=== PATIENT | female | born 1950 | race Hispanic/Latino ===

== ENCOUNTER 2018-09-24 13:06 | Observation (INO) | payer OTHER ==
--- NOTE | 2018-09-24 14:11 | RAD REPORT ---
EXAM DESCRIPTION: Dolly Single View09/24/2018 2:00 pm CLINICAL HISTORY: Chest pain COMPARISON: 2016 FINDINGS: The lungs appear clear of acute infiltrate. The heart is mildly enlarged. Postsurgical changes involve the chest. IMPRESSION: No acute abnormalities displayed
[2018-09-24 14:12] LABS: Protime INR 0.97
[2018-09-24 14:25] LABS: Albumin 3.1 g/dL (3.4-5.0); Bilirubin Direct 0.1 mg/dL (0-0.2); Bilirubin Total 0.3 mg/dL (0.2-1.0); Magnesium 2.1 mg/dL (1.8-2.4); Potassium 4.4 mmol/L (3.5-5.1); Protein, Total 6.6 g/dL (6.4-8.2); Troponin (Emerg Dept Use Only) 0.38 ng/mL (0.0-0.045)
[2018-09-24 14:40] LABS: Absolute Lymphocytes (CBC) 1.1 K/uL (0.7-4.9); Absolute Monocytes 0.6 K/uL (0.1-1.3); Absolute Neutrophil 3.3 K/uL (1.8-8.0); Basophils % 0.4 % (0-1.3); Eosinophils % 1.6 % (0-4.4); Hematocrit 28.2 % (36.0-45.0); Lymphocytes % 20.9 % (15.3-44.8); MCH 30.8 pg (27.0-35.0); MCV 89.6 fL (80-100); MPV 9.5 fL (7.6-11.3); Monocytes % 12.2 % (3.3-12.3); RBC Red Blood Cell Count 3.15 M/uL (3.86-4.86)
[2018-09-24] MEDS ORDERED: ONDANSETRON 4 MG/2 ML VIAL ONE (14:51)
[2018-09-24] MEDS ORDERED: FENTANYL CITR 100 MCG/2 ML ONE (14:51)
--- NOTE | 2018-09-24 15:24 | RAD REPORT ---
EXAM DESCRIPTION: CT - Chest Abd Pelvis Wo Con - 09/24/2018 3:07 pm CLINICAL HISTORY: Chest and abdominal pain. Cough COMPARISON: none TECHNIQUE: Computed axial tomography of the chest, abdomen and pelvis was obtained. Oral contrast wa s given. IV contrast was not requested. All CT scans are performed using dose optimization technique as appropriate and may include automated exposure control or mA/KV adjustment according to patient size. FINDINGS: The evaluation of mediastinum, lawrence, vessels and solid organs is limited secondary to the lack of IV contrast administration 17 millimeter nodules present within the right lobe of thyroid gland. No mediastinal or hilar lymphadenopathy is seen. A pleural effusion is not present. A pericardial effusion is not seen. Mild patchy opacities are present within right upper, right middle, right lower, left lower lobe and lingula Coronary arterial calcifications. The liver, spleen, pancreas, and adrenal appear grossly normal. A couple of tiny nonobstructing ivana l calculi. 2 centimeter calcified uterine fibroid Diverticula stem from the colon without evidence of diverticulitis. Appendix is normal IMPRESSION: Mild bilateral patchy lung opacities probably represent infection 17 millimeter nodule within the right lobe of thyroid gland. Nonemergent thyroid ultrasound recommend ed No acute abnormality involving the abdomen/pelvis
--- NOTE | 2018-09-24 16:46 | ER ---
Nurse's Notes [facility] Name: Cheyanne Haywood Age: 67 yrs Sex: Female : 1950 Arrival Date: 09/24/2018 Time: 13:07 Bed 16 Private MD: Nghia Jones E Diagnosis: Unstable angina Presentation: 09/24 13:18 Presenting complaint: Patient states: left-sided chest pain radiating to left arm that aa5 began today. Pt also reports non-productive cough, SOB, and nausea. Denies vomiting. 13:18 Method Of Arrival: Wheelchair aa5 13:18 Transition of care: patient was not received from another setting of care. Onset of aa5 symptoms was September 24, 2018. Risk Assessment: Do you want to hurt yourself or someone else? Patient reports no desire to harm self or others. Care prior to arrival: None. 13:18 Acuity: NORMA 2 aa5 17:32 Initial Sepsis Screen: Does the patient meet any 2 criteria? No. Patient's initial aj sepsis screen is negative. Does the patient have a suspected source of infection? No. Patient's initial sepsis screen is negative. Historical: - Allergies: 13:19 No Known Allergies; aa5 - PMHx: 13:22 Depression; Hypertension; Lupus; kidney problems; aa5 - PSHx: 13:22 D \T\ C; Breast biopsy; CABG; heart valve replacement; aa5 - Immunization history:: Flu vaccine is up to date. - Social history:: Smoking status: Patient/guardian denies using tobacco. - Ebola Screening: : No symptoms or risks identified at this time. Screenin:39 Abuse screen: Denies threats or abuse. Denies injuries from another. Nutritional aj screening: No deficits noted. Tuberculosis screening: No symptoms or risk factors identified. Fall Risk None identified. Assessment: 13:39 General: Appears in no apparent distress. comfortable, Behavior is calm, cooperative, aj appropriate for age. Pain: Complains of pain in anterior aspect of left upper chest and left arm Pain radiates to left arm Pain began 1 day ago. Also complains of nausea. Neuro: Level of Consciousness is awake, alert, obeys commands, Oriented to person, place, time, situation, Appropriate for age. Cardiovascular: Capillary refill < 3 seconds in bilateral fingers Patient's skin is warm and dry. Respiratory: Airway is patent Respiratory effort is even, unlabored, Respiratory pattern is regular, symmetrical. GI: Reports nausea. Derm: Skin is intact, is healthy with good turgor, Skin is pink, warm \T\ dry. normal. 14:40 Reassessment: called to pt room by daughter, pt c/o increasing pressure to left side of iw chest and left shoulder, also c/o nausea, ERP notified, new orders given, repeat EKG ordered. 15:32 Reassessment: Patient appears in no apparent distress at this time. No changes from aj previously documented assessment. Patient and/or family updated on plan of care and expected duration. Pain level reassessed. Patient is alert, oriented x 3, equal unlabored respirations, skin warm/dry/pink. Patient provided water with Dr Plunkett's approval. Reports pain has improved since medication administration Patient states feeling better. Patient states symptoms have improved. 17:30 Reassessment: Patient appears in no apparent distress at this time. No changes from aj previously documented assessment. Patient and/or family updated on plan of care and expected duration. Pain level reassessed. Patient is alert, oriented x 3, equal unlabored respirations, skin warm/dry/pink. Patient states feeling better. Patient states symptoms have improved. Vital Signs: 13:20 BP 154 / 93; Pulse 59; Resp 18 S; Temp 97.0(TE); Pulse Ox 100% on R/A; Weight 79.38 kg aa5 (R); Height 5 ft. 6 in. (167.64 cm) (R); Pain 6/10; 14:32 BP 178 / 85; Pulse 53; Resp 20; Pulse Ox 99% on R/A; aj 15:34 BP 184 / 83; Pulse 57; Resp 13; Pulse Ox 100% on R/A; aj 16:38 BP 180 / 81; Pulse 54; Resp 18; Pulse Ox 100% on R/A; aj 17:30 BP 180 / 82; Pulse 61; Resp 19; Pulse Ox 99% on R/A; aj 13:20 Body Mass Index 28.25 (79.38 kg, 167.64 cm) aa5 ED Course: 13:07 Patient arrived in ED. mr 13:08 Nghia Jones MD is Private Physician. mr 13:20 Arm band placed on. aa5 13:24 Ezekiel Plunkett MD is Attending Physician. gs 13:25 Triage completed. aa5 13:39 Flaquita Holland, RN is Primary Nurse. aj 13:39 Patient has correct armband on for positive identification. Placed in gown. Bed in low aj position. Call light in reach. Side rails up X 1. Pulse ox on. NIBP on. 13:43 Inserted saline lock: 20 gauge in right antecubital area, using aseptic technique. aj Blood collected. 13:57 X-ray completed. Portable x-ray completed in exam room. Patient tolerated procedure ka well. 13:58 X-ray completed. Portable x-ray completed in exam room. Patient tolerated procedure ka well. 13:58 EKG done, by ED staff, reviewed by Ezekiel Plunkett MD. jb1 14:07 Chest Single View In Process Unspecified. EDMS 14:31 Notified ED physician of other Labs. aj 15:02 EKG done, by ED staff, reviewed by Ezekiel Plunkett MD. cb2 15:07 CT completed. Patient tolerated procedure well. Patient moved back from CT. cw1 15:08 Chest Abd Pelvis Wo Con In Process Unspecified. EDMS 16:45 Whit Ding MD is Hospitalizing Provider. gs 16:45 Hospitalizing Provider role handed off by Whit Ding MD gs 16:45 Greg Cramer MD is Hospitalizing Provider. gs 17:30 No provider procedures requiring assistance completed. Patient admitted, IV remains in aj place. intact. 17:32 Patient maintains SpO2 saturation greater than 95% on room air. aj Administered Medications: 14:58 Drug: fentaNYL (PF) 25 mcg Route: IVP; Site: right antecubital; iw 15:33 Follow up: Response: Pain is decreased aj 14:58 Drug: Zofran 4 mg Route: IVP; Site: right antecubital; iw 15:34 Follow up: Response: Pain is decreased aj 17:20 Drug: Metoprolol 50 mg Route: PO; aj 17:32 Follow up: Response: Medication administered at discharge. aj Outcome: 16:46 Decision to Hospitalize by Provider. gs 17:30 Admitted to Med/surg accompanied by tech, family with patient, via wheelchair, room aj 405, with chart, Report called to Issac 17:30 Condition: stable 17:30 Instructed on the need for admit. 17:43 Patient left the ED. iw Signatures: Dispatcher [employer] EDNiko Collier jb1 Flaquita Holland RN RN aj Rivera, Poonam mr Joelle Harvey RN RN iw Calderon, Audri, RN RN aa5 Woodley, Ann cw1 Meera Gallardo Christian cb2 Starr, Gregory, MD MD
--- NOTE | 2018-09-24 16:46 | EDPHYS ---
Physician Documentation [facility] Name: Cheyanne Haywood Age: 67 yrs Sex: Female : 1950 Arrival Date: 09/24/2018 Time: 13:07 Bed 16 Private MD: Nghia Jones E ED Physician Ezekiel Plunkett HPI: 09/24 16:36 This 67 yrs old Female presents to ER via Wheelchair with complaints of Chest gs Pain, Abdominal Pain, Nausea. 16:36 The patient or guardian reports chest pain that is located primarily in the anterior gs chest wall, left. Onset: this morning. The pain does not radiate. Associated signs and symptoms: Pertinent positives: abdominal pain, shortness of breath. The chest pain is described as a heaviness. Duration: The patient or guardian reports multiple episodes, that wax and wane, with no pattern, the episodes last approximately 3 minute(s). Modifying factors: The symptoms are alleviated by nothing. the symptoms are aggravated by nothing. 16:41 Severity of pain: At its worst the pain was moderate in the emergency department the gs pain has resolved. The patient has experienced similar episodes in the past, a few times. Historical: - Allergies: 13:19 No Known Allergies; aa5 - PMHx: 13:22 Depression; Hypertension; Lupus; kidney problems; aa5 - PSHx: 13:22 D \T\ C; Breast biopsy; CABG; heart valve replacement; aa5 - Immunization history:: Flu vaccine is up to date. - Social history:: Smoking status: Patient/guardian denies using tobacco. - Ebola Screening: : No symptoms or risks identified at this time. ROS: 16:41 Abdomen/GI: Positive for ab pain and nausea for a few days. gs 16:41 All other systems are negative. Exam: 16:41 Head/Face: Normocephalic, atraumatic. Eyes: Pupils equal round and reactive to light, gs extra-ocular motions intact. Lids and lashes normal. Conjunctiva and sclera are non-icteric and not injected. Cornea within normal limits. Periorbital areas with no swelling, redness, or edema. ENT: Nares patent. No nasal discharge, no septal abnormalities noted. Tympanic membranes are normal and external auditory canals are clear. Oropharynx with no redness, swelling, or masses, exudates, or evidence of obstruction, uvula midline. Mucous membranes moist. Neck: Trachea midline, no thyromegaly or masses palpated, and no cervical lymphadenopathy. Supple, full range of motion without nuchal rigidity, or vertebral point tenderness. No Meningismus. Chest/axilla: Normal chest wall appearance and motion. Nontender with no deformity. No lesions are appreciated. Cardiovascular: Regular rate and rhythm with a normal S1 and S2. No gallops, murmurs, or rubs. Normal PMI, no JVD. No pulse deficits. Respiratory: Lungs have equal breath sounds bilaterally, clear to auscultation and percussion. No rales, rhonchi or wheezes noted. No increased work of breathing, no retractions or nasal flaring. Abdomen/GI: Soft, non-tender, with normal bowel sounds. No distension or tympany. No guarding or rebound. No evidence of tenderness throughout. Back: No spinal tenderness. No costovertebral tenderness. Full range of motion. Skin: Warm, dry with normal turgor. Normal color with no rashes, no lesions, and no evidence of cellulitis. MS/ Extremity: Pulses equal, no cyanosis. Neurovascular intact. Full, normal range of motion. Neuro: Awake and alert, GCS 15, oriented to person, place, time, and situation. Cranial nerves II-XII grossly intact. Motor strength 5/5 in all extremities. Sensory grossly intact. Cerebellar exam normal. Normal gait. 16:41 Constitutional: The patient appears alert, awake. 16:41 ECG was reviewed by the Attending Physician. Vital Signs: 13:20 BP 154 / 93; Pulse 59; Resp 18 S; Temp 97.0(TE); Pulse Ox 100% on R/A; Weight 79.38 kg aa5 (R); Height 5 ft. 6 in. (167.64 cm) (R); Pain 6/10; 14:32 BP 178 / 85; Pulse 53; Resp 20; Pulse Ox 99% on R/A; aj 15:34 BP 184 / 83; Pulse 57; Resp 13; Pulse Ox 100% on R/A; aj 16:38 BP 180 / 81; Pulse 54; Resp 18; Pulse Ox 100% on R/A; aj 17:30 BP 180 / 82; Pulse 61; Resp 19; Pulse Ox 99% on R/A; aj 13:20 Body Mass Index 28.25 (79.38 kg, 167.64 cm) aa5 MDM: 13:47 Patient medically screened. 16:41 Differential diagnosis: acute myocardial infarction, coronary artery disease pneumonia, gs thoracic aortic disection. Data reviewed: vital signs, nurses notes. Response to treatment: the patient is now symptom free. Physician consultation: Matthew Braden MD and will see patient in inpatient room. 09/24 13:36 Order name: Basic Metabolic Panel; Complete Time: 15:50 09/24 13:36 Order name: CBC with Diff; Complete Time: 15:50 09/24 13:36 Order name: LFT's; Complete Time: 15:50 09/24 13:36 Order name: Magnesium; Complete Time: 15:50 09/24 13:36 Order name: NT PRO-BNP; Complete Time: 15:50 09/24 13:36 Order name: PT-INR; Complete Time: 15:50 09/24 13:36 Order name: Troponin (emerg Dept Use Only); Complete Time: 15:50 09/24 13:36 Order name: XRAY Chest (1 view) 09/24 13:37 Order name: Chest Single View; Complete Time: 15:50 EDNV 09/24 14:05 Order name: Lipase; Complete Time: 15:50 09/24 15:05 Order name: Chest Abd Pelvis Wo Con; Complete Time: 15:50 EDMS 09/24 17:14 Order name: Troponin I 09/24 13:36 Order name: EKG; Complete Time: 13:37 09/24 13:36 Order name: Cardiac monitoring; Complete Time: 13:43 09/24 13:36 Order name: EKG - Nurse/Tech; Complete Time: 13:44 09/24 13:36 Order name: IV Saline Lock; Complete Time: 13:44 09/24 13:36 Order name: Labs collected and sent; Complete Time: 13:43 09/24 13:36 Order name: O2 Per Protocol; Complete Time: 13:43 09/24 13:36 Order name: O2 Sat Monitoring; Complete Time: 13:43 09/24 13:37 Order name: EKG Electrocardiogram [facility] 09/24 14:42 Order name: EKG; Complete Time: 14:42 09/24 14:42 Order name: EKG - Nurse/Tech; Complete Time: 15:02 EC:41 Rate is 53 beats/min. Rhythm is regular, Normal Sinus Rhythm. Clinical impression: Abnormal EKG without significant change. Administered Medications: 14:58 Drug: fentaNYL (PF) 25 mcg Route: IVP; Site: right antecubital; iw 15:33 Follow up: Response: Pain is decreased aj 14:58 Drug: Zofran 4 mg Route: IVP; Site: right antecubital; iw 15:34 Follow up: Response: Pain is decreased aj 17:20 Drug: Metoprolol 50 mg Route: PO; aj 17:32 Follow up: Response: Medication administered at discharge. Disposition: 16:41 Critical Care:. Disposition: 09/24/18 16:46 Hospitalization ordered by Greg Cramer for Observation. Preliminary diagnosis is Unstable angina. - Bed requested for Telemetry/MedSurg (observation). - Status is Observation. iw - Condition is Stable. - Problem is new. - Symptoms have improved. UTI on Admission? No Critical care time excluding procedures: 16:41 Critical care time: Bedside Care: 10 minutes, Consultation: 10 minutes, Family gs Intervention: 10 minutes. Total time: 30 minutes Signatures: Dispatcher [employer] EDHattie Howell RN RN dw Myers, Amanda, RN RN aj Williams, Irene RN Ayanna Khanna, RN RN aa5 Ezekiel Plunkett MD MD Corrections: (The following items were deleted from the chart) 15:05 14:33 Stone Protocol+CT.RAD.BRZ ordered. EDNV EDMS 15:05 14:41 Thorax Wo Con+CT.RAD.BRZ ordered. EDNV EDMS 17:13 16:46 Hospitalization Ordered by Greg Cramer MD for Observation. Preliminary diagnosis dw is Unstable angina. Bed requested for Telemetry/MedSurg (observation). Status is Observation. Condition is Stable. Problem is new. Symptoms have improved. UTI on Admission? No. gs 17:43 17:13 09/24/2018 16:46 Hospitalization Ordered by Greg Cramer MD for Observation. iw Preliminary diagnosis is Unstable angina. Bed requested for Telemetry/MedSurg (observation). Status is Observation. Condition is Stable. Problem is new. Symptoms have improved. UTI on Admission? No. dw
[2018-09-24] MEDS ORDERED: METOPROLOL TAR 50 MG TAB ONE (17:26)
[2018-09-24] MEDS ORDERED: ALBUTEROL 2.5 MG/3 ML NEB SOL NEB PRN (17:49)
[2018-09-24] MEDS ORDERED: ACETAMINOPHEN 500 MG TAB PO PRN (17:49)
[2018-09-24] MEDS ORDERED: ONDANSETRON 4 MG/2 ML VIAL IV PRN (17:49)
[2018-09-24] MEDS ORDERED: MORPHINE 2 MG/ML SYR IV PRN (17:52)
--- NOTE | 2018-09-24 17:56 | P.HP ---
Certification for Inpatient Patient admitted to: Observation Practitioner: I am a practitioner with admitting privileges, knowledge of patient current condition, hospital course, and medical plan of care. Services: Services provided to patient in accordance with Admission requirements found in Title 42 Section 412.3 of the Code of Federal Regulations Patient History Date of Service: 09/24/18 Reason for admission: Chest pain History of Present Illness: This is a 67 yr old female with hx of aortic valve replacement, CABG (2016), lupus, HTN and CKD stage 5 admitted for chest pain. Patient reports sharp, pressure like chest pain that started the morning of admission while patient was at rest. SHe describes it as left sided, radiating to left arm without any alleviating or exacerbating factors. States that it is intermittent and lasts for 203 minutes before resolving spontaneously. THis pain was associated with nausea and vomiting. She also describes abdominal pain that was diffuse associated with nausea. Denies any dizziness, GOLDBERG, presyncopal/syncopal episode , diarrhea or constipation. At the time of my exam, she states that her nausea and abdominal pain had resolved, though chest pain was still there. SHe was alert and oriented x 3 and was in no acute distress Allergies No Known Drug Allergies Allergy (Verified 11/01/16 17:19) Unknown Home Medications: Atorvastatin Calcium [Lipitor] 20 mg PO DAILY 11/01/16 Cholecalciferol (Vitamin D3) [Vitamin D3] 2,000 unit PO DAILY 11/01/16 Hydroxychloroquine Sulfate 200 mg PO BID 11/01/16 Metoprolol Tartrate [Lopressor*] 50 mg PO BID 11/01/16 Sertraline HCl 75 mg PO DAILY 11/01/16 Calcitrol [Rocaltrol*] 0.25 mcg PO DAILY 09/24/18 Diltiazem HCl [Cartia Xt] 180 mg PO DAILY 09/24/18 Doxazosin Mesylate [Cardura] 2 mg PO BID 09/24/18 - Past Medical/Surgical History Has patient received pneumonia vaccine in the past: Yes Diabetic: No -: Hypertension -: Aortic valve replacement -: Coronary artery disease, CABG x1 vessel -: Lupus -: Chronic renal disease -: Anemia of chronic disease -: Depression -: Aortic valve replacement -: CABG x1 vessel -: Breast biopsies -: D/C Psychosocial/ Personal History: The patient is . She has children. She does not work. - Family History Mother -: Other (see notes) (Dayami Gehrig's disease) Father -: Heart disease, Diabetes - Social History Alcohol use: Yes CD- Drugs: No Caffeine use: Yes Review of Systems General: Unremarkable Eyes: Unremarkable ENT: Unremarkable Respiratory: Shortness of Breath, As per HPI Cardiovascular: Chest Pain, As per HPI Gastrointestinal: Nausea, Abdominal Pain, As per HPI Genitourinary: Unremarkable Musculoskeletal: Unremarkable Integumentary: Unremarkable Neurological: Unremarkable Lymphatics: Unremarkable Physical Examination - Vital Signs Temperature: 97.0 F Blood Pressure: 180/82 Pulse: 61 Respirations: 19 - Physical Exam General: Alert, In no apparent distress, Oriented x3, Obese HEENT: Atraumatic, PERRLA, Mucous membr. moist/pink, EOMI, Sclerae nonicteric Neck: Supple, 2+ carotid pulse no bruit, No LAD, Without JVD or thyroid abnormality Respiratory: Clear to auscultation bilaterally, Normal air movement Cardiovascular: Regular rate/rhythm, Normal S1 S2 Gastrointestinal: Normal bowel sounds, No tenderness Musculoskeletal: No tenderness Integumentary: No rashes Neurological: Normal gait, Normal speech, Normal strength at 5/5 x4 extr, Normal tone, Normal affect - Studies Laboratory Data (last 24 hrs) 09/24/18 13:45: Lipase 238 09/24/18 13:45: PT 11.5, INR 0.97 09/24/18 13:45: WBC 5.1, Hgb 9.7 L, Hct 28.2 L, Plt Count 103 L 09/24/18 13:45: Sodium 145, Potassium 4.4, BUN 56 H, Creatinine 3.80 H, Glucose 113 H, Magnesium 2.1, Total Bilirubin 0.3, AST 26, ALT 18, Alkaline Phosphatase 123 H Assessment and Plan - Plan This is a 67yr old female with: Chest pain, R/O ACS Trend troponins, initial troponin slightly elevated though this could be secondary to CKD O2 prn, IV morphine for pain control Nitro prn Cardiology consulted States she had a recent ECHO but has not had a stress test recently. Aortic valve replacement Does not seem to be on anticoagulation at home Continue BB otherwise stable at this time HTN Will go ahead and restart home medications once reconciled Hydralazine prn CABG Hx Continue home medications CKD, stage 5 Still making urine, Cr seems to be at baseline Will continue to monitor DVT prophylaxis: Lovenox GI prophylasis: Not needed Diet: Heart healthy Dispo: Admit to floor with tele, pending symptomatic improvement and cardiology recommendations. - Advance Directives Does patient have a Living Will: No Does patient have a Durable POA for Healthcare: No
[2018-09-24 17:58] VITALS: BMI 28.2
[2018-09-24] MEDS: ENOXAPARIN 30 MG/0.3 ML SQ SCH (19:12)
[2018-09-25 07:00] LABS: Absolute Lymphocytes (CBC) 1.5 K/uL (0.7-4.9); Absolute Monocytes 0.7 K/uL (0.1-1.3); Absolute Neutrophil 2.8 K/uL (1.8-8.0); Basophils % 0.3 % (0-1.3); Eosinophils % 2.4 % (0-4.4); Hematocrit 28.9 % (36.0-45.0); Lymphocytes % 29.6 % (15.3-44.8); MCH 30.4 pg (27.0-35.0); MCV 89.9 fL (80-100); MPV 9.1 fL (7.6-11.3); Monocytes % 12.9 % (3.3-12.3); RBC Red Blood Cell Count 3.21 M/uL (3.86-4.86)
[2018-09-25 07:23] LABS: Albumin 3.1 g/dL (3.4-5.0); Bilirubin Total 0.3 mg/dL (0.2-1.0); Potassium 4.8 mmol/L (3.5-5.1); Protein, Total 6.5 g/dL (6.4-8.2)
[2018-09-25] MEDS ORDERED: ATORVASTATIN 40 MG TAB PO SCH ×2 (09:00→21:00)
[2018-09-25] MEDS ORDERED: ENOXAPARIN 40 MG/0.4 ML SQ SCH (09:00)
[2018-09-25] MEDS: SERTRALINE HCL 50 MG TAB PO SCH (10:15)
[2018-09-25] MEDS: DOXAZOSIN 2 MG TAB PO SCH ×2 (10:16→20:32)
[2018-09-25] MEDS: DILTIAZEM HCL 180 MG SR CAP PO SCH (10:20)
[2018-09-25] MEDS: METOPROLOL TAR 50 MG TAB PO SCH ×2 (10:21→20:30)
[2018-09-25] MEDS: HYDROXYCHLOROQUINE 200MG TAB PO SCH ×2 (10:22→20:29)
[2018-09-25] MEDS: PANTOPRAZOLE 40MG TABLET PO SCH (17:15)
[2018-09-25] MEDS: ENOXAPARIN 30 MG/0.3 ML SQ SCH (17:16)
--- NOTE | 2018-09-25 17:39 | CON ---
Date of Consultation: 09/24/[address] Cramer's service on 09/24/2018. Reason For Admission: Chest pain. History Of Present Illness: Ms. Haywood is 67. She is a patient of Dr. Cooper, has a history of CABG , porcine aortic valve, hypertension, lupus, renal insufficiency stage 5. Was recently seen by Dr. Salazar swan and had an echocardiogram in the office. Came in with chest pain; abdominal pain; nausea; hype rtension, 180/82. Was found to have a creatinine of 3.80. Chest x-ray and CT scan showed a possible pulmonary infection and a thyroid nodule that needs to be investigated. Her hemoglobin was 9.7. Tr oponin was 0.38. Her BNP was 14,422. She is asymptomatic today. Allergies: NONE. Review of Systems: Negative. Social History: Negative. Family History: Unremarkable. Medications: At home include Lipitor, Cartia, Cardura, Plaquenil, Lopressor, sertraline. Physical Examination: Vital Signs: Stable. She was afebrile. HEENT: Negative. Neck: Supple without any bruit, lymphadenopathy, JVD, or thyromegaly. Chest: Clear to auscultation and percussion. Cardiac: Revealed a regular rhythm and rate with an S4 gallop. No murmurs or rubs. Abdomen: Obese, but benign. Extremities: Revealed 1+ edema. Diagnostic Data: As stated earlier. Impression And Plan: 1.Coronary artery disease, status post coronary artery bypass graft. Recent echocardiogram in the o [facility] was negative. The patient's chest pain is atypical. She has abdominal pain. She has nausea. Some of this may be gastroesophageal reflux disease. Nevertheless, the patient cannot have another catheterization. Her creatinine is 3.80. If she goes on dialysis, which apparently is being planned , we will reconsider that. I think she is going to go on peritoneal dialysis soon. 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 It may be worth getting a Lexiscan to see where we stand, but again it may be better to wait till after her kidney issue gets settled. I recommend that we add aspirin to her regimen, which she has not taken. I think we need to increase her beta blockers and give her nitroglycerin to take on an as-needed basis. 2.Status post aortic valve replacement with normal echo recently. This was done in August of 2016. 3.Hypertension, poorly controlled. Hopefully, increasing the beta max would help. 4.Lupus. 5.Stage 5 renal insufficiency. 6.Anemia, probably secondary to renal disease. 7.Elevated troponin and BNP, secondary to chronic coronary artery disease and renal failure. There was a note of a thyroid nodule that hopefully her primary care physician will follow up on that for [facility]. From my standpoint, Ms. Haywood can go home whenever it is okay with Dr. Cramer, and we will see her in the office in the near future. MAMTA/HECTOR Voice ID: [id number] Report ID: [id number]
[2018-09-25] MEDS ORDERED: ENOXAPARIN 30 MG/0.3 ML SQ SCH (18:00)
[2018-09-25 21:14] VITALS: O2SAT 97
--- NOTE | 2018-09-25 23:07 | P.PN ---
Subjective Date of Service: 09/25/18 Chief Complaint: Chest pain Patient seen and examined at bedside. Daughter at bedside. Case discussed with nursing staff. Patient reports improved chest pain though states abdominal pain still present. Nausea has resolved. Otherwise denies any complaints. Review of Systems As noted Physical Examination - Vital Signs Temperature: 97.5 F Blood Pressure: 149/88 Pulse: 59 Respirations: 18 Pulse Ox (%): 97 - Physical Exam General: Alert, In no apparent distress, Oriented x3 HEENT: Atraumatic, PERRLA, EOMI Neck: Supple, JVD not distended Respiratory: Clear to auscultation bilaterally, Normal air movement Cardiovascular: Regular rate/rhythm, Normal S1 S2 Gastrointestinal: Normal bowel sounds, Tenderness (Mild tenderness) Musculoskeletal: No tenderness Integumentary: No rashes Neurological: Normal speech, Normal tone, Normal affect Lymphatics: No axilla or inguinal lymphadenopathy Assessment And Plan - Plan This is a 67yr old female with: Chest pain, R/O ACS initial troponin slightly elevated, though stable x 2. This could be secondary to CKD O2 prn, IV morphine for pain control Nitro prn Cardiology consulted. Recommendations appreciated. States she had a recent ECHO but has not had a stress test recently. PO protonix for possible GI coverage ASA 81 mg added Aortic valve replacement Does not seem to be on anticoagulation at home Continue BB otherwise stable at this time HTN Will go ahead and restart home medications once reconciled Hydralazine prn CABG Hx Continue home medications CKD, stage 5 Still making urine, Cr seems to be at baseline Will continue to monitor Waiting for possibly starting dialysis. Outpatient dr setting up for this. She will continue to follow up outpatient. DVT prophylaxis: Lovenox GI prophylasis: Added PO protonix Diet: Heart healthy Dispo: pending symptomatic improvement. Likely discharge tomorrow with outpatient follow up
[2018-09-26] MEDS ORDERED: FLUTICASONE 50MCG NASAL SPRAY NAS PRN (06:49)
--- NOTE | 2018-09-26 07:06 | EKG ---
Test Date: 2018-09-24 Test Time: 14:57:28 Data Warehousing Architect: LUIS MEASUREMENT RESULTS: Intervals: Rate: 53 MS: 176 QRSD: 110 QT: 512 QTc: 480 Walker: P: 53 MS: 176 QRS: -24 T: 18 INTERPRETIVE STATEMENTS: Sinus bradycardia Voltage criteria for left ventricular hypertrophy Abnormal ECG Compared to ECG 09/24/2018 13:27:57 No significant changes Electronically Signed On 09-26-18 07:03:46 SOCIAL SERVICES SPECIALIST by Matthew Braden
--- NOTE | 2018-09-26 07:07 | EKG ---
Test Date: 2018-09-24 Test Time: 13:27:57 Welt Treater: MAXIMUS MEASUREMENT RESULTS: Intervals: Rate: 56 IL: 182 QRSD: 114 QT: 506 QTc: 488 [place]: P: 32 IL: 182 QRS: -28 T: 32 INTERPRETIVE STATEMENTS: Sinus bradycardia Voltage criteria for left ventricular hypertrophy Abnormal ECG Compared to ECG 11/01/2016 11:43:04 Prolonged QT interval no longer present Electronically Signed On 09-26-18 07:03:58 ASSISTANT BOILER OPERATOR by Matthew Braden
[2018-09-26 07:30] LABS: Albumin 2.7 g/dL (3.4-5.0); Bilirubin Total 0.2 mg/dL (0.2-1.0); Potassium 4.5 mmol/L (3.5-5.1)
[2018-09-26 08:14] LABS: Absolute Lymphocytes (CBC) 1.3 K/uL (0.7-4.9); Absolute Monocytes 0.6 K/uL (0.1-1.3); Absolute Neutrophil 2.2 K/uL (1.8-8.0); Basophils % 0.4 % (0-1.3); Eosinophils % 2.4 % (0-4.4); Hematocrit 26.8 % (36.0-45.0); Lymphocytes % 30.1 % (15.3-44.8); MCH 31.1 pg (27.0-35.0); MCV 89.9 fL (80-100); MPV 9.3 fL (7.6-11.3); Monocytes % 14.2 % (3.3-12.3); RBC Red Blood Cell Count 2.99 M/uL (3.86-4.86)
[2018-09-26] MEDS: DOXAZOSIN 2 MG TAB PO SCH (08:35)
[2018-09-26] MEDS: METOPROLOL TAR 50 MG TAB PO SCH (08:36)
[2018-09-26] MEDS: DILTIAZEM HCL 180 MG SR CAP PO SCH (08:36)
[2018-09-26] MEDS: SERTRALINE HCL 50 MG TAB PO SCH (08:36)
[2018-09-26] MEDS: HYDROXYCHLOROQUINE 200MG TAB PO SCH (08:37)
[2018-09-26] MEDS: PANTOPRAZOLE 40MG TABLET PO SCH (08:40)
[2018-09-26] MEDS ORDERED: ASPIRIN EC 81 MG TAB PO SCH (09:00)
[2018-09-26 12:01] VITALS: BP 143/86; TEMP 97.3
--- NOTE | 2018-09-26 16:42 | P.DS ---
Admission Date: 09/24/18 Discharge Date: 09/26/18 Disposition: ROUTINE DISCHARGE Discharge Condition: GOOD Reason for Admission: Chest pain Consultations: Cardiology Brief History of Present Illness: This is a 67 yr old female with hx of aortic valve replacement, CABG (2015), lupus, HTN and CKD stage 5 admitted for chest pain. Patient reports sharp, pressure like chest pain that started the morning of admission while patient was at rest. SHe describes it as left sided, radiating to left arm without any alleviating or exacerbating factors. States that it is intermittent and lasts for 203 minutes before resolving spontaneously. THis pain was associated with nausea and vomiting. She also describes abdominal pain that was diffuse associated with nausea. Denies any dizziness, G[place]ERG, presyncopal/syncopal episode , diarrhea or constipation. At the time of my exam, she states that her nausea and abdominal pain had resolved, though chest pain was still there. SHe was alert and oriented x 3 and was in no acute distress Hospital Course: Patient was admitted for chest pain. Her troponins were in the slightly elevated ranged x2 likely secondary to CKD. She was given oxygen as needed and IV morphine and nitro p.r.n. for pain control. Cardiology was consulted. Per cardiology, no stent placement could be done at this time due to her CKD. Family wanted patient to follow up outpatient for a stress test at that time. Oral Protonix was added for reflux coverage, this helped patient's symptoms improved quite a lot. Aspirin 81 mg was also added. At the time of discharge, patient's symptoms of chest pain and abdominal pain had resolved. She was tolerating a regular diet, and she remained hemodynamically stable throughout the stay. Aortic valve replacement Remained stable throughout the stay common on which medication changes made at discharge HTN Blood pressure remained stable throughout the stay. No medication changes made at discharge. CABG Hx CKD, stage 5 Creatinine remained at baseline throughout stay. Waiting for possibly starting dialysis. Outpatient dr setting up for this. 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 Encouraged to keep that appointment to push for for dialysis. Vital Signs/Physical Exam: Temp Pulse Resp BP Pulse Ox 97.3 F 51 18 143/86 H 97 09/26/18 12:00 09/26/18 12:00 09/26/18 12:00 09/26/18 12:00 09/26/18 12:00 General: Alert, In no apparent distress HEENT: Atraumatic, PERRLA, EOMI Neck: Supple, JVD not distended Respiratory: Clear to auscultation bilaterally, Normal air movement Cardiovascular: Regular rate/rhythm, Normal S1 S2 Gastrointestinal: Normal bowel sounds, No tenderness Musculoskeletal: No tenderness Integumentary: No rashes Neurological: Normal speech, Normal tone, Normal affect Lymphatics: No axilla or inguinal lymphadenopathy Laboratory Data at Discharge: WBC 4.2 K/uL (4.3-10.9) L D 09/26/18 07:28 Hgb 9.3 g/dL (12.0-15.0) L 09/26/18 07:28 Hct 26.8 % (36.0-45.0) L 09/26/18 07:28 Plt Count 107 K/uL (152-406) L 09/26/18 07:28 PT 11.5 SECONDS (9.5-12.5) 09/24/18 13:45 INR 0.97 09/24/18 13:45 Sodium 143 mmol/L (136-145) 09/26/18 06:42 Potassium 4.5 mmol/L (3.5-5.1) 09/26/18 06:42 BUN 57 mg/dL (7-18) H 09/26/18 06:42 Creatinine 3.90 mg/dL (0.55-1.3) H 09/26/18 06:42 Glucose 82 mg/dL (74-106) 09/26/18 06:42 Phosphorus 6.1 mg/dL (2.5-4.9) H 09/25/18 16:05 Magnesium 2.1 mg/dL (1.8-2.4) 09/24/18 13:45 Total Bilirubin 0.2 mg/dL (0.2-1.0) 09/26/18 06:42 AST 19 U/L (15-37) 09/26/18 06:42 ALT 15 U/L (12-78) 09/26/18 06:42 Alkaline Phosphatase 102 U/L (45-117) 09/26/18 06:42 Troponin I 0.41 ng/mL (0.0-0.045) H 09/25/18 01:10 Triglycerides 142 mg/dL (<150) 09/25/18 06:33 Cholesterol 142 mg/dL (<200) 09/25/18 06:33 HDL Cholesterol 57 mg/dL (40-60) 09/25/18 06:33 Cholesterol/HDL Ratio 2.49 09/25/18 06:33 Lipase 238 U/L (73-393) 09/24/18 13:45 Home Medications: Atorvastatin Calcium [Lipitor] 20 mg PO DAILY 11/01/16 Cholecalciferol (Vitamin D3) [Vitamin D3] 2,000 unit PO DAILY 11/01/16 Hydroxychloroquine Sulfate 200 mg PO DAILY 11/01/16 Metoprolol Tartrate [Lopressor*] 50 mg PO BID 11/01/16 Sertraline HCl 75 mg PO DAILY 11/01/16 Calcitrol [Rocaltrol*] 0.25 mcg PO DAILY 09/24/18 Diltiazem HCl [Cartia Xt] 180 mg PO DAILY 09/24/18 Doxazosin Mesylate [Cardura] 2 mg PO BID 09/24/18 Nitroglycerin 0.4 mg SL SEECOM #20 tab.subl 09/26/18 Pantoprazole [Protonix Tab*] 40 mg PO BIDAC #20 tab 09/26/18 New Medications: Nitroglycerin 0.4 mg SL SEECOM #20 tab.subl Pantoprazole [Protonix Tab*] 40 mg PO BIDAC #20 tab Patient Discharge Instructions: Please follow up with the primary care physician in 1 week. Please also follow up with a customer response representative in the next 2-3 weeks. Please keep your appointment in early October to see a superintendent ammunition storage. New medications: Protonix, nitro sublingual tablets as needed Diet: Renal Activity: Ad richie Followup: Matthew Braden MD [ACTIVE - CAN ADMIT] - Nghia Jones MD [Primary Care Provider] - Jong Cooper MD [ACTIVE - CAN ADMIT] - Physician Review: Patient Assessed, Agree with Above Assessment and Plan Time spent managing pt's care (in minutes): 55
== END 2018-09-26 15:46 | disposition home or self-care (01) ==
LOC: ER 13:06 → ERHOLD 16:51 → 4TH 17:25
PROVIDERS: ADMIT Family Medicine; ATTEND Family Medicine
DX: R07.9 Chest pain, unspecified (principal); R11.2 Nausea with vomiting, unspecified; I12.0 Hypertensive chronic kidney disease with stage 5 chronic kidney disease or end stage renal disease; N18.5 Chronic kidney disease, stage 5; I25.10 Atherosclerotic heart disease of native coronary artery without angina pectoris; Z95.2 Presence of prosthetic heart valve; Z95.1 Presence of aortocoronary bypass graft
CPT/HCPCS: 36415 ×2; 71045; 71250; 74176; 80048; 80053 ×2; 80061; 80076; 83690; 83735; 83880; 84100; 84484 ×3; 85025 ×3; 85610; 93005 ×2; 94760 ×3; 96374; 96375; 99285; G0378 ×2; J1650 ×2; J2405; J3010

== ENCOUNTER 2018-09-29 23:33 | Observation (INO) | payer OTHER ==
[2018-09-30 00:20] LABS: Protime INR 0.96
[2018-09-30 00:22] LABS: Absolute Lymphocytes (CBC) 0.7 K/uL (0.7-4.9); Absolute Monocytes 0.5 K/uL (0.1-1.3); Absolute Neutrophil 3.7 K/uL (1.8-8.0); Basophils % 0.4 % (0-1.3); Eosinophils % 1.4 % (0-4.4); Hematocrit 25.6 % (36.0-45.0); Lymphocytes % 14.3 % (15.3-44.8); MCH 30.6 pg (27.0-35.0); MCV 90.6 fL (80-100); MPV 8.9 fL (7.6-11.3); Monocytes % 10.5 % (3.3-12.3); RBC Red Blood Cell Count 2.82 M/uL (3.86-4.86)
--- NOTE | 2018-09-30 00:39 | ER ---
Nurse's Notes [facility] Name: Cheyanne Haywood Age: 67 yrs Sex: Female : 1950 Arrival Date: 09/29/2018 Time: 23:39 Bed 15 Private MD: Diagnosis: Chest pain, unspecified;Essential (primary) hypertension;Anemia, unspecified;Unspecified kidney failure;Cardiomegaly Presentation: 09/29 23:40 Presenting complaint: EMS states: sudden chest pain started 1830H radiating to left rr5 arm. pain score of 8/10 patient took nitro tablet around 2000H. 2 nitro spray and aspirin 243mgtablet given by EMS. Transition of care: patient was not received from another setting of care. Onset of symptoms was September 29, 2018 at 18:30. Risk Assessment: Do you want to hurt yourself or someone else? Patient reports no desire to harm self or others. Initial Sepsis Screen: Does the patient meet any 2 criteria? No. Patient's initial sepsis screen is negative. Does the patient have a suspected source of infection? No. Patient's initial sepsis screen is negative. Note in via EMS GCS 15/15 not indistress,had IV cannula G20 intact at left forearm, hematoma around left forearm noted. Care prior to arrival: Medication(s) given: ASA, x 3, 243mg given by the EMS, patient took her aspirin 1 tablet. 23:40 Method Of Arrival: EMS: [facility] rr5 23:40 Acuity: NORMA 3 rr5 Triage Assessment: 09/30 00:08 General: Appears in no apparent distress. comfortable, Behavior is calm, cooperative, rr5 appropriate for age. Pain: Complains of pain in chest Pain radiates to left arm Pain currently is 1 out of 10 on a pain scale. Quality of pain is described as aching, Pain began gradually, Is intermittent. EENT: No signs and/or symptoms were reported regarding the EENT system. Neuro: Level of Consciousness is awake, alert, obeys commands, Oriented to person, place, time, situation. Cardiovascular: Capillary refill < 3 seconds Patient's skin is warm and dry. Respiratory: Airway is patent Respiratory effort is even, unlabored, Respiratory pattern is regular, symmetrical. GI: Abdomen is round. :. : No signs and/or symptoms were reported regarding the genitourinary system. Derm: No signs and/or symptoms reported regarding the dermatologic system. Musculoskeletal: No signs and/or symptoms reported regarding the musculoskeletal system. Historical: - Allergies: 00:08 No Known Allergies; rr5 - Home Meds: 00:08 aspirin 325 mg Oral tab 1 tab once daily [Active]; metoprolol tartrate 50 mg Oral tab 2 rr5 times per day [Active]; carpia xp 180mg OD [Active]; doxocin 2 mg tablet BID [Active]; atorvastatin Oral [Active]; Plaquenil 200 mg Oral tab 2 tabs 2 times per day [Active]; Zoloft 20 mg/mL Oral conc 7.5 mL once daily [Active]; Plavix 75 mg Oral tab [Active]; - PMHx: 00:08 Depression; Hypertension; kidney problems; Lupus; rr5 - PSHx: 00:08 CABG; aortic valve replacement; rr5 - Immunization history:: Adult Immunizations Adult Immunizations not up to date. - Social history:: Smoking status: Patient/guardian denies using tobacco, Patient/guardian denies using alcohol, street drugs, tobacco products. - Ebola Screening: : Patient negative for fever greater than or equal to 101.5 degrees Fahrenheit, and additional compatible Ebola Virus Disease symptoms Patient denies exposure to infectious person Patient denies travel to an Ebola-affected area in the 21 days before illness onset. - Family history:: not pertinent. Screenin:15 Abuse screen: Denies threats or abuse. Denies injuries from another. Nutritional rr5 screening: No deficits noted. Tuberculosis screening: No symptoms or risk factors identified. Fall Risk None identified. Assessment: 00:13 General: Appears in no apparent distress. comfortable, Behavior is calm, cooperative. rr5 Pain: Complains of pain in chest Pain radiates to left arm Pain currently is 1 out of 10 on a pain scale. Quality of pain is described as aching, Pain began gradually, Is intermittent. Neuro: Level of Consciousness is awake, alert, obeys commands, Oriented to person, place, time. Cardiovascular: Capillary refill < 3 seconds Patient's skin is warm and dry. Respiratory: Airway is patent Respiratory effort is even, unlabored, Respiratory pattern is regular, symmetrical. GI: Abdomen is round. : No signs and/or symptoms were reported regarding the genitourinary system. EENT: No signs and/or symptoms were reported regarding the EENT system. Derm: No signs and/or symptoms reported regarding the dermatologic system. Musculoskeletal: No signs and/or symptoms reported regarding the musculoskeletal system. Capillary refill < 3 seconds, Range of motion: intact in all extremities. 02:00 General: Appears in no apparent distress. Neuro: Level of Consciousness is awake, lp1 alert, obeys commands. Respiratory: Respiratory effort is even, unlabored. Derm: Skin is pink, warm \T\ dry. 03:00 Reassessment: Patient appears in no apparent distress at this time. Patient and/or lp1 family updated on plan of care and expected duration. Pain level reassessed. Patient and family aware of pending admission Patient states symptoms have improved. Vital Signs: 00:00 BP 131 / 79; Pulse 56; Resp 17; Temp 98.5(O); Pulse Ox 99% on R/A; Weight 79.38 kg; rr5 Height 5 ft. 6 in. (167.64 cm); Pain 11/24; 00:30 BP 156 / 93; Pulse 56; Resp 15; Pulse Ox 98% on R/A; lp1 01:00 BP 166 / 77; Pulse 58; Resp 17; Pulse Ox 98% on R/A; lp1 02:00 BP 164 / 69; Pulse 57; Resp 16; Pulse Ox 98% on R/A; lp1 03:00 BP 159 / 84; Pulse 60; Resp 16; Pulse Ox 97% on R/A; lp1 00:00 Body Mass Index 28.25 (79.38 kg, 167.64 cm) rr5 ED Course: 09/29 23:39 Patient arrived in ED. am2 23:40 Kadeem Jarvis, RN is Primary Nurse. rr5 23:50 Triage completed. rr5 09/30 00:00 Arm band placed on. EKG completed in triage. Results shown to . rr5 00:00 Inserted saline lock: 20 gauge in left forearm, using aseptic technique. ,using aseptic rr5 technique. by EMS Blood collected. 00:11 Jaime Carrizales MD is Attending Physician. mike 00:14 XRAY Chest (1 view) In Process Unspecified. EDMS 00:15 Patient has correct armband on for positive identification. front end technician on. Pulse rr5 ox on. NIBP on. 00:15 Patient maintains SpO2 saturation greater than 95% on room air. rr5 00:37 Brandee Leo MD is Hospitalizing Provider. [facility] 03:05 No provider procedures requiring assistance completed. Patient admitted, IV remains in lp1 place. Administered Medications: Discontinued: NS 0.9% 1000 ml IV at 125 ml/hr continuous 00:55 Drug: Pepcid 20 mg Route: IVP; Site: left forearm; rr5 03:45 Follow up: Response: No adverse reaction lp1 00:57 Drug: Lovenox 80 mg Route: Sub-Q; Site: right lower abdomen; rr5 03:44 Follow up: Response: No adverse reaction lp1 01:00 Drug: NS 0.9% 1000 ml Route: IV; Rate: 125 ml/hr; Site: left forearm; rr5 03:48 Follow up: Response: Other; discontinue per dr order. lp1 02:12 Not Given (Patient Refused; denies pain): morphine 2 mg IVP once rr5 02:30 Drug: Zofran 4 mg Route: IVP; Site: left forearm; lp1 03:43 Follow up: Response: No adverse reaction lp1 02:32 Drug: morphine 2 mg Route: IVP; Site: left forearm; lp1 03:44 Follow up: Response: No adverse reaction lp1 02:50 Drug: Lasix 40 mg {Note: bp 164/69.} Route: IVP; Site: left forearm; lp1 03:42 Follow up: Response: No adverse reaction lp1 Intake: Outcome: 00:38 Decision to Hospitalize by Provider. [facility] 03:05 Condition: stable lp1 03:05 Instructed on the need for admit. 03:12 Admitted to Med/surg accompanied by tech, via wheelchair, room 209, with chart, Report lp1 called to Christine Pearce RN 03:49 Patient left the ED. lp1 Signatures: Dispatcher [employer] EDJaime Cai MD MD cha Pena, Laura, RN RN lp1 Flaquita Mcgarry am2 Kadeem Jarvis, RN RN rr5
--- NOTE | 2018-09-30 00:39 | EDPHYS ---
Physician Documentation [facility] Name: Cheyanne Haywood Age: 67 yrs Sex: Female : 1950 Arrival Date: 09/29/2018 Time: 23:39 Bed 15 Private MD: ED Physician Jaime Carrizales HPI: 09/30 00:31 This 67 yrs old Female presents to ER via EMS with complaints of Chest Pain. [facility] 00:31 The patient or guardian reports chest pain that is located primarily in the substernal mike area. Onset: 2 day(s) ago. The pain does not radiate. Associated signs and symptoms: The patient has no apparent associated signs or symptoms. The chest pain is described as a pressure. Modifying factors: The symptoms are alleviated by nothing. the symptoms are aggravated by nothing. Severity of pain: At its worst the pain was mild moderate in the emergency department the pain is unchanged. The patient has experienced similar episodes in the past, several times. Historical: - Allergies: 00:08 No Known Allergies; rr5 - Home Meds: 00:08 aspirin 325 mg Oral tab 1 tab once daily [Active]; metoprolol tartrate 50 mg Oral tab 2 rr5 times per day [Active]; carpia xp 180mg OD [Active]; doxocin 2 mg tablet BID [Active]; atorvastatin Oral [Active]; Plaquenil 200 mg Oral tab 2 tabs 2 times per day [Active]; Zoloft 20 mg/mL Oral conc 7.5 mL once daily [Active]; Plavix 75 mg Oral tab [Active]; - PMHx: 00:08 Depression; Hypertension; kidney problems; Lupus; rr5 - PSHx: 00:08 CABG; aortic valve replacement; rr5 - Immunization history:: Adult Immunizations Adult Immunizations not up to date. - Social history:: Smoking status: Patient/guardian denies using tobacco, Patient/guardian denies using alcohol, street drugs, tobacco products. - Ebola Screening: : Patient negative for fever greater than or equal to 101.5 degrees Fahrenheit, and additional compatible Ebola Virus Disease symptoms Patient denies exposure to infectious person Patient denies travel to an Ebola-affected area in the 21 days before illness onset. - Family history:: not pertinent. ROS: 00:31 Constitutional: Negative for fever, chills, and weight loss, Eyes: Negative for injury, mike pain, redness, and discharge, ENT: Negative for injury, pain, and discharge, Neck: Negative for injury, pain, and swelling, Respiratory: Negative for shortness of breath, cough, wheezing, and pleuritic chest pain, Abdomen/GI: Negative for abdominal pain, nausea, vomiting, diarrhea, and constipation, Back: Negative for injury and pain, : Negative for injury, bleeding, discharge, and swelling, MS/Extremity: Negative for injury and deformity, Skin: Negative for injury, rash, and discoloration, Neuro: Negative for headache, weakness, numbness, tingling, and seizure, Psych: Negative for depression, anxiety, suicide ideation, homicidal ideation, and hallucinations, Allergy/Immunology: Negative for hives, rash, and allergies, Endocrine: Negative for neck swelling, polydipsia, polyuria, polyphagia, and marked weight changes, Hematologic/Lymphatic: Negative for swollen nodes, abnormal bleeding, and unusual bruising. 00:31 Cardiovascular: Positive for chest pain, of the chest. Exam: 00:31 Constitutional: This is a well developed, well nourished patient who is awake, alert, mike and in no acute distress. Head/Face: Normocephalic, atraumatic. Eyes: Pupils equal round and reactive to light, extra-ocular motions intact. Lids and lashes normal. Conjunctiva and sclera are non-icteric and not injected. Cornea within normal limits. Periorbital areas with no swelling, redness, or edema. ENT: Nares patent. No nasal discharge, no septal abnormalities noted. Tympanic membranes are normal and external auditory canals are clear. Oropharynx with no redness, swelling, or masses, exudates, or evidence of obstruction, uvula midline. Mucous membranes moist. Neck: Trachea midline, no thyromegaly or masses palpated, and no cervical lymphadenopathy. Supple, full range of motion without nuchal rigidity, or vertebral point tenderness. No Meningismus. Cardiovascular: Regular rate and rhythm with a normal S1 and S2. No gallops, murmurs, or rubs. Normal PMI, no JVD. No pulse deficits. Respiratory: Lungs have equal breath sounds bilaterally, clear to auscultation and percussion. No rales, rhonchi or wheezes noted. No increased work of breathing, no retractions or nasal flaring. Abdomen/GI: Soft, non-tender, with normal bowel sounds. No distension or tympany. No guarding or rebound. No evidence of tenderness throughout. Back: No spinal tenderness. No costovertebral tenderness. Full range of motion. Female : Normal external genitalia. Skin: Warm, dry with normal turgor. Normal color with no rashes, no lesions, and no evidence of cellulitis. MS/ Extremity: Pulses equal, no cyanosis. Neurovascular intact. Full, normal range of motion. Neuro: Awake and alert, GCS 15, oriented to person, place, time, and situation. Cranial nerves II-XII grossly intact. Motor strength 5/5 in all extremities. Sensory grossly intact. Cerebellar exam normal. Normal gait. Psych: Awake, alert, with orientation to person, place and time. Behavior, mood, and affect are within normal limits. 00:31 Chest/axilla: Inspection: normal, Palpation: is normal, Axilla: are normal, no acute changes, abscess, is not appreciated, cellulitis, is not appreciated, lymphadenopathy, is not appreciated. Vital Signs: 00:00 BP 131 / 79; Pulse 56; Resp 17; Temp 98.5(O); Pulse Ox 99% on R/A; Weight 79.38 kg; rr5 Height 5 ft. 6 in. (167.64 cm); Pain 10; 00:30 BP 156 / 93; Pulse 56; Resp 15; Pulse Ox 98% on R/A; lp1 01:00 BP 166 / 77; Pulse 58; Resp 17; Pulse Ox 98% on R/A; lp1 02:00 BP 164 / 69; Pulse 57; Resp 16; Pulse Ox 98% on R/A; lp1 03:00 BP 159 / 84; Pulse 60; Resp 16; Pulse Ox 97% on R/A; lp1 00:00 Body Mass Index 28.25 (79.38 kg, 167.64 cm) rr5 MDM: 00:11 Patient medically screened. [facility] 00:35 Data reviewed: vital signs, nurses notes, lab test result(s), EKG, radiologic studies, mike plain films. 09/29 23:50 Order name: Basic Metabolic Panel; Complete Time: 02:05 1 09/29 23:50 Order name: CBC with Diff; Complete Time: 02:05 [facility] 09/29 23:50 Order name: LFT's; Complete Time: 02:05 [facility] 09/29 23:50 Order name: Magnesium; Complete Time: 02:05 [facility] 09/29 23:50 Order name: NT PRO-BNP; Complete Time: 02:05 [facility] 09/29 23:50 Order name: PT-INR; Complete Time: 02:05 [facility] 09/29 23:50 Order name: Troponin (emerg Dept Use Only); Complete Time: 02:05 [facility] 09/30 00:25 Order name: CBC Smear Scan; Complete Time: 02:05 [facility] 09/30 00:31 Order name: Lipase [facility] 09/30 00:31 Order name: Urine Culture [facility] 09/30 00:32 Order name: Urine Culture [facility] 09/30 00:40 Order name: Lipase; Complete Time: 02:05 [facility] 09/30 01:38 Order name: Urine Dipstick--Ancillary (enter results) 4 09/29 23:50 Order name: XRAY Chest (1 view) [facility] 09/29 23:50 Order name: EKG; Complete Time: 23:51 [facility] 09/29 23:50 Order name: Cardiac monitoring; Complete Time: 23:51 [facility] 09/29 23:50 Order name: EKG - Nurse/Tech; Complete Time: 23:51 [facility] 09/30 00:49 Order name: CONS Physician Consult [facility] 09/30 01:58 Order name: Urine Dipstick-Ancillary; Complete Time: 02:05 [facility] 09/30 02:08 Order name: Type And Screen [facility] 09/30 03:28 Order name: Type and Screen [facility] 09/30 03:33 Order name: ABO/RH no charge [facility] 09/29 23:50 Order name: IV Saline Lock; Complete Time: 23:51 [facility] 09/29 23:50 Order name: Labs collected and sent; Complete Time: 00:07 [facility] 09/29 23:50 Order name: O2 Per Protocol; Complete Time: 23:52 [facility] 09/29 23:50 Order name: O2 Sat Monitoring; Complete Time: 23:52 [facility] 09/30 00:31 Order name: Urine Dipstick-Ancillary (obtain specimen); Complete Time: 01:36 mike Administered Medications: Discontinued: NS 0.9% 1000 ml IV at 125 ml/hr continuous 00:55 Drug: Pepcid 20 mg Route: IVP; Site: left forearm; rr5 03:45 Follow up: Response: No adverse reaction lp1 00:57 Drug: Lovenox 80 mg Route: Sub-Q; Site: right lower abdomen; rr5 03:44 Follow up: Response: No adverse reaction lp1 01:00 Drug: NS 0.9% 1000 ml Route: IV; Rate: 125 ml/hr; Site: left forearm; rr5 03:48 Follow up: Response: Other; discontinue per dr order. lp1 02:12 Not Given (Patient Refused; denies pain): morphine 2 mg IVP once rr5 02:30 Drug: Zofran 4 mg Route: IVP; Site: left forearm; lp1 03:43 Follow up: Response: No adverse reaction lp1 02:32 Drug: morphine 2 mg Route: IVP; Site: left forearm; lp1 03:44 Follow up: Response: No adverse reaction lp1 02:50 Drug: Lasix 40 mg {Note: bp 164/69.} Route: IVP; Site: left forearm; lp1 03:42 Follow up: Response: No adverse reaction lp1 Disposition: 09/30/18 00:38 Hospitalization ordered by Brandee Leo for Observation. Preliminary diagnosis are Chest pain, unspecified, Essential (primary) hypertension, Anemia, unspecified, Unspecified kidney failure, Cardiomegaly. - Bed requested for Telemetry/MedSurg (observation). - Status is Observation. lp1 - Condition is Fair. - Problem is new. - Symptoms have improved. UTI on Admission? No Signatures: Dispatcher [employer] [facility] Chioma Adams RN RN kl Anderson, Corey, MD MD cha Pena, Laura, RN RN lp1 Kadeem Jarvis RN RN rr5 Corrections: (The following items were deleted from the chart) 00:40 00:32 Lipase ordered. [facility] 02:10 00:38 Hospitalization Ordered by Brandee Leo MD for Observation. Preliminary mike diagnosis is Chest pain, unspecified; Essential (primary) hypertension. Bed requested for Telemetry/MedSurg (observation). Status is Observation. Condition is Fair. Problem is new. Symptoms have improved. UTI on Admission? No. mike 02:37 02:10 09/30/2018 00:38 Hospitalization Ordered by Brandee Leo MD for Observation. kl Preliminary diagnosis is Chest pain, unspecified; Essential (primary) hypertension; Anemia, unspecified; Unspecified kidney failure; Cardiomegaly. Bed requested for Telemetry/MedSurg (observation). Status is Observation. Condition is Fair. Problem is new. Symptoms have improved. UTI on Admission? No. mike 03:49 02:37 09/30/2018 00:38 Hospitalization Ordered by Brandee Leo MD for Observation. lp1 Preliminary diagnosis is Chest pain, unspecified; Essential (primary) hypertension; Anemia, unspecified; Unspecified kidney failure; Cardiomegaly. Bed requested for Telemetry/MedSurg (observation). Status is Observation. Condition is Fair. Problem is new. Symptoms have improved. UTI on Admission? No. kl
[2018-09-30 00:48] LABS: ALT/SGPT 17 U/L (12-78); AST/SGOT 21 U/L (15-37); Alkaline Phosphatase 136 U/L (45-117); BUN Blood Urea Nitrogen 59 mg/dL (7-18); Bicarbonate 22 mmol/L (21-32); Bilirubin Direct < 0.1 mg/dL (0-0.2); Bilirubin Total 0.2 mg/dL (0.2-1.0); Glucose Level 116 mg/dL (74-106); Lipase 230 U/L (73-393); NT PRO-BNP 11872 pg/mL (<125); Protein, Total 6.1 g/dL (6.4-8.2); Sodium Level 145 mmol/L (136-145)
[2018-09-30] MEDS ORDERED: FAMOTIDINE 20 MG/2 ML VIAL IV ONE (00:51)
[2018-09-30] MEDS ORDERED: ENOXAPARIN 80 MG/0.8 ML SQ ONE (00:51)
[2018-09-30] MEDS ORDERED: NA CHLORIDE 0.9% 1,000 ML ONE (00:52)
[2018-09-30 00:53] LABS: Troponin (Emerg Dept Use Only) 0.55 ng/mL (0.0-0.045)
[2018-09-30 01:20] LABS: Blood Morphology Comment NOT SEEN (NOT SEEN); Platelet Estimate DECR; Urine White Blood Cell Casts OK
[2018-09-30 01:57] LABS: Urine Blood 1+ (NEG); Urine Glucose TRACE (NEG); Urine Protein 3+ (NEG); Urine Specific Gravity >1.030 (1.005-1.030)
[2018-09-30] MEDS ORDERED: ONDANSETRON 4 MG/2 ML VIAL ONE (02:27)
[2018-09-30] MEDS ORDERED: MORPHINE 4 MG/ML SYR ONE (02:27)
--- NOTE | 2018-09-30 02:31 | P.HP ---
Certification for Inpatient Patient admitted to: Observation With expected LOS: <2 Midnights Practitioner: I am a practitioner with admitting privileges, knowledge of patient current condition, hospital course, and medical plan of care. Services: Services provided to patient in accordance with Admission requirements found in Title 42 Section 412.3 of the Code of Federal Regulations Patient History Date of Service: 09/30/18 Reason for admission: Chest pain History of Present Illness: Ms Haywood is a 67-year-old woman with history of Coronary artery Disease status post CABG, porcine aortic valve replacement, chronic kidney disease process to start dialysis, who was admitted 5 days ago to this hospital due to chest pain. She was evaluated by Cardiology team who did not recommend to do a cath due to increasing risk to compromise more her kidney function. She supposed to follow up next week for outpatient stress test. However today she had several episode of chest pain, described as pressure-like, located on the side of chest pain radiated to left arm and neck. Intensity 7/10 associated with nausea and shortness of breath. She took nitro which made it pain better. Troponin I elevated 0.55, EKG shows narrow right bundle branch block compared with the last one. Allergies No Known Drug Allergies Allergy (Verified 11/01/16 17:19) Unknown Home medications list reviewed: Yes Home Medications: Atorvastatin Calcium [Lipitor] 20 mg PO DAILY 11/01/16 Cholecalciferol (Vitamin D3) [Vitamin D3] 2,000 unit PO DAILY 11/01/16 Hydroxychloroquine Sulfate 200 mg PO DAILY 11/01/16 Metoprolol Tartrate [Lopressor*] 50 mg PO BID 11/01/16 Sertraline HCl 75 mg PO DAILY 11/01/16 Calcitrol [Rocaltrol*] 0.25 mcg PO DAILY 09/24/18 Diltiazem HCl [Cartia Xt] 180 mg PO DAILY 09/24/18 Doxazosin Mesylate [Cardura] 2 mg PO BID 09/24/18 Nitroglycerin 0.4 mg SL SEECOM #20 tab.subl 09/26/18 Pantoprazole [Protonix Tab*] 40 mg PO BIDAC #20 tab 09/26/18 - Past Medical/Surgical History Diabetic: No -: Hypertension -: Aortic valve replacement -: Coronary artery disease, CABG x1 vessel -: Lupus -: Chronic renal disease -: Anemia of chronic disease -: Depression -: Aortic valve replacement -: CABG x1 vessel -: Breast biopsies -: D/C Psychosocial/ Personal History: The patient is . She has children. She does not work. - Family History Mother -: Other (see notes) (Dayami Gehrig's disease) Father -: Heart disease, Diabetes - Social History Smoking Status: Never smoker Alcohol use: Yes CD- Drugs: No Caffeine use: Yes Place of Residence: Home Review of Systems 10-point ROS is otherwise unremarkable Physical Examination - Physical Exam General: Alert, In no apparent distress HEENT: Atraumatic, PERRLA, Mucous membr. moist/pink, EOMI, Sclerae nonicteric Neck: Supple, 2+ carotid pulse no bruit, No LAD, Without JVD or thyroid abnormality Respiratory: Clear to auscultation bilaterally, Normal air movement Cardiovascular: Regular rate/rhythm, Normal S1 S2 Gastrointestinal: Normal bowel sounds, No tenderness Musculoskeletal: No tenderness Integumentary: No rashes Neurological: Normal speech, Normal strength at 5/5 x4 extr, Normal tone, Normal affect Lymphatics: No axilla or inguinal lymphadenopathy - Studies Laboratory Data (last 24 hrs) 09/30/18 00:31: Lipase Cancelled 09/29/18 23:59: PT 11.3, INR 0.96 09/29/18 23:59: WBC 5.1 D, Hgb 8.6 L, Hct 25.6 L, Plt Count 96 L 09/29/18 23:59: Sodium 145, Potassium 5.0, BUN 59 H, Creatinine 4.80 H, Glucose 116 H, Magnesium 2.0, Total Bilirubin 0.2, AST 21, ALT 17, Alkaline Phosphatase 136 H, Lipase 230 Assessment and Plan - Problems (Diagnosis) (1) CKD (chronic kidney disease), stage V Onset Date: 09/26/18 Current Visit: No Status: Acute (2) Chest pain Onset Date: 09/26/18 Current Visit: No Status: Acute Qualifiers: Chest pain type: precordial pain Qualified Code(s): R07.2 - Precordial pain (3) Coronary artery disease Onset Date: 11/02/16 Current Visit: No Status: Chronic Qualifiers: Coronary Disease-Associated Artery/Lesion type: bypass graft [place] vs. transplanted heart: unspecified whether [place] or transplanted heart Associated angina: with unstable angina Qualified Code(s): I25.700 - Atherosclerosis of coronary artery bypass graft(s), unspecified, with unstable angina pectoris (4) H/O aortic valve replacement Current Visit: No Status: Chronic (5) Hypertension Onset Date: 11/02/16 Current Visit: No Status: Chronic Qualifiers: Hypertension type: essential hypertension Qualified Code(s): I10 - Essential (primary) hypertension (6) Lupus Onset Date: 11/02/16 Current Visit: No Status: Chronic Qualifiers: Systemic lupus erythematosus type: unspecified Systemic lupus erythematosus organ involvement: unspecified Qualified Code(s): M32.9 - Systemic lupus erythematosus, unspecified - Plan The patient will be admitted to the hospital due to chest pain with elevated troponin I and EKG changes. Despite she has stage 5 chronic kidney disease, I believe the troponin I represent cardiac ischemia for her clinical presentation. Will order aspirin, Lovenox, statins, beta-blockers and cardiology consult. - Advance Directives Does patient have a Living Will: No Does patient have a Durable POA for Healthcare: No - Code Status/Comfort Care Code Status Assessed: Yes Code Status: Full Code
[2018-09-30] MEDS ORDERED: FUROSEMIDE 40 MG/4 ML VIAL ONE (02:50)
[2018-09-30] MEDS ORDERED: ACETAMINOPHEN 500 MG TAB PO PRN (04:01)
[2018-09-30] MEDS ORDERED: ONDANSETRON 4 MG/2 ML VIAL IV PRN (04:01)
[2018-09-30 04:18] VITALS: BMI 28.3
--- NOTE | 2018-09-30 07:05 | EKG ---
Test Date: 2018-09-29 Test Time: 23:44:24 Technician Automatic: CHANDAN MEASUREMENT RESULTS: Intervals: Rate: 59 AL: 194 QRSD: 168 QT: 504 QTc: 498 Grover: P: 57 AL: 194 QRS: -50 T: 72 INTERPRETIVE STATEMENTS: Sinus bradycardia Right bundle branch block Left axis Abnormal ECG Compared to ECG 09/24/2018 14:57:28 Right bundle-branch block now present Electronically Signed On 09-30-18 07:04:55 [employer]COMM[employer]ICATION[employer] LINESWORK[employer] by Jong Cooper
--- NOTE | 2018-09-30 08:19 | RAD REPORT ---
EXAM DESCRIPTION: RAD - Chest Single View - 09/30/2018 12:07 am CLINICAL HISTORY: CHEST PAIN Chest pain. COMPARISON: Chest Single View dated 09/24/2018; Chest Single View dated 11/01/2016; CHEST SINGLE VIE W dated 01/14/2015; CHEST PA AND LAT 2 VIEW dated 02/24/2013; Chest Abd Pelvis Wo Con dated 09/24/2018 FINDINGS: Portable technique limits examination quality. The lungs are grossly clear. The heart is mildly enlarged in size with sternotomy wires present. No d isplaced fractures. IMPRESSION: No acute intrathoracic process suspected.
[2018-09-30] MEDS ORDERED: ATORVASTATIN 40 MG TAB PO SCH (09:00)
[2018-09-30] MEDS ORDERED: PNEUMOCOCCAL VACCINE 0.5 ML IMVAC ONE (09:00)
[2018-09-30] MEDS ORDERED: COLCHICINE 0.6 MG TAB PO PRN (09:47)
[2018-09-30] MEDS: METOPROLOL TAR 50 MG TAB PO SCH ×2 (09:53→22:39)
[2018-09-30] MEDS ORDERED: NITROGLYCERIN 0.4 MG/TAB SL PRN (12:00)
--- NOTE | 2018-09-30 13:31 | CON ---
Chief Complaint: Chest pain. History Of Present Illness: Mrs. Haywood has pain that feels like needles sticking in the left upper part of her chest. It comes and goes. She took a nitroglycerin. It did not help. It resolved on i ts own. Since being in the hospital, her troponins are noted to be abnormal. Her troponins have all been in the same range. They are 0.55 and 0.82. If we look her troponins over the last several wed ths, they have all been very similar to this. In 2016, they were 0.04. She has renal insufficiency, and we attribute the troponin elevation to that, not to an acute coronary syndrome. She has a biopr osthetic aortic valve. She had a 1-vessel bypass. It was for a 50% lesion. She is not having any c hest pain that sounds remotely like angina. She is under a lot of emotional distress at home with il lness of her and worsening health problems, especially her worsening renal function. We have done stress tests and ultrasounds recently. They have all indicated myocardial perfusion is normal, so at this point, I would recommend we try colchicine to see if that relieves the pain. If it does not, we can keep her over the weekend, do a heart catheterization to see exactly what we are dealing with. Although doing a heart catheterization would, no doubt, put her in situation where she would h ave to start dialysis sooner rather than later, so we would like to avoid it. Before we do a heart c atheterization, we are going to try colchicine. JIN/HECTOR Voice ID: [id number] Report ID: [id number]
--- NOTE | 2018-09-30 17:08 | PN ---
Date of Progress Note: 09/30/2018 Subjective: The patient is seen and examined. Chart reviewed, and case discussed with RN and Dr. Atul rao. The patient states that her chest pain is better. Review of Systems: Negative except as above. Medications: List reviewed. Code Status: Full. Physical Examination: Vital Signs: Temperature 97, heart rate 63, blood pressure 127/67, respirations 18, O2 of 97% on paulina m air. General: Awake, alert, oriented x3. An elderly female, ill-appearing. CV: S1, S2. Peripheral pulses present. Regular rate and rhythm. Respiratory: Clear to auscultation bilaterally. No wheezing or stridor. No use of accessory muscle s. Gastrointestinal: Abdomen is soft, nontender, nondistended. Positive bowel sounds. Extremities: No clubbing, cyanosis, or edema. Neuro: Nonfocal. Laboratory Data: Troponin 0.55, 0.82. Triglycerides 115, cholesterol 139, LDL 71, HDL 45. Assessment: 1.Unstable angina. The patient has history of coronary artery bypass graft, having recurrent episod es of chest pain, was here recently. The patient is on chest pain guidelines with aspirin, statin, b eta max, full-dose Lovenox renally dosed. Appreciate Dr. Cooper' input. Likely represents non-S T-elevation myocardial infarction. 2.Chronic kidney disease stage 5. The patient is in the process of being initiated with peritoneal dialysis. Sees [place] support worker at [facility]. 3.Coronary artery disease, picayune artery and picayune heart, status post bypass graft, with angina pec toris. 4.History of aortic valve replacement, porcine valve. 5.Essential hypertension. Resume home medications. Stable. 6.Systemic lupus erythematosus, stable. 7.Normocytic normochromic anemia, likely anemia of chronic disease. 8.Major depressive disorder, on SSRI, in remission. Plan: Continue treatment for chest pain. Follow up with Cardiology recommendation. Likely discharg e in the next 24 to 48 hours. We will consult Nephrology on-call. /HECTOR Voice ID: [id number] Report ID: [id number]
[2018-09-30] MEDS: PANTOPRAZOLE 40MG TABLET PO SCH (17:42)
[2018-09-30] MEDS ORDERED: ATORVASTATIN 20 MG TAB PO SCH (21:00)
[2018-09-30] MEDS ORDERED: ENOXAPARIN 80 MG/0.8 ML SQ SCH (21:00)
--- NOTE | 2018-09-30 21:20 | P.CNS ---
Date of Consult: 09/30/18 Reason for Consult: CKD V Requesting Physician: Marcelo Simms Chief Complaint: Chest pain History of Present Illness: Ms Haywood is a 67-year-old woman with history of Coronary artery Disease status post CABG, porcine aortic valve replacement, chronic kidney disease process to start dialysis, who was admitted 5 days ago to this hospital due to chest pain. She was evaluated by Cardiology team who did not recommend to do a cath due to increasing risk to compromise more her kidney function. She supposed to follow up next week for outpatient stress test. However today she had several episode of chest pain, described as pressure-like, located on the side of chest pain radiated to left arm and neck. Intensity 7/10 associated with nausea and shortness of breath. She took nitro which made it pain better. Troponin I elevated 0.55, EKG shows narrow right bundle branch block compared with the last one. 00:31 This 67 yrs old Female presents to ER via EMS with complaints of Chest Pain. mike 00:31 The patient or guardian reports chest pain that is located primarily in the substernal mike area. Onset: 2 day(s) ago. The pain does not radiate. Associated signs and symptoms: The patient has no apparent associated signs or symptoms. The chest pain is described as a pressure. Modifying factors: The symptoms are alleviated by nothing. the symptoms are aggravated by nothing. Severity of pain: At its worst the pain was mild moderate in the emergency department the pain is unchanged. The patient has experienced similar episodes in the past, several times. Allergies No Known Drug Allergies Allergy (Verified 11/01/16 17:19) Unknown Home medications list reviewed: Yes Home Medications: Cholecalciferol (Vitamin D3) [Vitamin D3] 2,000 unit PO DAILY 11/01/16 Hydroxychloroquine Sulfate 200 mg PO DAILY 11/01/16 Metoprolol Tartrate [Lopressor*] 50 mg PO BID 11/01/16 Sertraline HCl 75 mg PO DAILY 11/01/16 Calcitrol [Rocaltrol*] 0.25 mcg PO DAILY 09/24/18 Diltiazem HCl [Cartia Xt] 180 mg PO DAILY 09/24/18 Doxazosin Mesylate [Cardura] 2 mg PO BID 09/24/18 Nitroglycerin 0.4 mg SL SEECOM #20 tab.subl 09/26/18 Pantoprazole [Protonix Tab*] 40 mg PO BIDAC #20 tab 09/26/18 Aspirin [Adult Aspirin] 81 mg PO DAILY 09/30/18 Atorvastatin Calcium [Lipitor*] 20 mg PO DAILY 09/30/18 - Past Medical/Surgical History Diabetic: No -: Hypertension -: Aortic valve replacement -: Coronary artery disease, CABG x1 vessel -: Lupus -: Chronic renal disease -: Anemia of chronic disease -: Depression -: Aortic valve replacement -: CABG x1 vessel -: Breast biopsies -: D/C Psychosocial/ Personal History: The patient is . She has children. She does not work. - Family History Mother Medical History: Other (see notes) Father Medical History: Heart disease, Diabetes - Social History Smoking Status: Never smoker Alcohol use: No CD- Drugs: No Caffeine use: Yes Place of Residence: Home Review of Systems 10-point ROS is otherwise unremarkable General: Weakness, Malaise Respiratory: SOB with Excertion Cardiovascular: Chest Pain, Edema Physical Examination Temp Pulse Resp BP Pulse Ox 97.9 F 64 18 183/78 H 99 09/30/18 16:00 09/30/18 16:00 09/30/18 16:00 09/30/18 16:00 09/30/18 16:00 General: Oriented x3, Cooperative HEENT: Atraumatic, Mucous membr. moist/pink Neck: Supple Respiratory: Clear to auscultation bilaterally Cardiovascular: Regular rate/rhythm, Edema Gastrointestinal: Soft and benign, Non-distended Musculoskeletal: No clubbing, No contractures Integumentary: No rashes, No cyanosis Neurological: Normal speech Laboratory Data (last 24 hrs) 09/30/18 00:31: Lipase Cancelled 09/29/18 23:59: PT 11.3, INR 0.96 09/29/18 23:59: WBC 5.1 D, Hgb 8.6 L, Hct 25.6 L, Plt Count 96 L 09/29/18 23:59: Sodium 145, Potassium 5.0, BUN 59 H, Creatinine 4.80 H, Glucose 116 H, Magnesium 2.0, Total Bilirubin 0.2, AST 21, ALT 17, Alkaline Phosphatase 136 H, Lipase 230 Imagings Data: EXAM DESCRIPTION: RAD - Chest Single View - 09/30/2018 12:07 am CLINICAL HISTORY: CHEST PAIN Chest pain. COMPARISON: Chest Single View dated 09/24/2018; Chest Single View dated 2015; CHEST SINGLE VIEW dated 01/14/2015; CHEST PA AND LAT 2 VIEW dated 02/24/2013 ; Chest Abd Pelvis Wo Con dated 09/24/2018 FINDINGS: Portable technique limits examination quality. The lungs are grossly clear. The heart is mildly enlarged in size with sternotomy wires present. No displaced fractures. IMPRESSION: No acute intrathoracic process suspected. HEIGHT: 5 ft 6 in WEIGHT: 167 lb 0 oz DATE OF STUDY: 11/02/[address]: Lali Whitman FRUIT DUMPER-BC 2-DIMENSIONAL: YES M.MODE: YES DOPPLER: YES COLOR FLOW: YES TDS: PORTABLE: DEFINITY: BUBBLE STUDY: DIAGNOSIS: CONGESTIVE HEART FAILURE/ RECENT VALVE REPLACEMENT CARDIAC HISTORY: CATHERIZATION: SURGERY: YES PROSTHETIC VALVE: AVR PACEMAKER: MEASUREMENTS (cm) DIASTOLIC (NORMALS) SYSTOLIC (NORMALS) IVSd 1.2 (0.6-1.2) LA Diam (1.9-4.0) LVEF 55% LVIDd 4.3 (3.5-5.7) LVIDs 3.1 (2.0-3.5) %FS 28% LVPWd 1.3 (0.6-1.2) Ao Diam 2.7 (2.0-3.7) 2 DIMENSIONAL ASSESSMENT: RIGHT ATRIUM: NORMAL LEFT ATRIUM: NORMAL RIGHT VENTRICLE: NORMAL LEFT VENTRICLE: NORMAL TRICUSPID VALVE: NORMAL MITRAL VALVE: NORMAL PULMONIC VALVE: NORMAL AORTIC VALVE: BIO-PROSTHETIC PERICARDIAL EFFUSION: NONE AORTIC ROOT: NORMAL LEFT VENTRICULAR WALL MOTION: PARADOXICAL SEPTAL MOTION DOPPLER/COLOR FLOW: NORMAL PROSTHETIC VALVE FINDING COMMENTS: NORMAL LEFT VENTRICULAR EJECTION FRACTION. PARADOXICAL SEPTAL MOTION. BIO-PROSTHETIC AORTIC VALVE WITH NORMAL APPERANCE AND NORMAL DOPPLER. Conclusions/Impression: A/ CKD V with proteinuria. Follows with Dr. Marya Hwang at [facility]. Hyperkalemia, controlled. HTN with CKD. Edema. Anemia in chronic illness. SLE. CAD with rising troponin concerning for NSTEMI. P/ Continue current POC and Medications. Start Vitamin D and Binder. Give Epo. Will reevaluate for diuresis in the am. Mucomyst as needed prior to any dye exposure. Renal diet. No NSAIDs. AM labs. Daily weight. Recommend proceeding with a cardiac cath if necessary despite CKD; will initiate dialysis as needed if the renal function worsens. Thank you kindly for the consultation.
[2018-09-30] MEDS ORDERED: EPOETIN ALFA 10,000 UNIT/ML SQ ONE (21:21)
[2018-09-30] MEDS: DOXAZOSIN 2 MG TAB PO SCH (22:38)
[2018-09-30] MEDS ORDERED: EPOETIN ALFA 10,000 UNIT/ML VIAL ONE (22:42)
[2018-09-30] MEDS: guaiFENesin 100 MG/5 ML UCUP PO PRN (23:39)
[2018-10-01] MEDS: PANTOPRAZOLE 40MG TABLET PO SCH (05:46)
[2018-10-01] MEDS: guaiFENesin 100 MG/5 ML UCUP PO PRN (05:46)
[2018-10-01 06:14] LABS: Absolute Lymphocytes (CBC) 0.9 K/uL (0.7-4.9); Absolute Monocytes 0.6 K/uL (0.1-1.3); Absolute Neutrophil 2.2 K/uL (1.8-8.0); Basophils % 0.4 % (0-1.3); Hematocrit 25.5 % (36.0-45.0); Lymphocytes % 23.5 % (15.3-44.8); MCH 30.9 pg (27.0-35.0); MCV 89.9 fL (80-100); MPV 9.4 fL (7.6-11.3); RBC Red Blood Cell Count 2.84 M/uL (3.86-4.86)
[2018-10-01 06:23] LABS: Monocytes % 16.2 % (3.3-12.3)
[2018-10-01 06:29] LABS: Albumin 2.9 g/dL (3.4-5.0); Bilirubin Total 0.3 mg/dL (0.2-1.0); CKMB Creatine Kinase MB 2.4 ng/mL (0.3-3.6); Phosphorus 4.3 mg/dL (2.5-4.9); Protein, Total 6.1 g/dL (6.4-8.2)
[2018-10-01 06:34] LABS: Urine Appearance CLEAR; Urine Bilirubin NEGATIVE (NEG); Urine Blood 1+ (NEG); Urine Color YELLOW; Urine Glucose NEGATIVE (NEG); Urine Protein 2+ (NEG); Urine Urobilinogen 0.2 mg/dL (0.2-1.0)
[2018-10-01 06:50] LABS: Urine Bacteria <20 /HPF (<20); Urine Culture Reflex Order NOT NEEDED; Urine RBC <5 /HPF (NONE SEEN)
[2018-10-01] MEDS ORDERED: SERTRALINE HCL 50 MG TAB PO SCH (09:00)
[2018-10-01] MEDS ORDERED: DILTIAZEM HCL 180 MG SR CAP PO SCH (09:00)
[2018-10-01] MEDS ORDERED: CALCITROL 0.25 MCG CAP PO SCH (09:00)
[2018-10-01] MEDS ORDERED: VITAMIN D 5,000 UNIT CAP PO SCH (09:00)
[2018-10-01] MEDS ORDERED: ASPIRIN EC 81 MG TAB PO SCH (09:00)
[2018-10-01] MEDS: DOXAZOSIN 2 MG TAB PO SCH (10:10)
[2018-10-01] MEDS: SEVELAMER CARBONATE 800 MG TABLET PO SCH ×2 (10:10→13:47)
[2018-10-01] MEDS: METOPROLOL TAR 50 MG TAB PO SCH (10:11)
[2018-10-01 12:56] VITALS: BP 173/79; TEMP 97.8
--- NOTE | 2018-10-01 13:47 | PN ---
Ms. Haywood is not having chest pain. The colchicine seems to have been a factor that made the differ ence. Her chest pain never sound at all like angina to me. It was sharp, stinging chest pain, well within the left of the sternal border. I think she may have some mild pericardial disease that does not show up on an echo. I will ask her to continue taking the colchicine for several days, then she can stop it. Resume it if the chest pain comes back. On October 18, she is supposed to see the re nal service at [facility]. She will visit with me after that. We will decide whether we think a cardiac c ath is necessary. I really do not think she has unstable angina. JIN/HECTOR Voice ID: [id number] Report ID: [id number]
[2018-10-01 14:37] VITALS: O2SAT 97
--- NOTE | 2018-10-01 16:03 | PN ---
Date of Progress Note: 10/01/2018 NEPHROLOGY PROGRESS NOTE Subjective: The patient is seen at the bedside. No overnight events reported. The patient feels we ll. Denies any fevers, chills, chest pain, shortness of breath, nausea, vomiting, or diarrhea. The patient has been cleared for discharge today. We were able to get some additional history regarding her renal disease progression. The patient has had chronic kidney disease for the past 20 years. She did have a biopsy sometime in the late s. She was under treatment for suspected lupus nephritis, but because of insurance reasons and needing t o shuffle doctors many times over the subsequent years, that she has never completed her lupus nephri tis treatment. She had progressive CKD. When she went to get second opinion at [facility], she was told t hat she had advanced chronic kidney disease with decreased kidney size and was thus told that she is at end-stage renal disease and will need peritoneal dialysis soon in the future. Biopsy was not unde rtaken given the diminished kidney size and lack of benefit of a biopsy at this point. The patient d oes follow at [facility] and is planning on peritoneal dialysis within the next month. At this point, she has no other acute complaints. Objective: Vital signs: Blood pressure is 165/80, pulse 63, temperature 98.4. Blood pressure since yesterday afternoon has been in the 180s to 170s. General: No acute distress. Heart: Regular rate, rhythm. No murmurs, rubs, gallops. Lungs: Clear to auscultation bilaterally. Abdomen: Soft, nontender, nondistended. Positive bowel sounds x4. Extremities: No significant edema. Laboratory Data: BUN/creatinine are 58/4.4, which is relatively stable compared to admission. Album in is 2.9. Current Medications: Reviewed. Impression: 1.Chronic kidney disease stage 4, progressing to end-stage renal disease. 2.Hypertension. 3.Anemia of chronic kidney disease. 4.Renal mineral bone disorder. Plan: Renal function although compromised is stable. The patient if to be discharged today is to av oid all NSAIDs, avoid contrast, and to follow a renal diet. The patient's hypertension is uncontroll ed at this time. The patient's doxazosin will be increased to 4 mg p.o. b.i.d. Anemia will require BERNARD management and that will be managed in the outpatient setting as the patient is asymptomatic. Th e patient has been started on phosphorus binder by Dr. Underwood. We will continue to follow as needed . FELY Voice ID: [id number] Report ID: [id number]
--- NOTE | 2018-10-02 06:25 | DS ---
Date of Discharge: 10/01/2018 Consultants: Dr. Cooper with Cardiology, Dr. Underwood with Nephrology. Admitting Diagnoses: 1. Chest pain. 2. Chronic kidney disease, stage 4. 3. Coronary artery disease, [place] artery and [place] heart, status post bypass graft. 4. History of aortic valve replacement, porcine. 5. Essential hypertension. 6. Systemic lupus erythematosus. Discharge Diagnoses: 1. Chest pain. No non-ST segment elevation myocardial infarction. 2. Chronic kidney disease, stage 5. 3. Coronary artery disease, [place] artery and [place] heart, status post bypass graft without angina. 4. History of aortic valve replacement, porcine valve. 5. Essential hypertension. 6. Normocytic, normochromic anemia, anemia of chronic disease. 7. Major depressive disorder, on SSRI. Hospital Course: The patient is a 67-year-old female, who was recently discharged from the hospital for chest pain. She comes back again with pleuritic-type chest pain. The patient did not have any relief with nitroglycerin. Her workup showed elevated troponin levels. Cardiology was consulted. She was started on chest pain guidelines. This was not felt to be due to NSTEMI, as the patient has had recent workup including stress test, ultrasound, and does have history of 50% blockage that was bypassed with 1 vessel. She also has a bioprosthetic aortic valve. Troponin elevation was felt to be due to her renal insufficiency. No plans for catheterization at this time, especially in light of her kidney problems. The patient was then given trial of colchicine. The patient was seen by Dr. Underwood, Nephrology on- call. The patient usually sees orthopaedic surgeon at [facility] and is in the process of being worked up for peritoneal dialysis. The patient otherwise did well. She did have some relief with the colchicine medication. Her troponin levels came up to 1.1 and then trended down to 0.65. She has been asymptomatic. Not having any further chest pain. The patient was then cleared for discharge from organizational research consultant's standpoint. She was sent home in a stable condition. Activity: As tolerated. Medications: As per medication reconciliation list. Followup: Follow up with primary care physician in 2 to 3 days. Follow up with visual communications instructor, Dr. Cooper, in 1 to 2 weeks. Follow up with orthopaedic surgeon, Dr. Hwang, at [facility] in 2 weeks. Return to ER for worsening condition. Diet: Renal. Physical Examination: General: Awake, alert, oriented x3, not in any acute distress. Elderly female. CV: S1, S2. Distal pulses present. Respiratory: Moving air well bilaterally. Abdomen: Soft, nontender, nondistended. Positive bowel sounds. Extremities: No clubbing, cyanosis, or edema. Neurologic: Nonfocal. SA/MODL Voice ID: [id number] Report ID: [id number] [facility]
[2018-10-05 20:08] LABS: HBsAG Nonreactive (Nonreactive)
== END 2018-10-01 14:09 | disposition home or self-care (01) ==
LOC: ER 23:33 → ERHOLD 09-30 00:45 → 2ND 09-30 03:42
PROVIDERS: ADMIT Internal Medicine; ATTEND Internal Medicine
DX: R07.89 Other chest pain (principal); I12.0 Hypertensive chronic kidney disease with stage 5 chronic kidney disease or end stage renal disease; N18.5 Chronic kidney disease, stage 5; D63.1 Anemia in chronic kidney disease; M32.9 Systemic lupus erythematosus, unspecified; I25.10 Atherosclerotic heart disease of native coronary artery without angina pectoris; F32.9 Major depressive disorder, single episode, unspecified; Z23 Encounter for immunization; Z95.2 Presence of prosthetic heart valve; Z95.1 Presence of aortocoronary bypass graft
CPT/HCPCS: 36415 ×2; 71045; 80048; 80053; 80061; 80076; 81001; 81003; 82553; 83690; 83735; 83880; 84100; 84484 ×4; 84550; 85025 ×2; 85610; 86704; 86706; 86803; 86850; 86900; 86901; 87086; 87088; 87340; 90670; 93005; 96372; 96374; 96375; 99285; G0009; G0378 ×2; J1650 ×2; J1940; J2405; J7030; Q4081; J0885

== ENCOUNTER 2018-11-05 12:12 | Inpatient (IN) | payer OTHER ==
--- OUTSIDE RECORDS SUMMARY | 2018-11-05 12:15 | XMS REPORT | Clinical Summary ---
:[address] [facility] Address [address] [place] [address] Care Team Providers Name Role Phone Unavailable Primary Care Provider Unavailable Allergies Not on File Medications Not on file Active Problems Not on file Encounters Date Type Specialty Care Team Description 10/25/2018 Abstract Transplant Calire Dwyer 10/20/2018 Abstract Transplant Claire Dwyer after 11/04/2017 Social History Tobacco Use Types Packs/Day Years Used Date Never Assessed Sex Assigned at Date Recorded Not on file Job Start Date Occupation Industry Not on file Not on file Not on file Travel History Travel Start Travel End No recent travel history available. Last Filed Vital Signs Vital Sign Reading Time Taken Blood Pressure - - Pulse - - Temperature - - Respiratory Rate - - Oxygen Saturation - - Inhaled Oxygen Concentration - - Weight 77.1 kg (170 lb) 10/20/2018 12:56 PM [employer]IOR [employer] Height 167.6 cm (5' 6") 10/20/2018 12:56 PM [employer]IOR [employer]EL[employer] Body Mass Index 27.44 10/20/2018 12:56 PM [employer]IOR [employer] DEVELOPER Plan of Treatment Date Type Specialty Care Team Description 11/30/2018 Office Visit Transplant 11/30/2018 Orders Only Transplant Hepatology 11/30/2018 Evaluation Transplant Camden Fonseca MD [address] [facility] [address] [place] [address] Results Not on fileafter 11/04/2017 Insurance Payer Benefit Plan / Group Subscriber ID Type Phone Address MEDICARE MEDICARE A B xxxxxxxxxx Medicare (Home) [place] [address]
--- OUTSIDE RECORDS SUMMARY | 2018-11-05 12:15 | XMS REPORT | Clinical Summary ---
:1950 Author Organization [facility] Address [address] [place] [address] Care Team Providers Name Role Phone Nghia Jones MD Primary Care Provider Allergies No Known Allergies Medications Medication Sig Dispensed Refills Start Date End Date Status metoprolol tartrate Take 50 mg by 0 Active (LOPRESSOR) 50 mg tablet mouth 2 (two) times a day. doxazosin (CARDURA) 2 MG Take 2 mg by 0 Active tablet mouth 2 (two) times a day. diltiazem CD (CARTIA XT) Take 180 mg by 0 Active 180 MG 24 hr capsule mouth daily. hydroxychloroquine Take 200 mg by 0 Active (PLAQUENIL) 200 mg tablet mouth daily. sertraline (ZOLOFT) 50 MG Take 50 mg by 0 Active tablet mouth daily. 1 1/2 tab daily atorvastatin (LIPITOR) 40 Take 40 mg by 0 Active MG tablet mouth daily. 1/2 tab calcitriol (ROCALTROL) Take 0.25 mcg 0 Active 0.25 MCG capsule by mouth daily. fluticasone (FLONASE) 50 1 spray by Each 0 Active mcg/actuation nasal spray Nare route as needed for rhinitis. cycloSPORINE 0.05 % drops Apply 1 drop to 0 Active eye as needed. Both eyes ue-4-cqt-epa-fish oil-vit Take 2 capsules 0 Active D3 (FISH OIL-VIT D3) by mouth daily. 300-1,000-1,000 mg-mg-unit capsule Active Problems Problem Noted Date Lupus 09/23/2018 Encounters Date Type Specialty Care Team Description 10/31/2018 Documentation Transplant Rocio Liriano Consent Forms ( Scanned Consent For Kidney Transplant Evaluation, Pre Txp Education & IWONA forms in Media. 10-27-2018) 10/31/2018 Telephone Transplant Eleni Hartley Appointment 10/27/2018 Hospital Encounter Transplant Melchor Ornelas MD ESRD (end stage renal disease) (HCC) 10/27/2018 Hospital Encounter Transplant Lexis Fernandes MD ESRD (end stage renal disease) ([facility]) (Primary Dx) 10/27/2018 Hospital Encounter Transplant Lexis Fernandes MD 10/27/2018 Hospital Encounter Transplant Lexis Fernandes MD 10/27/2018 Orders Only Transplant Nghia Cordova RN ESRD (end stage renal disease) ([facility]) (Primary Dx) 10/12/2018 Documentation Transplant Ciera Espinal 09/21/2018 Telephone Transplant Naima Kim MA Pre-emptive Kidney Patient after 11/04/2017 Social History Tobacco Use Types Packs/Day Years Used Date Never Smoker Smokeless Tobacco: Never Used Sex Assigned at Date Recorded Not on file Job Start Date Occupation Industry Not on file Not on file Not on file Travel History Travel Start Travel End No recent travel history available. Last Filed Vital Signs Vital Sign Reading Time Taken Blood Pressure 136/65 10/27/2018 7:33 AM [employer] Pulse 64 10/27/2018 7:33 AM [employer] Temperature 35.8 C (96.4 F) 10/27/2018 7:31 AM [employer] Respiratory Rate 16 10/27/2018 7:33 AM [employer] Oxygen Saturation 94% 10/27/2018 7:33 AM [employer] Inhaled Oxygen Concentration - - Weight 79.9 kg (176 lb 1.6 oz) 10/27/2018 7:31 AM [employer] Height 167.6 cm (5' 6") 10/27/2018 7:31 AM [employer] Body Mass Index 28.42 10/27/2018 7:31 AM [employer] Plan of Treatment Date Type Specialty Care Team Description 11/09/2018 Appointment Procedural Cardiology Lexis Fernandes MD [address] [facility] [address] [place] [address] 11/09/2018 Appointment Transplant Min Richardson MD [address] [facility] [address] [place] [address] Ruel Bhat 11/09/2018 Appointment Transplant Min Richardson MD [address] [facility] [address] [place] [address] [phone] 11/09/2018 Appointment Transplant Min Richardson MD [address] [facility] [address] [place] [address] [phone] 11/09/2018 Appointment Radiology Lexis Fernandes MD [address] [facility] [address] [place] [address] [phone] 11/09/2018 Appointment Radiology Lexis Fernandes MD [address] [facility] [address] [place] [address] [phone] 11/09/2018 Appointment Transplant Lexis Fernandes MD [address] [place] [address] [place] [address] [phone] 11/10/2018 Appointment Transplant Melchor Ornelas MD [address] [facility] [address] [place] [address] [phone] Health Maintenance Due Date Last Done Comments BREAST CANCER SCREENING 2001 COLON CANCER SCREENING 2001 SHINGLES VACCINES (1 of 2) 2001 PNEUMOCOCCAL POLYSACCHARIDE VACCINE AGE 65 AND OVER 2016 PNEUMOCOCCAL-13 2016 INFLUENZA VACCINE 06/15/2018 Procedures Procedure Name Priority Date/Time Associated Comments Diagnosis ESTIMATED GFR Routine 10/27/2018 11:15 Results for this AM [employer] procedure are in the results section. SERUM ELECTROPHORESIS Routine 10/27/2018 11:15 ESRD (end stage Results for this AM [employer] renal disease) procedure are in ([facility]) the results section. C-PEPTIDE Routine 10/27/2018 11:15 ESRD (end stage Results for this AM [employer] renal disease) procedure are in ([facility]) the results section. TB T-SPOT Routine 10/27/2018 11:15 ESRD (end stage Results for this AM [employer] renal disease) procedure are in ([facility]) the results section. NICOTINE AND Routine 10/27/2018 11:15 ESRD (end stage Results for this METABOLITES, SERUM AM [employer] renal disease) procedure are in ([facility]) the results section. URINE DRUGS OF ABUSE Routine 10/27/2018 11:15 ESRD (end stage Results for this SCREEN AM [employer] renal disease) procedure are in (HCC) the results section. ABORH - TRANSPLANT Routine 10/27/2018 11:15 ESRD (end stage Results for this AM [employer] renal disease) procedure are in ([facility]) the results section. PARTIAL THROMBOPLASTIN Routine 10/27/2018 11:15 ESRD (end stage Results for this TIME (PTT) AM [employer] renal disease) procedure are in ([facility]) the results section. PROTHROMBIN TIME WITH Routine 10/27/2018 11:15 ESRD (end stage Results for this INR AM [employer] renal disease) procedure are in (HCC) the results section. HC COMPLETE BLD COUNT Routine 10/27/2018 11:15 ESRD (end stage Results for this W/AUTO DIFF AM [employer] renal disease) procedure are in (HCC) the results section. SYPHILIS TREPONEMAL IGG Routine 10/27/2018 11:15 ESRD (end stage Results for this AM [employer] renal disease) procedure are in ([facility]) the results section. HEPATITIS C ANTIBODY Routine 10/27/2018 11:15 ESRD (end stage Results for this AM [employer] renal disease) procedure are in ([facility]) the results section. HEPATITIS B SURFACE AB, Routine 10/27/2018 11:15 ESRD (end stage Results for this QUANTITATIVE AM [employer] renal disease) procedure are in ([facility]) the results section. HEPATITIS B SURFACE Routine 10/27/2018 11:15 ESRD (end stage Results for this ANTIGEN AM [employer] renal disease) procedure are in ([facility]) the results section. HEPATITIS B SURFACE Routine 10/27/2018 11:15 ESRD (end stage Results for this ANTIBODY AM [employer] renal disease) procedure are in ([facility]) the results section. HEPATITIS B CORE Routine 10/27/2018 11:15 ESRD (end stage Results for this ANTIBODY TOTAL AM [employer] renal disease) procedure are in ([facility]) the results section. HEPATITIS A ANTIBODY Routine 10/27/2018 11:15 ESRD (end stage Results for this TOTAL AM [employer] renal disease) procedure are in ([facility]) the results section. HIV AG/AB COMBINATION Routine 10/27/2018 11:15 ESRD (end stage Results for this AM [employer] renal disease) procedure are in ([facility]) the results section. URINALYSIS SCREEN AND Routine 10/27/2018 11:15 ESRD (end stage Results for this MICROSCOPY, WITH REFLEX AM [employer] renal disease) procedure are in TO CULTURE ([facility]) the results section. COMPREHENSIVE METABOLIC Routine 10/27/2018 11:15 ESRD (end stage Results for this PANEL AM [employer] renal disease) procedure are in ([facility]) the results section. URINE CULTURE Routine 10/27/2018 11:15 Results for this AM [employer] procedure are in the results section. after 11/04/2017 Results Syphilis treponemal IgG (10/27/2018 11:15 AM [employer]) Syphilis treponemal IgG Non-reactiveComment: Non-reactive [facility] Non-reactive: No HOSPITAL serological evidence of Syphilis infection Specimen Serum Performing Organization Address City/[facility] Phone Number [facility] DEPARTMENT OF PATHOLOGY AND [address] [place] [phone] [place] [phone] Urinalysis screen and microscopy, with reflex to culture (10/27/2018 11:15 AM [employer]) Specimen site Clean catch [facility] Color, UA Straw [facility] Appearance, UA Clear [facility] Specific gravity, UA 1.011 1.001 - 1.035 [facility] pH, UA 7.0 5.0 - 8.5 [facility] Protein, UA 3+ (A) Negative [facility] Glucose, UA 1+ (A) Negative [facility] Ketones, UA Negative Negative [facility] Bilirubin, UA Negative Negative [facility] Blood, UA Negative Negative [facility] Nitrite, UA Negative Negative [facility] Urobilinogen, UA <2.0 <2.0 [facility] Leukocyte esterase, UA Negative Negative [facility] Epithelial cells, UA <1 /HPF [facility] WBC, UA None seen 0 - 4 /HPF [facility] RBC, UA <1 0 - 5 /HPF [facility] Bacteria, UA Few None seen [facility] Yeast, UA None seen [facility] Yeast with pseudohyphae, UA None seen [facility] Specimen Urine Performing Organization Address City/[facility]/Zipcode Phone Number [facility] DEPARTMENT OF PATHOLOGY AND [address] [place] [address] [facility] MEDICINE [address] [address] Estimated GFR (10/27/2018 11:15 AM [employer]) Estimated GFR 12 (A) mL/min/1.73 m2 [facility] Comment: HOSPITAL CatergoryUnitsInterpretation G1 >=90 Normal or high G2 60-89Mildly decreased [id number] to moderately decreased S5r96-76Tyqearxhms to severely decreased G4 15-29Severely decreased G5 <15Kidney failure The eGFR was calculated using the Chronic Kidney Disease Epidemiology Collaboration (CKD-EPI) equation. Interpretation is based on recommendations of the National Kidney Foundation-Kidney Disease Outcomes Quality Initiative (NKF-KDOQI) published in 2014. Specimen Plasma specimen Performing Organization Address City/State/Zipcode Phone Number [facility] DEPARTMENT OF PATHOLOGY AND [address] [place] [address] HIV Ag/Ab combination (10/27/2018 11:15 AM [employer]) HIV Ag/Ab combination Non-reactive Non-reactive [facility] Specimen Blood Performing Organization Address City/[facility] Phone Number [facility] DEPARTMENT OF PATHOLOGY AND [address] [place] [address] TB T-SPOT (10/27/2018 11:15 AM [employer]) TB T-SPOT SEE NOTE [facility] Comment: T-SPOT TUBERCULOSIS Nil Control: 0 Panel A: 0 Panel B: 0 Positive Control: SAT Result:NEGATIVE NOTE: TMTC INDICATES TOO MANY SPOTS TO COUNT SAT INDICATES THE WELL WAS SATURATED RESULTS INTERPRETATION: RESULTS ARE NEGATIVE WHEN (PANEL A-NIL) OR (PANEL B-NIL) <=4 SPOTS, INCLUDING VALUES LESS THAN ZERO. RESULTS ARE POSITIVE WHEN (PANEL A-NIL) OR (PANEL B-NIL) >=8 SPOTS RESULTS ARE BORDERELINE WHEN EITHER (PANEL A-NIL) OR (PANEL B-NIL)=5,6,0R 7. THE TEST IS INVALID WHEN EITHER OF THE FOLLOWING CONDITIONS IS MET: 1.) THE NIL CONTROL HAS >10 SPOTS 2.) THE MITOGEN (POSITIVE CONTROL) HAS <20 SPOTS AND BOTH (PANEL A-NIL) AND (PANEL B-NIL) <=4 SPOTS. M. TUBERCULOSIS INFECTION UNLIKELY, BUT CANNOT BE EXCLUDED ESPECIALLY WHEN: 1. ANY ILLNESS IS CONSISTENT WITH TB DISEASE. 2. LIKELIHOOD OF PROGRESSION TO DISEASE (e.g. DUE TO IMMUNOSUPPRESSION) IS INCREASED. LIMITATIONS: DIAGNOSING OR EXCLUDING TUBERCULOSIS DISEASE, AND ASSESSING THE PROBABILITY OF LTBI, REQUIRES A COMBINATION OF EPIDEMIOLOGICAL, HISTORICAL, MEDICAL, AND DIAGNOSTIC FINDINGS THAT SHOULD BE TAKEN INTO ACCOUNT WHEN INTERPRETING T-SPOT.TB REFER TO THE MOST RECENT CDC GUIDANCE (HTTP: //WWW.CDC.GOV/NCHSTP/TB) FOR DETAILED RECOMMENDATIONS ABOUT DIAGNOSING TB INFECTION (INCLUDING DISEASE) AND SELECTING PERSONS FOR TESTING. 1.) A FALSE NEGATIVE RESULT CAN BE CAUSED BY INCORRECT BLOOD SAMPLE COLLECTION OR IMPROPER HANDLING OF THE SPECIMEN, AFFECTING LYMPHOCYTE FUNCTION 2.) THE PERFORMANCE OF T-SPOT.TB HAS NOT BEEN ADEQUATELY EVALUATED WITH SPECIMENS FROM INDIVIDUALS YOUNGER THANAGE 17 YEARS, IN WOMEN, AND IN PATIENTS WITH HEMOPHILIA. 3-) A FALSE POSITIVE RESULT WAS OBTAINED FOR T-SPOT.TB WHEN TESTED IN SUBJECTS WITH M. XENOPI, M. KANSASII, AND M. GORDONAE.WHILE ESAT-6 AND CFP-10 ANTIGENS ARE ABSENT FROM BCG STRAINS OF M. BOVIS AND FROM MOST ENVIRONMENTAL MYCOBACTERIA, IT IS POSSIBLE THAT A POSITIVE T-SPOT.TB RESULT MAY BE DUE TO INFECTION WITH M. KANSASII, M. SZULGAI, M. GORDONAE, OR M. MARINUM. ALTERNATIVE TESTS WOULD BE REQUIRED IF THESE INFECTIONS ARE SUSPECTED. 4.) A NEGATIVE TEST RESULT DOES NOT EXCLUDE THE POSSIBILITY OF EXPOSURE TO, OR INFECTION WITH, M. TUBERCULOSIS. PATIENTS WITH RECENT EXPOSURE TO TB INFECTED INDIVIDUALS EXHIBITING A NEGATIVE T-SPOT.TB RESULT SHOULD BE CONSIDERED FOR RETESTING WITHIN 6 WEEKS OR IF OTHER RELEVANT CLINICAL SYMPTOMS INDICATE POSSIBLE INFECTION. 5.) A POSITIVE TEST RESULT DOES NOT RULE IN ACTIVE TB DISEASE; OTHER TESTS SHOULD BE PERFORMED TO CONFIRM THE DIAGNOSIS OF ACTIVE TB DISEASE SUCH SPUTUM SMEAR AND CULTURE, PCR AND CHEST RADIOGRAPHY. 6.) T-SPOT.TB TEST HAS NOT BEEN EVALUATED IN SUBJECTS WHO HAVE RECEIVED >1 MONTH OF ANTI-TB THERAPY. 7. ) REFRIGERATED AND FROZEN SAMPLES ARE NOT RECOMMENDED FOR USE WITH T=SPOT.TB TEST. Performed by: [facility] Molecular Tuberculosis Laboratory [facility] ([id number]) [place], [place] [address] Specimen Blood Performing Organization Address City/State/Zipcode Phone Number [facility] DEPARTMENT OF PATHOLOGY AND [address] [place] [address] [facility] Nicotine and metabolites, serum (10/27/2018 11:15 AM [employer]) Nicotine <2.0 0.0 - 2.0 ng/mL [facility] Cotinine <2.0 0.0 - 2.0 ng/mL [facility] 0-KU-gdfewmro <5.0 0.0 - 5.0 ng/mL [facility] Comment: HOSPITAL This test was developed and its performance characteristics determined by the Department of Pathology and Genomic Medicine, [facility]. Serum nicotine and its metabolites cotinine and 9-CB-ghbmvyxm are tested by HPLC tandem mass spectrometry. It has not been cleared or approved by FDA. The laboratory is regulated under CLIA as qualified to perform high-complexity testing. This test is used for clinical purposes. It should not be regarded as investigational or for research. Specimen Blood Performing Organization Address City/State/Zipcode Phone Number [facility] DEPARTMENT OF PATHOLOGY AND [address] [place] [phone] GENOMIC MEDICINE [address] [address] Hepatitis B surface Ab, quantitative (10/27/2018 11:15 AM [employer]) Hepatitis B surface Ab <3.10 IU/L [facility] Comment: The anti-HBs is less than 10 IU/L and is therefore negative. There is no evidence of recovery from hepatitis B infection or evidence of antibody response to HBV vaccination. An anti-HBs result greater than or equal to 10 IU/L implies immunity. For post-vaccination antibody testing guidelines for the general public refer to MMWR November 06, 2005/Vol. 54(No. 16);1-23, and for healthcare workers refer to MMWR November 03, 2013/Vol. 62(No. 10);1-19. Reference Interval: anti-HBs 9.99 IU/L or less ....... Negative 10.00 IU/L or greater .... Positive Results greater than 1,000.00 IU/L are reported as greater than 1,000.00 IU/L. This assay should not be used for blood donor screening, associated re-entry protocols, or for screening Human Cell, Tissues and Cellular and Tissue-Based Products (HCT/P). Performed by [facility], [address] [place] [address], [facility] [place] [address] [email or web address], Camilo Braun MD - Lab. Director Specimen Serum Performing Organization Address City/[facility] Phone Number [facility] [address] [place] [address] [facility] [address] [place] [address] Hepatitis C antibody (10/27/2018 11:15 AM [employer]) Hepatitis C Ab Non-reactive Non-reactive [facility] Specimen Blood Performing Organization Address City/[facility] Phone Number [facility] DEPARTMENT OF PATHOLOGY AND [address] [place] [phone] Hepatitis A antibody total (10/27/2018 11:15 AM [employer]) Hepatitis A total Ab Non-reactive Non-reactive [facility] Specimen Blood Performing Organization Address City/[facility] Phone Number [facility] DEPARTMENT OF PATHOLOGY AND [address] [place] [phone] ABORh - transplant (10/27/2018 11:15 AM [employer]ER) ABO grouping O [facility] Rh type POS [facility] Specimen Blood Performing Organization Address City/[facility] Phone Number [facility] DEPARTMENT OF PATHOLOGY AND [address] [place] [phone] Hepatitis B core antibody total (10/27/2018 11:15 AM [employer]ER) Hepatitis B core total Ab Non-reactive Non-reactive [facility] Specimen Blood Performing Organization Address City/[facility] Phone Number [facility] DEPARTMENT OF PATHOLOGY AND [address] [place] [phone] C-peptide (10/27/2018 11:15 AM [employer]ER) C-peptide 8.5 (H) 1.1 - 4.4 ng/mL [facility] Specimen Plasma specimen Performing Organization Address City/[facility] Phone Number [facility] DEPARTMENT OF PATHOLOGY AND [address] [place] [phone] Urine drugs of abuse screen (10/27/2018 11:15 AM [employer]ER) Amphetamine screen, urine Negative [facility] Barbiturate screen, urine Negative [facility] Benzodiazepine screen, Negative [facility] urine [facility] Cannabinoid screen, urine Negative [facility] Cocaine screen, urine Negative [facility] Methadone metabolite Negative [facility] (EDDP), urine HOSPITAL Opiates screen, urine Negative [facility] Oxycodone screen, urine Negative [facility] Phencyclidine screen, urine Negative [facility] Tricyclic screen, urine Negative [facility] Comment: HOSPITAL Drug screen minimum concentration of detectability Obbmwmjzifcs9560 ng/mL Barbiturates 200 ng/mL Hdoplwmoakbviju721 ng/mL Fgngncn955 ng/mL Vpmohwizl387 ng/mL Rglkhyn963 ng/mL Bqnlhbksz750 ng/mL Phencyclidine 25 ng/mL Endydnkqsjnw55 ng/mL Yrlhxxuaep8054 ng/mL Negative test results indicates presumptive evidence of lack of clinically significant drug concentration in this urine specimen. Positive test results are presumptive evidence of clinically significant drug concentration in this urine specimen. Testing performed for medical purposes only. Specimen Urine Performing Organization Address City/[facility]c Phone Number [facility] DEPARTMENT OF PATHOLOGY AND [address] [place] [phone] Hepatitis B surface antibody (10/27/2018 11:15 AM [employer]ER) Hepatitis B surface Ab Non-reactive Non-reactive [facility] Specimen Blood Performing Organization Address City[facility] Phone Number [facility] DEPARTMENT OF PATHOLOGY AND [address] [place] [phone] Hepatitis B surface antigen (10/27/2018 11:15 AM [employer] COMM[employer]ER) Hepatitis B surface Ag Non-reactive Non-reactive [facility] Specimen Blood Performing Organization Address City[facility] Phone Number [facility] DEPARTMENT OF PATHOLOGY AND [address] [place] [phone] Partial thromboplastin time, activated (10/27/2018 11:15 AM [employer]ER) PTT 30.7 23.0 - 36.0 sec [facility] Comment: PTT therapeutic range for unfractionated heparin is 61.0-112.0 seconds which corresponds to Anti-Xa 0.3-0.7 U/ml. Specimen Blood Performing Organization Address City/[facility]/Zipcode Phone Number [facility] DEPARTMENT OF PATHOLOGY AND [address] [place], [place] [phone] [place] [phone] Prothrombin time with INR (10/27/2018 11:15 AM [employer]ER) Prothrombin time 14.1 11.5 - 14.5 sec [facility] INR 1.1 [facility] Comment: HOSPITAL The International Normalized Ratio (INR) is a therapeutic monitoring tool for patients who are stable on oral anticoagulant therapy. An INR of 2.0-3.0 is suggested for deep vein thrombosis/pulmonary embolism. Specimen Blood Performing Organization Address City/[facility]ode Phone Number [facility] DEPARTMENT OF PATHOLOGY AND [address] [place] [phone] [address] CBC with platelet and differential (10/27/2018 11:15 AM [employer]ER) WBC 5.04 4.50 - 11.00 k/uL [facility] RBC 3.02 (L) 4.20 - 5.50 m/uL [facility] HGB 9.0 (L) 12.0 - 16.0 g/dL [facility] HCT 28.1 (L) 37.0 - 47.0 % [facility] MCV 93.0 82.0 - 100.0 fL [facility] MCH 29.8 27.0 - 34.0 pg [facility] MCHC 32.0 31.0 - 37.0 g/dL [facility] RDW - SD 45.1 37.0 - 55.0 fL [facility] MPV 10.8 8.8 - 13.2 fL [facility] Platelet count 110 (L) 150 - 400 k/uL [facility] Nucleated RBC 0.00 /100 WBC [facility] Neutrophils 61.5 39.0 - 69.0 % [facility] Lymphocytes 23.6 (L) 25.0 - 45.0 % [facility] Monocytes 12.1 (H) 0.0 - 10.0 % [facility] Eosinophils 2.2 0.0 - 5.0 % [facility] Basophils 0.2 0.0 - 1.0 % [facility] Immature granulocytes 0.4Comment: "Immature 0.0 - 1.0 % [facility] granulocytes" [facility] (promyelocytes, myelocytes, metamyelocytes) Specimen Blood Performing Organization Address City/[facility] Phone Number [facility] DEPARTMENT OF PATHOLOGY AND [address] [place] [id number] [place] [phone] Urine culture (10/27/2018 11:15 AM PUBLIC WORKS COMMISSIONER) Urine culture SEE COMMENTComment: Bacteriuria [facility] screen negative. Performing Organization Address City/[facility]c Phone Number [facility] DEPARTMENT OF PATHOLOGY AND [address] [place] [phone] Serum electrophoresis (10/27/2018 11:15 AM PUBLIC WORKS COMMISSIONER) Protein 6.4 6.3 - 8.3 g/dL [facility] Comment: [facility] [place] 4.6-7.0 g/dL 1 week 4.4-7.6 g/dL 7 months-1year5.1-7.3 g/dL 1-2 years5.6-7.5 g/dL >3 years6.0-8.0 g/dL 18-150 6.3-8.3 g/dL SPE albumin 3.99 (L) 4.00 - 5.30 g/dL [facility] SPE alpha 1 0.18 0.10 - 0.25 g/dL [facility] SPE alpha 2 0.81 0.58 - 0.84 g/dL [facility] SPE beta 0.62 0.50 - 1.10 g/dL [facility] SPE gamma 0.80 0.60 - 1.30 g/dL [facility] SPE extended See CommentComment: An [facility] interpretation essentially normal [facility] serum protein study. SPE interpretation See CommentComment: [facility] Melchor Cotton MD; [facility] Sami Barrow, PhD; Bret Gutiérrez MD, PhD Specimen Serum Performing Organization Address City/[facility] Phone Number [facility] DEPARTMENT OF PATHOLOGY AND [address] [place] [address] [place] [address] Comprehensive metabolic panel (10/27/2018 11:15 AM PUBLIC WOR[employer] COMMISSIONER) Sodium 145 135 - 148 mEq/L [facility] Potassium 3.7 3.5 - 5.0 mEq/L [facility] Chloride 105 98 - 112 mEq/L [facility] CO2 25 24 - 31 mEq/L [facility] Anion gap 15@ANIO 7 - 15 mEq/L [facility] BUN 54 (H) 8 - 23 mg/dL [facility] Creatinine 3.73 (H) 0.50 - 0.90 mg/dL [facility] Glucose 106 (H) 65 - 99 mg/dL [facility] Calcium 9.2 8.8 - 10.2 mg/dL [facility] Protein 6.6 6.3 - 8.3 g/dL [facility] Comment: HOSPITAL 4.6-7.0 g/dL 1 week 4.4-7.6 g/dL 7 months-1year5.1-7.3 g/dL 1-2 years5.6-7.5 g/dL >3 years6.0-8.0 g/dL 18-150 6.3-8.3 g/dL Albumin 3.2 (L) 3.5 - 5.0 g/dL [facility] A/G ratio 0.9 0.7 - 3.8 [facility] Alkaline phosphatase 94 35 - 104 U/L [facility] AST 25 10 - 35 U/L [facility] ALT 11 5 - 50 U/L [facility] Total bilirubin <0.2 0.0 - 1.2 mg/dL [facility] Specimen Plasma specimen Performing Organization Address City/State/Zipcode Phone Number [facility] DEPARTMENT OF PATHOLOGY AND [address] [place] [address] GENOMIC MEDICINE [address] [address] after 11/04/2017 Insurance Payer Benefit Plan / Group Subscriber ID Type Phone Address MEDICARE MEDICARE PART A AND B xxxxxxxxxxx Medicare [place], [place] Advance Directives Patient has advance care planning documents on file. For more information, please contact:Javed Mcintosh[address] [place] [address]
--- OUTSIDE RECORDS SUMMARY | 2018-11-05 12:15 | XMS REPORT ---
:1950 [facility] Address [address] [place] [address] Dr. Fitch [address] [place] [id number] Care Team Providers Name Role Phone Unavailable Unavailable Unavailable Problems This patient has no known problems. Allergies, Adverse Reactions, Alerts This patient has no known allergies or adverse reactions. Medications This patient has no known medications.
[2018-11-05 13:15] LABS: Absolute Lymphocytes (CBC) 0.7 K/uL (0.7-4.9); Absolute Monocytes 0.5 K/uL (0.1-1.3); Absolute Neutrophil 3.5 K/uL (1.8-8.0); Basophils % 0.3 % (0-1.3); Eosinophils % 2.8 % (0-4.4); Hematocrit 24.4 % (36.0-45.0); Lymphocytes % 13.7 % (15.3-44.8); MPV 9.7 fL (7.6-11.3); Monocytes % 11.2 % (3.3-12.3); RBC Red Blood Cell Count 2.69 M/uL (3.86-4.86)
[2018-11-05 13:18] LABS: Protime INR 1.04
[2018-11-05] MEDS ORDERED: NA CHLORIDE 0.9% 1,000 ML ONE (13:21)
[2018-11-05] MEDS ORDERED: METHYLPREDNISOLONE 125 MG INJ ONE (13:21)
[2018-11-05 13:54] LABS: Albumin 2.8 g/dL (3.4-5.0); Bilirubin Total 0.3 mg/dL (0.2-1.0); Magnesium 2.3 mg/dL (1.8-2.4); Potassium 4.1 mmol/L (3.5-5.1); Protein, Total 6.1 g/dL (6.4-8.2); Troponin (Emerg Dept Use Only) 0.18 ng/mL (0.0-0.045)
[2018-11-05] MEDS ORDERED: CEFTRIAXONE/SWI 1gm 1 GM/10 ML SYR ONE (14:17)
[2018-11-05] MEDS ORDERED: AZITHROMYCIN 500 MG/250 ML BAG ONE (14:17)
--- NOTE | 2018-11-05 15:35 | RAD REPORT ---
EXAM DESCRIPTION: CT - Chest For Pe Angio - 11/05/2018 3:21 pm CLINICAL HISTORY: sob TECHNIQUE: Dynamically enhanced axial 3 mm thick images of the chest were obtained during administra tion of <100> mL Isovue 370 IV contrast. Coronal and oblique reconstruction images were generated and reviewed. Exam utilizes a protocol for optimal evaluation of pulmonary arterial tree. The patient has an elevated creatinine. Dr. Gruber felt that the benefits of detecting a life-threate chavez pulmonary embolus outweigh the risks of contrast induced kidney damage. Dr. Gruber explained the risks and benefits to the patient. The medical office technologist also did this. The pa shabana is aware and understands the risks and benefits and has agreed to proceed with the examination. The patient signed a consent form. A nuclear medicine V/Q scan could not be performed today at our [facility] Maximum intensity projections 3D imaging was utilized All CT scans are performed using dose optimization technique as appropriate and may include automated exposure control or mA/KV adjustment according to patient size. FINDINGS: A pulmonary embolus is not seen. A thoracic aortic aneurysm is not noted. Small bilateral pleural effusions are present. . A pericardial effusion is not seen. Mild to moderate bilateral pulmonary lung opacities. IMPRESSION: Negative for a pulmonary embolism. CHF
--- NOTE | 2018-11-05 15:36 | RAD REPORT ---
EXAM DESCRIPTION: Dolly Single View11/05/2018 12:57 pm CLINICAL HISTORY: Shortness of breath COMPARISON: September 2018 FINDINGS: Mild to moderate bilateral pulmonary opacities. Small bilateral pleural effusions. Heart is moderately enlarged. Postsurgical changes involve the chest IMPRESSION: CHF
[2018-11-05] MEDS ORDERED: NITROGLYCERIN 0.4 MG/TAB SL ONE (16:23)
--- NOTE | 2018-11-05 16:41 | ER ---
Nurse's Notes [facility] Name: Cheyanne Haywood Age: 68 yrs Sex: Female : 1950 Arrival Date: 11/05/2018 Time: 12:14 Bed 14 Private MD: Nhgia Jones E Diagnosis: Pneumonia;Acute CHF exacerbation;CKD;Dyspnea;Hypoxia Presentation: 11/05 12:26 Presenting complaint: SOB, chest congestion, and productive cough x 3 days. Denies hb fever. Transition of care: patient was not received from another setting of care. Onset of symptoms was November 03, 2018. Risk Assessment: Do you want to hurt yourself or someone else? Patient reports no desire to harm self or others. Care prior to arrival: None. 12:26 Method Of Arrival: Ambulatory hb 12:26 Acuity: NORMA 3 hb 17:47 Initial Sepsis Screen: Does the patient meet any 2 criteria? No. Patient's initial bp sepsis screen is negative. Does the patient have a suspected source of infection? No. Patient's initial sepsis screen is negative. Triage Assessment: 12:36 General: Appears in no apparent distress. comfortable, Behavior is calm, cooperative, bp appropriate for age. Pain: Complains of pain in THROAT. Respiratory: Reports cough that is Onset: The symptoms/episode began/occurred 3 DAYS, the patient has moderate shortness of breath. Historical: - Allergies: 12:30 No Known Allergies; hb - Home Meds: 12:30 aspirin 81 mg oral chew once daily [Active]; atorvastatin Oral [Active]; carpia xp hb 180mg OD [Active]; metoprolol tartrate 50 mg Oral tab 2 times per day [Active]; doxocin 2 mg tablet BID [Active]; Plaquenil 200 mg Oral tab 2 tabs 2 times per day [Active]; Plavix 75 mg Oral tab [Active]; Zoloft 20 mg/mL Oral conc 7.5 mL once daily [Active]; - PMHx: 12:30 Depression; kidney problems; Hypertension; Lupus; hb - PSHx: 12:30 CABG; aortic valve replacement; hb - Immunization history:: Adult Immunizations up to date. - Social history:: Smoking status: Patient/guardian denies using tobacco. - Ebola Screening: : No symptoms or risks identified at this time. Screenin:30 Abuse screen: Denies threats or abuse. Denies injuries from another. Nutritional hb screening: No deficits noted. Tuberculosis screening: No symptoms or risk factors identified. Fall Risk None identified. Assessment: 12:37 General: Appears in no apparent distress. comfortable, Behavior is calm, cooperative, bp appropriate for age, SEE TRIAGE NOTE. Cardiovascular: Rhythm is sinus rhythm. Respiratory: Reports cough that is Airway is patent Respiratory effort is even, unlabored, Respiratory pattern is regular, symmetrical, Breath sounds are clear bilaterally. 14:30 Reassessment: IV ABX INFUSING, CT RESULTS PENDING. bp 16:35 Reassessment: PT PLACED ON BIPAP. bp Vital Signs: 12:28 BP 126 / 66; Pulse 72; Resp 20; Temp 97.4; Pulse Ox 95% on R/A; Pain 3/10; hb 14:18 BP 167 / 85; Pulse 80; Resp 20; Pulse Ox 96% on R/A; mh5 15:38 BP 182 / 94; Pulse 69; Resp 20; Pulse Ox 96% on 2 lpm NC; bp 16:35 BP 179 / 100; Pulse 69; Resp 18; Pulse Ox 99% on BiPAP; bp 16:51 BP 180 / 98; Pulse 64; Resp 19; Pulse Ox 100% on BiPAP; mh5 17:50 BP 190 / 94; Pulse 65; Resp 21; Pulse Ox 100% ; bp ED Course: 12:14 Patient arrived in ED. rg4 12:14 Nghia Jones MD is Private Physician. rg4 12:28 Triage completed. hb 12:30 Arm band placed on. hb 12:32 Jeromy Gruber MD is Attending Physician. ps1 12:35 Rolando Landis, DEBORAH is Primary Nurse. bp 12:37 Patient has correct armband on for positive identification. Placed in gown. Bed in low bp position. Call light in reach. Side rails up X2. 12:53 EKG done, by ED staff, reviewed by Jeromy Gruber MD. mh5 12:54 Warm blanket given. residential monitor on. Pulse ox on. NIBP on. mh5 12:58 CXR XRAY In Process Unspecified. EDMS 13:08 Flu Sent. mh5 13:08 Lipase Sent. mh5 13:08 Magnesium Sent. mh5 13:08 D-Dimer Sent. 5 13:08 CMP Sent. mh5 13:08 CBC with Automated Diff Sent. 5 13:08 CBC with Diff Sent. [facility] 13:08 D-Dimer Sent. [facility] 13:08 Lipase Sent. [facility] 13:08 Magnesium Sent. [facility] 13:08 NT PRO-BNP Sent. [facility] 13:09 PT-INR Sent. [facility] 13:09 Ptt, Activated Sent. [facility] 13:09 Troponin (emerg Dept Use Only) Sent. [facility] 13:09 Initial lab(s) drawn, by md, sent to lab. Flu and/or RSV swab sent to lab. Inserted [facility] saline lock: 20 gauge in right antecubital area, using aseptic technique. Blood collected. 15:14 CT completed. Patient moved to CT via wheelchair. Patient moved back from CT. bq 15:21 CT Chest For PE Angio In Process Unspecified. EDMS 16:40 Greg Cramer MD is Hospitalizing Provider. ps1 17:47 No provider procedures requiring assistance completed. Patient admitted, IV remains in bp place. Administered Medications: 13:00 Drug: SOLU-Medrol 125 mg Route: IVP; Site: right antecubital; bp 13:30 Follow up: Response: No adverse reaction bp 13:00 Drug: NS 0.9% 1000 ml Route: IV; Rate: 1 bolus; Site: right antecubital; bp 16:15 Follow up: IV Status: Order to discontinue infusion; IV Intake: 200ml bp 14:18 Drug: Rocephin - (cefTRIAXone) 1 grams Route: IVPB; Infused Over: 30 mins; Site: right bp antecubital; 14:40 Follow up: IV Status: Completed infusion; IV Intake: 50ml bp 15:15 Drug: AZITHromycin 500 mg Route: IVPB; Infused Over: 1 hrs; Site: right antecubital; bp 16:15 Follow up: IV Status: Completed infusion; IV Intake: 250ml bp Intake: 14:40 IV: 50ml; Total: 50ml. bp 16:15 IV: 250ml; Total: 300ml. bp 16:15 IV: 200ml; Total: 500ml. bp Outcome: 16:41 Decision to Hospitalize by Provider. ps1 17:48 Condition: stable bp 17:48 Instructed on the need for admit. 18:10 Admitted to Tele accompanied by tech, family with patient, via stretcher, room 205, bp with chart, Report called to LEIDY CABRERA 18:21 Patient left the ED. bp Signatures: Dispatcher [employer] EDDanielle Cortes Heather, RN RN Kaela Hong 4 Scarlett Samuels Rolando Moseley RN RN bp Jeromy Gruber MD MD ps1
--- NOTE | 2018-11-05 16:41 | EDPHYS ---
Physician Documentation [facility] Name: Cheyanne Haywood Age: 68 yrs Sex: Female : 1950 Arrival Date: 11/05/2018 Time: 12:14 Bed 14 Private MD: Nghia Jones E ED Physician Jeromy Gruber HPI: 11/05 12:38 This 68 yrs old Female presents to ER via Ambulatory with complaints of ps1 Shortness Of Breath, Congestion. 12:38 hx of lupus and kidney disease. Has had URI symptoms for last week. Cough, voice ps1 changes, congestion. Productive cough described as dark. Shortness of breath. . Historical: - Allergies: 12:30 No Known Allergies; hb - Home Meds: 12:30 aspirin 81 mg oral chew once daily [Active]; atorvastatin Oral [Active]; carpia xp hb 180mg OD [Active]; metoprolol tartrate 50 mg Oral tab 2 times per day [Active]; doxocin 2 mg tablet BID [Active]; Plaquenil 200 mg Oral tab 2 tabs 2 times per day [Active]; Plavix 75 mg Oral tab [Active]; Zoloft 20 mg/mL Oral conc 7.5 mL once daily [Active]; - PMHx: 12:30 Depression; kidney problems; Hypertension; Lupus; hb - PSHx: 12:30 CABG; aortic valve replacement; hb - Immunization history:: Adult Immunizations up to date. - Social history:: Smoking status: Patient/guardian denies using tobacco. - Ebola Screening: : No symptoms or risks identified at this time. ROS: 12:38 Eyes: Negative for injury, pain, redness, and discharge, Neck: Negative for injury, ps1 pain, and swelling, Cardiovascular: Negative for chest pain, palpitations, and edema, Abdomen/GI: Negative for abdominal pain, nausea, vomiting, diarrhea, and constipation, Back: Negative for injury and pain, MS/Extremity: Negative for injury and deformity, Skin: Negative for injury, rash, and discoloration, Neuro: Negative for headache, weakness, numbness, tingling, and seizure. 12:38 Constitutional: Positive for body aches, chills, fatigue. 12:38 Respiratory: Positive for cough, "sounds productive", shortness of breath. Exam: 12:38 Constitutional: This is a well developed, well nourished patient who is awake, alert, ps1 and in no acute distress. Head/Face: Normocephalic, atraumatic. Eyes: Pupils equal round and reactive to light, extra-ocular motions intact. Lids and lashes normal. Conjunctiva and sclera are non-icteric and not injected. Chest/axilla: Normal chest wall appearance and motion. Nontender with no deformity. No lesions are appreciated. Cardiovascular: Regular rate and rhythm. No gallops, murmurs, or rubs. Normal PMI, no JVD. No pulse deficits. Abdomen/GI: Soft, non-tender, with normal bowel sounds. No distension or tympany. No guarding or rebound. No evidence of tenderness throughout. Back: No spinal tenderness. No costovertebral tenderness. Full range of motion. Skin: Warm, dry with normal turgor. Normal color with no rashes, no lesions, and no evidence of cellulitis. 12:38 Respiratory: the patient does not display signs of respiratory distress, Respirations: normal, Breath sounds: rhonchi. Vital Signs: 12:28 BP 126 / 66; Pulse 72; Resp 20; Temp 97.4; Pulse Ox 95% on R/A; Pain 3/10; hb 14:18 BP 167 / 85; Pulse 80; Resp 20; Pulse Ox 96% on R/A; mh5 15:38 BP 182 / 94; Pulse 69; Resp 20; Pulse Ox 96% on 2 lpm NC; bp 16:35 BP 179 / 100; Pulse 69; Resp 18; Pulse Ox 99% on BiPAP; bp 16:51 BP 180 / 98; Pulse 64; Resp 19; Pulse Ox 100% on BiPAP; mh5 17:50 BP 190 / 94; Pulse 65; Resp 21; Pulse Ox 100% ; bp MDM: 12:43 Patient medically screened. ps1 14:32 Data reviewed: vital signs, nurses notes, lab test result(s). ED course: discussed with ps1 patient need for CT angiogram despite CKD. She has high probability for PE given her examination, history, risk factors. We use iso-osmolar and non-ionic contrast agents that have been found to be less nephrotoxic than antiquated agents used in the past. Patients severity of disease has been more closely associated with reduction of kidney function more than the contrast agents used to diagnose. Not performing the CTA would be a delay of care, diagnosis, and the alternative VQ scan is considerably less effective in making a diagnosis and logistically detrimental to the patient in terms of transfer. . 11/05 12:41 Order name: CBC with Diff ps1 11/05 12:41 Order name: D-Dimer ps1 11/05 12:41 Order name: Lipase ps1 11/05 12:41 Order name: Magnesium ps1 11/05 12:41 Order name: NT PRO-BNP; Complete Time: 13:56 ps1 11/05 12:41 Order name: PT-INR; Complete Time: 13:45 ps1 11/05 12:41 Order name: Ptt, Activated; Complete Time: 13:45 ps1 11/05 12:41 Order name: Troponin (emerg Dept Use Only); Complete Time: 13:56 ps1 11/05 12:41 Order name: CMP; Complete Time: 13:56 ps1 11/05 12:42 Order name: CBC with Automated Diff; Complete Time: 13:45 EDMS 11/05 12:42 Order name: D-Dimer; Complete Time: 13:45 EDMS 11/05 12:42 Order name: Lipase; Complete Time: 13:56 EDMS 11/05 12:42 Order name: Magnesium; Complete Time: 13:56 EDMS 11/05 12:42 Order name: Flu; Complete Time: 13:45 ps1 11/05 12:41 Order name: EKG; Complete Time: 12:43 ps1 11/05 12:41 Order name: Cardiac monitoring; Complete Time: 12:50 ps1 11/05 12:41 Order name: EKG - Nurse/Tech; Complete Time: 12:50 ps1 11/05 12:41 Order name: IV Saline Lock; Complete Time: 13:15 ps1 11/05 12:41 Order name: Labs collected and sent; Complete Time: 13:15 ps1 11/05 12:41 Order name: O2 Per Protocol; Complete Time: 12:50 ps1 11/05 12:41 Order name: O2 Sat Monitoring; Complete Time: 12:50 [facility] 11/05 12:42 Order name: CXR XRAY; Complete Time: 15:54 ps1 11/05 13:25 Order name: CT Chest For PE Angio; Complete Time: 15:54 pm1 11/05 17:18 Order name: BIPAP eb Administered Medications: 13:00 Drug: SOLU-Medrol 125 mg Route: IVP; Site: right antecubital; bp 13:30 Follow up: Response: No adverse reaction bp 13:00 Drug: NS 0.9% 1000 ml Route: IV; Rate: 1 bolus; Site: right antecubital; bp 16:15 Follow up: IV Status: Order to discontinue infusion; IV Intake: 200ml bp 14:18 Drug: Rocephin - (cefTRIAXone) 1 grams Route: IVPB; Infused Over: 30 mins; Site: right bp antecubital; 14:40 Follow up: IV Status: Completed infusion; IV Intake: 50ml bp 15:15 Drug: AZITHromycin 500 mg Route: IVPB; Infused Over: 1 hrs; Site: right antecubital; bp 16:15 Follow up: IV Status: Completed infusion; IV Intake: 250ml bp Disposition: 11/05/18 16:41 Hospitalization ordered by Greg Cramer for Inpatient Admission. Preliminary diagnosis are Pneumonia, Acute CHF exacerbation, CKD, Dyspnea, Hypoxia. - Bed requested for Telemetry/MedSurg (Inpatient). - Status is Inpatient Admission. bp - Condition is Fair. - Problem is new. - Symptoms have improved. UTI on Admission? No Signatures: Dispatcher [employer] EDAL Hattie Mckenzie RN RN dw Baxter, Heather, RN RN Rolando Landis RN RN bp Jeromy Gruber MD MD ps1 Corrections: (The following items were deleted from the chart) 17:22 16:41 Hospitalization Ordered by Greg Cramer MD for Inpatient Admission. Preliminary dw diagnosis is Pneumonia; Acute CHF exacerbation; CKD; Dyspnea; Hypoxia. Bed requested for Telemetry/MedSurg (Inpatient). Status is Inpatient Admission. Condition is Fair. Problem is new. Symptoms have improved. UTI on Admission? No. ps1 18:21 17:22 11/05/2018 16:41 Hospitalization Ordered by Greg Cramer MD for Inpatient bp Admission. Preliminary diagnosis is Pneumonia; Acute CHF exacerbation; CKD; Dyspnea; Hypoxia. Bed requested for Telemetry/MedSurg (Inpatient). Status is Inpatient Admission. Condition is Fair. Problem is new. Symptoms have improved. UTI on Admission? No. dw
[2018-11-05] MEDS ORDERED: ONDANSETRON 4 MG/2 ML VIAL IV PRN (18:46)
[2018-11-05] MEDS ORDERED: ACETAMINOPHEN 500 MG TAB PO PRN (18:46)
--- NOTE | 2018-11-05 19:09 | P.HP ---
Certification for Inpatient Patient admitted to: Inpatient With expected LOS: >2 Midnights Practitioner: I am a practitioner with admitting privileges, knowledge of patient current condition, hospital course, and medical plan of care. Services: Services provided to patient in accordance with Admission requirements found in Title 42 Section 412.3 of the Code of Federal Regulations Patient History Date of Service: 11/06/18 History of Present Illness: This is a 68-year-old female with history of CKD stage 4, CAD status post CABG, hypertension, history of aortic valve replacement, lupus admitted for shortness of breath and flu-like symptoms. Per patient, she has been having these symptoms for the past couple of days, has not gotten any better. She denies any fevers, chills, chest pain, dizziness, headache, vision changes, or speech changes. In the ER, risks versus benefits for keeping her contrast to evaluate for pulmonary embolism with discussed, it was decided that benefits were greater and a CT PE was done, which was negative for a pulmonary embolism. She was given IV Rocephin and Zithromax in for pneumonia coverage. She was then placed on BiPAP as she was satting in the 70s when she walked to the bathroom and back. At the time of my exam, patient was on BiPAP, was alert oriented x3, in mild respiratory distress and her vital signs were stable. Allergies No Known Drug Allergies Allergy (Verified 11/06/18 01:42) Unknown Home Medications: Aspirin 1 tab PO DAILY 11/05/18 Atorvastatin Calcium [Lipitor] 20 mg PO BEDTIME 11/05/18 Calcitriol [Rocaltrol] 1 tab PO DAILY 11/05/18 Cyclosporine/Chondroit Sulf A [Cyclosporine 0.1% in [place]] 1 drop BID Diltiazem HCl [Cartia Xt] 180 mg PO DAILY 11/05/18 Doxazosin [Cardura*] 1 tab PO BID 11/05/18 Fluticasone [Flovent Hfa 110*] 1 spray IH BID 11/05/18 Hydroxychloroquine Sulfate 1 tab PO DAILY 11/05/18 Metoprolol Tartrate [Lopressor*] 1 tab PO BID 11/05/18 Sertraline [Zoloft] 75 mg PO DAILY 11/05/18 Vit D3/Folic Acid/B2/B6/B12 [Folgard Tablet] 1,000 mg PO BID 11/05/18 - Past Medical/Surgical History Diabetic: No -: Hypertension -: Aortic valve replacement -: Coronary artery disease, CABG x1 vessel -: Lupus -: Chronic renal disease -: Anemia of chronic disease -: Depression -: Aortic valve replacement -: CABG x1 vessel -: Breast biopsies -: D/C Psychosocial/ Personal History: The patient is . She has children. She does not work. - Family History Mother -: Other (see notes) Father -: Heart disease, Diabetes - Social History Alcohol use: No CD- Drugs: No Caffeine use: Yes Review of Systems 10-point ROS is otherwise unremarkable Physical Examination - Vital Signs Temperature: 97.4 F Blood Pressure: 190/91 Pulse: 69 Respirations: 21 - Physical Exam General: Alert, Oriented x3, Mild distress HEENT: Atraumatic, PERRLA, Mucous membr. moist/pink, EOMI, Sclerae nonicteric Neck: Supple, 2+ carotid pulse no bruit, No LAD, Without JVD or thyroid abnormality Respiratory: Crackles/rales, Expiratory wheezes, Other (On BiPAP) Cardiovascular: Regular rate/rhythm, Normal S1 S2 Gastrointestinal: Normal bowel sounds, No tenderness Musculoskeletal: No tenderness Integumentary: No rashes Neurological: Normal gait, Normal speech, Normal strength at 5/5 x4 extr, Normal tone, Normal affect Lymphatics: No axilla or inguinal lymphadenopathy - Studies Laboratory Data (last 24 hrs) 11/05/18 13:00: Sodium 144, Potassium 4.1, BUN 44 H, Creatinine 4.15 H, Glucose 105, Magnesium 2.3, Total Bilirubin 0.3, AST 22, ALT 15, Alkaline Phosphatase 99 , Lipase 170 11/05/18 13:00: PT 12.3, INR 1.04, APTT 28.0 11/05/18 13:00: WBC 4.9, Hgb 8.3 L, Hct 24.4 L, Plt Count 115 L Microbiology Data (last 24 hrs): 11/05/18 13:00 Nasopharnyx Influenza Type A Antigen Screen - Final 11/05/18 13:00 Nasopharnyx Influenza Type B Antigen Screen - Final Assessment and Plan - Plan This is a 68-year-old female with: Dyspnea Pneumonia versus volume overload. 1 time IV Lasix 40 given Patient was on BiPAP in the ER, no ABG's were done. On the floor, patient is satting 98% on 2 L of oxygen. BiPAP ordered if needed overnight Repeat chest x-ray tomorrow. 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 Hwang Nephrology consulted here. Creatinine stable from prior admission. Coronary artery disease requiring CABG Stable, denies any chest pain at this time. Will continue to monitor. Essential hypertension Uncontrolled, likely because patient is not taking her blood pressure medication this evening. Will go ahead and restart home medications and monitor blood pressure. Will make adjustments as needed History of aortic valve replacement Stable. Start home medications. Systemic lupus erythematous. Stable Depression Stable. Start home medications Anemia of chronic disease Hemoglobin stable, no evidence of bleeding. Will continue to monitor H&H. DVT prophylaxis: GI prophylaxis: Not needed Diet: Renal, fluid restriction of 1.5 L Disposition: Admit to floor with tele. Monitor, pending symptomatic improvement. - Advance Directives Does patient have a Living Will: No Does patient have a Durable POA for Healthcare: No
[2018-11-05] MEDS ORDERED: FUROSEMIDE 40 MG/4 ML VIAL IV ONE (20:00)
[2018-11-05 20:55] LABS: Urine Appearance CLEAR; Urine Bilirubin NEGATIVE (NEG); Urine Blood 1+ (NEG); Urine Color YELLOW; Urine Glucose TRACE (NEG); Urine Protein 2+ (NEG); Urine Specific Gravity 1.015 (1.005-1.030); Urine Urobilinogen 0.2 mg/dL (0.2-1.0); Urine pH 7.5 (5.0-7.0)
[2018-11-05 21:12] LABS: Urine Microscopic Reflex ORDER UMIC
[2018-11-05 21:37] VITALS: BMI 29.2
[2018-11-05] MEDS: METOPROLOL TAR 50 MG TAB PO SCH (21:46)
[2018-11-05] MEDS: DOXAZOSIN 2 MG TAB PO SCH (21:46)
[2018-11-05] MEDS: ENOXAPARIN 40 MG/0.4 ML SQ SCH (21:47)
[2018-11-05 22:10] LABS: Urine Bacteria <20 /HPF (<20); Urine RBC <5 /HPF (NONE SEEN)
[2018-11-05 22:11] LABS: Urine Culture Reflex Order NOT NEEDED
[2018-11-06] MEDS ORDERED: HYDRALAZINE HCL 20 MG/ML VIAL IV PRN (00:10)
[2018-11-06 05:15] LABS: Absolute Lymphocytes (CBC) 0.6 K/uL (0.7-4.9); Absolute Monocytes 0.4 K/uL (0.1-1.3); Absolute Neutrophil 3.8 K/uL (1.8-8.0); Basophils % 0.1 % (0-1.3); Hematocrit 24.1 % (36.0-45.0); Lymphocytes % 12.9 % (15.3-44.8); MPV 9.6 fL (7.6-11.3); Monocytes % 7.9 % (3.3-12.3); RBC Red Blood Cell Count 2.66 M/uL (3.86-4.86)
[2018-11-06 05:34] LABS: Albumin 2.7 g/dL (3.4-5.0); Bilirubin Total 0.2 mg/dL (0.2-1.0); Phosphorus 4.5 mg/dL (2.5-4.9); Potassium 4.2 mmol/L (3.5-5.1); Protein, Total 6.1 g/dL (6.4-8.2)
[2018-11-06] MEDS ORDERED: FLUTICASONE IH SCH (09:00)
[2018-11-06] MEDS ORDERED: B12 PO SCH (09:00)
[2018-11-06] MEDS ORDERED: [UNRECOGNIZED DRUG - OTHER] OPTH SCH (09:00)
[2018-11-06] MEDS ORDERED: FOLIC ACID PO SCH (09:00)
[2018-11-06] MEDS ORDERED: B2 PO SCH (09:00)
[2018-11-06] MEDS ORDERED: CHONDROIT SULF A OPTH SCH (09:00)
[2018-11-06] MEDS ORDERED: B6 PO SCH (09:00)
[2018-11-06] MEDS ORDERED: VIT D3 PO SCH (09:00)
[2018-11-06] MEDS ORDERED: CYCLOSPORINE OPTH SCH (09:00)
[2018-11-06] MEDS: SERTRALINE HCL 50 MG TAB PO SCH (09:20)
[2018-11-06] MEDS: HYDROXYCHLOROQUINE 200MG TAB PO SCH (09:20)
[2018-11-06] MEDS: CALCITROL 0.25 MCG CAP PO SCH (09:20)
[2018-11-06] MEDS: ASPIRIN 81 MG CHEWABLE TABLET PO SCH (09:21)
[2018-11-06] MEDS: DILTIAZEM HCL 180 MG SR CAP PO SCH (09:21)
[2018-11-06] MEDS: DOXAZOSIN 2 MG TAB PO SCH ×2 (09:22→21:31)
[2018-11-06] MEDS: METOPROLOL TAR 50 MG TAB PO SCH ×2 (09:22→21:31)
[2018-11-06] MEDS: ENOXAPARIN 40 MG/0.4 ML SQ SCH (09:23)
--- NOTE | 2018-11-06 10:51 | P.PN ---
Subjective Date of Service: 11/06/18 Chief Complaint: Shortness of breath Subjective: No new changes, No C/O voiced, Improving Patient seen and examined at bedside. No family at bedside. Chart reviewed and case discussed with nursing staff. Reports improved breathing, though did have rough night. Continues to saturate well on 2 L nasal cannula. Review of Systems 10-point ROS is otherwise unremarkable Physical Examination - Vital Signs Temperature: 97.4 F Blood Pressure: 190/91 Pulse: 69 Respirations: 21 Pulse Ox (%): 98 - Physical Exam General: Alert, In no apparent distress HEENT: Atraumatic, PERRLA, EOMI Neck: Supple, JVD not distended Respiratory: Dull, Crackles/rales, Expiratory wheezes, Inspiratory wheezes Cardiovascular: Regular rate/rhythm, Normal S1 S2 Gastrointestinal: Normal bowel sounds, No tenderness Musculoskeletal: No tenderness Integumentary: No rashes Neurological: Normal speech, Normal tone, Normal affect Lymphatics: No axilla or inguinal lymphadenopathy - Studies Laboratory Data (last 24 hrs) 11/05/18 13:00: Sodium 144, Potassium 4.1, BUN 44 H, Creatinine 4.15 H, Glucose 105, Magnesium 2.3, Total Bilirubin 0.3, AST 22, ALT 15, Alkaline Phosphatase 99 , Lipase 170 11/05/18 13:00: PT 12.3, INR 1.04, APTT 28.0 11/05/18 13:00: WBC 4.9, Hgb 8.3 L, Hct 24.4 L, Plt Count 115 L Microbiology Data (last 24 hrs): 11/05/18 13:00 Nasopharnyx Influenza Type A Antigen Screen - Final 11/05/18 13:00 Nasopharnyx Influenza Type B Antigen Screen - Final Assessment And Plan - Plan This is a 68-year-old female with: Dyspnea Pneumonia versus volume overload. 1 time IV Lasix 40 given, symptoms did improve. May consider IV dose Patient was on BiPAP in the ER, no ABG's were done. On the floor, patient is satting 98% on 2 L of oxygen. BiPAP ordered if needed overnight. Patient continues to do well on 2 L oxygen via nasal cannula. Repeat chest x-ray ordered yesterday, still pending. Pending echo Pneumonia Repeat chest x-ray pending. Initial chest x-ray reviewed, unsure of any infiltrates. Shortness of breath Likely secondary to 0 overload. 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 Hwang Nephrology consulted here. Creatinine continues to remain stable. Coronary artery disease requiring CABG Stable, denies any chest pain at this time. Will continue to monitor. Essential hypertension Uncontrolled, likely because patient is not taking her blood pressure medication this evening. Hydralazine discontinued Continue home blood pressure medications, will adjust as needed. History of aortic valve replacement Stable. Start home medications. Systemic lupus erythematous. Stable. Start home medications Depression Stable. Start home medications Anemia of chronic disease Hemoglobin stable, no evidence of bleeding. Will continue to monitor H&H. DVT prophylaxis: Lovenox GI prophylaxis: Not needed Diet: Renal, fluid restriction of 1.5 L Disposition: Monitor, pending symptomatic improvement. Physician Review: Patient Assessed, Agree with Above Assessment and Plan Time Spent Managing PTS Care (In Minutes): 35
--- NOTE | 2018-11-06 12:17 | RAD REPORT ---
EXAM DESCRIPTION: RAD - Chest Pa And Lat (2 Views) - 11/06/2018 6:26 am CLINICAL HISTORY: Interval management Chest pain. COMPARISON: Chest Single View dated 11/05/2018; Chest Single View dated 09/30/2018; Chest Single Vie w dated 09/24/2018; Chest Single View dated 11/01/2016 FINDINGS: Mild pulmonary edema is seen with bilateral pleural effusions, stable. Heart is mildly to moderately enlarged in size. No displaced fractures. Sternotomy wires present. IMPRESSION: Stable findings of mild CHF versus volume overload pattern.
[2018-11-06] MEDS ORDERED: FUROSEMIDE 40 MG/4 ML VIAL IV SCH ×2 (14:00→19:00)
--- NOTE | 2018-11-06 17:28 | EKG ---
Test Date: 2018-11-05 Test Time: 12:47:27 Deputy Chief Counsel: AARON MEASUREMENT RESULTS: Intervals: Rate: 63 NV: 178 QRSD: 106 QT: 454 QTc: 464 [place]: P: 65 NV: 178 QRS: 2 T: 113 INTERPRETIVE STATEMENTS: Normal sinus rhythm Minimal voltage criteria for LVH, may be normal variant ST & T wave abnormality, consider lateral ischemia Abnormal ECG Compared to ECG 09/29/2018 23:44:24 Left ventricular hypertrophy now present ST (T wave) deviation now present Possible ischemia now present Sinus bradycardia no longer present Right bundle-branch block no longer present Electronically Signed On 11-06-18 17:18:19 MICROGRINDER OPERATOR by Matthew Braden
[2018-11-06] MEDS: ATORVASTATIN 40 MG TAB PO SCH (21:31)
[2018-11-07 05:54] LABS: Absolute Lymphocytes (CBC) 1.1 K/uL (0.7-4.9); Absolute Monocytes 0.6 K/uL (0.1-1.3); Absolute Neutrophil 4.4 K/uL (1.8-8.0); Basophils % 0.3 % (0-1.3); Eosinophils % 2.5 % (0-4.4); Hematocrit 22.5 % (36.0-45.0); MPV 9.1 fL (7.6-11.3); Monocytes % 10.3 % (3.3-12.3)
[2018-11-07 06:22] LABS: Albumin 2.7 g/dL (3.4-5.0); Bilirubin Total 0.2 mg/dL (0.2-1.0); Potassium 4.3 mmol/L (3.5-5.1); Protein, Total 5.6 g/dL (6.4-8.2)
[2018-11-07] MEDS: CALCITROL 0.25 MCG CAP PO SCH (09:21)
[2018-11-07] MEDS: SERTRALINE HCL 50 MG TAB PO SCH (09:21)
[2018-11-07] MEDS: ASPIRIN 81 MG CHEWABLE TABLET PO SCH (09:21)
[2018-11-07] MEDS: DOXAZOSIN 2 MG TAB PO SCH ×2 (09:21→20:41)
[2018-11-07] MEDS: HYDROXYCHLOROQUINE 200MG TAB PO SCH (09:22)
[2018-11-07] MEDS: FUROSEMIDE 40 MG/4 ML VIAL IV SCH ×2 (09:22→20:42)
[2018-11-07] MEDS: ENOXAPARIN 30 MG/0.3 ML SQ SCH (09:22)
[2018-11-07] MEDS: METOPROLOL TAR 50 MG TAB PO SCH ×2 (09:22→20:42)
[2018-11-07] MEDS: DILTIAZEM HCL 180 MG SR CAP PO SCH (09:26)
[2018-11-07 11:47] LABS: Hematocrit 25.2 % (36.0-45.0)
[2018-11-07] MEDS ORDERED: EPOETIN ALFA 10,000 UNIT/ML VIAL SQ SCH (15:00)
--- NOTE | 2018-11-07 17:31 | P.PN ---
Subjective Date of Service: 11/07/18 Chief Complaint: Shortness of breath Subjective: No new changes, No C/O voiced, Improving Patient seen and examined at bedside. No family at bedside. Chart reviewed and case discussed with nursing staff. Reports improved breathing, saturating 90% on room air at rest. Desaturates to 84% while walking. Endorses cough. Denies any chest pain, headache, dizziness, vision changes, GI complaints or complaints. Review of Systems 10-point ROS is otherwise unremarkable Physical Examination - Vital Signs Temperature: 97.7 F Blood Pressure: 146/79 Pulse: 59 Respirations: 18 Pulse Ox (%): 95 - Physical Exam General: Alert, In no apparent distress, Oriented x3 HEENT: Atraumatic, PERRLA, EOMI Neck: Supple, JVD not distended Respiratory: Diminished, Crackles/rales Cardiovascular: Regular rate/rhythm, Normal S1 S2 Gastrointestinal: Normal bowel sounds, No tenderness Musculoskeletal: No tenderness Integumentary: No rashes Neurological: Normal speech, Normal tone, Normal affect Lymphatics: No axilla or inguinal lymphadenopathy Assessment And Plan - Plan This is a 68-year-old female with: Dyspnea Pneumonia versus volume overload. 1 time IV Lasix 40 given, symptoms did improve. Currently on 60 mg IV Lasix b.i.d.. Patient was on BiPAP in the ER, no ABG's were done. On the floor, patient is satting 98% on 2 L of oxygen. BiPAP ordered if needed overnight. Patient continues to do well on 2 L oxygen via nasal cannula. Repeat chest x-ray ordered yesterday, stable Pending echo Pneumonia Repeat chest x-ray stable from volume overload point of view Initial chest x-ray reviewed, unsure of any infiltrates. Shortness of breath Likely secondary to volume overload. CKD stage 4 Patient does have an medical billing representative at [facility], Dr. Hwang Nephrology consulted here. Recommendations appreciated Creatinine continues to remain stable. Coronary artery disease requiring CABG Stable, denies any chest pain at this time. Will continue to monitor. Essential hypertension Uncontrolled, likely because patient is not taking her blood pressure medication this evening. Hydralazine discontinued Better control with home medications. History of aortic valve replacement Stable. Start home medications. Systemic lupus erythematous. Stable. Start home medications Depression Stable. Start home medications Anemia of chronic disease Hemoglobin stable, no evidence of bleeding. Will continue to monitor H&H. DVT prophylaxis: Lovenox GI prophylaxis: Not needed Diet: Renal, fluid restriction of 1.5 L Disposition: Monitor, pending symptomatic improvement. Physician Review: Patient Assessed, Agree with Above Assessment and Plan
[2018-11-07] MEDS: BENZONATATE 100 MG CAP PO PRN (18:28)
--- NOTE | 2018-11-07 18:31 | CON ---
Date of Consultation: 11/07/2018 NEPHROLOGY CONSULT Reason For Consultation: Chronic renal insufficiency. History Of Present Illness: Ms. Haywood is a 68-year-old female with past medical history significant for stage 4 CKD, hypertension, hyperlipidemia, presented to [facility] with complaints of s hortness of breath and flu-like symptoms. She denied any fevers, chills, chest pain, dizziness, head ache, or changes in her vision. She had a CT scan of her chest done at the time of admission to rule out a PE with IV contrast. She has been treated for pneumonia as well as for the CHF with Lasix. S he states that she is doing better at this time, but still has shortness of breath upon exertion, but denies any orthopnea or paroxysmal nocturnal dyspnea. Past Medical History: Significant for history of coronary artery disease status post CABG, hypertens ion, aortic valve replacement, history of lupus, stage 4 CKD, being followed by Dr. Underwood. Past Surgical History: Significant for history of CABG, aortic valve replacement, breast biopsies, a nd D and C. Social History: and lives with her family. No history of smoking or alcohol use reported. Family History: Noncontributory at this time. Review of Systems: Positive for some shortness of breath associated with some weakness and lethargy along with some musc le aches. Denies any orthopnea, but does have some dyspnea on exertion. Denies any chest pain. All other review of systems are negative. Physical Examination: Vital Signs: Showing temperature of 97.7, pulse rate of 59, respiratory rate of 18, and blood pressu re 146/79. General: She appears in no acute distress. Lungs: Clear to auscultation with diminished breath sounds at bases. Heart: Auscultation of the heart revealed regular rate and rhythm. Abdomen: Soft. Extremities: Without any evidence of edema. Laboratory Data: Showing creatinine of 4.1, BUN of 49, and other electrolytes are stable. CBC showi ng hemoglobin of 8.5 and hematocrit of 25.2. Urinalysis done at the time of admission showed no evid ence of any infection. Current Medications: Include Lasix 60 mg IV b.i.d., diltiazem 180 mg a day, calcitriol 0.25 mcg once a day, atorvastatin, aspirin, Lovenox for DVT prophylaxis, hydroxychloroquine 200 mg a day, metoprol ol 50 mg b.i.d., and sertraline. Impression: 1.Chronic renal insufficiency stage 4, with mild acute component, currently with overall stable ivana l function at this time despite getting IV contrast. 2.Possible congestive heart failure exacerbation. The patient has had a CT scan of her chest done a t the time of admission results of which were consistent with bilateral pulmonary lung opacities conc erning for pulmonary edema. The patient's symptom seems to be improving with IV Lasix. We will hold off on any antibiotics and monitor her closely. 3.Chronic anemia, currently with overall stable hemoglobin and hematocrit. We will give her a dose of Epogen to maintain her anemia levels while she remains hospitalized. 4.History of coronary artery disease, currently stable at this time, no acute issues. 5.History of systemic lupus erythematosus, remains on Plaquenil. Plan: The patient is overall doing okay at this time. She is being treated for volume overload with Lasix 60 mg IV b.i.d. Agree with Lasix and monitoring renal function closely. The patient may need to be discharged on p.o. Lasix and followed up as outpatient to monitor her volume status. We will give her a dose of Epogen to maintain her anemia while she remains hospitalized to avoid further bloo d transfusions and follow up closely. Plan was discussed with Dr. Cramer and also discussed with the jarett donald and all questions were answered. ALBA/HECTOR Voice ID: [id number] Report ID: [id number]
[2018-11-07] MEDS: ATORVASTATIN 40 MG TAB PO SCH (20:42)
[2018-11-08] MEDS: BENZONATATE 100 MG CAP PO PRN (04:48)
[2018-11-08 05:20] LABS: Absolute Lymphocytes (CBC) 0.8 K/uL (0.7-4.9); Absolute Monocytes 0.6 K/uL (0.1-1.3); Absolute Neutrophil 2.6 K/uL (1.8-8.0); Basophils % 0.5 % (0-1.3); Eosinophils % 4.5 % (0-4.4); Hematocrit 23.8 % (36.0-45.0); Lymphocytes % 19.7 % (15.3-44.8); MPV 9.2 fL (7.6-11.3); RBC Red Blood Cell Count 2.63 M/uL (3.86-4.86)
[2018-11-08 05:24] LABS: Albumin 2.7 g/dL (3.4-5.0); Bilirubin Total 0.3 mg/dL (0.2-1.0); Potassium 4.3 mmol/L (3.5-5.1); Protein, Total 5.9 g/dL (6.4-8.2)
[2018-11-08 08:08] VITALS: O2SAT 98
[2018-11-08] MEDS: DOXAZOSIN 2 MG TAB PO SCH (08:23)
[2018-11-08] MEDS: CALCITROL 0.25 MCG CAP PO SCH (08:23)
[2018-11-08] MEDS: ASPIRIN 81 MG CHEWABLE TABLET PO SCH (08:23)
[2018-11-08] MEDS: METOPROLOL TAR 50 MG TAB PO SCH (08:23)
[2018-11-08] MEDS: HYDROXYCHLOROQUINE 200MG TAB PO SCH (08:24)
[2018-11-08] MEDS: SERTRALINE HCL 50 MG TAB PO SCH (08:24)
[2018-11-08] MEDS: DILTIAZEM HCL 180 MG SR CAP PO SCH (08:25)
[2018-11-08] MEDS: FUROSEMIDE 40 MG/4 ML VIAL IV SCH (08:25)
[2018-11-08] MEDS: ENOXAPARIN 30 MG/0.3 ML SQ SCH (08:30)
[2018-11-08 12:48] VITALS: BP 142/64; TEMP 97.1
--- NOTE | 2018-11-08 15:06 | DS ---
Date of Discharge: 11/08/2018 Discharge Diagnoses: 1. Chronic renal insufficiency, stage 4. 2. Pneumonia versus volume overload. 3. Dyspnea secondary to volume overload, improved. 4. Coronary artery disease, status post coronary artery bypass grafting. 5. Hypertension. 6. History of aortic valve replacement. 7. Systemic lupus erythematosus. 8. Depression. 9. Anemia of chronic disease. Discharge Condition: Stable. Consult: Nephrology. Procedure: CT angio was negative for PE. History Of Present Illness: Please refer to our H and P. Hospital Course: Initially, the patient presented with progressive shortness of breath and flu-like symptoms. CT angio was negative for PE. The patient was started empirically on IV antibiotic with Rocephin and Zithromax for presumed pneumonia. She was placed on BiPAP and overnight she improved, repeated x-ray on the showed stable finding of mild CHF with volume overload signs. Nephrology consult requested and they advised the patient needs to be discharged home on Lasix and follow up with track announcer for work up for kidney transplant. The patient did well and initially she needed O2 saturation until today where she was able to ambulate without oxygen O2 saturation around 90%. The patient will have a meeting tomorrow with kidney transplant physician for her workup. She was advised to have her O2 saturation checked again and see if she will need home oxygen. She will be discharged on 40 of Lasix twice a day. The patient continued to have anemia and thought to be anemia of chronic disease. Secondary to her renal insufficiency, she received Aranesp injection by Nephrology while she is inpatient. Her antibiotic will discontinue later on as we did not think the patient has pneumonia. Discharge Condition: Stable. Discharged Diet: Renal. Discharge Followup: Primary care physician in 1 week. Follow up with track announcer tomorrow. Nephrology to recheck oxygen and decide if the patient needs home O2. Discharge Activity: As tolerated. Discharge Medications: Lasix 40 mg twice a day, aspirin 81 mg once a day, calcitriol 0.25 mcg capsule orally once a day, cyclosporine eye drops twice a day, diltiazem 180 ER once a day, Cardura 2 mg 1 tablet twice a day, Flovent 110 mcg inhaler twice a day, hydroxychloroquine 200 mg daily, metoprolol 50 mg twice a day, sertraline 50 mg daily twice a day. Physical exam VS reviewed O2 sta 90% on RA with exertion General: She is alert and oriented x3. Does not look in any distress. HEENT: Atraumatic and normocephalic. PERRLA. Oral mucosa is moist. Neck: Supple. He does have a dressing on the right side. Chest: Clear to auscultation with good air entry. Heart: Regular rate and rhythm. S1 and S2 normal. No gallop or murmur. Abdomen: Soft, nontender. No masses. No hepatosplenomegaly. Positive bowel sounds. Extremities: No clubbing, cyanosis, or edema. No calf tenderness. Neurologic: Grossly intact. ALANIS/HECTOR Voice ID: [id number] Report ID: [id number] MTDD
== END 2018-11-08 12:41 | disposition home or self-care (01) | DRG 641 ==
LOC: ER 12:12 → ERHOLD 16:49 → 2ND 18:10 → 4TH 11-07 16:47
PROVIDERS: ADMIT Family Medicine; ATTEND Internal Medicine
PROC: 5A09357 Assistance with Respiratory Ventilation, Less than 24 Consecutive Hours, Continuous Positive Airway Pressure (ICD-10-PCS; principal; 2018-11-05)
DX: E87.70 Fluid overload, unspecified (principal); N18.4 Chronic kidney disease, stage 4 (severe); I25.10 Atherosclerotic heart disease of native coronary artery without angina pectoris; Z95.1 Presence of aortocoronary bypass graft; M32.9 Systemic lupus erythematosus, unspecified; Z95.2 Presence of prosthetic heart valve; F32.9 Major depressive disorder, single episode, unspecified; D63.1 Anemia in chronic kidney disease; I12.9 Hypertensive chronic kidney disease with stage 1 through stage 4 chronic kidney disease, or unspecified chronic kidney disease; R06.00 Dyspnea, unspecified
CPT/HCPCS: 36415; 71045; 71046; 71275; 80053; 81003; 81015; 83690; 83735; 83880; 84100; 84484; 85014; 85018; 85025; 85379; 85610; 85730; 87070; 87205; 87804; 93005; 94660; 94760; 96361; 96365; 96367; 96375; 99285; J0360; J0456; J0696; J1650; J1940; J2930; J7030; Q4081; Q9967

== ENCOUNTER 2019-02-20 20:11 | Observation (INO) | payer OTHER ==
--- OUTSIDE RECORDS SUMMARY | 2019-02-20 20:15 | XMS REPORT | Clinical Summary ---
:1950 Author Organization [facility] Address [address] [place] [address] Care Team Providers Name Role Phone Nghia [...] 0 Active eye as needed. Both eyes ib-2-dim-epa-fish oil-vit Take 2 capsules 0 Active D3 (FISH OIL-VIT D3) by mouth daily. 300-1,000-1,000 mg-mg-unit capsule Active Problems Problem Noted Date Lupus 09/23/2018 Encounters Date Type Specialty Care Team Description 02/03/2019 Documentation Transplant Heri, Emilia Chan (Scheduled urology consult visit with Dr. Faria on February 14, 2019. @ 1:45 pm. (Post MRB Request). Itinerary mailed and scanned in Media.) 12/26/2018 Documentation Transplant Nghia Cordova, ROSENDA outcome RN 12/21/2018 Documentation Transplant Pito Guillen Renal Txp Financial A Appvl 12/19/2018 Documentation Transplant Nghia Cordova MRB Presentation RN 12/11/2018 Lab Lab Melchor Ornelas Canceled MD Srinath (Scheduling Error) 11/25/2018 Orders Only Transplant Chiquita Telles, ESRD (end stage candy cutter machine disease) ([facility]) (Primary Dx) 11/23/2018 Telephone Transplant Eleni Hartley Appointment 11/23/2018 Telephone Transplant Eleni Hartley Appointment 11/18/2018 Documentation Transplant Zaid FransiscaJAY trejo 11/16/2018 Hospital Encounter Transplant Melchor Ornelas ESRD (end stage Osama, MD renal disease) Min Richardson ([facility]) MD Javier 11/13/2018 Lab Lab Melchor Ornelas ESRD (end stage Osama, MD renal disease) ([facility]) (Primary Dx) 11/12/2018 Lab Lab Melchor Ornelas ESRD (end stage Osama, MD renal disease) ([facility]) 11/10/2018 Lab Lab Melchor Ornelas ESRD (end stage Osama, MD renal disease) ([facility]) 11/10/2018 Hospital Encounter Transplant Melchor Ornelas ESRD (end stage Osama, MD renal disease) Min Richardson ([facility]) MD Javier 11/10/2018 Documentation Transplant Echo Powers Occult (09:20am Sp w/pt dtr Bertha & she will bring stool cards on Wednesday11/16/18. ) 11/09/2018 Hospital Encounter Radiology Podder, Hemangshu, ESRD (end stage MD renal disease) ([facility]) 11/09/2018 Hospital Encounter Radiology Podder, Hemangshu, ESRD (end stage MD renal disease) ([facility]) 11/09/2018 Hospital Encounter Transplant Podder, Hemangshu, ESRD (end stage MD renal disease) ([facility]) 11/09/2018 Hospital Encounter Transplant Min Richardson MD 11/09/2018 Hospital Encounter Transplant Min Richardson MD 11/09/2018 Hospital Encounter Transplant Min Richardson MD Guerrero, Alex 11/09/2018 Hospital Encounter Procedural Podder, Hemangshu, ESRD (end stage Cardiology MD renal disease) ([facility]) 10/31/2018 Documentation Transplant Heri, Consent Forms Rocio (Scanned Consent For Kidney Transplant Evaluation, Pre Txp Education & IWONA forms in Media. 10-27-2018) 10/31/2018 Telephone Transplant Eleni Hartley Appointment 10/27/2018 Hospital Encounter Transplant Melchor Ornelas ESRD (end stage MD Srinath renal disease) ([facility]) 10/27/2018 Hospital Encounter Transplant Lilly Pro, ESRD (end stage MD renal disease) ([facility]) (Primary Dx) 10/27/2018 Hospital Encounter Transplant Lilly Pro MD 10/27/2018 Hospital Encounter Transplant Lilly Pro MD 10/27/2018 Orders Only Transplant Nghia Cordova, ESRD (end stage candy cutter machine disease) ([facility]) (Primary Dx) 10/12/2018 Documentation Transplant Ciera Espinal 09/21/2018 Telephone Transplant Naima Kim Pre-emptive Kidney M, KALA Patient after 02/19/2018 Social History Tobacco Use Types Packs/Day Years Used Date Never Smoker Smokeless Tobacco: Never Used Sex Assigned at Date Recorded Not on file Job Start Date Occupation Industry Not on file Not on file Not on file Travel History Travel Start Travel End No recent travel history available. Last Filed Vital Signs Vital Sign Reading Time Taken Blood Pressure 136/65 10/27/2018 7:33 AM [employer]AL [employer] Pulse 64 10/27/2018 7:33 AM GENERAL MATCHER Temperature 35.8 C (96.4 F) 10/27/2018 7:31 AM GENERAL MATCHER Respiratory Rate 16 10/27/2018 7:33 AM GENERAL MATCHER Oxygen Saturation 94% 10/27/2018 7:33 AM GENERAL MATCHER Inhaled Oxygen Concentration - - Weight 79.8 kg (176 lb) 11/10/2018 3:15 PM GENERAL MATCHER Height 167.6 cm (5' 6") 11/10/2018 3:15 PM GENERAL MATCHER Body Mass Index 28.41 11/10/2018 3:15 PM GENERAL MATCHER Plan of Treatment Health Maintenance Due Date Last Done Comments BREAST CANCER SCREENING 2001 SHINGLES VACCINES (#1) 2001 65+ PNEUMOCOCCAL VACCINE (1 of 2 - 2016 PCV13) PNEUMOCOCCAL POLYSACCHARIDE VACCINE 2016 AGE 65 AND OVER INFLUENZA VACCINE 06/15/2019 COLON CANCER SCREENING 11/13/2028 11/13/2018, 11/12/2018, 11/10/2018 Procedures Procedure Name Priority Date/Time Associated Comments Diagnosis OCCULT BLOOD, STOOL Routine 11/13/2018 11:05 ESRD (end stage Results for this AM GENERAL MATCHER renal disease) procedure are in ([facility]) the results section. OCCULT BLOOD, STOOL Routine 11/12/2018 10:00 ESRD (end stage Results for this AM GENERAL MATCHER renal disease) procedure are in ([facility]) the results section. OCCULT BLOOD, STOOL Routine 11/10/2018 10:00 ESRD (end stage Results for this AM GENERAL MATCHER renal disease) procedure are in ([facility]) the results section. RADHA TITER Routine 11/10/2018 8:12 Results for this AM GENERAL MATCHER procedure are in the results section. C1Q CLASS 1 & 2 ANTIBODY Routine 11/10/2018 8:12 Results for this AM GENERAL MATCHER procedure are in the results section. HLA AUTOLOGOUS Routine 11/10/2018 8:12 Results for this CROSSMATCH AM GENERAL MATCHER procedure are in the results section. SINGLE ANTIGEN BEADS Routine 11/10/2018 8:12 Results for this AM GENERAL MATCHER procedure are in the results section. LOW RESOLUTION FULL Routine 11/10/2018 8:12 Results for this TYPING BY SSO AM GENERAL MATCHER procedure are in the results section. ESTIMATED GFR Routine 11/10/2018 8:12 Results for this AM GENERAL MATCHER procedure are in the results section. DNA AB SCREEN Routine 11/10/2018 8:12 ESRD (end stage Results for this AM GENERAL MATCHER renal disease) procedure are in ([facility]) the results section. CARDIOLIPIN ANTIBODIES Routine 11/10/2018 8:12 ESRD (end stage Results for this AM GENERAL MATCHER renal disease) procedure are in ([facility]) the results section. C4 COMPLEMENT COMPONENT Routine 11/10/2018 8:12 ESRD (end stage Results for this AM GENERAL MATCHER renal disease) procedure are in ([facility]) the results section. C3 COMPLEMENT COMPONENT Routine 11/10/2018 8:12 ESRD (end stage Results for this AM GENERAL MATCHER renal disease) procedure are in ([facility]) the results section. C1Q COMPLEMENT COMPONENT Routine 11/10/2018 8:12 ESRD (end stage Results for this AM GENERAL MATCHER renal disease) procedure are in ([facility]) the results section. HARTLEY ANTIBODY Routine 11/10/2018 8:12 ESRD (end stage Results for this AM GENERAL MATCHER renal disease) procedure are in ([facility]) the results section. GLOMERULAR BASEMENT Routine 11/10/2018 8:12 ESRD (end stage Results for this MEMBRANE AB IGG (IFA) AM GENERAL MATCHER renal disease) procedure are in ([facility]) the results section. RADHA Routine 11/10/2018 8:12 ESRD (end stage Results for this AM GENERAL MATCHER renal disease) procedure are in ([facility]) the results section. ABORH - TRANSPLANT Routine 11/10/2018 8:12 ESRD (end stage Results for this AM GENERAL MATCHER renal disease) procedure are in ([facility]) the results section. PARATHYROID HORMONE Routine 11/10/2018 8:12 ESRD (end stage Results for this AM GENERAL MATCHER renal disease) procedure are in ([facility]) the results section. HSV TYPE 1/2 COMBINED Routine 11/10/2018 8:12 ESRD (end stage Results for this AB, IGM AM GENERAL MATCHER renal disease) procedure are in ([facility]) the results section. HSV 1 & 2 GLYCOPROTEIN G Routine 11/10/2018 8:12 ESRD (end stage Results for this AB, IGG AM GENERAL MATCHER renal disease) procedure are in ([facility]) the results section. HERPES SIMPLEX VIRUS BY Routine 11/10/2018 8:12 ESRD (end stage Results for this PCR AM GENERAL MATCHER renal disease) procedure are in ([facility]) the results section. LAUREEN-WEBSTER VIRUS Routine 11/10/2018 8:12 ESRD (end stage Results for this ANTIBODY TEST AM GENERAL MATCHER renal disease) procedure are in ([facility]) the results section. CYTOMEGALOVIRUS AB, IGM Routine 11/10/2018 8:12 ESRD (end stage Results for this AM GENERAL MATCHER renal disease) procedure are in ([facility]) the results section. CYTOMEGALOVIRUS AB, IGG Routine 11/10/2018 8:12 ESRD (end stage Results for this AM GENERAL MATCHER renal disease) procedure are in ([facility]) the results section. HEMOGLOBIN A1C Routine 11/10/2018 8:12 ESRD (end stage Results for this AM GENERAL MATCHER renal disease) procedure are in ([facility]) the results section. LDH Routine 11/10/2018 8:12 ESRD (end stage Results for this AM GENERAL MATCHER renal disease) procedure are in ([facility]) the results section. PHOSPHORUS LEVEL Routine 11/10/2018 8:12 ESRD (end stage Results for this AM GENERAL MATCHER renal disease) procedure are in ([facility]) the results section. CREATININE LEVEL Routine 11/10/2018 8:12 ESRD (end stage Results for this AM GENERAL MATCHER renal disease) procedure are in ([facility]) the results section. FASTING GLUCOSE LEVEL Routine 11/10/2018 8:12 ESRD (end stage Results for this AM GENERAL MATCHER renal disease) procedure are in ([facility]) the results section. TRIGLYCERIDES Routine 11/10/2018 8:12 ESRD (end stage Results for this AM GENERAL MATCHER renal disease) procedure are in ([facility]) the results section. CHOLESTEROL Routine 11/10/2018 8:12 ESRD (end stage Results for this AM GENERAL MATCHER renal disease) procedure are in ([facility]) the results section. US RENAL Routine 11/09/2018 12:57 ESRD (end stage Results for this PM GENERAL MATCHER renal disease) procedure are in ([facility]) the results section. XR CHEST 2 VW Routine 11/09/2018 12:28 ESRD (end stage Results for this PM GENERAL MATCHER renal disease) procedure are in ([facility]) the results section. ECHOCARDIOGRAM 2D Routine 11/09/2018 9:00 ESRD (end stage Results for this COMPLETE W MMODE AM GENERAL MATCHER renal disease) procedure are in SPECTRAL COLOR DOPPLER ([facility]) the results ([id number]) section. ECG 12-LEAD Routine 11/09/2018 7:42 ESRD (end stage Results for this AM GENERAL MATCHER renal disease) procedure are in ([facility]) the results section. ESTIMATED GFR Routine 10/27/2018 11:15 Results for this AM GENERAL MATCHER procedure are in the results section. SERUM ELECTROPHORESIS Routine 10/27/2018 11:15 ESRD (end stage Results for this AM GENERAL MATCHER renal disease) procedure are in ([facility]) the results section. C-PEPTIDE Routine 10/27/2018 11:15 ESRD (end stage Results for this AM GENERAL MATCHER renal disease) procedure are in ([facility]) the results section. TB T-SPOT Routine 10/27/2018 11:15 ESRD (end stage Results for this AM GENERAL MATCHER renal disease) procedure are in ([facility]) the results section. NICOTINE AND Routine 10/27/2018 11:15 ESRD (end stage Results for this METABOLITES, SERUM AM GENERAL MATCHER renal disease) procedure are in ([facility]) the results section. URINE DRUGS OF ABUSE Routine 10/27/2018 11:15 ESRD (end stage Results for this SCREEN AM GENERAL MATCHER renal disease) procedure are in ([facility]) the results section. ABORH - TRANSPLANT Routine 10/27/2018 11:15 ESRD (end stage Results for this AM GENERAL MATCHER renal disease) procedure are in ([facility]) the results section. PARTIAL THROMBOPLASTIN Routine 10/27/2018 11:15 ESRD (end stage Results for this TIME (PTT) AM GENERAL MATCHER renal disease) procedure are in ([facility]) the results section. PROTHROMBIN TIME WITH Routine 10/27/2018 11:15 ESRD (end stage Results for this INR AM GENERAL MATCHER renal disease) procedure are in (HCC) the results section. HC COMPLETE BLD COUNT Routine 10/27/2018 11:15 ESRD (end stage Results for this W/AUTO DIFF AM GENERAL MATCHER renal disease) procedure are in (HCC) the results section. SYPHILIS TREPONEMAL IGG Routine 10/27/2018 11:15 ESRD (end stage Results for this AM GENERAL MATCHER renal disease) procedure are in (HCC) the results section. HEPATITIS C ANTIBODY Routine 10/27/2018 11:15 ESRD (end stage Results for this AM GENERAL MATCHER renal disease) procedure are in (HCC) the results section. HEPATITIS B SURFACE AB, Routine 10/27/2018 11:15 ESRD (end stage Results for this QUANTITATIVE AM GENERAL MATCHER renal disease) procedure are in ([facility]) the results section. HEPATITIS B SURFACE Routine 10/27/2018 11:15 ESRD (end stage Results for this ANTIGEN AM GENERAL MATCHER renal disease) procedure are in ([facility]) the results section. HEPATITIS B SURFACE Routine 10/27/2018 11:15 ESRD (end stage Results for this ANTIBODY AM GENERAL MATCHER renal disease) procedure are in ([facility]) the results section. HEPATITIS B CORE Routine 10/27/2018 11:15 ESRD (end stage Results for this ANTIBODY TOTAL AM GENERAL MATCHER renal disease) procedure are in ([facility]) the results section. HEPATITIS A ANTIBODY Routine 10/27/2018 11:15 ESRD (end stage Results for this TOTAL AM GENERAL MATCHER renal disease) procedure are in ([facility]) the results section. HIV AG/AB COMBINATION Routine 10/27/2018 11:15 ESRD (end stage Results for this AM GENERAL MATCHER renal disease) procedure are in ([facility]) the results section. URINALYSIS SCREEN AND Routine 10/27/2018 11:15 ESRD (end stage Results for this MICROSCOPY, WITH REFLEX AM GENERAL MATCHER renal disease) procedure are in TO CULTURE ([facility]) the results section. COMPREHENSIVE METABOLIC Routine 10/27/2018 11:15 ESRD (end stage Results for this PANEL AM GENERAL MATCHER renal disease) procedure are in ([facility]) the results section. URINE CULTURE Routine 10/27/2018 11:15 Results for this AM GENERAL MATCHER procedure are in the results section. after 02/19/2018 Results Occult blood, stool (11/13/2018 11:05 AM GENERAL MATCHER)Only the most recent of3 resultswithin the time period is included. Occult blood, stool Negative for occult blood. [facility] Comment: Specimen Information Specimen Source: Stool Specimen Site: Nonpreserved Specimen Stool - Nonpreserved Performing Organization Address City/[facility]/Zipcode Phone Number [facility] DEPARTMENT OF PATHOLOGY AND [address] [place] [phone] Hartley antibody (11/10/2018 8:12 AM GENERAL MATCHER) Hartley antibody <0.2 0.0 - 0.9 [facility] Hartley antibody interp Negative [facility] Comment: HOSPITAL Anti-Hartley antibodies occurs in 30-35% of systemic lupus erythematosus (SLE) cases, but is very specific for SLE. It may also present in mixed connective-tissue disease (MCTD). Specimen Serum Performing Organization Address City/[facility] Phone Number [facility] DEPARTMENT OF PATHOLOGY AND [address] [place] [phone] Low resolution full typing by SSO (11/10/2018 8:12 AM GENERAL MATCHER) [facility] DEPARTMENT OF PATHOLOGY AND GENOMIC MEDICINE Low resolution full typing See link below for PDF [facility] DEPARTMENT OF by SSO Lab Report PATHOLOGY AND GENOMIC MEDICINE Performing Organization Address [facility] Cent[facility]ode Phone Number [facility] DEPARTMENT OF PATHOLOGY AND [address] [place] [address] C1Q class 1 & 2 antibody (11/10/2018 8:12 AM GENERAL MATCHER) [facility] DEPARTMENT OF PATHOLOGY AND GENOMIC MEDICINE C1Q class 1 & 2 antibody See link below for PDF [facility] DEPARTMENT OF PATHOLOGY Lab Report AND GENOMIC MEDICINE Performing Organization Address City/[facility] Cent[facility]ode Phone Number [facility] DEPARTMENT OF PATHOLOGY AND [address] [place] [address] Estimated GFR (11/10/2018 8:12 AM GENERAL MATCHER)Only the most recent of2 resultswithin the time period is included. Estimated GFR 9 (A) mL/min/1.73 m2 [facility] Comment: HOSPITAL CatergoryUnitsInterpretation G1 >=90 Normal or high G2 60-89Mildly decreased [id number] to moderately decreased [id number] to severely decreased G4 15-29Severely decreased G5 <15Kidney failure The eGFR was calculated using the Chronic Kidney Disease Epidemiology Collaboration (CKD-EPI) equation. Interpretation is based on recommendations of the National Kidney Foundation-Kidney Disease Outcomes Quality Initiative (NKF-KDOQI) published in 2014. Specimen Plasma specimen Performing Organization Address City/State/[facility] Centercode Phone Number [facility] DEPARTMENT OF PATHOLOGY AND [address] [place] [address] HSV 1 & 2 glycoprotein G Ab, IgG (11/10/2018 8:12 AM GENERAL MATCHER) HSV 1 glycoprotein G Ab, Positive (A) Negative [facility] IgG Comment: HOSPITAL Positive results may indicate current or past HSV infection. For acute illness, viral PCR and IgM testing are recommended. Individuals infected with HSV may not exhibit detectable antibodies in cases of early infection. HSV 2 glycoprotein G Ab, NegativeComment: Negative [facility] IgG Negative: No IgG HOSPITAL antibodies to HSV2 detected. Specimen Serum Performing Organization Address [facility] [place] Phone Number [facility] DEPARTMENT OF PATHOLOGY AND [address] [place] [phone] Laureen-Webster virus antibody test (11/10/2018 8:12 AM GENERAL MATCHER) EBV Ab to viral capsid Ag, Positive (A) Negative [facility] IgG [facility] EBV Ab to viral capsid Ag, Negative Negative [facility] IgM [facility] EBV Ab to nuclear Ag, IgG Positive (A) Negative [facility] EBV Ab to early (D) Ag, IgG Positive (A) Negative [facility] Laureen-Webster virus antibody SEE COMMENT [facility] interpretation Comment: HOSPITAL Infection Status: Results may suggest EBV reactivation, although a recent primary EBV infection is not excluded. Specimen Serum Performing Organization Address City/[facility] Cent[facility]ode Phone Number [facility] DEPARTMENT OF PATHOLOGY AND [address] [place] [address] Single antigen beads (11/10/2018 8:12 AM GENERAL MATCHER) [facility] DEPARTMENT OF PATHOLOGY AND [facility] MEDICINE Single antigen beads See link below for PDF [facility] DEPARTMENT OF PATHOLOGY Lab Report AND GENOMIC MEDICINE Performing Organization Address City/[facility]/Zipcode Phone Number [facility] DEPARTMENT OF PATHOLOGY AND [address] [place] [address] HSV type 1/2 combined Ab, IgM (11/10/2018 8:12 AM GENERAL MATCHER) HSV 1/2 combined Ab, IgM 0.60 <=0.89 IV [facility] Comment: INTERPRETIVE INFORMATION: Herpes Simplex Virus Type 1 and/or 2 Antibodies, IgM by ANITA 0.89 IV or Less .......... Not Detected 0.90 - 1.09 IV ........... Indeterminate- Repeat testing in 10-14 days may be helpful. 1.10 IV or Greater ....... Detected-IgM antibody to HSV detected, which may indicate a current or recent infection. However, low levels of IgM antibodies may occasionally persist for more than 12 months post- infection. Performed by [email or web address], [address] [place] [phone] [email or web address], Camilo Braun MD - Lab. Director Specimen Serum Performing Organization Address [facility] Centercode Phone Number [facility] [address] [place] [address] [facility] [address] [place] [address] HLA autologous crossmatch, AHG (11/10/2018 8:12 AM GENERAL MATCHER) [facility] DEPARTMENT OF PATHOLOGY AND GENOMIC MEDICINE HLA autologous crossmatch See link below for PDF [facility] DEPARTMENT OF Lab Report PATHOLOGY AND GENOMIC MEDICINE Performing Organization Address City/[facility]/Zipcode Phone Number [facility] DEPARTMENT OF PATHOLOGY AND [address] [place] [address] Herpes simplex virus by PCR (11/10/2018 8:12 AM GENERAL MATCHER) Herpes virus, PCR Not-Detected Not-Detected [facility] Herpes virus, PCR See link below for PDF Lab [facility] ReportComment: Performing Organization Address City/State/Zipcode Phone Number [facility] DEPARTMENT OF PATHOLOGY AND [address] [place] [address] Glomerular basement membrane Ab IgG (IFA) (11/10/2018 8:12 AM GENERAL MATCHER) Glomerular basement Negative Negative [facility] membrane Ab Comment: INTERPRETIVE INFORMATION:GBM Ab, IgG (IFA) When present, IgG antibody to glomerular basement membrane (GBM) antigen detected by either indirect fluorescent antibody (IFA) or multiplex bead assay helps support a diagnosis of Goodpasture syndrome.However, the combined result of both assays performed during initial evaluation improves the diagnostic sensitivity for disease. A positive result in one or both assays should be confirmed by renal biopsy. Test developed and characteristics determined by [email or web address]. See Compliance Statement D: [employer]/ Performed by [email or web address], [address] [place] [phone] [email or web address], Camilo Braun MD - Lab. Director Specimen Serum Performing Organization Address City/[facility] Centercode Phone Number [facility] [address] [place] [address] [facility] [address] [place] [address] DNA Ab screen (11/10/2018 8:12 AM GENERAL MATCHER) DNA Ab screen Not Detected Not-Detected [facility] [place] Specimen Blood Performing Organization Address City/[facility] Cent[facility]ode Phone Number [facility] DEPARTMENT OF PATHOLOGY AND [address] [place] [phone] C1q complement component (11/10/2018 8:12 AM GENERAL MATCHER) C1q complement 215 109 - 242 ug/mL [facility] Comment: Performed by [email or web address], [address] [place] [phone] [email or web address], Camilo Braun MD - Lab. Director Specimen Blood Performing Organization Address City/[facility] Centercode Phone Number [facility] [address] [place] [address] [facility] [address] [place] [address] Cytomegalovirus Ab, IgM (11/10/2018 8:12 AM GENERAL MATCHER) Cytomegalovirus Ab, IgM Negative Negative [facility] Specimen Serum Performing Organization Address City/[facility] Centercode Phone Number [facility] DEPARTMENT OF PATHOLOGY AND [address] [place] [phone] RADHA titer (11/10/2018 8:12 AM GENERAL MATCHER) RADHA titer 1:320 (A) Not-Detected [facility] RADHA pattern Atypical speckled (A) Not-Detected [facility] Specimen Blood Performing Organization Address City/[facility]ode Phone Number [facility] DEPARTMENT OF PATHOLOGY AND [address] [place] [phone] [address] ABORh - transplant (11/10/2018 8:12 AM GENERAL MATCHER)Only the most recent of2 resultswithin the time period is included. ABO grouping O [facility] Rh type POS [facility] Specimen Blood Performing Organization Address City/[facility] Centercode Phone Number [facility] DEPARTMENT OF PATHOLOGY AND [address] [place] [phone] [address] Cytomegalovirus Ab, IgG (11/10/2018 8:12 AM GENERAL MATCHER) Cytomegalovirus Ab, IgG Positive (A) Negative [facility] Comment: Positive; IgG antibody to CMV detected which may indicate exposure to CMV infection. Specimen Serum Performing Organization Address [facility] Centercode Phone Number [facility] DEPARTMENT OF PATHOLOGY AND [address] [place] [phone] [address] Cardiolipin antibodies (11/10/2018 8:12 AM GENERAL MATCHER) Cardiolipin IgG 1 0 - 14 GPL [facility] Comment: Negative=<15 GPL Indeterminate=15-20 GPL Positive=>20 GPL Cardiolipin IgM 4 0 - 12 MPL [facility] Comment: Negative=<13 MPL Indeterminate=13-20 MPL Positive=>20 MPL Specimen Blood Performing Organization Address City/[facility]/Zipcode Phone Number [facility] DEPARTMENT OF PATHOLOGY AND [address] [place] [phone] [address] C3 complement component (11/10/2018 8:12 AM GENERAL MATCHER) C3 complement 92 90 - 180 mg/dL [facility] Specimen Plasma specimen Performing Organization Address City/[facility]ercode Phone Number [facility] DEPARTMENT OF PATHOLOGY AND [address] [place] [phone] [address] C4 complement component (11/10/2018 8:12 AM GENERAL MATCHER) C4 complement 40 10 - 40 mg/dL [facility] Specimen Plasma specimen Performing Organization Address City/[facility] Centercode Phone Number [facility] DEPARTMENT OF PATHOLOGY AND [address] [place] [phone] [address] RADHA (11/10/2018 8:12 AM GENERAL MATCHER) RADHA screen Positive (A) Negative [facility] Comment: Cytoplasmic staining was observed. Fluorescence in the cytoplasm may be seen in patients with polymyositis and dermatomyositis, primary biliary cirrhosis , scleroderma and systemic sclerosis, systemic lupus erythematosus, and autoimmune hepatitis. Clinical correlation is recommended Specimen Blood Performing Organization Address [facility] Centercode Phone Number [facility] DEPARTMENT OF PATHOLOGY AND [address] [place] [phone] [place] [phone] Triglycerides (11/10/2018 8:12 AM GENERAL MATCHER) Triglycerides 119 <150 mg/dL [facility] Specimen Plasma specimen Performing Organization Address City/[facility]ercode Phone Number [facility] DEPARTMENT OF PATHOLOGY AND [address] [place] [phone] [place] [phone] Phosphorus level (11/10/2018 8:12 AM GENERAL MATCHER) Phosphorus 4.6 (H) 2.4 - 4.5 mg/dL [facility] Specimen Plasma specimen Performing Organization Address City/[facility] Centercode Phone Number [facility] DEPARTMENT OF PATHOLOGY AND [address] [place] [phone] [address] Parathyroid hormone (11/10/2018 8:12 AM GENERAL MATCHER) PTH 339 (H) 15 - 65 pg/mL [facility] Specimen Blood Performing Organization Address [facility] Centercode Phone Number [facility] DEPARTMENT OF PATHOLOGY AND [address] [place] [phone] [address] LDH (11/10/2018 8:12 AM GENERAL MATCHER) LDH 334 (H) 87 - 225 U/L [facility] Specimen Plasma specimen Performing Organization Address City/[facility]ercode Phone Number [facility] DEPARTMENT OF PATHOLOGY AND [address] [place] [phone] Hemoglobin A1c (11/10/2018 8:12 AM GENERAL MATCHER) Hemoglobin A1C 5.5 4.0 - 5.6 % [facility] Comment: HbA1c cutoffs for diagnosing diabetes: 4.0% - 5.6%=normal 5.7% - 6.4%=increased risk for diabetes (prediabetes) >=6.5%=diabetes Goals for glycemic control (ADA 2016) < 7.0%Target for non adults with diabetes. More or less stringent targets may be appropriate for individual patients. <7.5% Target for Children and adolescents with type 1 diabetes. Specimen Blood Performing Organization Address [facility] Centercode Phone Number [facility] DEPARTMENT OF PATHOLOGY AND [address] [place] [phone] Fasting glucose level (11/10/2018 8:12 AM GENERAL MATCHER) Glucose, fasting 101 (H) 65 - 99 mg/dL [facility] Specimen Blood Performing Organization Address [facility] Phone Number [facility] DEPARTMENT OF PATHOLOGY AND [address] [place] [phone] Creatinine level (11/10/2018 8:12 AM GENERAL MATCHER) Creatinine 4.75 (H) 0.50 - 0.90 mg/dL [facility] Specimen Plasma specimen Performing Organization Address City/[facility]ercode Phone Number [facility] DEPARTMENT OF PATHOLOGY AND [address] [place] [phone] Cholesterol (11/10/2018 8:12 AM GENERAL MATCHER) Cholesterol 142 <200 mg/dL [facility] Specimen Plasma specimen Performing Organization Address City/[facility] Centercode Phone Number [facility] DEPARTMENT OF PATHOLOGY AND [address] [place], [place] [address] [address] US Renal (11/09/2018 12:57 PM GENERAL MATCHER) Narrative Performed At EXAMINATION:US RENAL RADIANT CLINICAL HISTORY:N18.6 End stage renal disease, Renal Transplant Evaluation COMPARISON:None. TECHNIQUE: Renal ultrasound performed utilizing grayscale/B mode, and color Doppler technique. FINDINGS: Right kidney: Measures 10.9 cm in length and 1.1 cm in cortical thickness. Increased echogenicity compatible with medical renal disease. 1.6 cm renal sinus cyst. No solid renal mass, calculus or hydronephrosis is identified. Left kidney: Measures 9.8 cm in length and 0.7 cm in cortical thickness. Increased echogenicity compatible with medical renal disease. 2 cm inferior pole complex cyst. Adjacent is an echogenic focus with shadowing, consistent with a renal stone. No solid renal mass or hydronephrosis is identified. Bladder: Unremarkable IMPRESSION: Medical renal disease. In the left kidney is a 2 cm inferior pole septated cyst versus 2 adjacent cysts. Nonobstructive left renal stone. Recommend CT renal mass protocol for further evaluation of the complex cyst. I personally reviewed the images and the resident's findings and agree with the final report. [id number] Procedure Note Hm Interface, Radiology Results Incoming - 11/09/2018 4:53 PM GENERAL MATCHER EXAMINATION: US RENAL CLINICAL HISTORY: N18.6 End stage renal disease, Renal Transplant Evaluation COMPARISON: None. TECHNIQUE: Renal ultrasound performed utilizing grayscale/B mode, and color Doppler technique. FINDINGS: Right kidney: Measures 10.9 cm in length and 1.1 cm in cortical thickness. Increased echogenicity compatible with medical renal disease. 1.6 cm renal sinus cyst. No solid renal mass, calculus or hydronephrosis is identified. Left kidney: Measures 9.8 cm in length and 0.7 cm in cortical thickness. Increased echogenicity compatible with medical renal disease. 2 cm inferior pole complex cyst. Adjacent is an echogenic focus with shadowing, consistent with a renal stone. No solid renal mass or hydronephrosis is identified. Bladder: Unremarkable IMPRESSION: Medical renal disease. In the left kidney is a 2 cm inferior pole septated cyst versus 2 adjacent cysts. Nonobstructive left renal stone. Recommend CT renal mass protocol for further evaluation of the complex cyst. I personally reviewed the images and the resident's findings and agree with the final report. [id number] Performing Organization Address [facility]/[employer] Phone Number [facility] [address] [place] [address] XR Chest 2 Vw (11/09/2018 12:28 PM GENERAL MATCHER) Narrative Performed At EXAMINATION:[facility] 2 [facility]: N18.6 End stage renal disease, Renal Transplant Evaluation COMPARISON:None IMPRESSION: Status post median sternotomy and CABG. Status post valvular surgery. Heart is borderline enlarged. Pulmonary vasculature is normal. There is mild right basilar atelectasis or scarring with mild blunting of right costophrenic angle which may be related to trace fluid or pleural thickening. Lungs are otherwise clear. No pneumothorax noted. Visualized osseous structures are intact. [id number] Procedure Note Interface, Radiology Results Incoming - 11/09/2018 12:50 PM GENERAL MATCHER EXAMINATION: XR CHEST 2 VW CLINICAL HISTORY: N18.6 End stage renal disease, Renal Transplant Evaluation COMPARISON: None IMPRESSION: Status post median sternotomy and CABG. Status post valvular surgery. Heart is borderline enlarged. Pulmonary vasculature is normal. There is mild right basilar atelectasis or scarring with mild blunting of right costophrenic angle which may be related to trace fluid or pleural thickening. Lungs are otherwise clear. No pneumothorax noted. Visualized osseous structures are intact. [facility]-[id number] Performing Organization Address [facility] Phone Number [facility] [address] [place] [address] Echocardiogram complete w contrast and 3D if needed (11/09/2018 9:00 AM GENERAL MATCHER) Narrative Performed At [facility] Echocardiography Report [address] [place] [address] Pat.Name:DMITRIY SIEGEL [facility].ID:[id number] .Date: 11/09/2018Refer.MD:LILLY PRO MD Exam Time: 7:57:00 AMStudy Type:Routine Echo Height:66inWeight: 176lb BSA: 1.9 v9OCWOvw:1950,68Y Sex: FEMALEBP:117/83 HR:66 bpm Sonogrphr: Clarisse Costa RDCS, RVLivan Pat. Stat.:OutpatientRoom:[facility] Study Status:Final Echo Event ID:[id number] Order ID:[id number] Reason for Study:Renal Transplant Evaluation History / Clinical:Coronary Artery Disease, Hyperlipidemia, Hypertension, CKD Procedures:2D Echo, Colorflow Doppler, Strain SUMMARY: LV size is normal. Estimated EF is 60-64%. Normal functioning surgical Prosthetic AV FINDINGS: LV: LV size is normal. There is mild concentric LV hypertrophy. LVEF is normal. Overall wall motion is normal (GLS -14.5%).Estimated EF is 60-64%. RV: RV size is normal. RV systolic function is normal. LA: LA volume is mildly enlarged. RA: RA size is normal. AO: Aortic root diameter is normal. ANTHONY: No pericardial effusion. AV: Bioprosthetic aortic valve. Estimated mean aortic valve mmHg. Normal prosthetic valve velocity and gradient.Surgical Prosthetic AV Doppler velocity index is 0.34(normal>0.25). MV: Thickened and/or calcified chordae. Mild mitral regurgitation. PV: No structural PV abnormalities noted. A trace of pulmonic regurgitation. TV: No structural TV abnormalities noted. Mild tricuspid regurgitation [place]: Hepatic vein pressure is normal, RA pressure < 5mmHg. Diastolicdysfunction Grade II (Moderate): Impaired relaxationwith elevated LV filling pressures. Other:Insufficient TR jet to estimate PA systolic pressure. MEASUREMENTS: 2D Parasternal Long Freer LVOT 2 cmLA Ds4.6 cm LVIDd4.9 cmIndex2.6 cm/m Ao An1.9 cm LVIDs3.4 cmAo Rtd 2.8 cm Index1.5 cm/m LV%fs 30.6 % LV Zfkx558.4 g(87-129) IVSd 1.2 cmLVM Yrbvv181.2 g/m2 LVPWd1 cmRWT0.6 LA Sng Plane LA Area 24 cm2(8.8-23.4) LA Vol73.2 ml Index38.5 ml/m LA LngAx 6.5 cm DOPPLER AV For Flow/SILVER AV pkVel 278.8 cm/s (100-170) AV AC/ET 0.3 AV mnVel 196.1 cm/[place] TVI61.1 cm AV pkPG 31.1 mmHgAVpkAcRt 8739.5 cm/s2 AV Mean G 18.7 mmHgAV TiSj152.3 cm/s2 AV AC104 msec (83-118) AV Area1.1 cm2(3-5) AV ET311 msec LVOT For Flow LVOT Area3.1 cm2 LVOT SV 65.6 ml LVOTpkVel 94.4 cm/sHR59.3 bpm LVOTpkPG 3.6 mmHgLVOT CO3.9 l/min LVOTmnPG 1.9 mmHgLVOT CI2 l/m/m2 LVOT TVI20.9 cm Signed 11/09/2018 09:34 AM Ash Jeong MD Procedure Note Interface, Radiology Results In - 11/09/2018 9:34 AM [facility] Echocardiography Report [address] [place] [address] Pat.Name: DMITRIY SIEGEL Pat.ID: [id number] .Date: 11/09/2018 Refer.MD: LILLY PRO MD Exam Time: 7:57:00 AM Study Type:Routine Echo Height: 66in Weight: 176lb BSA: 1.9 m2 Age: 13 1950,68Y Sex: FEMALE BP: 117/83 HR: 66 bpm Sonogrphr: Clarisse Costa RDCS, RVT Pat. Stat.:Outpatient Room: [facility] Study Status:Final Echo Event ID:[id number] Order ID: [id number] Reason for Study:Renal Transplant Evaluation History / Clinical:Coronary Artery Disease, Hyperlipidemia, Hypertension, CKD Procedures:2D Echo, Colorflow Doppler, Strain SUMMARY: LV size is normal. Estimated EF is 60-64%. Normal functioning surgical Prosthetic AV FINDINGS: LV: LV size is normal. There is mild concentric LV hypertrophy. LV EF is normal. Overall wall motion is normal (GLS -14.5%). Estimated EF is 60-64%. RV: RV size is normal. RV systolic function is normal. LA: LA volume is mildly enlarged. RA: RA size is normal. AO: Aortic root diameter is normal. ANTHONY: No pericardial effusion. AV: Bioprosthetic aortic valve. Estimated mean aortic valve gradient 18 mmHg. Normal prosthetic valve velocity and gradient. Surgical Prosthetic AV Doppler velocity index is 0.34 (normal>0.25). MV: Thickened and/or calcified chordae. Mild mitral regurgitation. PV: No structural PV abnormalities noted. A trace of pulmonic regurgitation. TV: No structural TV abnormalities noted. Mild tricuspid regurgitation [place]: Hepatic vein pressure is normal, RA pressure < 5mmHg. Diastolic dysfunction Grade II (Moderate): Impaired relaxation with elevated LV filling pressures. Other: Insufficient TR jet to estimate PA systolic pressure. MEASUREMENTS: 2D Parasternal Long Freer LVOT 2 cm LA Ds 4.6 cm LVIDd 4.9 cm Index 2.6 cm/m Ao An 1.9 cm LVIDs 3.4 cm Ao Rtd 2.8 cm Index 1.5 cm/m LV%fs 30.6 % LV Mass 226.4 g (87-129) IVSd 1.2 cm LVM Index 119.2 g/m2 LVPWd 1 cm RWT 0.6 LA Sng Plane LA Area 24 cm2 (8.8-23.4) LA Vol 73.2 ml Index 38.5 ml/m LA LngAx 6.5 cm DOPPLER AV For Flow/SILVER AV pkVel 278.8 cm/s (100-170) AV AC/ET 0.3 AV mnVel 196.1 cm/s AV TVI 61.1 cm AV pkPG 31.1 mmHg AVpkAcRt 8739.5 cm/s2 AV Mean G 18.7 mmHg AV DeRt 895.3 cm/s2 AV AC 104 msec (83-118) AV Area 1.1 cm2 (3-5) AV ET 311 msec LVOT For Flow LVOT Area 3.1 cm2 LVOT SV 65.6 ml LVOTpkVel 94.4 cm/s HR 59.3 bpm LVOTpkPG 3.6 mmHg LVOT CO 3.9 l/min LVOTmnPG 1.9 mmHg LVOT CI 2 l/m/m2 LVOT TVI 20.9 cm Signed 11/09/2018 09:34 AM Ash Jeong MD Performing Organization Address City/[facility] Phone Number [facility] [address] [place] [address] ECG 12 lead (11/09/2018 7:42 AM GENERAL MATCHER) Ventricular rate 59 [facility]USE Atrial rate 59 [facility] NV interval 188 [facility] QRSD interval 120 [facility] QT interval 512 [facility] M[facility] QTC interval 506 [facility] MUSE P axis 1 65 [facility] MUSE QRS axis 1 -26 [facility] MUSE T wave axis 100 [facility] EKG impression Sinus bradycardia-Left ventricular [facility] MUSE hypertrophy with QRS widening and repolarization abnormality-Abnormal ECG-No previous ECGs available- Narrative Performed At Performing Organization Address [facility] Phone Number [facility] MUSE [address] [place] [address] Syphilis treponemal IgG (10/27/2018 11:15 AM GENERAL MATCHER) Syphilis treponemal IgG Non-reactiveComment: Non-reactive [facility] Non-reactive: No HOSPITAL serological evidence of Syphilis infection Specimen Serum Performing Organization Address City/[facility]/Zipcode Phone Number [facility] DEPARTMENT OF PATHOLOGY AND [address] [place] [phone] [address] Urinalysis screen and microscopy, with reflex to culture (10/27/2018 11:15 AM GENERAL MATCHER) Specimen site Clean catch [facility] Color, UA Straw [facility] Appearance, UA Clear [facility] Specific gravity, UA 1.011 1.001 - 1.035 [facility] pH, UA 7.0 5.0 - 8.5 [facility] Protein, UA 3+ (A) Negative [facility] Glucose, UA 1+ (A) Negative [facility] Ketones, UA Negative Negative [facility] Bilirubin, UA Negative Negative [facility] Blood, UA Negative Negative [facility] Nitrite, UA Negative Negative [facility] Urobilinogen, UA <2.0 <2.0 [facility] Leukocyte esterase, UA Negative Negative [facility] Epithelial cells, UA <1 /HPF [facility] WBC, UA None seen 0 - 4 /HPF [facility] RBC, UA <1 0 - 5 /HPF [facility] Bacteria, UA Few None seen [facility] Yeast, UA None seen [facility] Yeast with pseudohyphae, UA None seen [facility] Specimen Urine Performing Organization Address City/[facility]/Zipcode Phone Number [facility] DEPARTMENT OF PATHOLOGY AND [address] [place] [phone] [address] HIV Ag/Ab combination (10/27/2018 11:15 AM GENERAL MATCHER) HIV Ag/Ab combination Non-reactive Non-reactive [facility] Specimen Blood Performing Organization Address City/[facility]/Zipcode Phone Number [facility] DEPARTMENT OF PATHOLOGY AND [address] [place] [phone] [address] TB T-SPOT (10/27/2018 11:15 AM GENERAL MATCHER) TB T-SPOT SEE NOTE TMHRI - GRAVISS [...] FOR USE WITH T=SPOT.TB TEST. Performed by: [facility] Molecular Tuberculosis Laboratory [facility] ([id number]) [place] [address] Specimen Blood Performing Organization Address City/[facility] Phone Number [facility] DEPARTMENT OF PATHOLOGY AND [address] [place] [address] REF LAB Nicotine and metabolites, serum (10/27/2018 11:15 AM GENERAL MATCHER) Nicotine <2.0 0.0 - 2.0 ng/mL [facility] Cotinine <2.0 0.0 - 2.0 ng/mL [facility] 1-WF-gwlfqtoq <5.0 0.0 - 5.0 ng/mL [facility] Comment: HOSPITAL This test was developed and its performance characteristics determined by the Department of Pathology and Genomic Medicine, [facility]. Serum nicotine and its metabolites cotinine and 4-QR-azrhypqj are tested by HPLC tandem mass spectrometry. It has not been cleared or approved by FDA. The laboratory is regulated under CLIA as qualified to perform high-complexity testing. This test is used for clinical purposes. It should not be regarded as investigational or for research. Specimen Blood Performing Organization Address City/[facility]/Zipcode Phone Number [facility] DEPARTMENT OF PATHOLOGY AND [address] [place] [phone] Hepatitis B surface Ab, quantitative (10/27/2018 11:15 AM GENERAL MATCHER) Hepatitis B surface Ab <3.10 IU/L [facility] REF [facility] Comment: The anti-HBs is less than 10 IU/L and is therefore negative. There is no evidence of recovery from hepatitis B infection or evidence of antibody response to HBV vaccination. An anti-HBs result greater than or equal to 10 IU/L implies immunity. For post-vaccination antibody testing guidelines for the general public refer to MMWR November 06, 2005/Vol. 54(No. 16);12-07, and for healthcare workers refer to MMWR November 03, 2013/Vol. 62(No. 10);12-03. Reference Interval: anti-HBs 9.99 IU/L or less ....... Negative 10.00 IU/L or greater .... Positive Results greater than 1,000.00 IU/L are reported as greater than 1,000.00 IU/L. This assay should not be used for blood donor screening, associated re-entry protocols, or for screening Human Cell, Tissues and Cellular and Tissue-Based Products (HCT/P). Performed by [email or web address], [address] [place] [phone] [email or web address], Camilo Braun MD - Lab. Director Specimen Serum Performing Organization Address [facility] Centercode Phone Number [facility] [address] [place] [address] [facility] REF LAB [address] [place] [phone] Hepatitis C antibody (10/27/2018 11:15 AM GENERAL MATCHER) Hepatitis C Ab Non-reactive Non-reactive [facility] [facility] Specimen Blood Performing Organization Address [facility] Centercode Phone Number [facility] DEPARTMENT OF PATHOLOGY AND [address] [place] [phone] Hepatitis A antibody total (10/27/2018 11:15 AM GENERAL MATCHER) Hepatitis A total Ab Non-reactive Non-reactive [facility] Specimen Blood Performing Organization Address [facility] Centercode Phone Number [facility] DEPARTMENT OF PATHOLOGY AND [address] [place] [phone] Hepatitis B core antibody total (10/27/2018 11:15 AM GENERAL MATCHER) Hepatitis B core total Ab Non-reactive Non-reactive [facility] Specimen Blood Performing Organization Address City/[facility] Centercode Phone Number [facility] DEPARTMENT OF PATHOLOGY AND [address] [place] [phone] [place] [phone] C-peptide (10/27/2018 11:15 AM GENERAL MATCHER) C-peptide 8.5 (H) 1.1 - 4.4 ng/mL [facility] Specimen Plasma specimen Performing Organization Address [facility] Centercode Phone Number [facility] DEPARTMENT OF PATHOLOGY AND [address] [place] [phone] [address] Urine drugs of abuse screen (10/27/2018 11:15 AM GENERAL MATCHER) Amphetamine screen, urine Negative [facility] Barbiturate screen, urine Negative [facility] Benzodiazepine screen, Negative [facility] Cannabinoid screen, urine Negative [facility] Cocaine screen, urine Negative [facility] Methadone metabolite Negative [facility] ([facility]), urine [facility] Opiates screen, urine Negative [facility] Oxycodone screen, urine Negative [facility] Phencyclidine screen, urine Negative [facility] Tricyclic screen, urine Negative [facility] Comment: HOSPITAL Drug screen minimum concentration of detectability Eagxdyvaimph3687 ng/mL Barbiturates 200 ng/mL Yyhpavkgmrngbai454 ng/mL Qzlkilo638 ng/mL Nokxvpeaf182 ng/mL Fvvstna530 ng/mL Hzatcskiy536 ng/mL Phencyclidine 25 ng/mL Bydxmmiewzhc69 ng/mL Wyetebyqam8885 ng/mL Negative test results indicates presumptive evidence of lack of clinically significant drug concentration in this urine specimen. Positive test results are presumptive evidence of clinically significant drug concentration in this urine specimen. Testing performed for medical purposes only. Specimen Urine Performing Organization Address City/[facility] Centercode Phone Number [facility] DEPARTMENT OF PATHOLOGY AND [address] [place] [phone] [address] Hepatitis B surface antibody (10/27/2018 11:15 AM GENERAL MATCHER) Hepatitis B surface Ab Non-reactive Non-reactive [facility] Specimen Blood Performing Organization Address City/[facility]/Zipcode Phone Number [facility] DEPARTMENT OF PATHOLOGY AND [address] [place] [phone] [place] [address] [place] [address] Hepatitis B surface antigen (10/27/2018 11:15 AM GENERAL MATCHER) Hepatitis B surface Ag Non-reactive Non-reactive [facility] Specimen Blood Performing Organization Address City/State/Zipcode Phone Number [facility] DEPARTMENT OF PATHOLOGY AND [address] [place] [phone] [address] Partial thromboplastin time, activated (10/27/2018 11:15 AM GENERAL MATCHER) PTT 30.7 23.0 - 36.0 sec [facility] Comment: PTT therapeutic range for unfractionated heparin is 61.0-112.0 seconds which corresponds to Anti-Xa 0.3-0.7 U/ml. Specimen Blood Performing Organization Address City/[facility] Centercode Phone Number [facility] DEPARTMENT OF PATHOLOGY AND [address] [place] [phone] [place] [phone] Prothrombin time with INR (10/27/2018 11:15 AM GENERAL MATCHER) Prothrombin time 14.1 11.5 - 14.5 sec [facility] INR 1.1 [facility] Comment: HOSPITAL The International Normalized Ratio (INR) is a therapeutic monitoring tool for patients who are stable on oral anticoagulant therapy. An INR of 2.0-3.0 is suggested for deep vein thrombosis/pulmonary embolism. Specimen Blood Performing Organization Address City/[facility] Phone Number [facility] DEPARTMENT OF PATHOLOGY AND [address] [place] [phone] [place] [phone] CBC with platelet and differential (10/27/2018 11:15 AM GENERAL MATCHER) WBC 5.04 4.50 - 11.00 k/uL [facility] RBC 3.02 (L) 4.20 - 5.50 m/uL [facility] HGB 9.0 (L) 12.0 - 16.0 g/dL [facility] HCT 28.1 (L) 37.0 - 47.0 % [facility] MCV 93.0 82.0 - 100.0 fL [facility] MCH 29.8 27.0 - 34.0 pg [facility] MCHC 32.0 31.0 - 37.0 g/dL [facility] RDW - SD 45.1 37.0 - 55.0 fL [facility] MPV 10.8 8.8 - 13.2 fL [facility] Platelet count 110 (L) 150 - 400 k/uL [facility] Nucleated RBC 0.00 /100 WBC [facility] Neutrophils 61.5 39.0 - 69.0 % [facility] Lymphocytes 23.6 (L) 25.0 - 45.0 % [facility] Monocytes 12.1 (H) 0.0 - 10.0 % [facility] Eosinophils 2.2 0.0 - 5.0 % [facility] Basophils 0.2 0.0 - 1.0 % [facility] Immature granulocytes 0.4Comment: "Immature 0.0 - 1.0 % [facility] (promyelocytes, myelocytes, metamyelocytes) Specimen Blood Performing Organization Address City/[facility] Centercomo Phone Number [facility] DEPARTMENT OF PATHOLOGY AND [address] [place] [address] Urine culture (10/27/2018 11:15 AM GENERAL MATCHER) Urine culture SEE COMMENTComment: Bacteriuria [facility] screen negative. Performing Organization Address City/[facility] Centercomo Phone Number [facility] DEPARTMENT OF PATHOLOGY AND [address] [place] [phone] Serum electrophoresis (10/27/2018 11:15 AM GENERAL MATCHER) Protein 6.4 6.3 - 8.3 g/dL [facility] Comment: HOSPITAL Tovey 4.6-7.0 g/dL 1 week 4.4-7.6 g/dL 7 months-1year5.1-7.3 g/dL 1-2 years5.6-7.5 g/dL >3 years6.0-8.0 g/dL 18-150 6.3-8.3 g/dL SPE albumin 3.99 (L) 4.00 - 5.30 g/dL [facility] SPE alpha 1 0.18 0.10 - 0.25 g/dL [facility] SPE alpha 2 0.81 0.58 - 0.84 g/dL [facility] SPE beta 0.62 0.50 - 1.10 g/dL [facility] SPE gamma 0.80 0.60 - 1.30 g/dL [facility] SPE extended See CommentComment: An [facility] interpretation essentially normal [facility] serum protein study. SPE interpretation See CommentComment: [facility] Melchor Cotton MD; [facility] Sami Barrow, PhD; Bret Gutiérrez MD, PhD Specimen Serum Performing Organization Address City/State/Zipcode Phone Number [facility] DEPARTMENT OF PATHOLOGY AND [address] [place] [phone] GENOMIC MEDICINE [facility] [address] [place] [phone] Comprehensive metabolic panel (10/27/2018 11:15 AM GENERAL MATCHER) Sodium 145 135 - 148 mEq/L [facility] Potassium 3.7 3.5 - 5.0 mEq/L [facility] Chloride 105 98 - 112 mEq/L [facility] CO2 25 24 - 31 mEq/L [facility] Anion gap 15@ANIO 7 - 15 mEq/L [facility] BUN 54 (H) 8 - 23 mg/dL [facility] Creatinine 3.73 (H) 0.50 - 0.90 mg/dL [facility] Glucose 106 (H) 65 - 99 mg/dL [facility] Calcium 9.2 8.8 - 10.2 mg/dL [facility] Protein 6.6 6.3 - 8.3 g/dL [facility] Comment: HOSPITAL Tovey 4.6-7.0 g/dL 1 week 4.4-7.6 g/dL 7 months-1year5.1-7.3 g/dL 1-2 years5.6-7.5 g/dL >3 years6.0-8.0 g/dL 18-150 6.3-8.3 g/dL Albumin 3.2 (L) 3.5 - 5.0 g/dL [facility] A/G ratio 0.9 0.7 - 3.8 [facility] Alkaline phosphatase 94 35 - 104 U/L [facility] AST 25 10 - 35 U/L [facility] ALT 11 5 - 50 U/L [facility] Total bilirubin <0.2 0.0 - 1.2 mg/dL [facility] Specimen Plasma specimen Performing Organization Address City/State/Zipcode Phone Number [facility] DEPARTMENT OF PATHOLOGY AND [address] [place] [address] GENOMIC MEDICINE [facility] [address] [place] [address] after 02/19/2018 Insurance Payer Benefit Plan / Group Subscriber ID Type Phone Address MEDICARE MEDICARE PART A AND B xxxxxxxxxxx Medicare [place], [place] [address] [place] [id number] [facility] [employer] [employer] Self 1950 [address] [place] [phone] Advance Directives Patient has advance care planning documents on file. For more information, please contact:[facility] [place] [address]
--- OUTSIDE RECORDS SUMMARY | 2019-02-20 20:16 | XMS REPORT | Clinical Summary ---
:1950 Author Organization [facility] Address [address] [place] [address] Care Team Providers Name Role Phone Pcp, No Primary Care Provider Unavailable Allergies No Known Allergies Medications Medication Sig Dispensed Refills Start End Status Date Date metoprolol (TOPROL-XL) Take 50 mg by 0 Active 50 MG 24 hr tablet mouth 2 (two) times daily. atorvastatin (LIPITOR) Take 20 mg by 0 Active 40 MG tablet mouth daily . cholecalciferol, Take 1,000 Units 0 Active vitamin D3, 1,000 unit by mouth daily. capsule doxazosin (CARDURA) 2 Take 2 mg by 0 Active MG tablet mouth 2 (two) times daily. sertraline HCl Take 25 mg by 0 Active (SERTRALINE ORAL) mouth daily . hydroxychloroquine Take by mouth 0 Active (PLAQUENIL) 200 mg daily. tablet cycloSPORINE Place 1 drop into 0 Active (RESTASIS) 0.05 % both eyes 2 (two) ophthalmic emulsion times daily. dilTIAZem (CARDIZEM Take 180 mg by 0 Active CD) 180 MG 24 hr mouth daily. capsule calcitriol (ROCALTROL) Take 0.25 mcg by 0 Active 0.25 MCG capsule mouth daily. aspirin 81 MG EC Take 81 mg by 0 Active tablet mouth daily. fluticasone (FLOVENT Inhale 1 puff by 0 Active HFA) 110 mcg/actuation mouth via inhaler inhaler 2 (two) times daily. sodium bicarbonate, 1 teaspoonful by 0 Active bulk, Powd Miscellaneous route daily. sodium bicarbonate 650 Take 1 tablet by 0 11/30/ Discontinued MG tablet mouth 2 (two) 019 times daily . Active Problems Patient Care Coordination Note [employer]- Jong Cooper [phone] Audit Associate- Miguel Guillen- [phone] [facility] [phone] Problem Noted Date Stage 4 chronic kidney disease 11/30/2018 Pre-transplant evaluation for chronic kidney disease 11/30/2018 Encounters Date Type Specialty Care Team Description 12/01/2018 Documentation Transplant Stacia Taylor 11/30/2018 Office Visit Transplant Camden Fonseca Stage 4 chronic kidney disease (HCC); MD Masood Pre-transplant evaluation for chronic kidney disease Cassie Lake RN 11/30/2018 Evaluation Transplant Camden Fonseca Left without seen MD Masood 11/30/2018 Evaluation Transplant Hayes Fonsecati Left without seen MD Masood 11/30/2018 Orders Only Transplant Camden Fonseca Pre-transplant evaluation for chronic kidney disease; Hepatology MD Masood Secondary hypertension; Systemic lupus erythematosus, unspecified SLE type, unspecified organ involvement status (HCC); Anemia of renal disease 11/30/2018 Orders Only Transplant Renzo Soto MD 11/21/2018 Abstract Transplant Cassie Lake RN 11/21/2018 Orders Only Transplant Cassie Lake RN Pre-transplant evaluation for chronic kidney disease (Primary Dx); Secondary hypertension; Systemic lupus erythematosus, unspecified SLE type, unspecified organ involvement status (HCC); Anemia of renal disease 11/21/2018 Telephone Transplant Cassie Lake RN Appointment 10/25/2018 Abstract Claire Laird 10/20/2018 Abstract Transplant Claire Dwyer after 02/19/2018 Family History Medical History Relation Name Comments Arthritis Father Heart disease Father Neuromuscular disorder Mother Nahomy Gehrig disease Relation Name Status Comments Father Mother Social History Tobacco Use Types Packs/Day Years Used Date Never Smoker Alcohol Use Drinks/Week oz/Week Comments Yes rarely used Sex Assigned at Date Recorded Not on file Job Start Date Occupation Industry Not on file Not on file Not on file Travel History Travel Start Travel End No recent travel history available. Last Filed Vital Signs Vital Sign Reading Time Taken Blood Pressure 147/77 11/30/2018 11:02 AM [employer] Pulse 54 11/30/2018 11:02 AM [employer] Temperature 36.3 C (97.4 F) 11/30/2018 11:02 AM [employer] Respiratory Rate 18 11/30/2018 11:02 AM [employer] Oxygen Saturation 96% 11/30/2018 11:02 AM [employer] Inhaled Oxygen Concentration - - Weight 76.4 kg (168 lb 6.4 oz) 11/30/2018 11:02 AM [employer] Height 167.6 cm (5' 6") 11/30/2018 11:02 AM [employer] Body Mass Index 27.18 11/30/2018 11:02 AM [employer] Plan of Treatment Not on file Procedures Procedure Name Priority Date/Time Associated Comments Diagnosis TRANSFUSION SERVICE 12/01/2018 6:04 REPORT - SCAN PM [employer] CBC W/PLT COUNT & AUTO Routine 11/30/2018 8:10 Pre-transplant Results for this DIFFERENTIAL AM [employer] evaluation for procedure are in chronic kidney the results disease section. Secondary hypertension Systemic lupus erythematosus, unspecified SLE type, unspecified organ involvement status (HCC) Anemia of renal disease DIRECT AHG (CANELO)/DIRECT Routine 11/30/2018 8:10 Pre-transplant Results for this NICHOLE AM [employer] evaluation for procedure are in chronic kidney the results disease section. Secondary hypertension Systemic lupus erythematosus, unspecified SLE type, unspecified organ involvement status (HCC) Anemia of renal disease AB SPECIFICITY CLASS II Routine 11/30/2018 8:10 Pre-transplant Results for this AM [employer] evaluation for procedure are in chronic kidney the results disease section. Secondary hypertension Systemic lupus erythematosus, unspecified SLE type, unspecified organ involvement status (HCC) Anemia of renal disease EQUAL MIX, NORMAL Routine 11/30/2018 8:10 Pre-transplant Results for this PLASMA AM [employer] evaluation for procedure are in chronic kidney the results disease section. Secondary hypertension Systemic lupus erythematosus, unspecified SLE type, unspecified organ involvement status (HCC) Anemia of renal disease DOUBLE-STRANDED DNA Routine 11/30/2018 8:10 Pre-transplant Results for this (DSDNA) ANTIBODY AM [employer] evaluation for procedure are in chronic kidney the results disease section. Secondary hypertension Systemic lupus erythematosus, unspecified SLE type, unspecified organ involvement status (HCC) Anemia of renal disease COMPLEMENT COMPONENT C4 Routine 11/30/2018 8:10 Pre-transplant Results for this AM [employer] evaluation for procedure are in chronic kidney the results disease section. Secondary hypertension Systemic lupus erythematosus, unspecified SLE type, unspecified organ involvement status (HCC) Anemia of renal disease COMPLEMENT COMPONENT C3 Routine 11/30/2018 8:10 Pre-transplant Results for this AM [employer] evaluation for procedure are in chronic kidney the results disease section. Secondary hypertension Systemic lupus erythematosus, unspecified SLE type, unspecified organ involvement status (HCC) Anemia of renal disease CARDIOLIPIN ANTIBODIES, Routine 11/30/2018 8:10 Pre-transplant Results for this IGG AND IGM AM [employer] evaluation for procedure are in chronic kidney the results disease section. Secondary hypertension Systemic lupus erythematosus, unspecified SLE type, unspecified organ involvement status (HCC) Anemia of renal disease FLOW PRA CLASS II WITH Routine 11/30/2018 8:10 Pre-transplant Results for this REFLEX TO ANTIBODY AM [employer] evaluation for procedure are in SPECIFICITY chronic kidney the results disease section. Secondary hypertension Systemic lupus erythematosus, unspecified SLE type, unspecified organ involvement status (HCC) Anemia of renal disease FLOW PRA CLASS I WITH Routine 11/30/2018 8:10 Pre-transplant Results for this REFLEX TO ANTIBODY AM [employer] evaluation for procedure are in SPECIFICITY chronic kidney the results disease section. Secondary hypertension Systemic lupus erythematosus, unspecified SLE type, unspecified organ involvement status (HCC) Anemia of renal disease HLA TYPING CII Routine 11/30/2018 8:10 Pre-transplant Results for this AM [employer] evaluation for procedure are in chronic kidney the results disease section. Secondary hypertension Systemic lupus erythematosus, unspecified SLE type, unspecified organ involvement status (HCC) Anemia of renal disease HLA TYPING CI Routine 11/30/2018 8:10 Pre-transplant Results for this AM [employer] evaluation for procedure are in chronic kidney the results disease section. Secondary hypertension Systemic lupus erythematosus, unspecified SLE type, unspecified organ involvement status (HCC) Anemia of renal disease HEMOGLOBIN A1C Routine 11/30/2018 8:10 Pre-transplant Results for this AM [employer] evaluation for procedure are in chronic kidney the results disease section. Secondary hypertension Systemic lupus erythematosus, unspecified SLE type, unspecified organ involvement status (HCC) Anemia of renal disease VARICELLA ZOSTER Routine 11/30/2018 8:10 Pre-transplant Results for this ANTIBODY, IGG AM [employer] evaluation for procedure are in chronic kidney the results disease section. Secondary hypertension Systemic lupus erythematosus, unspecified SLE type, unspecified organ involvement status (HCC) Anemia of renal disease URINALYSIS W/ Routine 11/30/2018 8:10 Pre-transplant Results for this MICROSCOPIC AM [employer] evaluation for procedure are in chronic kidney the results disease section. Secondary hypertension Systemic lupus erythematosus, unspecified SLE type, unspecified organ involvement status (HCC) Anemia of renal disease URIC ACID Routine 11/30/2018 8:10 Pre-transplant Results for this AM [employer] evaluation for procedure are in chronic kidney the results disease section. Secondary hypertension Systemic lupus erythematosus, unspecified SLE type, unspecified organ involvement status (HCC) Anemia of renal disease T SPOT TB Routine 11/30/2018 8:10 Pre-transplant Results for this AM [employer] evaluation for procedure are in chronic kidney the results disease section. Secondary hypertension Systemic lupus erythematosus, unspecified SLE type, unspecified organ involvement status (HCC) Anemia of renal disease RPR Routine 11/30/2018 8:10 Pre-transplant Results for this AM [employer] evaluation for procedure are in chronic kidney the results disease section. Secondary hypertension Systemic lupus erythematosus, unspecified SLE type, unspecified organ involvement status (HCC) Anemia of renal disease PT/APTT Routine 11/30/2018 8:10 Pre-transplant Results for this AM [employer] evaluation for procedure are in chronic kidney the results disease section. Secondary hypertension Systemic lupus erythematosus, unspecified SLE type, unspecified organ involvement status (HCC) Anemia of renal disease PTH, INTACT Routine 11/30/2018 8:10 Pre-transplant Results for this AM [employer] evaluation for procedure are in chronic kidney the results disease section. Secondary hypertension Systemic lupus erythematosus, unspecified SLE type, unspecified organ involvement status (HCC) Anemia of renal disease PHOSPHORUS Routine 11/30/2018 8:10 Pre-transplant Results for this AM [employer] evaluation for procedure are in chronic kidney the results disease section. Secondary hypertension Systemic lupus erythematosus, unspecified SLE type, unspecified organ involvement status (HCC) Anemia of renal disease LACTATE DEHYDROGENASE Routine 11/30/2018 8:10 Pre-transplant Results for this (LDH) AM [employer] evaluation for procedure are in chronic kidney the results disease section. Secondary hypertension Systemic lupus erythematosus, unspecified SLE type, unspecified organ involvement status (HCC) Anemia of renal disease HIV-1 ANTIGEN WITH Routine 11/30/2018 8:10 Pre-transplant Results for this HIV-1/2 ANTIBODY AM [employer] evaluation for procedure are in chronic kidney the results disease section. Secondary hypertension Systemic lupus erythematosus, unspecified SLE type, unspecified organ involvement status (HCC) Anemia of renal disease HEPATITIS C ANTIBODY Routine 11/30/2018 8:10 Pre-transplant Results for this AM [employer] evaluation for procedure are in chronic kidney the results disease section. Secondary hypertension Systemic lupus erythematosus, unspecified SLE type, unspecified organ involvement status (HCC) Anemia of renal disease HEPATITIS B CORE Routine 11/30/2018 8:10 Pre-transplant Results for this ANTIBODY, IGM AM [employer] evaluation for procedure are in chronic kidney the results disease section. Secondary hypertension Systemic lupus erythematosus, unspecified SLE type, unspecified organ involvement status (HCC) Anemia of renal disease HEPATITIS B SURFACE Routine 11/30/2018 8:10 Pre-transplant Results for this ANTIGEN AM [employer] evaluation for procedure are in chronic kidney the results disease section. Secondary hypertension Systemic lupus erythematosus, unspecified SLE type, unspecified organ involvement status (HCC) Anemia of renal disease HEPATITIS B SURFACE Routine 11/30/2018 8:10 Pre-transplant Results for this ANTIBODY AM [employer] evaluation for procedure are in chronic kidney the results disease section. Secondary hypertension Systemic lupus erythematosus, unspecified SLE type, unspecified organ involvement status (HCC) Anemia of renal disease GAMMA GLUTAMYL Routine 11/30/2018 8:10 Pre-transplant Results for this TRANSFERASE (GGT) AM [employer] evaluation for procedure are in chronic kidney the results disease section. Secondary hypertension Systemic lupus erythematosus, unspecified SLE type, unspecified organ involvement status (HCC) Anemia of renal disease EBV ANTIBODY, IGM Routine 11/30/2018 8:10 Pre-transplant Results for this AM [employer] evaluation for procedure are in chronic kidney the results disease section. Secondary hypertension Systemic lupus erythematosus, unspecified SLE type, unspecified organ involvement status (HCC) Anemia of renal disease EBV ANTIBODY, IGG Routine 11/30/2018 8:10 Pre-transplant Results for this AM [employer] evaluation for procedure are in chronic kidney the results disease section. Secondary hypertension Systemic lupus erythematosus, unspecified SLE type, unspecified organ involvement status (HCC) Anemia of renal disease COMPREHENSIVE METABOLIC Routine 11/30/2018 8:10 Pre-transplant Results for this PANEL AM [employer] evaluation for procedure are in chronic kidney the results disease section. Secondary hypertension Systemic lupus erythematosus, unspecified SLE type, unspecified organ involvement status (HCC) Anemia of renal disease CYTOMEGALOVIRUS Routine 11/30/2018 8:10 Pre-transplant Results for this ANTIBODY, IGM AM [employer] evaluation for procedure are in chronic kidney the results disease section. Secondary hypertension Systemic lupus erythematosus, unspecified SLE type, unspecified organ involvement status (HCC) Anemia of renal disease CYTOMEGALOVIRUS Routine 11/30/2018 8:10 Pre-transplant Results for this ANTIBODY, IGG AM [employer] evaluation for procedure are in chronic kidney the results disease section. Secondary hypertension Systemic lupus erythematosus, unspecified SLE type, unspecified organ involvement status (HCC) Anemia of renal disease CBC W/PLT COUNT & AUTO Routine 11/30/2018 8:10 Pre-transplant Results for this DIFFERENTIAL AM [employer] evaluation for procedure are in chronic kidney the results disease section. Secondary hypertension Systemic lupus erythematosus, unspecified SLE type, unspecified organ involvement status (HCC) Anemia of renal disease URINE CULTURE Routine 11/30/2018 8:10 Pre-transplant Results for this AM [employer] evaluation for procedure are in chronic kidney the results disease section. Secondary hypertension Systemic lupus erythematosus, unspecified SLE type, unspecified organ involvement status (HCC) Anemia of renal disease BLOOD TYPING, AUTOMATED Routine 11/30/2018 8:02 Pre-transplant Results for this AM [employer] evaluation for procedure are in chronic kidney the results disease section. Secondary hypertension Systemic lupus erythematosus, unspecified SLE type, unspecified organ involvement status (HCC) Anemia of renal disease 2D ECHO W/ DOPPLER Routine 11/09/2018 (CW/PW/COLOR) ECG 12-LEAD Routine 11/09/2018 MAMMO SCREENING Routine 09/22/2018 BILATERAL US RETROPERITONEAL Routine 08/16/2018 LIMITED after 02/19/2018 Results TRANSFUSION SERVICE REPORT - SCAN (12/01/2018 6:04 PM [employer]) Narrative Performed At HLA TYPING CII (11/30/2018 8:10 AM [employer]) HLA-DR AG1 9 [facility] HLA-DR AG2 13 [facility] HLA-DR AG3-1 [facility] HLA-DR AG3-2 52 [facility] HLA-DR AG4-1 53 [facility] HLA-DR AG4-2 [facility] HLA-DR AG5-1 [facility] HLA-DR AG5-2 [facility] HLA-DQA1 AG 1-1 03 [facility] HLA-DQA1 AG 1-2 01 [facility] HLA-DQB1 AG 1-1 2 [facility] HLA-DQB1 AG 1-2 6 [facility] HLA-DPA1 AG 1-1 02 [facility] HLA-DPA1 AG 1-2 01 [facility] HLA-DPB1 AG 1-1 13:01 [facility] HLA-DPB1 AG 1-2 04:01 [facility] HLA-AG Notes [facility] HLA-AG Report Comments [facility] Specimen Blood Narrative Performed At Disclaimer: [facility] This test was developed and its performance characteristics determined by the [facility]. It has not been cleared or approved by the U.S. Food and Drug Administration. The FDA has determined that such clearance or approval is not necessary. This test is used for clinical purposes. It should not be regarded as investigational or for research. This laboratory is certified under the Clinical Laboratory Improvement Amendments of 1988 (CLIA-88) as qualified to perform high complexity clinical laboratory testing. Performing Organization Address City/[facility] Phone Number [facility] ONE Fabrice Gutiérrez, MS: [place] [address] [id number], CLIA#[id number] CAP#[id number] UNOS#[id number] HLA TYPING CI (11/30/2018 8:10 AM [employer]) HLA-A AG1 23 [facility] HLA-A AG2 68 [facility] HLA-B AG1 63 [facility] HLA-B AG2 53 [facility] HLA-C AG1 7 [facility] HLA-C AG2 6 [facility] HLA-B BW1 4 [facility] HLA-B BW2 4 [facility] HLA-AG Notes [facility] HLA-AG Report Comments [facility] Specimen Blood Narrative Performed At Disclaimer: [facility] This test was developed and its performance characteristics determined by the [facility]. It has not been cleared or approved by the U.S. Food and Drug Administration. The FDA has determined that such clearance or approval is not necessary. This test is used for clinical purposes. It should not be regarded as investigational or for research. This laboratory is certified under the Clinical Laboratory Improvement Amendments of 1988 (CLIA-88) as qualified to perform high complexity clinical laboratory testing. Performing Organization Address City/[facility] Phone Number [facility] ONE Fabrice Gutiérrez, MS: [place] [address] [id number], CLIA#[id number] CAP#[id number] UNOS#[id number] FLOW PRA CLASS II WITH REFLEX TO ANTIBODY SPECIFICITY (11/30/2018 8:10 AM [employer]) Flow Class II Percent Positive 85 [facility] Flow Class Report Comments [facility] Specimen Blood Narrative Performed At Disclaimer: [facility] This test was developed and its performance characteristics determined by the [facility]. It has not been cleared or approved by the U.S. Food and Drug Administration. The FDA has determined that such clearance or approval is not necessary. This test is used for clinical purposes. It should not be regarded as investigational or for research. This laboratory is certified under the Clinical Laboratory Improvement Amendments of 1988 (CLIA-88) as qualified to perform high complexity clinical laboratory testing. Performing Organization Address [facility] Phone Number [facility] Fabrice Gutiérrez, MS: [place] [address] [id number], CLIA#[id number] CAP#[id number] UNOS#[id number] FLOW PRA CLASS I WITH REFLEX TO ANTIBODY SPECIFICITY (11/30/2018 8:10 AM [employer]) Flow Class I Percent Positive 0 [facility] Flow Class Report Comments [facility] Specimen Blood Narrative Performed At Disclaimer: [facility] This test was developed and its performance characteristics determined by the [facility]. It has not been cleared or approved by the U.S. Food and Drug Administration. The FDA has determined that such clearance or approval is not necessary. This test is used for clinical purposes. It should not be regarded as investigational or for research. This laboratory is certified under the Clinical Laboratory Improvement Amendments of 1988 (CLIA-88) as qualified to perform high complexity clinical laboratory testing. Performing Organization Address City/[facility] Phone Number [facility] Fabrice Gutiérrez, MS: [place] [address] [id number], CLIA#[id number] CAP#[id number] UNOS#[id number] AB SPECIFICITY CLASS II (11/30/2018 8:10 AM [employer]) AB Specificity Class II DP:19 [facility] AB Specificity Titr Class Report MFIs > 4000 [facility] Specimen Blood Narrative Performed At Disclaimer: [facility] This test was developed and its performance characteristics determined by the [facility]. It has not been cleared or approved by the U.S. Food and Drug Administration. The FDA has determined that such clearance or approval is not necessary. This test is used for clinical purposes. It should not be regarded as investigational or for research. This laboratory is certified under the Clinical Laboratory Improvement Amendments of 1988 (CLIA-88) as qualified to perform high complexity clinical laboratory testing. Performing Organization Address [facility] Phone Number [facility] ONE Fabrice Gutiérrez, MS: [place] [address] [id number], CLIA#[id number] CAP#[id number] UNOS#[id number] T Spot TB (11/30/2018 8:10 AM [employer]) T-Spot TB Negative [facility] Neg Ctrl Spot Count 0 [facility] Panel A Spot 0 [facility] Panel B Spot 0 [facility] Pos Ctrl Spot Ct 0 [facility] Scan Result [facility] Specimen Blood Narrative Performed At Performing Organization Address City/State/Zipcode Phone Number [facility] [address] [place] [address] [facility] PT/aPTT (11/30/2018 8:10 AM SECONDARY [employer] UP MAN) Protime 13.9 11.7 - 14.[address] [facility] INR 1.1 <=5.9 [facility] PTT 30.4 22.5 - 36.[address] [facility] Specimen Blood Narrative Performed At RECOMMENDED COUMADIN/WARFARIN INR THERAPY [facility] RANGES STANDARD DOSE: 2.0 - 3.0 Includes: PROPHYLAXIS for venous thrombosis, systemic embolization; TREATMENT for venous thrombosis and/or pulmonary embolus. HIGH RISK: Target INR is 2.5-3.5 for patients with mechanical heart valves. Performing Organization Address City/[facility] Phone Number [address] [address] CENTER HIV-1 Antigen with HIV-1/2 Antibody (11/30/2018 8:10 AM SECONDARY SET UP MAN) HIV-1 Antigen with HIV 1&2 NON-REACTIVE Nonreactive [facility] Specimen Blood Performing Organization Address City/[facility]/Zipcode Phone Number [address] [address] [phone] CENTER 1:1 MIXING STUDY, NON-INCUBATED (11/30/2018 8:10 AM SECONDARY SET UP MAN) Protime 13.8 11.7 - 14.[address] [facility] PTT 31.6 22.5 - 36.[address] [facility] PT 1/1 Mix 13.5 11.7 - 14.[address] [facility] PTT 11/15 Mix 31.9 22.5 - 36.[address] [facility] Specimen Blood Performing Organization Address City/State/Zipcode Phone Number [facility] [address] [place] [address] CENTER CBC with platelet count + automated diff (11/30/2018 8:10 AM SECONDARY SET UP MAN) WBC 6.3 3.5 - 10.5 K/L [facility] RBC 3.17 (L) 3.93 - 5.22 M/L [facility] Hemoglobin 9.6 (L) 11.2 - 15.7 GM/DL [facility] Hematocrit 29.9 (L) 34.1 - 44.9 % [facility] MCV 94.3 79.4 - 94.[address] [facility] MCH 30.3 25.6 - 32.[address] [facility] MCHC 32.1 (L) 32.2 - 35.5 GM/DL [facility] RDW 12.6 11.7 - 14.4 % [facility] Platelets 128 (L) 150 - 450 K/CU MM [facility] MPV 11.1 9.4 - 12.[address] [facility] nRBC 0 0 - 0 /[address] [facility] % Neutros 71 % [facility] % Lymphs 19 % [facility] % Monos 8 % [facility] % Eos 2 % [facility] % Baso 0 % [facility] # Neutros 4.50 1.56 - 6.13 K/L [facility] # Lymphs 1.20 1.18 - 3.74 K/L [facility] # Monos 0.51 (H) 0.24 - 0.36 K/L [facility] # Eos 0.10 0.04 - 0.36 K/L [facility] # Baso 0.01 0.01 - 0.08 K/L [facility] Immature Granulocytes-Relative 0 0 - 1 % [facility] Specimen Blood Performing Organization Address City/State/[facility] Phone Number [address] [address] [place] Hepatitis C Antibody (11/30/2018 8:10 AM SECONDARY SET UP MAN) Hepatitis C Ab NON-REACTIVE Nonreactive [facility] Specimen Blood Performing Organization Address [facility] Phone Number [address] [address] [phone] [place] Cytomegalovirus antibody, IgM (11/30/2018 8:10 AM SECONDARY SET UP MAN) CMV IGM Negative Negative, Equivocal [facility] Specimen Blood Narrative Performed At CMV IgM Result Interpretation: [facility] </=0.8 Al Negative 0.9-1.0 Al Equivocal >/=1.1 Al Positive Performing Organization Address [facility] Phone Number [address] [address] [phone] [place] Double-Stranded DNA (dsDNA) Antibody (11/30/2018 8:10 AM SECONDARY SET UP MAN) ds DNA Ab Negative [facility] Specimen Blood Performing Organization Address City/[facility] Phone Number [address] [address] [phone] [place] Hepatitis B core antibody, IgM (11/30/2018 8:10 AM SECONDARY SET UP MAN) Hep B C IgM NON-REACTIVE Nonreactive [facility] Specimen Blood Performing Organization Address City/State/Zipcode Phone Number [address] [address] [place] EBV-VCA antibody, IgM (11/30/2018 8:10 AM SECONDARY SET UP MAN) LAUREEN WEBSTER VIRAL CAPSID Negative Negative, Equivocal [facility] Specimen Blood Narrative Performed At Laureen Webster Viral Capsid Antigen IgM Result [facility] Interpretation: </=0.8 Al Negative 0.9-1.0 Al Equivocal >/=1.1 Al Positive Performing Organization Address City/[facility] Phone Number [address] [address] [place] EBV-VCA antibody, IgG (11/30/2018 8:10 AM SECONDARY SET UP MAN) LAUREEN WEBSTER VIRAL CAPSID Positive (A) Negative, Equivocal [facility] Specimen Blood Narrative Performed At Laureen [place] Viral Capsid Antigen IgG Result [facility] Interpretation: </=0.8 Al Negative 0.9-1.0 Al Equivocal >/=1.1 Al Positive Performing Organization Address [facility] Phone Number [address] [address] [place] RPR (11/30/2018 8:10 AM SECONDARY SET UP MAN) RPR Nonreactive Nonreactive [facility] Specimen Blood Performing Organization Address City/[facility] Phone Number [address] [address] [phone] [place] Hepatitis B surface antibody (11/30/2018 8:10 AM SECONDARY SET UP MAN) Hep B S Ab <8.0 <8.0 mIU/mL [facility] Specimen Blood Performing Organization Address City/[facility]/Zipcode Phone Number [address] [address] [place] Hepatitis B surface antigen (11/30/2018 8:10 AM SECONDARY SET UP MAN) hepatitis B Surface Ag NON-REACTIVE Nonreactive [facility] Specimen Blood Performing Organization Address [facility] Phone Number [address] [address] [place] Cytomegalovirus antibody, IgG (11/30/2018 8:10 AM SECONDARY SET UP MAN) CYTOMEGALOVIRUS, IGG Positive (A) Negative, Equivocal [facility] Specimen Blood Narrative Performed At CMV IgG Result Interpretation: [facility] </=0.8 Al Negative 0.9-1.0 Al Equivocal >/=1.1 AlPositive Performing Organization Address [facility] Phone Number [address] [address] [phone] [place] Cardiolipin Antibodies, IgG and IgM (11/30/2018 8:10 AM SECONDARY SET UP MAN) Anticardiolipin IgG <1.[address] [facility] Anticardiolipin IgM <0.[address] [facility] Specimen Blood Narrative Performed At Anticardiolipin IgG Result Interpretation: [facility] <20.0 GPL Normal >/=20.0 GPL Positive Anticardiolipin IgM Result Interpretation: <20.0 MPL Normal >/=20.0 MPL Positive Performing Organization Address [facility] Phone Number [address] [address] [place] Urinalysis, Routine (11/30/2018 8:10 AM SECONDARY SET UP MAN) Color, UA Yellow [facility] Clarity, UA Clear [facility] Specific [place], UA 1.011 1.001 - 1.035 [facility] pH, UA 5.5 5.0 - 8.0 [facility] Protein, UA 200 mg/dL (A) Negative [facility] Glucose, UA Negative Negative [facility] Ketones, UA Negative Negative [facility] Bilirubin, UA Negative Negative [facility] Blood, UA Trace (A) Negative [facility] Nitrite, UA Negative Negative [facility] Leukocytes, UA Negative Negative [facility] Urobilinogen, UA 0.2 0.2 - 1.0 mg/dL [facility] RBC, UA <1 /HPF [facility] WBC, UA 7 /HPF [facility] Bacteria, UA Occasional [facility] Squam Epithel, UA 1 /HPF [facility] Specimen Source [facility] Specimen Urine Performing Organization Address [facility] Phone Number [address] [address] [phone] [place] Direct AHG (CANELO)/Direct Nichole (11/30/2018 8:10 AM SECONDARY SET UP MAN) Direct AHG-IGG NEGATIVE [facility] Direct AHG-C3B, C3D NEGATVIE [facility] Specimen Blood Performing Organization Address [facility] Phone Number [address] [address] Urine Culture (11/30/2018 8:10 AM SECONDARY SET UP MAN) Result >100,000 col/mL skin stanley [facility] Specimen Urine Performing Organization Address [facility] Phone Number [address] [address] [place] Varicella Zoster Antibody, IgG (11/30/2018 8:10 AM SECONDARY SET UP MAN) Varicella IgG 7.3 [facility] Specimen Blood Narrative Performed At VARICELLA ZOSTER RESULT INTERPRETATIONS: [facility] <=0.8 AlNonreactive:Presumed non-immune to VZV 0.9-1.0 AlEquivocal >=1.1 AlReactive:Presumed immune to VZV Performing Organization Address [facility] Phone Number [address] [address] CENTER Complement Component C3 (11/30/2018 8:10 AM SECONDARY SET UP MAN) C3 Complement 82 82 - 193 mg/dL [facility] Specimen Blood Performing Organization Address [facility] Phone Number [address] [address] [place] Complement Component C4 (11/30/2018 8:10 AM SECONDARY SET UP MAN) C4 Complement 39 15 - 57 mg/dL [facility] Specimen Blood Performing Organization Address [facility] Phone Number [address] [address] CENTER Uric Acid (11/30/2018 8:10 AM SECONDARY SET UP MAN) Uric Acid 10.3 (H) 2.6 - 7.2 mg/dL [facility] Specimen Blood Performing Organization Address [facility] Phone Number [address] [address] [phone] CENTER Phosphorus (11/30/2018 8:10 AM SECONDARY SET UP MAN) Phosphorus 6.7 (H) 2.3 - 4.7 mg/dL [facility] Specimen Blood Performing Organization Address [facility] Phone Number [address] [address] [phone] CENTER PTH, Intact (11/30/2018 8:10 AM SECONDARY SET UP MAN) PTH 315.4 (H) 8.5 - 72.5 pg/mL [facility] Specimen Blood Performing Organization Address [facility] Phone Number [address] [address] [phone] CENTER Lactate Dehydrogenase (LDH) (11/30/2018 8:10 AM SECONDARY SET UP MAN) LDH 285 (H) 125 - 220 U/L [facility] Specimen Blood Performing Organization Address City/[facility] Phone Number [address] [address] [place] Hemoglobin A1c (11/30/2018 8:10 AM SECONDARY SET UP MAN) Hemoglobin A1C 5.2 4.3 - 6.1 % [facility] Specimen Blood Performing Organization Address City/[facility] Phone Number [address] [address] [phone] [place] Gamma Glutamyl Transferase (GGT) (11/30/2018 8:10 AM SECONDARY SET UP MAN) GGT 36 9 - 64 U/L [facility] Specimen Blood Performing Organization Address City/[facility] Phone Number [address] [address] [place] Comprehensive metabolic panel (11/30/2018 8:10 AM SECONDARY SET UP MAN) Protein, Total 6.9 6.0 - 8.3 gm/dL [facility] Albumin 3.9 3.5 - 5.0 g/dL [facility] Alkaline Phosphatase 92 40 - 150 U/L [facility] Total Bilirubin 0.3 0.2 - 1.2 mg/dL [facility] Sodium 140 136 - 145 meq/L [facility] Potassium 4.1 3.5 - 5.1 meq/L [facility] Chloride 106 98 - 107 meq/L [facility] CO2 20 (L) 22 - 29 meq/L [facility] BUN 70 (H) 7 - 21 mg/dL [facility] Creatinine 5.40 (H) 0.57 - 1.25 mg/dL [facility] Glucose 117 (H) 70 - 105 mg/dL [facility] Calcium 9.6 8.4 - 10.2 mg/dL [facility] AST 19 5 - 34 U/L [facility] ALT 11 6 - 55 U/L [facility] EGFR 8Comment: ESTIMATED GFR mL/min/1.73 sq m [facility] IS NOT ACCURATE [facility] CREATININE CLEARANCE IN PREDICTING GLOMERULAR FILTRATION RATE. ESTIMATED GFR IS NOT APPLICABLE FOR DIALYSIS PATIENTS. Specimen Blood Performing Organization Address City/[facility]/Zipcode Phone Number [address] [address] CENTER Blood typing, automated (11/30/2018 8:02 AM SECONDARY SET UP MAN) ABO/RH AUTOMATED (BEAKER) O POSITIVE [facility] Specimen Blood Performing Organization Address City/[facility] Phone Number [address] [address] 2D Echo W/Doppler(CW/PW/Color) (11/09/2018) Narrative Performed At ECG 12 lead (11/09/2018) Narrative Performed At Mammography screening bilateral (09/22/2018) Narrative Performed At Ultrasound retroperitoneal limited (08/16/2018) Narrative Performed At after 02/19/2018 Insurance Payer Benefit Plan / Group Subscriber ID Type Phone Address MEDICARE MEDICARE A B xxxxxxxxxxx Medicare xxxxxxxxx Other Govt ([facility], [facility], etc.) (Home) [place] [address]
--- OUTSIDE RECORDS SUMMARY | 2019-02-20 20:17 | XMS REPORT ---
:1950 [facility] Address [address] [place] [address] Dr. Fitch [address] [place] [address] Care Team Providers Name Role Phone MARIO ANDERSEN Unavailable Unavailable Problems This patient has no known problems. Allergies, Adverse Reactions, Alerts This patient has no known allergies or adverse reactions. Medications This patient has no known medications. Results Test Description Test Time Test Comments Text Results Atomic Results Result Comments URINE CULTURE 2018-12-02 16:29:00 Test Item Value Reference Range Comments CULTURE (BEAKER) (test xpqi=7516) >100,000 col/mL skin stanley CYTOMEGALOVIRUS ANTIBODY, [id number] 12:23:00 Test Item Value Reference Range Comments CYTOMEGALOVIRUS IGM ANTIBODY (BEAKER) (test Negative Negative, Equivocal kjrm=7211) CMV IgM Result Interpretation: </=0.8 Al Negative 0.9-1.0 Al Equivocal >/=1.1 Al PositiveCYTOMEGALOVIRUS ANTIBODY, [id number] 12:18:00 Test Item Value Reference Range Comments CYTOMEGALOVIRUS, IGG (BEAKER) (test lriu=2001) Positive Negative, Equivocal CMV IgG Result Interpretation: </=0.8 Al Negative 0.9-1.0 Al Equivocal &gt ;/=1.1 Al PositiveEBV ANTIBODY, [id number] 12:18:00 Test Item Value Reference Range Comments SHAKIR ESTRADA VIRAL CAPSID ANTIGEN IGG (BEAKER) Positive Negative, Equivocal (test dvke=7331) Shakir Estrada Viral Capsid Antigen IgG Result Interpretation: </=0.8 Al Negative 0.9-1.0 Al Equivocal >/=1.1 Al PositiveCARDIOLIPIN ANTIBODIES, IGG AND [id number] 12:18:00 Test Item Value Reference Range Comments ANTICARDIOLIPIN IGG ANTIBODY (BEAKER) (test yikd=276) < GPL <20.0 ANTICARDIOLIPIN IGM ANTIBODY (BEAKER) (test fpnz=142) < MPL <20.0 Anticardiolipin IgG Result Interpretation: <20.0 GPL Normal>/=20.0 GPL PositiveAnticardiolipin IgM Result Interpretation: <20.0 MPL Normal>/= 20.0 MPL PositiveDOUBLE-STRANDED DNA (DSDNA) [id number] 11:08:00 Test Item Value Reference Range Comments ANTI-DNA DS (BEAKER) (test immv=4688) Negative EBV ANTIBODY, [id number] 10:52:00 Test Item Value Reference Range Comments SHAKIR ESTRADA VIRAL CAPSID ANTIGEN IGM (BEAKER) Negative Negative, Equivocal (test rgep=8582) Shakir Estrada Viral Capsid Antigen IgM Result Interpretation: </=0.8 Al Negative 0.9-1.0 Al Equivocal >/=1.1 Al PositiveVARICELLA ZOSTER ANTIBODY , [id number] 10:52:00 Test Item Value Reference Range Comments VARICELLA ZOSTER IGG (AL) (BEAKER) (test cgfr=5626) 7.3 VARICELLA ZOSTER RESULT INTERPRETATIONS: <=0.8 Al Nonreactive: Presumed non-immune to VZV 0.9-1.0 Al Equivocal >=1.1 Al Reactive: Presumed immune to [id number] 13:57:00 Test Item Value Reference Range Comments RPR SCREEN (BEAKER) (test mcss=296) Nonreactive Nonreactive 1:1 MIXING STUDY, [id number] 11:12:00 Test Item Value Reference Range Comments PROTIME (BEAKER) (test wlvy=388) 13.8 seconds 11.7-14.7 PARTIAL THROMBOPLASTIN TIME (BEAKER) (test 31.6 seconds 22.5-36.0 ikae=502) PT 1/1 MIX (BEAKER) (test vzqx=6268) 13.5 SECS 11.7-14.7 PTT 1/1 MIX (BEAKER) (test noln=2681) 31.9 SECS 22.5-36.0 HEPATITIS B SURFACE [id number] 10:16:00 Test Item Value Reference Range Comments HEPATITIS B SURFACE ANTIBODY (BEAKER) (test < mIU/mL <8.0 fvef=692) HEPATITIS B SURFACE [id number] 09:48:00 Test Item Value Reference Range Comments HEPATITIS B SURFACE ANTIGEN (2) (BEAKER) (test Nonreactive Nonreactive letc=9996) HEPATITIS B CORE ANTIBODY, [id number] 09:48:00 Test Item Value Reference Range Comments HEPATITIS B CORE IGM ANTIBODY (BEAKER) (test Nonreactive Nonreactive zsvt=038) HEPATITIS C [id number] 09:42:00 Test Item Value Reference Range Comments HEPATITIS C ANTIBODY (BEAKER) (test qzwb=992) Nonreactive Nonreactive HIV-1 ANTIGEN WITH HIV-1/2 [id number] 09:42:00 Test Item Value Reference Range Comments HIV-1 ANTIGEN WITH HIV 1\T\2 ANTIBODY (2) Nonreactive Nonreactive (BEAKER) (test rhxj=2001) HEMOGLOBIN [id number] 09:33:00 Test Item Value Reference Range Comments HEMOGLOBIN A1C (BEAKER) (test ewvq=348) 5.2 % 4.3-6.1 COMPLEMENT COMPONENT [id number] 09:29:00 Test Item Value Reference Range Comments C4 COMPLEMENT (BEAKER) (test tkzw=744) 39 mg/dL 15-57 COMPLEMENT COMPONENT [id number] 09:29:00 Test Item Value Reference Range Comments C3 COMPLEMENT (BEAKER) (test xauq=292) 82 mg/dL 82-193 COMPREHENSIVE METABOLIC [id number] 09:29:00 Test Item Value Reference Range Comments TOTAL PROTEIN (BEAKER) 6.9 gm/dL 6.0-8.3 (test agtt=060) ALBUMIN (BEAKER) (test 3.9 g/dL 3.5-5.0 bbvz=2113) ALKALINE PHOSPHATASE 92 U/L 40-150 (BEAKER) (test drdw=223) BILIRUBIN TOTAL (BEAKER) 0.3 mg/dL 0.2-1.2 (test yeib=545) SODIUM (BEAKER) (test 140 meq/L 136-145 lyrx=779) POTASSIUM (BEAKER) (test 4.1 meq/L 3.5-5.1 wyip=089) CHLORIDE (BEAKER) (test 106 meq/L 98-107 ixae=910) CO2 (BEAKER) (test 20 meq/L 22-29 lvqt=634) BLOOD UREA NITROGEN 70 mg/dL 7-21 (BEAKER) (test nxyo=644) CREATININE (BEAKER) (test 5.40 mg/dL 0.57-1.25 pkkw=715) GLUCOSE RANDOM (BEAKER) 117 mg/dL 70-105 (test dmnq=816) CALCIUM (BEAKER) (test 9.6 mg/dL 8.4-10.2 fnki=857) AST (SGOT) (BEAKER) (test 19 U/L 5-34 ysfn=437) ALT (SGPT) (BEAKER) (test 11 U/L 6-55 jezl=617) EGFR (BEAKER) (test 8 mL/min/1.73 sq m ESTIMATED GFR IS NOT jzai=7039) ACCURATE CREATININE CLEARANCE IN PREDICTING GLOMERULAR FILTRATION RATE. ESTIMATED GFR IS NOT APPLICABLE FOR DIALYSIS PATIENTS. URIC [id number] 09:25:00 Test Item Value Reference Range Comments URIC ACID (BEAKER) (test utpw=571) 10.3 mg/dL 2.6-7.2 [id number] 09:25:00 Test Item Value Reference Range Comments PHOSPHORUS (BEAKER) (test ozwd=549) 6.7 mg/dL 2.3-4.7 GAMMA GLUTAMYL TRANSFERASE (GGT)2018-11-30 09:25:00 Test Item Value Reference Range Comments GAMMA GLUTAMYL TRANSFERASE (BEAKER) (test rmto=639) 36 U/L 9-64 LACTATE DEHYDROGENASE (LDH)2018-11-30 09:25:00 Test Item Value Reference Range Comments LACTATE DEHYDROGENASE (BEAKER) (test krgg=902) 285 U/L 125-220 PTH, [id number] 09:19:00 Test Item Value Reference Range Comments PARATHYROID HORMONE INTACT (BEAKER) (test 315.4 pg/mL 8.5-72.5 donj=431) URINALYSIS W/ [id number] 09:08:00 Test Item Value Reference Range Comments COLOR (BEAKER) (test wlki=752) Yellow CLARITY (BEAKER) (test uqag=900) Clear SPECIFIC GRAVITY UA (BEAKER) (test ruwr=612) 1.011 1.001-1.035 PH UA (BEAKER) (test iqnd=047) 5.5 5.0-8.0 PROTEIN UA (BEAKER) (test vfwu=633) 200 mg/dL Negative GLUCOSE UA (BEAKER) (test ksfz=986) Negative Negative KETONES UA (BEAKER) (test wmxb=326) Negative Negative BILIRUBIN UA (BEAKER) (test ckip=193) Negative Negative BLOOD UA (BEAKER) (test oqbh=516) Trace Negative NITRITE UA (BEAKER) (test euhg=596) Negative Negative LEUKOCYTE ESTERASE UA (BEAKER) (test sqjz=562) Negative Negative UROBILINOGEN UA (BEAKER) (test zqjq=875) 0.2 mg/dL 0.2-1.0 RBC UA (BEAKER) (test lviz=973) < /HPF WBC UA (BEAKER) (test spkq=590) 7 /HPF BACTERIA (BEAKER) (test wynz=568) Occasional SQUAMOUS EPITHELIAL (BEAKER) (test ylbo=057) 1 /HPF SOURCE(BEAKER) (test mqli=9618) [id number] 08:58:00 Test Item Value Reference Range Comments PROTIME (BEAKER) (test khoz=934) 13.9 seconds 11.7-14.7 INR (BEAKER) (test nayf=080) 1.1 <=5.9 PARTIAL THROMBOPLASTIN TIME (BEAKER) (test 30.4 seconds 22.5-36.0 vttb=556) RECOMMENDED COUMADIN/WARFARIN INR THERAPY RANGESSTANDARD DOSE: 2.0 - 3.0 Includes: PROPHYLAXIS forvenous thrombosis, systemic embolization; TREATMENT for venous thrombosis and/or pulmonary embolus.HIGH RISK: Target INR is 2.5-3.5 for patients with mechanical heart valves.CBC W/PLT COUNT & AUTO [id number] 08:47:00 Test Item Value Reference Range Comments WHITE BLOOD CELL COUNT (BEAKER) (test wpdb=703) 6.3 K/ L 3.5-10.5 RED BLOOD CELL COUNT (BEAKER) (test cbnk=560) 3.17 M/ L 3.93-5.22 HEMOGLOBIN (BEAKER) (test sidk=287) 9.6 GM/DL 11.2-15.7 HEMATOCRIT (BEAKER) (test ofep=639) 29.9 % 34.1-44.9 MEAN CORPUSCULAR VOLUME (BEAKER) (test rfld=990) 94.3 fL 79.4-94.8 MEAN CORPUSCULAR HEMOGLOBIN (BEAKER) (test 30.3 pg 25.6-32.2 bqki=352) MEAN CORPUSCULAR HEMOGLOBIN CONC (BEAKER) (test 32.1 GM/DL 32.2-35.5 hsvc=147) RED CELL DISTRIBUTION WIDTH (BEAKER) (test 12.6 % 11.7-14.4 bhha=436) PLATELET COUNT (BEAKER) (test hurw=448) 128 K/CU MM 150-450 MEAN PLATELET VOLUME (BEAKER) (test jpci=525) 11.1 fL 9.4-12.3 NUCLEATED RED BLOOD CELLS (BEAKER) (test 0 /100 WBC 0-0 zoqz=786) NEUTROPHILS RELATIVE PERCENT (BEAKER) (test 71 % wsev=040) LYMPHOCYTES RELATIVE PERCENT (BEAKER) (test 19 % xrsc=681) MONOCYTES RELATIVE PERCENT (BEAKER) (test 8 % wlaf=589) EOSINOPHILS RELATIVE PERCENT (BEAKER) (test 2 % hpxf=843) BASOPHILS RELATIVE PERCENT (BEAKER) (test 0 % cgya=906) NEUTROPHILS ABSOLUTE COUNT (BEAKER) (test 4.50 K/ L 1.56-6.13 bcug=459) LYMPHOCYTES ABSOLUTE COUNT (BEAKER) (test 1.20 K/ L 1.18-3.74 zrdz=039) MONOCYTES ABSOLUTE COUNT (BEAKER) (test 0.51 K/ L 0.24-0.36 scci=578) EOSINOPHILS ABSOLUTE COUNT (BEAKER) (test 0.10 K/ L 0.04-0.36 fxux=985) BASOPHILS ABSOLUTE COUNT (BEAKER) (test 0.01 K/ L 0.01-0.08 zwzk=621) IMMATURE GRANULOCYTES-RELATIVE PERCENT (BEAKER) 0 % 0-1 (test tfoe=2947)
[2019-02-20 21:05] LABS: Absolute Lymphocytes (CBC) 1.6 K/uL (0.7-4.9); Absolute Monocytes 0.5 K/uL (0.1-1.3); Absolute Neutrophil 2.4 K/uL (1.8-8.0); Basophils % 0.5 % (0-1.3); Eosinophils % 0.9 % (0-4.4); Hematocrit 28.9 % (36.0-45.0); Lymphocytes % 34.7 % (15.3-44.8); MPV 9.6 fL (7.6-11.3); Monocytes % 10.8 % (3.3-12.3); RBC Red Blood Cell Count 3.23 M/uL (3.86-4.86)
[2019-02-20 21:06] LABS: Protime INR 0.93
[2019-02-20 21:52] LABS: Albumin 3.6 g/dL (3.4-5.0); Bilirubin Direct 0.1 mg/dL (0-0.2); Bilirubin Total 0.3 mg/dL (0.2-1.0); Magnesium 2.6 mg/dL (1.8-2.4); Potassium 3.6 mmol/L (3.5-5.1); Protein, Total 7.3 g/dL (6.4-8.2); Troponin (Emerg Dept Use Only) 0.07 ng/mL (0.0-0.045)
--- NOTE | 2019-02-20 22:34 | EDPHYS ---
Physician Documentation [facility] Name: Cheyanne Haywood Age: 68 yrs Sex: Female : 1950 Arrival Date: 02/20/2019 Time: 20:12 Bed 24 Private MD: Nghia Jones E ED Physician Ezekiel Plunkett HPI: 02/20 22:28 This 68 yrs old Female presents to ER via Wheelchair with complaints of Chest gs Pain, Arm Pain. 22:28 The patient or guardian reports chest pain that is located primarily in the anterior gs chest wall. Onset: today, at 18:00. The pain radiates to the left arm. Associated signs and symptoms: Pertinent positives: nausea, shortness of breath. The chest pain is described as a heaviness. Duration: The patient or guardian reports multiple episodes, that are intermittent, that wax and wane. Modifying factors: The symptoms are alleviated by nothing. the symptoms are aggravated by nothing. Severity of pain: At its worst the pain was severe in the emergency department the pain has improved markedly. The patient has experienced similar episodes in the past, several times. Historical: - Allergies: 20:35 No Known Allergies; ak1 - Home Meds: 20:35 aspirin 81 mg Oral chew once daily [Active]; atorvastatin 40 mg oral tab .5 tab once ak1 daily [Active]; metoprolol tartrate 50 mg Oral tab 1 tab 2 times per day [Active]; sertraline 25 mg oral tab 1 tab once daily [Active]; fluticasone inhalation inhalation [Active]; calcitriol 0.25 mcg oral cap [Active]; cyclosporine opth [Active]; hydroychloroquine sulfate 200mg [Active]; Lasix 40 mg Oral tab 1 tab 2 times per day [Active]; Cartia XT 240 mg Oral cp24 1 cap once daily for Hypertension [Active]; sodium bacarbonate [Active]; - PMHx: 20:35 Depression; Hypertension; kidney problems; Lupus; ak1 - PSHx: 20:35 CABG; aortic valve replacement; ak1 - Immunization history:: Adult Immunizations unknown. - Social history:: Smoking status: Patient/guardian denies using tobacco. - Ebola Screening: : No symptoms or risks identified at this time. ROS: 22:28 All other systems are negative. gs Exam: 21:44 ECG was reviewed by the Attending Physician. gs 22:28 Head/Face: Normocephalic, atraumatic. Eyes: Pupils equal round and reactive to light, gs extra-ocular motions intact. Lids and lashes normal. Conjunctiva and sclera are non-icteric and not injected. Cornea within normal limits. Periorbital areas with no swelling, redness, or edema. ENT: Nares patent. No nasal discharge, no septal abnormalities noted. Tympanic membranes are normal and external auditory canals are clear. Oropharynx with no redness, swelling, or masses, exudates, or evidence of obstruction, uvula midline. Mucous membranes moist. Neck: Trachea midline, no thyromegaly or masses palpated, and no cervical lymphadenopathy. Supple, full range of motion without nuchal rigidity, or vertebral point tenderness. No Meningismus. Chest/axilla: Normal chest wall appearance and motion. Nontender with no deformity. No lesions are appreciated. Respiratory: Lungs have equal breath sounds bilaterally, clear to auscultation and percussion. No rales, rhonchi or wheezes noted. No increased work of breathing, no retractions or nasal flaring. Abdomen/GI: Soft, non-tender, with normal bowel sounds. No distension or tympany. No guarding or rebound. No evidence of tenderness throughout. Back: No spinal tenderness. No costovertebral tenderness. Full range of motion. Skin: Warm, dry with normal turgor. Normal color with no rashes, no lesions, and no evidence of cellulitis. MS/ Extremity: Pulses equal, no cyanosis. Neurovascular intact. Full, normal range of motion. Neuro: Awake and alert, GCS 15, oriented to person, place, time, and situation. Cranial nerves II-XII grossly intact. Motor strength 5/5 in all extremities. Sensory grossly intact. Cerebellar exam normal. Normal gait. 22:28 Constitutional: The patient appears in no acute distress, alert, awake. 22:28 Cardiovascular: Rate: normal, Rhythm: regular, Pulses: no pulse deficits are appreciated, Heart sounds: murmur, systolic. Vital Signs: 20:28 BP 181 / 90; Pulse 69; Resp 16; Temp 98.6; Pulse Ox 96% on R/A; Weight 73.48 kg (R); ak1 Height 5 ft. 6 in. (167.64 cm) (R); Pain 5/10; 21:58 BP 161 / 82; Pulse 68; Resp 16 S; Pulse Ox 97% on R/A; jd3 22:59 BP 169 / 73; Pulse 63; Resp 18; Pulse Ox 97% ; ea 02/21 00:00 BP 166 / 89; Pulse 65; Resp 18; Pulse Ox 99% on R/A; ea 01:00 BP 125 / 70; Pulse 64; Resp 18; Pulse Ox 97% on R/A; ea 02/20 20:28 Body Mass Index 26.15 (73.48 kg, 167.64 cm) ak1 MDM: 02/20 20:56 Patient medically screened. gs 21:44 Data reviewed: vital signs, nurses notes. gs 22:28 Differential diagnosis: acute myocardial infarction, chest wall pain, pneumonia, gs unstable angina. Data reviewed: lab test result(s), EKG, radiologic studies. Counseling: I had a detailed discussion with the patient and/or guardian regarding: the historical points, exam findings, and any diagnostic results supporting the discharge/admit diagnosis, the need for further work-up and treatment in the hospital. 02/20 20:35 Order name: Basic Metabolic Panel; Complete Time: 21:57 02/20 20:35 Order name: CBC with Diff; Complete Time: 21:57 02/20 20:35 Order name: LFT's; Complete Time: 21:57 02/20 20:35 Order name: Magnesium; Complete Time: 21:57 02/20 20:35 Order name: NT PRO-BNP; Complete Time: 21:57 02/20 20:35 Order name: PT-INR; Complete Time: 21:57 02/20 20:35 Order name: Troponin (emerg Dept Use Only); Complete Time: 21:57 02/20 22:55 Order name: Basic Metabolic Panel EDME 02/20 22:55 Order name: Basic Metabolic Panel EDME 02/20 22:55 Order name: CBC with Automated Diff EDMS 02/20 22:55 Order name: CBC with Automated Diff EDMS 02/20 22:55 Order name: Lipid Profile EDME 02/20 22:55 Order name: Lipid Profile EDME 02/20 22:55 Order name: Troponin I EDME 02/20 20:35 Order name: XRAY Chest (1 view) 02/20 20:35 Order name: EKG; Complete Time: 20:35 02/20 20:35 Order name: Cardiac monitoring; Complete Time: 20:51 02/20 20:35 Order name: EKG - Nurse/Tech; Complete Time: 20:51 02/20 20:35 Order name: IV Saline Lock; Complete Time: 20:51 02/20 20:35 Order name: Labs collected and sent; Complete Time: 20:56 02/20 20:35 Order name: O2 Per Protocol; Complete Time: 20:57 02/20 20:35 Order name: O2 Sat Monitoring; Complete Time: 21:30 02/20 22:55 Order name: Heart Healthy [facility] 02/20 22:55 Order name: Echo with Doppler [facility] 02/20 22:55 Order name: EKG Electrocardiogram [facility] 02/20 22:55 Order name: EKG Electrocardiogram [facility] 02/20 22:55 Order name: Troponin I [facility] 02/20 22:55 Order name: Troponin I [facility] EC:44 Rate is 69 beats/min. Rhythm is regular. IN interval is normal. QRS interval is gs prolonged. T waves are Normal. No ST changes noted. Clinical impression: Abnormal EKG without significant change. Interpreted by me. Administered Medications: No medications were administered Disposition: 02/20/19 22:33 Hospitalization ordered by Connie Cervantes for Observation. Preliminary diagnosis is Chest pain, unspecified. - Bed requested for Telemetry/MedSurg (observation). - Status is Observation. iw - Condition is Stable. - Problem is new. - Symptoms have improved. UTI on Admission? No Signatures: Dispatcher [employer] EDME Amanda Fountain Brenda, RN RN bb Joelle Harvey RN RN iw Kaylyn Vázquez RN RN ak1 Ezekiel Plunkett MD MD Corrections: (The following items were deleted from the chart) 23:56 22:33 Hospitalization Ordered by Connie Cervantes MD for Observation. Preliminary bb diagnosis is Chest pain, unspecified. Bed requested for Telemetry/MedSurg (observation). Status is Observation. Condition is Stable. Problem is new. Symptoms have improved. UTI on Admission? No. gs 23:57 23:56 02/20/2019 22:33 Hospitalization Ordered by Connie Cervantes MD for Observation. bb Preliminary diagnosis is Chest pain, unspecified. Bed requested for [facility] ER HOLD. Status is Observation. Condition is Stable. Problem is new. Symptoms have improved. UTI on Admission? No. bb 02/21 12:36 02/20 23:57 02/20/2019 22:33 Hospitalization Ordered by Connie Cervantes MD for bd Observation. Preliminary diagnosis is Chest pain, unspecified. Bed requested for [facility] ER HOLD. Status is Observation. Condition is Stable. Problem is new. Symptoms have improved. UTI on Admission? No. bb 02/21 13:48 12:36 02/20/2019 22:33 Hospitalization Ordered by Connie Cervantes MD for Observation. iw Preliminary diagnosis is Chest pain, unspecified. Bed requested for Telemetry/MedSurg (observation). Status is Observation. Condition is Stable. Problem is new. Symptoms have improved. UTI on Admission? No. bd
--- NOTE | 2019-02-20 22:34 | ER ---
Nurse's Notes [facility] Name: Cheyanne Haywood Age: 68 yrs Sex: Female : 1950 Arrival Date: 02/20/2019 Time: 20:12 Bed 24 Private MD: Nghia Jones E Diagnosis: Chest pain, unspecified Presentation: 02/20 20:28 Presenting complaint: Patient states: chest pain that radiates down left arm started at ak1 1800. pt c/o nausea started at 2000. pt pale at triage. pt sees Dr. Jones and Dr. Cooper. Transition of care: patient was not received from another setting of care. Onset of symptoms was February 20, 2019. Risk Assessment: Do you want to hurt yourself or someone else? Patient reports no desire to harm self or others. Initial Sepsis Screen: Does the patient meet any 2 criteria? No. Patient's initial sepsis screen is negative. Does the patient have a suspected source of infection? No. Patient's initial sepsis screen is negative. Care prior to arrival: None. 20:28 Method Of Arrival: Wheelchair ak1 20:28 Acuity: NORMA 3 ak1 Triage Assessment: 20:28 General: Appears uncomfortable, ill, Behavior is calm. Pain: Complains of pain in chest ak1 and left arm Pain radiates to left arm Pain began 2 hours ago. EENT: No signs and/or symptoms were reported regarding the EENT system. Neuro: No deficits noted. Cardiovascular: Reports chest pain, nausea, vomiting. Historical: - Allergies: 20:35 No Known Allergies; ak1 - Home Meds: 20:35 aspirin 81 mg Oral chew once daily [Active]; atorvastatin 40 mg oral tab .5 tab once ak1 daily [Active]; metoprolol tartrate 50 mg Oral tab 1 tab 2 times per day [Active]; sertraline 25 mg oral tab 1 tab once daily [Active]; fluticasone inhalation inhalation [Active]; calcitriol 0.25 mcg oral cap [Active]; cyclosporine opth [Active]; hydroychloroquine sulfate 200mg [Active]; Lasix 40 mg Oral tab 1 tab 2 times per day [Active]; Cartia XT 240 mg Oral cp24 1 cap once daily for Hypertension [Active]; sodium bacarbonate [Active]; - PMHx: 20:35 Depression; Hypertension; kidney problems; Lupus; ak1 - PSHx: 20:35 CABG; aortic valve replacement; ak1 - Immunization history:: Adult Immunizations unknown. - Social history:: Smoking status: Patient/guardian denies using tobacco. - Ebola Screening: : No symptoms or risks identified at this time. Screenin:35 Abuse screen: Denies threats or abuse. Nutritional screening: No deficits noted. ea Tuberculosis screening: No symptoms or risk factors identified. Fall Risk None identified. Assessment: 20:30 General: Appears uncomfortable, Behavior is calm, cooperative, appropriate for age. ea Pain: Complains of pain in left arm and chest. Pain: Pain radiates to left arm Quality of pain is described as pressure, Is continuous. Neuro: Level of Consciousness is awake, alert, obeys commands, Oriented to person, place, time, situation. Cardiovascular: Patient's skin is warm and dry. Respiratory: Airway is patent Respiratory effort is even, unlabored, Respiratory pattern is regular, symmetrical. GI: Abdomen is non-distended. Derm: Skin is pink, warm \T\ dry. 21:30 Reassessment: Patient and/or family updated on plan of care and expected duration. Pain ea level reassessed. Patient is alert, oriented x 3, equal unlabored respirations, skin warm/dry/pink. 22:38 Reassessment: Patient and/or family updated on plan of care and expected duration. Pain ea level reassessed. Patient is alert, oriented x 3, equal unlabored respirations, skin warm/dry/pink. 22:47 Reassessment: Dr. Plunkett in room updating pt on plan of care. ea 23:07 Reassessment: Patient and/or family updated on plan of care and expected duration. Pain ea level reassessed. Patient is alert, oriented x 3, equal unlabored respirations, skin warm/dry/pink. Patient states symptoms have improved. 02/21 00:00 Reassessment: Patient and/or family updated on plan of care and expected duration. Pain ea level reassessed. Patient is alert, oriented x 3, equal unlabored respirations, skin warm/dry/pink. 01:00 Reassessment: Patient and/or family updated on plan of care and expected duration. Pain ea level reassessed. Pt resting with eyes closed, respirations even and unlabored. Chest expansions even and symmetrical. Vital Signs: 02/20 20:28 BP 181 / 90; Pulse 69; Resp 16; Temp 98.6; Pulse Ox 96% on R/A; Weight 73.48 kg (R); ak1 Height 5 ft. 6 in. (167.64 cm) (R); Pain 5/10; 21:58 BP 161 / 82; Pulse 68; Resp 16 S; Pulse Ox 97% on R/A; jd3 22:59 BP 169 / 73; Pulse 63; Resp 18; Pulse Ox 97% ; ea 02/21 00:00 BP 166 / 89; Pulse 65; Resp 18; Pulse Ox 99% on R/A; ea 01:00 BP 125 / 70; Pulse 64; Resp 18; Pulse Ox 97% on R/A; ea 02/20 20:28 Body Mass Index 26.15 (73.48 kg, 167.64 cm) ak1 ED Course: 02/20 20:12 Patient arrived in ED. am2 20:12 Nghia Jones MD is Private Physician. am2 20:28 Arm band placed on Patient placed in an exam room, on a stretcher, on barrel reamer, ak1 on pulse oximetry, Patient notified of wait time. 20:29 Ezekiel Plunkett MD is Attending Physician. gs 20:29 Triage completed. ak1 20:30 Patient maintains SpO2 saturation greater than 95% on room air. ea 20:35 finished metal repairer on. Pulse ox on. NIBP on. ea 20:45 Inserted saline lock: 20 gauge in right antecubital area, using aseptic technique. ea Blood collected. 20:50 EKG done, by ED staff, reviewed by Ezekiel Plunkett MD. ag4 21:15 Deann Mackey, DEBORAH is Primary Nurse. ea 21:30 XRAY Chest (1 view) In Process Unspecified. EDMS 21:34 Patient has correct armband on for positive identification. ea 22:33 Connie Cervantes MD is Hospitalizing Provider. gs 22:58 No provider procedures requiring assistance completed. Patient admitted, IV remains in ea place. 02/21 08:49 EKG done, by electronic equipment maint tech. reviewed by Jorge Suh MD. at1 09:10 Diet: Patient given a heart healthy meal tray. mh5 Administered Medications: No medications were administered Outcome: 02/20 22:33 Decision to Hospitalize by Provider. 02/21 00:00 Instructed on the need for admit. ea 01:00 Admitted to ER Hold. Please see [facility] for further documentation. ea 01:00 Condition: stable 13:48 Patient left the ED. Signatures: Dispatcher [employer] Joelle Acosta, DEBORAH RN Flaquita Briscoe, core cutter and reamer EKG Tat1 Kaylyn Vázquez RN RN eligio1 Scarlett Samuels [facility] Flaquita Mcgarry am2 Deann Mackey RN RN ea Starr, Gregory, MD MD gs Davies, Jonathon, RN RN Karan Carr ag4
[2019-02-20] MEDS ORDERED: MORPHINE 4 MG/ML SYR IV PRN (22:52)
[2019-02-20] MEDS ORDERED: ACETAMINOPHEN 500 MG TAB PO PRN (22:52)
[2019-02-20] MEDS ORDERED: ALPRAZOLAM 0.25 MG TABLET PO PRN (22:52)
[2019-02-21 05:33] LABS: Absolute Lymphocytes (CBC) 1.8 K/uL (0.7-4.9); Absolute Monocytes 0.7 K/uL (0.1-1.3); Absolute Neutrophil 2.2 K/uL (1.8-8.0); Basophils % 0.6 % (0-1.3); Eosinophils % 1.4 % (0-4.4); Hematocrit 26.5 % (36.0-45.0); Lymphocytes % 37.3 % (15.3-44.8); MPV 9.5 fL (7.6-11.3); Monocytes % 14.5 % (3.3-12.3); RBC Red Blood Cell Count 3.01 M/uL (3.86-4.86)
[2019-02-21 05:47] LABS: Potassium 3.6 mmol/L (3.5-5.1)
--- NOTE | 2019-02-21 06:11 | P.HP ---
Certification for Inpatient Patient admitted to: Observation With expected LOS: <2 Midnights Patient will require the following post-hospital care: None Practitioner: I am a practitioner with admitting privileges, knowledge of patient current condition, hospital course, and medical plan of care. Services: Services provided to patient in accordance with Admission requirements found in Title 42 Section 412.3 of the Code of Federal Regulations Patient History Date of Service: 02/21/19 Reason for admission: Chest pain rule out acute coronary syndrome History of Present Illness: Patient is a 68-year-old female who started having pain in the anterior sternal region. The pain radiated down her left arm. She had some shortness of breath along with nausea. She described it as a heaviness that made her short of breath. She had prior CABG before. Initial workup in the ER, revealed some elevated troponin with acute on chronic renal insufficiency. Will follow her troponin serially. She will be admitted to the hospital for further workup. Allergies No Known Drug Allergies Allergy (Verified 11/06/18 01:42) Unknown Home Medications: Aspirin 1 tab PO DAILY 11/05/18 Atorvastatin Calcium [Lipitor] 20 mg PO BEDTIME 11/05/18 Calcitriol [Rocaltrol] 1 tab PO DAILY 11/05/18 Cyclosporine/Chondroit Sulf A [Cyclosporine 0.1% in [place]] 1 drop BID Diltiazem HCl [Cartia Xt] 180 mg PO DAILY 11/05/18 Doxazosin [Cardura*] 1 tab PO BID 11/05/18 Fluticasone [Flovent Hfa 110*] 1 spray IH BID 11/05/18 Hydroxychloroquine Sulfate 1 tab PO DAILY 11/05/18 Metoprolol Tartrate [Lopressor*] 1 tab PO BID 11/05/18 Sertraline [Zoloft*] 75 mg PO DAILY 11/05/18 Vit D3/Folic Acid/B2/B6/B12 [Folgard Tablet] 1,000 mg PO BID 11/05/18 Furosemide [Lasix] 40 mg PO BID #30 tab 11/08/18 - Past Medical/Surgical History Has patient received pneumonia vaccine in the past: Yes Diabetic: No -: Hypertension -: Aortic valve replacement -: Coronary artery disease, CABG x1 vessel -: Lupus -: Chronic renal disease -: Anemia of chronic disease -: Depression -: Aortic valve replacement -: CABG x1 vessel -: Breast biopsies -: D/C Psychosocial/ Personal History: The patient is . She has children. She does not work. - Family History Mother Medical History: Other (see notes) Father Medical History: Heart disease, Diabetes - Social History Smoking Status: Never smoker Alcohol use: No CD- Drugs: No Caffeine use: Yes Place of Residence: Home Review of Systems 10-point ROS is otherwise unremarkable Physical Examination - Vital Signs Temperature: 98.6 F Blood Pressure: 132/74 Pulse: 60 Respirations: 18 Pulse Ox (%): 99 - Physical Exam General: Alert, In no apparent distress, Oriented x3 HEENT: Atraumatic, PERRLA, Mucous membr. moist/pink, EOMI, Sclerae nonicteric Neck: Supple, 2+ carotid pulse no bruit, No LAD, Without JVD or thyroid abnormality Respiratory: Clear to auscultation bilaterally, Normal air movement Cardiovascular: Regular rate/rhythm, Normal S1 S2, No murmurs Gastrointestinal: Normal bowel sounds, Soft and benign, Non-distended, No tenderness Musculoskeletal: No clubbing, No swelling, No tenderness Integumentary: No rashes Neurological: Normal gait, Normal speech, Normal strength at 5/5 x4 extr, Normal tone, Sensation intact, Cranial nerves 3-12 intact, Normal affect Lymphatics: No axilla or inguinal lymphadenopathy - Studies Laboratory Data (last 24 hrs) 02/20/19 20:30: PT 11.0, INR 0.93 02/20/19 20:30: WBC 4.5, Hgb 9.7 L, Hct 28.9 L, Plt Count 117 L 02/20/19 20:30: Sodium 142, Potassium 3.6, BUN 80 H, Creatinine 5.74 H*, Glucose 221 H, Magnesium 2.6 H, Total Bilirubin 0.3, AST 28, ALT 18, Alkaline Phosphatase 122 H Assessment & Plan - Problems (Diagnosis) (1) Chest pain, rule out acute myocardial infarction Current Visit: Yes Status: Acute (2) CKD (chronic kidney disease), stage V Onset Date: 09/26/18 Current Visit: No Status: Acute (3) Coronary artery disease Onset Date: 11/02/16 Current Visit: No Status: Chronic Qualifiers: (4) H/O aortic valve replacement Current Visit: No Status: Chronic (5) Hypertension Onset Date: 11/02/16 Current Visit: No Status: Chronic Qualifiers: (6) Lupus Onset Date: 11/02/16 Current Visit: No Status: Chronic Qualifiers: - Plan 1. Serial troponins and EKG 2. Cardiology consultation 3. Echocardiogram and possible further intervention pending Cardiology recommendations 4. Anti-platelet therapy, anti coagulation, beta-max, statin, and O2 as needed 5. IV morphine for pain 6. Nitro p.r.n. 7. Strict blood pressure and blood sugar control 8. Lipid profile 9. GI and DVT prophylaxis - Advance Directives Does patient have a Living Will: No Does patient have a Durable POA for Healthcare: No - Code Status/Comfort Care Code Status Assessed: Yes Code Status: Full Code Critical Care: No Time Spent Managing PTS Care (In Minutes): 45
[2019-02-21 07:17] VITALS: BMI 28.7
--- NOTE | 2019-02-21 08:01 | RAD REPORT ---
EXAM DESCRIPTION: RAD - Chest Single View - 02/20/2019 9:38 pm CLINICAL HISTORY: CHEST PAIN Chest pain. COMPARISON: Chest Pa And Lat (2 Views) dated 11/06/2018; Chest Single View dated 11/05/2018; Chest S terrence View dated 09/30/2018; Chest Single View dated 09/24/2018 FINDINGS: Portable technique limits examination quality. The lungs are grossly clear. The heart is moderately enlarged in size. No displaced fractures.Sternot dahiana wires present. IMPRESSION: No acute intrathoracic process suspected.
[2019-02-21] MEDS ORDERED: ASPIRIN EC 81 MG TAB PO SCH (09:00)
[2019-02-21] MEDS ORDERED: METOPROLOL TAR 50 MG TAB PO SCH (09:00)
[2019-02-21] MEDS: ENOXAPARIN 30 MG/0.3 ML SQ SCH (09:00)
[2019-02-21] MEDS ORDERED: METOPROLOL TAR 25 MG TAB ONE (10:12)
[2019-02-21] MEDS ORDERED: ASPIRIN EC 81 MG TAB PO ONE (10:12)
[2019-02-21] MEDS ORDERED: ENOXAPARIN 30 MG/0.3 ML SQ ONE (10:13)
--- NOTE | 2019-02-21 11:43 | EKG ---
Test Date: 2019-02-21 Test Time: 08:42:10 Splitting Machine Operator: JAMARI MEASUREMENT RESULTS: Intervals: Rate: 63 RI: 206 QRSD: 180 QT: 538 QTc: 550 [place]: P: 63 RI: 206 QRS: -44 T: 62 INTERPRETIVE STATEMENTS: Normal sinus rhythm Left axis deviation Right bundle branch block Abnormal ECG Compared to ECG 02/20/2019 22:11:53 no significant change from previous ECG Electronically Signed On 02-21-19 09:58:15 CDT by Jong Cooper
--- NOTE | 2019-02-21 11:44 | EKG ---
Test Date: 2019-02-20 Test Time: 22:11:53 Log Manager: [id number] MEASUREMENT RESULTS: Intervals: Rate: 64 NM: 204 QRSD: 192 QT: 536 QTc: 552 [place]: P: 53 NM: 204 QRS: -50 T: 68 INTERPRETIVE STATEMENTS: Normal sinus rhythm Right bundle branch block Left axis Nonspecific ST andTabnormality Abnormal ECG Compared to ECG 11/05/2018 12:47:27 Right bundle-branch block now present Left axis Electronically Signed On 02-21-19 10:02:47 CDT by Jong Cooper
--- NOTE | 2019-02-21 11:53 | ECHO ---
HEIGHT: 5 ft 3 in WEIGHT: 161 lb 15.931 oz DATE OF STUDY: 02/21/[address]: Connie Cervantes MD 2-DIMENSIONAL: YES M.MODE: YES DOPPLER: YES COLOR FLOW: YES TDS: NO PORTABLE: YES DEFINITY: NO BUBBLE STUDY: NO DIAGNOSIS: CHEST PAIN/ RULE OUT ACUTE CORONARY SYNDROME CARDIAC HISTORY: CATHERIZATION: YES SURGERY: YES PROSTHETIC VALVE: YES PACEMAKER: NO MEASUREMENTS (cm) DIASTOLIC (NORMALS) SYSTOLIC (NORMALS) IVSd 1.1 (0.6-1.2) LA Diam 3.9 (1.9-4.0) LVEF 55% LVIDd 5.0 (3.5-5.7) LVIDs 3.6 (2.0-3.5) %FS 29% LVPWd 1.2 (0.6-1.2) Ao Diam 2.7 (2.0-3.7) 2 DIMENSIONAL ASSESSMENT: RIGHT ATRIUM: NORMAL LEFT ATRIUM: NORMAL RIGHT VENTRICLE: NORMAL LEFT VENTRICLE: NORMAL TRICUSPID VALVE: NORMAL MITRAL VALVE: NORMAL PULMONIC VALVE: NORMAL AORTIC VALVE: BIOPROSTHETIC, STENOSIS PERICARDIAL EFFUSION: NONE AORTIC ROOT: NORMAL LEFT VENTRICULAR WALL MOTION: NORMAL. DOPPLER/COLOR FLOW: MODERATE AORTIC STENOSIS PEAK/MEAN GRADIENT 54/29mmHg. ESTIMATED AORTIC VALVE AREA 1.3 CENTIMETERS SQUARED. MILD AORTIC AND MITRAL REGURGITATION. COMMENTS: NORMAL LEFT VENTRICULAR EJECTION FRACTION. BIOPROSTHETIC AORTIC VALVE WITH MODERATE AORTIC STENOSIS. MILD AORTIC AND MITRAL REGURGITATION. TECHNOLOGIST: LEA DAWN
[2019-02-21] MEDS: FUROSEMIDE 40 MG TABLET PO SCH ×2 (14:41→20:52)
[2019-02-21] MEDS: DILTIAZEM HCL 120 MG SR CAP PO SCH (14:42)
[2019-02-21] MEDS: METOPROLOL TAR 50 MG TAB PO SCH ×2 (14:42→20:51)
--- NOTE | 2019-02-21 16:40 | CON ---
History Of Present Illness: Ms. Haywood has a history of aortic valve surgery, a bioprosthetic valve, history of a 1-vessel bypass done at the same surgery, and now numerous admissions for chest pain. She had admission in our hospital in September and October. She was admitted at [facility], I think s ome other times, fairly recently as well. She comes in with pain that is up in the left pectoral reg ion, radiates to the left arm, makes her concerned that she may be having heart trouble. None of tho se have proved to be true. Her last stress test was in October 2018 and it was normal. Her coronar y arteries were actually minimally diseased at the time of the bypass. She had a bypass of a 50% tyrell nosis in a vessel and since then has not required any other interventions. She has underlying renal failure, lupus, hypertension, dyslipidemia, coronary heart disease, and valvular heart disease. She uses no tobacco, no alcohol, no illegal drugs. Outpatient Medications: Cyclosporine-chondroitin drops, Flovent, calcitriol, atorvastatin, aspirin, sertraline, hydroxychloroquine, diltiazem, metoprolol 50 b.i.d., and Lasix. Physical Examination: General: She appears to be older than her stated age. Alert, oriented, pleasant, not in distress. No longer having the pain. Lungs: Clear. Heart: Does not reveal any significant murmur. Abdomen: Soft. Extremities: Trace edema. No cyanosis, clubbing. Distal pulses diminished. Laboratory Data: Her creatinine is 5.3. Troponins 0.2 and several hours later 0.21. An echocardiog tristan shows moderate stenosis of the bioprosthetic valve, trace aortic regurgitation. Overall ejection fraction is normal. No segmental wall motion abnormality. Impression: This is probably again noncardiac chest pain. We will order a pharmacologic nuclear str ess test for tomorrow and will see if we need to take a measure of advancing to a cardiac cath. Vin wise, I think this is musculoskeletal pain and not due to coronary heart disease. JIN/HECTOR Voice ID: [id number] Report ID: [id number]
[2019-02-21] MEDS ORDERED: ATORVASTATIN 40 MG TAB PO SCH (21:00)
[2019-02-21] MEDS ORDERED: ATORVASTATIN 20 MG TAB PO SCH (21:00)
[2019-02-21 22:32] LABS: Urine Appearance CLEAR; Urine Bilirubin NEGATIVE (NEG); Urine Blood 1+ (NEG); Urine Color YELLOW; Urine Glucose 1+ (NEG); Urine Protein 2+ (NEG); Urine Urobilinogen 0.2 mg/dL (0.2-1.0)
[2019-02-21 22:49] LABS: Urine Microscopic Reflex ORDER UMIC
[2019-02-22 00:15] LABS: Urine Bacteria <20 /HPF (<20); Urine Culture Reflex Order NOT NEEDED; Urine RBC <5 /HPF (NONE SEEN)
[2019-02-22] MEDS: METOPROLOL TAR 50 MG TAB PO SCH (08:45)
[2019-02-22] MEDS: ENOXAPARIN 30 MG/0.3 ML SQ SCH (08:46)
[2019-02-22] MEDS: FUROSEMIDE 40 MG TABLET PO SCH (08:47)
[2019-02-22] MEDS: DILTIAZEM HCL 120 MG SR CAP PO SCH (08:50)
[2019-02-22] MEDS ORDERED: HYDROXYCHLOROQUINE 200MG TAB PO SCH (09:00)
[2019-02-22] MEDS ORDERED: SERTRALINE HCL 50 MG TAB PO SCH (09:00)
[2019-02-22] MEDS ORDERED: CALCITROL 0.25 MCG CAP PO SCH (09:00)
[2019-02-22] MEDS ORDERED: REGADENOSON 0.4 MG/5 ML SYR IV ONE (11:14)
[2019-02-22 12:23] VITALS: BP 146/70; TEMP 96.5
[2019-02-22 12:37] VITALS: O2SAT 96
--- NOTE | 2019-02-22 13:56 | RAD REPORT ---
EXAM DESCRIPTION: NM - Rest Stress Cardiac Imaging - 02/22/2019 1:44 pm CLINICAL HISTORY: Chest pain. COMPARISON: None. TECHNIQUE: The patient was administered approximately 10mCi of Tc 99m Sestamibi prior to resting SPE CT imaging of the heart. The patient was then administered approximately 30 mCi of Tc 99m Sestamibi f ollowing exercise or pharmacologic stress. Multiplanar SPECT images were reviewed. FINDINGS: Stress images demonstrate a small to moderate area of diminished radiotracer uptake involv es anterior apical left ventricular myocardium. Rest images demonstrate normal radiotracer uptake Small area of diminished radiotracer uptake involving the inferior left rib myocardium is present on rest and stress images The left ventricular ejection fraction equals 43% IMPRESSION: Small to moderate reversible perfusion defect involving the anterior apical left ventric ular myocardium may indicate stress-induced ischemia Small area of diminished radiotracer uptake involving the inferior left ventricular myocardium on res t and stress images may indicate an infarct
--- NOTE | 2019-02-22 16:55 | P.SSS ---
Patient History Date of Service: 02/22/19 Reason for admission: Chest pain rule out acute coronary syndrome History of Present Illness: Patient is a 68-year-old female who started having pain in the anterior sternal region. The pain radiated down her left arm. She had some shortness of breath along with nausea. She described it as a heaviness that made her short of breath. She had prior CABG before. Initial workup in the ER, revealed some elevated troponin with acute on chronic renal insufficiency. Will follow her troponin serially. She will be admitted to the hospital for further workup. Allergies No Known Drug Allergies Allergy (Verified 11/06/18 01:42) Unknown Home Medications: RX: Aspirin 1 tab PO DAILY 11/05/18 RX: Atorvastatin Calcium [Lipitor] 20 mg PO BEDTIME 11/05/18 RX: Calcitriol [Rocaltrol] 1 tab PO DAILY 11/05/18 RX: Cyclosporine/Chondroit Sulf A [Cyclosporine 0.1% in [place]] 1 drop BID PRN 11/05/18 RX: Diltiazem HCl [Cartia Xt] 240 mg PO DAILY 11/05/18 RX: Fluticasone [Flovent Hfa 110*] 1 spray IH BID PRN 11/05/18 RX: Hydroxychloroquine Sulfate 1 tab PO DAILY 11/05/18 RX: Metoprolol Tartrate [Lopressor*] 1 tab PO BID 11/05/18 RX: Sertraline [Zoloft*] 1.5 tab PO DAILY 11/05/18 RX: Furosemide [Lasix*] 40 mg PO BID #30 tab 11/08/18 - Past Medical/Surgical History Has patient received pneumonia vaccine in the past: Yes Diabetic: No -: Hypertension -: Aortic valve replacement -: Coronary artery disease, CABG x1 vessel -: Lupus -: Chronic renal disease -: Anemia of chronic disease -: Depression -: Aortic valve replacement -: CABG x1 vessel -: Breast biopsies -: D/C Psychosocial/ Personal History: The patient is . She has children. She does not work. - Family History Mother -: Other (see notes) Father -: Heart disease, Diabetes - Social History Smoking Status: Never smoker Alcohol use: No CD- Drugs: No Caffeine use: Yes Place of Residence: Home Review of Systems 10-point ROS is otherwise unremarkable Physical Examination - Vital Signs Temperature: 96.5 F Blood Pressure: 146/70 Pulse: 56 Respirations: 16 Pulse Ox (%): 96 - Physical Exam General: Alert, In no apparent distress HEENT: Atraumatic, PERRLA, Mucous membr. moist/pink, EOMI, Sclerae nonicteric Neck: Supple, 2+ carotid pulse no bruit, No LAD, Without JVD or thyroid abnormality Respiratory: Clear to auscultation bilaterally, Normal air movement Cardiovascular: Regular rate/rhythm, Normal S1 S2 Gastrointestinal: Normal bowel sounds, No tenderness Musculoskeletal: No tenderness Integumentary: No rashes Neurological: Normal gait, Normal speech, Normal strength at 5/5 x4 extr, Normal tone, Normal affect Lymphatics: No axilla or inguinal lymphadenopathy - Diagnosis (Problem(s)) (1) Chest pain, rule out acute myocardial infarction Current Visit: Yes Status: Resolved (2) Chronic renal disease Onset Date: 11/02/16 Current Visit: No Status: Chronic Qualifiers: Chronic kidney disease stage: on chronic dialysis Qualified Code(s): N18.6 - End stage renal disease; Z99.2 - Dependence on renal dialysis (3) Coronary artery disease Onset Date: 11/02/16 Current Visit: No Status: Chronic Qualifiers: Coronary Disease-Associated Artery/Lesion type: [place] artery [place] vs. transplanted heart: [place] heart Associated angina: without angina Qualified Code(s): I25.10 - Atherosclerotic heart disease of [place] coronary artery without angina pectoris (4) Depression Onset Date: 11/02/16 Current Visit: No Status: Chronic Qualifiers: Depression Type: unspecified Qualified Code(s): F32.9 - Major depressive disorder, single episode, unspecified (5) H/O aortic valve replacement Current Visit: No Status: Chronic (6) Hypertension Onset Date: 11/02/16 Current Visit: No Status: Chronic Qualifiers: Hypertension type: essential hypertension Treatment Summary: Overall during the hospital stay patient remained stable Patient was initially admitted to the hospital for chest pain ACS rule out. Patient had troponin x2 done here in the hospital which were initially and elevated. Patient however also has end-stage renal disease and thus her BNP is chronically elevated along with creatinine. Troponin this were most likely falsely negative. Patient however had cardiology consulted here who recommended the patient get an echocardiogram and stress test done. Patient had echocardiogram and stress test done here in the hospital. Echocardiogram was with no new changes. Stress test was done with nuclear imaging portion consistent with small to moderate ischemic area however this appeared to be chronic and no acute ischemia was noted. Patient also had was chest pain free while here in the hospital. At that time patient was discharged home under stable condition was asked to follow up with primary care provider and Cardiology in about 1-2 days post discharge. Patient and her standing and thus was discharged home under stable condition. - Disposition Disposition: ROUTINE DISCHARGE Condition: GOOD Patient Discharge Instructions: Please f.u with PCP and Dr Cooper in 1 to 2 week post discharge. No new medication Diet: Regular Activity: Ad richie
--- NOTE | 2019-02-23 08:48 | TREADPHA ---
DX: CHEST PAIN, ABNORMAL TROPONIN I, RENAL FAILURE Date of Study: 02/22/2019 Ht: 5 3 Wt: 161 lb 15.931 oz Consulting Physician: AMANDA MEDICATIONS: TYLENOL, XANAX, LIPITOR, ROCALTROL, CARDIZEM, LOVENOX, LASIX, LOPRESSOR, PLAQUENIL, ZOLOFT HISTORY: 68 YEAR OLD FEMALE HERE FOR CHEST PAIN. HISTORY OF DEPRESSION, HYPERTENSION, STAGE IV RENAL INSUFFICENTCY AND LUPUS. PHYSICIAL EXAMINATION: RESTING B.P.: 141/71 RESTING H.R.: 55 RESTING EKG: SINUS, LEFT VENTRICULAR HYPERTROPHY, RIGHT BUNDLE BRANCH BLOCK. PROTOCOL: LEXISCAN EXERCISE TIME: 3:30 B.P. AT [place]AK STRESS: 141/73 IMPRESSION: LEXISCAN STRESS TEST PREFORMED. CARDIOLITE INJECTED PER PROTOCOL. NO PREMATURE COMPLEXES OR PREMATURE ATRIAL COMPLEXES NOTED THROUGHOUT TEST. DENIES ANY CHEST PAIN. SEE NUCLEAR MEDICINE REPORT. NON DIAGNOSTIC EKG WITH LEXISCAN STRESS.
== END 2019-02-22 17:22 | disposition home or self-care (01) ==
LOC: ER 20:11 → ERHOLD 23:20 → 2ND 02-21 13:40
PROVIDERS: ADMIT Hospitalist; ATTEND Hospitalist
DX: R07.9 Chest pain, unspecified (principal); I12.0 Hypertensive chronic kidney disease with stage 5 chronic kidney disease or end stage renal disease; N18.6 End stage renal disease; M32.9 Systemic lupus erythematosus, unspecified; I25.10 Atherosclerotic heart disease of native coronary artery without angina pectoris; F32.9 Major depressive disorder, single episode, unspecified; Z95.1 Presence of aortocoronary bypass graft; Z79.82 Long term (current) use of aspirin; Z99.2 Dependence on renal dialysis; Z95.2 Presence of prosthetic heart valve
CPT/HCPCS: 93005 ×2; 93017; 93306; 85025 ×2; 80048 ×2; 36415; 83735; 85610; 80061; 80076; 84484 ×3; 83880; 71045; 78452; 99285; J1650 ×2; J2785; A9500; G0378 ×2; 81003; 81015

== ENCOUNTER 2019-03-16 17:04 | Inpatient (IN) | payer OTHER ==
--- OUTSIDE RECORDS SUMMARY | 2019-03-16 17:08 | XMS REPORT | Clinical Summary ---
:1950 Author Organization [facility] Address [address] [place] [address] Care Team Providers Name Role Phone Nghia [...] 0 Active eye as needed. 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 disease) ([facility]) (Primary Dx) 11/23/2018 Telephone Transplant Eleni Hartley Appointment 11/23/2018 Telephone Transplant Eleni Hartley Appointment 11/18/2018 Documentation Transplant Zaid FransiscaJAY trejo 11/16/2018 Hospital Encounter Transplant Melchor Ornelas ESRD (end stage Osama, MD renal disease) Min Richardson ([facility]) MD Javier 11/13/2018 Lab Lab Melchor Ornelas ESRD (end stage Osama, MD renal disease) ([facility]) (Primary Dx) 11/12/2018 Lab Lab Melchor Ornelas ESRD (end stage Osama, MD renal disease) ([facility]) 11/10/2018 Lab Lab Melchor Ornelas ESRD (end stage Osama, MD renal disease) ([facility]) 11/10/2018 Hospital Encounter Transplant Melchor Ornelas ESRD (end stage Osama, MD renal disease) Min Richardson ([facility]) MD Javier 11/10/2018 Documentation Transplant Echo Powers Occult (09:20am Sp w/pt dtr Bertha & she will bring stool cards on Wednesday11/16/18. ) 11/09/2018 Hospital Encounter Radiology Podder, Hemangshu, ESRD (end stage MD renal disease) ([facility]) 11/09/2018 Hospital Encounter Radiology Podder, Hemangshu, ESRD (end stage MD renal disease) ([facility]) 11/09/2018 Hospital Encounter Transplant Podder, Hemangshu, ESRD (end stage MD renal disease) ([facility]) 11/09/2018 Hospital Encounter Transplant Min Richardson MD 11/09/2018 Hospital Encounter Transplant Min Richardson MD 11/09/2018 Hospital Encounter Transplant Min Richardson MD Guerrero, Alex 11/09/2018 Hospital Encounter Procedural Podder, Hemangshu, ESRD (end stage Cardiology MD renal disease) ([facility]) 10/31/2018 Documentation Transplant Heri, Consent Forms Rocio (Scanned Consent For Kidney Transplant Evaluation, Pre Txp Education & IWONA forms in Media. 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 Last Filed Vital Signs Vital Sign Reading Time Taken Blood Pressure 136/65 10/27/2018 7:33 AM [facility] Pulse 64 10/27/2018 7:33 AM [facility] Temperature 35.8 C (96.4 F) 10/27/2018 7:31 AM [facility] Respiratory Rate 16 10/27/2018 7:33 AM [facility] Oxygen Saturation 94% 10/27/2018 7:33 AM [facility] Inhaled Oxygen Concentration - - Weight 79.8 kg (176 lb) 11/10/2018 3:15 PM [facility] Height 167.6 cm (5' 6") 11/10/2018 3:15 PM [facility] Body Mass Index 28.41 11/10/2018 3:15 PM [facility] Plan of Treatment Health Maintenance Due Date [...] ESRD (end stage Results for this AM [facility] renal disease) procedure are in ([facility]) the results section. OCCULT BLOOD, STOOL Routine 11/12/2018 10:00 ESRD (end stage Results for this AM [facility] renal disease) procedure are in ([facility]) the results section. OCCULT BLOOD, STOOL Routine 11/10/2018 10:00 ESRD (end stage Results for this AM [facility] renal disease) procedure are in ([facility]) the results section. RADHA TITER Routine 11/10/2018 8:12 Results for this AM [facility] procedure are in the results section. C1Q CLASS 1 & 2 ANTIBODY Routine 11/10/2018 8:12 Results for this AM [facility] procedure are in the results section. HLA AUTOLOGOUS Routine 11/10/2018 8:12 Results for this CROSSMATCH AM [facility] procedure are in the results section. SINGLE ANTIGEN BEADS Routine 11/10/2018 8:12 Results for this AM [facility] procedure are in the results section. LOW RESOLUTION FULL Routine 11/10/2018 8:12 Results for this TYPING BY SSO AM [facility] procedure are in the results section. ESTIMATED GFR Routine 11/10/2018 8:12 Results for this AM [facility] procedure are in the results section. DNA AB SCREEN Routine 11/10/2018 8:12 ESRD (end stage Results for this AM [facility] renal disease) procedure are in ([facility]) the results section. CARDIOLIPIN ANTIBODIES Routine 11/10/2018 8:12 ESRD (end stage Results for this AM [facility] renal disease) procedure are in ([facility]) the results section. C4 COMPLEMENT COMPONENT Routine 11/10/2018 8:12 ESRD (end stage Results for this AM [facility] renal disease) procedure are in ([facility]) the results section. C3 COMPLEMENT COMPONENT Routine 11/10/2018 8:12 ESRD (end stage Results for this AM [facility] renal disease) procedure are in ([facility]) the results section. C1Q COMPLEMENT COMPONENT Routine 11/10/2018 8:12 ESRD (end stage Results for this AM [facility] renal disease) procedure are in ([facility]) the results section. HARTLEY ANTIBODY Routine 11/10/2018 8:12 ESRD (end stage Results for this AM [facility] renal disease) procedure are in ([facility]) the results section. GLOMERULAR BASEMENT Routine 11/10/2018 8:12 ESRD (end stage Results for this MEMBRANE AB IGG (IFA) AM [facility] renal disease) procedure are in ([facility]) the results section. RADHA Routine 11/10/2018 8:12 ESRD (end stage Results for this AM [facility] renal disease) procedure are in ([facility]) the results section. ABORH - TRANSPLANT Routine 11/10/2018 8:12 ESRD (end stage Results for this AM [facility] renal disease) procedure are in ([facility]) the results section. PARATHYROID HORMONE Routine 11/10/2018 8:12 ESRD (end stage Results for this AM [facility] renal disease) procedure are in ([facility]) the results section. HSV TYPE 1/2 COMBINED Routine 11/10/2018 8:12 ESRD (end stage Results for this AB, IGM AM [facility] renal disease) procedure are in ([facility]) the results section. HSV 1 & 2 GLYCOPROTEIN G Routine 11/10/2018 8:12 ESRD (end stage Results for this AB, IGG AM [facility] renal disease) procedure are in ([facility]) the results section. HERPES SIMPLEX VIRUS BY Routine 11/10/2018 8:12 ESRD (end stage Results for this PCR AM [facility] renal disease) procedure are in ([facility]) the results section. LAUREEN-WEBSTER VIRUS Routine 11/10/2018 8:12 ESRD (end stage Results for this ANTIBODY TEST AM [facility] renal disease) procedure are in ([facility]) the results section. CYTOMEGALOVIRUS AB, IGM Routine 11/10/2018 8:12 ESRD (end stage Results for this AM [facility] renal disease) procedure are in ([facility]) the results section. CYTOMEGALOVIRUS AB, IGG Routine 11/10/2018 8:12 ESRD (end stage Results for this AM [facility] renal disease) procedure are in ([facility]) the results section. HEMOGLOBIN A1C Routine 11/10/2018 8:12 ESRD (end stage Results for this AM [facility] renal disease) procedure are in ([facility]) the results section. LDH Routine 11/10/2018 8:12 ESRD (end stage Results for this AM [facility] renal disease) procedure are in ([facility]) the results section. PHOSPHORUS LEVEL Routine 11/10/2018 8:12 ESRD (end stage Results for this AM [facility] renal disease) procedure are in ([facility]) the results section. CREATININE LEVEL Routine 11/10/2018 8:12 ESRD (end stage Results for this AM [facility] renal disease) procedure are in ([facility]) the results section. FASTING GLUCOSE LEVEL Routine 11/10/2018 8:12 ESRD (end stage Results for this AM [facility] renal disease) procedure are in ([facility]) the results section. TRIGLYCERIDES Routine 11/10/2018 8:12 ESRD (end stage Results for this AM [facility] renal disease) procedure are in ([facility]) the results section. CHOLESTEROL Routine 11/10/2018 8:12 ESRD (end stage Results for this AM [facility] renal disease) procedure are in ([facility]) the results section. US RENAL Routine 11/09/2018 12:57 ESRD (end stage Results for this PM [facility] renal disease) procedure are in ([facility]) the results section. XR CHEST 2 VW Routine 11/09/2018 12:28 ESRD (end stage Results for this PM [facility] renal disease) procedure are in ([facility]) the results section. ECHOCARDIOGRAM 2D Routine 11/09/2018 9:00 ESRD (end stage Results for this COMPLETE W MMODE AM [facility] renal disease) procedure are in SPECTRAL COLOR DOPPLER ([facility]) the results (30969) section. ECG 12-LEAD Routine 11/09/2018 7:42 ESRD (end stage Results for this AM [facility] renal disease) procedure are in ([facility]) the results section. ESTIMATED GFR Routine 10/27/2018 11:15 Results for this AM [facility] procedure are in the results section. SERUM ELECTROPHORESIS Routine 10/27/2018 11:15 ESRD (end stage Results for this AM [facility] renal disease) procedure are in ([facility]) the results section. C-PEPTIDE Routine 10/27/2018 11:15 ESRD (end stage Results for this AM [facility] renal disease) procedure are in ([facility]) the results section. TB T-SPOT Routine 10/27/2018 11:15 ESRD (end stage Results for this AM [facility] renal disease) procedure are in ([facility]) the results section. NICOTINE AND Routine 10/27/2018 11:15 ESRD (end stage Results for this METABOLITES, SERUM AM [facility] renal disease) procedure are in ([facility]) the results section. URINE DRUGS OF ABUSE Routine 10/27/2018 11:15 ESRD (end stage Results for this SCREEN AM [facility] renal disease) procedure are in ([facility]) the results section. ABORH - TRANSPLANT Routine 10/27/2018 11:15 ESRD (end stage Results for this AM [facility] renal disease) procedure are in ([facility]) the results section. PARTIAL THROMBOPLASTIN Routine 10/27/2018 11:15 ESRD (end stage Results for this TIME (PTT) AM [facility] renal disease) procedure are in ([facility]) the results section. PROTHROMBIN TIME WITH Routine 10/27/2018 11:15 ESRD (end stage Results for this INR AM [facility] renal disease) procedure are in ([facility]) the results section. HC COMPLETE BLD COUNT Routine 10/27/2018 11:15 ESRD (end stage Results for this W/AUTO DIFF AM [facility] renal disease) procedure are in ([facility]) the results section. SYPHILIS TREPONEMAL IGG Routine 10/27/2018 11:15 ESRD (end stage Results for this AM [facility] renal disease) procedure are in ([facility]) the results section. HEPATITIS C ANTIBODY Routine 10/27/2018 11:15 ESRD (end stage Results for this AM [facility] renal disease) procedure are in (HCC) the results section. HEPATITIS B SURFACE AB, Routine 10/27/2018 11:15 ESRD (end stage Results for this QUANTITATIVE AM [facility] renal disease) procedure are in ([facility]) the results section. HEPATITIS B SURFACE Routine 10/27/2018 11:15 ESRD (end stage Results for this ANTIGEN AM [facility] renal disease) procedure are in ([facility]) the results section. HEPATITIS B SURFACE Routine 10/27/2018 11:15 ESRD (end stage Results for this ANTIBODY AM [facility] renal disease) procedure are in ([facility]) the results section. HEPATITIS B CORE Routine 10/27/2018 11:15 ESRD (end stage Results for this ANTIBODY TOTAL AM [facility] renal disease) procedure are in ([facility]) the results section. HEPATITIS A ANTIBODY Routine 10/27/2018 11:15 ESRD (end stage Results for this TOTAL AM [facility] renal disease) procedure are in ([facility]) the results section. HIV AG/AB COMBINATION Routine 10/27/2018 11:15 ESRD (end stage Results for this AM [facility] renal disease) procedure are in ([facility]) the results section. URINALYSIS SCREEN AND Routine 10/27/2018 11:15 ESRD (end stage Results for this MICROSCOPY, WITH REFLEX AM [facility] renal disease) procedure are in TO CULTURE ([facility]) the results section. COMPREHENSIVE METABOLIC Routine 10/27/2018 11:15 ESRD (end stage Results for this PANEL AM [facility] renal disease) procedure are in ([facility]) the results section. URINE CULTURE Routine 10/27/2018 11:15 Results for this AM [facility] procedure are in the results section. after 03/15/2018 Results Occult blood, stool (11/13/2018 11:05 AM [facility]HER)Only the most recent of3 resultswithin the time period is included. Occult blood, stool Negative for occult blood. [facility] Comment: Specimen Information Specimen Source: Stool Specimen Site: Nonpreserved Specimen Stool - Nonpreserved Performing Organization Address City/[facility]/Zipcode Phone Number [facility] DEPARTMENT OF PATHOLOGY AND [address] [place] [phone] Hartley antibody (11/10/2018 8:12 AM [facility]) Hartley antibody <0.2 0.0 - 0.9 [facility] Hartley antibody interp Negative [facility] Comment: HOSPITAL Anti-Hartley antibodies occurs in 30-35% of systemic lupus erythematosus (SLE) cases, but is very specific for SLE. It may also present in mixed connective-tissue disease (MCTD). Specimen Serum Performing Organization Address City/[facility] Phone Number [facility] DEPARTMENT OF PATHOLOGY AND [address] [place] [phone] Low resolution full typing by SSO (11/10/2018 8:12 AM [facility]) [facility] DEPARTMENT OF PATHOLOGY AND GENOMIC MEDICINE Low resolution full typing See link below for PDF [facility] DEPARTMENT OF by SSO Lab Report PATHOLOGY AND GENOMIC MEDICINE Performing Organization Address [facility] Cent[facility] Phone Number [facility] DEPARTMENT OF PATHOLOGY AND [address] [place] [address] C1Q class 1 & 2 antibody (11/10/2018 8:12 AM BOTTOM BRUSHER) [facility] DEPARTMENT OF PATHOLOGY AND GENOMIC MEDICINE C1Q class 1 & 2 antibody See link below for PDF [facility] DEPARTMENT OF PATHOLOGY Lab Report AND GENOMIC MEDICINE Performing Organization Address City/[facility] Phone Number [facility] DEPARTMENT OF PATHOLOGY AND [address] [place] [address] Estimated GFR (11/10/2018 8:12 AM [facility])Only the most recent of2 resultswithin the time period is included. Estimated GFR 9 (A) mL/min/1.73 m2 [facility] Comment: HOSPITAL CatergoryUnitsInterpretation G1 >=90 Normal or high G2 60-89Mildly decreased A3x84-88Kusfgv to moderately decreased A6j93-28Sfcknekpst to severely decreased G4 15-29Severely decreased G5 <15Kidney failure The eGFR was calculated using the Chronic Kidney Disease Epidemiology Collaboration (CKD-EPI) equation. Interpretation is based on recommendations of the National Kidney Foundation-Kidney Disease Outcomes Quality Initiative (NKF-KDOQI) published in 2014. Specimen Plasma specimen Performing Organization Address City/State/[facility] Cent[facility]ode Phone Number [facility] DEPARTMENT OF PATHOLOGY AND [address] [place] [address] HSV 1 & 2 glycoprotein G Ab, IgG (11/10/2018 8:12 AM [facility]HER) HSV 1 glycoprotein G Ab, Positive (A) Negative [facility] IgG Comment: HOSPITAL Positive results may indicate current or past HSV infection. For acute illness, viral PCR and IgM testing are recommended. Individuals infected with HSV may not exhibit detectable antibodies in cases of early infection. HSV 2 glycoprotein G Ab, NegativeComment: Negative [facility] IgG Negative: No IgG HOSPITAL antibodies to HSV2 detected. Specimen Serum Performing Organization Address [facility] Phone Number [facility] DEPARTMENT OF PATHOLOGY AND [address] [place] [phone] Laureen-Webster virus antibody test (11/10/2018 8:12 AM B[facility]USHER) EBV Ab to viral capsid Ag, Positive (A) Negative [facility] IgG [facility] EBV Ab to viral capsid Ag, Negative Negative [facility] IgM [facility] EBV Ab to nuclear Ag, IgG Positive (A) Negative [facility] EBV Ab to early (D) Ag, IgG Positive (A) Negative [facility] Laureen-Webster virus antibody SEE COMMENT [facility] interpretation Comment: HOSPITAL Infection Status: Results may suggest EBV reactivation, although a recent primary EBV infection is not excluded. Specimen Serum Performing Organization Address City/[facility] Cent[facility] Phone Number [facility] DEPARTMENT OF PATHOLOGY AND [address] [place] [address] Single antigen beads (11/10/2018 8:12 AM BOTTOM BRUSHER) [facility] DEPARTMENT OF PATHOLOGY AND [facility] MEDICINE Single antigen beads See link below for PDF [facility] DEPARTMENT OF PATHOLOGY Lab Report AND GENOMIC MEDICINE Performing Organization Address City/[facility]/Zipcode Phone Number [facility] DEPARTMENT OF PATHOLOGY AND [address] [place] [address] HSV type 1/2 combined Ab, IgM (11/10/2018 8:12 AM BOTTOM BRUSHER) HSV 1/2 combined Ab, IgM 0.60 <=0.89 IV [facility] Comment: INTERPRETIVE INFORMATION: Herpes [...] than 12 months post- infection. Performed by [employer], [address] [place] [phone] www.[employer], Camilo Braun MD - Lab. Director Specimen Serum Performing Organization Address [facility] Centercode Phone Number [facility] [address] [place] [address] [facility] [address] [place] [address] HLA autologous crossmatch, AHG (11/10/2018 8:12 AM BOTTOM BRUSHER) [facility] DEPARTMENT OF PATHOLOGY AND GENOMIC MEDICINE HLA autologous crossmatch See link below for PDF [facility] DEPARTMENT OF Lab Report PATHOLOGY AND GENOMIC MEDICINE Performing Organization Address City/[facility]/Zipcode Phone Number [facility] DEPARTMENT OF PATHOLOGY AND [address] [place] [address] Herpes simplex virus by PCR (11/10/2018 8:12 AM BOTTOM BRUSHER) Herpes virus, PCR Not-Detected Not-Detected [facility] Herpes virus, PCR See link below for PDF Lab [facility] ReportComment: Performing Organization Address City/State/Zipcode Phone Number [facility] DEPARTMENT OF PATHOLOGY AND [address] [place] [address] Glomerular basement membrane Ab IgG (IFA) (11/10/2018 8:12 AM BOTTOM BRUSHER) Glomerular basement Negative Negative [facility] [...] biopsy. Test developed and characteristics determined by [employer]. See Compliance Statement D: [employer]/ Performed by [employer], [address] [place] [phone] www[email or web address], Camilo Braun MD - Lab. Director Specimen Serum Performing Organization Address City/[facility] Cent[facility]ode Phone Number [facility] [address] [place] [address] [facility] [address] [place] [address] DNA Ab screen (11/10/2018 8:12 AM BOTTOM BRUSHER) DNA Ab screen Not Detected Not-Detected [facility] Specimen Blood Performing Organization Address City/[facility] Phone Number [facility] DEPARTMENT OF PATHOLOGY AND [address] [place] [phone] C1q complement component (11/10/2018 8:12 AM BOTTOM BRUSHER) C1q complement 215 109 - 242 ug/mL [facility] Comment: Performed by [employer], [address] [place] [phone] www[email or web address], Camilo Braun MD - Lab. Director Specimen Blood Performing Organization Address City/[facility] Cent[facility]ode Phone Number [facility] [address] [place] [address] [facility] [address] [place] [address] Cytomegalovirus Ab, IgM (11/10/2018 8:12 AM BOTTOM BRUSHER) Cytomegalovirus Ab, IgM Negative Negative [facility] Specimen Serum Performing Organization Address City/[facility] Phone Number [facility] DEPARTMENT OF PATHOLOGY AND [address] [place] [phone] RADHA titer (11/10/2018 8:12 AM BOTTOM BRUSHER) RADHA titer 1:320 (A) Not-Detected [facility] RADHA pattern Atypical speckled (A) Not-Detected [facility] Specimen Blood Performing Organization Address City/[facility] Phone Number [facility] DEPARTMENT OF PATHOLOGY AND [address] [place] [phone] [address] ABORh - transplant (11/10/2018 8:12 AM BOTTOM BRUSHER)Only the most recent of2 resultswithin the time period is included. ABO grouping O [facility] Rh type POS [facility] Specimen Blood Performing Organization Address City/[facility] Phone Number [facility] DEPARTMENT OF PATHOLOGY AND [address] [place] [phone] [address] Cytomegalovirus Ab, IgG (11/10/2018 8:12 AM BOTTOM BRUSHER) Cytomegalovirus Ab, IgG Positive (A) Negative [facility] Comment: Positive; IgG antibody to CMV detected which may indicate exposure to CMV infection. Specimen Serum Performing Organization Address [facility] Centercode Phone Number [facility] DEPARTMENT OF PATHOLOGY AND [address] [place] [phone] [address] Cardiolipin antibodies (11/10/2018 8:12 AM BOTTOM BRUSHER) Cardiolipin IgG 1 0 - [address] [facility] Comment: Negative=<15 GPL Indeterminate=15-20 GPL Positive=>20 GPL Cardiolipin IgM 4 0 - [address] [facility] Comment: Negative=<13 MPL Indeterminate=13-20 MPL Positive=>20 MPL Specimen Blood Performing Organization Address City/[facility]/Zipcode Phone Number [facility] DEPARTMENT OF PATHOLOGY AND [address] [place] [phone] [address] C3 complement component (11/10/2018 8:12 AM BOTTOM BRUSHER) C3 complement 92 90 - 180 mg/dL [facility] Specimen Plasma specimen Performing Organization Address City/[facility] Phone Number [facility] DEPARTMENT OF PATHOLOGY AND [address] [place] [phone] [address] C4 complement component (11/10/2018 8:12 AM BOTTOM BRUSHER) C4 complement 40 10 - 40 mg/dL [facility] Specimen Plasma specimen Performing Organization Address City/[facility] Phone Number [facility] DEPARTMENT OF PATHOLOGY AND [address] [place] [phone] [address] RADHA (11/10/2018 8:12 AM BOTTOM BRUSHER) RADHA screen Positive (A) Negative [facility] Comment: Cytoplasmic staining was observed. Fluorescence in the cytoplasm may be seen in patients with polymyositis and dermatomyositis, primary biliary cirrhosis , scleroderma and systemic sclerosis, systemic lupus erythematosus, and autoimmune hepatitis. Clinical correlation is recommended Specimen Blood Performing Organization Address [facility] Cent[facility]ode Phone Number [facility] DEPARTMENT OF PATHOLOGY AND [address] [place] [phone] [place] [address] Triglycerides (11/10/2018 8:12 AM BOTTOM BRUSHER) Triglycerides 119 <150 mg/dL [facility] Specimen Plasma specimen Performing Organization Address City/[facility] Centercode Phone Number [facility] DEPARTMENT OF PATHOLOGY AND [address] [place] [phone] [place] [phone] Phosphorus level (11/10/2018 8:12 AM BOTTOM BRUSHER) Phosphorus 4.6 (H) 2.4 - 4.5 mg/dL [facility] Specimen Plasma specimen Performing Organization Address City/[facility] Centercode Phone Number [facility] DEPARTMENT OF PATHOLOGY AND [address] [place] [phone] [address] Parathyroid hormone (11/10/2018 8:12 AM BOTTOM BRUSHER) PTH 339 (H) 15 - 65 pg/mL [facility] Specimen Blood Performing Organization Address [facility] Centercode Phone Number [facility] DEPARTMENT OF PATHOLOGY AND [address] [place] [phone] [address] LDH (11/10/2018 8:12 AM BOTTOM BRUSHER) LDH 334 (H) 87 - 225 U/L [facility] Specimen Plasma specimen Performing Organization Address City/[facility] Cent[facility]ode Phone Number [facility] DEPARTMENT OF PATHOLOGY AND [address] [place] [address] Hemoglobin A1c (11/10/2018 8:12 AM BOTTOM BRUSHER) Hemoglobin A1C 5.5 4.0 - 5.6 % [facility] Comment: HbA1c cutoffs for diagnosing diabetes: 4.0% - 5.6%=normal 5.7% - 6.4%=increased risk for diabetes (prediabetes) >=6.5%=diabetes Goals for glycemic control (ADA 2016) < 7.0%Target for non adults with diabetes. More or less stringent targets may be appropriate for individual patients. <7.5% Target for Children and adolescents with type 1 diabetes. Specimen Blood Performing Organization Address [facility] Centercode Phone Number [facility] DEPARTMENT OF PATHOLOGY AND [address] [place] [address] Fasting glucose level (11/10/2018 8:12 AM BOTTOM BRUSHER) Glucose, fasting 101 (H) 65 - 99 mg/dL [facility] Specimen Blood Performing Organization Address [facility] Phone Number [facility] DEPARTMENT OF PATHOLOGY AND [address] [place] [phone] Creatinine level (11/10/2018 8:12 AM BOTTOM BRUSHER) Creatinine 4.75 (H) 0.50 - 0.90 mg/dL [facility] Specimen Plasma specimen Performing Organization Address City/[facility] Centercode Phone Number [facility] DEPARTMENT OF PATHOLOGY AND [address] [place] [address] Cholesterol (11/10/2018 8:12 AM BOTTOM BRUSHER) Cholesterol 142 <200 mg/dL [facility] Specimen Plasma specimen Performing Organization Address City/[facility] Centercode Phone Number [facility] DEPARTMENT OF PATHOLOGY AND [address] [place], [place] [address] [place] [address] US Renal (11/09/2018 12:57 PM BOTTOM BRUSHER) Narrative Performed At EXAMINATION:US RENAL RADIANT CLINICAL [...] findings and agree with the final report. [id number] Procedure Note Hm Interface, Radiology Results Incoming - 11/09/2018 4:53 PM BOTTOM BRUSHER EXAMINATION: US RENAL CLINICAL HISTORY: N18.6 End [...] findings and agree with the final report. [id number]-[id number] Performing Organization Address [facility]/[employer] Phone Number [facility] [address] [place] [address] XR Chest 2 Vw (11/09/2018 12:28 PM BOTTOM BRUSHER) Narrative Performed At EXAMINATION:XR CHEST 2 [facility] CLINICAL H[facility]: N18.6 End stage renal [...] pneumothorax noted. Visualized osseous structures are intact. [id number] Procedure Note Interface, Radiology Results Incoming - 11/09/2018 12:50 PM BOTTOM BRUSHER EXAMINATION: XR CHEST 2 VW CLINICAL HISTORY: [...] pneumothorax noted. Visualized osseous structures are intact. [facility]-[id number] Performing Organization Address [facility] Phone Number [facility] [address] [place] [address] Echocardiogram complete w contrast and 3D if needed (11/09/2018 9:00 AM BOTTOM BRUSHER) Narrative Performed At [facility] Echocardiography Report [address] [place] [address] Pat.Name:DMITRIY SIEGEL [facility].ID:[id number] .Date: 11/09/2018Refer.MD:LILLY PRO MD Exam Time: 7:57:00 AMStudy Type:Routine Echo Height:66inWeight: 176lb BSA: 1.9 o6GFRLnk:1950,68Y Sex: FEMALEBP:117/83 HR:66 bpm Sonogrphr: Clarisse Costa RDCS, RVLivan Pat. Stat.:OutpatientRoom:[facility] 26 Study Status:Final Echo Event ID:[id number] Order ID:[id number] Reason for Study:Renal Transplant Evaluation History / [...] PA systolic pressure. MEASUREMENTS: 2D Parasternal Long [place] LVOT 2 cmLA Ds4.6 cm LVIDd4.9 cmIndex2.6 cm/m Ao An1.9 cm LVIDs3.4 cmAo Rtd 2.8 cm Index1.5 cm/m LV%fs 30.6 % LV Yxei197.4 g(87-129) IVSd 1.2 cmLVM Ledyy998.2 g/m2 LVPWd1 cmRWT0.6 LA Sng Plane LA Area 24 cm2(8.8-23.4) LA Vol73.2 ml Index38.5 ml/m LA LngAx 6.5 cm DOPPLER AV For Flow/SILVER AV pkVel 278.8 cm/s (100-170) AV AC/ET 0.3 AV mnVel 196.1 cm/Hayden TVI61.1 cm AV pkPG 31.1 mmHgAVpkAcRt 8739.5 cm/s2 AV Mean G 18.7 mmHgAV IvNm171.3 cm/s2 AV AC104 msec (83-118) AV Area1.1 cm2(3-5) AV ET311 msec LVOT For Flow LVOT Area3.1 cm2 LVOT SV 65.6 ml LVOTpkVel 94.4 cm/sHR59.3 bpm LVOTpkPG 3.6 mmHgLVOT CO3.9 l/min LVOTmnPG 1.9 mmHgLVOT CI2 l/m/m2 LVOT TVI20.9 cm Signed 11/09/2018 09:34 AM Ash Jeong MD Procedure Note Interface, Radiology Results In - 11/09/2018 9:34 AM [facility] Echocardiography Report [address] [place] [address] Pat.Name: DMITRIY SIEGEL Pat.ID: [id number] .Date: 11/09/2018 Refer.MD: LILLY PRO MD Exam Time: 7:57:00 AM Study Type:Routine Echo Height: 66in Weight: 176lb BSA: 1.9 m2 Age: 13 1950,68Y Sex: FEMALE BP: 117/83 HR: 66 bpm Sonogrphr: Clarisse Csota RDCS, RVT Pat. Stat.:Outpatient Room: [facility] Study Status:Final Echo Event ID:[id number] Order ID: [id number] Reason for Study:Renal Transplant Evaluation History / [...] PA systolic pressure. MEASUREMENTS: 2D Parasternal Long [place] LVOT 2 cm LA Ds 4.6 cm [...] AM Ash Jeong MD Performing Organization Address City/[facility] Phone Number [facility] [address] [place] [address] ECG 12 lead (11/09/2018 7:42 AM BOTTOM BRUSHER) Ventricular rate 59 [facility] MUSE Atrial rate 59 [facility] MT interval 188 [facility] QRSD interval 120 [facility] QT interval 512 [facility] M[facility] QTC interval 506 [facility] MUSE P axis 1 65 [facility] MUSE QRS axis 1 -26 [facility] MUSE T wave axis 100 [facility] EKG impression Sinus bradycardia-Left ventricular [facility] MUSE hypertrophy with QRS widening and repolarization abnormality-Abnormal ECG-No previous ECGs available- Narrative Performed At Performing Organization Address [facility] Phone Number [facility] MUSE [address] [place] [address] Syphilis treponemal IgG (10/27/2018 11:15 AM BOTTOM BRUSHER) Syphilis treponemal IgG Non-reactiveComment: Non-reactive [facility] Non-reactive: No HOSPITAL serological evidence of Syphilis infection Specimen Serum Performing Organization Address City/[facility]/Zipcode Phone Number [facility] DEPARTMENT OF PATHOLOGY AND [address] [place] [phone] [address] Urinalysis screen and microscopy, with reflex to culture (10/27/2018 11:15 AM BOTTOM BRUSHER) Specimen site Clean catch [facility] Color, UA Straw [facility] Appearance, UA Clear [facility] Specific gravity, UA 1.011 1.001 - 1.[address] [facility] pH, UA 7.0 5.0 - 8.[address] [facility] Protein, UA 3+ (A) Negative [facility] Glucose, UA 1+ (A) Negative [facility] Ketones, UA Negative Negative [facility] Bilirubin, UA Negative Negative [facility] Blood, UA Negative Negative [facility] Nitrite, UA Negative Negative [facility] Urobilinogen, UA <2.0 <2.[address] [facility] Leukocyte esterase, UA Negative Negative [facility] Epithelial cells, UA <1 /HPF [facility] WBC, UA None seen 0 - 4 /HPF [facility] RBC, UA <1 0 - 5 /HPF [facility] Bacteria, UA Few None seen [facility] Yeast, UA None seen [facility] Yeast with pseudohyphae, UA None seen [facility] Specimen Urine Performing Organization Address City/[facility]/Zipcode Phone Number [facility] DEPARTMENT OF PATHOLOGY AND [address] [place] [phone] [address] HIV Ag/Ab combination (10/27/2018 11:15 AM BOTTOM BRUSHER) HIV Ag/Ab combination Non-reactive Non-reactive [facility] Specimen Blood Performing Organization Address City/[facility]/Zipcode Phone Number [facility] DEPARTMENT OF PATHOLOGY AND [address] [place] [phone] [address] TB T-SPOT (10/27/2018 11:15 AM BOTTOM BRUSHER) TB T-SPOT SEE NOTE TMHRI - GRAVISS [...] FOR USE WITH T=SPOT.TB TEST. Performed by: [facility] Molecular Tuberculosis Laboratory [facility] ([id number]) [place] [address] Specimen Blood Performing Organization Address City/[facility] Centercode Phone Number [facility] DEPARTMENT OF PATHOLOGY AND [address] [place] [address] REF LAB Nicotine and metabolites, serum (10/27/2018 11:15 AM BOTTOM BRUSHER) Nicotine <2.0 0.0 - 2.0 ng/mL [facility] Cotinine <2.0 0.0 - 2.0 ng/mL [facility] 0-RK-osqtsfqg <5.0 0.0 - 5.0 ng/mL [facility] Comment: HOSPITAL This test was developed and its performance characteristics determined by the Department of Pathology and Genomic Medicine, [facility]. Serum nicotine and its metabolites cotinine and 3-QO-utimwtxy are tested by HPLC tandem mass spectrometry. It has not been cleared or approved by FDA. The laboratory is regulated under CLIA as qualified to perform high-complexity testing. This test is used for clinical purposes. It should not be regarded as investigational or for research. Specimen Blood Performing Organization Address City/[facility]/Zipcode Phone Number [facility] DEPARTMENT OF PATHOLOGY AND [address] [place] [address] Hepatitis B surface Ab, quantitative (10/27/2018 11:15 AM BOTTOM BRUSHER) Hepatitis B surface Ab <3.10 IU/L [facility] REF LAB Comment: The anti-HBs is [...] Cellular and Tissue-Based Products (HCT/P). Performed by [employer], [address] [place] [phone] [email or web address], Camilo Braun MD - Lab. Director Specimen Serum Performing Organization Address [facility] Centercode Phone Number [facility] [address] [place] [address] [facility] REF LAB [address] [place] [address] Hepatitis C antibody (10/27/2018 11:15 AM BOTTOM BRUSHER) Hepatitis C Ab Non-reactive Non-reactive [facility] Specimen Blood Performing Organization Address [facility] Centercode Phone Number [facility] DEPARTMENT OF PATHOLOGY AND [address] [place] [address] Hepatitis A antibody total (10/27/2018 11:15 AM BOTTOM BRUSHER) Hepatitis A total Ab Non-reactive Non-reactive [facility] Specimen Blood Performing Organization Address [facility] Centercode Phone Number [facility] DEPARTMENT OF PATHOLOGY AND [address] [place] [address] Hepatitis B core antibody total (10/27/2018 11:15 AM BOTTOM BRUSHER) Hepatitis B core total Ab Non-reactive Non-reactive [facility] Specimen Blood Performing Organization Address City/[facility]ode Phone Number [facility] DEPARTMENT OF PATHOLOGY AND [address] [place] [phone] [place] [phone] C-peptide (10/27/2018 11:15 AM BOTTOM BRUSHER) C-peptide 8.5 (H) 1.1 - 4.4 ng/mL [facility] Specimen Plasma specimen Performing Organization Address [facility] Centercode Phone Number [facility] DEPARTMENT OF PATHOLOGY AND [address] [place] [phone] [address] Urine drugs of abuse screen (10/27/2018 11:15 AM BOTTOM BRUSHER) Amphetamine screen, urine Negative [facility] Barbiturate screen, urine Negative [facility] Benzodiazepine screen, Negative [facility] Cannabinoid screen, urine Negative [facility] Cocaine screen, urine Negative [facility] Methadone metabolite Negative [facility] (EDDP), urine [facility] Opiates screen, urine Negative [facility] Oxycodone screen, urine Negative [facility] Phencyclidine screen, urine Negative [facility] Tricyclic screen, urine Negative [facility] Comment: HOSPITAL Drug screen minimum concentration of detectability Etkmjabnqzfg7780 ng/mL Barbiturates 200 ng/mL Hieiojvxlnlvavu846 ng/mL Gkxfltv062 ng/mL Pgzvihlbq786 ng/mL Cndczws840 ng/mL Wjzunvgvm082 ng/mL Phencyclidine 25 ng/mL Gggzqwkpzzpr73 ng/mL Oaohlikrth0440 ng/mL Negative test results indicates presumptive evidence of lack of clinically significant drug concentration in this urine specimen. Positive test results are presumptive evidence of clinically significant drug concentration in this urine specimen. Testing performed for medical purposes only. Specimen Urine Performing Organization Address City/[facility] Centercode Phone Number [facility] DEPARTMENT OF PATHOLOGY AND [address] [place] [phone] [address] Hepatitis B surface antibody (10/27/2018 11:15 AM BOTTOM BRUSHER) Hepatitis B surface Ab Non-reactive Non-reactive [facility] Specimen Blood Performing Organization Address City/[facility]/Zipcode Phone Number [facility] DEPARTMENT OF PATHOLOGY AND [address] [place] [address] [place] [address] [place] [address] Hepatitis B surface antigen (10/27/2018 11:15 AM BOTTOM BRUSHER) Hepatitis B surface Ag Non-reactive Non-reactive [facility] Specimen Blood Performing Organization Address City/State/Zipcode Phone Number [facility] DEPARTMENT OF PATHOLOGY AND [address] [place] [phone] [address] Partial thromboplastin time, activated (10/27/2018 11:15 AM BOTTOM BRUSHER) PTT 30.7 23.0 - 36.[address] [facility] Comment: PTT therapeutic range for unfractionated heparin is 61.0-112.0 seconds which corresponds to Anti-Xa 0.3-0.7 U/ml. Specimen Blood Performing Organization Address City/[facility]ode Phone Number [facility] DEPARTMENT OF PATHOLOGY AND [address] [place] [phone] [place] [address] Prothrombin time with INR (10/27/2018 11:15 AM BOTTOM BRUSHER) Prothrombin time 14.1 11.5 - 14.[address] [facility] INR 1.1 [facility] Comment: HOSPITAL The International Normalized Ratio (INR) is a therapeutic monitoring tool for patients who are stable on oral anticoagulant therapy. An INR of 2.0-3.0 is suggested for deep vein thrombosis/pulmonary embolism. Specimen Blood Performing Organization Address City/[facility] Phone Number [facility] DEPARTMENT OF PATHOLOGY AND [address] [place] [phone] [place] [address] CBC with platelet and differential (10/27/2018 11:15 AM BOTTOM BRUSHER) WBC 5.04 4.50 - 11.00 k/uL [facility] RBC 3.02 (L) 4.20 - 5.50 m/uL [facility] HGB 9.0 (L) 12.0 - 16.0 g/dL [facility] HCT 28.1 (L) 37.0 - 47.0 % [facility] MCV 93.0 82.0 - 100.[address] [facility] MCH 29.8 27.0 - 34.[address] [facility] MCHC 32.0 31.0 - 37.0 g/dL [facility] RDW - SD 45.1 37.0 - 55.[address] [facility] MPV 10.8 8.8 - 13.[address] [facility] Platelet count 110 (L) 150 - 400 k/uL [facility] Nucleated RBC 0.00 /[address] [facility] Neutrophils 61.5 39.0 - 69.0 % [facility] Lymphocytes 23.6 (L) 25.0 - 45.0 % [facility] Monocytes 12.1 (H) 0.0 - 10.0 % [facility] Eosinophils 2.2 0.0 - 5.0 % [facility] Basophils 0.2 0.0 - 1.0 % [facility] Immature granulocytes 0.4Comment: "Immature 0.0 - 1.0 % [facility]" [facility] (promyelocytes, myelocytes, metamyelocytes) Specimen Blood Performing Organization Address City/[facility] Centercout Phone Number [facility] DEPARTMENT OF PATHOLOGY AND [address] [place] [address] Urine culture (10/27/2018 11:15 AM BOTTOM BRUSHER) Urine culture SEE COMMENTComment: Bacteriuria [facility] screen negative. Performing Organization Address City/[facility]out Phone Number [facility] DEPARTMENT OF PATHOLOGY AND [address] [place] [phone] Serum electrophoresis (10/27/2018 11:15 AM BOTTOM BRUSHER) Protein 6.4 6.3 - 8.3 g/dL [facility] Comment: HOSPITAL [place] 4.6-7.0 g/dL 1 week 4.4-7.6 g/dL 7 months-1year5.1-7.3 g/dL 1-2 years5.6-7.5 g/dL >3 years6.0-8.0 g/dL 18-150 6.3-8.3 g/dL SPE albumin 3.99 (L) 4.00 - 5.30 g/dL [facility] SPE alpha 1 0.18 0.10 - 0.25 g/dL [facility] SPE alpha 2 0.81 0.58 - 0.84 g/dL [facility] SPE beta 0.62 0.50 - 1.10 g/dL [facility] SPE gamma 0.80 0.60 - 1.30 g/dL [facility] SPE extended See CommentComment: An [facility] interpretation essentially normal [facility] serum protein study. SPE interpretation See CommentComment: [facility] Melchor Cotton MD; [facility] Sami Barrow, PhD; Bret Gutiérrez MD, PhD Specimen Serum Performing Organization Address City/State/Zipcode Phone Number [facility] DEPARTMENT OF PATHOLOGY AND [address] [place] [phone] GENOMIC MEDICINE [facility] [address] [place] [address] Comprehensive metabolic panel (10/27/2018 11:15 AM BOTTOM BRUSHER) Sodium 145 135 - 148 mEq/L [facility] Potassium 3.7 3.5 - 5.0 mEq/L [facility] Chloride 105 98 - 112 mEq/L [facility] CO2 25 24 - 31 mEq/L [facility] Anion gap 15@ANIO 7 - 15 mEq/L [facility] BUN 54 (H) 8 - 23 mg/dL [facility] Creatinine 3.73 (H) 0.50 - 0.90 mg/dL [facility] Glucose 106 (H) 65 - 99 mg/dL [facility] Calcium 9.2 8.8 - 10.2 mg/dL [facility] Protein 6.6 6.3 - 8.3 g/dL [facility] Comment: HOSPITAL [place] 4.6-7.0 g/dL 1 week 4.4-7.6 g/dL 7 months-1year5.1-7.3 g/dL 1-2 years5.6-7.5 g/dL >3 years6.0-8.0 g/dL 18-150 6.3-8.3 g/dL Albumin 3.2 (L) 3.5 - 5.0 g/dL [facility] A/G ratio 0.9 0.7 - 3.[address] [facility] Alkaline phosphatase 94 35 - 104 U/L [facility] AST 25 10 - 35 U/L [facility] ALT 11 5 - 50 U/L [facility] Total bilirubin <0.2 0.0 - 1.2 mg/dL [facility] Specimen Plasma specimen Performing Organization Address City/State/Zipcode Phone Number [facility] DEPARTMENT OF PATHOLOGY AND [address] [place] [address] [facility] [address] [place] [address] after 03/15/2018 Insurance Payer Benefit Plan / Group Subscriber ID Type Phone Address MEDICARE MEDICARE PART A AND B xxxxxxxxxxx Medicare [place], [place] [address] [place] [id number] Dmitriy Siegel Transplant Self 1950 [address] [place] [id number] Advance Directives Patient has advance care planning documents on file. For more information, please contact:[facility] [place] [address]
--- OUTSIDE RECORDS SUMMARY | 2019-03-16 17:09 | XMS REPORT | Clinical Summary ---
:1950 Author Organization [facility] Address [address] [place] [address] Care Team Providers Name Role Phone Pcp, [...] . Active Problems Patient Care Coordination Note Call Box Wirer- Jong Cooper [phone] Water Resources Program Director- Miguel Guillen- [phone] [phone] Problem Noted Date Stage 4 chronic kidney [...] Laird 10/20/2018 Abstract Transplant Claire Dwyer after 03/15/2018 Family History Medical History Relation Name Comments [...] Taken Blood Pressure 147/77 11/30/2018 11:02 AM ASSET MANAGER Pulse 54 11/30/2018 11:02 AM ASSET MANAGER Temperature 36.3 C (97.4 F) 11/30/2018 11:02 AM ASSET MANAGER Respiratory Rate 18 11/30/2018 11:02 AM ASSET MANAGER Oxygen Saturation 96% 11/30/2018 11:02 AM ASSET MANAGER Inhaled Oxygen Concentration - - Weight 76.4 kg (168 lb 6.4 oz) 11/30/2018 11:02 AM ASSET MANAGER Height 167.6 cm (5' 6") 11/30/2018 11:02 AM ASSET MANAGER Body Mass Index 27.18 11/30/2018 11:02 AM ASSET MANAGER Plan of Treatment Not on file Procedures Procedure Name Priority Date/Time Associated Comments Diagnosis TRANSFUSION SERVICE 12/01/2018 6:04 REPORT - SCAN PM ASSET MANAGER CBC W/PLT COUNT & AUTO Routine 11/30/2018 8:10 Pre-transplant Results for this DIFFERENTIAL AM ASSET MANAGER evaluation for procedure are in chronic kidney the results disease section. Secondary hypertension Systemic lupus erythematosus, unspecified SLE type, unspecified organ involvement status (HCC) Anemia of renal disease DIRECT AHG (CANELO)/DIRECT Routine 11/30/2018 8:10 Pre-transplant Results for this NICHOLE AM ASSET MANAGER evaluation for procedure are in chronic kidney the results disease section. Secondary hypertension Systemic lupus erythematosus, unspecified SLE type, unspecified organ involvement status (HCC) Anemia of renal disease AB SPECIFICITY CLASS II Routine 11/30/2018 8:10 Pre-transplant Results for this AM ASSET MANAGER evaluation for procedure are in chronic kidney the results disease section. Secondary hypertension Systemic lupus erythematosus, unspecified SLE type, unspecified organ involvement status (HCC) Anemia of renal disease EQUAL MIX, NORMAL Routine 11/30/2018 8:10 Pre-transplant Results for this PLASMA AM ASSET MANAGER evaluation for procedure are in chronic kidney the results disease section. Secondary hypertension Systemic lupus erythematosus, unspecified SLE type, unspecified organ involvement status (HCC) Anemia of renal disease DOUBLE-STRANDED DNA Routine 11/30/2018 8:10 Pre-transplant Results for this (DSDNA) ANTIBODY AM ASSET MANAGER evaluation for procedure are in chronic kidney the results disease section. Secondary hypertension Systemic lupus erythematosus, unspecified SLE type, unspecified organ involvement status (HCC) Anemia of renal disease COMPLEMENT COMPONENT C4 Routine 11/30/2018 8:10 Pre-transplant Results for this AM ASSET MANAGER evaluation for procedure are in chronic kidney the results disease section. Secondary hypertension Systemic lupus erythematosus, unspecified SLE type, unspecified organ involvement status (HCC) Anemia of renal disease COMPLEMENT COMPONENT C3 Routine 11/30/2018 8:10 Pre-transplant Results for this AM ASSET MANAGER evaluation for procedure are in chronic kidney the results disease section. Secondary hypertension Systemic lupus erythematosus, unspecified SLE type, unspecified organ involvement status (HCC) Anemia of renal disease CARDIOLIPIN ANTIBODIES, Routine 11/30/2018 8:10 Pre-transplant Results for this IGG AND IGM AM ASSET MANAGER evaluation for procedure are in chronic kidney the results disease section. Secondary hypertension Systemic lupus erythematosus, unspecified SLE type, unspecified organ involvement status (HCC) Anemia of renal disease FLOW PRA CLASS II WITH Routine 11/30/2018 8:10 Pre-transplant Results for this REFLEX TO ANTIBODY AM ASSET MANAGER evaluation for procedure are in SPECIFICITY chronic kidney the results disease section. Secondary hypertension Systemic lupus erythematosus, unspecified SLE type, unspecified organ involvement status (HCC) Anemia of renal disease FLOW PRA CLASS I WITH Routine 11/30/2018 8:10 Pre-transplant Results for this REFLEX TO ANTIBODY AM ASSET MANAGER evaluation for procedure are in SPECIFICITY chronic kidney the results disease section. Secondary hypertension Systemic lupus erythematosus, unspecified SLE type, unspecified organ involvement status (HCC) Anemia of renal disease HLA TYPING CII Routine 11/30/2018 8:10 Pre-transplant Results for this AM ASSET MANAGER evaluation for procedure are in chronic kidney the results disease section. Secondary hypertension Systemic lupus erythematosus, unspecified SLE type, unspecified organ involvement status (HCC) Anemia of renal disease HLA TYPING CI Routine 11/30/2018 8:10 Pre-transplant Results for this AM ASSET MANAGER evaluation for procedure are in chronic kidney the results disease section. Secondary hypertension Systemic lupus erythematosus, unspecified SLE type, unspecified organ involvement status (HCC) Anemia of renal disease HEMOGLOBIN A1C Routine 11/30/2018 8:10 Pre-transplant Results for this AM ASSET MANAGER evaluation for procedure are in chronic kidney the results disease section. Secondary hypertension Systemic lupus erythematosus, unspecified SLE type, unspecified organ involvement status (HCC) Anemia of renal disease VARICELLA ZOSTER Routine 11/30/2018 8:10 Pre-transplant Results for this ANTIBODY, IGG AM ASSET MANAGER evaluation for procedure are in chronic kidney the results disease section. Secondary hypertension Systemic lupus erythematosus, unspecified SLE type, unspecified organ involvement status (HCC) Anemia of renal disease URINALYSIS W/ Routine 11/30/2018 8:10 Pre-transplant Results for this MICROSCOPIC AM ASSET MANAGER evaluation for procedure are in chronic kidney the results disease section. Secondary hypertension Systemic lupus erythematosus, unspecified SLE type, unspecified organ involvement status (HCC) Anemia of renal disease URIC ACID Routine 11/30/2018 8:10 Pre-transplant Results for this AM ASSET MANAGER evaluation for procedure are in chronic kidney the results disease section. Secondary hypertension Systemic lupus erythematosus, unspecified SLE type, unspecified organ involvement status (HCC) Anemia of renal disease T SPOT TB Routine 11/30/2018 8:10 Pre-transplant Results for this AM ASSET MANAGER evaluation for procedure are in chronic kidney the results disease section. Secondary hypertension Systemic lupus erythematosus, unspecified SLE type, unspecified organ involvement status (HCC) Anemia of renal disease RPR Routine 11/30/2018 8:10 Pre-transplant Results for this AM ASSET MANAGER evaluation for procedure are in chronic kidney the results disease section. Secondary hypertension Systemic lupus erythematosus, unspecified SLE type, unspecified organ involvement status (HCC) Anemia of renal disease PT/APTT Routine 11/30/2018 8:10 Pre-transplant Results for this AM ASSET MANAGER evaluation for procedure are in chronic kidney the results disease section. Secondary hypertension Systemic lupus erythematosus, unspecified SLE type, unspecified organ involvement status (HCC) Anemia of renal disease PTH, INTACT Routine 11/30/2018 8:10 Pre-transplant Results for this AM ASSET MANAGER evaluation for procedure are in chronic kidney the results disease section. Secondary hypertension Systemic lupus erythematosus, unspecified SLE type, unspecified organ involvement status (HCC) Anemia of renal disease PHOSPHORUS Routine 11/30/2018 8:10 Pre-transplant Results for this AM ASSET MANAGER evaluation for procedure are in chronic kidney the results disease section. Secondary hypertension Systemic lupus erythematosus, unspecified SLE type, unspecified organ involvement status (HCC) Anemia of renal disease LACTATE DEHYDROGENASE Routine 11/30/2018 8:10 Pre-transplant Results for this (LDH) AM ASSET MANAGER evaluation for procedure are in chronic kidney the results disease section. Secondary hypertension Systemic lupus erythematosus, unspecified SLE type, unspecified organ involvement status (HCC) Anemia of renal disease HIV-1 ANTIGEN WITH Routine 11/30/2018 8:10 Pre-transplant Results for this HIV-1/2 ANTIBODY AM ASSET MANAGER evaluation for procedure are in chronic kidney the results disease section. Secondary hypertension Systemic lupus erythematosus, unspecified SLE type, unspecified organ involvement status (HCC) Anemia of renal disease HEPATITIS C ANTIBODY Routine 11/30/2018 8:10 Pre-transplant Results for this AM ASSET MANAGER evaluation for procedure are in chronic kidney the results disease section. Secondary hypertension Systemic lupus erythematosus, unspecified SLE type, unspecified organ involvement status (HCC) Anemia of renal disease HEPATITIS B CORE Routine 11/30/2018 8:10 Pre-transplant Results for this ANTIBODY, IGM AM ASSET MANAGER evaluation for procedure are in chronic kidney the results disease section. Secondary hypertension Systemic lupus erythematosus, unspecified SLE type, unspecified organ involvement status (HCC) Anemia of renal disease HEPATITIS B SURFACE Routine 11/30/2018 8:10 Pre-transplant Results for this ANTIGEN AM ASSET MANAGER evaluation for procedure are in chronic kidney the results disease section. Secondary hypertension Systemic lupus erythematosus, unspecified SLE type, unspecified organ involvement status (HCC) Anemia of renal disease HEPATITIS B SURFACE Routine 11/30/2018 8:10 Pre-transplant Results for this ANTIBODY AM ASSET MANAGER evaluation for procedure are in chronic kidney the results disease section. Secondary hypertension Systemic lupus erythematosus, unspecified SLE type, unspecified organ involvement status (HCC) Anemia of renal disease GAMMA GLUTAMYL Routine 11/30/2018 8:10 Pre-transplant Results for this TRANSFERASE (GGT) AM ASSET MANAGER evaluation for procedure are in chronic kidney the results disease section. Secondary hypertension Systemic lupus erythematosus, unspecified SLE type, unspecified organ involvement status (HCC) Anemia of renal disease EBV ANTIBODY, IGM Routine 11/30/2018 8:10 Pre-transplant Results for this AM ASSET MANAGER evaluation for procedure are in chronic kidney the results disease section. Secondary hypertension Systemic lupus erythematosus, unspecified SLE type, unspecified organ involvement status (HCC) Anemia of renal disease EBV ANTIBODY, IGG Routine 11/30/2018 8:10 Pre-transplant Results for this AM ASSET MANAGER evaluation for procedure are in chronic kidney the results disease section. Secondary hypertension Systemic lupus erythematosus, unspecified SLE type, unspecified organ involvement status (HCC) Anemia of renal disease COMPREHENSIVE METABOLIC Routine 11/30/2018 8:10 Pre-transplant Results for this PANEL AM ASSET MANAGER evaluation for procedure are in chronic kidney the results disease section. Secondary hypertension Systemic lupus erythematosus, unspecified SLE type, unspecified organ involvement status (HCC) Anemia of renal disease CYTOMEGALOVIRUS Routine 11/30/2018 8:10 Pre-transplant Results for this ANTIBODY, IGM AM ASSET MANAGER evaluation for procedure are in chronic kidney the results disease section. Secondary hypertension Systemic lupus erythematosus, unspecified SLE type, unspecified organ involvement status (HCC) Anemia of renal disease CYTOMEGALOVIRUS Routine 11/30/2018 8:10 Pre-transplant Results for this ANTIBODY, IGG AM ASSET MANAGER evaluation for procedure are in chronic kidney the results disease section. Secondary hypertension Systemic lupus erythematosus, unspecified SLE type, unspecified organ involvement status (HCC) Anemia of renal disease CBC W/PLT COUNT & AUTO Routine 11/30/2018 8:10 Pre-transplant Results for this DIFFERENTIAL AM ASSET MANAGER evaluation for procedure are in chronic kidney the results disease section. Secondary hypertension Systemic lupus erythematosus, unspecified SLE type, unspecified organ involvement status (HCC) Anemia of renal disease URINE CULTURE Routine 11/30/2018 8:10 Pre-transplant Results for this AM ASSET MANAGER evaluation for procedure are in chronic kidney the results disease section. Secondary hypertension Systemic lupus erythematosus, unspecified SLE type, unspecified organ involvement status (HCC) Anemia of renal disease BLOOD TYPING, AUTOMATED Routine 11/30/2018 8:02 Pre-transplant Results for this AM ASSET MANAGER evaluation for procedure are in chronic kidney the results disease section. Secondary hypertension Systemic lupus erythematosus, unspecified SLE type, unspecified organ involvement status (HCC) Anemia of renal disease 2D ECHO W/ DOPPLER Routine 11/09/2018 (CW/PW/COLOR) ECG 12-LEAD Routine 11/09/2018 MAMMO SCREENING Routine 09/22/2018 BILATERAL US RETROPERITONEAL Routine 08/16/2018 LIMITED after 03/15/2018 Results TRANSFUSION SERVICE REPORT - SCAN (12/01/2018 6:04 PM ASSET MANAGER) Narrative Performed At HLA TYPING CII (11/30/2018 8:10 AM ASSET MANAGER) HLA-DR AG1 9 [facility] HLA-DR AG2 13 [facility] HLA-DR AG3-1 [facility] HLA-DR AG3-2 52 [facility] HLA-DR AG4-1 53 [facility] HLA-DR AG4-2 [facility] HLA-DR AG5-1 [facility] HLA-DR AG5-2 [facility] HLA-DQA1 AG 1-1 03 [facility] HLA-DQA1 AG 1-2 01 [facility] HLA-DQB1 AG 1-1 2 [facility] HLA-DQB1 AG 1-2 6 [facility] HLA-DPA1 AG 1-1 02 [facility] HLA-DPA1 AG 1-2 01 [facility] HLA-DPB1 AG 1-1 13:01 [facility] HLA-DPB1 AG 1-2 04:01 [facility] HLA-AG Notes [facility] HLA-AG Report Comments [facility] Specimen Blood Narrative Performed At Disclaimer: [facility] This test was developed and its performance characteristics determined by the [facility] Laboratory. It has not been cleared or [...] complexity clinical laboratory testing. Performing Organization Address City/[facility] Phone Number [facility] ONE Fabrice Gutiérrez, MS: [place] [address] [id number], CLIA#[id number] CAP#[id number] UNOS#[id number] HLA TYPING CI (11/30/2018 8:10 AM ASSET MANAGER) HLA-A AG1 23 [facility] HLA-A AG2 68 [facility] HLA-B AG1 63 [facility] HLA-B AG2 53 [facility] HLA-C AG1 7 [facility] HLA-C AG2 6 [facility] HLA-B BW1 4 [facility] HLA-B BW2 4 [facility] HLA-AG Notes [facility] HLA-AG Report Comments [facility] Specimen Blood Narrative Performed At Disclaimer: [facility] This test was developed and its performance characteristics determined by the [facility] Laboratory. It has not been cleared or [...] complexity clinical laboratory testing. Performing Organization Address City/[facility] Phone Number [facility] ONE Fabrice Gutiérrez, MS: [place] [address] [id number], CLIA#[id number] CAP#[id number] UNOS#[id number] FLOW PRA CLASS II WITH REFLEX TO ANTIBODY SPECIFICITY (11/30/2018 8:10 AM ASSET MANAGER) Flow Class II Percent Positive 85 [facility] Flow Class Report Comments [facility] Specimen Blood Narrative Performed At Disclaimer: [facility] This test was developed and its performance characteristics determined by the [facility] Laboratory. It has not been cleared or [...] complexity clinical laboratory testing. Performing Organization Address City/State[facility] Phone Number [facility] Fabrice Gutiérrez, MS: [place] [address] [id number], CLIA#[id number] CAP#[id number] UNOS#[id number] FLOW PRA CLASS I WITH REFLEX TO ANTIBODY SPECIFICITY (11/30/2018 8:10 AM ASSET MANAGER) Flow Class I Percent Positive 0 [facility] Flow Class Report Comments [facility] Specimen Blood Narrative Performed At Disclaimer: [facility] This test was developed and its performance characteristics determined by the [facility] Laboratory. It has not been cleared or [...] complexity clinical laboratory testing. Performing Organization Address City/[facility] Phone Number [facility] Fabrice Gutiérrez, MS: [place] [address] [id number], CLIA#[id number] CAP#[id number] UNOS#[id number] AB SPECIFICITY CLASS II (11/30/2018 8:10 AM ASSET MANAGER) AB Specificity Class II DP:19 [facility] AB Specificity Titr Class Report MFIs > 4000 [facility] Specimen Blood Narrative Performed At Disclaimer: [facility] This test was developed and its performance characteristics determined by the [facility] Laboratory. It has not been cleared or [...] complexity clinical laboratory testing. Performing Organization Address City/[facility] Phone Number [facility] Fabrice Gutiérrez, MS: [place] [address] [id number], CLIA#[id number] CAP#[id number] UNOS#[id number] T Spot TB (11/30/2018 8:10 AM ASSET MANAGER) T-Spot TB Negative [facility] Neg Ctrl Spot Count 0 [facility] Panel A Spot 0 [facility] Panel B Spot 0 [facility] Pos Ctrl Spot Ct 0 [facility] Scan Result [facility] Specimen Blood Narrative Performed At Performing Organization Address City/State/Zipcode Phone Number [facility] [address] [place] [address] LAB[address]ATOR[facility] [address] PT/aPTT (11/30/2018 8:10 AM ASSET MANAGER) Protime 13.9 11.7 - 14.7 seconds [facility] INR 1.1 <=5.9 [facility] PTT 30.4 22.5 - 36.0 seconds [facility] Specimen Blood Narrative Performed At RECOMMENDED COUMADIN/WARFARIN INR THERAPY [facility] RANGES STANDARD DOSE: 2.0 - 3.0 Includes: PROPHYLAXIS for venous thrombosis, systemic embolization; TREATMENT for venous thrombosis and/or pulmonary embolus. HIGH RISK: Target INR is 2.5-3.5 for patients with mechanical heart valves. Performing Organization Address City/[facility] Phone Number [address] [address] [phone] CENTER HIV-1 Antigen with HIV-1/2 Antibody (11/30/2018 8:10 AM ASSET MANAGER) HIV-1 Antigen with HIV 1&2 NON-REACTIVE Nonreactive [facility] Specimen Blood Performing Organization Address City/[facility]/Zipcode Phone Number [address] [address] [phone] CENTER 1:1 MIXING STUDY, NON-INCUBATED (11/30/2018 8:10 AM ASSET MANAGER) Protime 13.8 11.7 - 14.7 seconds [facility] PTT 31.6 22.5 - 36.0 seconds [facility] PT 1/1 Mix 13.5 11.7 - 14.7 SECS [facility] PTT 11/15 Mix 31.9 22.5 - 36.0 SECS [facility] Specimen Blood Performing Organization Address City/State/Zipcode Phone Number [facility] [address] [place] [address] CENTER CBC with platelet count + automated diff (11/30/2018 8:10 AM ASSET MANAGER) WBC 6.3 3.5 - 10.5 K/L [facility] RBC 3.17 (L) 3.93 - 5.22 M/L [facility] Hemoglobin 9.6 (L) 11.2 - 15.7 GM/DL [facility] Hematocrit 29.9 (L) 34.1 - 44.9 % [facility] MCV 94.3 79.4 - 94.8 fL [facility] MCH 30.3 25.6 - 32.2 pg [facility] MCHC 32.1 (L) 32.2 - 35.5 GM/DL [facility] RDW 12.6 11.7 - 14.4 % [facility] Platelets 128 (L) 150 - 450 K/CU MM [facility] MPV 11.1 9.4 - 12.3 fL [facility] nRBC 0 0 - 0 /100 WBC [facility] % Neutros 71 % [facility] % Lymphs 19 % [facility] % Monos 8 % [facility] % Eos 2 % [facility] % Baso 0 % [facility] # Neutros 4.50 1.56 - 6.13 K/L [facility] # Lymphs 1.20 1.18 - 3.74 K/L [facility] # Monos 0.51 (H) 0.24 - 0.36 K/L [facility] # Eos 0.10 0.04 - 0.36 K/L [facility] # Baso 0.01 0.01 - 0.08 K/L [facility] Immature Granulocytes-Relative 0 0 - 1 % [facility] Specimen Blood Performing Organization Address City/State/[facility] Phone Number [address] [address] [place] Hepatitis C Antibody (11/30/2018 8:10 AM ASSET MANAGER) Hepatitis C Ab NON-REACTIVE Nonreactive [facility] Specimen Blood Performing Organization Address [facility] Phone Number [address] [address] [place] Cytomegalovirus antibody, IgM (11/30/2018 8:10 AM ASSET MANAGER) CMV IGM Negative Negative, Equivocal [facility] Specimen Blood Narrative Performed At CMV IgM Result Interpretation: [facility] </=0.8 Al Negative 0.9-1.0 Al Equivocal >/=1.1 Al Positive Performing Organization Address [facility] Phone Number [address] [address] [phone] [place] Double-Stranded DNA (dsDNA) Antibody (11/30/2018 8:10 AM ASSET MANAGER) ds DNA Ab Negative [facility] Specimen Blood Performing Organization Address City/[facility] Phone Number [address] [address] [place] Hepatitis B core antibody, IgM (11/30/2018 8:10 AM ASSET MANAGER) Hep B C IgM NON-REACTIVE Nonreactive [facility] Specimen Blood Performing Organization Address City/State/Zipcode Phone Number [address] [address] [phone] [place] EBV-VCA antibody, IgM (11/30/2018 8:10 AM ASSET MANAGER) LAUREEN WEBSTER VIRAL CAPSID Negative Negative, Equivocal [facility]TIGEN [facility] Specimen Blood Narrative Performed At Laureen Webster Viral Capsid Antigen IgM Result [facility] Interpretation: </=0.8 Al Negative 0.9-1.0 Al Equivocal >/=1.1 Al Positive Performing Organization Address City/[facility] Phone Number [address] [address] [place] EBV-VCA antibody, IgG (11/30/2018 8:10 AM ASSET MANAGER) LAUREEN WEBSTER VIRAL CAPSID Positive (A) Negative, Equivocal [facility]TIGEN [facility] Specimen Blood Narrative Performed At Laureen Webster Viral Capsid Antigen IgG Result [facility] Interpretation: </=0.8 Al Negative 0.9-1.0 Al Equivocal >/=1.1 Al Positive Performing Organization Address [facility] Phone Number [address] [address] [place] RPR (11/30/2018 8:10 AM ASSET MANAGER) RPR Nonreactive Nonreactive [facility] Specimen Blood Performing Organization Address City/[facility] Phone Number [address] [address] [place] Hepatitis B surface antibody (11/30/2018 8:10 AM ASSET MANAGER) Hep B S Ab <8.0 <8.0 mIU/mL [facility] Specimen Blood Performing Organization Address City/[facility]/Zipcode Phone Number [address] [address] [place] Hepatitis B surface antigen (11/30/2018 8:10 AM ASSET MANAGER) hepatitis B Surface Ag NON-REACTIVE Nonreactive [facility] Specimen Blood Performing Organization Address [facility] Phone Number [address] [address] [place] Cytomegalovirus antibody, IgG (11/30/2018 8:10 AM ASSET MANAGER) CYTOMEGALOVIRUS, IGG Positive (A) Negative, Equivocal [facility] Specimen Blood Narrative Performed At CMV IgG Result Interpretation: [facility] </=0.8 Al Negative 0.9-1.0 Al Equivocal >/=1.1 AlPositive Performing Organization Address [facility] Phone Number [address] [address] [place] Cardiolipin Antibodies, IgG and IgM (11/30/2018 8:10 AM ASSET MANAGER) Anticardiolipin IgG <1.6 <20.0 GPL [facility] Anticardiolipin IgM <0.2 <20.0 MPL [facility] Specimen Blood Narrative Performed At Anticardiolipin IgG Result Interpretation: [facility] <20.0 GPL Normal >/=20.0 GPL Positive Anticardiolipin IgM Result Interpretation: <20.0 MPL Normal >/=20.0 MPL Positive Performing Organization Address [facility] Phone Number [address] [address] [phone] [place] Urinalysis, Routine (11/30/2018 8:10 AM ASSET MANAGER) Color, UA Yellow [facility] Clarity, UA Clear [facility] Specific [place], UA 1.011 1.001 - 1.035 [facility] pH, UA 5.5 5.0 - 8.0 [facility] Protein, UA 200 mg/dL (A) Negative [facility] Glucose, UA Negative Negative [facility] Ketones, UA Negative Negative [facility] Bilirubin, UA Negative Negative [facility] Blood, UA Trace (A) Negative [facility] Nitrite, UA Negative Negative [facility] Leukocytes, UA Negative Negative [facility] Urobilinogen, UA 0.2 0.2 - 1.0 mg/dL [facility] RBC, UA <1 /HPF [facility] WBC, UA 7 /HPF [facility] Bacteria, UA Occasional [facility] Squam Epithel, UA 1 /HPF [facility] Specimen Source [facility] Specimen Urine Performing Organization Address [facility] Phone Number [address] [address] [phone] [place] Direct [facility] (CANELO)/Direct Nichole (11/30/2018 8:10 AM ASSET MANAGER) Direct [facility]-IGG NEGATIVE [facility] Direct [facility]-C3B, C3D NEGATVIE [facility] Specimen Blood Performing Organization Address [facility] Phone Number [address] [address] Urine Culture (11/30/2018 8:10 AM ASSET MANAGER) Result >100,000 col/mL skin stanley [facility] Specimen Urine Performing Organization Address [facility] Phone Number [address] [address] [place] Varicella Zoster Antibody, IgG (11/30/2018 8:10 AM ASSET MANAGER) Varicella IgG 7.3 [facility] Specimen Blood Narrative Performed At VARICELLA ZOSTER RESULT INTERPRETATIONS: [facility] <=0.8 AlNonreactive:Presumed non-immune to VZV 0.9-1.0 AlEquivocal >=1.1 AlReactive:Presumed immune to VZV Performing Organization Address [facility] Phone Number [address] [address] CENTER Complement Component C3 (11/30/2018 8:10 AM ASSET MANAGER) C3 Complement 82 82 - 193 mg/dL [facility] Specimen Blood Performing Organization Address [facility] Phone Number [address] [address] [place] Complement Component C4 (11/30/2018 8:10 AM ASSET MANAGER) C4 Complement 39 15 - 57 mg/dL [facility] Specimen Blood Performing Organization Address [facility] Phone Number [address] [address] [phone] CENTER Uric Acid (11/30/2018 8:10 AM ASSET MANAGER) Uric Acid 10.3 (H) 2.6 - 7.2 mg/dL [facility] Specimen Blood Performing Organization Address [facility] Phone Number [address] [address] C[place] Phosphorus (11/30/2018 8:10 AM ASSET MANAGER) Phosphorus 6.7 (H) 2.3 - 4.7 mg/dL [facility] Specimen Blood Performing Organization Address [facility] Phone Number [address] [address] [phone] CENTER PTH, Intact (11/30/2018 8:10 AM ASSET MANAGER) PTH 315.4 (H) 8.5 - 72.5 pg/mL [facility] Specimen Blood Performing Organization Address [facility] Phone Number [address] [address] [phone] CENTER Lactate Dehydrogenase (LDH) (11/30/2018 8:10 AM ASSET MANAGER) LDH 285 (H) 125 - 220 U/L [facility] Specimen Blood Performing Organization Address City/[facility] Phone Number [address] [address] [phone] [place] Hemoglobin A1c (11/30/2018 8:10 AM ASSET MANAGER) Hemoglobin A1C 5.2 4.3 - 6.1 % [facility] Specimen Blood Performing Organization Address City/[facility] Phone Number [address] [address] [place] Gamma Glutamyl Transferase (GGT) (11/30/2018 8:10 AM ASSET MANAGER) GGT 36 9 - 64 U/L [facility] Specimen Blood Performing Organization Address City/[facility] Phone Number [address] [address] [place] Comprehensive metabolic panel (11/30/2018 8:10 AM ASSET MANAGER) Protein, Total 6.9 6.0 - 8.3 gm/dL [facility] Albumin 3.9 3.5 - 5.0 g/dL [facility] Alkaline Phosphatase 92 40 - 150 U/L [facility] Total Bilirubin 0.3 0.2 - 1.2 mg/dL [facility] Sodium 140 136 - 145 meq/L [facility] Potassium 4.1 3.5 - 5.1 meq/L [facility] Chloride 106 98 - 107 meq/L [facility] CO2 20 (L) 22 - 29 meq/L [facility] BUN 70 (H) 7 - 21 mg/dL [facility] Creatinine 5.40 (H) 0.57 - 1.25 mg/dL [facility] Glucose 117 (H) 70 - 105 mg/dL [facility] Calcium 9.6 8.4 - 10.2 mg/dL [facility] AST 19 5 - 34 U/L [facility] ALT 11 6 - 55 U/L [facility] EGFR 8Comment: ESTIMATED GFR mL/min/1.73 sq m [facility] IS NOT ACCURATE [facility] CREATININE CLEARANCE IN PREDICTING GLOMERULAR FILTRATION RATE. ESTIMATED GFR IS NOT APPLICABLE FOR DIALYSIS PATIENTS. Specimen Blood Performing Organization Address City/[facility]/Zipcode Phone Number [address] [address] [phone] CENTER Blood typing, automated (11/30/2018 8:02 AM ASSET MANAGER) ABO/RH AUTOMATED (BEAKER) O POSITIVE [facility] Specimen Blood Performing Organization Address City/[facility] Phone Number [address] [address] [phone] 2D Echo W/Doppler(CW/PW/Color) (11/09/2018) Narrative Performed At ECG 12 lead (11/09/2018) Narrative Performed At Mammography screening bilateral (09/22/2018) Narrative Performed At Ultrasound retroperitoneal limited (08/16/2018) Narrative Performed At after 03/15/2018 Insurance Payer Benefit Plan / Group Subscriber ID Type Phone Address MEDICARE MEDICARE A B xxxxxxxxxxx Medicare xxxxxxxxx Other Govt ([facility] [place], [facility], etc.) (Home) [place] [address]
--- OUTSIDE RECORDS SUMMARY | 2019-03-16 17:09 | XMS REPORT ---
:1950 [facility] [address] Fitch [address] [place] [address] Care Team Providers Name Role Phone MARIO ANDERSEN Unavailable Unavailable Problems This patient has no known problems. Allergies, Adverse Reactions, Alerts This patient has no known allergies or adverse reactions. Medications This patient has no known medications. Results Test Description Test Time Test Comments Text Results Atomic Results Result Comments URINE CULTURE 2018-12-02 16:29:00 Test Item Value Reference Range Comments CULTURE (BEAKER) (test kqku=4142) >100,000 col/mL skin stanley CYTOMEGALOVIRUS ANTIBODY, [id number] 12:23:00 Test Item Value Reference Range Comments CYTOMEGALOVIRUS IGM ANTIBODY (BEAKER) (test Negative Negative, Equivocal honx=5899) CMV IgM Result Interpretation: </=0.8 Al Negative 0.9-1.0 Al Equivocal >/=1.1 Al PositiveCYTOMEGALOVIRUS ANTIBODY, [id number] 12:18:00 Test Item Value Reference Range Comments CYTOMEGALOVIRUS, IGG (BEAKER) (test ynrt=8561) Positive Negative, Equivocal CMV IgG Result Interpretation: </=0.8 Al Negative 0.9-1.0 Al Equivocal &gt ;/=1.1 Al PositiveEBV ANTIBODY, [id number] 12:18:00 Test Item Value Reference Range Comments SHAKIR ESTRADA VIRAL CAPSID ANTIGEN IGG (BEAKER) Positive Negative, Equivocal (test fitc=7813) Shakir Estrada Viral Capsid Antigen IgG Result Interpretation: </=0.8 Al Negative 0.9-1.0 Al Equivocal >/=1.1 Al PositiveCARDIOLIPIN ANTIBODIES, IGG AND [id number] 12:18:00 Test Item Value Reference Range Comments ANTICARDIOLIPIN IGG ANTIBODY (BEAKER) (test ndsp=468) < GPL <20.0 ANTICARDIOLIPIN IGM ANTIBODY (BEAKER) (test gsop=263) < MPL <20.0 Anticardiolipin IgG Result Interpretation: <20.0 GPL Normal>/=20.0 GPL PositiveAnticardiolipin IgM Result Interpretation: <20.0 MPL Normal>/= 20.0 MPL PositiveDOUBLE-STRANDED DNA (DSDNA) [id number] 11:08:00 Test Item Value Reference Range Comments ANTI-DNA DS (BEAKER) (test jybr=3209) Negative EBV ANTIBODY, [id number] 10:52:00 Test Item Value Reference Range Comments SHAKIR ESTRADA VIRAL CAPSID ANTIGEN IGM (BEAKER) Negative Negative, Equivocal (test hsaw=7545) Shakir Estrada Viral Capsid Antigen IgM Result Interpretation: </=0.8 Al Negative 0.9-1.0 Al Equivocal >/=1.1 Al PositiveVARICELLA ZOSTER ANTIBODY , [id number] 10:52:00 Test Item Value Reference Range Comments VARICELLA ZOSTER IGG (AL) (BEAKER) (test vqlc=0058) 7.3 VARICELLA ZOSTER RESULT INTERPRETATIONS: <=0.8 Al Nonreactive: Presumed non-immune to VZV 0.9-1.0 Al Equivocal >=1.1 Al Reactive: Presumed immune to [id number] 13:57:00 Test Item Value Reference Range Comments RPR SCREEN (BEAKER) (test qbpo=970) Nonreactive Nonreactive 1:1 MIXING STUDY, [id number] 11:12:00 Test Item Value Reference Range Comments PROTIME (BEAKER) (test hknh=119) 13.8 seconds 11.7-14.7 PARTIAL THROMBOPLASTIN TIME (BEAKER) (test 31.6 seconds 22.5-36.0 irob=295) PT 1/1 MIX (BEAKER) (test ktzd=3612) 13.5 SECS 11.7-14.7 PTT 1/1 MIX (BEAKER) (test eywo=4225) 31.9 SECS 22.5-36.0 HEPATITIS B SURFACE [id number] 10:16:00 Test Item Value Reference Range Comments HEPATITIS B SURFACE ANTIBODY (BEAKER) (test < mIU/mL <8.0 lgwg=492) HEPATITIS B SURFACE [id number] 09:48:00 Test Item Value Reference Range Comments HEPATITIS B SURFACE ANTIGEN (2) (BEAKER) (test Nonreactive Nonreactive frvx=5234) HEPATITIS B CORE ANTIBODY, [id number] 09:48:00 Test Item Value Reference Range Comments HEPATITIS B CORE IGM ANTIBODY (BEAKER) (test Nonreactive Nonreactive jdid=510) HEPATITIS C [id number] 09:42:00 Test Item Value Reference Range Comments HEPATITIS C ANTIBODY (BEAKER) (test gzaq=918) Nonreactive Nonreactive HIV-1 ANTIGEN WITH HIV-1/2 [id number] 09:42:00 Test Item Value Reference Range Comments HIV-1 ANTIGEN WITH HIV 1\T\2 ANTIBODY (2) Nonreactive Nonreactive (BEAKER) (test zvyo=5667) HEMOGLOBIN [id number] 09:33:00 Test Item Value Reference Range Comments HEMOGLOBIN A1C (BEAKER) (test fdwn=339) 5.2 % 4.3-6.1 COMPLEMENT COMPONENT [id number] 09:29:00 Test Item Value Reference Range Comments C4 COMPLEMENT (BEAKER) (test qjeb=819) 39 mg/dL 15-57 COMPLEMENT COMPONENT [id number] 09:29:00 Test Item Value Reference Range Comments C3 COMPLEMENT (BEAKER) (test ukpx=670) 82 mg/dL 82-193 COMPREHENSIVE METABOLIC [id number] 09:29:00 Test Item Value Reference Range Comments TOTAL PROTEIN (BEAKER) 6.9 gm/dL 6.0-8.3 (test hufh=658) ALBUMIN (BEAKER) (test 3.9 g/dL 3.5-5.0 peax=3925) ALKALINE PHOSPHATASE 92 U/L 40-150 (BEAKER) (test dcic=409) BILIRUBIN TOTAL (BEAKER) 0.3 mg/dL 0.2-1.2 (test mytu=084) SODIUM (BEAKER) (test 140 meq/L 136-145 plhs=481) POTASSIUM (BEAKER) (test 4.1 meq/L 3.5-5.1 pnmp=312) CHLORIDE (BEAKER) (test 106 meq/L 98-107 ljsb=238) CO2 (BEAKER) (test 20 meq/L 22-29 lvxk=333) BLOOD UREA NITROGEN 70 mg/dL 7-21 (BEAKER) (test wxgl=363) CREATININE (BEAKER) (test 5.40 mg/dL 0.57-1.25 alzr=095) GLUCOSE RANDOM (BEAKER) 117 mg/dL 70-105 (test fvmt=135) CALCIUM (BEAKER) (test 9.6 mg/dL 8.4-10.2 wfwg=032) AST (SGOT) (BEAKER) (test 19 U/L 5-34 nhur=600) ALT (SGPT) (BEAKER) (test 11 U/L 6-55 kbrr=182) EGFR (BEAKER) (test 8 mL/min/1.73 sq m ESTIMATED GFR IS NOT jtco=2309) ACCURATE CREATININE CLEARANCE IN PREDICTING GLOMERULAR FILTRATION RATE. ESTIMATED GFR IS NOT APPLICABLE FOR DIALYSIS PATIENTS. URIC [id number] 09:25:00 Test Item Value Reference Range Comments URIC ACID (BEAKER) (test xsgz=871) 10.3 mg/dL 2.6-7.2 [id number] 09:25:00 Test Item Value Reference Range Comments PHOSPHORUS (BEAKER) (test jcnt=122) 6.7 mg/dL 2.3-4.7 GAMMA GLUTAMYL TRANSFERASE (GGT)2018-11-30 09:25:00 Test Item Value Reference Range Comments GAMMA GLUTAMYL TRANSFERASE (BEAKER) (test ghif=432) 36 U/L 9-64 LACTATE DEHYDROGENASE (LDH)2018-11-30 09:25:00 Test Item Value Reference Range Comments LACTATE DEHYDROGENASE (BEAKER) (test muvs=968) 285 U/L 125-220 PTH, [id number] 09:19:00 Test Item Value Reference Range Comments PARATHYROID HORMONE INTACT (BEAKER) (test 315.4 pg/mL 8.5-72.5 qnct=554) URINALYSIS W/ [id number] 09:08:00 Test Item Value Reference Range Comments COLOR (BEAKER) (test yrla=309) Yellow CLARITY (BEAKER) (test ckig=248) Clear SPECIFIC GRAVITY UA (BEAKER) (test raeo=589) 1.011 1.001-1.035 PH UA (BEAKER) (test gmfd=228) 5.5 5.0-8.0 PROTEIN UA (BEAKER) (test fkui=541) 200 mg/dL Negative GLUCOSE UA (BEAKER) (test qdqz=245) Negative Negative KETONES UA (BEAKER) (test eeln=981) Negative Negative BILIRUBIN UA (BEAKER) (test bgfs=084) Negative Negative BLOOD UA (BEAKER) (test ioge=645) Trace Negative NITRITE UA (BEAKER) (test blxm=326) Negative Negative LEUKOCYTE ESTERASE UA (BEAKER) (test nylg=073) Negative Negative UROBILINOGEN UA (BEAKER) (test mnxx=580) 0.2 mg/dL 0.2-1.0 RBC UA (BEAKER) (test gahz=361) < /HPF WBC UA (BEAKER) (test xjxc=965) 7 /HPF BACTERIA (BEAKER) (test jxiy=801) Occasional SQUAMOUS EPITHELIAL (BEAKER) (test gfsd=221) 1 /HPF SOURCE(BEAKER) (test ysgh=7574) [id number] 08:58:00 Test Item Value Reference Range Comments PROTIME (BEAKER) (test hwjs=522) 13.9 seconds 11.7-14.7 INR (BEAKER) (test vstc=871) 1.1 <=5.9 PARTIAL THROMBOPLASTIN TIME (BEAKER) (test 30.4 seconds 22.5-36.0 xstu=412) RECOMMENDED COUMADIN/WARFARIN INR THERAPY RANGESSTANDARD DOSE: 2.0 - 3.0 Includes: PROPHYLAXIS forvenous thrombosis, systemic embolization; TREATMENT for venous thrombosis and/or pulmonary embolus.HIGH RISK: Target INR is 2.5-3.5 for patients with mechanical heart valves.CBC W/PLT COUNT & AUTO [id number] 08:47:00 Test Item Value Reference Range Comments WHITE BLOOD CELL COUNT (BEAKER) (test injl=192) 6.3 K/ L 3.5-10.5 RED BLOOD CELL COUNT (BEAKER) (test gzlz=345) 3.17 M/ L 3.93-5.22 HEMOGLOBIN (BEAKER) (test eaoe=793) 9.6 GM/DL 11.2-15.7 HEMATOCRIT (BEAKER) (test vsjd=313) 29.9 % 34.1-44.9 MEAN CORPUSCULAR VOLUME (BEAKER) (test ngaj=475) 94.3 fL 79.4-94.8 MEAN CORPUSCULAR HEMOGLOBIN (BEAKER) (test 30.3 pg 25.6-32.2 ktdx=758) MEAN CORPUSCULAR HEMOGLOBIN CONC (BEAKER) (test 32.1 GM/DL 32.2-35.5 bokb=359) RED CELL DISTRIBUTION WIDTH (BEAKER) (test 12.6 % 11.7-14.4 fygl=351) PLATELET COUNT (BEAKER) (test lmae=290) 128 K/CU MM 150-450 MEAN PLATELET VOLUME (BEAKER) (test dhli=539) 11.1 fL 9.4-12.3 NUCLEATED RED BLOOD CELLS (BEAKER) (test 0 /100 WBC 0-0 frfd=470) NEUTROPHILS RELATIVE PERCENT (BEAKER) (test 71 % uath=658) LYMPHOCYTES RELATIVE PERCENT (BEAKER) (test 19 % gcxb=105) MONOCYTES RELATIVE PERCENT (BEAKER) (test 8 % qgqu=664) EOSINOPHILS RELATIVE PERCENT (BEAKER) (test 2 % bdwh=504) BASOPHILS RELATIVE PERCENT (BEAKER) (test 0 % lnyk=004) NEUTROPHILS ABSOLUTE COUNT (BEAKER) (test 4.50 K/ L 1.56-6.13 rgcs=344) LYMPHOCYTES ABSOLUTE COUNT (BEAKER) (test 1.20 K/ L 1.18-3.74 ybme=631) MONOCYTES ABSOLUTE COUNT (BEAKER) (test 0.51 K/ L 0.24-0.36 urms=429) EOSINOPHILS ABSOLUTE COUNT (BEAKER) (test 0.10 K/ L 0.04-0.36 ppti=606) BASOPHILS ABSOLUTE COUNT (BEAKER) (test 0.01 K/ L 0.01-0.08 gpmo=288) IMMATURE GRANULOCYTES-RELATIVE PERCENT (BEAKER) 0 % 0-1 (test wlqt=3573)
[2019-03-16 17:48] LABS: Absolute Lymphocytes (CBC) 1.2 K/uL (0.7-4.9); Absolute Monocytes 0.9 K/uL (0.1-1.3); Absolute Neutrophil 5.7 K/uL (1.8-8.0); Eosinophils % 0.2 % (0-4.4); Hematocrit 27.4 % (36.0-45.0); Lymphocytes % 14.9 % (15.3-44.8); MPV 10.3 fL (7.6-11.3); Monocytes % 11.5 % (3.3-12.3); RBC Red Blood Cell Count 3.05 M/uL (3.86-4.86)
[2019-03-16] MEDS ORDERED: ONDANSETRON 4 MG/2 ML VIAL ONE (17:57)
[2019-03-16] MEDS ORDERED: FAMOTIDINE 20 MG/2 ML VIAL IV ONE (17:58)
--- NOTE | 2019-03-16 18:00 | RAD REPORT ---
EXAM DESCRIPTION: US - Abdomen Exam Limited - 03/16/2019 5:50 pm CLINICAL HISTORY: Abdominal pain COMPARISON: None. FINDINGS: Gallbladder size is normal. No gallstones or sludge within the lumen. Gallbladder wall thi ckening is present. No mass or polyp although wall seen. Common bile duct is normal with no common du ct stone identified. IMPRESSION: Diffuse gallbladder wall thickening without focal mass or polyp. No gallstones, sludge or intraluminal abnormality. No biliary tree abnormality.
[2019-03-16 18:21] LABS: ALT/SGPT 19 U/L (12-78); AST/SGOT 24 U/L (15-37); Albumin 3.5 g/dL (3.4-5.0); Alkaline Phosphatase 74 U/L (45-117); BUN Blood Urea Nitrogen 76 mg/dL (7-18); Bicarbonate 28 mmol/L (21-32); Bilirubin Direct 0.1 mg/dL (0-0.2); Bilirubin Total 0.5 mg/dL (0.2-1.0); Glucose Level 111 mg/dL (74-106); Lipase 115 U/L (73-393); Magnesium 2.9 mg/dL (1.8-2.4); Protein, Total 6.8 g/dL (6.4-8.2); Sodium Level 140 mmol/L (136-145); Troponin I 0.23 ng/mL (0.0-0.045)
[2019-03-16 18:24] LABS: NT PRO-BNP > 175000 pg/mL (<125)
[2019-03-16] MEDS ORDERED: ASPIRIN 81 MG CHEWABLE TABLET ONE (18:53)
[2019-03-16] MEDS ORDERED: FUROSEMIDE 40 MG/4 ML VIAL ONE (19:07)
--- NOTE | 2019-03-16 19:55 | EDPHYS ---
Physician Documentation [facility] Name: Cheyanne Haywood Age: 68 yrs Sex: Female : 1950 Arrival Date: 03/16/2019 Time: 17:09 Bed 13 Private MD: ED Physician Jorge Suh HPI: 03/16 17:20 This 68 yrs old Female presents to ER via EMS with complaints of Abdominal cp Pain. 17:20 The patient presents with abdominal pain in the right upper quadrant. Onset: The cp symptoms/episode began/occurred today. The symptoms do not radiate. Associated signs and symptoms: Pertinent negatives: nausea and vomiting, anorexia, blood in stools, constipation, diarrhea, dysuria, fever, vomiting. The symptoms are described as waxing/waning. Modifying factors: the symptoms are aggravated by pressure. 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 - Social history:: Smoking status: Patient/guardian denies using tobacco. - Ebola Screening: : No symptoms or risks identified at this time. ROS: 17:25 Constitutional: Negative for body aches, chills, fever, poor PO intake. cp 17:25 Eyes: Negative for injury, pain, redness, and discharge. cp 17:25 ENT: Negative for drainage from ear(s), ear pain, sore throat, difficulty swallowing, difficulty handling secretions. 17:25 Cardiovascular: Positive for intermittent chest pain, Negative for palpitations. 17:25 Respiratory: Positive for orthopnea, shortness of breath, Negative for cough, hemoptysis, wheezing. 17:25 Abdomen/GI: Positive for abdominal pain, of the right upper quadrant, Negative for nausea, vomiting, and diarrhea, constipation, black/tarry stool, rectal bleeding. 17:25 Back: Negative for pain at rest, pain with movement, radiated pain. 17:25 : Negative for urinary symptoms. 17:25 Skin: Negative for cellulitis, rash. 17:25 Neuro: Negative for altered mental status, dizziness, headache, weakness. 17:25 All other systems are negative. Exam: 17:30 Constitutional: The patient appears in no acute distress, alert, awake, cp non-diaphoretic, non-toxic, well developed, well nourished. 17:30 Head/Face: Normocephalic, atraumatic. Eyes: Pupils equal round and reactive to light, cp extra-ocular motions intact. Lids and lashes normal. Conjunctiva and sclera are non-icteric and not injected. Cornea within normal limits. Periorbital areas with no swelling, redness, or edema. ENT: Nares patent. No nasal discharge, no septal abnormalities noted. Tympanic membranes are normal and external auditory canals are clear. Oropharynx with no redness, swelling, or masses, exudates, or evidence of obstruction, uvula midline. Mucous membranes moist. Chest/axilla: Normal chest wall appearance and motion. Nontender with no deformity. No lesions are appreciated. 17:30 Cardiovascular: Rate: normal, Rhythm: regular, Edema: is not appreciated, JVD: is not appreciated. 17:30 Respiratory: the patient does not display signs of respiratory distress, Respirations: labored breathing, that is mild, accessory muscle usage, is absent, intercostal retractions, are absent, shallow respirations, that is mild, Breath sounds: rales, that are moderate, are heard diffusely, decreased breath sounds, that are mild, throughout. 17:30 Abdomen/GI: Inspection: abdomen appears normal, Bowel sounds: active, all quadrants, Palpation: soft, in all quadrants, moderate abdominal tenderness, in the right upper quadrant, rebound tenderness, is not appreciated, voluntary guarding, is elicited in the right upper quadrant. 17:30 Back: pain, is absent, ROM is normal. 17:30 Skin: cellulitis, is not appreciated, no rash present. 17:30 Neuro: Orientation: to person, place \T\ time. Mentation: is normal, Cerebellar function: is grossly normal, Motor: moves all fours, strength is normal, Sensation: is normal. 17:35 ECG was reviewed by the Attending Physician. Vital Signs: 17:23 BP 126 / 71; Pulse 62; Resp 18; Temp 99; Pulse Ox 97% ; Weight 73.48 kg; Height 5 ft. 6 bp in. (167.64 cm); 18:27 BP 132 / 72; Pulse 62; Resp 14; Temp 99; Pulse Ox 97% ; bp 19:19 BP 133 / 75; Pulse 64; Resp 17 S; Pulse Ox 95% on 2 lpm NC; jd3 20:31 BP 129 / 63; Pulse 61; Resp 17 S; Pulse Ox 95% on 2 lpm NC; jd3 17:23 Body Mass Index 26.15 (73.48 kg, 167.64 cm) bp MDM: 17:10 Patient medically screened. 17:30 Differential diagnosis: cholecystitis, Cholelithiasis, pancreatitis, Pyelonephritis, cp Ureterolithiasis, urinary tract infection, acute MD. 19:00 Data reviewed: vital signs, nurses notes, lab test result(s), EKG, radiologic studies, cp plain films, and as a result, I will admit patient. 19:00 Test interpretation: by ED physician or midlevel provider: ECG, plain radiologic cp studies. Counseling: I had a detailed discussion with the patient and/or guardian regarding: the historical points, exam findings, and any diagnostic results supporting the discharge/admit diagnosis, lab results, radiology results, the need for further work-up and treatment in the hospital. Response to treatment: the patient's symptoms have mildly improved after treatment. 19:25 Physician consultation: Brandee Leo MD was called at 19:10, was contacted at 19:10, regarding admission, to the telemetry unit. 03/16 17:16 Order name: Basic Metabolic Panel; Complete Time: 18:28 03/16 18:28 Interpretation: Normal except: GLUC 111; BUN 76; CRE 6.22; GFR 7. cp 03/16 17:16 Order name: CBC with Diff; Complete Time: 18:14 03/16 18:24 Interpretation: Normal except: RBC 3.05; HGB 9.1; HCT 27.4; PLT 96; LYM% 14.9. cp 05/ 17:16 Order name: Creatinine for Radiology; Complete Time: 18:28 cp / 17:16 Order name: Hepatic Function; Complete Time: 18:28 cp / 17:16 Order name: Lipase; Complete Time: 18:28 cp / 17:16 Order name: Urine Microscopic Only cp / 17:16 Order name: Magnesium; Complete Time: 18:28 cp / 17:16 Order name: BNP; Complete Time: 18:28 cp 03/16 18:28 Interpretation: Abnormal: NT PRO-BNP > 398774. cp / 17:16 Order name: Troponin I; Complete Time: 18:28 cp / 18:28 Interpretation: Abnormal: TROP 0.23. cp / 17:16 Order name: US Abdomen Limited; Complete Time: 18:14 cp 03/16 18:25 Interpretation: Report reviewed. cp 03/16 18:31 Order name: XRAY Chest (1 view); Complete Time: 20:30 cp 03/16 20:30 Interpretation: Report review. cp 03/16 17:16 Order name: IV Saline Lock; Complete Time: 17:31 cp 03/16 17:16 Order name: Labs collected and sent; Complete Time: 17:38 cp 03/16 17:16 Order name: EKG; Complete Time: 17:16 cp 03/16 17:16 Order name: EKG - Nurse/Tech; Complete Time: 17:30 cp EC:35 Rate is 62 beats/min. Rhythm is regular. IL interval is normal. QRS interval is cp prolonged at 184 msec. QT interval is prolonged. T waves are Inverted in leads aVL, V1, V2. Interpreted by me. Reviewed by me. Administered Medications: 17:00 Drug: Pepcid 20 mg Route: IVP; Site: left antecubital; bp 18:29 Follow up: Response: No adverse reaction bp 17:30 Drug: Zofran 4 mg Route: IVP; Site: left antecubital; bp 18:29 Follow up: Response: No adverse reaction bp 18:41 Drug: Aspirin Chewable Tablet 324 mg Route: PO; bp 18:50 Follow up: Response: No adverse reaction bp 18:56 Drug: LaSIX 40 mg Route: PO; bp 19:55 Follow up: Response: No adverse reaction jd3 Disposition: 03/17 07:01 Co-signature as Attending Physician, Jorge Suh MD. rn Disposition: 03/16/19 19:55 Hospitalization ordered by Brandee Leo for Inpatient Admission. Preliminary diagnosis are Orthopnea, Chronic kidney disease (CKD), Pulmonary edema. - Bed requested for Telemetry/MedSurg (observation). - Status is Inpatient Admission. jd3 - Condition is Stable. - Problem is an ongoing problem. - Symptoms have improved. UTI on Admission? No Signatures: Dispatcher [employer] EDMS Jorge Suh MD MD rn Jaime Goodman PA PA cp Arabella Roy, RN RN Car Dial RN RN jRolando Camilo RN RN bp Corrections: (The following items were deleted from the chart) 03/16 20:26 19:55 Hospitalization Ordered by Brandee Leo MD for Inpatient Admission. Preliminary cg diagnosis is Orthopnea; Chronic kidney disease (CKD); Pulmonary edema. Bed requested for Telemetry/MedSurg (observation). Status is Inpatient Admission. Condition is Stable. Problem is an ongoing problem. Symptoms have improved. UTI on Admission? No. cp 21:16 20:26 03/16/2019 19:55 Hospitalization Ordered by Brandee Leo MD for Inpatient jd3 Admission. Preliminary diagnosis is Orthopnea; Chronic kidney disease (CKD); Pulmonary edema. Bed requested for Telemetry/MedSurg (observation). Status is Inpatient Admission. Condition is Stable. Problem is an ongoing problem. Symptoms have improved. UTI on Admission? No. cg
--- NOTE | 2019-03-16 19:55 | ER ---
Nurse's Notes [facility] Name: Cheyanne Haywood Age: 68 yrs Sex: Female : 1950 Arrival Date: 03/16/2019 Time: 17:09 Bed 13 Private MD: Diagnosis: Orthopnea;Chronic kidney disease (CKD);Pulmonary edema Presentation: 03/16 17:16 Presenting complaint: EMS states: ABDOMINAL PAIN AND SHORTNESS OF BREATH. Transition of bp care: patient was not received from another setting of care. Onset of symptoms is unknown. Risk Assessment: Do you want to hurt yourself or someone else? Patient reports no desire to harm self or others. Initial Sepsis Screen: Does the patient meet any 2 criteria? No. Patient's initial sepsis screen is negative. Does the patient have a suspected source of infection? No. Patient's initial sepsis screen is negative. Care prior to arrival: Oxygen administered. via nasal cannula. 17:16 Method Of Arrival: EMS: [facility] bp 17:16 Acuity: NORMA 2 bp Triage Assessment: 17:23 General: Appears in no apparent distress. uncomfortable, Behavior is cooperative, bp appropriate for age, anxious. Pain: Complains of pain in abdomen. EENT: No deficits noted. Neuro: Level of Consciousness is awake, alert, obeys commands, Oriented to person, place, time, situation, Appropriate for age. Cardiovascular: No deficits noted. Respiratory: Airway is patent Respiratory effort is even, unlabored, Respiratory pattern is regular, symmetrical. GI: Abdomen is non-distended, Abd is soft X 4 quads. : No signs and/or symptoms were reported regarding the genitourinary system. Derm: No deficits noted. Musculoskeletal: No deficits noted. 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 - Social history:: Smoking status: Patient/guardian denies using tobacco. - Ebola Screening: : No symptoms or risks identified at this time. Screenin:28 Abuse screen: Denies threats or abuse. Denies injuries from another. Nutritional bp screening: No deficits noted. Tuberculosis screening: No symptoms or risk factors identified. Fall Risk None identified. Assessment: 17:28 General: SEE TRIAGE NOTE. GI: Bowel sounds present X 4 quads. bp 17:51 Reassessment: U/S COMPLETED, FURTHER RESULTS PENDING, VS STABLE ON MONITOR. bp 18:28 Reassessment: VS STABLE ON MONITOR, NO ACUTE S/S AT THIS TIME. bp 19:17 Reassessment: Patient appears in no apparent distress at this time. Patient and/or jd3 family updated on plan of care and expected duration. Pain level reassessed. Patient is alert, oriented x 3, equal unlabored respirations, skin warm/dry/pink. awaiting provider's disposition. General: Appears in no apparent distress. comfortable, Behavior is calm, cooperative, appropriate for age. Pain: Denies pain. Neuro: Level of Consciousness is awake, alert, obeys commands, Oriented to person, place, time, situation, Appropriate for age. Cardiovascular: Capillary refill < 3 seconds Patient's skin is warm and dry. Respiratory: Airway is patent Respiratory effort is even, unlabored, Respiratory pattern is regular, symmetrical. 20:31 Reassessment: Patient appears in no apparent distress at this time. Patient and/or jd3 family updated on plan of care and expected duration. Pain level reassessed. Patient is alert, oriented x 3, equal unlabored respirations, skin warm/dry/pink. 21:14 Reassessment: Patient appears in no apparent distress at this time. Patient and/or jd3 family updated on plan of care and expected duration. Pain level reassessed. Patient is alert, oriented x 3, equal unlabored respirations, skin warm/dry/pink. Vital Signs: 17:23 BP 126 / 71; Pulse 62; Resp 18; Temp 99; Pulse Ox 97% ; Weight 73.48 kg; Height 5 ft. 6 bp in. (167.64 cm); 18:27 BP 132 / 72; Pulse 62; Resp 14; Temp 99; Pulse Ox 97% ; bp 19:19 BP 133 / 75; Pulse 64; Resp 17 S; Pulse Ox 95% on 2 lpm NC; jd3 20:31 BP 129 / 63; Pulse 61; Resp 17 S; Pulse Ox 95% on 2 lpm NC; jd3 17:23 Body Mass Index 26.15 (73.48 kg, 167.64 cm) bp ED Course: 17:09 Patient arrived in ED. bp 17:10 Jaime Goodman PA is PHCP. cp 17:10 Jorge Suh MD is Attending Physician. cp 17:16 Rolando Landis, RN is Primary Nurse. bp 17:17 Triage completed. bp 17:23 Arm band placed on. bp 17:27 Maintain EMS IV. Dressing intact. Good blood return noted. Site clean \T\ dry. Gauge \T\ bp site: 20 GAUGE L AC. 17:28 Patient has correct armband on for positive identification. Bed in low position. Call bp light in reach. Side rails up X2. Adult w/ patient. 17:46 EKG done, by diagnostic tech. reviewed by Jaime CANCHOLA. sm3 17:49 US Abdomen Limited In Process Unspecified. EDMS 19:04 XRAY Chest (1 view) In Process Unspecified. EDMS 19:46 Primary Nurse role handed off by Rolando Landis, RN ed1 19:52 Brandee Leo MD is Hospitalizing Provider. cp 20:02 Car Dial, DEBORAH is Primary Nurse. jd3 21:12 No provider procedures requiring assistance completed. Patient admitted, IV remains in jd3 place. Administered Medications: 17:00 Drug: Pepcid 20 mg Route: IVP; Site: left antecubital; bp 18:29 Follow up: Response: No adverse reaction bp 17:30 Drug: Zofran 4 mg Route: IVP; Site: left antecubital; bp 18:29 Follow up: Response: No adverse reaction bp 18:41 Drug: Aspirin Chewable Tablet 324 mg Route: PO; bp 18:50 Follow up: Response: No adverse reaction bp 18:56 Drug: LaSIX 40 mg Route: PO; bp 19:55 Follow up: Response: No adverse reaction jd3 Outcome: 19:55 Decision to Hospitalize by Provider. cp 21:12 Admitted to Med/surg accompanied by tech, via wheelchair, room 205, with chart, Report jd3 called to Edil CABRERA 21:12 Condition: stable 21:12 Instructed on the need for admit, Demonstrated understanding of instructions. 21:16 Patient left the ED. jd3 Signatures: Dispatcher [employer] EDKierra Galindo RN RN ed1 Jaime Goodman PA PA cp Davies, Jonathon, RN RN jd3 Rolando Landis RN RN bp Janie Rod sm3 Corrections: (The following items were deleted from the chart) 20:36 20:31 Pulse 61bpm; Resp 17bpm; Spontaneous; Pulse Ox 95% 2 lpm Nasal Cannula; jd3 jd3 20:48 20:31 Pulse 61bpm; Resp 17bpm; Spontaneous; Pulse Ox 95% 2 lpm Nasal Cannula; jd3 jd3
--- NOTE | 2019-03-16 20:11 | RAD REPORT ---
EXAM DESCRIPTION: RAD - Chest Single View - 03/16/2019 7:05 pm CLINICAL HISTORY: Abdominal pain, shortness of breath COMPARISON: February 20 TECHNIQUE: AP portable chest image was obtained 1904 hours . FINDINGS: No peripheral consolidation or mass. Cardiomegaly is present with vascular engorgement and interstitial thickening. Sternotomy wires are in place. Heart, vascular and lung findings are all a change from the comparison study. Trachea is midline. No measurable pleural effusion and no pneumotho rax. No acute bony abnormality seen. No acute aortic findings suspected. IMPRESSION: Mild to moderate CHF/ volume overload pattern.
--- NOTE | 2019-03-16 20:43 | P.HP ---
Certification for Inpatient Patient admitted to: Inpatient With expected LOS: >2 Midnights Practitioner: I am a practitioner with admitting privileges, knowledge of patient current condition, hospital course, and medical plan of care. Services: Services provided to patient in accordance with Admission requirements found in Title 42 Section 412.3 of the Code of Federal Regulations Patient History Date of Service: 03/16/19 Reason for admission: acute on CKD, pulmonary edema History of Present Illness: Ms Haywood is a 68 years old woman with history of Lupus, CKD, HTN, AVR, CAD s/p CABG, who came to ED complaining of SOB. The patient states that she was doing well until this morning, when she start with her symptoms. She was also complaining of abdominal pain, mostly localized on her RUQ. She denied chest pain, nausea, vomiting, fever or chills. The patient has been followed up in [facility] for her CKD, lab work today shows increasing creatinine level 6.3 compared with 1 month ago 5.2. Her current EGFR is 7. She is still making urine. Abd US shows thickened gallbladder wall but not stone or sludge. CXR consistent with moderate CHF. Rest of her lab work remarkable for pro-BNP 175K, elevated trop I , likely due to worsening renal failure. Allergies No Known Drug Allergies Allergy (Verified 11/06/18 01:42) Unknown Home medications list reviewed: Yes Home Medications: Aspirin 1 tab PO DAILY 11/05/18 Atorvastatin Calcium [Lipitor] 20 mg PO BEDTIME 11/05/18 Calcitriol [Rocaltrol] 1 tab PO DAILY 11/05/18 Cyclosporine/Chondroit Sulf A [Cyclosporine 0.1% in [place]] 1 drop BID PRN Diltiazem HCl [Cartia Xt] 240 mg PO DAILY 11/05/18 Fluticasone [Flovent Hfa 110*] 1 spray IH BID PRN 11/05/18 Hydroxychloroquine Sulfate 1 tab PO DAILY 11/05/18 Metoprolol Tartrate [Lopressor*] 1 tab PO BID 11/05/18 Sertraline [Zoloft*] 1.5 tab PO DAILY 11/05/18 Furosemide [Lasix*] 40 mg PO BID #30 tab 11/08/18 - Past Medical/Surgical History Diabetic: No -: Hypertension -: Aortic valve replacement -: Coronary artery disease, CABG x1 vessel -: Lupus -: Chronic renal disease -: Anemia of chronic disease -: Depression -: Aortic valve replacement -: CABG x1 vessel -: Breast biopsies -: D/C Psychosocial/ Personal History: The patient is . She has children. She does not work. - Family History Mother -: Other (see notes) Father -: Heart disease, Diabetes - Social History Smoking Status: Never smoker Alcohol use: No CD- Drugs: No Caffeine use: Yes Place of Residence: Home Review of Systems 10-point ROS is otherwise unremarkable Physical Examination - Physical Exam General: Alert, In no apparent distress HEENT: Atraumatic, PERRLA, Mucous membr. moist/pink, EOMI, Sclerae nonicteric Neck: Supple, 2+ carotid pulse no bruit, No LAD, JVD distended Respiratory: Diminished, Crackles/rales (bilateral rales) Cardiovascular: Regular rate/rhythm, Normal S1 S2, Systolic murmur Gastrointestinal: Normal bowel sounds, Hepatomegaly, Tenderness (RUQ) Musculoskeletal: No tenderness Integumentary: No rashes Neurological: Normal speech, Normal strength at 5/5 x4 extr, Normal tone, Normal affect Lymphatics: No axilla or inguinal lymphadenopathy - Studies Laboratory Data (last 24 hrs) 03/16/19 17:35: Creatinine 6.39 H* 03/16/19 17:35: WBC 7.9, Hgb 9.1 L, Hct 27.4 L, Plt Count 96 L 03/16/19 17:35: Sodium 140, Potassium 4.0, BUN 76 H, Creatinine 6.22 H*, Glucose 111 H, Magnesium 2.9 H, Total Bilirubin 0.5, AST 24, ALT 19, Alkaline Phosphatase 74, Troponin I 0.23 H, Lipase 115 Assessment and Plan - Problems (Diagnosis) (1) Acute kidney injury superimposed on CKD Current Visit: Yes Status: Acute (2) Pulmonary edema Current Visit: Yes Status: Acute (3) Coronary artery disease Onset Date: 11/02/16 Current Visit: No Status: Chronic Qualifiers: Coronary Disease-Associated Artery/Lesion type: [place] artery [place] vs. transplanted heart: [place] heart Associated angina: without angina Qualified Code(s): I25.10 - Atherosclerotic heart disease of [place] coronary artery without angina pectoris (4) H/O aortic valve replacement Current Visit: No Status: Chronic (5) Lupus Onset Date: 11/02/16 Current Visit: No Status: Chronic Qualifiers: Systemic lupus erythematosus type: unspecified Systemic lupus erythematosus organ involvement: unspecified Qualified Code(s): M32.9 - Systemic lupus erythematosus, unspecified - Plan Will order IV lasix, continue O2 support, consult aeronautical products sales engineer, eventually will need to start HD. Abdominal pain is localized on RUQ, she has palpable liver, likely due to congestion. - Advance Directives Does patient have a Living Will: No Does patient have a Durable POA for Healthcare: No - Code Status/Comfort Care Code Status Assessed: Yes Code Status: Full Code
[2019-03-16] MEDS ORDERED: ONDANSETRON 4 MG/2 ML VIAL IV PRN (21:23)
[2019-03-16] MEDS ORDERED: FUROSEMIDE 40 MG/4 ML VIAL IV ONE (22:30)
[2019-03-17 02:12] LABS: Urine Appearance CLEAR; Urine Bilirubin NEGATIVE (NEG); Urine Blood 1+ (NEG); Urine Color YELLOW; Urine Glucose NEGATIVE (NEG); Urine Protein 2+ (NEG); Urine Urobilinogen 0.2 mg/dL (0.2-1.0)
[2019-03-17 02:13] LABS: Urine Microscopic Reflex ORDER UMIC
[2019-03-17 03:19] LABS: Urine Bacteria <20 /HPF (<20); Urine Culture Reflex Order NOT NEEDED; Urine RBC NONE SEEN /HPF (NONE SEEN)
--- NOTE | 2019-03-17 05:56 | EKG ---
Test Date: 2019-03-16 Test Time: 17:29:54 Housemaid: SHEILA MEASUREMENT RESULTS: Intervals: Rate: 62 [place]: 186 QRSD: 184 QT: 550 QTc: 558 [place]: P: 32 [place]: 186 QRS: -55 T: 97 INTERPRETIVE STATEMENTS: Normal sinus rhythm Right bundle branch block Left axis Abnormal ECG Compared to ECG 02/21/2019 08:42:10 no significant change from previous ECG Electronically Signed On 03-17-19 05:55:38 CDT by Jong Cooper
[2019-03-17 06:41] LABS: Potassium 4.1 mmol/L (3.5-5.1)
[2019-03-17] MEDS: FUROSEMIDE 40 MG/4 ML VIAL IV SCH ×2 (08:15→17:20)
[2019-03-17] MEDS ORDERED: CHONDROIT SULF A EACH EYE PRN (11:20)
[2019-03-17] MEDS ORDERED: [UNRECOGNIZED DRUG - OTHER] EACH EYE PRN (11:20)
[2019-03-17] MEDS ORDERED: CYCLOSPORINE EACH EYE PRN (11:20)
[2019-03-17] MEDS ORDERED: FLUTICASONE 110 MCG/PUFF 12 GM INH IH PRN (11:20)
--- NOTE | 2019-03-17 17:29 | PN ---
Date of Progress Note: 03/17/2019 Subjective: The patient is seen and examined, chart reviewed, and case discussed with RN and Dr. Lamont madera. The patient states that she is still having some shortness of breath, especially when she wa lks around going to the bathroom. Physical Examination: Vital Signs: Temperature 99.4, heart rate 68, blood pressure 129/63, respirations 18, O2 of 93% on 2 L via nasal cannula. General: Awake, alert, oriented x3, in some mild acute distress, appears in respiratory distress, el slava female. CV: S1, S2. Regular rate and rhythm. Peripheral pulses present. Respiratory: Diminished breath sounds. No wheezing, crackles heard. Gastrointestinal: Abdomen is soft, nontender, nondistended. Positive bowel sounds. Extremities: No clubbing, cyanosis. The patient has peripheral edema. Neuro: Nonfocal. Code Status: Full. Laboratory Data: Sodium 139, potassium 4.1, chloride 102, CO2 of 27, BUN 75, creatinine 6.47, glucos e 112, calcium 8.9, phosphorus 6. Assessment And Plan: A 68-year-old female with: 1.[id number] kidney injury stage 5, spoke with Dr. Post. The patient will be getting set up for dialysis. Dr. Samuels is to place catheter today. 2.Acute respiratory distress with hypoxia. The patient is requiring supplemental oxygen via nasal c annula secondary to pulmonary edema from [id number] kidney disease. 3.Pulmonary edema. We will continue diuretics. The patient will likely need dialysis for further i mprovement. 4.Hyperphosphatemia. We will monitor. 5.Coronary artery disease, [place] artery and [place] heart without angina, stable. We will resume ho mi medications. 6.History of aortic valve replacement. 7.Systemic lupus erythematosus. 8.Anemia of chronic disease. We will monitor H and H, likely due to chronic kidney disease. Plan: Anticipate dialysis catheter placement and initiation of dialysis. Follow up on hepatitis mignon stiles. /MODL Voice ID: [id number] Report ID: [id number]
--- NOTE | 2019-03-17 21:11 | CON ---
Date of Consultation: 03/17/2019 Diagnosis: Renal failure. History Of Present Illness: This is a case of a 68-year-old patient with multiple medical problems. On renal failure and need for hemodialysis catheter, surgical consult was obtained. The patient ca me to the hospital initially complaining of shortness of breath. Medical doctors were working on nellie t, found to have creatinine of 6.3. Review of Systems: Ten-points otherwise unremarkable. Medications: Include aspirin, Lipitor, lopressor, Zoloft, Lasix. Medical Problems: Hypertension, heart disease, breast biopsies. Surgeries: Include aortic valve replacement and CABG. Family History: Heart disease, diabetes. Physical Examination: GENERAL: The patient is awake and alert. HEENT: Pupils are equal and reactive, anicteric. NECK: Supple. CHEST: Clear. ABDOMEN: Soft and depressible. EXTREMITIES: Good capillary refill. Laboratory Data: On blood work, WBC count 7.9 with hemoglobin of 9.1, platelets of 96. Creatinine i s 6.47 with potassium 4.1. Chest x-ray consistent with congestive heart failure. Assessment: A 68-year-old patient, in need for hemodialysis. Hemodialysis catheter were requested. The benefits, alternatives, and risks of hemodialysis catheter placement fully explained which inclu de but are not limited to infection, bleeding, damage to adjacent structures, anesthesia complication , hemothorax, pneumothorax, DVTs, pulmonary emboli, pericarditis, endocarditis, pericardiac tamponade , MA, even . She also understands this may not relieve the symptoms. She might need more than one surgical intervention. REY/HECTOR Voice ID: [id number] Report ID: [id number]
--- NOTE | 2019-03-17 21:19 | P.CNS ---
Date of Consult: 03/17/19 Reason for Consult: CKD and fluid overload Chief Complaint: acute on CKD, pulmonary edema History of Present Illness: A 68 Y/o woman with PMhx of CKD 5, SLE , CAD S/P CABG , HTN and aortic valve replacement presented with SOB and chest tightness pt with CKD 5, f/u with commercial credit officer at [facility], GFR noticed to be 10, 1 month ago, as per pt results faxed to her commercial credit officer but didnt f/u pt found to have pulmonary edema, improved on lasix now symptoms improved , no chest pain, headache or palpitation Allergies No Known Drug Allergies Allergy (Verified 03/16/19 21:40) Unknown Home Medications: Cyclosporine/Chondroit Sulf A [Cyclosporine 0.1% in Klarity] 1 drop EACH EYE BID PRN 11/05/18 Fluticasone [Flovent Hfa 110*] 1 spray IH BID PRN 11/05/18 Aspirin [Low Dose Aspirin EC] 1 tab PO DAILY 03/16/19 Atorvastatin Calcium [Lipitor] 0.5 tab PO DAILY 03/16/19 Calcitriol [Rocaltrol] 1 cap PO DAILY 03/16/19 Diltiazem HCl [Cartia Xt] 1 cap PO DAILY 03/16/19 Febuxostat [Uloric] 1 tab PO DAILY 03/16/19 Furosemide [Lasix] 1 tab PO BID 03/16/19 Hydroxychloroquine Sulfate 1 tab PO DAILY 03/16/19 Metoprolol Tartrate 1 tab PO BID 03/16/19 Sertraline [Zoloft*] 1.5 tab PO DAILY 03/16/19 Sodium Bicarbonate 1,500 mg PO SEECOM 03/16/19 - Past Medical/Surgical History Diabetic: No -: Hypertension -: Aortic valve replacement -: Coronary artery disease, CABG x1 vessel -: Lupus -: Chronic renal disease -: Anemia of chronic disease -: Depression -: Aortic valve replacement -: CABG x1 vessel -: Breast biopsies -: DandC Psychosocial/ Personal History: The patient is . She has children. She does not work. - Family History Mother Medical History: Other (see notes) Notes: ALS Father Medical History: Heart disease, Diabetes - Social History Smoking Status: Never smoker Alcohol use: Yes CD- Drugs: No Caffeine use: Yes Place of Residence: Home Physical Examination Temp Pulse Resp BP Pulse Ox 98.9 F 71 18 132/63 96 03/17/19 16:00 03/17/19 17:20 03/17/19 16:00 03/17/19 17:20 03/17/19 16:00 General: In no apparent distress, Oriented x3 HEENT: Atraumatic Neck: Supple, Without JVD or thyroid abnormality Respiratory: Clear to auscultation bilaterally, Normal air movement Cardiovascular: No edema, Normal pulses, Regular rate/rhythm, Normal S1 S2, No gallops, No rubs, No murmurs Gastrointestinal: Normal bowel sounds, Soft and benign Integumentary: No rashes - Problems (1) CKD (chronic kidney disease), stage V Onset Date: 09/26/18 Current Visit: No Status: Acute (2) Dyspnea Onset Date: 11/06/18 Current Visit: No Status: Acute (3) Anemia Onset Date: 11/02/16 Current Visit: No Status: Chronic Qualifiers: Anemia type: other cause Other causes of anemia: chronic disease, kidney Qualified Code(s): N18.9 - Chronic kidney disease, unspecified Conclusions/Impression: ESRD Pt agreed t start HD HD tomorrow after tunnled catheter placement renal dose meds metabolic bone disease will start renvela Anemia will start BERNARD anemia W/U Pulm edema cont lasix for now will dc lasix when start HD SLE resume home meds
[2019-03-17] MEDS: ATORVASTATIN 20 MG TAB PO SCH (21:57)
[2019-03-17] MEDS: METOPROLOL TAR 50 MG TAB PO SCH (21:57)
[2019-03-18] MEDS ORDERED: LORAZEPAM 0.5 MG TABLET PO ONE (00:50)
[2019-03-18 07:09] LABS: Protime INR 1.05
[2019-03-18 07:15] LABS: Ferritin 221.7 ng/mL (8-388); Folic Acid, (Folate) 18.6 ng/mL (3.1-17.5)
[2019-03-18] MEDS: SEVELAMER CARBONATE 800 MG TABLET PO SCH ×3 (08:00→17:49)
[2019-03-18] MEDS ORDERED: NA CHLORIDE 0.9% 500 ML ONE (08:48)
[2019-03-18] MEDS ORDERED: NS 0.9% VIAL 10 ML ONE (08:58)
[2019-03-18] MEDS ORDERED: HEPARIN 5000 UNIT/ML 1 ML VIAL ONE (08:59)
[2019-03-18] MEDS: METOPROLOL TAR 50 MG TAB PO SCH ×2 (09:00→20:38)
[2019-03-18] MEDS: FUROSEMIDE 40 MG/4 ML VIAL IV SCH ×2 (09:00→17:49)
[2019-03-18] MEDS ORDERED: NA CHLORIDE 0.9% 100 ML IV ONE (09:00)
[2019-03-18] MEDS: DILTIAZEM HCL 120 MG SR CAP PO SCH (09:00)
[2019-03-18] MEDS: CALCITROL 0.25 MCG CAP PO SCH (09:00)
[2019-03-18] MEDS: FEBUXOSTAT PO SCH (09:00)
[2019-03-18] MEDS ORDERED: LIDOCAINE 1% 20 ML MDV ONE (09:00)
[2019-03-18] MEDS: SERTRALINE HCL 50 MG TAB PO SCH (09:00)
[2019-03-18] MEDS ORDERED: MIDAZOLAM HCL 2 MG/2 ML INJ ONE (09:01)
[2019-03-18] MEDS ORDERED: PROPOFOL 200 MG/20 ML VIAL IV ONE (09:01)
[2019-03-18] MEDS ORDERED: LIDOCAINE 2% MPF 5 ML VIAL ONE (09:01)
[2019-03-18] MEDS ORDERED: CEFAZOLIN/SWI 1gm 1 GM/10 ML SYR ONE (09:45)
[2019-03-18] MEDS ORDERED: FENTANYL CITR 100 MCG/2 ML ONE (09:58)
--- NOTE | 2019-03-18 10:37 | RAD REPORT ---
EXAM DESCRIPTION: RAD - Fluoroscopy <1 Hour - 03/18/2019 10:30 am CLINICAL HISTORY: Device placement central venous catheter placement FINDINGS: A central venous catheter was placed into the superior vena cava. 6 fluoroscopic spot imag es are submitted. The examination was performed by Dr. Samuels Fluoroscopy time 0.6 minutes
--- NOTE | 2019-03-18 10:47 | P.BOP ---
Preoperative diagnosis: ESRD Postoperative diagnosis: same Primary procedure: 1. Placement of Hemosplit Hemodialysis catheter Secondary procedure: 2. interpretation of fluoroscopy Other procedure(s): 3. ultrasound of right neck Estimated blood loss: <10cc Specimen: none Findings: as above Anesthesia: General Complications: None Transferred to: Recovery Room Condition: Good
--- NOTE | 2019-03-18 11:07 | RAD REPORT ---
EXAM DESCRIPTION: Dolly Single View03/18/2019 10:59 am CLINICAL HISTORY: Device placement/central venous catheter placement COMPARISON: March 16, 2019 FINDINGS: Tips of a central venous catheter lie within the superior vena cava. A pneumothorax is not present. Mild pulmonary edema The heart is mildly to moderately enlarged. Postsurgical changes involve the chest. IMPRESSION: Central venous catheter with its tips in the superior vena cava
[2019-03-18] MEDS ORDERED: NA CHLORIDE 0.9% 1,000 ML IV PRN (15:27)
[2019-03-18] MEDS: EPOETIN ALFA 4,000 UNIT/ML VIAL SQ SCH (15:55)
--- NOTE | 2019-03-18 15:57 | PN ---
Date of Progress Note: 03/18/2019 Chief Complaint: Chronic kidney disease, fluid overload, pulmonary edema, respiratory failure. Subjective: The patient has history of chronic kidney disease stage 5, who was followed by right of way appraiser at [facility]. On admission, the patient was found to have severe fluid overload as well as respiratory failure with pulmonary edema. The patient has history of hypertension, coronary artery disease, SLE, status post CABG, previously she had aortic valve replacement done. The patient was complaining of shortness of breath and chest tightness. She is undergoing catheter placement to start dialysis today. Review of Systems: Unobtainable. The patient is somewhat lethargic. She denies new complaints. Physical Examination: Lungs: Crackles bilaterally present. Heart: S1 and S2. No pericardial friction rub. Abdomen: Soft and benign. Extremities: Edema present. Laboratory Data: Hemoglobin 9.1, WBC 7.9, platelet count 96,000. Chemistries showed BUN 75, creatinine 6.47, phosphorus 6.0, calcium 8.9, sodium 139, potassium 4.1, chloride 102, CO2 is 27. Impression And Plan: 1. Dxzmq-ax-apgdpjd kidney injury with advanced chronic kidney disease. The patient will need to start dialysis today to control fluid overload. The patient has fluid overload, pulmonary edema, presented with hypoxemic respiratory failure. Chest x-ray showed bilateral infiltrates. Heart is mildly enlarged and mild pulmonary edema was present. The patient will continue diuretics, low-sodium diet, and p.o. fluid restriction. The patient needs to be rule out for acute coronary syndrome. 2. Anemia. Monitor hemoglobin level. Adjust treatment with NORMA. Check iron studies. 3. Renal osteodystrophy. Continue renal diet as tolerated and monitor phosphorus level. Adjust binders. I spent 36 min including 25 min to coordinate care plan. FLOWER/HECTOR Voice ID: [id number] Report ID: [id number] MIGUEL
--- NOTE | 2019-03-18 16:03 | PN ---
Date of Progress Note: 03/18/2019 Subjective: Patient is seen and examined, chart reviewed and case discussed with RN. The patient is doing well. Still having some shortness of breath. The patient went for dialysis catheter placemen t today. Tolerated procedure well. Medications: List reviewed. Physical Examination: Vital Signs: Temperature 97.7, heart rate 64, blood pressure 123/61, respirations 20, O2 is 97% on 3 liters via nasal cannula. General: Awake, alert, and oriented x3. Elderly female, ill-appearing. CV: S1, S2. Regular rate and rhythm. Peripheral pulses present. Respiratory: Diminished breath sounds. No wheezing or stridor. Gastrointestinal: Abdomen is soft, nontender, nondistended. Positive bowel sounds. No guarding or rigidity. Extremities: No clubbing, cyanosis. Trace pedal edema. Neurologic: Nonfocal. Laboratory Data: Iron 27, TIBC 304, transferrin 217, ferritin 221, vitamin B12 1399, serum folate 18 .6. Chest x-ray, personally reviewed, shows central venous catheter with tip in the superior vena ca va, mild pulmonary edema, personally reviewed. Assessment And Plan: A 68-year-old female with; 1.Acute on chronic kidney injury stage 5. The patient now with dialysis catheter, going for dialysi s today. Appreciate Dr. Samuels' input and Dr. Fuentes's input. 2.Acute respiratory distress with hypoxia. The patient currently on 3 liters via nasal cannula, lik martin anticipate improvement with dialysis. 3.Pulmonary edema. Continue diuretics. We will repeat chest x-ray once the patient has been dialyz ed. 4.Hyperphosphatemia. We will continue to monitor. The patient is scheduled for dialysis. 5.Coronary artery disease, [place] artery and [place] heart without angina, stable. Continue home med ications. 6.History of aortic valve replacement. 7.Systemic lupus erythematosus. 8.Anemia of chronic disease. H and H are stable. We will continue to monitor. Likely due to anemi a of chronic kidney disease. 9.Deep vein thrombosis prophylaxis, addressed. Plan: Initiate dialysis. SA/MODL Voice ID: [id number] Report ID: [id number]
--- NOTE | 2019-03-18 17:53 | OP ---
Date of Procedure: 03/18/2019 Surgeon: Nabor Samuels MD Preoperative Diagnosis: End-stage renal disease. Postoperative Diagnosis: End-stage renal disease. Procedures: 1.Placement of a HemoSplit hemodialysis catheter. 2.Interpretation of fluoroscopy. 3.Ultrasound of the right neck. Specimen: None. Anesthesia: MAC plus local. Indications: This is the case of a female who comes to us in need of hemodialysis. So catheter plac ement in the form of HemoSplit was requested. With benefits, alternatives, and risks explained to he r, and the family which include, but not limited to infection, bleeding, damage to adjacent structure s, anesthesia complication, hemothorax, pneumothorax, pericardiac tamponade, cardiac arrhythmias, end ocarditis, DVTs, PE, PR, even . She also understands this may not relieve any symptoms. She mi ght need more than one surgical intervention. She understands this is a temporary catheter. She sig rambo a consent. She was also explained the risks of pneumothorax. Procedure In Detail: The patient was brought to the operating room, placed in supine position. A ti me-out was called. Right neck and chest were prepped and draped in a sterile fashion. The patient p laced in Trendelenburg position. Local anesthetic was applied. Ultrasound of the neck was done. Th e pain was localized. An 18-gauge needle was placed in the right internal jugular vein at the first attempt. A guidewire was passed through. The needle was removed. A small incision was made in the right upper chest after putting local anesthetic. A catheter was tunneled through that area to that incision in the right neck. That dilators were used under fluoroscopy guidance through the guidewire until we had an introducer sheath. The guidewire was removed. The catheter was placed through the introducer sheath, and then introducer sheath was removed. Excellent backflow and inflow. The vangie ter looked nice and aligned. The catheter was secured in place with 3-0 nylon. Subcuticular closure was done with 3-0 chromic. Heparinized solution was placed over the area. The patient tolerated th e procedure well. The patient was brought back from Trendelenburg position to normal position and th en sent to Recovery in stable condition, when the chest x-ray was stat ordered. REY/HECTOR Voice ID: [id number] Report ID: [id number]
[2019-03-18] MEDS: ATORVASTATIN 20 MG TAB PO SCH (20:38)
[2019-03-19 05:45] LABS: Absolute Lymphocytes (CBC) 0.8 K/uL (0.7-4.9); Absolute Monocytes 0.8 K/uL (0.1-1.3); Basophils % 0.4 % (0-1.3); Eosinophils % 1.1 % (0-4.4); Hematocrit 27.2 % (36.0-45.0); Lymphocytes % 12.5 % (15.3-44.8); MPV 10.4 fL (7.6-11.3); Monocytes % 11.2 % (3.3-12.3); RBC Red Blood Cell Count 3.05 M/uL (3.86-4.86)
[2019-03-19 06:04] LABS: Magnesium 2.7 mg/dL (1.8-2.4); Phosphorus 4.5 mg/dL (2.5-4.9); Potassium 3.5 mmol/L (3.5-5.1)
[2019-03-19] MEDS: FEBUXOSTAT PO SCH (09:00)
[2019-03-19] MEDS: SERTRALINE HCL 50 MG TAB PO SCH (09:03)
[2019-03-19] MEDS: SEVELAMER CARBONATE 800 MG TABLET PO SCH ×3 (09:04→16:28)
[2019-03-19] MEDS: DILTIAZEM HCL 120 MG SR CAP PO SCH (09:05)
[2019-03-19] MEDS: METOPROLOL TAR 50 MG TAB PO SCH ×2 (09:05→21:34)
[2019-03-19] MEDS: CALCITROL 0.25 MCG CAP PO SCH (09:05)
[2019-03-19] MEDS: FUROSEMIDE 40 MG/4 ML VIAL IV SCH ×2 (09:06→17:02)
--- NOTE | 2019-03-19 15:55 | PN ---
Date of Progress Note: 03/19/2019 Subjective: The patient is seen and examined, chart reviewed, and case discussed with RN. The patie nt is tolerating dialysis well. States her breathing has improved. No acute events overnight. Medications: List reviewed. Physical Examination: Vital Signs: Temperature 97.6, heart rate 61, blood pressure 104/62, respirations 18, O2 98% on 3 L via nasal cannula. General: Awake, alert, oriented x3, elderly female, in no respiratory distress. CV: S1, S2. Regular rate and rhythm. Peripheral pulses present. Respiratory: Diminished breath sounds. Some crackles heard, significantly improved from previous. Gastrointestinal: Abdomen is soft, nontender, nondistended. Positive bowel sounds. Extremities: No clubbing or cyanosis. Trace pedal edema. Neurologic: Nonfocal. Laboratory Data: Sodium 141, potassium 3.5, chloride 104, CO2 of 28, BUN 50, creatinine 4.94, glucos e 123, calcium 8.9, phosphorus 4.5, magnesium 2.7. WBC 6.7, H and H 9.5/27.2, platelets 97. Assessment: A 68-year-old female with: 1.Cobap-dy-jjtuakp kidney injury stage 5, now started on dialysis. 2.Acute respiratory distress with hypoxia. The patient is still on 3 L. We will likely wean as fatou erated. The patient's lung sounds significantly better secondary to above. 3.Pulmonary edema. Continue diuretics. 4.Hyperphosphatemia. Continue dialysis and monitor. 5.Coronary artery disease, [place] artery of [place] heart without angina, stable on medications. 6.History of aortic valve replacement. 7.Systemic lupus erythematosus, stable. 8.Anemia of chronic disease. Hemoglobin and hematocrit stable secondary to anemia of chronic kidney disease. Iron panel reviewed. 9.Deep vein thrombosis prophylaxis addressed. 10.Thrombocytopenia. No indication for transfusion at this time. We will continue to monitor. No active bleeding at this time. Plan: Freight Car Loader consult to set up hemodialysis as outpatient. SA/MODL Voice ID: [id number] Report ID: [id number]
[2019-03-19] MEDS: ATORVASTATIN 20 MG TAB PO SCH (21:34)
--- NOTE | 2019-03-20 01:26 | PN ---
Date of Progress Note: 03/19/2019 Chief Complaint: Chronic kidney disease, fluid overload, pulmonary edema, respiratory failure. History Of Present Illness: The patient has history of chronic kidney disease stage 5. She was foll owed by stop attacher in [place]. On this admission the patient was found to have severe fluid over load, pulmonary edema, respiratory failure with hypoxemia. The patient underwent tunneled dialysis c atheter placement. Dialysis was initiated yesterday. The patient is feeling better. Review of Systems: Denies fever, chills. Physical Examination: Lungs: Few wheezes. Heart: S1, S2. Abdomen: Soft, benign. Extremities: Slight edema present. Impression And Plan: 1.Acute on chronic kidney injury with advanced chronic kidney disease. The patient likely has end-s tage renal disease and at this point the patient needs to continue dialysis 3 times per week. 2.Chest x-ray showed bilateral infiltrates. Heart is mildly enlarged and there is mild pulmonary ed troy present. The patient will continue loop diuretics and dialysis with ultrafiltration. 3.Dialysis will be done tomorrow. 4.The patient needs to be ruled out for acute coronary syndrome. 5.Anemia. Hemoglobin level is stable. Continue BERNARD. Monitor iron test. 6.Renal osteodystrophy. Continue renal diet and binders. EB/MODL Voice ID: [id number] Report ID: [id number]
[2019-03-20 03:38] LABS: HBsAG Nonreactive (Nonreactive)
[2019-03-20 06:02] LABS: Absolute Lymphocytes (CBC) 1.3 K/uL (0.7-4.9); Absolute Monocytes 0.8 K/uL (0.1-1.3); Absolute Neutrophil 4.5 K/uL (1.8-8.0); Basophils % 0.6 % (0-1.3); Eosinophils % 3.3 % (0-4.4); Hematocrit 28.6 % (36.0-45.0); MPV 10.1 fL (7.6-11.3); RBC Red Blood Cell Count 3.19 M/uL (3.86-4.86)
[2019-03-20 06:04] LABS: Potassium 3.6 mmol/L (3.5-5.1)
[2019-03-20] MEDS: DILTIAZEM HCL 120 MG SR CAP PO SCH (08:56)
[2019-03-20] MEDS: METOPROLOL TAR 50 MG TAB PO SCH ×2 (08:56→21:00)
[2019-03-20] MEDS: SEVELAMER CARBONATE 800 MG TABLET PO SCH ×3 (08:56→16:48)
[2019-03-20] MEDS: CALCITROL 0.25 MCG CAP PO SCH (08:57)
[2019-03-20] MEDS: SERTRALINE HCL 50 MG TAB PO SCH (08:57)
[2019-03-20] MEDS: FUROSEMIDE 40 MG/4 ML VIAL IV SCH ×2 (08:58→17:00)
[2019-03-20] MEDS: FEBUXOSTAT PO SCH (08:58)
[2019-03-20] MEDS: EPOETIN ALFA 4,000 UNIT/ML VIAL SQ SCH (12:59)
--- NOTE | 2019-03-20 18:08 | PN ---
Date of Progress Note: 03/20/2019 Subjective: The patient seen and examined. Chart reviewed and case discussed with RN and nephrologroney traore. The patient is doing well. Tolerated dialysis well, scheduled today. Medications: List reviewed. Physical Examination: Vital Signs: Temperature 97, heart rate 62, blood pressure 119/57, respirations 18, O2 100% on 2 L v ia nasal cannula. General: Awake, alert, oriented x3. Elderly female, not in any acute distress. CV: S1, S2. Regular rate and rhythm. Peripheral pulses present. Respiratory: Moving air well bilaterally. No wheezing or stridor. No use of accessory muscles. Gastrointestinal: Abdomen is soft, nontender, nondistended. Positive bowel sounds. Extremities: No clubbing, cyanosis. Trace pedal edema. Neurologic: Nonfocal. Laboratory Data: Sodium 141, potassium 3.6, chloride 105, CO2 27, BUN 69, creatinine 5.57, glucose 1 13, calcium 9.1. WBC 6.9, H and H 9.9, 28.6, platelets 127, neutrophils 65%. Assessment And Plan: A 68-year-old female with: 1.Iwkxr-df-baprrzo kidney injury stage 5. Initiated on dialysis. The patient is tolerating dialysi s well. Currently undergoing set up with [employer] as an outpatient. 2.Acute respiratory distress with hypoxia. The patient now on 2 L via nasal cannula. We will carina nue to wean off as tolerated. Distress is secondary to above. 3.Pulmonary edema, improved with dialysis. We will back off on diuretics. 4.Hyperphosphatemia, improved with dialysis. Continue to monitor. 5.Coronary artery disease. [place] artery and [place] heart without angina, stable. We will continue medications. 6.History of aortic valve replacement. 7.Systemic lupus erythematosus, stable. 8.Anemia of chronic disease secondary to chronic kidney disease. H and H are stable. 9.Thrombocytopenia, improving. No active bleeding. We will monitor at this time, unclear etiology. We will need further workup as outpatient. 10.Deep venous thrombosis prophylaxis addressed. Plan: Discharge once hemodialysis has been set up as outpatient. SA/MODL Voice ID: [id number] Report ID: [id number]
[2019-03-20] MEDS: ATORVASTATIN 20 MG TAB PO SCH (21:18)
--- NOTE | 2019-03-21 02:24 | PN ---
Date of Progress Note: 03/20/2019 Chief Complaint: End-stage renal disease, new onset. The patient had tunnelled dialysis catheter placed for dialysis access. The patient has fluid overload. Ultrafiltration was obtained and the leg edema has improved. Review of Systems: Denies fever, chills. Physical Examination: Lungs: Few crackles at base. Heart: S1, S2. Abdomen: Soft, benign. Extremities: Slight edema present. Assessment And Plan: 1. Acute on chronic kidney injury with advanced chronic kidney disease. The patient likely has end-stage renal disease. Continue dialysis 3 times per week. 2. Chest x-ray showed bilateral infiltrate. Heart is mildly enlarged and there is mild pulmonary edema present. The patient will continue diuretics along with dialysis and ultrafiltration. 3. Anemia. Hemoglobin level stable. Continue BERNARD. 4. Renal osteodystrophy. Continue renal diet and binders. EB/MODL Voice ID: [id number] Report ID: [id number] MTDD
[2019-03-21 06:55] LABS: Potassium 3.7 mmol/L (3.5-5.1)
[2019-03-21 06:58] LABS: Absolute Lymphocytes (CBC) 1.4 K/uL (0.7-4.9); Absolute Neutrophil 3.9 K/uL (1.8-8.0); Basophils % 0.5 % (0-1.3); Eosinophils % 2.5 % (0-4.4); Hematocrit 32.3 % (36.0-45.0); Lymphocytes % 21.5 % (15.3-44.8); MPV 9.5 fL (7.6-11.3); Monocytes % 15.3 % (3.3-12.3); RBC Red Blood Cell Count 3.58 M/uL (3.86-4.86)
[2019-03-21] MEDS ORDERED: POTASSIUM CL SA 10 MEQ TAB PO ONE (09:00)
[2019-03-21] MEDS: METOPROLOL TAR 50 MG TAB PO SCH (09:00)
[2019-03-21] MEDS: FEBUXOSTAT PO SCH (09:00)
[2019-03-21] MEDS: DILTIAZEM HCL 120 MG SR CAP PO SCH (09:51)
[2019-03-21] MEDS: SEVELAMER CARBONATE 800 MG TABLET PO SCH ×3 (09:51→16:26)
[2019-03-21] MEDS: FUROSEMIDE 40 MG/4 ML VIAL IV SCH ×2 (09:52→16:26)
[2019-03-21] MEDS: SERTRALINE HCL 50 MG TAB PO SCH (09:53)
[2019-03-21] MEDS: CALCITROL 0.25 MCG CAP PO SCH (09:53)
--- NOTE | 2019-03-21 16:45 | P.PN ---
Subjective Date of Service: 03/21/19 Chief Complaint: acute on CKD, pulmonary edema Subjective: Improving Patient seen and examined at bedside. No family at bedside. Chart reviewed and case discussed with nursing staff. Reports no distress in breathing. Denies any complaints this morning. No acute events noted overnight Review of Systems 10-point ROS is otherwise unremarkable Physical Examination - Vital Signs Temperature: 97.7 F Blood Pressure: 90/60 Pulse: 73 Respirations: 18 Pulse Ox (%): 96 - Physical Exam General: Alert, In no apparent distress, Oriented x3 HEENT: Atraumatic, PERRLA, EOMI Neck: Supple, JVD not distended Respiratory: Clear to auscultation bilaterally, Normal air movement Cardiovascular: Regular rate/rhythm, Normal S1 S2 Gastrointestinal: Normal bowel sounds, No tenderness Musculoskeletal: No tenderness Integumentary: No rashes Neurological: Normal speech, Normal tone, Normal affect Lymphatics: No axilla or inguinal lymphadenopathy Assessment And Plan - Plan A 68-year-old female with: Apcit-jm-hxzjrzg kidney injury stage 5. Initiated on dialysis. The patient is tolerating dialysis well. Currently undergoing set up with [employer] as an outpatient. Acute respiratory distress with hypoxia. The patient now on 2 L via nasal cannula. We will continue to wean off as tolerated. Distress is secondary to above. Pulmonary edema, improved with dialysis. We will back off on diuretics. Hyperphosphatemia, improved with dialysis. Continue to monitor. Coronary artery disease. [place] artery and [place] heart without angina, stable. We will continue medications. History of aortic valve replacement. Systemic lupus erythematosus, stable. Anemia of chronic disease secondary to chronic kidney disease. H and H are stable. Thrombocytopenia, improving. No active bleeding. We will monitor at this time , unclear etiology. We will need further workup as outpatient. Deep venous thrombosis prophylaxis addressed. Plan: Discharge once hemodialysis has been set up as outpatient. Discharge Plan: Home
--- NOTE | 2019-03-21 16:59 | PN ---
Date of Progress Note: 03/21/2019 Subjective: The patient had chronic kidney disease, was admitted with the worsening kidney function and hyperkalemia, initiated on dialysis. Physical Examination: Vital Signs: When I saw the patient, blood pressure 91/53, pulse of 71. Chest: Clear to auscultation. Heart: S1, S2. Regular. Abdomen: Soft, nontender. Extremities: No edema. Laboratory Data: WBC 6.4, H and H 10.9/32.3, platelet 125. Sodium of 137, potassium 3.7, bicarb 26, BUN 43, creatinine 4.5, calcium 9.3, T-sat 8.9, ferritin 221, B12 1399, folate 18. Current Medications: The patient on it includes: 1.Epogen. 2.Heparin. 3.Diltiazem 240 daily. 4.Metoprolol 50 b.i.d. 5.Zoloft. 6.Renvela. 7.Lasix 40 b.i.d. 8.Calcitriol. Assessment And Plan: 1.Chronic kidney disease, end-stage renal disease, was initiated on dialysis. We will continue dial ysis Wednesday, Wednesday, Wednesday, and we will monitor the patient. 2.Anemia of chronic kidney disease, iron-deficiency anemia. Continue Epogen. We will start the pat ient on iron. 3.Secondary hyperparathyroid. Continue calcitriol. Continue binder with the Renvela. 4.Systemic lupus erythematosus, stable. The patient waiting for placement as outpatient dialysis. ZULAY Voice ID: [id number] Report ID: [id number]
[2019-03-21] MEDS: ATORVASTATIN 20 MG TAB PO SCH (20:17)
[2019-03-21] MEDS: METOPROLOL TAR 25 MG TAB PO SCH (20:17)
[2019-03-22 06:21] LABS: Potassium 4.7 mmol/L (3.5-5.1)
[2019-03-22] MEDS: SEVELAMER CARBONATE 800 MG TABLET PO SCH ×3 (08:18→17:00)
[2019-03-22] MEDS: SERTRALINE HCL 50 MG TAB PO SCH (08:18)
[2019-03-22] MEDS: CALCITROL 0.25 MCG CAP PO SCH (08:18)
[2019-03-22] MEDS: FEBUXOSTAT PO SCH (09:00)
[2019-03-22] MEDS: METOPROLOL TAR 25 MG TAB PO SCH ×2 (09:00→21:00)
[2019-03-22] MEDS: FUROSEMIDE 40 MG/4 ML VIAL IV SCH ×2 (09:37→17:00)
[2019-03-22] MEDS: DILTIAZEM HCL 120 MG SR CAP PO SCH (09:38)
--- NOTE | 2019-03-22 11:40 | P.DS ---
Admission Date: 03/16/19 Discharge Date: 03/22/19 Disposition: ROUTINE DISCHARGE Discharge Condition: GOOD Reason for Admission: acute on CKD, pulmonary edema Consultations: Nephrology General surgery Procedures: 03/18/2019: Hemosplit catheter placement with Dr. Samuels Brief History of Present Illness: Ms Haywood is a 68 years old woman with history of Lupus, CKD, HTN, AVR, CAD s/p CABG, who came to ED complaining of SOB. The patient states that she was doing well until this morning, when she start with her symptoms. She was also complaining of abdominal pain, mostly localized on her RUQ. She denied chest pain, nausea, vomiting, fever or chills. The patient has been followed up in [facility] for her CKD, lab work today shows increasing creatinine level 6.3 compared with 1 month ago 5.2. Her current EGFR is 7. She is still making urine. Abd US shows thickened gallbladder wall but not stone or sludge. CXR consistent with moderate CHF. Rest of her lab work remarkable for pro-BNP 175K, elevated trop I , likely due to worsening renal failure. Hospital Course: Patient was admitted for acute on chronic kidney injury, stage 5. Nephrology was consulted. Patient was initiated on hemodialysis during this hospitalization. Dr. Samuels, general surgery was consulted for a temporary catheter placement. Patient tolerated this well. She was started on hemodialysis during this hospitalization, which she tolerated well. Social work was consulted to set up outpatient dialysis chair time. Her discharge was prolonged for chair time as an outpatient. Patient also had acute respiratory distress with hypoxia, she was provided with supplemental oxygen via nasal cannula. This was likely secondary to her acute on chronic kidney disease. Her symptoms of respiratory distress improved and resolved prior to discharge. She was off of oxygen prior to discharge as well. She was satting well on room air remained hemodynamically stable. Prior to discharge, patient was alert oriented x3, in no acute distress and hemodynamically stable. She was on room air, satting well. She was ambulating and tolerating oral diet. For treatment plan/diagnoses were explained to her. All questions were answered and patient verbalized understanding. She was then discharged home in a safe and stable manner. She will be discharged once her dialysis session is completed today as well as her outpatient shared time has been set up and approved Vital Signs/Physical Exam: Temp Pulse Resp BP Pulse Ox 97.2 F 78 18 133/68 99 05/08/19 08:00 03/22/19 09:38 03/22/19 08:00 03/22/19 09:38 03/22/19 08:00 General: Alert, In no apparent distress, Oriented x3 HEENT: Atraumatic, PERRLA, EOMI Neck: Supple, JVD not distended Respiratory: Clear to auscultation bilaterally, Normal air movement Cardiovascular: Regular rate/rhythm, Normal S1 S2 Gastrointestinal: Normal bowel sounds, No tenderness Musculoskeletal: No tenderness Integumentary: No rashes Neurological: Normal speech, Normal tone, Normal affect Lymphatics: No axilla or inguinal lymphadenopathy Laboratory Data at Discharge: WBC 6.4 K/uL (4.3-10.9) 03/21/19 06:03 Hgb 10.9 g/dL (12.0-15.0) L 03/21/19 06:03 Hct 32.3 % (36.0-45.0) L 03/21/19 06:03 Plt Count 125 K/uL (152-406) L 03/21/19 06:03 PT 12.4 SECONDS (9.5-12.5) 03/18/19 06:18 INR 1.05 03/18/19 06:18 APTT 27.2 SECONDS (24.3-36.9) 03/18/19 06:18 Sodium 139 mmol/L (136-145) 03/22/19 05:23 Potassium 4.7 mmol/L (3.5-5.1) 03/22/19 05:23 BUN 65 mg/dL (7-18) H D 03/22/19 05:23 Creatinine 6.46 mg/dL (0.55-1.3) H* D 03/22/19 05:23 Glucose 103 mg/dL (74-106) 03/22/19 05:23 Phosphorus 4.5 mg/dL (2.5-4.9) 03/19/19 05:20 Magnesium 2.7 mg/dL (1.8-2.4) H 03/19/19 05:20 Total Bilirubin 0.5 mg/dL (0.2-1.0) 03/16/19 17:35 AST 24 U/L (15-37) 03/16/19 17:35 ALT 19 U/L (12-78) 03/16/19 17:35 Alkaline Phosphatase 74 U/L (45-117) 03/16/19 17:35 Troponin I 0.23 ng/mL (0.0-0.045) H 03/16/19 17:35 Lipase 115 U/L (73-393) 03/16/19 17:35 Home Medications: Cyclosporine/Chondroit Sulf A [Cyclosporine 0.1% in Klarity] 1 drop EACH EYE BID PRN 11/05/18 Fluticasone [Flovent Hfa 110*] 1 spray IH BID PRN 11/05/18 Aspirin [Low Dose Aspirin EC] 1 tab PO DAILY 03/16/19 Atorvastatin Calcium [Lipitor] 0.5 tab PO DAILY 03/16/19 Calcitriol [Rocaltrol] 1 cap PO DAILY 03/16/19 Diltiazem HCl [Cartia Xt] 1 cap PO DAILY 03/16/19 Febuxostat [Uloric] 1 tab PO DAILY 03/16/19 Furosemide [Lasix] 1 tab PO BID 03/16/19 Hydroxychloroquine Sulfate 1 tab PO DAILY 03/16/19 Metoprolol Tartrate 1 tab PO BID 03/16/19 Sertraline [Zoloft*] 1.5 tab PO DAILY 03/16/19 Sodium Bicarbonate 1,500 mg PO SEECOM 03/16/19 Patient Discharge Instructions: Please follow up with the primary care physician in 2-3 days. Please follow up with our urologist in 2 weeks. Please make sure you go to your scheduled dialysis sessions. Please return to the emergency room for worsening symptoms Diet: Renal Activity: Ad richie Followup: Charlotte Frank MD [COURTESY - CAN ADMIT] - 1-2 Weeks Time spent managing pt's care (in minutes): 55
[2019-03-22] MEDS: SOD FERRIC GLUC COMPLX/SUCROSE 125 MG in NA CHLORIDE 0.9% 100 ML IV SCH (13:13)
[2019-03-22] MEDS: EPOETIN ALFA 4,000 UNIT/ML VIAL SQ SCH (13:14)
--- NOTE | 2019-03-22 20:40 | PN ---
Date of Progress Note: 03/22/2019 Subjective: The patient has dialysis today. We have difficulty on the catheter as it is positional. Physical Examination: Vital Signs: Blood pressure 133/68, pulse of 78. Chest: Clear to auscultation. Heart: S1, S2. Regular. Abdomen: Soft, nontender. Extremities: Trace edema. Laboratory Data: WBC 6.4, H and H 10.9/32.3, platelets 125. Sodium 139, potassium 4.7, bicarb 26, B UN 65, creatinine 6.4, calcium of 10. Current Medications: The patient on includes: 1.Calcitriol. 2.Atorvastatin. 3.Diltiazem. 4.Epogen. 5.IV iron. 6.Zofran. 7.Renvela. Assessment And Plan: 1.End-stage renal disease. We will continue the patient on dialysis Wednesday, Wednesday, and Wednesday. 2.Secondary hyperparathyroidism, stable. Continue Renvela and calcitriol. 3.Hypertension, controlled. Optimal continue current medication. 4.Anemia of chronic kidney disease. Continue Epogen. 5.Systemic lupus erythematosus, stable. ZULAY Voice ID: [id number] Report ID: [id number]
[2019-03-22] MEDS: ATORVASTATIN 20 MG TAB PO SCH (21:20)
[2019-03-23 06:48] VITALS: BMI 25.0
[2019-03-23] MEDS: FEBUXOSTAT PO SCH (09:00)
[2019-03-23] MEDS: METOPROLOL TAR 25 MG TAB PO SCH ×2 (09:34→20:05)
[2019-03-23] MEDS: SEVELAMER CARBONATE 800 MG TABLET PO SCH ×3 (09:34→16:49)
[2019-03-23] MEDS: FUROSEMIDE 40 MG/4 ML VIAL IV SCH ×2 (09:34→16:49)
[2019-03-23] MEDS: DILTIAZEM HCL 120 MG SR CAP PO SCH (09:35)
[2019-03-23] MEDS: SERTRALINE HCL 50 MG TAB PO SCH (09:35)
[2019-03-23] MEDS: CALCITROL 0.25 MCG CAP PO SCH (09:36)
--- NOTE | 2019-03-23 11:14 | P.PN ---
Subjective Date of Service: 03/23/19 Chief Complaint: acute on CKD, pulmonary edema Subjective: No C/O voiced Patient seen and examined at bedside. No family at bedside. Chart reviewed and case discussed with nursing staff. Reports no distress in breathing. Denies any complaints this morning. No acute events noted overnight Discharge was held yesterday due to catheter needing replacement as it was positional. Review of Systems 10-point ROS is otherwise unremarkable Physical Examination - Vital Signs Temperature: 97.5 F Blood Pressure: 103/61 Pulse: 80 Respirations: 16 Pulse Ox (%): 99 - Physical Exam General: Alert, In no apparent distress, Oriented x3 HEENT: Atraumatic, PERRLA, EOMI Neck: Supple, JVD not distended Respiratory: Clear to auscultation bilaterally, Normal air movement Cardiovascular: Regular rate/rhythm, Normal S1 S2 Gastrointestinal: Normal bowel sounds, No tenderness Musculoskeletal: No tenderness Integumentary: No rashes Neurological: Normal speech, Normal tone, Normal affect Lymphatics: No axilla or inguinal lymphadenopathy Assessment And Plan - Plan A 68-year-old female with: Zieqe-eg-owxzxvi kidney injury stage 5. Initiated on dialysis. The patient is tolerating dialysis well. Outpatient chair times setup with [facility] dialysis. Dialysis catheter malfunction. Catheter needs replacement. Doctor Jose is already on board. Patient is going to OR tomorrow for replacement of the catheter. Acute respiratory distress with hypoxia. The patient now on 2 L via nasal cannula. We will continue to wean off as tolerated. Distress is secondary to above. Pulmonary edema, improved with dialysis. We will back off on diuretics. Hyperphosphatemia, improved with dialysis. Continue to monitor. Coronary artery disease. [place] artery and [place] heart without angina, stable. We will continue medications. History of aortic valve replacement. Systemic lupus erythematosus, stable. Anemia of chronic disease secondary to chronic kidney disease. H and H are stable. Thrombocytopenia, improving. No active bleeding. We will monitor at this time , unclear etiology. We will need further workup as outpatient. Deep venous thrombosis prophylaxis addressed. Plan: Pending catheter replacement tomorrow. She will have her dialysis session here in the hospital. Likely discharge after dialysis and catheter replacement tomorrow. Discharge Plan: Home Plan to discharge in: 24 Hours
[2019-03-23] MEDS ORDERED: CALCITROL 0.25 MCG CAP PO SCH (13:00)
--- NOTE | 2019-03-23 16:56 | PN ---
Date of Progress Note: 03/23/2019 Subjective: The patient doing well, tolerating dialysis, still appositional catheter. Physical Examination: Vital Signs: Blood pressure 103/61, pulse of 80. Chest: Clear to auscultation. Heart: S1, S2. Regular. Abdomen: Soft, nontender. Extremities: No edema. Laboratory Data: H and H 10.9/32.3. Sodium 139, potassium 4.7, bicarb 26, BUN 65, creatinine 6.4, c alcium of 10. Current Medications: Current medications the patient on includes heparin, Epogen, IV iron, diltiazem 120, atorvastatin, metoprolol 12.5, Zoloft, Renvela 2 tablets with each meal, calcitriol. Assessment And Plan: 1.End-stage renal disease. We will continue the patient on dialysis Wednesday, Wednesday, Wednesday. The patient is going to be scheduled for dialysis tomorrow. 2.Hypertension, controlled, currently on the lower side. I am going to go ahead and discontinue dil tiazem. Continue current dose of beta max. 3.Secondary hyperparathyroidism. I do not see the need for calcitriol as a daily basis. I am going to change it to every other day. 4.Anemia of chronic kidney disease, iron deficiency anemia. Continue current treatment. 5.Malfunction PermCath, going to be exchanged by Surgery tomorrow. ZULAY Voice ID: [id number] Report ID: [id number]
[2019-03-23] MEDS: ATORVASTATIN 20 MG TAB PO SCH (20:03)
[2019-03-24] MEDS: SEVELAMER CARBONATE 800 MG TABLET PO SCH ×3 (08:00→17:00)
[2019-03-24] MEDS: METOPROLOL TAR 25 MG TAB PO SCH ×2 (09:00→21:00)
[2019-03-24] MEDS: FEBUXOSTAT PO SCH (09:00)
[2019-03-24] MEDS: FUROSEMIDE 40 MG/4 ML VIAL IV SCH (09:00)
[2019-03-24] MEDS: SERTRALINE HCL 50 MG TAB PO SCH (09:00)
[2019-03-24] MEDS ORDERED: PROPOFOL 200 MG/20 ML VIAL IV ONE (11:21)
[2019-03-24] MEDS ORDERED: MIDAZOLAM HCL 2 MG/2 ML INJ ONE (11:21)
[2019-03-24] MEDS ORDERED: FENTANYL CITR 100 MCG/2 ML ONE (11:21)
[2019-03-24] MEDS ORDERED: LIDOCAINE 2% MPF 5 ML VIAL ONE (11:21)
[2019-03-24] MEDS ORDERED: NA CHLORIDE 0.9% 500 ML ONE (11:32)
[2019-03-24] MEDS ORDERED: NS 0.9% VIAL 10 ML ONE (11:38)
[2019-03-24] MEDS ORDERED: NA CHLORIDE 0.9% 100 ML IV ONE (11:39)
[2019-03-24] MEDS: LIDOCAINE 1% MPF 30 ML VIAL ONE ×3 (11:39→13:00)
--- NOTE | 2019-03-24 11:43 | P.PN ---
Subjective Date of Service: 03/24/19 Chief Complaint: acute on CKD, pulmonary edema Subjective: Improving BP improving will dc lasix tunneled cath placement today HD after cath placement cleared for discharge after HD Physical Examination - Vital Signs Temperature: 97.0 F Blood Pressure: 113/57 Pulse: 85 Respirations: 17 Pulse Ox (%): 97 - Physical Exam General: In no apparent distress, Oriented x3 HEENT: Atraumatic Neck: Supple, Without JVD or thyroid abnormality Respiratory: Clear to auscultation bilaterally, Normal air movement Cardiovascular: No edema, Regular rate/rhythm Gastrointestinal: Normal bowel sounds Integumentary: No rashes Assessment And Plan - Current Problems (Diagnosis) (1) CKD (chronic kidney disease), stage V Onset Date: 09/26/18 Current Visit: No Status: Acute (2) Dyspnea Onset Date: 11/06/18 Current Visit: No Status: Acute (3) Anemia Onset Date: 11/02/16 Current Visit: No Status: Chronic Qualifiers: Anemia type: other cause Other causes of anemia: chronic disease, kidney Qualified Code(s): N18.9 - Chronic kidney disease, unspecified - Plan ESRD HD today after tunnled catheter placement renal dose meds metabolic bone disease cont binders Anemia on BERNARD SLE resume home meds HTN will dc lasix as Bp is borderline
[2019-03-24] MEDS ORDERED: CEFAZOLIN/SWI 1gm 1 GM/10 ML SYR ONE (12:42)
[2019-03-24] MEDS: HEPARIN 5000 UNIT/ML 1 ML VIAL ONE ×5 (12:53→13:25)
[2019-03-24] MEDS ORDERED: Phenylephrine HCl 10 MG/ML 1 ML VIAL ONE (13:04)
--- NOTE | 2019-03-24 13:37 | P.BOP ---
Preoperative diagnosis: ESRD Postoperative diagnosis: same Primary procedure: 1. Placement of new Hemosplit Hemodialysis catheter Secondary procedure: 2. Removal of previous HD catheter Other procedure(s): 3. Interpretation of fluoroscopy Estimated blood loss: <10cc Specimen: none Findings: as above Anesthesia: General Complications: None Transferred to: Recovery Room Condition: Good
--- NOTE | 2019-03-24 14:11 | RAD REPORT ---
EXAM DESCRIPTION: RAD - Chest Single View - 03/24/2019 2:05 pm CLINICAL HISTORY: Right-sided hemodialysis catheter placement COMPARISON: March 18 TECHNIQUE: AP portable chest image was obtained 1355 hours . FINDINGS: Upright portable exam was obtained following replacement or repositioning of a hemodialysi s catheter. The double-lumen catheter is in place. Short arm of the catheter is in the mid SVC. Long arm of the catheter is near the SVC atrial junction. No pneumothorax. No acute pleural or parenchymal process identified. Heart size is upper normal and s table. No vascular engorgement, failure or volume overload. Sternotomy wires in place. IMPRESSION: Right-sided hemodialysis catheter placement in good position. No pneumothorax.
--- NOTE | 2019-03-24 14:20 | RAD REPORT ---
EXAM DESCRIPTION: RAD - Fluoroscopy <1 Hour - 03/24/2019 2:13 pm FINDINGS: There were 3 portable C-arm views obtained during a fluoroscopic assisted placement of a r ight-sided hemodialysis catheter. No suspicious or unexpected finding. Fluoro time was 45 seconds.
--- NOTE | 2019-03-24 14:30 | P.DS ---
Admission Date: 03/16/19 Discharge Date: 03/24/19 Disposition: ROUTINE DISCHARGE Discharge Condition: GOOD Reason for Admission: acute on CKD, pulmonary edema Consultations: Nephrology General surgery Procedures: 03/18/2019: Hemosplit catheter placement with Dr. Samuels 03/24/2019: 1. Placement of new Hemosplit Hemodialysis catheter Secondary procedure: 2. Removal of previous HD catheter Brief History of Present Illness: Ms Haywood is a 68 years old woman with history of Lupus, CKD, HTN, AVR, CAD s/p CABG, who came to ED complaining of SOB. The patient states that she was doing well until this morning, when she start with her symptoms. She was also complaining of abdominal pain, mostly localized on her RUQ. She denied chest pain, nausea, vomiting, fever or chills. The patient has been followed up in [facility] for her CKD, lab work today shows increasing creatinine level 6.3 compared with 1 month ago 5.2. Her current EGFR is 7. She is still making urine. Abd US shows thickened gallbladder wall but not stone or sludge. CXR consistent with moderate CHF. Rest of her lab work remarkable for pro-BNP 175K, elevated trop I , likely due to worsening renal failure. Hospital Course: Patient was admitted for acute on chronic kidney injury, stage 5. Nephrology was consulted. Patient was initiated on hemodialysis during this hospitalization. Dr. Samuels, general surgery was consulted for a temporary catheter placement. Patient tolerated this well. She was started on hemodialysis during this hospitalization, which she tolerated well. Social work was consulted to set up outpatient dialysis chair time. Her discharge was prolonged for chair time as an outpatient. Patient also had acute respiratory distress with hypoxia, she was provided with supplemental oxygen via nasal cannula. This was likely secondary to her acute on chronic kidney disease. Her symptoms of respiratory distress improved and resolved prior to discharge. She was off of oxygen prior to discharge as well. She was satting well on room air remained hemodynamically stable. Prior to discharge, patient was alert oriented x3, in no acute distress and hemodynamically stable. She was on room air, satting well. She was ambulating and tolerating oral diet. For treatment plan/diagnoses were explained to her. All questions were answered and patient verbalized understanding. She was then discharged home in a safe and stable manner. She will be discharged once her dialysis session is completed today as well as her outpatient shared time has been set up and approved Her discharge was held due to malfunctioning of her dialysis catheter. She was taken back to the OR on 03/24/2019 for removal of old Hemosplit and placement of a new one. She underwent dialysis on 03/24/2019 and was discharged home in a safe and stable manner after her dialysis session. Vital Signs/Physical Exam: Temp Pulse Resp BP Pulse Ox 97.4 F 83 12 104/62 97 03/24/19 14:08 03/24/19 14:08 03/24/19 14:08 03/24/19 14:08 03/24/19 11:43 General: Alert, In no apparent distress, Oriented x3 HEENT: Atraumatic, PERRLA, EOMI Neck: Supple, JVD not distended Respiratory: Clear to auscultation bilaterally, Normal air movement Cardiovascular: Regular rate/rhythm, Normal S1 S2 Gastrointestinal: Normal bowel sounds, No tenderness Musculoskeletal: No tenderness Integumentary: No rashes Neurological: Normal speech, Normal tone, Normal affect Lymphatics: No axilla or inguinal lymphadenopathy Laboratory Data at Discharge: WBC 6.4 K/uL (4.3-10.9) 03/21/19 06:03 Hgb 10.9 g/dL (12.0-15.0) L 03/21/19 06:03 Hct 32.3 % (36.0-45.0) L 03/21/19 06:03 Plt Count 125 K/uL (152-406) L 03/21/19 06:03 PT 12.4 SECONDS (9.5-12.5) 03/18/19 06:18 INR 1.05 03/18/19 06:18 APTT 27.2 SECONDS (24.3-36.9) 03/18/19 06:18 Sodium 139 mmol/L (136-145) 03/22/19 05:23 Potassium 4.7 mmol/L (3.5-5.1) 03/22/19 05:23 BUN 65 mg/dL (7-18) H D 03/22/19 05:23 Creatinine 6.46 mg/dL (0.55-1.3) H* D 03/22/19 05:23 Glucose 103 mg/dL (74-106) 03/22/19 05:23 Phosphorus 4.5 mg/dL (2.5-4.9) 03/19/19 05:20 Magnesium 2.7 mg/dL (1.8-2.4) H 03/19/19 05:20 Total Bilirubin 0.5 mg/dL (0.2-1.0) 03/16/19 17:35 AST 24 U/L (15-37) 03/16/19 17:35 ALT 19 U/L (12-78) 03/16/19 17:35 Alkaline Phosphatase 74 U/L (45-117) 03/16/19 17:35 Troponin I 0.23 ng/mL (0.0-0.045) H 03/16/19 17:35 Lipase 115 U/L (73-393) 03/16/19 17:35 Home Medications: Cyclosporine/Chondroit Sulf A [Cyclosporine 0.1% in Klarity] 1 drop EACH EYE BID PRN 11/05/18 Fluticasone [Flovent Hfa 110*] 1 spray IH BID PRN 11/05/18 Aspirin [Low Dose Aspirin EC] 1 tab PO DAILY 03/16/19 Atorvastatin Calcium [Lipitor] 0.5 tab PO DAILY 03/16/19 Calcitriol [Rocaltrol] 1 cap PO DAILY 03/16/19 Diltiazem HCl [Cartia Xt] 1 cap PO DAILY 03/16/19 Febuxostat [Uloric] 1 tab PO DAILY 03/16/19 Hydroxychloroquine Sulfate 1 tab PO DAILY 03/16/19 Metoprolol Tartrate 1 tab PO BID 03/16/19 Sertraline [Zoloft*] 1.5 tab PO DAILY 03/16/19 Sodium Bicarbonate 1,500 mg PO SEECOM 03/16/19 Patient Discharge Instructions: Please follow up with the primary care physician in 2-3 days. Please follow up with our urologist in 2 weeks. Please make sure you go to your scheduled dialysis sessions. Please return to the emergency room for worsening symptoms Diet: Renal Activity: Ad richie Followup: Charlotte Frank MD [COURTESY - CAN ADMIT] - 1-2 Weeks Time spent managing pt's care (in minutes): 55
[2019-03-24 15:35] VITALS: O2SAT 94
[2019-03-24] MEDS: SOD FERRIC GLUC COMPLX/SUCROSE 125 MG in NA CHLORIDE 0.9% 100 ML IV SCH (17:56)
[2019-03-24 17:59] VITALS: TEMP 97.7
[2019-03-24] MEDS: EPOETIN ALFA 4,000 UNIT/ML VIAL SQ SCH (18:15)
[2019-03-24 21:16] VITALS: BP 108/69
[2019-03-24] MEDS: ATORVASTATIN 20 MG TAB PO SCH (21:17)
--- NOTE | 2019-03-25 01:06 | PN ---
Date of Progress Note: 03/24/2019 This is a followup on this patient. Mrs. Haywood is a female, who comes to us with renal failure, had an emergency placement of a hemodialysis catheter. She is better right now, but the renal service a sked me to see we can replace that hemodialysis catheter. So, at sometimes, it is functioning during dialysis, delaying treatment on her case. So, we explained to her to the position of a hemodialysis catheter and new dialysis catheter for malfunctioning. She is comfortable with the right side. We are going to try to see we can still put it on the right side, change location a little bit. The ris k still the same, with benefits, alternatives, and risks fully explained include not limited to infec tion, bleeding, damage to adjacent structures, anesthesia complication, pulmonary emboli, pneumothor ax, hemothorax, mi, even . She also understands this may not relieve the symptoms, she might ne ed more than one surgical intervention. She has cardiac surgery. Anatomy changed on her midline inc ision there. So, we are going to try to stay on the right side, remove the hemodialysis, put a new o ne in. If we see that does not work in the future or which she has problems in the future, then we w ill encourage her to check with the Radiology Department, interventional radiologist as we do not hav e this institution to do a formal study of her veins. REY/HECTOR Voice ID: [id number] Report ID: [id number]
--- NOTE | 2019-03-27 22:51 | OP ---
Date of Procedure: 03/27/2019 Surgeon: Nabor Samuels MD Preoperative Diagnosis: End-stage renal disease. Postoperative Diagnosis: End-stage renal disease. Procedures: 1.Placement of a new hemodialysis HemoSplit cuff catheter. 2.Removal of an old previous hemodialysis catheter. 3.Interpretation of fluoroscopy. Anesthesia: General plus local. Indications: This is the case of a patient, Cheyanne Haywood, recently diagnosed with end-stage renal dis ease. The patient had an emergent placement of hemodialysis catheter about a little more than a week ago. The patient has been doing well recently. They are having some difficult time with the cathet er and that its position, and they asked for removal and placement of a new one since they cannot giv e dialysis properly. The patient is also saying a discomfort in that area and she wants to change. She has history of cardiac disease and has a midline incision with anatomy changes. She understands the risk the benefit of changing the catheter, placement of new hemodialysis catheter, removing the p revious one, which include, but not limited to infection, bleeding, damage to adjacent structures, an esthesia complication, NC, even . She also understands the risks of pneumothorax, hemothorax, P Es, breaking of the catheter, pericardiac tamponade, pericarditis. She understands still this is a t emporary catheter, needs to be placed or changed to a more permanent catheter if dialysis will contin ue. She signed a consent. Description Of Procedure: The patient was brought to the operating room, placed in supine position. Anesthesia was done without complication. The right chest and neck and left chest and neck were pre pped and draped in sterile fashion. The patient was placed in Trendelenburg position. A small incis ion was made in the right neck region. Previous catheter was found. Cuff was released. The cathete r was then split, hold in distal part. Guidewire was threaded through the distal part. The catheter was removed and a previous catheter was completely removed. Pressure was applied over the area. At that moment, we proceeded to tunnel a new catheter coming from the right chest to the right neck reg ion to meet new incision in the right upper neck. The catheter was threaded through a different tunn el. Introducer was placed through the guidewire under fluoroscopy guidance. The introducer sheath w as placed to that area. The guidewire was removed. The new catheter was placed through the introduc er sheath. Introducer sheath was peeled off. Then, this was done under fluoroscopy. The catheter l ooked nice and smooth. Excellent backflow and inflow. The catheter was secured in place with 2-3 ch romic and 3-0 nylon. The patient tolerated the procedure well. Previous tract was left to close by secondary intention. The patient tolerated the procedure well. The patient was sent to recovery in stable condition. Chest x-ray was ordered stat. REY/HECTOR Voice ID: [id number] Report ID: [id number]
== END 2019-03-24 21:39 | disposition home or self-care (01) | DRG 981 ==
LOC: ER 17:04 → ERHOLD 20:39 → 2ND 20:56
PROVIDERS: ADMIT Internal Medicine; ATTEND Family Medicine
PROC: B5181ZA Fluoroscopy of Superior Vena Cava using Low Osmolar Contrast, Guidance (ICD-10-PCS; 2019-03-18)
PROC: 5A1D70Z Performance of Urinary Filtration, Intermittent, Less than 6 Hours Per Day (ICD-10-PCS; 2019-03-18)
PROC: 02HV33Z Insertion of Infusion Device into Superior Vena Cava, Percutaneous Approach (ICD-10-PCS; principal; 2019-03-18 11:00)
PROC: 02PY03Z Removal of Infusion Device from Great Vessel, Open Approach (ICD-10-PCS; 2019-03-24)
PROC: 02HV33Z Insertion of Infusion Device into Superior Vena Cava, Percutaneous Approach (ICD-10-PCS; 2019-03-24)
PROC: B5181ZA Fluoroscopy of Superior Vena Cava using Low Osmolar Contrast, Guidance (ICD-10-PCS; 2019-03-24)
DX: N17.9 Acute kidney failure, unspecified (principal); J81.0 Acute pulmonary edema; I12.0 Hypertensive chronic kidney disease with stage 5 chronic kidney disease or end stage renal disease; T82.41XA Breakdown (mechanical) of vascular dialysis catheter, initial encounter; N18.6 End stage renal disease; E87.70 Fluid overload, unspecified; R06.03 Acute respiratory distress; R09.02 Hypoxemia; I25.10 Atherosclerotic heart disease of native coronary artery without angina pectoris; M32.9 Systemic lupus erythematosus, unspecified; D63.1 Anemia in chronic kidney disease; D69.6 Thrombocytopenia, unspecified; D50.9 Iron deficiency anemia, unspecified; E83.39 Other disorders of phosphorus metabolism; F32.9 Major depressive disorder, single episode, unspecified; E88.89 Other specified metabolic disorders; Z79.82 Long term (current) use of aspirin; Z95.2 Presence of prosthetic heart valve; Z95.1 Presence of aortocoronary bypass graft; Y83.8 Other surgical procedures as the cause of abnormal reaction of the patient, or of later complication, without mention of misadventure at the time of the procedure
CPT/HCPCS: 36415; 71045; 76000; 76705; 80048; 80076; 81003; 81015; 82607; 82728; 82746; 83540; 83690; 83735; 83880; 84100; 84466; 84484; 85025; 85610; 85730; 86317; 86704; 86705; 86706; 86803; 87340; 88300; 90935; 93005; 94760; 96365; 96367; 96374; 96375; 97116; 97162; 99285; C1752; J0690; J0885; J1644; J1940; J2250; J2370; J2405; J2704; J2916; J3010

== ENCOUNTER 2019-03-25 02:30 | Inpatient (IN) | payer OTHER ==
--- OUTSIDE RECORDS SUMMARY | 2019-03-25 02:34 | XMS REPORT | Clinical Summary ---
:1950 Author Organization [facility] Address [address] [place] [phone] Care Team Providers Name Role Phone Nghia [...] 0 Active eye as needed. Both eyes [id number] oil-vit Take 2 capsules 0 Active D3 [...] Only Transplant Chiquita Telles, ESRD (end stage independent living instructor disease) ([facility]) (Primary Dx) 11/23/2018 Telephone Transplant Eleni Hartley Appointment 11/23/2018 Telephone Transplant Eleni Hartley Appointment 11/18/2018 Documentation Transplant Zaid FransiscaJAY trejo 11/16/2018 Hospital Encounter Transplant Melchor Ornelas ESRD (end stage Osama, MD renal disease) Min Richardosn ([facility]) MD Javier 11/13/2018 Lab Lab Melchor Ornelas ESRD (end stage Osama, MD renal disease) ([facility]) (Primary Dx) 11/12/2018 Lab Lab Melchor Ornelas ESRD (end stage Osama, MD renal disease) ([facility]) 11/10/2018 Lab Lab Melchor Ornelas ESRD (end stage Osama, MD renal disease) ([facility]) 11/10/2018 Hospital Encounter Transplant Melchor Ornelas ESRD (end stage Osama, MD renal disease) Min iRchardson ([facility]) MD Javier 11/10/2018 Documentation Transplant Echo Powers Occult (09:20am Sp w/pt dtr Bertha & she will bring stool cards on Wednesday11/16/18. ) 11/09/2018 Hospital Encounter Radiology Podder, Hemangshu, ESRD (end stage MD renal disease) ([facility]) 11/09/2018 Hospital Encounter Radiology Podder, Hemangshu, ESRD (end stage MD renal disease) ([facility]) 11/09/2018 Hospital Encounter Transplant Podder, Hemangshu, ESRD (end stage MD renal disease) ([facility]) 11/09/2018 Hospital Encounter Transplant Min Richardson MD 11/09/2018 Hospital Encounter Transplant Min Richardson MD 11/09/2018 Hospital Encounter Transplant Min Richardson MD Guerrero, Alex 11/09/2018 Hospital Encounter Procedural Podder, Hemangshu, ESRD (end stage Cardiology MD renal disease) ([facility]) 10/31/2018 Documentation Transplant Heri, Consent Forms Rocio (Scanned Consent For Kidney Transplant Evaluation, Pre Txp Education & IWONA forms in Media. 10-27-2018) 10/31/2018 Telephone Transplant Eleni Hartley Appointment 10/27/2018 Hospital Encounter Transplant Melchor Ornelas ESRD (end stage MD Srinath renal disease) ([facility]) 10/27/2018 Hospital Encounter Transplant Lilly Pro, ESRD (end stage MD renal disease) ([facility]) (Primary Dx) 10/27/2018 Hospital Encounter Transplant Lilly Pro MD 10/27/2018 Hospital Encounter Transplant Lilly Pro MD 10/27/2018 Orders Only Transplant Nghia Cordova, ESRD (end stage independent living instructor disease) ([facility]) (Primary Dx) 10/12/2018 Documentation Transplant Ciera Espinal 09/21/2018 Telephone Transplant Naima Kim Pre-emptive Kidney M, KALA Patient after 03/24/2018 Social History Tobacco Use Types Packs/Day Years Used Date Never Smoker Smokeless Tobacco: Never Used Sex Assigned at Date Recorded Not on file Job Start Date Occupation Industry Not on file Not on file Not on file Travel History Travel Start Travel End No recent travel history available. Last Filed Vital Signs Vital Sign Reading Time Taken Blood Pressure 136/65 10/27/2018 7:33 AM ELECTRONICS TECHNICIAN APPRENTICE Pulse 64 10/27/2018 7:33 AM ELECTRONICS TECHNICIAN APPRENTICE Temperature 35.8 C (96.4 F) 10/27/2018 7:31 AM ELECTRONICS TECHNICIAN APPRENTICE Respiratory Rate 16 10/27/2018 7:33 AM ELECTRONICS TECHNICIAN APPRENTICE Oxygen Saturation 94% 10/27/2018 7:33 AM ELECTRONICS TECHNICIAN APPRENTICE Inhaled Oxygen Concentration - - Weight 79.8 kg (176 lb) 11/10/2018 3:15 PM ELECTRONICS TECHNICIAN APPRENTICE Height 167.6 cm (5' 6") 11/10/2018 3:15 PM ELECTRONICS TECHNICIAN APPRENTICE Body Mass Index 28.41 11/10/2018 3:15 PM ELECTRONICS TECHNICIAN APPRENTICE Plan of Treatment Health Maintenance Due Date [...] ESRD (end stage Results for this AM ELECTRONICS TECHNICIAN APPRENTICE renal disease) procedure are in ([facility]) the results section. OCCULT BLOOD, STOOL Routine 11/12/2018 10:00 ESRD (end stage Results for this AM ELECTRONICS TECHNICIAN APPRENTICE renal disease) procedure are in ([facility]) the results section. OCCULT BLOOD, STOOL Routine 11/10/2018 10:00 ESRD (end stage Results for this AM ELECTRONICS TECHNICIAN APPRENTICE renal disease) procedure are in ([facility]) the results section. RADHA TITER Routine 11/10/2018 8:12 Results for this AM ELECTRONICS TECHNICIAN APPRENTICE procedure are in the results section. C1Q CLASS 1 & 2 ANTIBODY Routine 11/10/2018 8:12 Results for this AM ELECTRONICS TECHNICIAN APPRENTICE procedure are in the results section. HLA AUTOLOGOUS Routine 11/10/2018 8:12 Results for this CROSSMATCH AM ELECTRONICS TECHNICIAN APPRENTICE procedure are in the results section. SINGLE ANTIGEN BEADS Routine 11/10/2018 8:12 Results for this AM ELECTRONICS TECHNICIAN APPRENTICE procedure are in the results section. LOW RESOLUTION FULL Routine 11/10/2018 8:12 Results for this TYPING BY SSO AM ELECTRONICS TECHNICIAN APPRENTICE procedure are in the results section. ESTIMATED GFR Routine 11/10/2018 8:12 Results for this AM ELECTRONICS TECHNICIAN APPRENTICE procedure are in the results section. DNA AB SCREEN Routine 11/10/2018 8:12 ESRD (end stage Results for this AM ELECTRONICS TECHNICIAN APPRENTICE renal disease) procedure are in ([facility]) the results section. CARDIOLIPIN ANTIBODIES Routine 11/10/2018 8:12 ESRD (end stage Results for this AM ELECTRONICS TECHNICIAN APPRENTICE renal disease) procedure are in ([facility]) the results section. C4 COMPLEMENT COMPONENT Routine 11/10/2018 8:12 ESRD (end stage Results for this AM ELECTRONICS TECHNICIAN APPRENTICE renal disease) procedure are in ([facility]) the results section. C3 COMPLEMENT COMPONENT Routine 11/10/2018 8:12 ESRD (end stage Results for this AM ELECTRONICS TECHNICIAN APPRENTICE renal disease) procedure are in ([facility]) the results section. C1Q COMPLEMENT COMPONENT Routine 11/10/2018 8:12 ESRD (end stage Results for this AM ELECTRONICS TECHNICIAN APPRENTICE renal disease) procedure are in ([facility]) the results section. HARTLEY ANTIBODY Routine 11/10/2018 8:12 ESRD (end stage Results for this AM ELECTRONICS TECHNICIAN APPRENTICE renal disease) procedure are in ([facility]) the results section. GLOMERULAR BASEMENT Routine 11/10/2018 8:12 ESRD (end stage Results for this MEMBRANE AB IGG (IFA) AM ELECTRONICS TECHNICIAN APPRENTICE renal disease) procedure are in ([facility]) the results section. RADHA Routine 11/10/2018 8:12 ESRD (end stage Results for this AM ELECTRONICS TECHNICIAN APPRENTICE renal disease) procedure are in ([facility]) the results section. ABORH - TRANSPLANT Routine 11/10/2018 8:12 ESRD (end stage Results for this AM ELECTRONICS TECHNICIAN APPRENTICE renal disease) procedure are in ([facility]) the results section. PARATHYROID HORMONE Routine 11/10/2018 8:12 ESRD (end stage Results for this AM ELECTRONICS TECHNICIAN APPRENTICE renal disease) procedure are in ([facility]) the results section. HSV TYPE 1/2 COMBINED Routine 11/10/2018 8:12 ESRD (end stage Results for this AB, IGM AM ELECTRONICS TECHNICIAN APPRENTICE renal disease) procedure are in ([facility]) the results section. HSV 1 & 2 GLYCOPROTEIN G Routine 11/10/2018 8:12 ESRD (end stage Results for this AB, IGG AM ELECTRONICS TECHNICIAN APPRENTICE renal disease) procedure are in ([facility]) the results section. HERPES SIMPLEX VIRUS BY Routine 11/10/2018 8:12 ESRD (end stage Results for this PCR AM ELECTRONICS TECHNICIAN APPRENTICE renal disease) procedure are in ([facility]) the results section. LARUEEN-WEBSTER VIRUS Routine 11/10/2018 8:12 ESRD (end stage Results for this ANTIBODY TEST AM ELECTRONICS TECHNICIAN APPRENTICE renal disease) procedure are in ([facility]) the results section. CYTOMEGALOVIRUS AB, IGM Routine 11/10/2018 8:12 ESRD (end stage Results for this AM ELECTRONICS TECHNICIAN APPRENTICE renal disease) procedure are in ([facility]) the results section. CYTOMEGALOVIRUS AB, IGG Routine 11/10/2018 8:12 ESRD (end stage Results for this AM ELECTRONICS TECHNICIAN APPRENTICE renal disease) procedure are in ([facility]) the results section. HEMOGLOBIN A1C Routine 11/10/2018 8:12 ESRD (end stage Results for this AM ELECTRONICS TECHNICIAN APPRENTICE renal disease) procedure are in ([facility]) the results section. LDH Routine 11/10/2018 8:12 ESRD (end stage Results for this AM ELECTRONICS TECHNICIAN APPRENTICE renal disease) procedure are in ([facility]) the results section. PHOSPHORUS LEVEL Routine 11/10/2018 8:12 ESRD (end stage Results for this AM ELECTRONICS TECHNICIAN APPRENTICE renal disease) procedure are in ([facility]) the results section. CREATININE LEVEL Routine 11/10/2018 8:12 ESRD (end stage Results for this AM ELECTRONICS TECHNICIAN APPRENTICE renal disease) procedure are in ([facility]) the results section. FASTING GLUCOSE LEVEL Routine 11/10/2018 8:12 ESRD (end stage Results for this AM ELECTRONICS TECHNICIAN APPRENTICE renal disease) procedure are in ([facility]) the results section. TRIGLYCERIDES Routine 11/10/2018 8:12 ESRD (end stage Results for this AM ELECTRONICS TECHNICIAN APPRENTICE renal disease) procedure are in ([facility]) the results section. CHOLESTEROL Routine 11/10/2018 8:12 ESRD (end stage Results for this AM ELECTRONICS TECHNICIAN APPRENTICE renal disease) procedure are in ([facility]) the results section. US RENAL Routine 11/09/2018 12:57 ESRD (end stage Results for this PM ELECTRONICS TECHNICIAN APPRENTICE renal disease) procedure are in ([facility]) the results section. XR CHEST 2 VW Routine 11/09/2018 12:28 ESRD (end stage Results for this PM ELECTRONICS TECHNICIAN APPRENTICE renal disease) procedure are in ([facility]) the results section. ECHOCARDIOGRAM 2D Routine 11/09/2018 9:00 ESRD (end stage Results for this COMPLETE W MMODE AM ELECTRONICS TECHNICIAN APPRENTICE renal disease) procedure are in SPECTRAL COLOR DOPPLER ([facility]) the results (81156) section. ECG 12-LEAD Routine 11/09/2018 7:42 ESRD (end stage Results for this AM ELECTRONICS TECHNICIAN APPRENTICE renal disease) procedure are in ([facility]) the results section. ESTIMATED GFR Routine 10/27/2018 11:15 Results for this AM ELECTRONICS TECHNICIAN APPRENTICE procedure are in the results section. SERUM ELECTROPHORESIS Routine 10/27/2018 11:15 ESRD (end stage Results for this AM ELECTRONICS TECHNICIAN APPRENTICE renal disease) procedure are in ([facility]) the results section. C-PEPTIDE Routine 10/27/2018 11:15 ESRD (end stage Results for this AM ELECTRONICS TECHNICIAN APPRENTICE renal disease) procedure are in ([facility]) the results section. TB T-SPOT Routine 10/27/2018 11:15 ESRD (end stage Results for this AM ELECTRONICS TECHNICIAN APPRENTICE renal disease) procedure are in ([facility]) the results section. NICOTINE AND Routine 10/27/2018 11:15 ESRD (end stage Results for this METABOLITES, SERUM AM ELECTRONICS TECHNICIAN APPRENTICE renal disease) procedure are in ([facility]) the results section. URINE DRUGS OF ABUSE Routine 10/27/2018 11:15 ESRD (end stage Results for this SCREEN AM ELECTRONICS TECHNICIAN APPRENTICE renal disease) procedure are in ([facility]) the results section. ABORH - TRANSPLANT Routine 10/27/2018 11:15 ESRD (end stage Results for this AM ELECTRONICS TECHNICIAN APPRENTICE renal disease) procedure are in ([facility]) the results section. PARTIAL THROMBOPLASTIN Routine 10/27/2018 11:15 ESRD (end stage Results for this TIME (PTT) AM ELECTRONICS TECHNICIAN APPRENTICE renal disease) procedure are in ([facility]) the results section. PROTHROMBIN TIME WITH Routine 10/27/2018 11:15 ESRD (end stage Results for this INR AM ELECTRONICS TECHNICIAN APPRENTICE renal disease) procedure are in (HCC) the results section. HC COMPLETE BLD COUNT Routine 10/27/2018 11:15 ESRD (end stage Results for this W/AUTO DIFF AM ELECTRONICS TECHNICIAN APPRENTICE renal disease) procedure are in (HCC) the results section. SYPHILIS TREPONEMAL IGG Routine 10/27/2018 11:15 ESRD (end stage Results for this AM ELECTRONICS TECHNICIAN APPRENTICE renal disease) procedure are in (HCC) the results section. HEPATITIS C ANTIBODY Routine 10/27/2018 11:15 ESRD (end stage Results for this AM ELECTRONICS TECHNICIAN APPRENTICE renal disease) procedure are in (HCC) the results section. HEPATITIS B SURFACE AB, Routine 10/27/2018 11:15 ESRD (end stage Results for this QUANTITATIVE AM ELECTRONICS TECHNICIAN APPRENTICE renal disease) procedure are in ([facility]) the results section. HEPATITIS B SURFACE Routine 10/27/2018 11:15 ESRD (end stage Results for this ANTIGEN AM ELECTRONICS TECHNICIAN APPRENTICE renal disease) procedure are in ([facility]) the results section. HEPATITIS B SURFACE Routine 10/27/2018 11:15 ESRD (end stage Results for this ANTIBODY AM ELECTRONICS TECHNICIAN APPRENTICE renal disease) procedure are in ([facility]) the results section. HEPATITIS B CORE Routine 10/27/2018 11:15 ESRD (end stage Results for this ANTIBODY TOTAL AM ELECTRONICS TECHNICIAN APPRENTICE renal disease) procedure are in ([facility]) the results section. HEPATITIS A ANTIBODY Routine 10/27/2018 11:15 ESRD (end stage Results for this TOTAL AM ELECTRONICS TECHNICIAN APPRENTICE renal disease) procedure are in ([facility]) the results section. HIV AG/AB COMBINATION Routine 10/27/2018 11:15 ESRD (end stage Results for this AM ELECTRONICS TECHNICIAN APPRENTICE renal disease) procedure are in ([facility]) the results section. URINALYSIS SCREEN AND Routine 10/27/2018 11:15 ESRD (end stage Results for this MICROSCOPY, WITH REFLEX AM ELECTRONICS TECHNICIAN APPRENTICE renal disease) procedure are in TO CULTURE ([facility]) the results section. COMPREHENSIVE METABOLIC Routine 10/27/2018 11:15 ESRD (end stage Results for this PANEL AM ELECTRONICS TECHNICIAN APPRENTICE renal disease) procedure are in ([facility]) the results section. URINE CULTURE Routine 10/27/2018 11:15 Results for this AM ELECTRONICS TECHNICIAN APPRENTICE procedure are in the results section. after 03/24/2018 Results Occult blood, stool (11/13/2018 11:05 AM ELECTRONICS TECHNICIAN APPRENTICE)Only the most recent of3 resultswithin the time period is included. Occult blood, stool Negative for occult blood. [facility] Comment: Specimen Information Specimen Source: Stool Specimen Site: Nonpreserved Specimen Stool - Nonpreserved Performing Organization Address City/[facility]/Zipcode Phone Number [facility] DEPARTMENT OF PATHOLOGY AND [address] [place] [phone] Hartley antibody (11/10/2018 8:12 AM ELECTRONICS TECHNICIAN APPRENTICE) Hartley antibody <0.2 0.0 - 0.9 [facility] Hartley antibody interp Negative [facility] Comment: HOSPITAL Anti-Hartley antibodies occurs in 30-35% of systemic lupus erythematosus (SLE) cases, but is very specific for SLE. It may also present in mixed connective-tissue disease (MCTD). Specimen Serum Performing Organization Address City/[facility] Phone Number [facility] DEPARTMENT OF PATHOLOGY AND [address] [place] [phone] Low resolution full typing by SSO (11/10/2018 8:12 AM ELECTRONICS TECHNICIAN APPRENTICE) [facility] DEPARTMENT OF PATHOLOGY AND GENOMIC MEDICINE Low resolution full typing See link below for PDF [facility] DEPARTMENT OF by SSO Lab Report PATHOLOGY AND GENOMIC MEDICINE Performing Organization Address [facility] Phone Number [facility] DEPARTMENT OF PATHOLOGY AND [address] [place] [address] C1Q class 1 & 2 antibody (11/10/2018 8:12 AM ELECTRONICS TECHNICIAN APPRENTICE) [facility] DEPARTMENT OF PATHOLOGY AND GENOMIC MEDICINE C1Q class 1 & 2 antibody See link below for PDF [facility] DEPARTMENT OF PATHOLOGY Lab Report AND GENOMIC MEDICINE Performing Organization Address City/[facility] Phone Number [facility] DEPARTMENT OF PATHOLOGY AND [address] [place] [address] Estimated GFR (11/10/2018 8:12 AM ELECTRONICS TECHNICIAN APPRENTICE)Only the most recent of2 resultswithin the time period is included. Estimated GFR 9 (A) mL/min/1.73 m2 [facility] Comment: HOSPITAL CatergoryUnitsInterpretation G1 >=90 Normal or high G2 60-89Mildly decreased [id number] to moderately decreased X2g44-49Hnkuyetatd to severely decreased G4 15-29Severely decreased G5 <15Kidney failure The eGFR was calculated using the Chronic Kidney Disease Epidemiology Collaboration (CKD-EPI) equation. Interpretation is based on recommendations of the National Kidney Foundation-Kidney Disease Outcomes Quality Initiative (NKF-KDOQI) published in 2014. Specimen Plasma specimen Performing Organization Address City/State/[facility] Phone Number [facility] DEPARTMENT OF PATHOLOGY AND [address] [place] [address] HSV 1 & 2 glycoprotein G Ab, IgG (11/10/2018 8:12 AM ELECTRONICS TECHNICIAN APPRENTICE) HSV 1 glycoprotein G Ab, Positive (A) Negative [facility] IgG Comment: HOSPITAL Positive results may indicate current or past HSV infection. For acute illness, viral PCR and IgM testing are recommended. Individuals infected with HSV may not exhibit detectable antibodies in cases of early infection. HSV 2 glycoprotein G Ab, NegativeComment: Negative [facility] IgG Negative: No IgG HOSPITAL antibodies to HSV2 detected. Specimen Serum Performing Organization Address [facility] [place] Phone Number [facility] DEPARTMENT OF PATHOLOGY AND [address] [place] [phone] Laureen-Webster virus antibody test (11/10/2018 8:12 AM ELECTRONICS TECHNICIAN APPRENTICE) EBV Ab to viral capsid Ag, Positive (A) Negative [facility] IgG [facility] EBV Ab to viral capsid Ag, Negative Negative [facility] IgM [facility] EBV Ab to nuclear Ag, IgG Positive (A) Negative [facility] EBV Ab to early (D) Ag, IgG Positive (A) Negative [facility] Laureen-Webster virus antibody SEE COMMENT [facility] interpretation Comment: HOSPITAL Infection Status: Results may suggest EBV reactivation, although a recent primary EBV infection is not excluded. Specimen Serum Performing Organization Address City/[facility] Phone Number [facility] DEPARTMENT OF PATHOLOGY AND [address] [place] [address] Single antigen beads (11/10/2018 8:12 AM ELECTRONICS TECHNICIAN APPRENTICE) [facility] DEPARTMENT OF PATHOLOGY AND [facility] MEDICINE Single antigen beads See link below for PDF [facility] DEPARTMENT OF PATHOLOGY Lab Report AND GENOMIC MEDICINE Performing Organization Address City/[facility]/Zipcode Phone Number [facility] DEPARTMENT OF PATHOLOGY AND [address] [place] [address] HSV type 1/2 combined Ab, IgM (11/10/2018 8:12 AM ELECTRONICS TECHNICIAN APPRENTICE) HSV 1/2 combined Ab, IgM 0.60 <=0.89 IV [facility] Comment: INTERPRETIVE INFORMATION: Herpes Simplex [...] than 12 months post- infection. Performed by [employer], [address] [place] [phone] www.[employer], Camilo Braun MD - Lab. Director Specimen Serum Performing Organization Address [facility] Cent[facility]ode Phone Number [facility] [address] [place] [address] [facility] [address] [place] [address] HLA autologous crossmatch, AHG (11/10/2018 8:12 AM ELECTRONICS TECHNICIAN APPRENTICE) [facility] DEPARTMENT OF PATHOLOGY AND GENOMIC MEDICINE HLA autologous crossmatch See link below for PDF [facility] DEPARTMENT OF Lab Report PATHOLOGY AND GENOMIC MEDICINE Performing Organization Address City/[facility]/Zipcode Phone Number [facility] DEPARTMENT OF PATHOLOGY AND [address] [place] [address] Herpes simplex virus by PCR (11/10/2018 8:12 AM ELECTRONICS TECHNICIAN APPRENTICE) Herpes virus, PCR Not-Detected Not-Detected [facility] Herpes virus, PCR See link below for PDF Lab [facility] ReportComment: Performing Organization Address City/State/Zipcode Phone Number [facility] DEPARTMENT OF PATHOLOGY AND [address] [place] [address] Glomerular basement membrane Ab IgG (IFA) (11/10/2018 8:12 AM ELECTRONICS TECHNICIAN APPRENTICE) Glomerular basement Negative Negative [facility] [...] biopsy. Test developed and characteristics determined by [facility]. See Compliance Statement D: [employer]/ Performed by [employer], [address] [place] [phone] www.[employer], Camilo Braun MD - Lab. Director Specimen Serum Performing Organization Address City/[facility] Phone Number [facility] [address] [place] [address] [facility] [address] [place] [address] DNA Ab screen (11/10/2018 8:12 AM ELECTRONICS TECHNICIAN APPRENTICE) DNA Ab screen Not Detected Not-Detected [facility] Specimen Blood Performing Organization Address City/[facility] Phone Number [facility] DEPARTMENT OF PATHOLOGY AND [address] [place] [phone] C1q complement component (11/10/2018 8:12 AM ELECTRONICS TECHNICIAN APPRENTICE) C1q complement 215 109 - 242 ug/mL [facility] Comment: Performed by [facility], [address] [place] [phone] www.[employer], Camilo Braun MD - Lab. Director Specimen Blood Performing Organization Address City/[facility] Phone Number [facility] [address] [place] [address] [facility] [address] [place] [address] Cytomegalovirus Ab, IgM (11/10/2018 8:12 AM ELECTRONICS TECHNICIAN APPRENTICE) Cytomegalovirus Ab, IgM Negative Negative [facility] Specimen Serum Performing Organization Address City/[facility] Phone Number [facility] DEPARTMENT OF PATHOLOGY AND [address] [place] [phone] RADHA titer (11/10/2018 8:12 AM ELECTRONICS TECHNICIAN APPRENTICE) RADHA titer 1:320 (A) Not-Detected [facility] RADHA pattern Atypical speckled (A) Not-Detected [facility] Specimen Blood Performing Organization Address City/[facility] Phone Number [facility] DEPARTMENT OF PATHOLOGY AND [address] [place] [phone] [address] ABORh - transplant (11/10/2018 8:12 AM ELECTRONICS TECHNICIAN APPRENTICE)Only the most recent of2 resultswithin the time period is included. ABO grouping O [facility] Rh type POS [facility] Specimen Blood Performing Organization Address City/[facility] Phone Number [facility] DEPARTMENT OF PATHOLOGY AND [address] [place] [phone] [address] Cytomegalovirus Ab, IgG (11/10/2018 8:12 AM ELECTRONICS TECHNICIAN APPRENTICE) Cytomegalovirus Ab, IgG Positive (A) Negative [facility] Comment: Positive; IgG antibody to CMV detected which may indicate exposure to CMV infection. Specimen Serum Performing Organization Address [facility] Phone Number [facility] DEPARTMENT OF PATHOLOGY AND [address] [place] [phone] [address] Cardiolipin antibodies (11/10/2018 8:12 AM ELECTRONICS TECHNICIAN APPRENTICE) Cardiolipin IgG 1 0 - 14 GPL [facility] Comment: Negative=<15 GPL Indeterminate=15-20 GPL Positive=>20 GPL Cardiolipin IgM 4 0 - 12 MPL [facility] Comment: Negative=<13 MPL Indeterminate=13-20 MPL Positive=>20 MPL Specimen Blood Performing Organization Address City/[facility]/Zipcode Phone Number [facility] DEPARTMENT OF PATHOLOGY AND [address] [place] [phone] [address] C3 complement component (11/10/2018 8:12 AM ELECTRONICS TECHNICIAN APPRENTICE) C3 complement 92 90 - 180 mg/dL [facility] Specimen Plasma specimen Performing Organization Address City/[facility] Phone Number [facility] DEPARTMENT OF PATHOLOGY AND [address] [place] [phone] [address] C4 complement component (11/10/2018 8:12 AM ELECTRONICS TECHNICIAN APPRENTICE) C4 complement 40 10 - 40 mg/dL [facility] Specimen Plasma specimen Performing Organization Address City/[facility] Phone Number [facility] DEPARTMENT OF PATHOLOGY AND [address] [place] [phone] [address] RADHA (11/10/2018 8:12 AM ELECTRONICS TECHNICIAN APPRENTICE) RADHA screen Positive (A) Negative [facility] Comment: Cytoplasmic staining was observed. Fluorescence in the cytoplasm may be seen in patients with polymyositis and dermatomyositis, primary biliary cirrhosis , scleroderma and systemic sclerosis, systemic lupus erythematosus, and autoimmune hepatitis. Clinical correlation is recommended Specimen Blood Performing Organization Address [facility] Phone Number [facility] DEPARTMENT OF PATHOLOGY AND [address] [place] [phone] [place] [address] Triglycerides (11/10/2018 8:12 AM ELECTRONICS TECHNICIAN APPRENTICE) Triglycerides 119 <150 mg/dL [facility] Specimen Plasma specimen Performing Organization Address City/[facility] Phone Number [facility] DEPARTMENT OF PATHOLOGY AND [address] [place] [phone] [place] [address] Phosphorus level (11/10/2018 8:12 AM ELECTRONICS TECHNICIAN APPRENTICE) Phosphorus 4.6 (H) 2.4 - 4.5 mg/dL [facility] Specimen Plasma specimen Performing Organization Address City/[facility] Phone Number [facility] DEPARTMENT OF PATHOLOGY AND [address] [place] [phone] [address] Parathyroid hormone (11/10/2018 8:12 AM ELECTRONICS TECHNICIAN APPRENTICE) PTH 339 (H) 15 - 65 pg/mL [facility] Specimen Blood Performing Organization Address [facility] Phone Number [facility] DEPARTMENT OF PATHOLOGY AND [address] [place] [phone] [address] LDH (11/10/2018 8:12 AM ELECTRONICS TECHNICIAN APPRENTICE) LDH 334 (H) 87 - 225 U/L [facility] Specimen Plasma specimen Performing Organization Address City/[facility] Phone Number [facility] DEPARTMENT OF PATHOLOGY AND [address] [place] [address] Hemoglobin A1c (11/10/2018 8:12 AM ELECTRONICS TECHNICIAN APPRENTICE) Hemoglobin A1C 5.5 4.0 - 5.6 % [facility] Comment: HbA1c cutoffs for diagnosing diabetes: 4.0% - 5.6%=normal 5.7% - 6.4%=increased risk for diabetes (prediabetes) >=6.5%=diabetes Goals for glycemic control (ADA 2016) < 7.0%Target for non adults with diabetes. More or less stringent targets may be appropriate for individual patients. <7.5% Target for Children and adolescents with type 1 diabetes. Specimen Blood Performing Organization Address [facility] Phone Number [facility] DEPARTMENT OF PATHOLOGY AND [address] [place] [address] Fasting glucose level (11/10/2018 8:12 AM ELECTRONICS TECHNICIAN APPRENTICE) Glucose, fasting 101 (H) 65 - 99 mg/dL [facility] Specimen Blood Performing Organization Address [facility] [place] Phone Number [facility] DEPARTMENT OF PATHOLOGY AND [address] [place] [address] Creatinine level (11/10/2018 8:12 AM ELECTRONICS TECHNICIAN APPRENTICE) Creatinine 4.75 (H) 0.50 - 0.90 mg/dL [facility] Specimen Plasma specimen Performing Organization Address City/[facility] Phone Number [facility] DEPARTMENT OF PATHOLOGY AND [address] [place] [address] Cholesterol (11/10/2018 8:12 AM ELECTRONICS TECHNICIAN APPRENTICE) Cholesterol 142 <200 mg/dL [facility] Specimen Plasma specimen Performing Organization Address City/[facility] Phone Number [facility] DEPARTMENT OF PATHOLOGY AND [address] [place], [place] [address] [place] [address] US Renal (11/09/2018 12:57 PM ELECTRONICS TECHNICIAN APPRENTICE) Narrative Performed At EXAMINATION:US RENAL RADIANT CLINICAL [...] findings and agree with the final report. [id number] Procedure Note Hm Interface, Radiology Results Incoming - 11/09/2018 4:53 PM ELECTRONICS TECHNICIAN APPRENTICE EXAMINATION: US RENAL CLINICAL HISTORY: N18.6 End [...] findings and agree with the final report. [id number] Performing Organization Address [facility]/[employer] Phone Number [facility] [address] [place] [address] XR Chest 2 Vw (11/09/2018 12:28 PM ELECTRONICS TECHNICIAN APPRENTICE) Narrative Performed At EXAMINATION:XR CHEST [address] [facility]ICAL [facility]: N18.6 End stage renal [...] pneumothorax noted. Visualized osseous structures are intact. [id number] Procedure Note Interface, Radiology Results Incoming - 11/09/2018 12:50 PM ELECTRONICS TECHNICIAN APPRENTICE EXAMINATION: XR CHEST 2 VW CLINICAL HISTORY: [...] pneumothorax noted. Visualized osseous structures are intact. [facility]-[id number] Performing Organization Address [facility] [place] Phone Number [facility] [address] [place] [address] Echocardiogram complete w contrast and 3D if needed (11/09/2018 9:00 AM ELECTRONICS TECHNICIAN APPRENTICE) Narrative Performed At [facility] Echocardiography Report [address] [place] [address] Pat.Name:DMITRIY SIEGEL [facility].ID:[id number] .Date: 11/09/2018Refer.MD:LILLY PRO MD Exam Time: 7:57:00 AMStudy Type:Routine Echo Height:66inWeight: 176lb BSA: 1.9 z6KHQBnq:1950,68Y Sex: FEMALEBP:117/83 HR:66 bpm Sonogrphr: Clarisse Costa RDCS, RVLivan Pat. Stat.:OutpatientRoom:[facility] 26 Study Status:Final Echo Event ID:[id number] Order ID:[id number] Reason for Study:Renal Transplant Evaluation History / [...] Bioprosthetic aortic valve. Estimated mean aortic valve uobouyjh11 mmHg. Normal prosthetic valve velocity and gradient.Surgical [...] PA systolic pressure. MEASUREMENTS: 2D Parasternal [place] LVOT 2 cmLA Ds4.6 cm LVIDd4.9 cmIndex2.6 cm/m Ao An1.9 cm LVIDs3.4 cmAo Rtd 2.8 cm Index1.5 cm/m LV%fs 30.6 % LV Envy924.4 g(87-129) IVSd 1.2 cmLVM Wmtja482.2 g/m2 LVPWd1 cmRWT0.6 LA Sng Plane LA Area 24 cm2(8.8-23.4) LA Vol73.2 ml Index38.5 ml/m LA LngAx 6.5 cm DOPPLER AV For Flow/SILVER AV pkVel 278.8 cm/s (100-170) AV AC/ET 0.3 AV mnVel 196.1 cm/Hayden TVI61.1 cm AV pkPG 31.1 mmHgAVpkAcRt 8739.5 cm/s2 AV Mean G 18.7 mmHgAV FfXb379.3 cm/s2 AV AC104 msec (83-118) AV Area1.1 cm2(3-5) AV ET311 msec LVOT For Flow LVOT Area3.1 cm2 LVOT SV 65.6 ml LVOTpkVel 94.4 cm/sHR59.3 bpm LVOTpkPG 3.6 mmHgLVOT CO3.9 l/min LVOTmnPG 1.9 mmHgLVOT CI2 l/m/m2 LVOT TVI20.9 cm Signed 11/09/2018 09:34 AM Ash Jeong MD Procedure Note Interface, Radiology Results In - 11/09/2018 9:34 AM [facility] Echocardiography Report [address] [place] [address] Pat.Name: DMITRIY SIEGEL Pat.ID: [id number] .Date: 11/09/2018 Refer.MD: LILLY PRO MD Exam Time: 7:57:00 AM Study Type:Routine Echo Height: 66in Weight: 176lb BSA: 1.9 m2 Age: 13 1950,68Y Sex: FEMALE BP: 117/83 HR: 66 bpm Sonogrphr: Clarisse Costa RDCS, RVT Pat. Stat.:Outpatient Room: [facility] Study Status:Final Echo Event ID:[id number] Order ID: [id number] Reason for Study:Renal Transplant Evaluation History / [...] PA systolic pressure. MEASUREMENTS: 2D Parasternal [place] LVOT 2 cm LA Ds 4.6 cm [...] AM Ash Jeong MD Performing Organization Address City/[facility] [place] Phone Number [facility] [address] [place] [address] ECG 12 lead (11/09/2018 7:42 AM ELECTRONICS TECHNICIAN APPRENTICE) Ventricular rate 59 [facility]USE Atrial rate 59 [facility] LA interval 188 [facility] QRSD interval 120 [facility] QT interval 512 [facility] M[facility] QTC interval 506 [facility]USE P axis 1 65 [facility] MUSE QRS axis 1 -26 [facility] MUSE T wave axis 100 [facility] EKG impression Sinus bradycardia-Left ventricular [facility] MUSE hypertrophy with QRS widening and repolarization abnormality-Abnormal ECG-No previous ECGs available- Narrative Performed At Performing Organization Address [facility] [place] Phone Number [facility] MUSE [address] [place] [address] Syphilis treponemal IgG (10/27/2018 11:15 AM ELECTRONICS TECHNICIAN APPRENTICE) Syphilis treponemal IgG Non-reactiveComment: Non-reactive [facility] Non-reactive: No HOSPITAL serological evidence of Syphilis infection Specimen Serum Performing Organization Address City/[facility]/Zipcode Phone Number [facility] DEPARTMENT OF PATHOLOGY AND [address] [place] [phone] [address] Urinalysis screen and microscopy, with reflex to culture (10/27/2018 11:15 AM ELECTRONICS TECHNICIAN APPRENTICE) Specimen site Clean catch [facility] Color, UA Straw [facility] Appearance, UA Clear [facility] Specific gravity, UA 1.011 1.001 - 1.035 [facility] pH, UA 7.0 5.0 - 8.5 [facility] Protein, UA 3+ (A) Negative [facility] Glucose, UA 1+ (A) Negative [facility] Ketones, UA Negative Negative [facility] Bilirubin, UA Negative Negative [facility] Blood, UA Negative Negative [facility] Nitrite, UA Negative Negative [facility] Urobilinogen, UA <2.0 <2.0 [facility] Leukocyte esterase, UA Negative Negative [facility] Epithelial cells, UA <1 /HPF [facility] WBC, UA None seen 0 - 4 /HPF [facility] RBC, UA <1 0 - 5 /HPF [facility] Bacteria, UA Few None seen [facility] Yeast, UA None seen [facility] Yeast with pseudohyphae, UA None seen [facility] Specimen Urine Performing Organization Address City/[facility]/Zipcode Phone Number [facility] DEPARTMENT OF PATHOLOGY AND [address] [place] [phone] [address] HIV Ag/Ab combination (10/27/2018 11:15 AM ELECTRONICS TECHNICIAN APPRENTICE) HIV Ag/Ab combination Non-reactive Non-reactive [facility] Specimen Blood Performing Organization Address City/[facility]/Zipcode Phone Number [facility] DEPARTMENT OF PATHOLOGY AND [address] [place] [phone] [address] TB T-SPOT (10/27/2018 11:15 AM ELECTRONICS TECHNICIAN APPRENTICE) TB T-SPOT SEE NOTE TMHRI - GRAVISS [...] FOR USE WITH T=SPOT.TB TEST. Performed by: [facility] Molecular Tuberculosis Laboratory [facility] ([id number]) [place] [address] Specimen Blood Performing Organization Address City/[facility] Phone Number [facility] DEPARTMENT OF PATHOLOGY AND [address] [place] [address] REF LAB Nicotine and metabolites, serum (10/27/2018 11:15 AM ELECTRONICS TECHNICIAN APPRENTICE) Nicotine <2.0 0.0 - 2.0 ng/mL [facility] Cotinine <2.0 0.0 - 2.0 ng/mL [facility] 7-IR-txieuzmu <5.0 0.0 - 5.0 ng/mL [facility] Comment: HOSPITAL This test was developed and its performance characteristics determined by the Department of Pathology and Genomic Medicine, [facility]. Serum nicotine and its metabolites cotinine and 5-JS-khlvmnsl are tested by HPLC tandem mass spectrometry. It has not been cleared or approved by FDA. The laboratory is regulated under CLIA as qualified to perform high-complexity testing. This test is used for clinical purposes. It should not be regarded as investigational or for research. Specimen Blood Performing Organization Address City/[facility]/Zipcode Phone Number [facility] DEPARTMENT OF PATHOLOGY AND [address] [place] [address] Hepatitis B surface Ab, quantitative (10/27/2018 11:15 AM ELECTRONICS TECHNICIAN APPRENTICE) Hepatitis B surface Ab <3.10 IU/L [facility] Comment: The anti-HBs is less [...] Cellular and Tissue-Based Products (HCT/P). Performed by [facility], [address] [place] [phone] [email or web address], Camilo Braun MD - Lab. Director Specimen Serum Performing Organization Address [facility] Phone Number [facility] [address] [place] [address] [facility] [address] [place] [address] Hepatitis C antibody (10/27/2018 11:15 AM ELECTRONICS TECHNICIAN APPRENTICE) Hepatitis C Ab Non-reactive Non-reactive [facility] Specimen Blood Performing Organization Address [facility] Phone Number [facility] DEPARTMENT OF PATHOLOGY AND [address] [place] [address] Hepatitis A antibody total (10/27/2018 11:15 AM ELECTRONICS TECHNICIAN APPRENTICE) Hepatitis A total Ab Non-reactive Non-reactive [facility] Specimen Blood Performing Organization Address [facility] Phone Number [facility] DEPARTMENT OF PATHOLOGY AND [address] [place] [address] Hepatitis B core antibody total (10/27/2018 11:15 AM ELECTRONICS TECHNICIAN APPRENTICE) Hepatitis B core total Ab Non-reactive Non-reactive [facility] Specimen Blood Performing Organization Address City/[facility] Phone Number [facility] DEPARTMENT OF PATHOLOGY AND [address] [place] [phone] [place] [address] C-peptide (10/27/2018 11:15 AM ELECTRONICS TECHNICIAN APPRENTICE) C-peptide 8.5 (H) 1.1 - 4.4 ng/mL [facility] Specimen Plasma specimen Performing Organization Address [facility] Phone Number [facility] DEPARTMENT OF PATHOLOGY AND [address] [place] [phone] [address] Urine drugs of abuse screen (10/27/2018 11:15 AM ELECTRONICS TECHNICIAN APPRENTICE) Amphetamine screen, urine Negative [facility] Barbiturate screen, urine Negative [facility] Benzodiazepine screen, Negative [facility] Cannabinoid screen, urine Negative [facility] Cocaine screen, urine Negative [facility] Methadone metabolite Negative [facility] (EDDP), urine [facility] Opiates screen, urine Negative [facility] Oxycodone screen, urine Negative [facility] Phencyclidine screen, urine Negative [facility] Tricyclic screen, urine Negative [facility] Comment: HOSPITAL Drug screen minimum concentration of detectability Hsflmrvhfqxv6739 ng/mL Barbiturates 200 ng/mL Sqtnpayvxvykpbe323 ng/mL Dwjcimc572 ng/mL Memsyyfwp135 ng/mL Lpnvbfx328 ng/mL Ffvirdksd128 ng/mL Phencyclidine 25 ng/mL Grnqggxcbyde71 ng/mL Tzznqwpyvd3299 ng/mL Negative test results indicates presumptive evidence of lack of clinically significant drug concentration in this urine specimen. Positive test results are presumptive evidence of clinically significant drug concentration in this urine specimen. Testing performed for medical purposes only. Specimen Urine Performing Organization Address City/[facility] Phone Number [facility] DEPARTMENT OF PATHOLOGY AND [address] [place] [phone] [address] Hepatitis B surface antibody (10/27/2018 11:15 AM ELECTRONICS TECHNICIAN APPRENTICE) Hepatitis B surface Ab Non-reactive Non-reactive [facility] Specimen Blood Performing Organization Address City/[facility]/Zipcode Phone Number [facility] DEPARTMENT OF PATHOLOGY AND [address] [place] [address] [place] [address] [place] [address] Hepatitis B surface antigen (10/27/2018 11:15 AM ELECTRONICS TECHNICIAN APPRENTICE) Hepatitis B surface Ag Non-reactive Non-reactive [facility] Specimen Blood Performing Organization Address City/State/Zipcode Phone Number [facility] DEPARTMENT OF PATHOLOGY AND [address] [place] [address] [address] Partial thromboplastin time, activated (10/27/2018 11:15 AM ELECTRONICS TECHNICIAN APPRENTICE) PTT 30.7 23.0 - 36.0 sec [facility] Comment: PTT therapeutic range for unfractionated heparin is 61.0-112.0 seconds which corresponds to Anti-Xa 0.3-0.7 U/ml. Specimen Blood Performing Organization Address City/[facility] Phone Number [facility] DEPARTMENT OF PATHOLOGY AND [address] [place] [phone] [place] [phone] Prothrombin time with INR (10/27/2018 11:15 AM ELECTRONICS TECHNICIAN APPRENTICE) Prothrombin time 14.1 11.5 - 14.5 sec [facility] INR 1.1 [facility] Comment: HOSPITAL The International Normalized Ratio (INR) is a therapeutic monitoring tool for patients who are stable on oral anticoagulant therapy. An INR of 2.0-3.0 is suggested for deep vein thrombosis/pulmonary embolism. Specimen Blood Performing Organization Address City/[facility] Phone Number [facility] DEPARTMENT OF PATHOLOGY AND [address] [place] [phone] [place] [phone] CBC with platelet and differential (10/27/2018 11:15 AM ELECTRONICS TECHNICIAN APPRENTICE) WBC 5.04 4.50 - 11.00 k/uL [facility] RBC 3.02 (L) 4.20 - 5.50 m/uL [facility] HGB 9.0 (L) 12.0 - 16.0 g/dL [facility] HCT 28.1 (L) 37.0 - 47.0 % [facility] MCV 93.0 82.0 - 100.0 fL [facility] MCH 29.8 27.0 - 34.0 pg [facility] MCHC 32.0 31.0 - 37.0 g/dL [facility] RDW - SD 45.1 37.0 - 55.0 fL [facility] MPV 10.8 8.8 - 13.2 fL [facility] Platelet count 110 (L) 150 - 400 k/uL [facility] Nucleated RBC 0.00 /100 WBC [facility] Neutrophils 61.5 39.0 - 69.0 % [facility] Lymphocytes 23.6 (L) 25.0 - 45.0 % [facility] Monocytes 12.1 (H) 0.0 - 10.0 % [facility] Eosinophils 2.2 0.0 - 5.0 % [facility] Basophils 0.2 0.0 - 1.0 % [facility] Immature granulocytes 0.4Comment: "Immature 0.0 - 1.0 % [facility]" [facility] (promyelocytes, myelocytes, metamyelocytes) Specimen Blood Performing Organization Address City/[facility] Phone Number [facility] DEPARTMENT OF PATHOLOGY AND [address] [place] [address] Urine culture (10/27/2018 11:15 AM ELECTRONICS TECHNICIAN APPRENTICE) Urine culture SEE COMMENTComment: Bacteriuria [facility] screen negative. Performing Organization Address City/[facility] Phone Number [facility] DEPARTMENT OF PATHOLOGY AND [address] [place] [phone] Serum electrophoresis (10/27/2018 11:15 AM ELECTRONICS TECHNICIAN APPRENTICE) Protein 6.4 6.3 - 8.3 g/dL [facility] Comment: HOSPITAL [place] 4.6-7.0 g/dL 1 week 4.4-7.6 g/dL 7 months-1year5.1-7.3 g/dL 1-2 years5.6-7.5 g/dL >3 years6.0-8.0 g/dL 18-150 6.3-8.3 g/dL SPE albumin 3.99 (L) 4.00 - 5.30 g/dL [facility] SPE alpha 1 0.18 0.10 - 0.25 g/dL [facility] SPE alpha 2 0.81 0.58 - 0.84 g/dL [facility] SPE beta 0.62 0.50 - 1.10 g/dL [facility] SPE gamma 0.80 0.60 - 1.30 g/dL [facility] SPE extended See CommentComment: An [facility] interpretation essentially normal [facility] serum protein study. SPE interpretation See CommentComment: [facility] Melchor Cotton MD; [facility] Sami Barrow, PhD; Bret Gutiérrez MD, PhD Specimen Serum Performing Organization Address City/State/Zipcode Phone Number [facility] DEPARTMENT OF PATHOLOGY AND [address] [place] [phone] GENOMIC MEDICINE [facility] [address] [place] [id number] Comprehensive metabolic panel (10/27/2018 11:15 AM ELECTRONICS TECHNICIAN APPRENTICE) Sodium 145 135 - 148 mEq/L [facility] Potassium 3.7 3.5 - 5.0 mEq/L [facility] Chloride 105 98 - 112 mEq/L [facility] CO2 25 24 - 31 mEq/L [facility] Anion gap 15@ANIO 7 - 15 mEq/L [facility] BUN 54 (H) 8 - 23 mg/dL [facility] Creatinine 3.73 (H) 0.50 - 0.90 mg/dL [facility] Glucose 106 (H) 65 - 99 mg/dL [facility] Calcium 9.2 8.8 - 10.2 mg/dL [facility] Protein 6.6 6.3 - 8.3 g/dL [facility] Comment: [facility] [place] 4.6-7.0 g/dL 1 week 4.4-7.6 g/dL 7 months-1year5.1-7.3 g/dL 1-2 years5.6-7.5 g/dL >3 years6.0-8.0 g/dL 18-150 6.3-8.3 g/dL Albumin 3.2 (L) 3.5 - 5.0 g/dL [facility] A/G ratio 0.9 0.7 - 3.8 [facility] Alkaline phosphatase 94 35 - 104 U/L [facility] AST 25 10 - 35 U/L [facility] ALT 11 5 - 50 U/L [facility] Total bilirubin <0.2 0.0 - 1.2 mg/dL [facility] Specimen Plasma specimen Performing Organization Address City/State/Zipcode Phone Number [facility] DEPARTMENT OF PATHOLOGY AND [address] [place] [address] GENOMIC MEDICINE [facility] [address] [place] [address] after 03/24/2018 Insurance Payer Benefit Plan / Group Subscriber ID Type Phone Address MEDICARE MEDICARE PART A AND B xxxxxxxxxxx Medicare [place], [place] [address] [place] [id number] [facility] [employer] Self 1950 [address] [place] [id number] Advance Directives Patient has advance care planning documents on file. For more information, please contact:[facility] [place] [address]
--- OUTSIDE RECORDS SUMMARY | 2019-03-25 02:35 | XMS REPORT | Clinical Summary ---
:1950 Author Organization [facility] Address [address] [place] [address] Care Team Providers Name Role Phone Pcp, [...] . Active Problems Patient Care Coordination Note Podiatric Assistant- Jong Cooper [phone] Genomics Scientist- Miguel Guillen- [phone] [facility] [phone] Problem Noted Date Stage 4 chronic kidney [...] Laird 10/20/2018 Abstract Transplant Claire Dwyer after 03/24/2018 Family History Medical History Relation Name Comments [...] Taken Blood Pressure 147/77 11/30/2018 11:02 AM ROOM INSPECTOR Pulse 54 11/30/2018 11:02 AM ROOM INSPECTOR Temperature 36.3 C (97.4 F) 11/30/2018 11:02 AM ROOM INSPECTOR Respiratory Rate 18 11/30/2018 11:02 AM ROOM INSPECTOR Oxygen Saturation 96% 11/30/2018 11:02 AM ROOM INSPECTOR Inhaled Oxygen Concentration - - Weight 76.4 kg (168 lb 6.4 oz) 11/30/2018 11:02 AM ROOM INSPECTOR Height 167.6 cm (5' 6") 11/30/2018 11:02 AM ROOM INSPECTOR Body Mass Index 27.18 11/30/2018 11:02 AM ROOM INSPECTOR Plan of Treatment Not on file Procedures Procedure Name Priority Date/Time Associated Comments Diagnosis TRANSFUSION SERVICE 12/01/2018 6:04 REPORT - SCAN PM ROOM INSPECTOR CBC W/PLT COUNT & AUTO Routine 11/30/2018 8:10 Pre-transplant Results for this DIFFERENTIAL AM ROOM INSPECTOR evaluation for procedure are in chronic kidney the results disease section. Secondary hypertension Systemic lupus erythematosus, unspecified SLE type, unspecified organ involvement status (HCC) Anemia of renal disease DIRECT AHG (CANELO)/DIRECT Routine 11/30/2018 8:10 Pre-transplant Results for this NICHOLE AM ROOM INSPECTOR evaluation for procedure are in chronic kidney the results disease section. Secondary hypertension Systemic lupus erythematosus, unspecified SLE type, unspecified organ involvement status (HCC) Anemia of renal disease AB SPECIFICITY CLASS II Routine 11/30/2018 8:10 Pre-transplant Results for this AM ROOM INSPECTOR evaluation for procedure are in chronic kidney the results disease section. Secondary hypertension Systemic lupus erythematosus, unspecified SLE type, unspecified organ involvement status (HCC) Anemia of renal disease EQUAL MIX, NORMAL Routine 11/30/2018 8:10 Pre-transplant Results for this PLASMA AM ROOM INSPECTOR evaluation for procedure are in chronic kidney the results disease section. Secondary hypertension Systemic lupus erythematosus, unspecified SLE type, unspecified organ involvement status (HCC) Anemia of renal disease DOUBLE-STRANDED DNA Routine 11/30/2018 8:10 Pre-transplant Results for this (DSDNA) ANTIBODY AM ROOM INSPECTOR evaluation for procedure are in chronic kidney the results disease section. Secondary hypertension Systemic lupus erythematosus, unspecified SLE type, unspecified organ involvement status (HCC) Anemia of renal disease COMPLEMENT COMPONENT C4 Routine 11/30/2018 8:10 Pre-transplant Results for this AM ROOM INSPECTOR evaluation for procedure are in chronic kidney the results disease section. Secondary hypertension Systemic lupus erythematosus, unspecified SLE type, unspecified organ involvement status (HCC) Anemia of renal disease COMPLEMENT COMPONENT C3 Routine 11/30/2018 8:10 Pre-transplant Results for this AM ROOM INSPECTOR evaluation for procedure are in chronic kidney the results disease section. Secondary hypertension Systemic lupus erythematosus, unspecified SLE type, unspecified organ involvement status (HCC) Anemia of renal disease CARDIOLIPIN ANTIBODIES, Routine 11/30/2018 8:10 Pre-transplant Results for this IGG AND IGM AM ROOM INSPECTOR evaluation for procedure are in chronic kidney the results disease section. Secondary hypertension Systemic lupus erythematosus, unspecified SLE type, unspecified organ involvement status (HCC) Anemia of renal disease FLOW PRA CLASS II WITH Routine 11/30/2018 8:10 Pre-transplant Results for this REFLEX TO ANTIBODY AM ROOM INSPECTOR evaluation for procedure are in SPECIFICITY chronic kidney the results disease section. Secondary hypertension Systemic lupus erythematosus, unspecified SLE type, unspecified organ involvement status (HCC) Anemia of renal disease FLOW PRA CLASS I WITH Routine 11/30/2018 8:10 Pre-transplant Results for this REFLEX TO ANTIBODY AM ROOM INSPECTOR evaluation for procedure are in SPECIFICITY chronic kidney the results disease section. Secondary hypertension Systemic lupus erythematosus, unspecified SLE type, unspecified organ involvement status (HCC) Anemia of renal disease HLA TYPING CII Routine 11/30/2018 8:10 Pre-transplant Results for this AM ROOM INSPECTOR evaluation for procedure are in chronic kidney the results disease section. Secondary hypertension Systemic lupus erythematosus, unspecified SLE type, unspecified organ involvement status (HCC) Anemia of renal disease HLA TYPING CI Routine 11/30/2018 8:10 Pre-transplant Results for this AM ROOM INSPECTOR evaluation for procedure are in chronic kidney the results disease section. Secondary hypertension Systemic lupus erythematosus, unspecified SLE type, unspecified organ involvement status (HCC) Anemia of renal disease HEMOGLOBIN A1C Routine 11/30/2018 8:10 Pre-transplant Results for this AM ROOM INSPECTOR evaluation for procedure are in chronic kidney the results disease section. Secondary hypertension Systemic lupus erythematosus, unspecified SLE type, unspecified organ involvement status (HCC) Anemia of renal disease VARICELLA ZOSTER Routine 11/30/2018 8:10 Pre-transplant Results for this ANTIBODY, IGG AM ROOM INSPECTOR evaluation for procedure are in chronic kidney the results disease section. Secondary hypertension Systemic lupus erythematosus, unspecified SLE type, unspecified organ involvement status (HCC) Anemia of renal disease URINALYSIS W/ Routine 11/30/2018 8:10 Pre-transplant Results for this MICROSCOPIC AM ROOM INSPECTOR evaluation for procedure are in chronic kidney the results disease section. Secondary hypertension Systemic lupus erythematosus, unspecified SLE type, unspecified organ involvement status (HCC) Anemia of renal disease URIC ACID Routine 11/30/2018 8:10 Pre-transplant Results for this AM ROOM INSPECTOR evaluation for procedure are in chronic kidney the results disease section. Secondary hypertension Systemic lupus erythematosus, unspecified SLE type, unspecified organ involvement status (HCC) Anemia of renal disease T SPOT TB Routine 11/30/2018 8:10 Pre-transplant Results for this AM ROOM INSPECTOR evaluation for procedure are in chronic kidney the results disease section. Secondary hypertension Systemic lupus erythematosus, unspecified SLE type, unspecified organ involvement status (HCC) Anemia of renal disease RPR Routine 11/30/2018 8:10 Pre-transplant Results for this AM ROOM INSPECTOR evaluation for procedure are in chronic kidney the results disease section. Secondary hypertension Systemic lupus erythematosus, unspecified SLE type, unspecified organ involvement status (HCC) Anemia of renal disease PT/APTT Routine 11/30/2018 8:10 Pre-transplant Results for this AM ROOM INSPECTOR evaluation for procedure are in chronic kidney the results disease section. Secondary hypertension Systemic lupus erythematosus, unspecified SLE type, unspecified organ involvement status (HCC) Anemia of renal disease PTH, INTACT Routine 11/30/2018 8:10 Pre-transplant Results for this AM ROOM INSPECTOR evaluation for procedure are in chronic kidney the results disease section. Secondary hypertension Systemic lupus erythematosus, unspecified SLE type, unspecified organ involvement status (HCC) Anemia of renal disease PHOSPHORUS Routine 11/30/2018 8:10 Pre-transplant Results for this AM ROOM INSPECTOR evaluation for procedure are in chronic kidney the results disease section. Secondary hypertension Systemic lupus erythematosus, unspecified SLE type, unspecified organ involvement status (HCC) Anemia of renal disease LACTATE DEHYDROGENASE Routine 11/30/2018 8:10 Pre-transplant Results for this (LDH) AM ROOM INSPECTOR evaluation for procedure are in chronic kidney the results disease section. Secondary hypertension Systemic lupus erythematosus, unspecified SLE type, unspecified organ involvement status (HCC) Anemia of renal disease HIV-1 ANTIGEN WITH Routine 11/30/2018 8:10 Pre-transplant Results for this HIV-1/2 ANTIBODY AM ROOM INSPECTOR evaluation for procedure are in chronic kidney the results disease section. Secondary hypertension Systemic lupus erythematosus, unspecified SLE type, unspecified organ involvement status (HCC) Anemia of renal disease HEPATITIS C ANTIBODY Routine 11/30/2018 8:10 Pre-transplant Results for this AM ROOM INSPECTOR evaluation for procedure are in chronic kidney the results disease section. Secondary hypertension Systemic lupus erythematosus, unspecified SLE type, unspecified organ involvement status (HCC) Anemia of renal disease HEPATITIS B CORE Routine 11/30/2018 8:10 Pre-transplant Results for this ANTIBODY, IGM AM ROOM INSPECTOR evaluation for procedure are in chronic kidney the results disease section. Secondary hypertension Systemic lupus erythematosus, unspecified SLE type, unspecified organ involvement status (HCC) Anemia of renal disease HEPATITIS B SURFACE Routine 11/30/2018 8:10 Pre-transplant Results for this ANTIGEN AM ROOM INSPECTOR evaluation for procedure are in chronic kidney the results disease section. Secondary hypertension Systemic lupus erythematosus, unspecified SLE type, unspecified organ involvement status (HCC) Anemia of renal disease HEPATITIS B SURFACE Routine 11/30/2018 8:10 Pre-transplant Results for this ANTIBODY AM ROOM INSPECTOR evaluation for procedure are in chronic kidney the results disease section. Secondary hypertension Systemic lupus erythematosus, unspecified SLE type, unspecified organ involvement status (HCC) Anemia of renal disease GAMMA GLUTAMYL Routine 11/30/2018 8:10 Pre-transplant Results for this TRANSFERASE (GGT) AM ROOM INSPECTOR evaluation for procedure are in chronic kidney the results disease section. Secondary hypertension Systemic lupus erythematosus, unspecified SLE type, unspecified organ involvement status (HCC) Anemia of renal disease EBV ANTIBODY, IGM Routine 11/30/2018 8:10 Pre-transplant Results for this AM ROOM INSPECTOR evaluation for procedure are in chronic kidney the results disease section. Secondary hypertension Systemic lupus erythematosus, unspecified SLE type, unspecified organ involvement status (HCC) Anemia of renal disease EBV ANTIBODY, IGG Routine 11/30/2018 8:10 Pre-transplant Results for this AM ROOM INSPECTOR evaluation for procedure are in chronic kidney the results disease section. Secondary hypertension Systemic lupus erythematosus, unspecified SLE type, unspecified organ involvement status (HCC) Anemia of renal disease COMPREHENSIVE METABOLIC Routine 11/30/2018 8:10 Pre-transplant Results for this PANEL AM ROOM INSPECTOR evaluation for procedure are in chronic kidney the results disease section. Secondary hypertension Systemic lupus erythematosus, unspecified SLE type, unspecified organ involvement status (HCC) Anemia of renal disease CYTOMEGALOVIRUS Routine 11/30/2018 8:10 Pre-transplant Results for this ANTIBODY, IGM AM ROOM INSPECTOR evaluation for procedure are in chronic kidney the results disease section. Secondary hypertension Systemic lupus erythematosus, unspecified SLE type, unspecified organ involvement status (HCC) Anemia of renal disease CYTOMEGALOVIRUS Routine 11/30/2018 8:10 Pre-transplant Results for this ANTIBODY, IGG AM ROOM INSPECTOR evaluation for procedure are in chronic kidney the results disease section. Secondary hypertension Systemic lupus erythematosus, unspecified SLE type, unspecified organ involvement status (HCC) Anemia of renal disease CBC W/PLT COUNT & AUTO Routine 11/30/2018 8:10 Pre-transplant Results for this DIFFERENTIAL AM ROOM INSPECTOR evaluation for procedure are in chronic kidney the results disease section. Secondary hypertension Systemic lupus erythematosus, unspecified SLE type, unspecified organ involvement status (HCC) Anemia of renal disease URINE CULTURE Routine 11/30/2018 8:10 Pre-transplant Results for this AM ROOM INSPECTOR evaluation for procedure are in chronic kidney the results disease section. Secondary hypertension Systemic lupus erythematosus, unspecified SLE type, unspecified organ involvement status (HCC) Anemia of renal disease BLOOD TYPING, AUTOMATED Routine 11/30/2018 8:02 Pre-transplant Results for this AM ROOM INSPECTOR evaluation for procedure are in chronic kidney the results disease section. Secondary hypertension Systemic lupus erythematosus, unspecified SLE type, unspecified organ involvement status (HCC) Anemia of renal disease 2D ECHO W/ DOPPLER Routine 11/09/2018 (CW/PW/COLOR) ECG 12-LEAD Routine 11/09/2018 MAMMO SCREENING Routine 09/22/2018 BILATERAL US RETROPERITONEAL Routine 08/16/2018 LIMITED after 03/24/2018 Results TRANSFUSION SERVICE REPORT - SCAN (12/01/2018 6:04 PM ROOM INSPECTOR) Narrative Performed At HLA TYPING CII (11/30/2018 8:10 AM ROOM INSPECTOR) HLA-DR AG1 9 [facility] HLA-DR AG2 13 [facility] HLA-DR AG3-1 [facility] HLA-DR AG3-2 52 [facility] HLA-DR AG4-1 53 [facility] HLA-DR AG4-2 [facility] HLA-DR AG5-1 [facility] HLA-DR AG5-2 [facility] HLA-DQA1 AG 1-1 03 [facility] HLA-DQA1 AG 1-2 01 [facility] HLA-DQB1 AG 1-1 2 [facility] HLA-DQB1 AG 1-2 6 [facility] HLA-DPA1 AG 1-1 02 [facility] HLA-DPA1 AG 1-2 01 [facility] HLA-DPB1 AG 1-1 13:01 [facility] HLA-DPB1 AG 1-2 04:01 [facility] HLA-AG Notes [facility] HLA-AG Report Comments [facility] Specimen Blood Narrative Performed At Disclaimer: [facility] This test was developed and its performance characteristics determined by the [facility] Laboratory. It has not been [...] complexity clinical laboratory testing. Performing Organization Address City/[facility] [place], [place] Phone Number [facility] ONE Fabrice Gutiérrez, MS: [place] [address] [id number], CLIA#[id number] CAP#[id number] UNOS#[id number] HLA TYPING CI (11/30/2018 8:10 AM ROOM INSPECTOR) HLA-A AG1 23 [facility] HLA-A AG2 68 [facility] HLA-B AG1 63 [facility] HLA-B AG2 53 [facility] HLA-C AG1 7 [facility] HLA-C AG2 6 [facility] HLA-B BW1 4 [facility] HLA-B BW2 4 [facility] HLA-AG Notes [facility] HLA-AG Report Comments [facility] Specimen Blood Narrative Performed At Disclaimer: [facility] This test was developed and its performance characteristics determined by the [facility] Laboratory. It has not been [...] complexity clinical laboratory testing. Performing Organization Address City/[facility] [place], [place] Phone Number [facility] ONE Fabrice Gutiérrez, MS: [place] [address] [id number], CLIA#[id number] CAP#[id number] UNOS#[id number] FLOW PRA CLASS II WITH REFLEX TO ANTIBODY SPECIFICITY (11/30/2018 8:10 AM ROOM INSPECTOR) Flow Class II Percent Positive 85 [facility] Flow Class Report Comments [facility] Specimen Blood Narrative Performed At Disclaimer: [facility] This test was developed and its performance characteristics determined by the [facility] Laboratory. It has not been [...] complexity clinical laboratory testing. Performing Organization Address City/State/[facility] Phone Number [facility] ONE Fabrice Gutiérrez, MS: [place] [address] [id number], CLIA#[id number] CAP#[id number] UNOS#[id number] FLOW PRA CLASS I WITH REFLEX TO ANTIBODY SPECIFICITY (11/30/2018 8:10 AM ROOM INSPECTOR) Flow Class I Percent Positive 0 [facility] Flow Class Report Comments [facility] Specimen Blood Narrative Performed At Disclaimer: [facility] This test was developed and its performance characteristics determined by the [facility] Laboratory. It has not been [...] complexity clinical laboratory testing. Performing Organization Address City/[facility] [place] [place] Phone Number [facility] Fabrice Gutiérrez, MS: [place] [address] [id number], CLIA#[id number] CAP#[id number] UNOS#[id number] AB SPECIFICITY CLASS II (11/30/2018 8:10 AM ROOM INSPECTOR) AB Specificity Class II DP:19 [facility] AB Specificity Titr Class Report MFIs > 4000 [facility] Specimen Blood Narrative Performed At Disclaimer: [facility] This test was developed and its performance characteristics determined by the [facility] Laboratory. It has not been [...] complexity clinical laboratory testing. Performing Organization Address City/[facility] Phone Number [facility] ONE Fabrice Gutiérrez, MS: [place] [address] [id number], CLIA#[id number] CAP#[id number] UNOS#[id number] T Spot TB (11/30/2018 8:10 AM ROOM INSPECTOR) T-Spot TB Negative [facility] Neg Ctrl Spot Count 0 [facility] Panel A Spot 0 [facility] Panel B Spot 0 [facility] Pos Ctrl Spot Ct 0 [facility] Scan Result [facility] Specimen Blood Narrative Performed At Performing Organization Address City/State/Zipcode Phone Number [facility] [address] [place] [address] LAB[address]ATORIES [address] PT/aPTT (11/30/2018 8:10 AM ROOM INSPECTOR) Protime 13.9 11.7 - 14.7 seconds [facility] INR 1.1 <=5.9 [facility] PTT 30.4 22.5 - 36.0 seconds [facility] Specimen Blood Narrative Performed At RECOMMENDED COUMADIN/WARFARIN INR THERAPY [facility] RANGES STANDARD DOSE: 2.0 - 3.0 Includes: PROPHYLAXIS for venous thrombosis, systemic embolization; TREATMENT for venous thrombosis and/or pulmonary embolus. HIGH RISK: Target INR is 2.5-3.5 for patients with mechanical heart valves. Performing Organization Address City/[facility] Phone Number [address] [address] [phone] CENTER HIV-1 Antigen with HIV-1/2 Antibody (11/30/2018 8:10 AM ROOM INSPECTOR) HIV-1 Antigen with HIV 1&2 NON-REACTIVE Nonreactive [facility] Specimen Blood Performing Organization Address City/[facility]/Zipcode Phone Number [address] [address] CENTER 1:1 MIXING STUDY, NON-INCUBATED (11/30/2018 8:10 AM ROOM INSPECTOR) Protime 13.8 11.7 - 14.7 seconds [facility] PTT 31.6 22.5 - 36.0 seconds [facility] PT 1/1 Mix 13.5 11.7 - 14.7 SECS [facility] PTT 11/15 Mix 31.9 22.5 - 36.0 SECS [facility] Specimen Blood Performing Organization Address City/State/Zipcode Phone Number [facility] [address] [place] [address] CENTER CBC with platelet count + automated diff (11/30/2018 8:10 AM ROOM INSPECTOR) WBC 6.3 3.5 - 10.5 K/L [facility] RBC 3.17 (L) 3.93 - 5.22 M/L [facility] Hemoglobin 9.6 (L) 11.2 - 15.7 GM/DL [facility] Hematocrit 29.9 (L) 34.1 - 44.9 % [facility] MCV 94.3 79.4 - 94.8 fL [facility] MCH 30.3 25.6 - 32.2 pg [facility] MCHC 32.1 (L) 32.2 - 35.5 GM/DL [facility] RDW 12.6 11.7 - 14.4 % [facility] Platelets 128 (L) 150 - 450 K/CU MM [facility] MPV 11.1 9.4 - 12.3 fL [facility] nRBC 0 0 - 0 /100 WBC [facility] % Neutros 71 % [facility] % Lymphs 19 % [facility] % Monos 8 % [facility] % Eos 2 % [facility] % Baso 0 % [facility] # Neutros 4.50 1.56 - 6.13 K/L [facility] # Lymphs 1.20 1.18 - 3.74 K/L [facility] # Monos 0.51 (H) 0.24 - 0.36 K/L [facility] # Eos 0.10 0.04 - 0.36 K/L [facility] # Baso 0.01 0.01 - 0.08 K/L [facility] Immature Granulocytes-Relative 0 0 - 1 % [facility] Specimen Blood Performing Organization Address City/State/[facility] Phone Number [address] [address] [place] Hepatitis C Antibody (11/30/2018 8:10 AM ROOM INSPECTOR) Hepatitis C Ab NON-REACTIVE Nonreactive [facility] Specimen Blood Performing Organization Address [facility] Phone Number [address] [address] [phone] [place] Cytomegalovirus antibody, IgM (11/30/2018 8:10 AM ROOM INSPECTOR) CMV IGM Negative Negative, Equivocal [facility] Specimen Blood Narrative Performed At CMV IgM Result Interpretation: [facility] </=0.8 Al Negative 0.9-1.0 Al Equivocal >/=1.1 Al Positive Performing Organization Address [facility] [place] [place] Phone Number [address] [address] [place] Double-Stranded DNA (dsDNA) Antibody (11/30/2018 8:10 AM ROOM INSPECTOR) ds DNA Ab Negative [facility] Specimen Blood Performing Organization Address City/[facility] Phone Number [address] [address] [place] Hepatitis B core antibody, IgM (11/30/2018 8:10 AM ROOM INSPECTOR) Hep B C IgM NON-REACTIVE Nonreactive [facility] Specimen Blood Performing Organization Address City/State/Zipcode Phone Number [address] [address] [phone] [place] EBV-VCA antibody, IgM (11/30/2018 8:10 AM ROOM INSPECTOR) LAUREEN WEBSTER VIRAL CAPSID Negative Negative, Equivocal [facility] Specimen Blood Narrative Performed At Laureen Webster Viral Capsid Antigen IgM Result [facility] Interpretation: </=0.8 Al Negative 0.9-1.0 Al Equivocal >/=1.1 Al Positive Performing Organization Address City/[facility] Phone Number [address] [address] [place] EBV-VCA antibody, IgG (11/30/2018 8:10 AM ROOM INSPECTOR) LAUREEN WEBSTER VIRAL CAPSID Positive (A) Negative, Equivocal [facility] Specimen Blood Narrative Performed At Laureen Webster Viral Capsid Antigen IgG Result [facility] Interpretation: </=0.8 Al Negative 0.9-1.0 Al Equivocal >/=1.1 Al Positive Performing Organization Address [facility] Phone Number [address] [address] [place] RPR (11/30/2018 8:10 AM ROOM INSPECTOR) RPR Nonreactive Nonreactive [facility] Specimen Blood Performing Organization Address City/[facility] Phone Number [address] [address] [place] Hepatitis B surface antibody (11/30/2018 8:10 AM ROOM INSPECTOR) Hep B S Ab <8.0 <8.0 mIU/mL [facility] Specimen Blood Performing Organization Address City/[facility]/Zipcode Phone Number [address] [address] [place] Hepatitis B surface antigen (11/30/2018 8:10 AM ROOM INSPECTOR) hepatitis B Surface Ag NON-REACTIVE Nonreactive [facility] Specimen Blood Performing Organization Address [facility] Phone Number [address] [address] [place] Cytomegalovirus antibody, IgG (11/30/2018 8:10 AM ROOM INSPECTOR) CYTOMEGALOVIRUS, IGG Positive (A) Negative, Equivocal [facility] Specimen Blood Narrative Performed At CMV IgG Result Interpretation: [facility] </=0.8 Al Negative 0.9-1.0 Al Equivocal >/=1.1 AlPositive Performing Organization Address [facility] Phone Number [address] [address] [place] Cardiolipin Antibodies, IgG and IgM (11/30/2018 8:10 AM ROOM INSPECTOR) Anticardiolipin IgG <1.6 <20.0 GPL [facility] Anticardiolipin IgM <0.2 <20.0 MPL [facility] Specimen Blood Narrative Performed At Anticardiolipin IgG Result Interpretation: [facility] <20.0 GPL Normal >/=20.0 GPL Positive Anticardiolipin IgM Result Interpretation: <20.0 MPL Normal >/=20.0 MPL Positive Performing Organization Address [facility] Phone Number [address] [address] [place] Urinalysis, Routine (11/30/2018 8:10 AM ROOM INSPECTOR) Color, UA Yellow [facility] Clarity, UA Clear [facility] Specific [place], UA 1.011 1.001 - 1.035 [facility] pH, UA 5.5 5.0 - 8.0 [facility] Protein, UA 200 mg/dL (A) Negative [facility] Glucose, UA Negative Negative [facility] Ketones, UA Negative Negative [facility] Bilirubin, UA Negative Negative [facility] Blood, UA Trace (A) Negative [facility] Nitrite, UA Negative Negative [facility] Leukocytes, UA Negative Negative [facility] Urobilinogen, UA 0.2 0.2 - 1.0 mg/dL [facility] RBC, UA <1 /HPF [facility] WBC, UA 7 /HPF [facility] Bacteria, UA Occasional [facility] Squam Epithel, UA 1 /HPF [facility] Specimen Source [facility] Specimen Urine Performing Organization Address [facility]ode Phone Number [address] [address] [phone] [place] Direct AHG (CANELO)/Direct Nichole (11/30/2018 8:10 AM ROOM INSPECTOR) Direct AHG-IGG NEGATIVE [facility] Direct AHG-C3B, C3D NEGATVIE [facility] Specimen Blood Performing Organization Address [facility]ode Phone Number [address] [address] Urine Culture (11/30/2018 8:10 AM ROOM INSPECTOR) Result >100,000 col/mL skin stanley [facility] Specimen Urine Performing Organization Address [facility]ode Phone Number [address] [address] [phone] [place] Varicella Zoster Antibody, IgG (11/30/2018 8:10 AM ROOM INSPECTOR) Varicella IgG 7.3 [facility] Specimen Blood Narrative Performed At VARICELLA ZOSTER RESULT INTERPRETATIONS: [facility] <=0.8 AlNonreactive:Presumed non-immune to VZV 0.9-1.0 AlEquivocal >=1.1 AlReactive:Presumed immune to VZV Performing Organization Address [facility] Phone Number [address] [address] C[place] Complement Component C3 (11/30/2018 8:10 AM ROOM INSPECTOR) C3 Complement 82 82 - 193 mg/dL [facility] Specimen Blood Performing Organization Address [facility] Phone Number [address] [address] [place] Complement Component C4 (11/30/2018 8:10 AM ROOM INSPECTOR) C4 Complement 39 15 - 57 mg/dL [facility] Specimen Blood Performing Organization Address [facility] [place], [place] Phone Number [address] [address] [phone] CENTER Uric Acid (11/30/2018 8:10 AM ROOM INSPECTOR) Uric Acid 10.3 (H) 2.6 - 7.2 mg/dL [facility] Specimen Blood Performing Organization Address [facility] [place] [place] Phone Number [address] [address] C[place] Phosphorus (11/30/2018 8:10 AM ROOM INSPECTOR) Phosphorus 6.7 (H) 2.3 - 4.7 mg/dL [facility] Specimen Blood Performing Organization Address [facility] [place] [place] Phone Number [address] [address] [phone] CENTER PTH, Intact (11/30/2018 8:10 AM ROOM INSPECTOR) PTH 315.4 (H) 8.5 - 72.5 pg/mL [facility] Specimen Blood Performing Organization Address [facility] Phone Number [address] [address] C[place] Lactate Dehydrogenase (LDH) (11/30/2018 8:10 AM ROOM INSPECTOR) LDH 285 (H) 125 - 220 U/L [facility] Specimen Blood Performing Organization Address [facility]ode Phone Number [address] [address] [place] Hemoglobin A1c (11/30/2018 8:10 AM ROOM INSPECTOR) Hemoglobin A1C 5.2 4.3 - 6.1 % [facility] Specimen Blood Performing Organization Address [facility] Phone Number [address] [address] [place] Gamma Glutamyl Transferase (GGT) (11/30/2018 8:10 AM ROOM INSPECTOR) GGT 36 9 - 64 U/L [facility] Specimen Blood Performing Organization Address [facility] Phone Number [address] [address] [phone] [place] Comprehensive metabolic panel (11/30/2018 8:10 AM ROOM INSPECTOR) Protein, Total 6.9 6.0 - 8.3 gm/dL [facility] Albumin 3.9 3.5 - 5.0 g/dL [facility] Alkaline Phosphatase 92 40 - 150 U/L [facility] Total Bilirubin 0.3 0.2 - 1.2 mg/dL [facility] Sodium 140 136 - 145 meq/L [facility] Potassium 4.1 3.5 - 5.1 meq/L [facility] Chloride 106 98 - 107 meq/L [facility] CO2 20 (L) 22 - 29 meq/L [facility] BUN 70 (H) 7 - 21 mg/dL [facility] Creatinine 5.40 (H) 0.57 - 1.25 mg/dL [facility] Glucose 117 (H) 70 - 105 mg/dL [facility] Calcium 9.6 8.4 - 10.2 mg/dL [facility] AST 19 5 - 34 U/L [facility] ALT 11 6 - 55 U/L [facility] EGFR 8Comment: ESTIMATED GFR mL/min/1.[address] [facility] IS NOT ACCURATE [facility] CREATININE CLEARANCE IN PREDICTING GLOMERULAR FILTRATION RATE. ESTIMATED GFR IS NOT APPLICABLE FOR DIALYSIS PATIENTS. Specimen Blood Performing Organization Address [facility]/Zipcode Phone Number [address] [address] [phone] CENTER Blood typing, automated (11/30/2018 8:02 AM ROOM INSPECTOR) ABO/RH AUTOMATED (BEAKER) O POSITIVE [facility] Specimen Blood Performing Organization Address [facility] Cent[facility]ode Phone Number [address] [address] [phone] Echo W/Doppler(CW/PW/Color) (11/09/2018) Narrative Performed At ECG 12 lead (11/09/2018) Narrative Performed At Mammography screening bilateral (09/22/2018) Narrative Performed At Ultrasound retroperitoneal limited (08/16/2018) Narrative Performed At after 03/24/2018 Insurance Payer Benefit Plan / Group Subscriber ID Type Phone Address MEDICARE MEDICARE A B xxxxxxxxxxx Medicare xxxxxxxxx Other Govt ([facility] [place], [facility], etc.) (Home) [place] [address]
--- OUTSIDE RECORDS SUMMARY | 2019-03-25 02:36 | XMS REPORT ---
:1950 [facility] Address [address] [place] [address] Dr. Fitch [address] [place] [address] Care Team Providers Name Role Phone MARIO ANDERSEN Unavailable Unavailable Problems This patient has no known problems. Allergies, Adverse Reactions, Alerts This patient has no known allergies or adverse reactions. Medications This patient has no known medications. Results Test Description Test Time Test Comments Text Results Atomic Results Result Comments URINE CULTURE 2018-12-02 16:29:00 Test Item Value Reference Range Comments CULTURE (HackHandsAKER) (test ebqi=2034) >100,000 col/mL skin stanley CYTOMEGALOVIRUS ANTIBODY, [id number] 12:23:00 Test Item Value Reference Range Comments CYTOMEGALOVIRUS IGM ANTIBODY (BEAKER) (test Negative Negative, Equivocal jwhb=8799) CMV IgM Result Interpretation: </=0.8 Al Negative 0.9-1.0 Al Equivocal >/=1.1 Al PositiveCYTOMEGALOVIRUS ANTIBODY, [id number] 12:18:00 Test Item Value Reference Range Comments CYTOMEGALOVIRUS, IGG (HackHandsAKER) (test hzvu=7009) Positive Negative, Equivocal CMV IgG Result Interpretation: </=0.8 Al Negative 0.9-1.0 Al Equivocal &gt ;/=1.1 Al PositiveEBV ANTIBODY, [id number] 12:18:00 Test Item Value Reference Range Comments SHAKIR ESTRADA VIRAL CAPSID ANTIGEN IGG (BEAKER) Positive Negative, Equivocal (test itxa=5304) Shakir Estrada Viral Capsid Antigen IgG Result Interpretation: </=0.8 Al Negative 0.9-1.0 Al Equivocal >/=1.1 Al PositiveCARDIOLIPIN ANTIBODIES, IGG AND [id number] 12:18:00 Test Item Value Reference Range Comments ANTICARDIOLIPIN IGG ANTIBODY (BEAKER) (test snfm=189) < GPL <20.0 ANTICARDIOLIPIN IGM ANTIBODY (BEAKER) (test zrph=812) < MPL <20.0 Anticardiolipin IgG Result Interpretation: <20.0 GPL Normal>/=20.0 GPL PositiveAnticardiolipin IgM Result Interpretation: <20.0 MPL Normal>/= 20.0 MPL PositiveDOUBLE-STRANDED DNA (DSDNA) [id number] 11:08:00 Test Item Value Reference Range Comments ANTI-DNA DS (BEAKER) (test npba=5944) Negative EBV ANTIBODY, [id number] 10:52:00 Test Item Value Reference Range Comments SHAKIR ESTRADA VIRAL CAPSID ANTIGEN IGM (BEAKER) Negative Negative, Equivocal (test uagt=9294) Shakir Estrada Viral Capsid Antigen IgM Result Interpretation: </=0.8 Al Negative 0.9-1.0 Al Equivocal >/=1.1 Al PositiveVARICELLA ZOSTER ANTIBODY , [id number] 10:52:00 Test Item Value Reference Range Comments VARICELLA ZOSTER IGG (AL) (BEAKER) (test afgh=3791) 7.3 VARICELLA ZOSTER RESULT INTERPRETATIONS: <=0.8 Al Nonreactive: Presumed non-immune to VZV 0.9-1.0 Al Equivocal >=1.1 Al Reactive: Presumed immune to [id number] 13:57:00 Test Item Value Reference Range Comments RPR SCREEN (BEAKER) (test wflj=852) Nonreactive Nonreactive 1:1 MIXING STUDY, [id number] 11:12:00 Test Item Value Reference Range Comments PROTIME (BEAKER) (test qbhb=999) 13.8 seconds 11.7-14.7 PARTIAL THROMBOPLASTIN TIME (BEAKER) (test 31.6 seconds 22.5-36.0 agtd=988) PT 1/1 MIX (BEAKER) (test weld=8537) 13.5 SECS 11.7-14.7 PTT 1/1 MIX (BEAKER) (test tcoz=9714) 31.9 SECS 22.5-36.0 HEPATITIS B SURFACE [id number] 10:16:00 Test Item Value Reference Range Comments HEPATITIS B SURFACE ANTIBODY (BEAKER) (test < mIU/mL <8.0 auzr=013) HEPATITIS B SURFACE [id number] 09:48:00 Test Item Value Reference Range Comments HEPATITIS B SURFACE ANTIGEN (2) (BEAKER) (test Nonreactive Nonreactive jofr=6370) HEPATITIS B CORE ANTIBODY, [id number] 09:48:00 Test Item Value Reference Range Comments HEPATITIS B CORE IGM ANTIBODY (BEAKER) (test Nonreactive Nonreactive kicl=748) HEPATITIS C [id number] 09:42:00 Test Item Value Reference Range Comments HEPATITIS C ANTIBODY (BEAKER) (test cdjy=440) Nonreactive Nonreactive HIV-1 ANTIGEN WITH HIV-1/2 [id number] 09:42:00 Test Item Value Reference Range Comments HIV-1 ANTIGEN WITH HIV 1\T\2 ANTIBODY (2) Nonreactive Nonreactive (BEAKER) (test ndqo=3884) HEMOGLOBIN [id number] 09:33:00 Test Item Value Reference Range Comments HEMOGLOBIN A1C (BEAKER) (test rfve=155) 5.2 % 4.3-6.1 COMPLEMENT COMPONENT [id number] 09:29:00 Test Item Value Reference Range Comments C4 COMPLEMENT (BEAKER) (test kscg=023) 39 mg/dL 15-57 COMPLEMENT COMPONENT [id number] 09:29:00 Test Item Value Reference Range Comments C3 COMPLEMENT (BEAKER) (test cksr=165) 82 mg/dL 82-193 COMPREHENSIVE METABOLIC [id number] 09:29:00 Test Item Value Reference Range Comments TOTAL PROTEIN (BEAKER) 6.9 gm/dL 6.0-8.3 (test mrvy=057) ALBUMIN (BEAKER) (test 3.9 g/dL 3.5-5.0 rhcc=0878) ALKALINE PHOSPHATASE 92 U/L 40-150 (BEAKER) (test rbrg=904) BILIRUBIN TOTAL (BEAKER) 0.3 mg/dL 0.2-1.2 (test wjep=638) SODIUM (BEAKER) (test 140 meq/L 136-145 ciwq=429) POTASSIUM (BEAKER) (test 4.1 meq/L 3.5-5.1 hpff=738) CHLORIDE (BEAKER) (test 106 meq/L 98-107 oedn=124) CO2 (BEAKER) (test 20 meq/L 22-29 owah=559) BLOOD UREA NITROGEN 70 mg/dL 7-21 (BEAKER) (test xakk=052) CREATININE (BEAKER) (test 5.40 mg/dL 0.57-1.25 qssj=001) GLUCOSE RANDOM (BEAKER) 117 mg/dL 70-105 (test lgtt=899) CALCIUM (BEAKER) (test 9.6 mg/dL 8.4-10.2 lblj=998) AST (SGOT) (BEAKER) (test 19 U/L 5-34 ywlq=337) ALT (SGPT) (BEAKER) (test 11 U/L 6-55 aurx=294) EGFR (BEAKER) (test 8 mL/min/1.73 sq m ESTIMATED GFR IS NOT pcbe=7797) ACCURATE CREATININE CLEARANCE IN PREDICTING GLOMERULAR FILTRATION RATE. ESTIMATED GFR IS NOT APPLICABLE FOR DIALYSIS PATIENTS. URIC [id number] 09:25:00 Test Item Value Reference Range Comments URIC ACID (BEAKER) (test olnu=017) 10.3 mg/dL 2.6-7.2 [id number] 09:25:00 Test Item Value Reference Range Comments PHOSPHORUS (BEAKER) (test jwul=280) 6.7 mg/dL 2.3-4.7 GAMMA GLUTAMYL TRANSFERASE (GGT)2018-11-30 09:25:00 Test Item Value Reference Range Comments GAMMA GLUTAMYL TRANSFERASE (BEAKER) (test djww=418) 36 U/L 9-64 LACTATE DEHYDROGENASE (LDH)2018-11-30 09:25:00 Test Item Value Reference Range Comments LACTATE DEHYDROGENASE (BEAKER) (test hcyd=467) 285 U/L 125-220 PTH, [id number] 09:19:00 Test Item Value Reference Range Comments PARATHYROID HORMONE INTACT (BEAKER) (test 315.4 pg/mL 8.5-72.5 ashd=194) URINALYSIS W/ [id number] 09:08:00 Test Item Value Reference Range Comments COLOR (BEAKER) (test qxbd=413) Yellow CLARITY (BEAKER) (test tzqv=027) Clear SPECIFIC GRAVITY UA (BEAKER) (test jztb=504) 1.011 1.001-1.035 PH UA (BEAKER) (test mygp=789) 5.5 5.0-8.0 PROTEIN UA (BEAKER) (test tocz=924) 200 mg/dL Negative GLUCOSE UA (BEAKER) (test ynvf=815) Negative Negative KETONES UA (BEAKER) (test ezcp=760) Negative Negative BILIRUBIN UA (BEAKER) (test oebh=308) Negative Negative BLOOD UA (BEAKER) (test wtvv=717) Trace Negative NITRITE UA (BEAKER) (test yroc=622) Negative Negative LEUKOCYTE ESTERASE UA (BEAKER) (test dbul=031) Negative Negative UROBILINOGEN UA (BEAKER) (test ryei=103) 0.2 mg/dL 0.2-1.0 RBC UA (BEAKER) (test pomx=159) < /HPF WBC UA (BEAKER) (test zzfh=027) 7 /HPF BACTERIA (BEAKER) (test cnzi=774) Occasional SQUAMOUS EPITHELIAL (BEAKER) (test mkqb=123) 1 /HPF SOURCE(BEAKER) (test efbf=6563) [id number] 08:58:00 Test Item Value Reference Range Comments PROTIME (BEAKER) (test gvfx=014) 13.9 seconds 11.7-14.7 INR (BEAKER) (test erve=769) 1.1 <=5.9 PARTIAL THROMBOPLASTIN TIME (BEAKER) (test 30.4 seconds 22.5-36.0 vccw=514) RECOMMENDED COUMADIN/WARFARIN INR THERAPY RANGESSTANDARD DOSE: 2.0 - 3.0 Includes: PROPHYLAXIS forvenous thrombosis, systemic embolization; TREATMENT for venous thrombosis and/or pulmonary embolus.HIGH RISK: Target INR is 2.5-3.5 for patients with mechanical heart valves.CBC W/PLT COUNT & AUTO [id number] 08:47:00 Test Item Value Reference Range Comments WHITE BLOOD CELL COUNT (BEAKER) (test zltk=286) 6.3 K/ L 3.5-10.5 RED BLOOD CELL COUNT (BEAKER) (test wjsc=428) 3.17 M/ L 3.93-5.22 HEMOGLOBIN (BEAKER) (test gnfp=890) 9.6 GM/DL 11.2-15.7 HEMATOCRIT (BEAKER) (test pips=805) 29.9 % 34.1-44.9 MEAN CORPUSCULAR VOLUME (BEAKER) (test ndnv=350) 94.3 fL 79.4-94.8 MEAN CORPUSCULAR HEMOGLOBIN (BEAKER) (test 30.3 pg 25.6-32.2 lccr=883) MEAN CORPUSCULAR HEMOGLOBIN CONC (BEAKER) (test 32.1 GM/DL 32.2-35.5 ubnt=530) RED CELL DISTRIBUTION WIDTH (BEAKER) (test 12.6 % 11.7-14.4 kfgi=623) PLATELET COUNT (BEAKER) (test jaxx=829) 128 K/CU MM 150-450 MEAN PLATELET VOLUME (BEAKER) (test ikwr=727) 11.1 fL 9.4-12.3 NUCLEATED RED BLOOD CELLS (BEAKER) (test 0 /100 WBC 0-0 dunn=175) NEUTROPHILS RELATIVE PERCENT (BEAKER) (test 71 % qfxa=575) LYMPHOCYTES RELATIVE PERCENT (BEAKER) (test 19 % onoo=216) MONOCYTES RELATIVE PERCENT (BEAKER) (test 8 % kagi=281) EOSINOPHILS RELATIVE PERCENT (BEAKER) (test 2 % bwzx=974) BASOPHILS RELATIVE PERCENT (BEAKER) (test 0 % vtbb=915) NEUTROPHILS ABSOLUTE COUNT (BEAKER) (test 4.50 K/ L 1.56-6.13 slta=765) LYMPHOCYTES ABSOLUTE COUNT (BEAKER) (test 1.20 K/ L 1.18-3.74 itic=907) MONOCYTES ABSOLUTE COUNT (BEAKER) (test 0.51 K/ L 0.24-0.36 osus=850) EOSINOPHILS ABSOLUTE COUNT (BEAKER) (test 0.10 K/ L 0.04-0.36 sdxy=046) BASOPHILS ABSOLUTE COUNT (BEAKER) (test 0.01 K/ L 0.01-0.08 zaey=638) IMMATURE GRANULOCYTES-RELATIVE PERCENT (BEAKER) 0 % 0-1 (test rbix=9181)
[2019-03-25] MEDS ORDERED: METOPROLOL TAR 50 MG TAB ONE (03:10)
[2019-03-25] MEDS ORDERED: ASPIRIN 81 MG CHEWABLE TABLET ONE (03:10)
[2019-03-25 03:12] LABS: Protime INR 1.07
[2019-03-25] MEDS ORDERED: MORPHINE 4 MG/ML SYR ONE (03:13)
[2019-03-25] MEDS ORDERED: METOPROLOL TARTRATE 5 MG/5 ML INJ IV ONE (03:13)
[2019-03-25] MEDS ORDERED: ONDANSETRON 4 MG/2 ML VIAL ONE (03:13)
[2019-03-25] MEDS ORDERED: NA CHLORIDE 0.9% 1,000 ML ONE (03:13)
[2019-03-25 03:14] LABS: Absolute Lymphocytes (CBC) 1.2 K/uL (0.7-4.9); Absolute Neutrophil 4.7 K/uL (1.8-8.0); Basophils % 0.7 % (0-1.3); Eosinophils % 0.3 % (0-4.4); Hematocrit 32.2 % (36.0-45.0); Lymphocytes % 17.4 % (15.3-44.8); MPV 10.1 fL (7.6-11.3); Monocytes % 14.6 % (3.3-12.3); RBC Red Blood Cell Count 3.56 M/uL (3.86-4.86)
[2019-03-25 03:42] LABS: Albumin 3.7 g/dL (3.4-5.0); Bilirubin Direct 0.1 mg/dL (0-0.2); Bilirubin Total 0.4 mg/dL (0.2-1.0); Magnesium 2.2 mg/dL (1.8-2.4); Protein, Total 7.5 g/dL (6.4-8.2); Troponin (Emerg Dept Use Only) 0.36 ng/mL (0.0-0.045)
--- NOTE | 2019-03-25 03:42 | ER ---
Nurse's Notes [facility] Name: Cheyanne Haywood Age: 68 yrs Sex: Female : 1950 Arrival Date: 03/25/2019 Time: 02:33 Bed 15 Private MD: Diagnosis: Chest pain, unspecified;End stage renal disease;Anemia, unspecified Presentation: 03/25 02:34 Presenting complaint: EMS states: Chest pain that work her up out of sleep. It comes ed1 and goes. Transition of care: patient was not received from another setting of care. Onset of symptoms was March 25, 2019. Risk Assessment: Do you want to hurt yourself or someone else? Patient reports no desire to harm self or others. Initial Sepsis Screen: Does the patient meet any 2 criteria? No. Patient's initial sepsis screen is negative. Does the patient have a suspected source of infection? No. Patient's initial sepsis screen is negative. Care prior to arrival: Medication(s) given: zofran 4 mg, IV initiated. 22 GA, in the right hand, Glucose check: 124 Oxygen administered. via nasal cannula. 02:34 Method Of Arrival: EMS: [facility] ed1 02:34 Acuity: NORMA 2 ed1 Triage Assessment: 02:38 General: Appears uncomfortable, Behavior is calm, cooperative. Pain: Complains of pain ed1 in anterior aspect of left upper chest Pain does not radiate. Pain currently is 6 out of 10 on a pain scale. at worst was 8 out of 10 on a pain scale. Quality of pain is described as pressure, Pain began 30 min ago. EENT: No signs and/or symptoms were reported regarding the EENT system. Neuro: Level of Consciousness is awake, alert, obeys commands, Oriented to person, place, time, situation. Cardiovascular: Reports chest pain, nausea, Heart tones S1 S2 present Capillary refill < 3 seconds in bilateral fingers. Respiratory: Airway is patent Respiratory effort is even, unlabored, Respiratory pattern is regular, symmetrical, Breath sounds are clear bilaterally. GI: Abdomen is non-distended, Bowel sounds present X 4 quads. Abd is soft and non tender X 4 quads. Reports nausea. : No signs and/or symptoms were reported regarding the genitourinary system. Derm: Skin is fragile, is thin, Skin is diaphoretic, Skin is pale, Skin temperature is warm. Musculoskeletal: Circulation, motion, and sensation intact. Range of motion: intact in all extremities. Historical: - Allergies: 02:38 No Known Allergies; ed1 - Home Meds: 02:38 aspirin 81 mg Oral chew once daily [Active]; atorvastatin 40 mg Oral tab 0.5 tab once ed1 daily [Active]; calcitriol 0.25 mcg Oral cap [Active]; Cartia XT 240 mg Oral cp24 1 cap once daily for Hypertension [Active]; hydroychloroquine sulfate 200mg [Active]; Lasix 40 mg Oral tab 1 tab 2 times per day [Active]; metoprolol tartrate 50 mg Oral tab 1 tab 2 times per day [Active]; sertraline 25 mg Oral tab 1 tab once daily [Active]; - PMHx: 02:38 Depression; Hypertension; ESRD; Lupus; M/W/F Dialysis; ed1 - PSHx: 02:38 CABG; ed1 - Immunization history:: Adult Immunizations up to date. - Social history:: Smoking status: Patient/guardian denies using tobacco. - Ebola Screening: : Patient negative for fever greater than or equal to 101.5 degrees Fahrenheit, and additional compatible Ebola Virus Disease symptoms Patient denies exposure to infectious person Patient denies travel to an Ebola-affected area in the 21 days before illness onset No symptoms or risks identified at this time. - Family history:: not pertinent. Screenin:42 Abuse screen: Denies threats or abuse. Denies injuries from another. Nutritional ed1 screening: No deficits noted. Tuberculosis screening: No symptoms or risk factors identified. Fall Risk None identified. Assessment: 02:42 General: See triage assessment. Pain: Complains of pain in anterior aspect of left ed1 upper chest Pain currently is 6 out of 10 on a pain scale. 03:15 Reassessment: Patient appears in no apparent distress at this time. Patient and/or ed1 family updated on plan of care and expected duration. Pain level reassessed. Patient is alert, oriented x 3, equal unlabored respirations, skin warm/dry/pink. Patient states feeling better. Patient states symptoms have improved. Pain: Complains of pain in chest and anterior aspect of left upper chest Pain does not radiate. Pain currently is 4 out of 10 on a pain scale. Quality of pain is described as pressure, Pain began 1 hour ago. Is intermittent, Also complains of nausea, diaphoresis. 04:26 Reassessment: Patient appears in no apparent distress at this time. Patient and/or ed1 family updated on plan of care and expected duration. Pain level reassessed. Patient is alert, oriented x 3, equal unlabored respirations, skin warm/dry/pink. Patient states feeling better. Patient states symptoms have improved. 05:09 Cardiovascular: Dialysis shunt: in the anterior aspect of right upper chest, Dressing ed1 clean, dry, intact. Vital Signs: 02:38 BP 133 / 88; Pulse 112; Resp 21; Temp 97.3; Pulse Ox 100% on R/A; Weight 74.84 kg; ed1 Height 5 ft. 6 in. (167.64 cm); Pain 6/10; 03:15 BP 107 / 69; Pulse 88; Resp 15; Pulse Ox 96% on R/A; Pain 4/10; ed1 03:26 Pulse 88; ed1 03:55 Weight 70.2 kg (M); ed1 04:26 BP 79 / 60; Pulse 87; Resp 14; Temp 98.4(O); Pulse Ox 100% on R/A; Pain 2/10; ed1 05:07 BP 97 / 58; Pulse 84; Resp 14; Temp 97.5(TE); Pulse Ox 96% on R/A; Pain 0/10; ed1 03:55 Body Mass Index 24.98 (70.20 kg, 167.64 cm) ed1 04:26 Dr. Carrizales notified, new orders received ed1 ED Course: 02:33 Patient arrived in ED. ed1 02:35 Triage completed. ed1 02:35 Jaime Carrizales MD is Attending Physician. [facility] 02:38 Arm band placed on right wrist. EKG completed in triage. Results shown to MD. ed1 02:42 Patient has correct armband on for positive identification. Placed in gown. Bed in low ed1 position. Call light in reach. Side rails up X2. clinical research monitor on. Pulse ox on. NIBP on. Warm blanket given. 02:42 Maintain EMS IV. Dressing intact. Good blood return noted. Site clean \T\ dry. Gauge \T\ ed 1 site: 22g right hand. Patient maintains SpO2 saturation greater than 95% on room air. 02:50 Almaguer, Kierra, DEBORAH is Primary Nurse. ed1 02:52 Inserted saline lock: 20 gauge in right antecubital area, using aseptic technique. ed1 03:40 Connie Cervantes MD is Hospitalizing Provider. [facility] 03:45 EKG done, by ED staff, reviewed by Jaime Carrizales MD. ed1 03:54 X-ray completed. Portable x-ray completed in exam room. Patient tolerated procedure mh1 well. 03:55 XRAY Chest (1 view) In Process Unspecified. EDMS 04:26 Notified ED physician of vital signs. ed1 05:32 No provider procedures requiring assistance completed. Patient admitted, IV remains in ed1 place. intact, No redness/swelling at site. Administered Medications: 03:11 Drug: NS 0.9% 1000 ml Route: IV; Rate: 75 ml/hr; Site: right antecubital; ed1 04:19 Follow up: IV Status: Infusion continued upon admission ed1 03:12 Drug: morphine 2 mg Route: IVP; Site: right antecubital; ed1 03:27 Follow up: Response: No adverse reaction; Pain is unchanged, physician notified ed1 03:13 Drug: Zofran 4 mg Route: IVP; Site: right antecubital; ed1 03:26 Follow up: Response: No adverse reaction; Nausea is decreased ed1 03:13 Drug: Lopressor 5 mg Route: IVP; Site: right antecubital; ed1 03:26 Follow up: Pulse 88 bpm; Response: No adverse reaction; Cardiac rhythm changed ed1 03:26 Drug: Lopressor (metoprolol TARTRATE) 50 mg Route: PO; ed1 04:19 Follow up: Response: No adverse reaction ed1 03:27 Drug: Aspirin 162 mg Route: PO; ed1 04:19 Follow up: Response: No adverse reaction ed1 03:27 Drug: morphine 2 mg Route: IVP; Site: right antecubital; ed1 04:18 Follow up: Response: No adverse reaction; Pain is decreased ed1 04:13 Drug: Heparin (MO-Bolus No thrombolytic) - HEParin 60 units/kg {Co-Signature: fc ed1 (Shanice Piedra RN).} {Note: Actual dose: 4000 units.} Route: IVP; Site: right hand; 04:18 Follow up: Response: No adverse reaction ed1 04:15 Drug: Heparin (MO Drip) 12 units/kg/hr - (HEParin 33759 units, D5W 500 ml) ed1 {Co-Signature: fc (Shanice Piedra RN).} Route: IV; Rate: calculated rate; Site: right hand; 04:18 Follow up: IV Status: Infusion continued upon admission ed1 04:18 Not Given (Hemodynamic Parameters): Lopressor 2.5 mg IVP once; Hold for SBP <100 or HR ed1 <60. 04:18 Not Given (Hemodynamic Parameters): Lopressor 2.5 mg IVP once; Hold for SBP <100 or HR ed1 <60. 04:26 Drug: Pepcid 20 mg Route: IVP; Site: right antecubital; ed1 05:05 Follow up: Response: No adverse reaction ed1 04:26 Drug: PlaVIX 300 mg Route: PO; ed1 05:07 Follow up: Response: No adverse reaction ed1 04:46 Drug: NS 0.9% 250 ml Route: IV; Rate: bolus; Site: right antecubital; fc 05:07 Follow up: Response: No adverse reaction; Blood pressure is elevated; IV Status: ed1 Completed infusion; IV Intake: 250ml Intake: 05:07 IV: 250ml; Total: 250ml. ed1 Outcome: 03:41 Decision to Hospitalize by Provider. mike 05:33 Admitted to Med/surg accompanied by tech, family with patient, via wheelchair, room ed1 220, Report called to DEBORAH Mims 05:33 Condition: stable 05:33 Discharge instructions given to patient, family, Instructed on the need for admit, Demonstrated understanding of instructions. 05:45 Patient left the ED. ed1 Signatures: Dispatcher [employer] EDJaime Cai MD MD cha Harvey, Martha [facility] Shanice Piedra RN RN fc Riggs, Erika, RN RN ed1 Shanice fields Corrections: (The following items were deleted from the chart) 04:29 04:26 BP 79 / 60; Pulse 87bpm; Resp 14bpm; Pulse Ox 100% RA; Temp 98.4F Oral; Pain ed1 12/25; ed1 05:09 02:42 General: See triage assessment. ed1 ed1
--- NOTE | 2019-03-25 03:42 | EDPHYS ---
Physician Documentation [facility] Name: Cheyanne Haywood Age: 68 yrs Sex: Female : 1950 Arrival Date: 03/25/2019 Time: 02:33 Bed 15 Private MD: ANAM Physician Jaime Carrizales HPI: 03/25 02:54 This 68 yrs old Female presents to ER via EMS with complaints of Chest Pain > mike 31 y/o. 02:54 The patient or guardian reports chest pain that is located primarily in the anterior mike chest wall, left. Onset: this morning. The pain radiates to the left arm. Associated signs and symptoms: The patient has no apparent associated signs or symptoms. The chest pain is described as burning. Modifying factors: The symptoms are alleviated by nothing. the symptoms are aggravated by nothing. Severity of pain: At its worst the pain was moderate in the emergency department the pain is unchanged. The patient has not experienced similar symptoms in the past. Historical: - Allergies: 02:38 No Known Allergies; ed1 - Home Meds: 02:38 aspirin 81 mg Oral chew once daily [Active]; atorvastatin 40 mg Oral tab 0.5 tab once ed1 daily [Active]; calcitriol 0.25 mcg Oral cap [Active]; Cartia XT 240 mg Oral cp24 1 cap once daily for Hypertension [Active]; hydroychloroquine sulfate 200mg [Active]; Lasix 40 mg Oral tab 1 tab 2 times per day [Active]; metoprolol tartrate 50 mg Oral tab 1 tab 2 times per day [Active]; sertraline 25 mg Oral tab 1 tab once daily [Active]; - PMHx: 02:38 Depression; Hypertension; ESRD; Lupus; M/W/F Dialysis; ed1 - PSHx: 02:38 CABG; ed1 - Immunization history:: Adult Immunizations up to date. - Social history:: Smoking status: Patient/guardian denies using tobacco. - Ebola Screening: : Patient negative for fever greater than or equal to 101.5 degrees Fahrenheit, and additional compatible Ebola Virus Disease symptoms Patient denies exposure to infectious person Patient denies travel to an Ebola-affected area in the 21 days before illness onset No symptoms or risks identified at this time. - Family history:: not pertinent. ROS: 02:54 Constitutional: Negative for fever, chills, and weight loss, Eyes: Negative for injury, mike pain, redness, and discharge, ENT: Negative for injury, pain, and discharge, Neck: Negative for injury, pain, and swelling, Respiratory: Negative for shortness of breath, cough, wheezing, and pleuritic chest pain, Abdomen/GI: Negative for abdominal pain, nausea, vomiting, diarrhea, and constipation, Back: Negative for injury and pain, : Negative for injury, bleeding, discharge, and swelling, MS/Extremity: Negative for injury and deformity, Skin: Negative for injury, rash, and discoloration, Neuro: Negative for headache, weakness, numbness, tingling, and seizure, Psych: Negative for depression, anxiety, suicide ideation, homicidal ideation, and hallucinations, Allergy/Immunology: Negative for hives, rash, and allergies, Endocrine: Negative for neck swelling, polydipsia, polyuria, polyphagia, and marked weight changes, Hematologic/Lymphatic: Negative for swollen nodes, abnormal bleeding, and unusual bruising. 02:54 Cardiovascular: Positive for chest pain, of the left clavicle, anterior aspect of left upper chest, left lateral posterior chest, left lateral anterior chest and left breast. Exam: 02:54 Constitutional: This is a well developed, well nourished patient who is awake, alert, mike and in no acute distress. Head/Face: Normocephalic, atraumatic. Eyes: Pupils equal round and reactive to light, extra-ocular motions intact. Lids and lashes normal. Conjunctiva and sclera are non-icteric and not injected. Cornea within normal limits. Periorbital areas with no swelling, redness, or edema. ENT: Nares patent. No nasal discharge, no septal abnormalities noted. Tympanic membranes are normal and external auditory canals are clear. Oropharynx with no redness, swelling, or masses, exudates, or evidence of obstruction, uvula midline. Mucous membranes moist. Neck: Trachea midline, no thyromegaly or masses palpated, and no cervical lymphadenopathy. Supple, full range of motion without nuchal rigidity, or vertebral point tenderness. No Meningismus. Chest/axilla: Normal chest wall appearance and motion. Nontender with no deformity. No lesions are appreciated. Cardiovascular: Regular rate and rhythm with a normal S1 and S2. No gallops, murmurs, or rubs. Normal PMI, no JVD. No pulse deficits. Respiratory: Lungs have equal breath sounds bilaterally, clear to auscultation and percussion. No rales, rhonchi or wheezes noted. No increased work of breathing, no retractions or nasal flaring. Abdomen/GI: Soft, non-tender, with normal bowel sounds. No distension or tympany. No guarding or rebound. No evidence of tenderness throughout. Back: No spinal tenderness. No costovertebral tenderness. Full range of motion. Female : Normal external genitalia. Skin: Warm, dry with normal turgor. Normal color with no rashes, no lesions, and no evidence of cellulitis. MS/ Extremity: Pulses equal, no cyanosis. Neurovascular intact. Full, normal range of motion. Neuro: Awake and alert, GCS 15, oriented to person, place, time, and situation. Cranial nerves II-XII grossly intact. Motor strength 5/5 in all extremities. Sensory grossly intact. Cerebellar exam normal. Normal gait. Psych: Awake, alert, with orientation to person, place and time. Behavior, mood, and affect are within normal limits. 02:54 Chest/axilla: Inspection: ecchymosis, that is mild, of the right supraclavicular area and right clavicle Vital Signs: 02:38 BP 133 / 88; Pulse 112; Resp 21; Temp 97.3; Pulse Ox 100% on R/A; Weight 74.84 kg; ed1 Height 5 ft. 6 in. (167.64 cm); Pain 6/10; 03:15 BP 107 / 69; Pulse 88; Resp 15; Pulse Ox 96% on R/A; Pain 4/10; ed1 03:26 Pulse 88; ed1 03:55 Weight 70.2 kg (M); ed1 04:26 BP 79 / 60; Pulse 87; Resp 14; Temp 98.4(O); Pulse Ox 100% on R/A; Pain 2/10; ed1 05:07 BP 97 / 58; Pulse 84; Resp 14; Temp 97.5(TE); Pulse Ox 96% on R/A; Pain 0/10; ed1 03:55 Body Mass Index 24.98 (70.20 kg, 167.64 cm) ed1 04:26 Dr. Carrizales notified, new orders received ed1 MDM: 02:[address] [facility] 02:56 Data reviewed: vital signs, nurses notes, lab test result(s), EKG, radiologic studies. [facility] 03/25 02:49 Order name: Basic Metabolic Panel [facility] 03/25 02:49 Order name: CBC with Diff [facility] 03/25 02:49 Order name: LFT's; Complete Time: 04:06 [facility] 03/25 02:49 Order name: Magnesium; Complete Time: 04:06 [facility] 03/25 02:49 Order name: NT PRO-BNP; Complete Time: 04:06 [facility] 03/25 02:49 Order name: PT-INR; Complete Time: 03:36 [facility] 03/25 02:49 Order name: Troponin (emerg Dept Use Only); Complete Time: 04:06 [facility] 03/25 02:49 Order name: XRAY Chest ([address] view) [facility] 03/25 02:49 Order name: Lipase; Complete Time: 04:06 [facility] 03/25 02:50 Order name: Basic Metabolic Panel; Complete Time: 04:06 [facility] 03/25 02:50 Order name: CBC with Automated Diff; Complete Time: 03:36 [facility] 03/25 04:49 Order name: Lipid Profile [facility] 03/25 04:49 Order name: Troponin I [facility] 03/25 04:49 Order name: Troponin I [facility] 03/25 02:49 Order name: EKG; Complete Time: 02:51 [facility] 03/25 04:49 Order name: Echo with Doppler [facility] 03/25 02:49 Order name: Cardiac monitoring; Complete Time: 03:14 [facility] 03/25 02:49 Order name: EKG - Nurse/Tech; Complete Time: 03:15 [facility] 03/25 02:49 Order name: IV Saline Lock; Complete Time: 03:15 [facility] 03/25 02:49 Order name: Labs collected and sent; Complete Time: 03:15 [facility] 03/25 02:49 Order name: O2 Per Protocol; Complete Time: 03:15 [facility] 03/25 02:49 Order name: O2 Sat Monitoring; Complete Time: 03:15 [facility] 03/25 03:34 Order name: EKG; Complete Time: 03:35 [facility] 03/25 03:34 Order name: EKG - Nurse/Tech; Complete Time: 03:45 [facility] 03/25 04:49 Order name: CONS Physician Consult [facility] 03/25 04:49 Order name: Renal EDMS 03/25 04:49 Order name: EKG Electrocardiogram EDMS Administered Medications: 03:11 Drug: NS 0.9% 1000 ml Route: IV; Rate: 75 ml/hr; Site: right antecubital; ed1 04:19 Follow up: IV Status: Infusion continued upon admission ed1 03:12 Drug: morphine 2 mg Route: IVP; Site: right antecubital; ed1 03:27 Follow up: Response: No adverse reaction; Pain is unchanged, physician notified ed1 03:13 Drug: Zofran 4 mg Route: IVP; Site: right antecubital; ed1 03:26 Follow up: Response: No adverse reaction; Nausea is decreased ed1 03:13 Drug: Lopressor 5 mg Route: IVP; Site: right antecubital; ed1 03:26 Follow up: Pulse 88 bpm; Response: No adverse reaction; Cardiac rhythm changed ed1 03:26 Drug: Lopressor (metoprolol TARTRATE) 50 mg Route: PO; ed1 04:19 Follow up: Response: No adverse reaction ed1 03:27 Drug: Aspirin 162 mg Route: PO; ed1 04:19 Follow up: Response: No adverse reaction ed1 03:27 Drug: morphine 2 mg Route: IVP; Site: right antecubital; ed1 04:18 Follow up: Response: No adverse reaction; Pain is decreased ed1 04:13 Drug: Heparin (PA-Bolus No thrombolytic) - HEParin 60 units/kg {Co-Signature: donnie ed1 (Shanice Piedra RN).} {Note: Actual dose: 4000 units.} Route: IVP; Site: right hand; 04:18 Follow up: Response: No adverse reaction ed1 04:15 Drug: Heparin (PA Drip) 12 units/kg/hr - (HEParin 88065 units, D5W 500 ml) ed1 {Co-Signature: donnie (Shanice Piedra RN).} Route: IV; Rate: calculated rate; Site: right hand; 04:18 Follow up: IV Status: Infusion continued upon admission ed1 04:18 Not Given (Hemodynamic Parameters): Lopressor 2.5 mg IVP once; Hold for SBP <100 or HR ed1 <60. 04:18 Not Given (Hemodynamic Parameters): Lopressor 2.5 mg IVP once; Hold for SBP <100 or HR ed1 <60. 04:26 Drug: Pepcid 20 mg Route: IVP; Site: right antecubital; ed1 05:05 Follow up: Response: No adverse reaction ed1 04:26 Drug: PlaVIX 300 mg Route: PO; ed1 05:07 Follow up: Response: No adverse reaction ed1 04:46 Drug: NS 0.9% 250 ml Route: IV; Rate: bolus; Site: right antecubital; 05:07 Follow up: Response: No adverse reaction; Blood pressure is elevated; IV Status: ed1 Completed infusion; IV Intake: 250ml Disposition: 03/25/19 03:41 Hospitalization ordered by Connie Cervantes for Inpatient Admission. Preliminary diagnosis are Chest pain, unspecified, End stage renal disease, Anemia, unspecified. - Bed requested for Telemetry/MedSurg (Inpatient). - Status is Inpatient Admission. ed1 - Condition is Fair. - Problem is new. - Symptoms have improved. UTI on Admission? No Signatures: Dispatcher [employer] EDNE Becca Wilkes RN RN mw Anderson, Corey, MD MD cha Chretien, Felicia, RN RN Kierra Almaguer RN RN ed1 Shanice fields Corrections: (The following items were deleted from the chart) 03:43 03:41 Hospitalization Ordered by Connie Cervantes MD for Inpatient Admission. Preliminary mike diagnosis is Chest pain, unspecified; End stage renal disease. Bed requested for Telemetry/MedSurg (Inpatient). Status is Inpatient Admission. Condition is Fair. Problem is new. Symptoms have improved. UTI on Admission? No. mike 04:06 03:43 03/25/2019 03:41 Hospitalization Ordered by Connie Cervantes MD for Inpatient mw Admission. Preliminary diagnosis is Chest pain, unspecified; End stage renal disease; Anemia, unspecified. Bed requested for Telemetry/MedSurg (Inpatient). Status is Inpatient Admission. Condition is Fair. Problem is new. Symptoms have improved. UTI on Admission? No. mike 05:45 04:06 03/25/2019 03:41 Hospitalization Ordered by Connie Cervantes MD for Inpatient ed1 Admission. Preliminary diagnosis is Chest pain, unspecified; End stage renal disease; Anemia, unspecified. Bed requested for Telemetry/MedSurg (Inpatient). Status is Inpatient Admission. Condition is Fair. Problem is new. Symptoms have improved. UTI on Admission? No. mw
[2019-03-25] MEDS ORDERED: HEPARIN 5000 UNIT/ML 1 ML VIAL ONE (04:16)
[2019-03-25] MEDS ORDERED: HEPARIN/D5W 25,000 UNIT/500 ML BAG IV ONE (04:16)
[2019-03-25] MEDS ORDERED: FAMOTIDINE 20 MG/2 ML VIAL IV ONE (04:34)
[2019-03-25] MEDS ORDERED: CLOPIDOGREL 75 MG TABLET ONE (04:34)
[2019-03-25] MEDS ORDERED: MORPHINE 4 MG/ML SYR IV PRN (04:38)
[2019-03-25] MEDS ORDERED: ALPRAZOLAM 0.25 MG TABLET PO PRN (04:38)
[2019-03-25 06:34] LABS: Troponin I 3.76 ng/mL (0.0-0.045)
[2019-03-25] MEDS: METOPROLOL TAR 50 MG TAB PO SCH ×2 (08:30→21:00)
[2019-03-25] MEDS: ASPIRIN 325 MG TAB PO SCH (08:30)
[2019-03-25] MEDS ORDERED: ENOXAPARIN 30 MG/0.3 ML SQ SCH (09:00)
--- NOTE | 2019-03-25 09:17 | P.HP ---
Certification for Inpatient Patient admitted to: Inpatient With expected LOS: >2 Midnights Patient will require the following post-hospital care: None Practitioner: I am a practitioner with admitting privileges, knowledge of patient current condition, hospital course, and medical plan of care. Services: Services provided to patient in accordance with Admission requirements found in Title 42 Section 412.3 of the Code of Federal Regulations Patient History Date of Service: 03/25/19 Reason for admission: non ST-elevation myocardial infarction; acute coronary syndrome History of Present Illness: Patient is a 68-year-old female who came to the hospital with chest pain. Pain was mainly in the sternal region and she was short of breath. Pain radiated down her left arm as well. Patient has a history of coronary artery bypass grafting. She also recently started on hemodialysis. Yesterday was her 3rd session of hemodialysis. She started having chest discomfort yesterday evening. Decision was made to admit her to the hospital for further evaluation. Her troponins were mildly elevated. This is not uncommon in ESRD patients. Patient's EKG did not reveal any acute abnormality. However, her repeat troponins are significantly elevated. Continue heparin drip. Continue current plan of care. Allergies No Known Drug Allergies Allergy (Verified 03/25/19 06:00) Unknown Home Medications: Cyclosporine/Chondroit Sulf A [Cyclosporine 0.1% in Klarity] 1 drop EACH EYE BID PRN 11/05/18 Fluticasone [Flovent Hfa 110*] 1 spray IH BID PRN 11/05/18 Aspirin [Low Dose Aspirin EC] 1 tab PO DAILY 03/16/19 Atorvastatin Calcium [Lipitor] 0.5 tab PO DAILY 03/16/19 Calcitriol [Rocaltrol] 1 cap PO DAILY 03/16/19 Diltiazem HCl [Cartia Xt] 1 cap PO DAILY 03/16/19 Febuxostat [Uloric] 1 tab PO DAILY 03/16/19 Hydroxychloroquine Sulfate 1 tab PO DAILY 03/16/19 Metoprolol Tartrate 1 tab PO BID 03/16/19 Sertraline [Zoloft*] 1.5 tab PO DAILY 03/16/19 Sodium Bicarbonate 1,500 mg PO SEECOM 03/16/19 - Past Medical/Surgical History Has patient received pneumonia vaccine in the past: Yes Diabetic: No -: Hypertension -: Aortic valve replacement -: Coronary artery disease, CABG x1 vessel -: Lupus -: Chronic renal disease -: Anemia of chronic disease -: Depression -: Aortic valve replacement -: CABG x1 vessel -: Breast biopsies -: D&C Psychosocial/ Personal History: The patient is . She has children. She does not work. - Family History Mother Medical History: Other (see notes) Notes: ALS Father Medical History: Heart disease, Diabetes - Social History Smoking Status: Never smoker Alcohol use: No CD- Drugs: No Caffeine use: No Place of Residence: Home Review of Systems 10-point ROS is otherwise unremarkable Physical Examination - Vital Signs Temperature: 97.1 F Blood Pressure: 92/54 Pulse: 70 Respirations: 16 Pulse Ox (%): 93 - Physical Exam General: Alert, In no apparent distress, Oriented x3 HEENT: Atraumatic, PERRLA, Mucous membr. moist/pink, EOMI, Sclerae nonicteric Neck: Supple, No LAD, Without JVD or thyroid abnormality, Bruit Respiratory: Clear to auscultation bilaterally, Normal air movement Cardiovascular: Regular rate/rhythm, Normal S1 S2, Systolic murmur Gastrointestinal: Normal bowel sounds, Soft and benign, Non-distended, No tenderness Musculoskeletal: No clubbing, No swelling, No tenderness Integumentary: No rashes Neurological: Normal gait, Normal speech, Normal tone, Sensation intact, Cranial nerves 3-12 intact, Normal affect, Abnormal strength Lymphatics: No axilla or inguinal lymphadenopathy - Studies Laboratory Data (last 24 hrs) 03/25/19 02:52: PT 12.6 H, INR 1.07 03/25/19 02:52: WBC 7.0, Hgb 10.7 L, Hct 32.2 L, Plt Count 122 L 03/25/19 02:52: Sodium 136, Potassium 4.0, BUN 30 H D, Creatinine 3.76 H D, Glucose 137 H, Magnesium 2.2 D, Total Bilirubin 0.4, AST 35, ALT 15, Alkaline Phosphatase 98, Lipase 444 H Assessment & Plan - Problems (Diagnosis) (1) Acute coronary syndrome Current Visit: Yes Status: Acute (2) Coronary artery disease Onset Date: 11/02/16 Current Visit: No Status: Chronic Qualifiers: (3) H/O aortic valve replacement Current Visit: No Status: Chronic (4) Hypertension Onset Date: 11/02/16 Current Visit: No Status: Chronic Qualifiers: (5) Lupus Onset Date: 11/02/16 Current Visit: No Status: Chronic Qualifiers: (6) Chest pain, rule out acute myocardial infarction Current Visit: No Status: Resolved (7) ESRD (end stage renal disease) Current Visit: Yes Status: Acute - Plan 1. Serial troponins and EKG 2. Cardiology consultation 3. Echocardiogram and further intervention per Cardiology recommendations 4. Anti-platelet therapy, anti coagulation, beta-max, statin, and O2 as needed 5. IV morphine for pain 6. Nitro p.r.n. 7. Hemodialysis per Nephrology 8. KVO IV fluids and continue heparin drip 9. GI and DVT prophylax Discharge Plan: Home Plan to discharge in: Greater than 2 days - Advance Directives Does patient have a Living Will: No Does patient have a Durable POA for Healthcare: No - Code Status/Comfort Care Code Status Assessed: Yes Code Status: Full Code Critical Care: No Time Spent Managing PTS Care (In Minutes): 45
--- NOTE | 2019-03-25 09:19 | EKG ---
Test Date: 2019-03-25 Test Time: 03:41:44 Curtain Cutter Hand: ANAMR MEASUREMENT RESULTS: Intervals: Rate: 88 TX: 184 QRSD: 176 QT: 514 QTc: 621 [place]: P: 55 TX: 184 QRS: -64 T: 60 INTERPRETIVE STATEMENTS: Normal sinus rhythm Right bundle branch block Left anterior fascicular block Bifascicular block Voltage criteria for left ventricular hypertrophy Cannot rule out Septal infarct, age undetermined Abnormal ECG Compared to ECG 03/25/2019 02:32:47 Uncertain supraventricular rhythm no longer present Early repolarization no longer present Bifascicular block still present Myocardial infarct finding still present Electronically Signed On 03-25-19 09:18:34 CDT by Matthew Braden
--- NOTE | 2019-03-25 09:21 | EKG ---
Test Date: 2019-03-25 Test Time: 02:32:47 Salary And Wage Administrator: [id number] MEASUREMENT RESULTS: Intervals: Rate: 111 [place]: QRSD: 168 QT: 478 QTc: 650 [place]: P: NC: QRS: -61 T: 87 INTERPRETIVE STATEMENTS: sinus tach branch block Left anterior fascicular block Bifascicular block Left ventricular hypertrophy with repolarization abnormality Cannot rule out Septal infarct, age undetermined Abnormal ECG Compared to ECG 03/16/2019 17:29:54 left antrior block now present Bifascicular block now present Sinus rhythm no longer present Electronically Signed On 03-25-19 09:20:46 CDT by Matthew Braden
[2019-03-25] MEDS: HEPARIN/D5W 25,000 UNIT/500 ML BAG IV PRN (09:35)
[2019-03-25] MEDS: HYDROXYCHLOROQUINE 200MG TAB PO SCH (10:49)
[2019-03-25] MEDS: SERTRALINE HCL 50 MG TAB PO SCH (10:49)
--- NOTE | 2019-03-25 11:12 | RAD REPORT ---
EXAM DESCRIPTION: RAD - Chest Single View - 03/25/2019 3:55 am CLINICAL HISTORY: CHEST PAIN Chest pain. COMPARISON: Chest Single View dated 03/24/2019; Chest Single View dated 03/18/2019; Chest Single View d ated 03/16/2019; Chest Single View dated 02/20/2019 FINDINGS: Portable technique limits examination quality. The lungs are grossly clear. The heart is prominent in size with changes of a prior CABG. Right-sided venous catheter tip in the SVC. No displaced fractures. IMPRESSION: No acute intrathoracic process suspected.
[2019-03-25] MEDS: ACETAMINOPHEN 500 MG TAB PO PRN (13:02)
--- NOTE | 2019-03-25 14:13 | P.CNS ---
Date of Consult: 03/25/19 Reason for Consult: ESRD for electrolytes and volume management Chief Complaint: non ST-elevation myocardial infarction; acute coronary syndrome History of Present Illness: A 68 Y/o woman with PMhx of ESRD started on HD on 03/2019 , SLE , CAD S/P CABG , HTN and aortic valve replacement presented chest pain Pt was discharged after HD yesterday Pt presented with sharp retrosternal chest pain, and SOB no nausea or vomiting Allergies No Known Drug Allergies Allergy (Verified 03/25/19 06:00) Unknown Home Medications: Cyclosporine/Chondroit Sulf A [Cyclosporine 0.1% in Klarity] 1 drop EACH EYE BID PRN 11/05/18 Fluticasone [Flovent Hfa 110*] 1 spray IH BID PRN 11/05/18 Aspirin [Low Dose Aspirin EC] 1 tab PO DAILY 03/16/19 Atorvastatin Calcium [Lipitor] 0.5 tab PO DAILY 03/16/19 Calcitriol [Rocaltrol] 1 cap PO DAILY 03/16/19 Diltiazem HCl [Cartia Xt] 1 cap PO DAILY 03/16/19 Febuxostat [Uloric] 1 tab PO DAILY 03/16/19 Hydroxychloroquine Sulfate 1 tab PO DAILY 03/16/19 Metoprolol Tartrate 1 tab PO BID 03/16/19 Sertraline [Zoloft*] 1.5 tab PO DAILY 03/16/19 Sodium Bicarbonate 1,500 mg PO SEECOM 03/16/19 - Past Medical/Surgical History Diabetic: No -: Hypertension -: Aortic valve replacement -: Coronary artery disease, CABG x1 vessel -: Lupus -: Chronic renal disease -: Anemia of chronic disease -: Depression -: Aortic valve replacement -: CABG x1 vessel -: Breast biopsies -: D&C Psychosocial/ Personal History: The patient is . She has children. She does not work. - Family History Mother Medical History: Other (see notes) Notes: ALS Father Medical History: Heart disease, Diabetes - Social History Smoking Status: Never smoker Alcohol use: No CD- Drugs: No Caffeine use: No Place of Residence: Home Physical Examination Temp Pulse Resp BP Pulse Ox 97.3 F 71 15 109/62 97 03/25/19 12:00 03/25/19 12:00 03/25/19 12:00 03/25/19 12:00 03/25/19 12:00 General: In no apparent distress, Oriented x3 HEENT: Atraumatic Neck: Supple, Without JVD or thyroid abnormality Respiratory: Clear to auscultation bilaterally, Normal air movement Cardiovascular: No edema, Normal pulses, Regular rate/rhythm, Normal S1 S2, No rubs, No murmurs Gastrointestinal: Normal bowel sounds, Soft and benign Laboratory Data (last 24 hrs) 03/25/19 02:52: PT 12.6 H, INR 1.07 03/25/19 02:52: WBC 7.0, Hgb 10.7 L, Hct 32.2 L, Plt Count 122 L 03/25/19 02:52: Sodium 136, Potassium 4.0, BUN 30 H D, Creatinine 3.76 H D, Glucose 137 H, Magnesium 2.2 D, Total Bilirubin 0.4, AST 35, ALT 15, Alkaline Phosphatase 98, Lipase 444 H - Problems (1) Acute coronary syndrome Current Visit: Yes Status: Acute (2) ESRD (end stage renal disease) Current Visit: Yes Status: Chronic Conclusions/Impression: ESRD on HD MWF via tunnled cath HD as per schedule renal dose meds metabolic bone disease cont binders NSTEMI on heparin drip as per cardiology Anemia on BERNARD SLE resume home meds HTN Bp is borderline hold meds
[2019-03-25] MEDS ORDERED: ENOXAPARIN 40 MG/0.4 ML SQ SCH (17:00)
--- NOTE | 2019-03-25 19:31 | CON ---
Date of Consultation: 03/25/2019 Reason For Consultation: Non-ST elevation myocardial infarction. History Of Present Illness: A 68-year-old woman who just started dialysis 2 days ago, came into the hospital with chest pain radiating to her left arm. Troponin is 3.76. BNP of 86,141. Her EKG showe d bifascicular block. Creatinine is 3.76. Lipase of 444. Blood work consistent with subendocardial VT. She is pain-free now. She has also had a history of depression, dyslipidemia, and hypertension . She has a history of CABG x1 and a bioprosthetic aortic valve last area was 1.3 cm2. Her aortic v alve replacement and her CABG were done at the [facility] in 2016. She does see Dr. Cooper now in t office. Past Medical History: As stated above. Allergies: NONE. Review of Systems: Negative. Social History: Negative. Family History: Positive for heart disease. Medications: At home include aspirin, Lipitor, diltiazem, metoprolol, hydroxychloroquine, and Zoloft . Physical Examination: Vital Signs: Stable. She is afebrile. HEENT: Negative. Neck: Supple. No bruit, lymphadenopathy, JVD, or thyromegaly. Chest: Clear to auscultation and percussion. Cardiac: Exam revealed a regular rhythm and rate without S4 or gallops. Abdomen: Benign. Extremities: Revealed no clubbing, cyanosis, or edema. Skin: Dry and intact. Neurologic: She was nonfocal. Pulses were present distally and symmetrically bilaterally. Diagnostic Data: As stated earlier. Impression And Plan: Non-ST elevation myocardial infarction. The patient has typical chest pain. S he has had a history of CABG x1 and aortic valve replacement. Her last catheterization was prior to her bypass and aortic valve. It is of interest that she had a positive Lexiscan in February of 2019. A catheterization was avoided at that time because of her severe renal dysfunction. She is now on charlene lysis Wednesday, Wednesday, and Wednesday. I think she needs to have a heart catheterization done. Depend ing on how she feels, we can send her home and I set up the catheterization for today, one day betwee n her dialysis preferably next Wednesday. For now, I will continue her medical regimen as far as her h ypertension and her depression. She does have lupus for which she takes hydroxychloroquine. She messi es Lipitor for dyslipidemia. I will discuss the case further with Dr. Cramer. MAMTA/HECTOR Voice ID: [id number] Report ID: [id number]
[2019-03-25] MEDS: SODIUM BICARB 325 MG TAB PO SCH (20:13)
[2019-03-25] MEDS: HEPARIN 10,000 UNIT/10 ML VIAL IV PRN (20:14)
[2019-03-25] MEDS ORDERED: FENTANYL CITR 100 MCG/2 ML IV ONE (23:03)
[2019-03-25] MEDS ORDERED: NA CHLORIDE 0.9% 200 ML IV ONE (23:05)
[2019-03-26] MEDS ORDERED: NITROGLYCERIN 1 GM PKT TD ONE (01:21)
[2019-03-26] MEDS ORDERED: MORPHINE 4 MG/ML SYR IV ONE (01:22)
[2019-03-26] MEDS: SERTRALINE HCL 50 MG TAB PO SCH (07:45)
[2019-03-26] MEDS: SODIUM BICARB 325 MG TAB PO SCH (07:45)
[2019-03-26] MEDS: ASPIRIN 325 MG TAB PO SCH (07:46)
[2019-03-26] MEDS: HYDROXYCHLOROQUINE 200MG TAB PO SCH (07:47)
[2019-03-26] MEDS: HEPARIN 10,000 UNIT/10 ML VIAL IV PRN (07:49)
[2019-03-26] MEDS: METOPROLOL TAR 50 MG TAB PO SCH (07:49)
--- NOTE | 2019-03-26 10:55 | P.PN ---
Subjective Date of Service: 03/26/19 Chief Complaint: non ST-elevation myocardial infarction; acute coronary syndrome Subjective: No C/O voiced Patient seen and examined at bedside. No family at bedside. Chart reviewed and case discussed with Nursing staff and Dr. tucker. Patient admitted for chest pain, NSTEMI. Episode of severe chest pain noted overnight. Denies any chest pain at the time of my exam. Denies any sob, n/v, dizziness, headache, vision changes. Review of Systems 10-point ROS is otherwise unremarkable Physical Examination - Vital Signs Temperature: 97.6 F Blood Pressure: 90/56 Pulse: 92 Respirations: 15 Pulse Ox (%): 95 - Physical Exam General: Alert, In no apparent distress, Oriented x3 HEENT: Atraumatic, PERRLA, EOMI Neck: Supple, JVD not distended Respiratory: Clear to auscultation bilaterally, Normal air movement Cardiovascular: Regular rate/rhythm, Normal S1 S2 Gastrointestinal: Normal bowel sounds, No tenderness Musculoskeletal: No tenderness Integumentary: No rashes Neurological: Normal speech, Normal tone, Normal affect Lymphatics: No axilla or inguinal lymphadenopathy Assessment And Plan - Current Problems (Diagnosis) (1) NSTEMI (non-ST elevated myocardial infarction) Current Visit: Yes Status: Acute Plan: Patient with typical chest pain, elevated troponin and a positive lexiscan in . Cadriac cath was avoided at that time due to Renal failure. As she has now been started on HD, plan is for cardiology to cath her tomorrow before her dialysis session. NPO post midnight ECHO pending Continue IV morphine, nitro prn Continue heparin drip (2) ESRD (end stage renal disease) Current Visit: Yes Status: Chronic Plan: Nephrology consulted Patient with recently started HD Continue dialysis, per nephrology. (3) Hypertension Onset Date: 11/02/16 Current Visit: No Status: Chronic Plan: BP on the lower end. Will restart BP medications as needed and tolerated. Qualifiers: Hypertension type: essential hypertension (4) Lupus Onset Date: 11/02/16 Current Visit: No Status: Chronic Plan: Continue home medications. Qualifiers: Systemic lupus erythematosus type: unspecified Systemic lupus erythematosus organ involvement: unspecified Qualified Code(s): M32.9 - Systemic lupus erythematosus, unspecified (5) Anemia Onset Date: 11/02/16 Current Visit: No Status: Chronic Qualifiers: Anemia type: other cause Other causes of anemia: chronic disease, kidney Qualified Code(s): N18.9 - Chronic kidney disease, unspecified (6) Depression Onset Date: 11/02/16 Current Visit: No Status: Chronic Plan: Stable, continue home medications Denies SI or HI Qualifiers: Depression Type: unspecified Qualified Code(s): F32.9 - Major depressive disorder, single episode, unspecified - Plan DVT prophylaxis: Heparin drip GI prophylaxis: None Diet: Renal, NPO post midnight Disposition: pending cardiac cath 03/27/19 prior to dialysis session.
--- NOTE | 2019-03-26 12:04 | P.PN ---
Subjective Date of Service: 03/26/19 Chief Complaint: non ST-elevation myocardial infarction; acute coronary syndrome ESRD started recently, had chest pain after discharge NSTEMI BP borderline now will reduce metoprolol dose cardiac cath [facility] HD after cath will consider adding midodrine Physical Examination - Vital Signs Temperature: 97.6 F Blood Pressure: 90/56 Pulse: 92 Respirations: 15 Pulse Ox (%): 95 - Physical Exam General: In no apparent distress, Oriented x3 HEENT: Atraumatic Neck: Supple, Without JVD or thyroid abnormality Respiratory: Clear to auscultation bilaterally, Normal air movement Cardiovascular: No edema, Regular rate/rhythm, Normal S1 S2 Gastrointestinal: Normal bowel sounds Assessment And Plan - Current Problems (Diagnosis) (1) Acute coronary syndrome Current Visit: Yes Status: Acute (2) ESRD (end stage renal disease) Current Visit: Yes Status: Chronic - Plan ESRD on HD MWF via tunnled cath HD as per schedule renal dose meds metabolic bone disease cont binders NSTEMI on heparin drip cardiac cath tomorrow Anemia on BERNARD SLE resume home meds HTN Bp is borderline hold meds
--- NOTE | 2019-03-26 14:44 | PN ---
Ms. Haywood had came in yesterday with a subendocardial myocardial infarction, had not had any further chest pain. She has a dialysis patient. She has also had a bioprosthetic aortic valve with a bypas s surgery x1 in 2016. We have a plan to do a heart catheterization on her to find her coronary anato my. She understand and agrees to proceed. We will keep her in the hospital for now until the proced ure done tomorrow, if this is okay with vice principal, otherwise, we will plan to do it on Wednesday. H er normal dialysis is on Wednesday, Wednesday, and Wednesday. MAMTA/HECTOR Voice ID: [id number] Report ID: [id number]
[2019-03-26] MEDS: HEPARIN/D5W 25,000 UNIT/500 ML BAG IV PRN (16:02)
[2019-03-26] MEDS: METOPROLOL TAR 25 MG TAB PO SCH (17:28)
[2019-03-26] MEDS: ACETAMINOPHEN 500 MG TAB PO PRN ×2 (20:05→23:48)
[2019-03-26 23:23] LABS: Absolute Monocytes 0.9 K/uL (0.1-1.3); Absolute Neutrophil 5.1 K/uL (1.8-8.0); Basophils % 0.8 % (0-1.3); Eosinophils % 0.1 % (0-4.4); Hematocrit 27.1 % (36.0-45.0); Lymphocytes % 14.4 % (15.3-44.8); MPV 9.6 fL (7.6-11.3); Monocytes % 12.5 % (3.3-12.3); RBC Red Blood Cell Count 2.95 M/uL (3.86-4.86)
[2019-03-26 23:34] LABS: Magnesium 2.1 mg/dL (1.8-2.4); Potassium 4.6 mmol/L (3.5-5.1)
[2019-03-26] MEDS ORDERED: CEFTRIAXONE 1 GM/NS 50 ML 1 GM/50 ML BAG IV ONE (23:48)
[2019-03-27] MEDS ORDERED: CEFTRIAXONE/SWI 1gm 1 GM/10 ML SYR IV ONE (01:00)
[2019-03-27 04:46] LABS: Urine Appearance CLEAR; Urine Bilirubin NEGATIVE (NEG); Urine Blood 1+ (NEG); Urine Color YELLOW; Urine Glucose NEGATIVE (NEG); Urine Protein 2+ (NEG); Urine Urobilinogen 0.2 mg/dL (0.2-1.0)
[2019-03-27 05:33] LABS: Urine Bacteria <20 /HPF (<20); Urine Culture Reflex Order NOT NEEDED; Urine RBC NONE SEEN /HPF (NONE SEEN)
[2019-03-27] MEDS: METOPROLOL TAR 25 MG TAB PO SCH ×2 (06:00→17:19)
--- NOTE | 2019-03-27 07:30 | RAD REPORT ---
EXAM DESCRIPTION: Dolly Single View03/27/2019 6:40 am CLINICAL HISTORY: cough COMPARISON: March 25, 2019 FINDINGS: The lungs appear clear of acute infiltrate. The heart is mildly enlarged. Postsurgical changes involve the chest. Such venous line remains in place IMPRESSION: No acute abnormalities displayed
--- NOTE | 2019-03-27 07:43 | P.PN ---
Date of Service: 03/27/19 Subjective: Patient with sinus pause & sinus arrhythmia. Patient is still having some chest discomfort. Alleviated with pain medicine. Plan for cardiac catheterization in the morning. Patient has been febrile and patient was cultured and IV antibiotics given. Physical Examination Vitals: Afebrile vital signs are stable Physical exam is unchanged Diagnostic data has been reviewed ASST: 1. Acute coronary syndrome 2. End-stage renal disease 3. Sinus pauses with sinus arrhythmia 4. Fever PLAN: 1. Cardiac catheterization the morning 2. Hemodialysis after cardiac catheterization 3. May hold beta-max 4. Panculture and antipyretics with antibiotics pending cardiac catheterization 5. GI and DVT prophylaxis
[2019-03-27] MEDS: SERTRALINE HCL 50 MG TAB PO SCH (09:13)
[2019-03-27] MEDS: ASPIRIN 325 MG TAB PO SCH (09:14)
--- NOTE | 2019-03-27 09:18 | EKG ---
Test Date: 2019-03-26 Test Time: 22:59:49 Manager Android: RT MEASUREMENT RESULTS: Intervals: Rate: 93 [place]: 156 QRSD: 178 QT: 470 QTc: 584 [place]: P: 47 [place]: 156 QRS: -63 T: 79 INTERPRETIVE STATEMENTS: Normal sinus rhythm Right bundle branch block Left axis Abnormal ECG Compared to ECG 03/26/2019 01:05:47 Myocardial infarct finding no longer present Electronically Signed On 03-27-19 09:17:49 CDT by Jong Cooper
--- NOTE | 2019-03-27 09:21 | EKG ---
Test Date: 2019-03-25 Test Time: 22:47:25 Application Development Specialist: AYDIN MEASUREMENT RESULTS: Intervals: Rate: 85 [place]: 188 QRSD: 180 QT: 496 QTc: 590 [place]: P: 76 SC: 188 QRS: -62 T: 78 INTERPRETIVE STATEMENTS: Normal sinus rhythm Right bundle branch block Left axis Cannot rule out Septal infarct, age undetermined Abnormal ECG Compared to ECG 03/25/2019 03:41:44 Myocardial infarct finding still present Electronically Signed On 03-27-19 09:20:57 CDT by Jong Cooper
--- NOTE | 2019-03-27 09:21 | EKG ---
Test Date: 2019-03-26 Test Time: 01:05:47 Wastewater Treatment Engineer: AYDIN MEASUREMENT RESULTS: Intervals: Rate: 89 [place]: 190 QRSD: 184 QT: 476 QTc: 579 [place]: P: 92 UT: 190 QRS: -64 T: 91 INTERPRETIVE STATEMENTS: Normal sinus rhythm Right bundle branch block Left axis Cannot rule out Septal infarct, age undetermined Abnormal ECG Compared to ECG 03/25/2019 22:47:25 No significant changes Electronically Signed On 03-27-19 09:20:36 CDT by Jong Cooper
[2019-03-27] MEDS ORDERED: NA CHLORIDE 0.9% 1,000 ML IV PRN (10:28)
[2019-03-27] MEDS ORDERED: ALBUMIN HUMAN 25% 50 ML IV SCH (11:00)
[2019-03-27] MEDS ORDERED: MIDAZOLAM HCL 2 MG/2 ML INJ ONE (12:48)
[2019-03-27] MEDS ORDERED: HEPA 1000U/500MLS 2,000 UNIT/1,000 ML BAG IV ONE (12:48)
[2019-03-27] MEDS ORDERED: ATROPINE SULF 1 MG/10 ML SYR IV ONE (12:48)
[2019-03-27] MEDS ORDERED: FENTANYL CITR 100 MCG/2 ML ONE (12:48)
[2019-03-27] MEDS ORDERED: NA CHLORIDE 0.9% 500 ML ONE ×2 (12:49→13:46)
[2019-03-27] MEDS ORDERED: NA CHLORIDE 0.9% 0 ML ONE (12:49)
--- NOTE | 2019-03-27 13:55 | ECHO ---
HEIGHT: 5 ft 6 in WEIGHT: 159 lb 3.2 oz DATE OF STUDY: 03/27/[address]: Connie Cervantes MD 2-DIMENSIONAL: YES M.MODE: YES DOPPLER: YES COLOR FLOW: YES TDS: NO PORTABLE: NO DEFINITY: NO BUBBLE STUDY: NO DIAGNOSIS: CHEST PAIN/ RULE OUT ACUTE CORONARY SYNDROME CARDIAC HISTORY: CATHERIZATION: YES SURGERY: CABG PROSTHETIC VALVE: AORTIC VALVE REPLACEMENT PACEMAKER: NO MEASUREMENTS (cm) DIASTOLIC (NORMALS) SYSTOLIC (NORMALS) IVSd 1.2 (0.6-1.2) LA Diam 4.3 (1.9-4.0) LVEF 42% LVIDd 4.9 (3.5-5.7) LVIDs 3.9 (2.0-3.5) %FS 21% LVPWd 1.2 (0.6-1.2) Ao Diam 2.7 (2.0-3.7) 2 DIMENSIONAL ASSESSMENT: RIGHT ATRIUM: NORMAL LEFT ATRIUM: DILATED RIGHT VENTRICLE: NORMAL LEFT VENTRICLE: NORMAL TRICUSPID VALVE: NORMAL MITRAL VALVE: MITRAL ANNULAR CALCIFICATION PULMONIC VALVE: NORMAL AORTIC VALVE: BIOPRESTHETIC, WELL SEEN PERICARDIAL EFFUSION: NONE AORTIC ROOT: NORMAL LEFT VENTRICULAR WALL MOTION: GLOBAL HYPOKINESIS. DOPPLER/COLOR FLOW: MILD AORTIC, MITRAL AND TRICUSPID REGURGITATION. NORMAL RIGHT VENTRICULAR SYSTOLIC PRESSURE. MODERATE AORTIC STENOSIS. PEAK/MEAN 63/42mmHg. ESTIMATED AORTIC VALVE AREA. 1.1 CENTIMETERS SQUARED. COMMENTS: MILDLY DEPRESSED LEFT VENTRICULAR EJECTION FRACTION. DILATED LEFT ATRIUM. BIOPROSTHETIC AORTIC VALVE WITH MODERATE AORTIC STENOSIS, MILD AORTIC REGURGITATION. MILD MITRAL AND TRICUSPID REGURGITATION. TECHNOLOGIST: ERIC DAVIS
--- NOTE | 2019-03-27 17:11 | P.PN ---
Subjective Date of Service: 03/27/19 Chief Complaint: non ST-elevation myocardial infarction; acute coronary syndrome Patient seen and examined at bedside. No family at bedside. Chart reviewed and case discussed with Nursing staff and Dr. tucker. Patient admitted for chest pain, NSTEMI. No chest pain noted overnight, per patient. Denies any chest pain at the time of my exam. Denies any sob, n/v, dizziness, headache, vision changes. She is pending cardiac catheterization today then dialysis session Review of Systems 10-point ROS is otherwise unremarkable Physical Examination - Vital Signs Temperature: 97 F Blood Pressure: 97/56 Pulse: 74 Respirations: 20 Pulse Ox (%): 98 - Physical Exam General: Alert, In no apparent distress, Oriented x3 HEENT: Atraumatic, PERRLA, EOMI Neck: Supple, JVD not distended Respiratory: Clear to auscultation bilaterally, Normal air movement Cardiovascular: Regular rate/rhythm, Normal S1 S2 Gastrointestinal: Normal bowel sounds, No tenderness Musculoskeletal: No tenderness Integumentary: No rashes Neurological: Normal speech, Normal tone, Normal affect Lymphatics: No axilla or inguinal lymphadenopathy Assessment And Plan - Current Problems (Diagnosis) (1) NSTEMI (non-ST elevated myocardial infarction) Current Visit: Yes Status: Acute Plan: Patient with typical chest pain, elevated troponin and a positive lexiscan in . Cadriac cath was avoided at that time due to Renal failure. As she has now been started on HD, plan is for cardiology to cath her tomorrow before her dialysis session. ECHO with ejection fraction 42%, dilated. She does have a bioprosthetic aortic valve in place with aortic stenosis. Discussed case with Dr. Cooper. Recommends to have outpatient follow up in [place] in regards to aortic stenosis of prosthetic valve peak Continue IV morphine, nitro prn Continue heparin drip (2) ESRD (end stage renal disease) Current Visit: Yes Status: Chronic Plan: Nephrology consulted Patient with recently started HD Continue dialysis, per nephrology. Pending session today (3) Hypertension Onset Date: 11/02/16 Current Visit: No Status: Chronic Plan: BP on the lower end. Will restart BP medications as needed and tolerated. Qualifiers: Hypertension type: essential hypertension (4) Lupus Onset Date: 11/02/16 Current Visit: No Status: Chronic Plan: Continue home medications. Qualifiers: Systemic lupus erythematosus type: unspecified Systemic lupus erythematosus organ involvement: unspecified Qualified Code(s): M32.9 - Systemic lupus erythematosus, unspecified (5) Anemia Onset Date: 11/02/16 Current Visit: No Status: Chronic Qualifiers: Anemia type: other cause Other causes of anemia: chronic disease, kidney Qualified Code(s): N18.9 - Chronic kidney disease, unspecified (6) Depression Onset Date: 11/02/16 Current Visit: No Status: Chronic Plan: Stable, continue home medications Denies SI or HI Qualifiers: Depression Type: unspecified Qualified Code(s): F32.9 - Major depressive disorder, single episode, unspecified (7) H/O aortic valve replacement Current Visit: Yes Status: Acute Plan: Patient the bioprosthetic valve, noted to have your deck stenosis on echo. Discussed case with Dr. Cooper, recommends outpatient followup for the aortic stenosis in [place]. - Plan DVT prophylaxis: Heparin drip GI prophylaxis: None Diet: Renal/heart healthy Disposition: Status post cardiac catheterization 03/27/2019, pending dialysis session today
[2019-03-27] MEDS: EPOETIN ALFA 10,000 UNIT/ML VIAL SQ SCH (18:07)
[2019-03-27] MEDS ORDERED: NITROGLYCERIN 0.4 MG/TAB SL PRN (23:02)
[2019-03-28] MEDS ORDERED: FENTANYL CITR 100 MCG/2 ML IV ONE
--- NOTE | 2019-03-28 00:18 | OP ---
Surgeon: Jong Cooper MD Additional Attending Physician: Dr. Cervantes. Procedure: Left heart catheterization with coronary angiography. Procedure Findings: The patient's coronary arteries are in very good shape. There is no significant stenosis. There is a left internal mammary artery bypass graft that is widely patent; it goes to th e very distal part of the LAD. There is no significant stenosis in the graft and there is only modes t stenosis before the graft, about 50%. There is no stenosis in the left main, circumflex, or right coronary arteries. The left ventriculogram was not done. She has a bioprosthetic aortic valve that is very stenotic and we did not attempt to cross it. I suspect all of her symptoms are due to the va lve and not coronary arteries. She will be evaluated for that with the MRI and transesophageal echoc ardiogram. Procedure In Detail: The patient had evidence of non-ST elevation [place]. She is brought to the cardiac cathode maker in a fasting state, sedated with Versed and fentanyl. Prepared and draped. Right femoral approach was used. We anesthetized the tissues over the right femoral artery using 1% lidocaine, abo ut 18 cc were used. The artery was entered using an 18-gauge needle, cannulated with a short J-wire. A 4-Liberian sheath was placed and we did the remainder of the cardiac cath using the 4-Liberian sheath . We used a JR4 to angiogram the right coronary and the left internal mammary. A JL4, JL5, and mult ipurpose failed to engage the left main, mostly because one of the struts from the valve made it diff icult to engage the left main. We did engage the left main with an Amplatz AL2 and obtained interpre table good angiograms. At the end of the procedure, catheters were withdrawn. A sheath shot was don e through the 4-Liberian sheath. Adequate anatomy was seen and we elected to close the arteriotomy usi ng an Angio-Seal device. Complications From The Procedure: None. Estimated Blood Loss: 20 cc. Dice Table Operator: Diane Chester. JIN/HECTOR Voice ID: [id number] Report ID: [id number]
--- NOTE | 2019-03-28 04:07 | PN ---
Date of Progress Note: 03/27/2019 Chief Complaint: End-stage renal disease. History Of Present Illness: The patient underwent cardiac catheterization today. Subsequently the p atient is scheduled for dialysis to obtain metabolic clearance and prevent [id number] hyperkale otto. Electrolytes have been stable, potassium was 4.6. The patient has end-stage renal disease. She has been initiated on dialysis. Azotemia in good contr ol. BUN is 46. Review of Systems: Denies fever, chills. Physical Examination: Lungs: Few crackles at bases. Heart: S1, S2. Abdomen: Soft, benign. Extremities: Slight edema. Impression And Plan: 1.Mild fluid overload. The patient does not have any respiratory distress. Continue p.o. fluid res triction, low-sodium diet. The patient will have dialysis with ultrafiltration today to treat volume overload. 2.Anemia, chronic kidney disease. Continue BERNARD, monitor. Hemoglobin 11. 3.Renal osteodystrophy. Continue renal diet and binders. 4.Coronary artery disease. The patient underwent cardiac catheterization. The patient will have dialysis to control electrolytes and azotemia. EB/MODL Voice ID: [id number] Report ID: [id number]
[2019-03-28] MEDS: METOPROLOL TAR 25 MG TAB PO SCH ×2 (05:39→18:00)
[2019-03-28] MEDS: ASPIRIN 325 MG TAB PO SCH (09:01)
[2019-03-28] MEDS: SERTRALINE HCL 50 MG TAB PO SCH (09:01)
[2019-03-28] MEDS: predniSONE 20 MG TAB PO SCH ×2 (18:07→19:58)
--- NOTE | 2019-03-28 19:25 | PN ---
Date of Progress Note: 03/28/2019 Subjective: The patient was seen and examined. Chart reviewed and case discussed with RN and Dr. Braden. The patient is still complaining of chest pressure on and off and cardiac catheterization yesterday with normal coronaries. The patient has been tolerating dialysis well. Code Status: Full. Physical Examination: Vital Signs: Temperature 97.7, heart rate 88, blood pressure 100/58, respirations 18, O2 97% on room air. General: Awake, alert, oriented x3. Elderly female, in some mild distress. CV: S1, S2. Regular rate and rhythm, 3/6 holosystolic murmur present. Peripheral edema is also present. Respiratory: Diminished breath sounds. No wheezing or stridor. No use of accessory muscles. Gastrointestinal: Abdomen is soft, nontender, nondistended. Positive bowel sounds. No guarding or rigidity. Extremities: No clubbing or cyanosis. Trace pedal edema. Neurologic: Nonfocal. Laboratory Data: Labs are pending at this time. Impression And Plan: A 68-year-old female with: 1. Mct-HA-oskkwmshh myocardial infarction status post cardiac catheterization , appears to have normal coronaries. Echo shows EF of 42% dilated and found to have aortic stenosis of the bioprosthetic aortic valve. The patient will need to follow up as an outpatient in [place] for aortic valve replacement and transesophageal echocardiogram. 2. End-stage renal disease, on dialysis. We will continue dialysis for now. Nephrology on board. 3. Essential hypertension. Blood pressure currently on the low side. We will continue home medications as tolerated. 4. Systemic lupus erythematosus, stable. 5. Anemia due to anemia of chronic kidney disease. We will continue to monitor H and H, stable. 6. Depression. Major depressive disorder, stable. 7. History of aortic valve replacement, bioprosthetic. The patient has stenosis on echo and cardiac catheterization. The patient will need aortic valve replacement as an outpatient. Plan: The patient is still having chest pain, had another episode today. We will repeat EKG. Likely, her symptoms are due to the aortic valve stenosis. We will discharge once more clinically stable. To follow up as an outpatient for her valve replacement. 8. RBBB. SA/MODL Voice ID: [id number] Report ID: [id number] MTDD
--- NOTE | 2019-03-28 20:01 | CON ---
Date of Consultation: 03/28/2019 Subjective: The patient admitted this with chest pain, found to have hypertension over loaded. The patient was dialyzed yesterday. Physical Examination: Vital Signs: When I saw the patient, blood pressure of 100/58, pulse of 88, afebrile. Chest: Clear to auscultation. Heart: S1, S2. Regular. Abdomen: Soft, nontender. Extremities: No edema. Laboratory Data: H and H 08/11.1. Sodium 135, potassium 4.6, bicarb 23, BUN 46, creatinine 6, calciu m 8.9, magnesium 2.1. Medications: Current medications the patient on include: 1.Aspirin. 2.Ceftriaxone. 3.Epogen. 4.Metoprolol 12.5. 5.Alprazolam. 6.Zoloft. 7.Fentanyl. Assessment And Plan: 1.End-stage renal disease. We will continue the patient on dialysis Wednesday, Wednesday, Wednesday. The patient is going to be scheduled for dialysis tomorrow. 2.Hypertension, controlled, optimal. We will continue current medication. 3.Anemia of chronic kidney disease. Continue Epogen. 4.Chest pain. Follow up with Cardiology. Patient possible has pleurisy. I discussed with Dr. Simms. We will start the patient on prednisone and we will send for complement and anti-DNA to see if there is any acute activation for her lupus. ZULAY Voice ID: [id number] Report ID: [id number]
[2019-03-29] MEDS: METOPROLOL TAR 25 MG TAB PO SCH ×2 (05:59→17:34)
[2019-03-29 06:33] LABS: Absolute Lymphocytes (CBC) 0.2 K/uL (0.7-4.9); Absolute Monocytes 0.1 K/uL (0.1-1.3); Absolute Neutrophil 3.4 K/uL (1.8-8.0); Basophils % 0.3 % (0-1.3); Lymphocytes % 6.5 % (15.3-44.8); MPV 9.6 fL (7.6-11.3); Monocytes % 2.7 % (3.3-12.3); RBC Red Blood Cell Count 2.69 M/uL (3.86-4.86)
[2019-03-29 07:06] LABS: Bilirubin Total 0.3 mg/dL (0.2-1.0); Potassium 4.7 mmol/L (3.5-5.1); Protein, Total 6.4 g/dL (6.4-8.2)
--- NOTE | 2019-03-29 07:52 | EKG ---
Test Date: 2019-03-28 Test Time: 13:16:45 Maintenance Representative: MAHIN MEASUREMENT RESULTS: Intervals: Rate: 89 GA: 172 QRSD: 194 QT: 486 QTc: 591 [place]el: P: 70 GA: 172 QRS: -62 T: 96 INTERPRETIVE STATEMENTS: Normal sinus rhythm Right bundle branch block Left axis Abnormal ECG Compared to ECG 03/26/2019 22:59:49 no significant change from previous ECG Electronically Signed On 03-29-19 07:52:14 CDT by Jong Cooper
[2019-03-29] MEDS: SERTRALINE HCL 50 MG TAB PO SCH (09:39)
[2019-03-29] MEDS: PANTOPRAZOLE 40MG TABLET PO SCH (09:39)
[2019-03-29] MEDS: ASPIRIN 325 MG TAB PO SCH (09:40)
[2019-03-29] MEDS: predniSONE 20 MG TAB PO SCH (09:40)
[2019-03-29 10:04] LABS: Anisocytosis 1+; Blood Morphology Comment NOTED (NOT SEEN); Platelet Estimate DECR; Urine White Blood Cell Casts OK
[2019-03-29] MEDS: METHYLPREDNISOLONE 40 MG INJ IV SCH ×2 (12:29→16:42)
[2019-03-29] MEDS ORDERED: NA CHLORIDE 0.9% 250 ML ONE (15:48)
[2019-03-29] MEDS: EPOETIN ALFA 10,000 UNIT/ML VIAL SQ SCH (17:11)
--- NOTE | 2019-03-29 18:37 | PN ---
Date of Progress Note: 03/29/2019 Subjective: The patient is seen and examined. Chart reviewed and case discussed with RN. The patient was scheduled to go for dialysis this morning; however, while in the restroom, had another episode of chest pain and shortness of breath. Medications: List reviewed. Physical Examination: Vital Signs: Temperature 97.1, heart rate 90, blood pressure 98/60, respirations 18, O2 98% on room air. General: Awake, alert, oriented x3. Elderly female, ill appearing. CV: S1, S2. Regular rate and rhythm. Peripheral pulses present. Respiratory: Diminished breath sounds. Some crackles heard. No wheezing or stridor. Gastrointestinal: Abdomen is soft, nontender, and nondistended. Positive bowel sounds. Extremities: No clubbing, cyanosis, or edema. Neurologic: Nonfocal. Laboratory Data: Sodium 137, potassium 4.7, chloride 101, CO2 20, BUN 40, creatinine 5.81, glucose 192, and calcium 9.2. AST 42, ALT 10, albumin 3. WBC 3.8, H and H 8.2 and 25, platelets 94, neutrophils 90%. Blood cultures, no growth to date, one bottle growing alpha-hemolytic strep which is likely skin contaminant. Stool occult blood positive. Assessment And Plan: A 68-year-old female with: 1. Non-ST segment elevation myocardial infarction status post cardiac catheterization with normal coronaries, EF of 42%. The patient does have aortic stenosis of the bioprosthetic aortic valve. 2. Aortic stenosis of bioprosthetic aortic valve. The patient will need to follow up as an outpatient for aortic valve replacement and ANYA. The patient's shortness of breath is likely stemming from her aortic stenosis. 3. End-stage renal disease, on hemodialysis. We will continue as scheduled. Appreciate Dr. Cerda's input. 4. Essential hypertension. Blood pressure currently on the low side, likely due to dialysis. We will adjust medications as necessary. 5. Systemic lupus erythematosus. The patient's pain may be pleuritic in nature related to her lupus. Complement levels and anti-stranded DNA have been ordered. The patient does follow up with event organizer as an outpatient. 6. Anemia of chronic disease secondary to chronic kidney disease. The patient 's H and H have been steadily declining. Her hemoccult is positive. We will continue to monitor H and H and transfuse as needed for hemoglobin less than 7 due to the patient's recent [place] threshold for transfusion will be higher than usual. The patient has had iron studies done earlier this month with very low iron levels at 27. The patient also needs workup with GI including colonoscopy and EGD as her hemoccult is positive. 7. Major depressive disorder, stable. Continue SSRI. 8. Deep venous thrombosis prophylaxis. We will hold heparin due to thrombocytopenia. 9. Thrombocytopenia. Platelet levels down to 94. 10. RBBB Plan: Continue dialysis. Follow up on complement levels. Monitor H and H. GI evaluation if available for stool occult positive blood. /HECTOR Voice ID: [id number] Report ID: [id number] MIGUEL
[2019-03-29 19:07] LABS: Hematocrit 30.9 % (36.0-45.0)
[2019-03-29] MEDS ORDERED: EPOETIN ALFA 10,000 UNIT/ML VIAL IV SCH (23:00)
[2019-03-30] MEDS: METHYLPREDNISOLONE 40 MG INJ IV SCH ×3 (00:48→17:27)
--- NOTE | 2019-03-30 03:38 | PN ---
Date of Progress Note: 03/29/2019 Subjective: The patient was admitted with chest pain. Workup including cardiac cath was negative. The patient is still complaining of chest pain and chest tightness. Physical Examination: Vital Signs: Blood pressure 98/60, pulse of 90, afebrile. Chest: Clear to auscultation. Heart: S1, S2, regular. Abdomen: Soft, nontender. Extremities: Trace edema. Laboratory Data: H and H 8.2/25, WBC 3.8, platelets of 94. Sodium 137, potassium 4.7, bicarb 20, BU N 40, creatinine 5.8, calcium 9.2. Urinalysis, no hematuria. Complement and double strand still pen ding. Current Medications: The patient on its include; 1.Aspirin. 2.Albumin. 3.Epogen. 4.Metoprolol 12.5. 5.Nitroglycerin. 6.Zoloft. 7.Pantoprazole. 8.Morphine. 9.Solu-Medrol. Assessment And Plan: 1.End-stage renal disease. We will continue the patient on dialysis; Wednesday, Wednesday, Wednesday. 2.Secondary hyperpara, stable. 3.Hypertension, currently hypotension. Continue holding blood pressure medication. 4.Chest pain. Workup including a cardiac cath was negative. Possible pleurisy. We will follow up the complement. The patient was started on Solu-Medrol. We will follow up response. 5.Anemia secondary to renal disease. Continue transfusion today and we will continue Epogen. ZULAY Voice ID: [id number] Report ID: [id number]
[2019-03-30 05:25] LABS: Absolute Lymphocytes (CBC) 0.6 K/uL (0.7-4.9); Absolute Monocytes 0.4 K/uL (0.1-1.3); Absolute Neutrophil 5.8 K/uL (1.8-8.0); Basophils % 0.2 % (0-1.3); Hematocrit 29.9 % (36.0-45.0); Lymphocytes % 8.9 % (15.3-44.8); MPV 9.6 fL (7.6-11.3); Monocytes % 5.3 % (3.3-12.3); RBC Red Blood Cell Count 3.41 M/uL (3.86-4.86)
[2019-03-30 05:42] LABS: Bilirubin Total 0.3 mg/dL (0.2-1.0); Potassium 4.7 mmol/L (3.5-5.1); Protein, Total 6.3 g/dL (6.4-8.2)
[2019-03-30] MEDS: METOPROLOL TAR 25 MG TAB PO SCH ×2 (05:47→17:27)
[2019-03-30] MEDS: PANTOPRAZOLE 40MG TABLET PO SCH (05:47)
[2019-03-30 07:11] VITALS: BMI 25.5
[2019-03-30] MEDS: ASPIRIN 325 MG TAB PO SCH (08:12)
[2019-03-30] MEDS: SERTRALINE HCL 50 MG TAB PO SCH (08:13)
[2019-03-30] MEDS ORDERED: POLYETHYL GLY 3350 17 GM/DOSE PO PRN (12:15)
--- NOTE | 2019-03-30 13:13 | P.PN ---
Subjective Date of Service: 03/30/19 Chief Complaint: non ST-elevation myocardial infarction; acute coronary syndrome Subjective: No new changes ESRD started recently, had chest pain after discharge NSTEMI , S/P cardiac cath BP improves HD MWF anemia with guiac +ve, pending Gi evaluation Physical Examination - Vital Signs Temperature: 97 F Blood Pressure: 115/70 Pulse: 86 Respirations: 18 Pulse Ox (%): 97 - Physical Exam General: In no apparent distress, Oriented x3 HEENT: Atraumatic Neck: Supple, Without JVD or thyroid abnormality Respiratory: Clear to auscultation bilaterally, Normal air movement Cardiovascular: Regular rate/rhythm, Normal S1 S2, No gallops, No rubs, Edema Gastrointestinal: Normal bowel sounds, Soft and benign Integumentary: No rashes Assessment And Plan - Current Problems (Diagnosis) (1) Acute coronary syndrome Current Visit: Yes Status: Acute (2) ESRD (end stage renal disease) Current Visit: Yes Status: Chronic - Plan ESRD on HD MWF via tunneled cath HD as per schedule renal dose meds metabolic bone disease cont binders Chest Pain elevated trop possibly due to pleurisy/ pericarditis started from steroids S/p cardiac cath, no CAD Anemia hb dropped , FOBT +ve pending Gi evaluation on BERNARD SLE started on steroids for chest pain as it could be pleurisy resume home meds HTN Bp is borderline hold meds
[2019-03-30] MEDS ORDERED: COLCHICINE 0.6 MG TAB PO PRN (15:58)
--- NOTE | 2019-03-30 19:57 | PN ---
Date of Progress Note: 03/30/2019 The patient was seen and examined, chart reviewed and case discussed with RN and Dr. Braden. The patient still having some episodes of chest pain. However , according to nursing staff, they have not reported it to the nurses. The patient did complain of some constipation and abdominal distention. The patient and daughter requesting transfer. I explained to them that transfer is not appropriate. Her valve replacement is an outpatient workup procedure, however, the patient and daughter are adamant. I explained to them that likely if transfer was even initiated, will be denied. Medications: List reviewed. Physical Examination: Vital Signs: Temperature 97, heart rate 86, blood pressure 115/70, respirations 18, O2 97% on room air. General: Awake, alert, oriented x3, in some mild distress, elderly female. CV: S1, S2. Peripheral pulses present. Respiratory: Some diminished breath sounds, no wheezing. Gastrointestinal: Abdomen is soft, nontender, nondistended. Positive bowel sounds. Extremities: No clubbing, cyanosis, edema. Neurologic: Nonfocal. Laboratory Data: Sodium 137, potassium 4.7, chloride 103, CO2 27, BUN 29, creatinine 4, glucose 176, calcium 9. WBC 6.8, H and H 10.1 and 29.9, platelets 124. Assessment: A 68-year-old female with: 1. Non-ST elevation myocardial infarction, status post cardiac cath with normal coronaries, EF 42%. 2. Aortic stenosis of bioprosthetic aortic valve. The patient was recommended to follow up as an outpatient by Cardiology for TEVAR and ANYA. This is the etiology of her shortness of breath. The patient, however, requesting transfer to [place]. 3. End-stage renal disease, on hemodialysis. We will continue as scheduled, appreciate Nephrology input. 4. Essential hypertension. Blood pressure currently on the normotensive to hypotensive side. We will monitor. 5. Systemic lupus erythematosus. The patient seems to have chest pain related to her lupus. Workup including complement levels and double-stranded DNA are pending, improved with steroids. The patient is to follow up with Rheumatology. We will give trial of colchicine. 6. Anemia of chronic disease, secondary to chronic kidney disease. The patient had a PRBC transfusion yesterday with dialysis. Hemoglobin is now stable around 10. The patient received 2 units. We will continue to monitor. I spoke with Dr. Hoskins with GI. He does not recommend any colonoscopy or EGD at this time due to her heart issues. He recommends outpatient followup. 7. Major depressive disorder, stable. Continue SSRI. 8. Thrombocytopenia. Platelet levels are improving, currently at 124. 9. Deep venous thrombosis prophylaxis. Heparin held due to gastrointestinal bleed and low hemoglobin as well as low platelets. Plan: We will attempt transfer, discharge once chest pain is better controlled. /HECTOR Voice ID: [id number] Report ID: [id number] MIGUEL
[2019-03-30] MEDS ORDERED: DOCUSATE NA 100 MG CAP PO SCH (21:00)
[2019-03-30 21:58] VITALS: BP 154/70; TEMP 97
[2019-03-30 22:10] VITALS: O2SAT 95
--- NOTE | 2019-04-01 15:32 | DS ---
Date of Discharge: 03/30/2019 Consultants: Dr. Cooper with Cardiology, Dr. Angie Cerda with Nephrology and Dr. Hoskins with [facility]. Procedures: Cardiac catheterization on 03/27/2019 with essentially normal coronaries, aortic stenosi s which is a bioprosthetic valve. Admitting Diagnoses: 1.Acute coronary syndrome. 2.Coronary artery disease. 3.History of aortic valve replacement. 4.Hypertension. 5.Lupus. 6.Chest pain. 7.End-stage renal disease, on dialysis. Discharge Diagnoses: 1.NSTEMI status post cardiac catheterization. 2.Aortic stenosis of bioprosthetic aortic valve. 3.End-stage renal disease, on hemodialysis. 4.Essential hypertension. 5.Systemic lupus erythematosus. 6.Anemia of chronic disease secondary to chronic kidney disease, status post transfusion. 7.Major depressive disorder. 8.Thrombocytopenia. Hospital Course: The patient is a 68-year-old female, who was recently discharged from the hospital, comes back in again with chest pain radiating to the left arm, found to have acute coronary syndrome . The patient has a history of coronary artery bypass graft. The patient has comorbid conditions in cluding end-stage renal disease on dialysis, lupus, anemia, and history of aortic valve replacement. The patient was taken for cardiac catheterization, placed on chest pain guidelines. Cardiac cath sh owed findings as mentioned above. Echocardiogram showed EF of 42%. Dr. oCoper and Dr. Braden saw t he patient. Initially, recommendation was for outpatient evaluation for transaortic valve replacemen t; however, due to her recurrent chest pain and non-abating symptoms the patient was then transferred to [facility] per Dr. Cooper's recommendation. The patient was also seen by [facility] for her end-stage renal disease. She tolerated the dialysis well. The patient was having re current pain and she was started on steroids as this was thought to be due to her lupus and she did h ave some improvement; however, not completely resolved. Complement and double-stranded DNA were sent off, still pending. The patient also had a drop in her hemoglobin requiring transfusions. Her Hemo ccult blood was positive. Dr. Hoskins with GI was consulted, however, he did not recommend colonoscop y or EGD at this time due to her heart condition and recommended outpatient followup. The patient wa s then accepted to [facility] and was transferred in a stable condition. Total time spent transferring the patient was 43 minutes. Please see progress note dictated on day o f discharge for physical exam findings. /HECTOR Voice ID: [id number] Report ID: [id number]
--- NOTE | 2019-04-11 08:15 | CON ---
Date of Consultation: 03/30/2019 Reason For Consultation: Anemia. Hemoglobin 8.2. History Of Present Illness: The patient is white female with history of stenosis, hyperte nsion, coronary artery disease status post CABG 1-vessel, lupus, chronic renal disease, anemia of chr onic disease. The patient presented to the hospital due to [id number] elevation myocardial infar ction, acute myocardial syndrome as per chart review. The patient was noted to have decrease in hemo globin while in the hospital down to 8.2. Patient also has a history of end-stage renal disease on d ialysis. She also has a history of aortic valve replacement. Heart catheterization is planned, but has not been done yet. Patient noted to have anemia with hemoglobin down. The patient is chest pain -free now. She has a bioprosthetic aortic valve with last area measured at 1.3 cm square. Aortic va lve replacement and CABG were done 2015. In fact, her valve area is decreasing bioprosthetic valve. The patient has heme-positive stool as well. She has also been diagnosed with pleurisy plus secondary lupus, but her heart valve area has decreased to 1.3 cm square. She also reports right and left lower quadrant pain, some chest pain as well; seems the chest pain thao s improved since her hospitalization cardiology consultation. Past Medical History: Consistent with aortic stenosis status post aortic valve replacement. Current ly, aortic valve area is 1.3 cm square. Hypertension, coronary artery disease status post CABG 1-ves adele, lupus, chronic renal disease, now starting hemodialysis, anemia of chronic disease in the past, depression, breast biopsies, and D and C. Medications: Medications as an outpatient include cyclosporine, Flovent, aspirin, Lipitor, calcitrio l, diltiazem, febuxostat, Hydroxychloroquine, metoprolol, Zoloft, sodium bicarbonate. Allergies: NKDA. Social History: She is . One daughter. No tobacco. No alcohol. Family History: Father of coronary disease, myocardial infarction, also when he was having a CABG procedure for his heart. He also had chronic kidney disease. Mother of Dayami Gehri g disease, ALS. Review of Systems: The patient has chest pain, which seems it has gotten better, but she was diagnosed with pleurisy sec ondary to lupus aortic stenosis or bowel issue she had replacement or other. S he has right and left lower quadrant pain and she had heme-positive stool, though she denies any leonides na, hematochezia, hematemesis, coffee-grounds emesis, hematuria, dysuria, , polydipsia. No nausea, vomiting. She does have some constipation, but no diarrhea. No depression/anxiety. Physical Examination: Vital Signs: The patient is 5 feet 6 inches, 158 pounds. BMI of 26 kg/meter square. Diagnostic Data: the patient has a white count of 6.8, hemoglobin of 10.1, hematocrit 30, MCV of 88, platelet count of 124, polys of 86%, lymphocytes 9%, monocytes 5% PTT of 51.8 had a PT of 12.6, INR of 1.1. On , she has a sodium 137, potassium 4.7, chloride 103, bicarb 27, BUN of 29, creatinine of 4.0, glucose 176, calcium of 9.0, total bilirubin 0.3, AST of 37, ALT of 12 , alkaline phosphatase 99, total protein 6.3, albumin 3.0. On , she had triglycerides 72, cholesterol 89, LDL 34, HDL 41. Lipase elevated on the eleventh of 144. Troponin I is elevated at 3 .76 and 8.71 on the ; magnesium 2.2, calcium 8.9 on the 11th. UA: 1+ blood, 2+ protein, otherwi se negative. Chest x-ray on the was negative. Impression: 1.Anemia. Hemoglobin down to 8.2 on the , now back up to 10.1 today, transfusion. She denies a ny melena, hematochezia coffee-grounds emesis. Colonoscopy and EGD back in 2008 were negat amrik by . She has end-stage renal disease, on hemodialysis, with glucose which could also b e contributing to this anemia as well as possible infection, sepsis, or contributing to th is chronic renal disease. 2.Heme-positive stool. 3.Right and left lower quadrant pain. 4.Chest pain, could be secondary to multiple factors such as Ind-PA-ajzdlbhof myocardial infarction versus pleurisy versus aortic valve issues. 5.Aortic stenosis status post aortic valve replacement with area currently 1.3 cm square with dyspne a on exertion and shortness of breath today, going to the bathroom and back while in the room attendi ng the patient, indicative of possible continued aortic valve issues. 6.Pleurisy secondary to lupus. 7.Constipation. Recommendation: 1.Colonoscopy/EGD stable. The patient would be a high-risk candidate for procedures ____ cardiac history. 2.Await cardiac further workup and evaluation. 3.Cardiopulmonary clearance. 4.Anusol therapy since the patient said she has some hemorrhoid complaints. 5.MiraLAX therapy for constipation. TYLER/HECTOR Voice ID: [id number] Report ID: [id number]
== END 2019-03-30 23:30 | disposition short-term general hospital (02) | DRG 280 ==
LOC: ER 02:30 → 2ND 04:39 → OBSVTOIN 09:06
PROVIDERS: ADMIT Hospitalist; ATTEND Family Medicine
PROC: 4A023N7 Measurement of Cardiac Sampling and Pressure, Left Heart, Percutaneous Approach (ICD-10-PCS; principal; 2019-03-27)
PROC: B2181ZZ Fluoroscopy of Left Internal Mammary Bypass Graft using Low Osmolar Contrast (ICD-10-PCS; 2019-03-27)
PROC: B2111ZZ Fluoroscopy of Multiple Coronary Arteries using Low Osmolar Contrast (ICD-10-PCS; 2019-03-27)
PROC: 5A1D70Z Performance of Urinary Filtration, Intermittent, Less than 6 Hours Per Day (ICD-10-PCS; 2019-03-27)
PROC: 30243N1 Transfusion of Nonautologous Red Blood Cells into Central Vein, Percutaneous Approach (ICD-10-PCS; 2019-03-29)
DX: I21.4 Non-ST elevation (NSTEMI) myocardial infarction (principal); N18.6 End stage renal disease; I12.0 Hypertensive chronic kidney disease with stage 5 chronic kidney disease or end stage renal disease; T82.857A Stenosis of other cardiac prosthetic devices, implants and grafts, initial encounter; K92.1 Melena; I25.119 Atherosclerotic heart disease of native coronary artery with unspecified angina pectoris; Z99.2 Dependence on renal dialysis; E87.70 Fluid overload, unspecified; M32.9 Systemic lupus erythematosus, unspecified; I45.10 Unspecified right bundle-branch block; R09.1 Pleurisy; E78.5 Hyperlipidemia, unspecified; D63.1 Anemia in chronic kidney disease; D69.6 Thrombocytopenia, unspecified; E88.89 Other specified metabolic disorders; F32.9 Major depressive disorder, single episode, unspecified; K59.00 Constipation, unspecified; Z79.82 Long term (current) use of aspirin; Z95.1 Presence of aortocoronary bypass graft; Z95.2 Presence of prosthetic heart valve; Y83.2 Surgical operation with anastomosis, bypass or graft as the cause of abnormal reaction of the patient, or of later complication, without mention of misadventure at the time of the procedure
CPT/HCPCS: 36415; 36430; 71045; 80048; 80053; 80061; 80076; 81001; 82274; 82962; 83690; 83735; 83880; 84484; 85014; 85018; 85025; 85610; 85730; 86160; 86225; 86850; 86900; 86901; 87040; 87205; 90935; 93005; 93306; 93459; 96365; 96367; 97163; 99285; C1760; C1893; G0378; J0583; J0696; J1644; J2250; J2405; J2920; J3010; J7030; J7512; P9016; Q4081

== ENCOUNTER 2019-09-23 13:29 | Emergency (ER) | payer OTHER ==
[2019-09-23] MEDS ORDERED: GLUCAGON 1 MG/VIAL ONE (14:26)
[2019-09-23] MEDS ORDERED: ONDANSETRON 4 MG/2 ML VIAL ONE (14:26)
[2019-09-23] MEDS ORDERED: NA CHLORIDE 0.9% 1,000 ML ONE (14:27)
[2019-09-23] MEDS ORDERED: FAMOTIDINE 20 MG/2 ML VIAL IV ONE (14:27)
[2019-09-23 14:48] LABS: Absolute Lymphocytes (CBC) 0.7 K/uL (0.7-4.9); Basophils % 0.7 % (0-1.3); Hematocrit 26.2 % (36.0-45.0); Lymphocytes % 10.9 % (15.3-44.8); MPV 8.9 fL (7.6-11.3); RBC Red Blood Cell Count 2.89 M/uL (3.86-4.86)
[2019-09-23 15:06] LABS: ALT/SGPT 29 U/L (12-78); AST/SGOT 37 U/L (15-37); Albumin 3.1 g/dL (3.4-5.0); Alkaline Phosphatase 159 U/L (45-117); BUN Blood Urea Nitrogen 56 mg/dL (7-18); Bicarbonate 25 mmol/L (21-32); Bilirubin Direct 0.2 mg/dL (0-0.2); Bilirubin Total 0.4 mg/dL (0.2-1.0); Glucose Level 96 mg/dL (74-106); Lipase 125 U/L (73-393); Magnesium 2.7 mg/dL (1.8-2.4); Protein, Total 6.8 g/dL (6.4-8.2); Sodium Level 144 mmol/L (136-145); Troponin (Emerg Dept Use Only) 0.29 ng/mL (0.0-0.045)
--- NOTE | 2019-09-23 15:11 | RAD REPORT ---
EXAM DESCRIPTION: RAD - Chest Single View - 09/23/2019 2:35 pm CLINICAL HISTORY: Chest pain COMPARISON: March 2019 TECHNIQUE: AP portable chest image was obtained 1432 hour . FINDINGS: No peripheral mass or consolidation. Interstitial pattern is stable. Double-lumen dialysis catheter present on the right. Pacemaker/defibrillator has been placed since prior imaging. Cardiome max is present without vascular engorgement. No measurable pleural effusion and no pneumothorax. No acute bony abnormality seen. No acute aortic findings suspected. IMPRESSION: No acute cardiopulmonary process. No suspicious change from comparison.
[2019-09-23 15:13] LABS: Protime INR 0.98
[2019-09-23 15:23] LABS: NT PRO-BNP > 35000 pg/mL (<125)
--- NOTE | 2019-09-23 15:58 | ER ---
Nurse's Notes [facility] Name: Cheyanne Haywood Age: 68 yrs Sex: Female : 1950 Arrival Date: 09/23/2019 Time: 13:34 Bed 8 Private MD: Diagnosis: Dysphagia;Vomiting;End stage renal disease;Hypokalemia Presentation: 09/23 13:35 Presenting complaint: Patient states: since yesterday morning I have not been able to la1 keep anything down at all, not even water. Transition of care: patient was not received from another setting of care. Onset of symptoms was September 23, 2019. Risk Assessment: Do you want to hurt yourself or someone else? Patient reports no desire to harm self or others. Initial Sepsis Screen: Does the patient meet any 2 criteria? No. Patient's initial sepsis screen is negative. Does the patient have a suspected source of infection? No. Patient's initial sepsis screen is negative. Care prior to arrival: None. 13:35 Method Of Arrival: Ambulatory la1 13:35 Acuity: NORMA 3 la1 Historical: - Allergies: 13:36 No Known Allergies; la1 - PMHx: 13:36 ESRD; Depression; Hypertension; kidney problems; Lupus; M/W/F Dialysis; la1 - Immunization history:: Adult Immunizations up to date. - Social history:: Smoking status: Patient/guardian denies using tobacco. - Ebola Screening: : No symptoms or risks identified at this time. - Family history:: not pertinent. Screenin:40 Abuse screen: Denies threats or abuse. Denies injuries from another. Nutritional hb screening: No deficits noted. Tuberculosis screening: No symptoms or risk factors identified. Fall Risk None identified. Assessment: 13:45 General: Appears in no apparent distress. Behavior is calm, cooperative. Pain: Denies hb pain. Neuro: Level of Consciousness is awake, alert, obeys commands, Oriented to person, place, time, situation. Cardiovascular: Capillary refill < 3 seconds Patient's skin is warm and dry. Respiratory: Airway is patent Respiratory effort is even, unlabored, Respiratory pattern is regular, symmetrical, Breath sounds are clear bilaterally. GI: Abdomen is non-distended, Bowel sounds present X 4 quads. Abd is soft and non tender X 4 quads. Reports nausea, vomiting. : No signs and/or symptoms were reported regarding the genitourinary system. EENT: No signs and/or symptoms were reported regarding the EENT system. Derm: Skin is intact, Skin is pink, warm \T\ dry. Musculoskeletal: No signs and/or symptoms reported regarding the musculoskeletal system. 14:40 Reassessment: Patient appears in no apparent distress at this time. No changes from hb previously documented assessment. Patient and/or family updated on plan of care and expected duration. Pain level reassessed. Patient is alert, oriented x 3, equal unlabored respirations, skin warm/dry/pink. 15:30 Reassessment: Patient appears in no apparent distress at this time. Patient and/or hb family updated on plan of care and expected duration. Pain level reassessed. Patient is alert, oriented x 3, equal unlabored respirations, skin warm/dry/pink. Vital Signs: 13:36 BP 143 / 74; Pulse 78; Resp 16; Temp 97.5; Pulse Ox 100% on R/A; Weight 65.32 kg; la1 Height 5 ft. 6 in. (167.64 cm); 14:30 BP 131 / 72; Pulse 69; Resp 15; Pulse Ox 100% on R/A; Pain 0/10; hb 15:55 BP 124 / 69; Pulse 68; Resp 15; Pulse Ox 100% on R/A; Pain 0/10; hb 13:36 Body Mass Index 23.24 (65.32 kg, 167.64 cm) la1 ED Course: 13:34 Patient arrived in ED. mr 13:36 Triage completed. la1 13:36 Arm band placed on right wrist. la1 13:43 Jaime Carrizales MD is Attending Physician. mike 14:23 Rachelle Jones, RN is Primary Nurse. hb 14:32 X-ray completed. Portable x-ray completed in exam room. Patient tolerated procedure sw well. 14:32 Inserted saline lock: 22 gauge in right antecubital area, using aseptic technique. hb Blood collected. 14:40 Patient has correct armband on for positive identification. Placed in gown. Bed in low hb position. Call light in reach. Side rails up X 1. 15:43 EKG done, by ED staff, reviewed by Jaime Carrizales MD. 3 15:56 Rodolfo Russo MD is Referral Physician. mike 16:30 No provider procedures requiring assistance completed. IV discontinued, intact, hb bleeding controlled, No redness/swelling at site. Pressure dressing applied. Administered Medications: 14:42 Drug: Zofran 4 mg Route: IVP; Site: right antecubital; hb 15:15 Follow up: Response: No adverse reaction hb 14:42 Drug: NS 0.9% 1000 ml Route: IV; Rate: 75 ml/hr; Site: right antecubital; hb 16:30 Follow up: Response: No adverse reaction; IV Status: Completed infusion; IV Intake: hb 180ml 14:42 Drug: Pepcid 20 mg Route: IVP; Site: right antecubital; hb 15:15 Follow up: Response: No adverse reaction hb 14:42 Drug: Glucagon 1 mg Route: IVP; Site: right antecubital; hb 15:00 Follow up: Response: No adverse reaction hb Intake: 16:30 IV: 180ml; Total: 180ml. hb Outcome: 15:57 Discharge ordered by . mike 16:30 Discharged to home via wheelchair, with family. hb 16:30 Condition: stable 16:30 Discharge instructions given to patient, family, Instructed on discharge instructions, follow up and referral plans. medication usage, Demonstrated understanding of instructions, follow-up care, medications, Prescriptions given X 1. 16:31 Patient left the ED. ph Signatures: Jaime Carrizales MD MD cha Rivera, Mary mr Attema, Lee RN RN Ciarra Jacobson RN RN ph Warren, Shannon sw Baxter, Heather, RN RN hb Herrera, Deanna [facility]
--- NOTE | 2019-09-23 15:58 | EDPHYS ---
Physician Documentation [facility] Name: Cheyanne Haywood Age: 68 yrs Sex: Female : 1950 Arrival Date: 09/23/2019 Time: 13:34 Bed 8 Private MD: ANAM Physician Jaime Carrizales HPI: 09/23 14:05 This 68 yrs old Female presents to ER via Ambulatory with complaints of mike Vomiting. 14:05 The patient presents to the emergency department with nausea, vomiting, that is mike intermittent. Onset: The symptoms/episode began/occurred 1 day(s) ago. Possible causes: unknown. The symptoms are aggravated by food , The symptoms are alleviated by nothing. Associated signs and symptoms: The patient has no apparent associated signs or symptoms. Severity of symptoms: At their worst the symptoms were mild moderate in the emergency department the symptoms are unchanged. The patient has not experienced similar symptoms in the past. Historical: - Allergies: 13:36 No Known Allergies; la1 - PMHx: 13:36 ESRD; Depression; Hypertension; kidney problems; Lupus; M/W/F Dialysis; la1 - Immunization history:: Adult Immunizations up to date. - Social history:: Smoking status: Patient/guardian denies using tobacco. - Ebola Screening: : No symptoms or risks identified at this time. - Family history:: not pertinent. ROS: 14:05 Constitutional: Negative for fever, chills, and weight loss, Eyes: Negative for injury, mike pain, redness, and discharge, ENT: Negative for injury, pain, and discharge, Neck: Negative for injury, pain, and swelling, Cardiovascular: Negative for chest pain, palpitations, and edema, Respiratory: Negative for shortness of breath, cough, wheezing, and pleuritic chest pain, Back: Negative for injury and pain, : Negative for injury, bleeding, discharge, and swelling, MS/Extremity: Negative for injury and deformity, Skin: Negative for injury, rash, and discoloration, Neuro: Negative for headache, weakness, numbness, tingling, and seizure, Psych: Negative for depression, anxiety, suicide ideation, homicidal ideation, and hallucinations, Allergy/Immunology: Negative for hives, rash, and allergies, Endocrine: Negative for neck swelling, polydipsia, polyuria, polyphagia, and marked weight changes, Hematologic/Lymphatic: Negative for swollen nodes, abnormal bleeding, and unusual bruising. 14:05 Abdomen/GI: Positive for nausea and vomiting. Exam: 14:05 Constitutional: This is a well developed, well nourished patient who is awake, alert, mike and in no acute distress. Head/Face: Normocephalic, atraumatic. Eyes: Pupils equal round and reactive to light, extra-ocular motions intact. Lids and lashes normal. Conjunctiva and sclera are non-icteric and not injected. Cornea within normal limits. Periorbital areas with no swelling, redness, or edema. ENT: Nares patent. No nasal discharge, no septal abnormalities noted. Tympanic membranes are normal and external auditory canals are clear. Oropharynx with no redness, swelling, or masses, exudates, or evidence of obstruction, uvula midline. Mucous membranes moist. Neck: Trachea midline, no thyromegaly or masses palpated, and no cervical lymphadenopathy. Supple, full range of motion without nuchal rigidity, or vertebral point tenderness. No Meningismus. Chest/axilla: Normal chest wall appearance and motion. Nontender with no deformity. No lesions are appreciated. Cardiovascular: Regular rate and rhythm with a normal S1 and S2. No gallops, murmurs, or rubs. Normal PMI, no JVD. No pulse deficits. Respiratory: Lungs have equal breath sounds bilaterally, clear to auscultation and percussion. No rales, rhonchi or wheezes noted. No increased work of breathing, no retractions or nasal flaring. Abdomen/GI: Soft, non-tender, with normal bowel sounds. No distension or tympany. No guarding or rebound. No evidence of tenderness throughout. Back: No spinal tenderness. No costovertebral tenderness. Full range of motion. Skin: Warm, dry with normal turgor. Normal color with no rashes, no lesions, and no evidence of cellulitis. MS/ Extremity: Pulses equal, no cyanosis. Neurovascular intact. Full, normal range of motion. Neuro: Awake and alert, GCS 15, oriented to person, place, time, and situation. Cranial nerves II-XII grossly intact. Motor strength 5/5 in all extremities. Sensory grossly intact. Cerebellar exam normal. Normal gait. Psych: Awake, alert, with orientation to person, place and time. Behavior, mood, and affect are within normal limits. Vital Signs: 13:36 BP 143 / 74; Pulse 78; Resp 16; Temp 97.5; Pulse Ox 100% on R/A; Weight 65.32 kg; la1 Height 5 ft. 6 in. (167.64 cm); 14:30 BP 131 / 72; Pulse 69; Resp 15; Pulse Ox 100% on R/A; Pain 0/10; hb 15:55 BP 124 / 69; Pulse 68; Resp 15; Pulse Ox 100% on R/A; Pain 0/10; hb 13:36 Body Mass Index 23.24 (65.32 kg, 167.64 cm) la1 MDM: 13:43 Patient medically screened. [facility] 14:07 Data reviewed: vital signs, nurses notes, lab test result(s), EKG, radiologic studies, mike plain films. 09/23 14:05 Order name: Basic Metabolic Panel [facility] 09/23 14:05 Order name: CBC with Diff [facility] 09/23 14:05 Order name: LFT's [facility] 09/23 14:05 Order name: Magnesium [facility] 09/23 14:05 Order name: NT PRO-BNP [facility] 09/23 14:05 Order name: PT-INR [facility] 09/23 14:05 Order name: Troponin (emerg Dept Use Only) [facility] 09/23 14:05 Order name: Lipase [facility] 09/23 14:49 Order name: CBC with Automated Diff; Complete Time: 15:02 EDUT 09/23 15:17 Order name: Protime (+INR); Complete Time: 15:20 EDMS 09/23 15:25 Order name: Basic Metabolic Panel; Complete Time: 15:32 EDUT 09/23 15:25 Order name: Liver (Hepatic) Function; Complete Time: 15:32 EDUT 09/23 15:25 Order name: Troponin (Emerg Dept Use Only); Complete Time: 15:32 EDMS 09/23 15:25 Order name: NT PRO-BNP; Complete Time: 15:32 EDMS 09/23 14:05 Order name: XRAY Chest (1 view) [facility] 09/23 14:05 Order name: EKG; Complete Time: 14:06 [facility] 09/23 14:05 Order name: Cardiac monitoring; Complete Time: 14:42 [facility] 09/23 14:05 Order name: EKG - Nurse/Tech; Complete Time: 15:34 [facility] 09/23 14:05 Order name: IV Saline Lock; Complete Time: 14:42 [facility] 09/23 14:05 Order name: Labs collected and sent; Complete Time: 14:42 [facility] 09/23 14:05 Order name: O2 Per Protocol; Complete Time: 14:43 [facility] 09/23 14:05 Order name: O2 Sat Monitoring; Complete Time: 14:43 [facility] 09/23 15:04 Order name: PO challenge: WATER; Complete Time: 15:27 [facility] 09/23 15:25 Order name: Magnesium; Complete Time: 15:32 EDMS 09/23 15:25 Order name: Lipase; Complete Time: 15:32 EDMS 09/23 15:39 Order name: RAD; Complete Time: 15:53 EDMS Administered Medications: 14:42 Drug: Zofran 4 mg Route: IVP; Site: right antecubital; hb 15:15 Follow up: Response: No adverse reaction hb 14:42 Drug: NS 0.9% 1000 ml Route: IV; Rate: 75 ml/hr; Site: right antecubital; hb 16:30 Follow up: Response: No adverse reaction; IV Status: Completed infusion; IV Intake: hb 180ml 14:42 Drug: Pepcid 20 mg Route: IVP; Site: right antecubital; hb 15:15 Follow up: Response: No adverse reaction hb 14:42 Drug: Glucagon 1 mg Route: IVP; Site: right antecubital; hb 15:00 Follow up: Response: No adverse reaction hb Disposition: 09/23/19 15:57 Discharged to Home. Impression: Dysphagia, Vomiting, End stage renal disease, Hypokalemia. - Condition is Stable. - Discharge Instructions: Potassium Content of Foods, Nausea and Vomiting, Adult, Nausea and Vomiting, Adult, [id number], Dialysis, End-Stage Kidney Disease, Peritoneal Dialysis, [id number], Hypokalemia, Dialysis Diet, [id number], Dialysis Diet. - Prescriptions for Zofran 4 mg Oral Tablet - take 1 tablet by ORAL route every 12 hours As needed; 20 tablet. - Medication Reconciliation Form, Thank You Letter, Antibiotic Education, Prescription Opioid Use form. - Follow up: Private Physician; When: 2 - 3 days; Reason: Recheck today's complaints, Continuance of care, Re-evaluation by your physician. Follow up: Rodolfo Russo MD; When: 2 - 3 days; Reason: Recheck today's complaints, Re-evaluation by your physician. - Problem is new. - Symptoms have improved. Signatures: Dispatcher [employer] EDJaime Cai MD MD cha Attema, Lee RN RN la1 Ciarra Wyman RN RN Rachelle Jones RN RN Corrections: (The following items were deleted from the chart) 16:31 15:57 09/23/2019 15:57 Discharged to Home. Impression: Dysphagia; Vomiting; End stage ph renal disease; Hypokalemia. Condition is Stable. Forms are Medication Reconciliation Form, Thank You Letter, Antibiotic Education, Prescription Opioid Use. Follow up: Private Physician; When: 2 - 3 days; Reason: Recheck today's complaints, Continuance of care, Re-evaluation by your physician. Follow up: Rodolfo Russo; When: 2 - 3 days; Reason: Recheck today's complaints, Re-evaluation by your physician. Problem is new. Symptoms have improved. mike
[2019-09-23 19:10] VITALS: TEMP 97.5; O2SAT 100
[2019-09-23 19:13] VITALS: BP 124/69
--- NOTE | 2019-09-24 12:46 | EKG ---
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
--- OUTSIDE RECORDS SUMMARY | 2019-09-25 06:17 | XMS REPORT ---
:1950 [facility] [address] [place] [address] Care Team Providers Name Role Phone MARIO ANDERSEN Unavailable Unavailable Payers Payer Name Policy Type Policy Number Effective Date Expiration Date Problems This patient has no known problems. Allergies, Adverse Reactions, Alerts This patient has no known allergies or adverse reactions. Medications This patient has no known medications. Results Test Description Test Time Test Comments Text Results Atomic Results Result Comments URINE CULTURE 2018-12-02 16:29:00 Test Item Value Reference Range Comments CULTURE (BEAKER) (test bogg=3796) >100,000 col/mL skin stanley CYTOMEGALOVIRUS ANTIBODY, [id number] 12:23:00 Test Item Value Reference Range Comments CYTOMEGALOVIRUS IGM ANTIBODY (BEAKER) (test Negative Negative, Equivocal nasl=9140) CMV IgM Result Interpretation: </=0.8 Al Negative 0.9-1.0 Al Equivocal >/=1.1 Al PositiveCYTOMEGALOVIRUS ANTIBODY, [id number] 12:18:00 Test Item Value Reference Range Comments CYTOMEGALOVIRUS, IGG (BEAKER) (test qjfg=8545) Positive Negative, Equivocal CMV IgG Result Interpretation: </=0.8 Al Negative 0.9-1.0 Al Equivocal &gt ;/=1.1 Al PositiveEBV ANTIBODY, [id number] 12:18:00 Test Item Value Reference Range Comments SHAKIR ESTRADA VIRAL CAPSID ANTIGEN IGG (BEAKER) Positive Negative, Equivocal (test khvx=1075) Shakir Estrada Viral Capsid Antigen IgG Result Interpretation: </=0.8 Al Negative 0.9-1.0 Al Equivocal >/=1.1 Al PositiveCARDIOLIPIN ANTIBODIES, IGG AND [id number] 12:18:00 Test Item Value Reference Range Comments ANTICARDIOLIPIN IGG ANTIBODY (BEAKER) (test cmnm=530) < GPL <20.0 ANTICARDIOLIPIN IGM ANTIBODY (BEAKER) (test tdxs=698) < MPL <20.0 Anticardiolipin IgG Result Interpretation: <20.0 GPL Normal>/=20.0 GPL PositiveAnticardiolipin IgM Result Interpretation: <20.0 MPL Normal>/= 20.0 MPL PositiveDOUBLE-STRANDED DNA (DSDNA) [id number] 11:08:00 Test Item Value Reference Range Comments ANTI-DNA DS ([employer]) (test afrb=4296) Negative EBV ANTIBODY, [id number] 10:52:00 Test Item Value Reference Range Comments SHAKIR ESTRADA VIRAL CAPSID ANTIGEN IGM ([employer]) Negative Negative, Equivocal (test wlqy=7638) Shakir Estrada Viral Capsid Antigen IgM Result Interpretation: </=0.8 Al Negative 0.9-1.0 Al Equivocal >/=1.1 Al PositiveVARICELLA ZOSTER ANTIBODY , [id number] 10:52:00 Test Item Value Reference Range Comments VARICELLA ZOSTER IGG (AL) ([employer]) (test jrot=9080) 7.3 VARICELLA ZOSTER RESULT INTERPRETATIONS: <=0.8 Al Nonreactive: Presumed non-immune to VZV 0.9-1.0 Al Equivocal >=1.1 Al Reactive: Presumed immune to [id number] 13:57:00 Test Item Value Reference Range Comments RPR SCREEN (BEAKER) (test fqtu=499) Nonreactive Nonreactive 1:1 MIXING STUDY, [id number] 11:12:00 Test Item Value Reference Range Comments PROTIME (BEAKER) (test gcbj=637) 13.8 seconds 11.7-14.7 PARTIAL THROMBOPLASTIN TIME (BEAKER) (test 31.6 seconds 22.5-36.0 nnin=132) PT 1/1 MIX (BEAKER) (test dafk=6645) 13.5 SECS 11.7-14.7 PTT 1/1 MIX (BEAKER) (test ywij=3924) 31.9 SECS 22.5-36.0 HEPATITIS B SURFACE [id number] 10:16:00 Test Item Value Reference Range Comments HEPATITIS B SURFACE ANTIBODY (BEAKER) (test < mIU/mL <8.0 fzbu=583) HEPATITIS B SURFACE [id number] 09:48:00 Test Item Value Reference Range Comments HEPATITIS B SURFACE ANTIGEN (2) (BEAKER) (test Nonreactive Nonreactive remq=6721) HEPATITIS B CORE ANTIBODY, [id number] 09:48:00 Test Item Value Reference Range Comments HEPATITIS B CORE IGM ANTIBODY (BEAKER) (test Nonreactive Nonreactive zlld=491) HEPATITIS C [id number] 09:42:00 Test Item Value Reference Range Comments HEPATITIS C ANTIBODY (BEAKER) (test tyoi=056) Nonreactive Nonreactive HIV-1 ANTIGEN WITH HIV-1/2 [id number] 09:42:00 Test Item Value Reference Range Comments HIV-1 ANTIGEN WITH HIV 1\T\2 ANTIBODY (2) Nonreactive Nonreactive (BEAKER) (test iuaj=1511) HEMOGLOBIN [id number] 09:33:00 Test Item Value Reference Range Comments HEMOGLOBIN A1C (BEAKER) (test kvrp=386) 5.2 % 4.3-6.1 COMPLEMENT COMPONENT [id number] 09:29:00 Test Item Value Reference Range Comments C4 COMPLEMENT (BEAKER) (test xumq=643) 39 mg/dL 15-57 COMPLEMENT COMPONENT [id number] 09:29:00 Test Item Value Reference Range Comments C3 COMPLEMENT (BEAKER) (test bjms=907) 82 mg/dL 82-193 COMPREHENSIVE METABOLIC [id number] 09:29:00 Test Item Value Reference Range Comments TOTAL PROTEIN (BEAKER) 6.9 gm/dL 6.0-8.3 (test xnsf=454) ALBUMIN (BEAKER) (test 3.9 g/dL 3.5-5.0 oobq=9516) ALKALINE PHOSPHATASE 92 U/L 40-150 (BEAKER) (test rdtc=868) BILIRUBIN TOTAL (BEAKER) 0.3 mg/dL 0.2-1.2 (test isqb=545) SODIUM (BEAKER) (test 140 meq/L 136-145 gfad=860) POTASSIUM (BEAKER) (test 4.1 meq/L 3.5-5.1 xqlb=072) CHLORIDE (BEAKER) (test 106 meq/L 98-107 qcmm=821) CO2 (BEAKER) (test 20 meq/L 22-29 ogbl=258) BLOOD UREA NITROGEN 70 mg/dL 7-21 (BEAKER) (test jyui=254) CREATININE (BEAKER) (test 5.40 mg/dL 0.57-1.25 qzlq=544) GLUCOSE RANDOM (BEAKER) 117 mg/dL 70-105 (test cxxv=875) CALCIUM (BEAKER) (test 9.6 mg/dL 8.4-10.2 jsjf=205) AST (SGOT) (BEAKER) (test 19 U/L 5-34 labf=371) ALT (SGPT) (BEAKER) (test 11 U/L 6-55 vzmr=831) EGFR (BEAKER) (test 8 mL/min/1.73 sq m ESTIMATED GFR IS NOT klxi=6245) ACCURATE CREATININE CLEARANCE IN PREDICTING GLOMERULAR FILTRATION RATE. ESTIMATED GFR IS NOT APPLICABLE FOR DIALYSIS PATIENTS. URIC [id number] 09:25:00 Test Item Value Reference Range Comments URIC ACID (BEAKER) (test rikx=887) 10.3 mg/dL 2.6-7.2 [id number] 09:25:00 Test Item Value Reference Range Comments PHOSPHORUS (BEAKER) (test wrvq=975) 6.7 mg/dL 2.3-4.7 GAMMA GLUTAMYL TRANSFERASE (GGT)2018-11-30 09:25:00 Test Item Value Reference Range Comments GAMMA GLUTAMYL TRANSFERASE (BEAKER) (test bdby=810) 36 U/L 9-64 LACTATE DEHYDROGENASE (LDH)2018-11-30 09:25:00 Test Item Value Reference Range Comments LACTATE DEHYDROGENASE (BEAKER) (test bvny=520) 285 U/L 125-220 PTH, [id number] 09:19:00 Test Item Value Reference Range Comments PARATHYROID HORMONE INTACT (BEAKER) (test 315.4 pg/mL 8.5-72.5 vtjb=127) URINALYSIS W/ [id number] 09:08:00 Test Item Value Reference Range Comments COLOR (BEAKER) (test wtrc=904) Yellow CLARITY (BEAKER) (test bhgb=821) Clear SPECIFIC GRAVITY UA (BEAKER) (test nzxy=530) 1.011 1.001-1.035 PH UA (BEAKER) (test eucd=172) 5.5 5.0-8.0 PROTEIN UA (BEAKER) (test tlkn=722) 200 mg/dL Negative GLUCOSE UA (BEAKER) (test kncc=227) Negative Negative KETONES UA (BEAKER) (test achj=946) Negative Negative BILIRUBIN UA (BEAKER) (test pmxm=782) Negative Negative BLOOD UA (BEAKER) (test jrke=553) Trace Negative NITRITE UA (BEAKER) (test jumc=735) Negative Negative LEUKOCYTE ESTERASE UA (BEAKER) (test ppof=064) Negative Negative UROBILINOGEN UA (BEAKER) (test rzgt=294) 0.2 mg/dL 0.2-1.0 RBC UA (BEAKER) (test rtae=192) < /HPF WBC UA (BEAKER) (test wyli=961) 7 /HPF BACTERIA (BEAKER) (test byhw=195) Occasional SQUAMOUS EPITHELIAL (BEAKER) (test csuy=117) 1 /HPF SOURCE(BEAKER) (test teck=9868) [id number] 08:58:00 Test Item Value Reference Range Comments PROTIME (BEAKER) (test siqk=350) 13.9 seconds 11.7-14.7 INR (BEAKER) (test hgdj=318) 1.1 <=5.9 PARTIAL THROMBOPLASTIN TIME (BEAKER) (test 30.4 seconds 22.5-36.0 cxxf=057) RECOMMENDED COUMADIN/WARFARIN INR THERAPY RANGESSTANDARD DOSE: 2.0 - 3.0 Includes: PROPHYLAXIS forvenous thrombosis, systemic embolization; TREATMENT for venous thrombosis and/or pulmonary embolus.HIGH RISK: Target INR is 2.5-3.5 for patients with mechanical heart valves.CBC W/PLT COUNT & AUTO [id number] 08:47:00 Test Item Value Reference Range Comments WHITE BLOOD CELL COUNT (BEAKER) (test mxsw=567) 6.3 K/ L 3.5-10.5 RED BLOOD CELL COUNT (BEAKER) (test lppa=410) 3.17 M/ L 3.93-5.22 HEMOGLOBIN (BEAKER) (test jseq=582) 9.6 GM/DL 11.2-15.7 HEMATOCRIT (BEAKER) (test pirz=999) 29.9 % 34.1-44.9 MEAN CORPUSCULAR VOLUME (BEAKER) (test yfnt=940) 94.3 fL 79.4-94.8 MEAN CORPUSCULAR HEMOGLOBIN (BEAKER) (test 30.3 pg 25.6-32.2 icfn=938) MEAN CORPUSCULAR HEMOGLOBIN CONC (BEAKER) (test 32.1 GM/DL 32.2-35.5 eniv=289) RED CELL DISTRIBUTION WIDTH (BEAKER) (test 12.6 % 11.7-14.4 uwgk=372) PLATELET COUNT (BEAKER) (test bdap=130) 128 K/CU MM 150-450 MEAN PLATELET VOLUME (BEAKER) (test tpwe=865) 11.1 fL 9.4-12.3 NUCLEATED RED BLOOD CELLS (BEAKER) (test 0 /100 WBC 0-0 oqav=005) NEUTROPHILS RELATIVE PERCENT (BEAKER) (test 71 % uwet=196) LYMPHOCYTES RELATIVE PERCENT (BEAKER) (test 19 % rcqa=149) MONOCYTES RELATIVE PERCENT (BEAKER) (test 8 % audt=002) EOSINOPHILS RELATIVE PERCENT (BEAKER) (test 2 % xjht=832) BASOPHILS RELATIVE PERCENT (BEAKER) (test 0 % xgab=911) NEUTROPHILS ABSOLUTE COUNT (BEAKER) (test 4.50 K/ L 1.56-6.13 iokt=634) LYMPHOCYTES ABSOLUTE COUNT (BEAKER) (test 1.20 K/ L 1.18-3.74 wnwx=602) MONOCYTES ABSOLUTE COUNT (BEAKER) (test 0.51 K/ L 0.24-0.36 lmbn=217) EOSINOPHILS ABSOLUTE COUNT (BEAKER) (test 0.10 K/ L 0.04-0.36 xouj=740) BASOPHILS ABSOLUTE COUNT (BEAKER) (test 0.01 K/ L 0.01-0.08 hgwk=161) IMMATURE GRANULOCYTES-RELATIVE PERCENT (BEAKER) 0 % 0-1 (test ocjc=9334)
== END 2019-09-23 16:31 | disposition home or self-care (01) ==
LOC: ER 13:29
DX: R13.10 Dysphagia, unspecified (principal); E87.6 Hypokalemia; I12.0 Hypertensive chronic kidney disease with stage 5 chronic kidney disease or end stage renal disease; N18.6 End stage renal disease; Z99.2 Dependence on renal dialysis
CPT/HCPCS: 96361; 93005; 85025; 80048; 36415; 83735; 85610; 80076; 84484; 83690; 83880; 71045; 96375; 96374; 99284; J1610; J7030; J2405

== ENCOUNTER 2019-10-30 08:02 | Day surgery (SDC) | payer OTHER ==
[2019-10-27 10:53] LABS: Absolute Lymphocytes (CBC) 0.6 K/uL (0.7-4.9); Basophils % 0.3 % (0-1.3); Hematocrit 24.2 % (36.0-45.0); Lymphocytes % 11.2 % (15.3-44.8); MPV 9.6 fL (7.6-11.3); RBC Red Blood Cell Count 2.61 M/uL (3.86-4.86)
[2019-10-27 11:41] LABS: Potassium 2.8 mmol/L (3.5-5.1)
[2019-10-27 12:13] LABS: Anisocytosis 1+; Blood Morphology Comment NOTED (NOT SEEN); Platelet Estimate DECR; Urine White Blood Cell Casts OK
[2019-10-27 12:14] LABS: Rouleau SLIGHT
--- OUTSIDE RECORDS SUMMARY | 2019-10-30 08:05 | XMS REPORT ---
:1950 [facility] Address [address] [place] [address] Care Team Providers Name Role Phone MARIO [...] Value Reference Range Comments CULTURE (BEAKER) (test piun=1328) >100,000 col/mL skin stanley CYTOMEGALOVIRUS ANTIBODY, [id number] 12:23:00 Test Item Value Reference Range Comments CYTOMEGALOVIRUS IGM ANTIBODY (BEAKER) (test Negative Negative, Equivocal iqdo=6438) CMV IgM Result Interpretation: </=0.8 Al Negative 0.9-1.0 Al Equivocal >/=1.1 Al PositiveCYTOMEGALOVIRUS ANTIBODY, [id number] 12:18:00 Test Item Value Reference Range Comments CYTOMEGALOVIRUS, IGG (BEAKER) (test gixe=2203) Positive Negative, Equivocal CMV IgG Result Interpretation: </=0.8 Al Negative 0.9-1.0 Al Equivocal &gt ;/=1.1 Al PositiveEBV ANTIBODY, [id number] 12:18:00 Test Item Value Reference Range Comments SHAKIR ESTRADA VIRAL CAPSID ANTIGEN IGG (BEAKER) Positive Negative, Equivocal (test qags=0331) Shakir Estrada Viral Capsid Antigen IgG Result Interpretation: </=0.8 Al Negative 0.9-1.0 Al Equivocal >/=1.1 Al PositiveCARDIOLIPIN ANTIBODIES, IGG AND [id number] 12:18:00 Test Item Value Reference Range Comments ANTICARDIOLIPIN IGG ANTIBODY (BEAKER) (test zkag=705) < GPL <20.0 ANTICARDIOLIPIN IGM ANTIBODY (BEAKER) (test lexc=550) < MPL <20.0 Anticardiolipin IgG Result Interpretation: <20.0 GPL Normal>/=20.0 GPL PositiveAnticardiolipin IgM Result Interpretation: <20.0 MPL Normal>/= 20.0 MPL PositiveDOUBLE-STRANDED DNA (DSDNA) [id number] 11:08:00 Test Item Value Reference Range Comments ANTI-DNA DS ([employer]) (test mgfb=9251) Negative EBV ANTIBODY, [id number] 10:52:00 Test Item Value Reference Range Comments SHAKIR ESTRADA VIRAL CAPSID ANTIGEN IGM ([employer]) Negative Negative, Equivocal (test aljp=5406) Shakir Estrada Viral Capsid Antigen IgM Result Interpretation: </=0.8 Al Negative 0.9-1.0 Al Equivocal >/=1.1 Al PositiveVARICELLA ZOSTER ANTIBODY , [id number] 10:52:00 Test Item Value Reference Range Comments VARICELLA ZOSTER IGG (AL) ([employer]) (test ykrr=7186) 7.3 VARICELLA ZOSTER RESULT INTERPRETATIONS: <=0.8 Al Nonreactive: Presumed non-immune to VZV 0.9-1.0 Al Equivocal >=1.1 Al Reactive: Presumed immune to [id number] 13:57:00 Test Item Value Reference Range Comments RPR SCREEN (BEAKER) (test ryhe=009) Nonreactive Nonreactive 1:1 MIXING STUDY, [id number] 11:12:00 Test Item Value Reference Range Comments PROTIME (BEAKER) (test qvwx=120) 13.8 seconds 11.7-14.7 PARTIAL THROMBOPLASTIN TIME (BEAKER) (test 31.6 seconds 22.5-36.0 ftnx=323) PT 1/1 MIX (BEAKER) (test cfoh=8745) 13.5 SECS 11.7-14.7 PTT 1/1 MIX (BEAKER) (test juxn=7252) 31.9 SECS 22.5-36.0 HEPATITIS B SURFACE [id number] 10:16:00 Test Item Value Reference Range Comments HEPATITIS B SURFACE ANTIBODY (BEAKER) (test < mIU/mL <8.0 wicw=414) HEPATITIS B SURFACE [id number] 09:48:00 Test Item Value Reference Range Comments HEPATITIS B SURFACE ANTIGEN (2) (BEAKER) (test Nonreactive Nonreactive bbfi=3441) HEPATITIS B CORE ANTIBODY, [id number] 09:48:00 Test Item Value Reference Range Comments HEPATITIS B CORE IGM ANTIBODY (BEAKER) (test Nonreactive Nonreactive uczz=771) HEPATITIS C [id number] 09:42:00 Test Item Value Reference Range Comments HEPATITIS C ANTIBODY (BEAKER) (test qubh=088) Nonreactive Nonreactive HIV-1 ANTIGEN WITH HIV-1/2 [id number] 09:42:00 Test Item Value Reference Range Comments HIV-1 ANTIGEN WITH HIV 1\T\2 ANTIBODY (2) Nonreactive Nonreactive (BEAKER) (test wsti=9480) HEMOGLOBIN [id number] 09:33:00 Test Item Value Reference Range Comments HEMOGLOBIN A1C (BEAKER) (test kiod=339) 5.2 % 4.3-6.1 COMPLEMENT COMPONENT [id number] 09:29:00 Test Item Value Reference Range Comments C4 COMPLEMENT (BEAKER) (test pqaq=807) 39 mg/dL 15-57 COMPLEMENT COMPONENT [id number] 09:29:00 Test Item Value Reference Range Comments C3 COMPLEMENT (BEAKER) (test gfst=439) 82 mg/dL 82-193 COMPREHENSIVE METABOLIC [id number] 09:29:00 Test Item Value Reference Range Comments TOTAL PROTEIN (BEAKER) 6.9 gm/dL 6.0-8.3 (test urpv=812) ALBUMIN (BEAKER) (test 3.9 g/dL 3.5-5.0 iljx=0594) ALKALINE PHOSPHATASE 92 U/L 40-150 (BEAKER) (test alvh=258) BILIRUBIN TOTAL (BEAKER) 0.3 mg/dL 0.2-1.2 (test tugg=100) SODIUM (BEAKER) (test 140 meq/L 136-145 fqva=898) POTASSIUM (BEAKER) (test 4.1 meq/L 3.5-5.1 hmpo=132) CHLORIDE (BEAKER) (test 106 meq/L 98-107 aagh=510) CO2 (BEAKER) (test 20 meq/L 22-29 qxwq=957) BLOOD UREA NITROGEN 70 mg/dL 7-21 (BEAKER) (test dlik=819) CREATININE (BEAKER) (test 5.40 mg/dL 0.57-1.25 zjog=701) GLUCOSE RANDOM (BEAKER) 117 mg/dL 70-105 (test pzqz=680) CALCIUM (BEAKER) (test 9.6 mg/dL 8.4-10.2 bhuh=298) AST (SGOT) (BEAKER) (test 19 U/L 5-34 cdzm=930) ALT (SGPT) (BEAKER) (test 11 U/L 6-55 zgfy=552) EGFR (BEAKER) (test 8 mL/min/1.73 sq m ESTIMATED GFR IS NOT pqta=1003) ACCURATE CREATININE CLEARANCE IN PREDICTING GLOMERULAR FILTRATION RATE. ESTIMATED GFR IS NOT APPLICABLE FOR DIALYSIS PATIENTS. URIC [id number] 09:25:00 Test Item Value Reference Range Comments URIC ACID (BEAKER) (test updt=613) 10.3 mg/dL 2.6-7.2 [id number] 09:25:00 Test Item Value Reference Range Comments PHOSPHORUS (BEAKER) (test gwov=304) 6.7 mg/dL 2.3-4.7 GAMMA GLUTAMYL TRANSFERASE (GGT)2018-11-30 09:25:00 Test Item Value Reference Range Comments GAMMA GLUTAMYL TRANSFERASE (BEAKER) (test vkru=749) 36 U/L 9-64 LACTATE DEHYDROGENASE (LDH)2018-11-30 09:25:00 Test Item Value Reference Range Comments LACTATE DEHYDROGENASE (BEAKER) (test gcsl=406) 285 U/L 125-220 PTH, [id number] 09:19:00 Test Item Value Reference Range Comments PARATHYROID HORMONE INTACT (BEAKER) (test 315.4 pg/mL 8.5-72.5 ryvt=221) URINALYSIS W/ [id number] 09:08:00 Test Item Value Reference Range Comments COLOR (BEAKER) (test abaw=310) Yellow CLARITY (BEAKER) (test uxra=281) Clear SPECIFIC GRAVITY UA (BEAKER) (test eeku=838) 1.011 1.001-1.035 PH UA (BEAKER) (test vppd=952) 5.5 5.0-8.0 PROTEIN UA (BEAKER) (test ewlf=527) 200 mg/dL Negative GLUCOSE UA (BEAKER) (test kcoh=070) Negative Negative KETONES UA (BEAKER) (test spar=859) Negative Negative BILIRUBIN UA (BEAKER) (test qkui=946) Negative Negative BLOOD UA (BEAKER) (test zwzs=137) Trace Negative NITRITE UA (BEAKER) (test vfue=073) Negative Negative LEUKOCYTE ESTERASE UA (BEAKER) (test cuyo=924) Negative Negative UROBILINOGEN UA (BEAKER) (test fplv=485) 0.2 mg/dL 0.2-1.0 RBC UA (BEAKER) (test vsgi=472) < /HPF WBC UA (BEAKER) (test ikcg=767) 7 /HPF BACTERIA (BEAKER) (test hyky=036) Occasional SQUAMOUS EPITHELIAL (BEAKER) (test riyo=239) 1 /HPF SOURCE(BEAKER) (test oqxi=8781) [id number] 08:58:00 Test Item Value Reference Range Comments PROTIME (BEAKER) (test kelj=333) 13.9 seconds 11.7-14.7 INR (BEAKER) (test phov=533) 1.1 <=5.9 PARTIAL THROMBOPLASTIN TIME (BEAKER) (test 30.4 seconds 22.5-36.0 clut=270) RECOMMENDED COUMADIN/WARFARIN INR THERAPY RANGESSTANDARD DOSE: 2.0 - 3.0 Includes: PROPHYLAXIS forvenous thrombosis, systemic embolization; TREATMENT for venous thrombosis and/or pulmonary embolus.HIGH RISK: Target INR is 2.5-3.5 for patients with mechanical heart valves.CBC W/PLT COUNT & AUTO [id number] 08:47:00 Test Item Value Reference Range Comments WHITE BLOOD CELL COUNT (BEAKER) (test pihb=617) 6.3 K/ L 3.5-10.5 RED BLOOD CELL COUNT (BEAKER) (test fflj=095) 3.17 M/ L 3.93-5.22 HEMOGLOBIN (BEAKER) (test zijw=568) 9.6 GM/DL 11.2-15.7 HEMATOCRIT (BEAKER) (test iuxo=671) 29.9 % 34.1-44.9 MEAN CORPUSCULAR VOLUME (BEAKER) (test oecc=327) 94.3 fL 79.4-94.8 MEAN CORPUSCULAR HEMOGLOBIN (BEAKER) (test 30.3 pg 25.6-32.2 vaxx=012) MEAN CORPUSCULAR HEMOGLOBIN CONC (BEAKER) (test 32.1 GM/DL 32.2-35.5 ykhx=443) RED CELL DISTRIBUTION WIDTH (BEAKER) (test 12.6 % 11.7-14.4 cxcx=883) PLATELET COUNT (BEAKER) (test idle=884) 128 K/CU MM 150-450 MEAN PLATELET VOLUME (BEAKER) (test zpzq=245) 11.1 fL 9.4-12.3 NUCLEATED RED BLOOD CELLS (BEAKER) (test 0 /100 WBC 0-0 dulq=020) NEUTROPHILS RELATIVE PERCENT (BEAKER) (test 71 % mjjf=352) LYMPHOCYTES RELATIVE PERCENT (BEAKER) (test 19 % phkg=419) MONOCYTES RELATIVE PERCENT (BEAKER) (test 8 % sspf=185) EOSINOPHILS RELATIVE PERCENT (BEAKER) (test 2 % lprh=515) BASOPHILS RELATIVE PERCENT (BEAKER) (test 0 % lvbj=672) NEUTROPHILS ABSOLUTE COUNT (BEAKER) (test 4.50 K/ L 1.56-6.13 lrfd=778) LYMPHOCYTES ABSOLUTE COUNT (BEAKER) (test 1.20 K/ L 1.18-3.74 drpk=605) MONOCYTES ABSOLUTE COUNT (BEAKER) (test 0.51 K/ L 0.24-0.36 idai=281) EOSINOPHILS ABSOLUTE COUNT (BEAKER) (test 0.10 K/ L 0.04-0.36 qdkf=979) BASOPHILS ABSOLUTE COUNT (BEAKER) (test 0.01 K/ L 0.01-0.08 uoqu=813) IMMATURE GRANULOCYTES-RELATIVE PERCENT (BEAKER) 0 % 0-1 (test nagc=3102)
[2019-10-30] MEDS ORDERED: NA CHLORIDE 0.9% 500 ML ONE (08:49)
[2019-10-30] MEDS ORDERED: CEFAZOLIN/SWI 1gm 1 GM/10 ML SYR ONE (08:49)
[2019-10-30] MEDS ORDERED: LIDOCAINE 1% MPF 30 ML VIAL ONE (11:45)
--- NOTE | 2019-10-30 12:51 | P.BOP ---
Preoperative diagnosis: renal failure Postoperative diagnosis: same Primary procedure: REmoval of hemosplit HD cuffed catheter Estimated blood loss: <5cc Specimen: intact hemosplit Findings: as above Anesthesia: Local Complications: None Transferred to: Recovery Room Condition: Good
[2019-10-30 14:17] VITALS: BP 150/62; TEMP 97.9; O2SAT 99
--- NOTE | 2019-11-03 19:08 | OP ---
Date of Procedure: 10/30/2019 Surgeon: Nabor Samuels MD Preoperative Diagnosis: Renal failure. Postoperative Diagnosis: Renal failure. Procedure: Removal of a HemoSplit hemodialysis cuff catheter. Specimen: Intact HemoSplit. Indications: This is the case of a 68-year-old patient, comes to us with above diagnosis, need to re move the HemoSplit. The benefits, alternatives, and risks of removal fully explained, which include, but are not limited to infection, bleeding, damage to adjacent structures as complication, PE and DE , even . She also understands this may not relieve the symptoms. She might need more than one surgical intervention. She understood, signed a consent. Description Of Procedure: Patient was brought to the operating room, placed in supine position. Ane sthesia was done without complication. The chest and neck were prepped and draped in a sterile fashi on. Local anesthetic was applied followed by sharp incision of the skin. A control of the catheter was done proximal and distal. We released the cuff from the area of the skin and then carefully pull the catheter and apply pressure for 15 minutes. The patient tolerated the procedure well. A 3-0 ch romic was used for the subcutaneous tissue and the skin was left to close by secondary intention with a triple antibiotics and gauze on top. Patient was brought back to normal position from Trendelenburg. The patient tolerated the procedure well. Patient was sent to Recovery in stable condition. REY/HECTOR Voice ID: [id number] Report ID: [id number]
--- NOTE | 2019-11-03 19:13 | DS ---
Date of Discharge: 10/30/2019 Diagnosis: Renal failure. Procedure: Removal of a HemoSplit hemodialysis catheter. Disposition: Home. Activity: As tolerated. No heavy lifting. Followup: Follow up in my office in 1 week. Call for appointment at [phone]. Medications: See orders. REY/HECTOR Voice ID: [id number] Report ID: [id number]
== END 2019-10-30 13:45 | disposition home or self-care (01) ==
LOC: OR 08:02
PROVIDERS: ATTEND Surgery
PROC: 05PY03Z Removal of Infusion Device from Upper Vein, Open Approach (ICD-10-PCS; principal; 2019-10-30 11:00)
DX: N19 Unspecified kidney failure (principal)
CPT/HCPCS: 85025; 80048; 36415 ×2; 84132; 88300; 36590; J0690; J7040

== ENCOUNTER 2021-04-10 12:32 | Day surgery (SDC) | payer OTHER ==
[2021-04-07 13:35] LABS: Absolute Lymphocytes (CBC) 0.8 K/uL (0.7-4.9); Basophils % 0.4 % (0-1.3); Hematocrit 26.9 % (36.0-45.0); Lymphocytes % 18.7 % (15.3-44.8); MPV 9.6 fL (7.6-11.3); RBC Red Blood Cell Count 2.87 M/uL (3.86-4.86)
[2021-04-07 13:47] LABS: Potassium 4.1 mmol/L (3.5-5.1)
--- NOTE | 2021-04-08 11:35 | EKG ---
Test Date: 2021-04-07 Test Time: 11:58:54 Clinical Laboratory Technician: DIEGO MEASUREMENT RESULTS: Intervals: Rate: 63 WA: 174 QRSD: 188 QT: 550 QTc: 562 [place]: P: 83 WA: 174 QRS: -71 T: 88 INTERPRETIVE STATEMENTS: Electronic ventricular pacemaker Compared to ECG 09/23/2019 15:43:24 Atrial-sensed ventricular-paced complex(es) or rhythm no longer present Electronically Signed On 04-08-21 11:31:19 CDT by Matthew Braden
[2021-04-10] MEDS ORDERED: NA CHLORIDE 0.9% 500 ML ONE (13:00)
[2021-04-10 13:10] VITALS: TEMP 97.4
[2021-04-10] MEDS ORDERED: NITROGLYCERIN 100 MCG/ML SYR (for cath lab use only) IV ONE (13:26)
[2021-04-10] MEDS ORDERED: HEPARIN 10,000 UNIT/10 ML VIAL IV ONE (13:26)
[2021-04-10] MEDS ORDERED: MIDAZOLAM HCL 2 MG/2 ML INJ ONE (13:26)
[2021-04-10] MEDS ORDERED: ATROPINE SULF 1 MG/10 ML SYR IV ONE (13:26)
[2021-04-10] MEDS ORDERED: VERAPAMIL HCL 10 MG/4 ML VIAL IV ONE (13:26)
[2021-04-10] MEDS ORDERED: FENTANYL CITR 100 MCG/2 ML ONE (13:26)
[2021-04-10] MEDS ORDERED: HEPARIN 5000 UNIT/ML 1 ML VIAL ONE (13:26)
--- NOTE | 2021-04-10 15:47 | OP ---
Date of Procedure: 04/10/2021 Surgeon: YANNI WELLS Procedure Performed: Selective coronary angiogram with bypass graft study. Indication: Abnormal stress test before kidney transplant. Access: Right femoral artery 6-[place] closed with 6-[place] Angio-Seal. Complications: None. Bleeding: Less than 10 mL. Description Of Procedure: After risks, benefits, and alternatives were explained, the patient agreed to proceed and signed informed consent. The patient was [facility], prepped and draped in usual sterile fashion. We accessed the right femoral artery using ultr asound, micropuncture kit and fluoroscopy. We placed 6-[place] sheath. We took a 6-[place] JL4 cathet er into the aortic root with difficulty. The left main was engaged and standard views were obtained. The patient has CoreValve in place. Then, we exchanged for a 6-[place] JR4 catheter, engaged the RC A, took standard views, and then engaged the WYATT, took standard views and removed the catheter and s dian, and placed a 6-[place] Angio-Seal with good hemostasis. Findings: 1.Left main, large, with mild 10% to 20% diffuse disease. 2.LAD, likely has a proximal 60% to 70% stenosis and seems like it is [employer] after the midportion with patent WYATT to distal LAD. 3.Left circumflex, mild 10% to 20% diffuse disease. 4.RCA, large, dominant with luminal irregularities. Grafts: Patent WYATT to distal LAD. Conclusion: Severe LAD disease with patent WYATT to distal LAD. Recommendations: Medical managements and to proceed with kidney transplant as scheduled. SR/MODL Voice ID: [id number] Report ID: [id number]
[2021-04-10 16:33] VITALS: BP 143/77; O2SAT 97
== END 2021-04-10 16:23 | disposition home or self-care (01) ==
LOC: CCL 12:32
PROVIDERS: ATTEND Internal Medicine
DX: I25.10 Atherosclerotic heart disease of native coronary artery without angina pectoris (principal); I35.2 Nonrheumatic aortic (valve) stenosis with insufficiency; I10 Essential (primary) hypertension; M32.9 Systemic lupus erythematosus, unspecified; F32.9 Major depressive disorder, single episode, unspecified; Z95.1 Presence of aortocoronary bypass graft; Z95.810 Presence of automatic (implantable) cardiac defibrillator; Z99.2 Dependence on renal dialysis; Z20.822 Contact with and (suspected) exposure to COVID-19
CPT/HCPCS: 93005; 85025; 80048; 36415; 85610; 85730; 93455; U0002; C1893; C1760; J2250; J3010; J7040; J1644

== ENCOUNTER 2021-06-23 14:19 | Inpatient (IN) | payer OTHER ==
--- OUTSIDE RECORDS SUMMARY | 2021-06-23 14:24 | XMS REPORT | Continuity of Care Document ---
:1950 Author Organization [facility] t Address [address] [place] [address] Care Team Providers Name Role Phone Pcp Primary Care Physician Unavailable Cruz COYNE, Hugo Attending Clinician Mariana Newell Attending Clinician Unavailable Kalpana COYNE, K N Attending Clinician Doctor Unassigned, Name Attending Clinician Unavailable Mateo COYNE, Torres Attending Clinician Julio ARMENDARIZ, M Attending Clinician Unavailable Leandro COYNE, H. Attending Clinician YOUSUF Attending Clinician Unavailable OPPERMANN Attending Clinician Unavailable ANATOLY ANDERSEN Attending Clinician Unavailable OPPERMANN Admitting Clinician Unavailable Payers Payer Name Policy Type Policy Effective Date Expiration Date Sour ce Number MEDICAREMEDICARE PART [id number] 2016 [place] A AND 00:00:00 [facility] [id number] 2016 [place] [id number] Met kidd -PresentMd 00:00:00 Hos pital litary Problems Condition Condition Condition Status Onset Resolution Last Treating Co mments Source Name Details Category Date Date Treatment Clinician Date End-stage End-stage Disease Active Overview: Methodi renal renal 8-[address] disease disease 00:00: g of this Hospi ta 00 note l might be different from the original. Added automatic ally from request for surgery [id number] S/P TAVR S/P TAVR Disease Active Overview: Me thodi (transcath (transcath 6-[address] eter eter 00:00: g of this Hospita aortic aortic 00 note l valve valve might be replacemen replacemen different t) t) from the original. 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 She desires PD catheter but has already been scheduled to have a PD catheter placement with another surgeon at [facility].I will be available as needed. We will follow-up PRN. Postoperat Postoperat Disease Active M ethodi amrik anemia amrik anemia 6-04 st due to due to 00:00: Hospita acute acute 00 l blood loss blood loss Thrombocyt Thrombocyt Disease Active M ethodi openia due openia due 6-04 st to blood to blood 00:00: Hospit a loss loss 00 l ESRD (end ESRD (end Disease Active Met hodi stage stage 5-03 st renal renal 00:00: Hospita disease) disease) 00 l on on dialysis dialysis Pre-transp Pre-transp Disease Active [facility] evaluation 00:00: Me dical for for 00 Center chronic chronic kidney kidney disease disease Stage 4 Stage 4 Disease Active [facility] chronic chronic [address] [facility] [facility] - kidney kidney 00:00: Medical disease disease 00 Center Lupus Lupus Disease Active 2017-11 Methodi 11-23 st 00:00: Hospita 00 l Allergies, Adverse Reactions, Alerts This patient has no known allergies or adverse reactions. Family History Family Member Diagnosis Comments Start Date Stop Date Source Natural father Arthritis [facility] Natural father Heart disease [facility] Natural father Heart disease [facility] Natural mother Neuromuscular disorder [facility] Natural mother ALS [facility] [place] [place] Natural sister Hypertension [facility] Social History Social Habit Start Date Stop Date Quantity Comments Source History SDME [facility] Alcohol Std Drinks Hospit al History SDME [facility] Alcohol Binge [facility] Tobacco use and 2020-10-22 2020-10-22 Never used [facility] exposure 00:00:00 00:00:00 Hospital Alcohol intake 2020-10-22 2020-10-22 Current [facility] 00:00:00 00:00:00 non-drinker of Hospital alcohol (finding) History [facility] 2020-10-21 2020-10-21 1 [facility] Alcohol Frequency 00:00:00 00:00:00 Hospita l Alcohol Comment 2018-11-30 2018-11-30 rarely used [facility] ukes - 00:00:00 00:00:00 [facility] Sex Assigned At [birth year] [facility] 00:00:00 00:00:00 Hospital Smoking Status Start Date Stop Date Source Never smoker [facility] Medications Ordered Filled Start Stop Current Ordering Indication Dosage Frequency Signature Comments Components Source Medication Medication Date Date Medication? Clinician (SIG) Name Name sertraline 2019-11 Yes 50mg QD Take 50 mg M ethodi (ZOLOFT) 50 2-[address] MG tablet 21:12: daily. [address] 59 1/2 tab l daily atorvastati 2019-11 Yes 20mg QD Take 20 mg Methodi n (LIPITOR) 2-[address] 20 mg 21:12: daily. 1/2 Hospit a tablet 59 tab l febuxostat 2019-11 Yes 40mg QD Take 40 mg M ethodi (ULORIC) 40 2-[address] mg tablet 21:12: daily. Hospit a 59 l heparin 2020-1 Yes Inject as Metho di sodium,porc 2-[address] ine 21:12: 5ML SQ Hospita (HEPARIN, 59 INJECTION l PORCINE, ONCE A INJ) WEEK. MTN clonIDINE 2019-11 Yes .1mg Q.5D Take 0.1 Meth laila (CATAPRES) 2-[address] 0.1 MG 21:12: mouth 2 Hospita tablet 59 (two) l times a day. vit B comp 2019-11 Yes Take by Meth laila C/folic 2-[address] acid/vit D3 21:12: Hospit a (DIALYVITE 59 l 800 PLUS D ORAL) aspirin 2019-11 Yes 81mg QD Take 81 mg Meth laila (ECOTRIN) 2-[address] 81 MG 21:12: daily. Hospita enteric 58 l coated tablet lisinopriL Yes 20mg Q.5D Take 20 mg M ethodi (PRINIVIL) 2-[address] 40 mg 00:00: (two) Hospita tablet 00 times a l day. carvediloL Yes 12.5mg Q.5D Take 12.5 Methodi (COREG) 2-[address] 12.5 MG 00:00: mouth 2 Hospita tablet 00 (two) l times a day. potassium 2020- No 20meq QD Take 20 Met hodi chloride 1-30 12-[address] (K-DUR) 20 00:00: 00:00 mouth Hospi ta MEQ CR 00 :00 daily. l tablet pantoprazol 2019- No 40mg Q2D Take 40 mg Methodi e 1-18 12-[address] (PROTONIX) 00:00: 00:00 every Hospi ta 40 MG EC 00 :00 other day. l tablet metoclopram 2018-11 Yes 1{tbl} Q.[id number] Take 1 Methodi yaw 2-[id number] (REGLAN) 5 00:00: 3D mouth [address] MG tablet 00 (three) l times a day. sevelamer Yes 800mg Q.[id number] 800 mg 3 Methodi (RENVELA) 9-18 [id number] (three) s t 800 mg 00:00: 3D times a Hospita tablet 00 day with l meals. epoetin 2020- No 91959M Q.[id number] Inject Methodi zayda-epbx 6-12 12-08 [id number] 13,000 s t 10,000 00:00: 00:00 3W Units Hospita unit/mL 00 :00 under the l solution skin 3 10,000 (three) Units, times a epoetin week. zayda-epbx 3,000 unit/mL solution 3,000 Units injection furosemide 0 Yes 40mg Q2D Take 40 mg M ethodi (LASIX) 40 5-[address] mg tablet 00:00: every Hospita 00 other day. l metoprolol 0 Yes 50mg Q.5D Take [address] (TOPROL-XL) 1-16 by mouth 2 Christina kes - 50 MG 24 hr 11:03: (two) Medic al tablet 15 times Center daily. atorvastati 0 Yes 20mg QD Take [address] [facility] (LIPITOR) 1-16 by mouth Luke s - 40 MG 11:03: daily . Medical tablet 15 [place] cholecalcif 0 Yes 1000U QD Take 1,[address] naresh, 1-16 Units by [facility] - vitamin D3, 11:03: mouth Medic al 1,000 unit 15 daily. [place] capsule doxazosin 0 Yes 2mg Q.5D Take [address] (CARDURA) 2 1-16 by mouth 2 Christina kes - MG tablet 11:03: (two) Medical 15 times Center daily. sertraline 20190 Yes 25mg QD Take [address] HCl 1-16 by mouth [facility] - (SERTRALINE 11:03: daily . Med ical ORAL) 15 Center hydroxychlo 2019-0 Yes QD Take by [facility] roquine 1-16 mouth [facility] - (PLAQUENIL) 11:03: daily. Medi jaxon 200 mg 15 Center tablet cycloSPORIN 2019-0 Yes 1[drp] Q.5D Place [address] E 1-16 drop into [facility] - (RESTASIS) 11:03: both eyes Me dical 0.05 % 15 2 (two) Center ophthalmic times emulsion daily. dilTIAZem 2019-0 Yes 180mg QD Take [address] (CARDIZEM 1-16 mg by [facility] - CD) 180 MG 11:03: mouth Medica l 24 hr 15 daily. [place] capsule calcitriol Yes .25ug QD Take 0.[address] (ROCALTROL) 1-16 mcg by [facility] - 0.25 MCG 11:03: mouth Medical capsule 15 daily. Center aspirin 81 Yes 81mg QD Take [address] MG EC 1-16 by mouth [facility] - tablet 11:03: daily. Medical 15 Center fluticasone Yes 1{puff} Q.5D Inhale [address] (FLOVENT 1-16 puff by [facility] - HFA) 110 11:03: mouth via Medi jaxon mcg/actuati [address] on inhaler (two) times daily. sodium Yes QD [address] bicarbonate 1-16 teaspoonfu Christina kes - , bulk, 11:03: l by Medical Powd 15 Miscellane Center ous route daily. Vital Signs Vital Name Observation Time Observation Value Comments Source Systolic blood 2020-10-21 20:25:00 152 mm[Hg] [facility] pressure Diastolic blood 2020-10-21 20:25:00 77 mm[Hg] Metho [facility] pressure Heart rate 2020-10-21 20:25:00 60 /min [facility] Body height 2020-10-21 20:25:00 167.6 cm [facility] Body weight 2020-10-21 20:25:00 68.04 kg [facility] BMI 2020-10-21 20:25:00 24.21 kg/m2 [facility] Procedures Procedure Date / Time Performed Performing Clinician Sour e ECG 12-LEAD 2020-10-22 21:59:[address] [facility] [place] TTE COMPLETE, WO 2020-10-22 21:00:00 [facility] CONTRAST, W DOPPLER ([id number]) Plan of Care Planned Activity Planned Date Details Comments Source Future Scheduled 2020-09-[address] [facility] - Test 00:00:00 malignant neoplasm of Medica l Center breast (procedure) [code = 683479500] Future Scheduled 2020-07-16 INFLUENZA VACCINE (#1) [facility] - Test 00:00:00 [code = INFLUENZA Medical Ce nter VACCINE (#1)] Future Scheduled 2019-11-[address] [facility] - Test 00:00:00 malignant neoplasm of Medica l Center colon (procedure) [code = 555731359] Future Scheduled 2017-10-[address] [facility] - Test 00:00:00 WELLNESS (YEAR 2 or Medical Center FIRST YEAR if no IPPE) [code = MEDICARE ANNUAL WELLNESS (YEAR 2 or FIRST YEAR if no IPPE)] Future Scheduled 2016 PNEUMOCOCCAL 65+ Y[facility] - Test 00:00:00 (1 of 1 - Medical Center [id number] PCV13) [code = PNEUMOCOCCAL 65+ YRS (1 of 1 - [id number] PCV13)] Future Scheduled COVID-19 VACCINE (1) [facility] Test [code = COVID-19 VACCINE (1)] Future Scheduled BREAST CANCER [facility] Test SCREENING [code = BREAST CANCER SCREENING] Future Scheduled COLONOSCOPY SCREENING [facility] Test [code = COLONOSCOPY SCREENING] Future Scheduled SHINGLES VACCINES (#1) [facility] Test [code = SHINGLES VACCINES (#1)] Future Scheduled INFLUENZA VACCINE [facility] Test [code = INFLUENZA VACCINE] Encounters Start End Encounter Admission Attending Care Care Encounter Source Date/Time Date/Time Type Type Clinicians Facility Department ID 2021-06-02 2021-06-02 [address].840.114 [id number] 00:00:00 00:00:00 Only Parra A MULTISPEC 350.1.13.10 IALTY 4.2.7.2.686 [place] [id number] AND JOE [facility] DI[facility]ETES [facility] 2021-05-29 2021-05-29 Telephone [address]840.114 [id number] 00:00:00 00:00:00 Parra A MULTISPEC 350.1.13.10 IALTY 4.2.7.2.686 [place] [id number] AND JOE 312 [facility] 2021-05-28 2021-05-28 Telephone [address].114 [id number] [id number] 00:00:00 00:00:00 Parra A MULTISPEC 350.1.13.10 IALTY 4.2.7.2.686 [place] [id number] AND JOE 312 [facility] 2021-05-26 2021-05-26 [facility] 1.2.840.114 [id number] 00:00:00 00:00:00 Review Fidel Arias MULTISPEC 350.1.13.10 IAY 4.2.7.2.686 [place] [id number] AND DIAZ 312 [facility] 2021-05-26 2021-05-26 [facility] 1.2.840.114 [id number] 00:00:00 00:00:00 Management Kat Peña MULTISPEC 350.1.13.10 IAY 4.2.7.2.686 [place] [id number] AND DIAZ 189 [facility] 2021-05-14 2021-05-14 [facility] 1.2.840.114 [id number] 09:18:12 23:59:00 Encounter Yens goodwin 350.1.13.10 Igg[place] 4.2.7.2.686 [place] [id number] 2021-04-21 2021-04-21 Orders Doctor NESS 1.2.840.114 [id number] 00:00:00 00:00:00 Only Unassigned, JACQUIE 350.1.13.10 [place] [facility] 4.2.7.2.686 [id number] 2021-03-05 2021-03-05 Office [facility] 1.2.840.114 [id number] 12:28:23 15:45:06 Visit Samivinicio Macdonald MULTISPEC 350.1.13.10 [place] 4.2.7.2.686 [place] [id number] AND JOE 312 [facility] 2021-01-14 2021-01-14 Orders Doctor NESS 1.2.840.114 [id number] 00:00:00 00:00:00 Only Unassigned, JACQUIE 350.1.13.10 [place] [facility] 4.2.7.2.686 [id number] [id number] 2020-12-19 2020-12-19 Telephone Julio 1.2.840.1 [id number] [id number] [place] 00:00:00 00:00:[address] M[address] 3.430.2.7 Hospit a .3.692801 l .8 2020-10-22 2020-10-22 Multidisci Leandro, 1.2.840.1 [id number] Methodi 14:52:35 16:10:45 plinary Joe Berger 92772.1.1 508 s t Visit 3.430.2.7 Hospit a .3.299046 l .8 2020-10-22 2020-10-22 Outpatient [facility] [id number] [place] 00:00:00 00:00:[address] JOE [address] 2020-10-22 2020-10-22 Travel 1.2.840.1 1.2.288.619 [id number] Methodi 00:00:00 00:00:[address] 3.430.2.7 0.2.7.3.698 Ho spita .3.117382 084.8 l .8 2020-10-22 2020-10-22 Outpatient [facility] [id number] [place] 00:00:00 00:00:00 JOE [address] 2020-10-21 2020-10-21 Travel 1.2.840.1 1.2.171.801 [id number] Methodi 00:00:00 00:00:[address] 3.430.2.7 0.2.7.3.698 Ho spita .3.473522 084.8 l .8 2020-04-23 2020-04-23 Outpatient [facility] [id number] [place] 00:00:00 00:00:00 JOE [address] 2020-04-23 2020-04-23 Outpatient [facility] [id number] [place] 00:00:00 00:00:00 JOE [address] 2020-01-17 2020-01-17 Outpatient YOUSUF [facility] [id number] [place] 00:00:00 00:00:00 MIROSLAVA [address] 2020-01-17 2020-01-17 Outpatient TO, [facility] [id number] [address] [place] 00:00:00 00:00:00 MIROSLAVA [address] 2020-01-17 2020-01-17 Outpatient TO, [facility] [id number] [address] [place] [address] 00:00:00 00:00:00 MIROSLAVA [address] 2020-01-17 2020-01-17 Outpatient TO, [facility] [id number] [place] 00:00:00 00:00:00 MIROSLAVA [address] 2020-01-17 2020-01-17 Outpatient TO, [facility] [id number] [address] [place] [address] 00:00:00 00:00:00 MIROSLAVA [address] 2020-01-17 2020-01-17 Outpatient TO, [facility] [id number] [address] [place] [address] 00:00:00 00:00:00 MIROSLAVA [address] 2020-01-17 2020-01-17 Outpatient TO, [facility] [id number] [address] [place] [address] 00:00:00 00:00:00 MIROSLAVA [address] 2020-01-17 2020-01-17 Outpatient TO, [facility] [id number] [address] [place] [address] 00:00:00 00:00:00 MIR[address]LAVA [address] 2020-01-15 2020-01-15 Outpatient OPPERMANN, [facility] 021 2100 [id number] [place] 00:00:00 00:00:00 ANEL [address] 2020-01-14 2020-01-14 Outpatient TO, [facility] [id number] [place] 00:00:00 00:00:00 MIROSLAVA [address] 2020-01-13 2020-01-13 Outpatient TO, [facility] [id number] [place] 00:00:00 00:00:00 MIROSLAVA [address] 2020-01-08 2020-01-08 Outpatient OPPERMANN, [facility] 2100 [id number] [place] 00:00:00 00:00:00 ANEL [address] 2019-08-30 2019-08-30 Outpatient OPPERMANN, [facility] 021 2100 [id number] [place] 00:00:00 00:00:00 ANEL [address] 2019-08-28 2019-08-28 Outpatient OPPERMANN, [facility] 021 [id number] [id number] [place] 00:00:00 00:00:00 ANEL [address] Results Test Description Test Time Test Comments Results Result Comments Source ECG 12 lead 2020-10-23 15:07:40 Test Item Value Reference Range Interpretation Comme nts Ventricular rate (test code = 253) Atrial rate (test code = 255) AL interval (test code = 266) QRSD interval (test code = 260) QT interval (test code = 264) QTC interval (test code = 265) QRS axis 1 (test code = 268) T wave axis (test code = 270) EKG impression (test code = 273) AV sequential or dual chamber elec tronic pacemaker-In automated comparison with ECG of 23-APR-2020 14:14,-No significant change was found- [facility] [place] [id number] 16:29:00 Test Item Value Reference Range Interpretation Comments CULTURE (BEAKER) (test >100,000 col/mL skin code = 1095) stanley CYTOMEGALOVIRUS ANTIBODY, [id number] 12:23:00 Test Item Value Reference Range Interpretation Comments CYTOMEGALOVIRUS IGM ANTIBODY Negative Negative, Equivocal (BEAKER) (test code = 3437) CMV IgM Result Interpretation: </= 0.8 Al Negative 0.9-1.0 Al Equivocal >/= 1.1 Al PositiveCYTOMEGALOVIRUS ANTIBODY, [id number] 12:18:00 Test Item Value Reference Range Interpretation Comments CYTOMEGALOVIRUS, IGG (BEAKER) Positive Negative, Equivocal A (test code = 3429) CMV IgG Result Interpretation: </= 0.8 Al Negative 0.9-1.0 Al Equivocal >/=1.1 Al PositiveEBV ANTIBODY, [id number] 12:18:00 Test Item Value Reference Range Interpretation Comments LAUREEN WEBSTER VIRAL CAPSID Positive Negative, Equivocal A ANTIGEN IGG (BEAKER) (test code = 3415) Laureen Webster Viral Capsid Antigen IgG Result Interpretation: </= 0.8 Al Negative 0.9-1.0 Al Equivocal >/= 1.1 Al PositiveCARDIOLIPIN ANTIBODIES, IGG AND [id number] 12:18:00 Test Item Value Reference Range Interpretation Comments ANTICARDIOLIPIN IGG ANTIBODY (BEAKER) < GPL <20.0 (test code = 712) ANTICARDIOLIPIN IGM ANTIBODY (BEAKER) < MPL <20.0 (test code = 713) Anticardiolipin IgG Result Interpretation: <20.0 GPL Normal>/= 20.0 GPL PositiveAnticardiolipin IgM Result Interpretation: <20.0 MPL Normal>/= 20.0 MPL PositiveDOUBLE-STRANDED DNA (DSDNA) [id number] 11:08:00 Test Item Value Reference Range Interpretation Comments ANTI-DNA DS (SportsBeat.comAKER) (test code = Negative 1055) EBV ANTIBODY, [id number] 10:52:00 Test Item Value Reference Range Interpretation Comments LAUREEN WEBSTER VIRAL CAPSID Negative Negative, Equivocal ANTIGEN IGM (Altar) (test code = 3418) Laureen Webster Viral Capsid Antigen IgM Result Interpretation: </= 0.8 Al Negative 0.9-1.0 Al Equivocal >/= 1.1 Al PositiveVARICELLA ZOSTER ANTIBODY, [id number] 10:52:00 Test Item Value Reference Range Interpretation Comments VARICELLA ZOSTER IGG (AL) (Altar) 7.3 (test code = 3197) VARICELLA ZOSTER RESULT INTERPRETATIONS: <=0.8 Al Nonreactive: Presumed non-immune to VZV 0.9-1.0 Al Equivocal >=1.1 Al Reactive: Presumed immune to [id number] 13:57:00 Test Item Value Reference Range Interpretation Comments RPR SCREEN (Altar) (test code = Nonreactive Nonreactive 420) 1:1 MIXING STUDY, [id number] 11:12:00 Test Item Value Reference Range Interpretation Comments PROTIME (BEAKER) (test code = 13.8 seconds 11.7-14.7 759) PARTIAL THROMBOPLASTIN TIME 31.6 seconds 22.5-36.0 (BEAKER) (test code = 760) PT 1/1 MIX (BEAKER) (test code = 13.5 SECS 11.7-14.7 1595) PTT 1/1 MIX (BEAKER) (test code 31.9 SECS 22.5-36.0 = 1596) HEPATITIS B SURFACE [id number] 10:16:00 Test Item Value Reference Range Interpretation Comments HEPATITIS B SURFACE ANTIBODY < mIU/mL <8.0 (BEAKER) (test code = 647) HEPATITIS B SURFACE [id number] 09:48:00 Test Item Value Reference Range Interpretation Comments HEPATITIS B SURFACE ANTIGEN (2) Nonreactive Nonreactive (BEAKER) (test code = 2585) HEPATITIS B CORE ANTIBODY, [id number] 09:48:00 Test Item Value Reference Range Interpretation Comments HEPATITIS B CORE IGM ANTIBODY Nonreactive Nonreactive (BEAKER) (test code = 645) HEPATITIS C [id number] 09:42:00 Test Item Value Reference Range Interpretation Comments HEPATITIS C ANTIBODY (BEAKER) Nonreactive Nonreactive (test code = 367) HIV-1 ANTIGEN WITH HIV-1/2 [id number] 09:42:00 Test Item Value Reference Range Interpretation Comments HIV-1 ANTIGEN WITH HIV 1\T\2 Nonreactive Nonreactive ANTIBODY (2) (BEAKER) (test code = 2586) HEMOGLOBIN [id number] 09:33:00 Test Item Value Reference Range Interpretation Comments HEMOGLOBIN A1C (BEAKER) (test code = 5.2 % 4.3-6.1 368) COMPLEMENT COMPONENT [id number] 09:29:00 Test Item Value Reference Range Interpretation Comments C4 COMPLEMENT (BEAKER) (test code = 39 mg/dL 15-57 394) COMPLEMENT COMPONENT [id number] 09:29:00 Test Item Value Reference Range Interpretation Comments C3 COMPLEMENT (BEAKER) (test code = 82 mg/dL 82-193 393) COMPREHENSIVE METABOLIC [id number] 09:29:00 Test Item Value Reference Range Interpretation Comments TOTAL PROTEIN 6.9 gm/dL 6.0-8.3 (BEAKER) (test code = 770) ALBUMIN (BEAKER) 3.9 g/dL 3.5-5.0 (test code = 1145) ALKALINE PHOSPHATASE 92 U/L 40-150 (BEAKER) (test code = 346) BILIRUBIN TOTAL 0.3 mg/dL 0.2-1.2 (BEAKER) (test code = 377) SODIUM (BEAKER) (test 140 meq/L 136-145 code = 381) POTASSIUM (BEAKER) 4.1 meq/L 3.5-5.1 (test code = 379) CHLORIDE (BEAKER) 106 meq/L 98-107 (test code = 382) CO2 (BEAKER) (test 20 meq/L 22-29 L code = 355) BLOOD UREA NITROGEN 70 mg/dL 7-21 H (BEAKER) (test code = 354) CREATININE (BEAKER) 5.40 mg/dL 0.57-1.25 H (test code = 358) GLUCOSE RANDOM 117 mg/dL 70-105 H (BEAKER) (test code = 652) CALCIUM (BEAKER) 9.6 mg/dL 8.4-10.2 (test code = 697) AST (SGOT) (BEAKER) 19 U/L 5-34 (test code = 353) ALT (SGPT) (BEAKER) 11 U/L 6-55 (test code = 347) EGFR (BEAKER) (test 8 mL/min/1.73 ESTIMAT ED GFR IS code = 1092) sq m NOT ACCURATE CREATININE CLEARANCE IN PREDICTING GLOMERULAR FILTRATION RATE . ESTIMATED GFR I S NOT APPLICABLE FOR DIALYSIS PATIEN TS. URIC [id number] 09:25:00 Test Item Value Reference Range Interpretation Comments URIC ACID (BEAKER) (test code = 10.3 mg/dL 2.6-7.2 H 773) [id number] 09:25:00 Test Item Value Reference Range Interpretation Comments PHOSPHORUS (BEAKER) (test code = 6.7 mg/dL 2.3-4.7 H 604) GAMMA GLUTAMYL TRANSFERASE (GGT)2018-11-30 09:25:00 Test Item Value Reference Range Interpretation Comments GAMMA GLUTAMYL TRANSFERASE (BEAKER) 36 U/L 9-64 (test code = 364) LACTATE DEHYDROGENASE (LDH)2018-11-30 09:25:00 Test Item Value Reference Range Interpretation Comments LACTATE DEHYDROGENASE (BEAKER) (test 285 U/L 125-220 H code = 635) PTH, [id number] 09:19:00 Test Item Value Reference Range Interpretation Comments PARATHYROID HORMONE INTACT 315.4 pg/mL 8.5-72.5 H (BEAKER) (test code = 577) URINALYSIS W/ [id number] 09:08:00 Test Item Value Reference Range Interpretation Comments COLOR (BEAKER) (test code = 470) Yellow CLARITY (BEAKER) (test code = 469) Clear SPECIFIC GRAVITY UA (BEAKER) (test 1.011 1.001-1.035 code = 468) PH UA (BEAKER) (test code = 467) 5.5 5.0-8.0 PROTEIN UA (BEAKER) (test code = 200 mg/dL Negative A 464) GLUCOSE UA (BEAKER) (test code = Negative Negative 365) KETONES UA (BEAKER) (test code = Negative Negative 371) BILIRUBIN UA (BEAKER) (test code = Negative Negative 462) BLOOD UA (BEAKER) (test code = Trace Negative A 461) NITRITE UA (BEAKER) (test code = Negative Negative 465) LEUKOCYTE ESTERASE UA (BEAKER) Negative Negative (test code = 466) UROBILINOGEN UA (BEAKER) (test 0.2 mg/dL 0.2-1.0 code = 463) RBC UA (BEAKER) (test code = 519) < /HPF WBC UA (BEAKER) (test code = 520) 7 /HPF BACTERIA (BEAKER) (test code = Occasional 517) SQUAMOUS EPITHELIAL (BEAKER) (test 1 /HPF code = 516) SOURCE(BEAKER) (test code = 2795) [id number] 08:58:00 Test Item Value Reference Range Interpretation Comments PROTIME (BEAKER) (test code = 13.9 seconds 11.7-14.7 759) INR (BEAKER) (test code = 370) 1.1 <=5.9 PARTIAL THROMBOPLASTIN TIME 30.4 seconds 22.5-36.0 (BEAKER) (test code = 760) RECOMMENDED COUMADIN/WARFARIN INR THERAPY RANGESSTANDARD DOSE: 2.0 - 3.0 Includes: PROPHYLAXIS forvenous thrombosis, systemic embolization; TREATMENT for venous thrombosis and/or pulmonary embolus.HIGH RISK: Target INR is 2.5-3.5 for patients with mechanical heart valves.CBC W/PLT COUNT & [employer] 2018-11-30 08:47:00 Test Item Value Reference Range Interpretation Comments WHITE BLOOD CELL COUNT (BEAKER) 6.3 K/ L 3.5-10.5 (test code = 775) RED BLOOD CELL COUNT (BEAKER) 3.17 M/ L 3.93-5.22 L (test code = 761) HEMOGLOBIN (BEAKER) (test code = 9.6 GM/DL 11.2-15.7 L 410) HEMATOCRIT (BEAKER) (test code = 29.9 % 34.1-44.9 L 411) MEAN CORPUSCULAR VOLUME (BEAKER) 94.3 fL 79.4-94.8 (test code = 753) MEAN CORPUSCULAR HEMOGLOBIN 30.3 pg 25.6-32.2 (BEAKER) (test code = 751) MEAN CORPUSCULAR HEMOGLOBIN CONC 32.1 GM/DL 32.2-35.5 L (BEAKER) (test code = 752) RED CELL DISTRIBUTION WIDTH 12.6 % 11.7-14.4 (BEAKER) (test code = 412) PLATELET COUNT (BEAKER) (test 128 K/CU MM 150-450 L code = 756) MEAN PLATELET VOLUME (BEAKER) 11.1 fL 9.4-12.3 (test code = 754) NUCLEATED RED BLOOD CELLS 0 /100 WBC 0-0 (BEAKER) (test code = 413) NEUTROPHILS RELATIVE PERCENT 71 % (BEAKER) (test code = 429) LYMPHOCYTES RELATIVE PERCENT 19 % (BEAKER) (test code = 430) MONOCYTES RELATIVE PERCENT 8 % (BEAKER) (test code = 431) EOSINOPHILS RELATIVE PERCENT 2 % (BEAKER) (test code = 432) BASOPHILS RELATIVE PERCENT 0 % (BEAKER) (test code = 437) NEUTROPHILS ABSOLUTE COUNT 4.50 K/ L 1.56-6.13 (BEAKER) (test code = 670) LYMPHOCYTES ABSOLUTE COUNT 1.20 K/ L 1.18-3.74 (BEAKER) (test code = 414) MONOCYTES ABSOLUTE COUNT (BEAKER) 0.51 K/ L 0.24-0.36 H (test code = 415) EOSINOPHILS ABSOLUTE COUNT 0.10 K/ L 0.04-0.36 (BEAKER) (test code = 416) BASOPHILS ABSOLUTE COUNT (BEAKER) 0.01 K/ L 0.01-0.08 (test code = 417) IMMATURE GRANULOCYTES-RELATIVE 0 % 0-1 PERCENT (BEAKER) (test code = 4795)
--- NOTE | 2021-06-23 15:02 | RAD REPORT ---
EXAM DESCRIPTION: RAD - Chest Single View - 06/23/2021 2:45 pm CLINICAL HISTORY: COUGH COMPARISON: Abdomen 1 View (KUB) dated 01/13/2021; Chest Pa And Lat (2 Views) dated 01/08/2021; Chest S terrence View dated 09/23/2019; Chest Single View dated 03/27/2019 FINDINGS: No evidence of edema or pneumonia. Pacemaker/ICD. Sternotomy. Normal heart size.No acute o sseous abnormality. No significant pleural effusions or pneumothorax. IMPRESSION: No acute cardiopulmonary disease.
--- NOTE | 2021-06-23 17:28 | RAD REPORT ---
EXAM DESCRIPTION: CT - Abdomen Pelvis Wo Contrast - 06/23/2021 5:15 pm CLINICAL HISTORY: Abdominal pain. Diarrhea;Abd pain COMPARISON: Abdomen Pelvis Wo Contrast dated 12/06/2019; Abdomen Pelvis Wo Contrast dated 03/07/20 19 TECHNIQUE: CT imaging of the abdomen and pelvis was performed without contrast. Solid organ, bowel a nd vascular assessment is limited due to lack of IV and oral contrast. All CT scans are performed using dose optimization technique as appropriate and may include automated exposure control or mA/KV adjustment according to patient size. FINDINGS: The lower lung rivas are clear.Coronary artery calcifications and pacemaker. No focal liver lesions are seen. The gallbladder is within normal limits. The spleen is within normal limits. The adrenal glands are within normal limits. The pancreas is within normal limits. Atrophic kidneys bilaterally with small stones versus vascular calcifications. No bowel obstruction is seen. C alcified uterine fibroid. Peritoneal dialysis catheter. Diverticulosis without diverticulitis. Trace ascites. Aortic atherosclerosis. The osseous structures are within normal limits. IMPRESSION: No acute intra-abdominal or pelvic findings. Incidental findings as noted above. A limited non-contrast examination was performed as detailed.
[2021-06-23] MEDS ORDERED: ONDANSETRON 4 MG/2 ML VIAL ONE (17:36)
[2021-06-23] MEDS ORDERED: NA CHLORIDE 0.9% 250 ML ONE (17:36)
[2021-06-23 18:07] LABS: Absolute Lymphocytes (CBC) 1.4 K/uL (0.7-4.9); Basophils % 0.4 % (0-1.3); Hematocrit 32.5 % (36.0-45.0); Lymphocytes % 22.5 % (15.3-44.8); MPV 8.8 fL (7.6-11.3); RBC Red Blood Cell Count 3.41 M/uL (3.86-4.86)
[2021-06-23 18:08] LABS: Protime INR 1.21
[2021-06-23 18:34] LABS: Anisocytosis 1+; Blood Morphology Comment NOTED (NOT SEEN); Platelet Estimate DECR; Poikilocytosis 2+; White Blood Cell Scan OK (OK)
[2021-06-23 18:44] LABS: Albumin 3.4 g/dL (3.4-5.0); Bilirubin Direct 0.2 mg/dL (0-0.2); Bilirubin Total 0.4 mg/dL (0.2-1.0); Magnesium 2.2 mg/dL (1.8-2.4); Protein, Total 7.7 g/dL (6.4-8.2); Troponin (Emerg Dept Use Only) 0.22 ng/mL (0.0-0.045)
[2021-06-23 18:48] LABS: Potassium 2.8 mmol/L (3.5-5.1)
--- NOTE | 2021-06-23 19:19 | EDPHYS ---
Physician Documentation [facility] Name: Cheyanne Haywood Age: 70 yrs Sex: Female : 1950 Arrival Date: 06/23/2021 Time: 14:23 Bed 25 Private MD: Nghia Jones E ED Physician Jorge Suh HPI: 06/23 17:07 This 70 yrs old Female presents to ER via Ambulatory with complaints of pm1 Shortness Of Breath, Cough, Vomiting, Urinary Problem. 17:07 The patient has shortness of breath With exertion. Onset: The symptoms/episode pm1 began/occurred 2.5 week(s) ago. Duration: The symptoms Shortness of breath with exertion only. The patient's shortness of breath is aggravated by exertion. Associated signs and symptoms: Pertinent positives: Neck and back pain with shortness of breath. Nonproductive cough. Positive for nausea and dry heaving, diarrhea. Abdominal cramping, Pertinent negatives: fever. Severity of symptoms: in the emergency department the symptoms are worse. The patient has been recently seen by a physician: Dr. Knight earlier today, with similar presenting complaints, He increased her dosage of Lasix to 80 mg today. 17:07 Patient is also complaining of no urination for 2 days. Patient has been on peritoneal pm1 dialysis for 2 years. Historical: - Allergies: 14:54 No Known Allergies; kg - Home Meds: 14:54 aspirin 81 mg Oral chew once daily [Active]; atorvastatin 40 mg Oral tab 0.5 tab once kg daily [Active]; calcitriol 0.25 mcg Oral cap [Active]; Cartia XT 240 mg Oral cp24 1 cap once daily for Hypertension [Active]; Lasix 80 mg oral tab 1 tab 2 times per day [Active]; sertraline 25 mg Oral tab 1 tab once daily [Active]; midodrine oral [Active]; - PMHx: 14:54 Depression; ESRD; Hypertension; kidney problems; Lupus; PD- nightly; kg - PSHx: 14:54 Aortia repair; TAVR; kg - Immunization history:: Adult Immunizations up to date, Client reports receiving the 1st dose of the Covid vaccine, Moderna Client reports receiving the 2nd dose of the Covid vaccine, Date received: January 2021 Moderna Client reports receiving the 1st dose of the Covid vaccine, December 2020. - Social history:: Smoking status: Patient denies any tobacco usage or history of. ROS: 17:07 Eyes: Negative for injury, pain, redness, and discharge, ENT: Negative for injury, pm1 pain, and discharge. 17:07 MS/Extremity: Negative for injury and deformity, Skin: Negative for injury, rash, and discoloration, Neuro: Negative for headache, weakness, numbness, tingling, and seizure. 17:07 Constitutional: Positive for poor PO intake, Negative for fever. 17:07 Cardiovascular: Negative for chest pain, edema, palpitations. 17:07 Respiratory: Positive for cough, shortness of breath, on exertion. 17:07 Abdomen/GI: Positive for abdominal pain, nausea, diarrhea, Negative for vomiting, constipation. 17:07 : Positive for No urination for the past 2 days. Patient on peritoneal dialysis for 2 years, Negative for flank pain. 17:07 All other systems are negative. Exam: 17:14 Constitutional: This is a well developed, well nourished patient who is awake, alert, pm1 and in no acute distress. Head/Face: Normocephalic, atraumatic. 17:14 Back: No spinal tenderness. No costovertebral tenderness. Full range of motion. Skin: Warm, dry with normal turgor. Normal color with no rashes, no lesions, and no evidence of cellulitis. MS/ Extremity: Pulses equal, no cyanosis. Neurovascular intact. Full, normal range of motion. 17:14 Eyes: Exam is negative for acute changes, Extraocular movements: no acute changes, Conjunctiva: normal, no acute changes, no injection, Sclera: no acute changes, icterus, is not appreciated. 17:14 ENT: Mouth: Lips: normal, Oral mucosa: normal, pink and intact, moist. 17:14 Cardiovascular: Exam negative for acute changes, Rate: normal, Rhythm: regular, Pulses: no pulse deficits are appreciated, Heart sounds: normal, normal S1and S2, Edema: is not appreciated. 17:14 Respiratory: Exam negative for acute changes, respiratory distress, shortness of breath, Breath sounds: are clear throughout. 17:14 Abdomen/GI: Inspection: abdomen appears normal, Palpation: abdomen is soft and non-tender, in all quadrants. 17:14 Neuro: Exam negative for acute changes, Orientation: is normal, Mentation: is normal, Motor: is normal, moves all fours. Vital Signs: 14:50 BP 89 / 68; Pulse 92; Resp 20; Temp 98.1(O); Pulse Ox 100% on R/A; Weight 67.2 kg (R); kg Height 5 ft. 6 in. (167.64 cm); Pain 6/10; 18:10 BP 101 / 70; Pulse 72; Resp 16; Pulse Ox 100% on R/A; zb 14:50 Body Mass Index 23.91 (67.20 kg, 167.64 cm) kg MDM: 16:58 Patient medically screened. pm1 19:15 Physician consultation: Angie Cerda MD regarding consult, patient's condition, and pm1 will see patient Would like normal saline at 50 mL/h. Hold Procardia and Lasix. Troponin repeat x3. 19:18 Data reviewed: vital signs. Data interpreted: Pulse oximetry: on room air is 100 %. pm1 Interpretation: normal. 19:42 Physician consultation: Talon CANCHOLA regarding admission, patient's condition, and pm1 will see patient in ED, shortly. 06/23 14:48 Order name: Flu; Complete Time: 16:25 kg 06/23 16:51 Order name: SARS-COV-2 RT PCR; Complete Time: 17:00 EDMS 06/23 17:01 Order name: Basic Metabolic Panel; Complete Time: 18:56 pm1 06/23 17:01 Order name: CBC with Diff; Complete Time: 18:36 pm1 06/23 17:01 Order name: LFT's; Complete Time: 18:56 pm1 06/23 17:01 Order name: Magnesium; Complete Time: 18:56 pm1 06/23 17:01 Order name: NT PRO-BNP; Complete Time: 18:56 pm1 06/23 17:01 Order name: PT-INR; Complete Time: 18:16 pm1 06/23 17:01 Order name: Troponin (emerg Dept Use Only); Complete Time: 18:56 pm1 06/23 18:34 Order name: CBC Smear Scan; Complete Time: 18:36 EDMS 06/24 02:28 Order name: CBC with Automated Diff EDMS 06/24 02:35 Order name: Troponin I EDMS 06/24 02:54 Order name: Comprehensive Metabolic Panel EDRI 06/23 14:28 Order name: XRAY Chest (1 view); Complete Time: 16:25 rn 06/23 17:01 Order name: EKG; Complete Time: 17:01 pm1 06/23 17:01 Order name: Cardiac monitoring; Complete Time: 18:37 pm1 06/23 17:01 Order name: EKG - Nurse/Tech; Complete Time: 18:37 pm1 06/23 17:01 Order name: IV Saline Lock; Complete Time: 18:09 pm1 06/23 17:01 Order name: Labs collected and sent; Complete Time: 18:09 pm1 08 17:02 Order name: CT Abd/Pelvis - Without Contrast; Complete Time: 17:31 pm1 06/23 19:51 Order name: CONS Physician Consult EDRI 06/24 02:54 Order name: Phosphorus [facility] 06/24 02:54 Order name: Lipid Profile [facility] 06/24 02:54 Order name: T4 Free [facility] 06/24 02:54 Order name: Magnesium [facility] 06/24 02:54 Order name: Thyroid Stimulating Hormone [facility] 06/23 17:01 Order name: O2 Per Protocol; Complete Time: 17:29 pm1 06/23 17:01 Order name: O2 Sat Monitoring; Complete Time: 17:29 pm1 EC:29 Rate is 73 beats/min. Rhythm is regular, Paced. No Q waves. T waves are Normal. No ST pm1 changes noted. Clinical impression: Electronic ventricular pacemaker. Administered Medications: 18:09 Drug: Zofran (Ondansetron) 4 mg Route: IVP; Site: right antecubital; zb 19:00 Follow up: Response: No adverse reaction; Nausea is decreased zb 18:09 Drug: NS 0.9% 250 ml Route: IV; Rate: bolus; Site: right antecubital; zb 22:45 Follow up: Response: No adverse reaction; IV Status: Completed infusion; IV Intake: zb 250ml 20:30 Drug: NS 0.9% 1000 ml Route: IV; Rate: 50 ml/hr; Site: right forearm; zb 22:46 Follow up: Response: No adverse reaction; IV Status: Infusion continued upon admission; zb IV Intake: 150ml Disposition: 06/24 07:06 Co-signature as Attending Physician, Jorge Suh MD I agree with the assessment and rn plan of care. Attestation: The patient's history, exam findings, diagnostics, and a summary of any interventions or procedures was reviewed in detail with Singh Angulo NP. Disposition Summary: 06/23/21 19:18 Hospitalization Ordered Hospitalization Status: Observation pm1 Provider: Talon Trevizo pm1 Condition: Stable pm1 Problem: new pm1 Symptoms: have improved pm1 Bed/Room Type: Standard pm1 Location: Telemetry/MedSurg (observation)(06/24/21 08:24) 1 Room Assignment: 220(06/24/21 08:24) [facility] Diagnosis - Diarrhea, unspecified pm1 - Hypokalemia pm1 - Dehydration pm1 - Elevated troponin pm1 - Uremia pm1 - Dyspnea on exertion pm1 Forms: - Medication Reconciliation Form pm1 - SBAR form pm1 Signatures: Dispatcher [employer] EDMS Jorge Suh MD MD rn Garcia, Cindy, RN Singh Roberts NP WET WASH ASSEMBLER pm1 Dao Milton RN RN ja1 Brown, Zipporah, RN RN zb Graham, Kristen, RN RN kg Corrections: (The following items were deleted from the chart) 06/23 15:38 14:48 CORONAVIRUS+[email or web address] ordered. EDRI EDRI 20:19 19:18 Shortness of breath pm1 pm1 06/24 00:19 06/23 19:18 Telemetry/MedSurg (observation) pm1 06/24 00:19 06/23 19:18 pm1 06/24 08:24 00:19 [facility] ER HOLD cg [facility] 08:24 00:19 ERHOLD- cg [facility]
--- NOTE | 2021-06-23 19:19 | ER ---
Nurse's Notes [facility] Name: Cheyanne Haywood Age: 70 yrs Sex: Female : 1950 Arrival Date: 06/23/2021 Time: 14:23 Bed 25 Private MD: Nghia Jones E Diagnosis: Diarrhea, unspecified;Hypokalemia;Dehydration;Elevated troponin;Uremia;Dyspnea on exertion Presentation: 06/23 14:50 Chief complaint: Patient states: N/V/D, SOB, Cough, neck pain, back pain x 1 week. Pt kg is on PD last treatment last night. Pt stated she hasn't urinated in 2 days and is concerned. Coronavirus screen: Client denies travel out of the [place] in the last 14 days. At this time, unable to obtain information related to travel outside the [place] Client presents with at least one sign or symptom that may indicate coronavirus-19. Standard/surgical mask placed on the client. Provider contacted for isolation considerations. Ebola Screen: Patient negative for fever greater than or equal to 101.5 degrees Fahrenheit, and additional compatible Ebola Virus Disease symptoms Patient denies exposure to infectious person. Patient denies travel to an Ebola-affected area in the 21 days before illness onset. Initial Sepsis Screen: Does the patient meet any 2 criteria? No. Patient's initial sepsis screen is negative. Does the patient have a suspected source of infection? No. Patient's initial sepsis screen is negative. Risk Assessment: Do you want to hurt yourself or someone else? Patient reports no desire to harm self or others. Onset of symptoms was June 16, 2021. 14:50 Method Of Arrival: Ambulatory kg 14:50 Acuity: NORMA 3 kg Triage Assessment: 14:54 General: Appears in no apparent distress. Behavior is calm, cooperative, appropriate kg for age, quiet. Pain: Complains of pain in abdomen. Respiratory: Reports shortness of breath cough that is productive, Onset: The symptoms/episode began/occurred gradually, the patient has mild shortness of breath. Historical: - Allergies: 14:54 No Known Allergies; kg - Home Meds: 14:54 aspirin 81 mg Oral chew once daily [Active]; atorvastatin 40 mg Oral tab 0.5 tab once kg daily [Active]; calcitriol 0.25 mcg Oral cap [Active]; Cartia XT 240 mg Oral cp24 1 cap once daily for Hypertension [Active]; Lasix 80 mg oral tab 1 tab 2 times per day [Active]; sertraline 25 mg Oral tab 1 tab once daily [Active]; midodrine oral [Active]; - PMHx: 14:54 Depression; ESRD; Hypertension; kidney problems; Lupus; PD- nightly; kg - PSHx: 14:54 Aortia repair; TAVR; kg - Immunization history:: Adult Immunizations up to date, Client reports receiving the 1st dose of the Covid vaccine, Moderna Client reports receiving the 2nd dose of the Covid vaccine, Date received: January 2021 Moderna Client reports receiving the 1st dose of the Covid vaccine, December 2020. - Social history:: Smoking status: Patient denies any tobacco usage or history of. Screenin:01 Abuse screen: Denies threats or abuse. Denies injuries from another. Nutritional kg screening: No deficits noted. Tuberculosis screening: No symptoms or risk factors identified. Fall Risk None identified. Assessment: 17:30 Reassessment: Patient appears in no apparent distress at this time. Patient and/or zb family updated on plan of care and expected duration. Pain level reassessed. Patient is alert, oriented x 3, equal unlabored respirations, skin warm/dry/pink. 18:30 Reassessment: Patient appears in no apparent distress at this time. Patient and/or zb family updated on plan of care and expected duration. Pain level reassessed. Patient is alert, oriented x 3, equal unlabored respirations, skin warm/dry/pink. IV fluid infusing. 19:30 Reassessment: Patient appears in no apparent distress at this time. Patient and/or zb family updated on plan of care and expected duration. Pain level reassessed. Patient is alert, oriented x 3, equal unlabored respirations, skin warm/dry/pink. 20:30 Reassessment: Patient appears in no apparent distress at this time. Patient and/or zb family updated on plan of care and expected duration. Pain level reassessed. Patient is alert, oriented x 3, equal unlabored respirations, skin warm/dry/pink. IV fluid infusing. given renal food per ECP. 20:55 Reassessment: hospitalist at bedside. zb 20:58 Cardiovascular: Patient's skin is warm and dry. Rhythm is Respiratory: Airway is patent zb Respiratory effort is even, unlabored, Breath sounds are clear bilaterally. Vital Signs: 14:50 BP 89 / 68; Pulse 92; Resp 20; Temp 98.1(O); Pulse Ox 100% on R/A; Weight 67.2 kg (R); kg Height 5 ft. 6 in. (167.64 cm); Pain 6/10; 18:10 BP 101 / 70; Pulse 72; Resp 16; Pulse Ox 100% on R/A; zb 14:50 Body Mass Index 23.91 (67.20 kg, 167.64 cm) kg ED Course: 14:23 Patient arrived in ED. mr 14:23 Nghia Jones MD is Private Physician. mr 14:43 XRAY Chest (1 view) In Process Unspecified. EDMS 14:54 Triage completed. kg 14:54 Arm band placed on left wrist. kg 16:45 Singh Angulo NP is PHCP. pm1 16:45 Jorge Suh MD is Attending Physician. pm1 17:15 CT Abd/Pelvis - Without Contrast In Process Unspecified. EDMS 17:27 Donna Kim, DEBORAH is Primary Nurse. zb 17:30 EKG done, by ED staff, reviewed by Singh Angulo NP. Inserted saline lock: 22 gauge zb in right antecubital area, using aseptic technique. Blood collected. 19:16 Talon Trevizo PA is Hospitalizing Provider. pm1 22:00 Patient has correct armband on for positive identification. zb 22:00 Patient admitted, IV remains in place. zb 23:41 No provider procedures requiring assistance completed. zb 08 08:32 Assisted to bathroom. bd Administered Medications: 06/23 18:09 Drug: Zofran (Ondansetron) 4 mg Route: IVP; Site: right antecubital; zb 19:00 Follow up: Response: No adverse reaction; Nausea is decreased zb 18:09 Drug: NS 0.9% 250 ml Route: IV; Rate: bolus; Site: right antecubital; zb 22:45 Follow up: Response: No adverse reaction; IV Status: Completed infusion; IV Intake: zb 250ml 20:30 Drug: NS 0.9% 1000 ml Route: IV; Rate: 50 ml/hr; Site: right forearm; zb 22:46 Follow up: Response: No adverse reaction; IV Status: Infusion continued upon admission; zb IV Intake: 150ml Intake: 22:45 IV: 250ml; Total: 250ml. zb 22:46 IV: 150ml; Total: 400ml. zb Outcome: 19:18 Decision to Hospitalize by Provider. pm1 22:00 Admitted to ER Hold. Please see [facility] for further documentation. zb 22:00 Condition: stable 22:00 Instructed on the need for admit. 06/24 09:30 Patient left the ED. iw Signatures: Dispatcher [employer] EDMS Amanda Fountain Chan, Poonam mr Joelle Harvey RN DEBORAH iw Singh Angulo NP SENIOR OCCUPATIONAL THERAPIST pm1 Donna Kim RN RN zb Graham, Kristen, RN RN kg Corrections: (The following items were deleted from the chart) 06/23 20:57 15:30 Reassessment: Patient appears in no apparent distress at this time. Patient zb and/or family updated on plan of care and expected duration. Pain level reassessed. Patient is alert, oriented x 3, equal unlabored respirations, skin warm/dry/pink. family at bedside. Iv fluid bolus administered. zb 20:57 16:30 Reassessment: Patient appears in no apparent distress at this time. Patient zb and/or family updated on plan of care and expected duration. Pain level reassessed. Patient is alert, oriented x 3, equal unlabored respirations, skin warm/dry/pink. zb 20:57 18:30 Reassessment: Patient appears in no apparent distress at this time. Patient zb and/or family updated on plan of care and expected duration. Pain level reassessed. Patient is alert, oriented x 3, equal unlabored respirations, skin warm/dry/pink. IV fluid infusing. zb 06/24 00:11 06/23 22:00 Admitted to Med/surg accompanied by marjorie, via stretcher, room 211, Report zb called to DEBORAH Mims
[2021-06-23] MEDS ORDERED: NA CHLORIDE 0.9% 1,000 ML ONE (20:43)
[2021-06-23] MEDS ORDERED: NA CHLORIDE 0.9% 1,000 ML IV SCH (22:44)
[2021-06-23] MEDS ORDERED: ACETAMINOPHEN 500 MG TAB PO PRN (22:44)
--- NOTE | 2021-06-23 23:18 | P.HP ---
Certification for Inpatient Patient admitted to: Inpatient With expected LOS: <2 Midnights Patient will require the following post-hospital care: None Practitioner: I am a practitioner with admitting privileges, knowledge of patient current condition, hospital course, and medical plan of care. Services: Services provided to patient in accordance with Admission requirements found in Title 42 Section 412.3 of the Code of Federal Regulations Patient History Date of Service: 06/23/21 Reason for admission: hypotension History of Present Illness: Ms. Haywood is a 70 yo F with HTN, ESRD on PD, AoVR w/ defibrillator and pacemaker who presents with hypotension. For the past 2.5 weeks she has had RUSH, back pain and neck pain. She went to the wastewater project manager, and her Lasix was increased. Symptoms continued, and her Lasix was increased again. Symptoms worse with exertion, improve at rest. She says urination has been decreased for the past 2 days. She also reports anorexia, nausea, diarrhea, and diffuse abdominal pain for the past day. K 2.8, BUN 108, Cr 13.3, GFR 3, trop 0.22, BNP [address]19. CXR wnl. CT abdomen wnl. Allergies No Known Drug Allergies Allergy (Verified 04/07/21 12:42) Unknown Home Medications: Aspirin [Aspirin EC 81 MG] 81 mg PO DAILY 04/07/21 Atorvastatin Calcium [Lipitor] 20 mg PO BEDTIME 04/07/21 Azelastine HCl 205.5 mcg NS BID 04/07/21 Carvedilol [Coreg] 25 mg PO BID 04/07/21 Cinacalcet HCl 30 mg PO DAILY 04/07/21 Clonidine HCl [Clonidine HCl ER] 0.1 mg PO DAILYPRN PRN 04/07/21 Epoetin Frederic-Epbx [Retacrit] 13,000 unit SQ PRN PRN 04/07/21 Febuxostat 40 mg PO DAILY 04/07/21 Fluticasone [Flonase 50mcg Nasal [place]] 2 sprays NS BID 04/07/21 Furosemide [Lasix] 40 mg PO DIRECTED 04/07/21 Heparin Sodium,Porcine/Pf [Heparin 500 Unit/5 ml (100/ml)] 500 unit IV SEECOM 04/07/21 Lisinopril [Zestril] 40 mg PO BID 04/07/21 Metoclopramide [Reglan] 5 mg PO TIDWM 04/07/21 Sertraline [Zoloft] 100 mg PO DAILY 04/07/21 Sevelamer Carbonate [Renvela] 3,200 mg PO TIDWM 04/07/21 Vit B Comp C/Folic Acid/Vit D3 [Dialyvite 800 Plus D Wafer] 1 each PO DAILY 04/07/21 - Past Medical/Surgical History Diabetic: No -: Hypertension -: Aortic valve replacement -: Coronary artery disease, CABG x1 vessel -: Lupus -: Chronic renal disease -: Anemia of chronic disease -: Depression -: Aortic valve replacement -: CABG x1 vessel -: Breast biopsies -: D&C Psychosocial/ Personal History: The patient is . She has children. She does not work. - Family History Mother -: Other (see notes) Notes: ALS Father -: Heart disease, Diabetes - Social History Smoking Status: Never smoker Alcohol use: No CD- Drugs: No Caffeine use: No Place of Residence: Home Review of Systems 10-point ROS is otherwise unremarkable Respiratory: Shortness of Breath, SOB with Excertion Gastrointestinal: Nausea, Abdominal Pain, Diarrhea Genitourinary: Retention Musculoskeletal: Neck Pain, Back Pain Physical Examination - Physical Exam General: Alert, In no apparent distress HEENT: Atraumatic, PERRLA, Mucous membr. moist/pink, EOMI, Sclerae nonicteric Neck: Supple, 2+ carotid pulse no bruit, No LAD, Without JVD or thyroid abnormality Respiratory: Clear to auscultation bilaterally, Normal air movement Cardiovascular: Regular rate/rhythm, Normal S1 S2 Gastrointestinal: Normal bowel sounds, No tenderness Musculoskeletal: No tenderness Integumentary: No rashes Neurological: Normal gait, Normal speech, Normal strength at 5/5 x4 extr, Normal tone, Normal affect Lymphatics: No axilla or inguinal lymphadenopathy Urinary: Dialysis catheter - Studies Laboratory Data (last 24 hrs) 06/23/21 17:54: PT 13.9 H, INR 1.21 06/23/21 17:54: WBC 6.30, Hgb 11.0 L, Hct 32.5 L, Plt Count 97 L 06/23/21 17:54: Sodium 137, Potassium 2.8 L*, BUN 108 H, Creatinine 13.30 H*, Glucose 88, Magnesium 2.2 D, Total Bilirubin 0.4, AST 30, ALT 24, Alkaline Phosphatase 208 H Microbiology Data (last 24 hrs): 06/23/21 15:03 Nasopharnyx Influenza Type A Antigen Screen - Final 06/23/21 15:03 Nasopharnyx Influenza Type B Antigen Screen - Final Assessment and Plan - Problems (Diagnosis) (1) Hypotension Current Visit: Yes Status: Acute Qualifiers: Hypotension type: unspecified hypotension type Qualified Code(s): I95.9 - Hypotension, unspecified (2) H/O aortic valve replacement Current Visit: No Status: Chronic (3) ESRD (end stage renal disease) Current Visit: No Status: Chronic (4) Hypertension Onset Date: 11/02/16 Current Visit: No Status: Chronic Qualifiers: Hypertension type: primary hypertension Qualified Code(s): I10 - Essential (primary) hypertension (5) Lupus Onset Date: 11/02/16 Current Visit: No Status: Chronic Qualifiers: Systemic lupus erythematosus type: unspecified Systemic lupus erythematosus organ involvement: unspecified Qualified Code(s): M32.9 - Systemic lupus erythematosus, unspecified - Plan nephrology consulted, cardiology consulted continue NS at 50 cc/hr hold procardia and lasix trend troponins on telemetry repeat EKG in the AM SCDs for DVT ppx O2 as needed recheck BMP in AM Discharge Plan: Home Plan to discharge in: 48 Hours - Advance Directives Does patient have a Living Will: No Does patient have a Durable POA for Healthcare: No - Code Status/Comfort Care Code Status Assessed: Yes (full code ) Critical Care: No Time Spent Managing Pts Care (In Minutes): 70
[2021-06-24 02:26] LABS: Absolute Lymphocytes (CBC) 1.2 K/uL (0.7-4.9); Basophils % 0.4 % (0-1.3); Hematocrit 27.4 % (36.0-45.0); Lymphocytes % 17.7 % (15.3-44.8); MPV 8.9 fL (7.6-11.3)
[2021-06-24 02:45] LABS: Bilirubin Total 0.3 mg/dL (0.2-1.0); Magnesium 2.1 mg/dL (1.8-2.4); Phosphorus 7.2 mg/dL (2.5-4.9); Protein, Total 6.7 g/dL (6.4-8.2); Thyroid Stimulating Hormone 0.635 uIU/mL (0.360-3.740)
[2021-06-24 02:53] LABS: Potassium 2.9 mmol/L (3.5-5.1)
[2021-06-24] MEDS: ONDANSETRON 4 MG/2 ML VIAL IV PRN (06:50)
[2021-06-24] MEDS ORDERED: ONDANSETRON 4 MG/2 ML VIAL ONE (07:14)
--- NOTE | 2021-06-24 07:57 | EKG ---
Test Date: 2021-06-23 Test Time: 18:22:47 Blending Tank Helper: CHACHO MEASUREMENT RESULTS: Intervals: Rate: 73 [place]: 170 QRSD: 194 QT: 528 QTc: 581 [place]: P: 53 [place]: 170 QRS: -83 T: 82 INTERPRETIVE STATEMENTS: Electronic ventricular pacemaker Compared to ECG 04/07/2021 11:58:54 No significant changes Electronically Signed On 06-24-21 07:56:01 CDT by Matthew Braden
[2021-06-24] MEDS ORDERED: POTASSIUM CL SA 10 MEQ TAB PO ONE (09:49)
[2021-06-24] MEDS ORDERED: NA CHLORIDE 0.9% 500 ML IV ONE (09:53)
[2021-06-24] MEDS ORDERED: Ciprofloxacin 200mg IV 200 MG/100 ML IV.SOLN. IV SCH (10:00)
--- NOTE | 2021-06-24 13:05 | EKG ---
Test Date: 2021-06-24 Test Time: 10:50:09 Student Records Specialist: JAMARI MEASUREMENT RESULTS: Intervals: Rate: 78 [place]: 164 QRSD: 188 QT: 502 QTc: 572 [place]: P: 59 [place]: 164 QRS: -82 T: 84 INTERPRETIVE STATEMENTS: Electronic ventricular pacemaker Compared to ECG 06/23/2021 18:22:47 No significant changes Electronically Signed On 06-24-21 13:04:39 CDT by Matthew Braden
[2021-06-24] MEDS: METRONIDAZOLE 500mg IVPB 500 MG/100 ML BAG IV SCH ×2 (13:37→21:43)
--- NOTE | 2021-06-24 13:44 | CON ---
Date of Consultation: 06/24/2021 Reason For Consultation: Hypotension. History Of Present Illness: Ms. Haywood is a 70-year-old woman, has end-stage renal disease. She is on peritoneal dialysis for 2 years. Has had a history of CABG, pacemaker, TAVR. Her last catheteriz ation in March of this year showed a patent WYATT to the LAD. RCA and circumflex and left main were oka y. Her pacemaker is functioning properly. She also has a history of hypertension, lupus, and depres kelli. Came in with hypotension, shortness of breath, cough, and vomiting. Workup is pending. Her c reatinine was 13, potassium of 2.9, triglycerides 165. Her BNP is 32,517. Her troponin is 0.24. No chest pain reported. Denied PND, orthopnea, pedal edema, palpitations, or syncope. Past Medical History: As stated above. Allergies: NONE. Review of Systems: Negative. Social History: Negative. Family History: Noncontributory. Medications: Include aspirin, clonidine, Lipitor, Coreg, Lasix, lisinopril, and Zoloft. Physical Examination: General: She appears to be in mild respiratory distress. Vital Signs: Blood pressure is 110/70, sinus rhythm, afebrile. HEENT: Negative. Neck: Supple with no bruit. Chest: Clear. Abdomen: Benign. Extremities: Revealed no clubbing, cyanosis, or edema. Diagnostic Data: As stated earlier. Impression And Plan: The patient with cough, vomiting, shortness of breath, hypotension, certainly c ould be related to a viral syndrome, dehydration or likely peritonitis, although her abdominal exam d oes not show it. I do not think we are dealing with an acute coronary syndrome. Her elevated tropon in and BNP are secondary to renal failure. She has known congestive heart failure, but I do not thin k we are dealing with any exacerbation at this point. She needs her potassium corrected. Her main p roblem including hypotension, lupus, depression, history of coronary artery disease status post coron xin artery bypass graft with a patent WYATT in March 2021, normal RCA and circumflex and left main, hist ory of transcatheter aortic valve replacement, history of pacemaker all these problems are stable. N ephrology is involved. I will continue to follow her along. No cardiac workup recommended at this p oint and certainly no coronary catheterization is planned either. MAMTA/HECTOR Voice ID: [id number] Report ID: [id number]
[2021-06-24] MEDS ORDERED: CALCITROL 0.25 MCG CAP PO SCH (15:00)
[2021-06-24] MEDS ORDERED: EPOETIN ALFA-EPBX 10,000 UNIT/ML VIAL SQ ONE (15:00)
[2021-06-24] MEDS: SEVELAMER CARBONATE 800 MG TABLET PO SCH (16:45)
[2021-06-25 05:55] LABS: Albumin 2.7 g/dL (3.4-5.0); Phosphorus 6.4 mg/dL (2.5-4.9)
[2021-06-25 05:56] LABS: Potassium 2.7 mmol/L (3.5-5.1)
[2021-06-25] MEDS ORDERED: POTASSIUM CL SA 10 MEQ TAB PO ONE ×2 (07:30→09:32)
--- NOTE | 2021-06-25 07:45 | CON ---
Date of Consultation: 06/22/2021 Reason For Consultation: Elevated BUN and creatinine, electrolyte imbalance, end-stage renal disease. History Of Present Illness: This is a pleasant 70-year-old female, well known to me from the office with significant past medical history of end-stage renal disease, used to be on hemodialysis, currently on peritoneal dialysis with IDPN 5 exchanges; hypertension; aortic valve replacement; coronary artery disease status post CABG; lupus. The patient came to the hospital with chest tightness, shortness of breath. The patient also started developing some diarrhea, watery. We had adjusted her prescription to use only yellow. The patient visited with her Cardiology. Echocardiogram was negative. Lasix has been increased, but still continued to complain from chest tightness and shortness of breath. The patient started to be anuric upon arrival to the hospital, the patient with marginally low blood pressure with elevation in BUN and creatinine. For that reason, we have been consulted. The patient over the night was started on gentle IV hydration. No change in shortness of breath. Blood pressure stabilized. Past Medical History: Includes; 1. Hypertension. 2. Hyperlipidemia. 3. End-stage renal disease, on peritoneal dialysis. 4. Coronary artery disease status post CABG. 5. Aortic valve replacement. Past Surgical History: Includes; 1. PD catheter placement. 2. CABG. 3. Aortic valve replacement. 4. Breast biopsy. 5. D and C. Family History: Positive for hypertension. Social History: Denied smoking, denied drinking, denied drugs abuse. Allergies: NO KNOWN DRUGS ALLERGY. Home Medications: Include B complex, Renvela, Zoloft, lisinopril 40 b.i.d., Lasix 80 b.i.d., Epogen, clonidine, Sensipar, atorvastatin, aspirin. Review of Systems: Head and Neck: No red eye. No ear pain. GI: Has diarrhea. Has abdominal pain. : No polyuria. No dysuria. No hematuria. Currently anuric. 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 Respiratory: Has chest tightness. Has shortness of breath. Cardiovascular: Has chest tightness. Endocrine: No polydipsia. Skin: No rash. Neuro: Has neuropathy. Musculoskeletal: Generalized fatigue. Physical Examination: General: When I saw the patient; the patient was lying in bed, comfortable, no distress, on room air. Vital Signs: Earlier blood pressure was down to the 80, currently blood pressure 121/90. Chest: Clear to auscultation. Heart: S1, S2. Regular. Abdomen: Soft, nontender. Extremity: No edema. Neuro: Alert, oriented x3. No focal. Had resting tremor. Laboratory Data: CT abdomen and pelvis without contrast, no intraabdominal finding. Chest x-ray, no over volume. WBC 6.9, H and H 9.5/27.4. Sodium 139, potassium 2.9, bicarb 24, BUN 108, creatinine 13, calcium 7.7, magnesium 2.1, phosphorus 7.2. BNP 32,000. Assessment And Plan: 1. End-stage renal disease with mild elevation in the BUN, mostly secondary to intradialytic parenteral nutrition. I am going to go ahead and discontinue intradialytic parenteral nutrition. We will continue the patient on IV hydration of normal saline another 500 at rate of 50 per hour and we will monitor the patient. The patient looked to me on the dry side. We will resume her PD regimen. Keep holding Lasix. 2. Hypertension, currently hypotension. Hold all blood pressure medications and we will monitor the patient. Hold Lasix. 3. Secondary hyperparathyroidism. Continue Sensipar and resume Renvela. 4. Anemia of chronic kidney disease. Resume BERNARD. 5. Gastroenteritis. We will start the patient on Flagyl and ciprofloxacin and we will monitor. 6. Chest pain, questionable coronary artery disease. We will follow up with Cardiology. 7. Hypokalemia. We will supplement. time spend exam the patient face to face placing order , reviewing data , discussed the case with nursing staff, other team care including enoch 75 min ZULAY Voice ID: [id number] Report ID: [id number] MIGUEL
[2021-06-25] MEDS: SEVELAMER CARBONATE 800 MG TABLET PO SCH ×3 (09:10→16:46)
[2021-06-25] MEDS: METRONIDAZOLE 500mg IVPB 500 MG/100 ML BAG IV SCH ×3 (09:11→20:59)
[2021-06-25 09:41] VITALS: BMI 23.7
[2021-06-25] MEDS ORDERED: POTASSIUM CL 40 MEQ in NA CHLORIDE 0.9% 500 ML IV SCH (10:00)
[2021-06-25] MEDS ORDERED: CALCITROL 0.25 MCG CAP PO SCH (11:00)
[2021-06-25] MEDS: CIPROFLOXACIN 400mg IV 400 MG/200 ML BAG IV SCH (12:34)
[2021-06-25] MEDS: ONDANSETRON 4 MG/2 ML VIAL IV PRN (12:34)
[2021-06-25] MEDS ORDERED: LOPERAMIDE HCL 2 MG CAPSULE PO STA (15:21)
[2021-06-25 15:23] LABS: C.diff Antigen/Toxin Ag neg : Tox neg (NEG : NEG)
--- NOTE | 2021-06-25 15:26 | P.PN ---
Subjective Date of Service: 06/24/21 Subjective: No new changes, No C/O voiced, Improving Review of Systems 10-point ROS is otherwise unremarkable Physical Examination - Vital Signs Temperature: 97.8 F Blood Pressure: 109/58 Pulse: 95 Respirations: 16 Pulse Ox (%): 98 - Physical Exam General: Alert, In no apparent distress, Oriented x3 HEENT: Atraumatic, PERRLA, EOMI Neck: Supple, JVD not distended Respiratory: Clear to auscultation bilaterally, Normal air movement Cardiovascular: Regular rate/rhythm, Normal S1 S2 Gastrointestinal: Soft and benign, Non-distended, Tenderness Musculoskeletal: No clubbing, No swelling, No tenderness Neurological: Normal speech, Normal tone, Normal affect Lymphatics: No axilla or inguinal lymphadenopathy - Studies Medications List Reviewed: Yes Assessment & Plan - Problems (Diagnosis) (1) Abdominal pain Current Visit: Yes Status: Acute (2) ESRD on peritoneal dialysis Current Visit: Yes Status: Acute (3) Coronary artery disease Onset Date: 11/02/16 Current Visit: No Status: Chronic Qualifiers: (4) Depression Onset Date: 11/02/16 Current Visit: No Status: Chronic Qualifiers: Depression Type: unspecified Qualified Code(s): F32.9 - Major depressive disorder, single episode, unspecified (5) ESRD (end stage renal disease) Current Visit: No Status: Chronic (6) H/O aortic valve replacement Current Visit: No Status: Chronic (7) Hypertension Onset Date: 11/02/16 Current Visit: No Status: Chronic Qualifiers: Hypertension type: primary hypertension Qualified Code(s): I10 - Essential (primary) hypertension - Plan Plan: 1. CT scan with no significant abnormalities. Will do with stool study if continues to have diarrhea 2. Monitor electrolytes closely 3. peritoneal dialysis per Nephrology 4. Uremia needs to be corrected 5. May need to use some anti-inflammatories if the diarrhea continues 6. Echocardiogram pending 7. Monitor cardiac status closely 8. GI and DVT prophylaxis Discharge Plan: Home Plan to discharge in: Greater than 2 days - Advance Directives Does patient have a Living Will: No Does patient have a Durable POA for Healthcare: No - Code Status/Comfort Care Code Status Assessed: Yes Code Status: Full Code Critical Care: No Time Spent Managing PTS Care (In Minutes): 35
--- NOTE | 2021-06-25 15:27 | PN ---
Date of Progress Note: 06/25/2021 Subjective: The patient was admitted with gastroenteritis and chest tightness. Cardiology evaluated . No unstable angina. The patient was started on hydration, tolerated very well. The patient still has diarrhea. The patient had dialysis with her peritoneal dialysis yesterday. Tolerated well. Physical Examination: Vital Signs: Blood pressure 124/62, pulse of 98, afebrile. Chest: Clear to auscultation. Heart: S1, S2 regular. Abdomen: Soft, nontender. Extremities: No edema. Neuro: Alert. No focality. Laboratory Data: WBC 6.9, H and H 9.5/27.4, platelet of 82. Sodium 140, potassium 2.7, bicarb 21, B UN down to 97, creatinine 12.5, calcium 8, phosphorus 6.4, albumin 2.7, PTH 7.6. Current Medications: The patient on its ciprofloxacin, metronidazole 500 t.i.d., Epogen, Renvela 160 0, Zofran, calcitriol. Assessment And Plan: 1.End-stage renal disease, looked to me still on the normal volume. I am going to keep holding Lasi x for the time being and we will continue to dialyze the patient with 1.5, and we will monitor the pa tient. 2.Hypokalemia. We will supplement. 3.Secondary . Increase calcitriol. Continue Renvela. 4.Coronary artery disease. We will follow up with Cardiology. 5.Colitis. Continue Flagyl and Cipro. We will follow up Clostridium difficile. KALA/HECTOR Voice ID: [id number] Report ID: [id number]
--- NOTE | 2021-06-25 15:27 | P.PN ---
Date of Service: 06/25/21 Subjective Subjective: Patient doing better. Still with some diarrhea. IV steroids and Imodium given; stool studies pending Review of Systems 10-point ROS is otherwise unremarkable Physical Examination - Vital Signs Reviewed - Physical Exam General: Alert, In no apparent distress, Oriented x3 Respiratory: Clear to auscultation bilaterally, Normal air movement Cardiovascular: Regular rate/rhythm, Normal S1 S2 Gastrointestinal: Soft and benign, Non-distended, Tenderness Musculoskeletal: No clubbing, No swelling, No tenderness Neurological: Normal speech, Normal tone, Normal affect Assessment & Plan - Problems (Diagnosis) (1) Abdominal pain Current Visit: Yes Status: Acute (2) ESRD on peritoneal dialysis Current Visit: Yes Status: Acute (3) Coronary artery disease Onset Date: 11/02/16 Current Visit: No Status: Chronic Qualifiers: (4) Depression Onset Date: 11/02/16 Current Visit: No Status: Chronic Qualifiers: Depression Type: unspecified Qualified Code(s): F32.9 - Major depressive disorder, single episode, unspecified (5) ESRD (end stage renal disease) Current Visit: No Status: Chronic (6) H/O aortic valve replacement Current Visit: No Status: Chronic (7) Hypertension Onset Date: 11/02/16 Current Visit: No Status: Chronic Qualifiers: Hypertension type: primary hypertension Qualified Code(s): I10 - Essential (primary) hypertension - Plan Plan: 1. CT scan with no significant abnormalities. Will do with stool study if continues to have diarrhea 2. Monitor electrolytes closely 3. peritoneal dialysis per Nephrology 4. Uremia needs to be corrected 5. May need to use some anti-inflammatories if the diarrhea continues 6. Echocardiogram pending 7. Monitor cardiac status closely 8. GI and DVT prophylaxis Discharge Plan: Home Plan to discharge in: Greater than 2 days - Advance Directives Does patient have a Living Will: No Does patient have a Durable POA for Healthcare: No - Code Status/Comfort Care Code Status Assessed: Yes Code Status: Full Code Critical Care: No Time Spent Managing PTS Care (In Minutes): 35
[2021-06-25] MEDS ORDERED: EPOETIN ALFA EPBX SQ SCH (15:30)
[2021-06-25] MEDS: METHYLPREDNISOLONE 125 MG INJ IV SCH ×2 (16:46→16:51)
[2021-06-25] MEDS: FLUTICASONE 50MCG NASAL SPRAY NAS SCH (20:58)
[2021-06-25] MEDS ORDERED: AZELASTINE NASAL SPRAY 30 ML NAS PRN (21:00)
[2021-06-25] MEDS ORDERED: ATORVASTATIN 20 MG TAB PO SCH (21:00)
[2021-06-26] MEDS ORDERED: LOPERAMIDE HCL 2 MG CAPSULE PO STA (00:24)
[2021-06-26] MEDS: METHYLPREDNISOLONE 125 MG INJ IV SCH ×4 (00:31→17:02)
[2021-06-26 05:31] LABS: Absolute Lymphocytes (CBC) 0.4 K/uL (0.7-4.9); Basophils % 0.1 % (0-1.3); Hematocrit 27.2 % (36.0-45.0); MPV 9.1 fL (7.6-11.3); RBC Red Blood Cell Count 2.86 M/uL (3.86-4.86)
[2021-06-26 05:55] LABS: Albumin 2.9 g/dL (3.4-5.0); Bilirubin Total 0.3 mg/dL (0.2-1.0); Magnesium 1.8 mg/dL (1.8-2.4); Phosphorus 5.1 mg/dL (2.5-4.9); Potassium 3.9 mmol/L (3.5-5.1); Protein, Total 6.7 g/dL (6.4-8.2)
[2021-06-26] MEDS ORDERED: PNEUMOCOCCAL VACCINE 0.5 ML IMVAC ONE (08:00)
[2021-06-26] MEDS ORDERED: SERTRALINE HCL 100 MG TAB PO SCH (09:00)
[2021-06-26] MEDS ORDERED: Febuxostat 40 MG Tablet PO SCH (09:00)
[2021-06-26] MEDS ORDERED: CINACALCET HCL 30 MG TAB PO SCH (09:00)
[2021-06-26] MEDS ORDERED: CALCITROL 0.25 MCG CAP PO SCH (09:00)
[2021-06-26] MEDS ORDERED: HOME MED 1 EA UNK (Febuxostat [Febuxostat] 40 MG Tablet) PO SCH (09:00)
[2021-06-26] MEDS ORDERED: MIDODRINE HCL 5 MG TABLET PO SCH (09:00)
[2021-06-26] MEDS: SEVELAMER CARBONATE 800 MG TABLET PO SCH ×3 (09:04→17:02)
[2021-06-26] MEDS: METRONIDAZOLE 500mg IVPB 500 MG/100 ML BAG IV SCH ×2 (09:04→14:18)
[2021-06-26] MEDS ORDERED: HYDROCORTISONE SUC 100 MG INJ IV ONE (09:14)
[2021-06-26] MEDS: FLUTICASONE 50MCG NASAL SPRAY NAS SCH (09:14)
[2021-06-26 11:14] VITALS: O2SAT 96
[2021-06-26 11:55] VITALS: TEMP 96.8
[2021-06-26] MEDS: CIPROFLOXACIN 400mg IV 400 MG/200 ML BAG IV SCH (13:01)
--- NOTE | 2021-06-26 13:39 | RAD REPORT ---
EXAM DESCRIPTION: RAD - Chest Single View - 06/26/2021 1:29 pm CLINICAL HISTORY: COPD COMPARISON: Portable June 23 TECHNIQUE: AP portable chest image was obtained 06/26/2021 1:29 pm . FINDINGS: Lung volumes are reduced from comparison. No consolidation or mass. Interstitial pattern i s not clearly different. Pacemaker/defibrillator remains in place with numerous sternotomy wires again noted. Heart size is sl ightly enlarged due to low lung volumes. Significant interval change is doubtful. No vascular engorge ment. No measurable pleural effusion and no pneumothorax. No acute bony abnormality seen. No acute aortic findings suspected. IMPRESSION: No acute cardiopulmonary process. Above detailed findings are not clearly different from comparison.
[2021-06-26 16:29] VITALS: BP 142/84
--- NOTE | 2021-06-26 17:27 | PN ---
Date of Progress Note: 06/26/2021 Subjective: The patient was admitted with colitis, diarrhea, severe elevation in BUN, and chest tigh tness. After hydration and stopping the IDPN, BUN started trending down. The patient was started on antibiotic and started on steroid. Her diarrhea has been subsided significantly. Physical Examination: Vital Signs: Blood pressure 144/78, pulse of 86. Chest: Clear to auscultation. Heart: S1, S2. Regular. Abdomen: Soft, nontender. Extremity: No edema. Neuro: Alert. No focality. Laboratory Data: H and H 9.5/27.2. Sodium 137, potassium 3.9, bicarb 20, BUN 83 trending down, crea tinine 11.6, calcium 8.5, phosphorus 5.1 and continued to trend down, magnesium 1.8. BNP has been tr ended up to 58,000. Albumin 2.9. PTH 706. Current Medications: Include ciprofloxacin, metronidazole, midodrine 5 mg daily, atorvastatin, Zolof t, Renvela 1600 q.a.c., , Sensipar 30. Assessment And Plan: 1.End-stage renal disease. We will continue the patient on dialysis per her regimen and we will mon itor. We will keep holding IDPN given secondary elevation in the BUN. 2.Hypertension, controlled, optimal. Continue current treatment. 3.Secondary hyperparathyroidism. Continue Renvela and calcitriol with Sensipar. 4.Colitis. Continue current antibiotic. Continue steroid. We will follow up with primary. The patient is going to need GI evaluation as outpatient. ZULAY Voice ID: [id number] Report ID: [id number]
--- NOTE | 2021-06-30 10:04 | P.DS ---
Discharge Date: 06/26/21 Disposition: ROUTINE DISCHARGE Discharge Condition: GOOD Reason for Admission: hypotension Consultations: Nephrology Cardiology - Problems (1) Abdominal pain Status: Acute (2) ESRD on peritoneal dialysis Status: Acute (3) Coronary artery disease Onset Date: 11/02/16 Status: Chronic Qualifiers: (4) Depression Onset Date: 11/02/16 Status: Chronic Qualifiers: Depression Type: unspecified Qualified Code(s): F32.9 - Major depressive disorder, single episode, unspecified (5) ESRD (end stage renal disease) Status: Chronic (6) H/O aortic valve replacement Status: Chronic (7) Hypertension Onset Date: 11/02/16 Status: Chronic Qualifiers: Hypertension type: primary hypertension Qualified Code(s): I10 - Essential (primary) hypertension Brief History of Present Illness: Ms. Haywood is a 70 yo F with HTN, ESRD on PD, AoVR w/ defibrillator and pacemaker who presents with hypotension. For the past 2.5 weeks she has had RUSH, back pain and neck pain. She went to the [facility], and her Lasix was increased. Symptoms continued, and her Lasix was increased again. Symptoms worse with exertion, improve at rest. She says urination has been decreased for the past 2 days. She also reports anorexia, nausea, diarrhea, and diffuse abdominal pain for the past day. K 2.8, BUN 108, Cr 13.3, GFR 3, trop 0.22, BNP [address]. CXR wnl. CT abdomen wnl. Hospital Course: Patient Was dialyzed by nephrology-peritoneal dialysis was done. Patient was started on some steroids and diarrhea resolved. Could possibly have inflammatory bowel disease. May need further GI testing. Patient working on transplant as well. Pt is doing well with no new complaints. Patient clinically doing much better. At this time patient is stable for discharge with outpatient followup. Vital Signs/Physical Exam: Temp Pulse Resp BP Pulse Ox 96.8 F 106 H 16 142/84 H 98 06/26/21 16:00 06/26/21 16:00 06/26/21 16:00 06/26/21 16:00 06/26/21 16:00 General: Alert, In no apparent distress, Oriented x3 Laboratory Data at Discharge: WBC 2.60 K/uL (4.3-10.9) L D 06/26/21 04:43 Hgb 9.5 g/dL (12.0-15.0) L 06/26/21 04:43 Hct 27.2 % (36.0-45.0) L 06/26/21 04:43 Plt Count 73 K/uL (152-406) L 06/26/21 04:43 PT 13.9 SECONDS (9.5-12.5) H 06/23/21 17:54 INR 1.21 06/23/21 17:54 Sodium 137 mmol/L (136-145) 06/26/21 04:43 Sodium Cancelled 06/26/21 04:43 Potassium 3.9 mmol/L (3.5-5.1) 06/26/21 04:43 Potassium Cancelled 06/26/21 04:43 BUN 83 mg/dL (7-18) H 06/26/21 04:43 BUN Cancelled 06/26/21 04:43 Creatinine 11.60 mg/dL (0.55-1.3) H* 06/26/21 04:43 Creatinine Cancelled 06/26/21 04:43 Glucose 203 mg/dL (74-106) H 06/26/21 04:43 Glucose Cancelled 06/26/21 04:43 Phosphorus 5.1 mg/dL (2.5-4.9) H 06/26/21 04:43 Phosphorus Cancelled 06/26/21 04:43 Magnesium 1.8 mg/dL (1.8-2.4) 06/26/21 04:43 Total Bilirubin 0.3 mg/dL (0.2-1.0) 06/26/21 04:43 AST 26 U/L (15-37) 06/26/21 04:43 ALT 21 U/L (12-78) 06/26/21 04:43 Alkaline Phosphatase 185 U/L (45-117) H 06/26/21 04:43 Troponin I 0.20 ng/mL (0.0-0.045) H 06/24/21 09:56 Triglycerides 165 mg/dL (<150) H 06/24/21 02:03 Cholesterol 118 mg/dL (<200) 06/24/21 02:03 HDL Cholesterol 26 mg/dL (40-60) L 06/24/21 02:03 Cholesterol/HDL Ratio 4.54 06/24/21 02:03 Home Medications: Aspirin [Aspirin EC 81 MG] 81 mg PO DAILY 04/07/21 Atorvastatin Calcium [Lipitor*] 40 mg PO BEDTIME 04/07/21 Azelastine HCl 205.5 mcg NS BID PRN 04/07/21 Carvedilol [Coreg] 25 mg PO BID 04/07/21 Cinacalcet HCl 30 mg PO DAILY 04/07/21 Epoetin Frederic-Epbx [Retacrit] 13,000 unit SQ SEECOM 04/07/21 Febuxostat 40 mg PO DAILY 04/07/21 Fluticasone [Flonase 50MCG Nasal [place]*] 2 sprays NS BID PRN 04/07/21 Heparin Sodium,Porcine/Pf [Heparin 500 Unit/5 ml (100/ml)] 500 unit IV SEECOM 04/07/21 Sertraline [Zoloft*] 100 mg PO DAILY 04/07/21 Sevelamer Carbonate [Renvela*] 3,200 mg PO TIDWM 04/07/21 Vit B Comp C/Folic Acid/Vit D3 [Dialyvite 800 Plus D Wafer] 1 each PO DAILY 0 04/07/21 Calcitrol [Rocaltrol*] 1 cap PO DAILY 06/24/21 Ergocalciferol (Vitamin D2) [Vitamin D2] 1 cap PO SEECOM 06/24/21 Midodrine HCl [Proamatine*] 1 tab PO DAILY 06/24/21 metroNIDAZOLE [Flagyl] 250 mg PO Q8H #20 tablet 06/26/21 predniSONE [Prednisone*] 20 mg PO BID #14 tab 06/26/21 New Medications: metroNIDAZOLE [Flagyl] 250 mg PO Q8H #20 tablet predniSONE [Prednisone*] 20 mg PO BID #14 tab Diet: Renal Activity: Fall precautions Followup: Angie Cerda MD [ACTIVE - CAN ADMIT] - Matthew Braden MD [ACTIVE - CAN ADMIT] - Nghia Jones MD [Primary Care Provider] - Time spent managing pt's care (in minutes): 35
[2021-07-05] MEDS ORDERED: DRISDOL (VITAMIN D=ERGOCALCIFEROL) 50000 UNIT CAP PO SCH (09:00)
== END 2021-06-26 18:47 | disposition home or self-care (01) | DRG 391 ==
LOC: ER 14:19 → ERHOLD 19:50 → 2ND 06-24 08:57
PROVIDERS: ADMIT Hospitalist; ATTEND Hospitalist
DX: K52.9 Noninfective gastroenteritis and colitis, unspecified (principal); N18.6 End stage renal disease; I12.0 Hypertensive chronic kidney disease with stage 5 chronic kidney disease or end stage renal disease; N25.81 Secondary hyperparathyroidism of renal origin; I95.9 Hypotension, unspecified; I25.10 Atherosclerotic heart disease of native coronary artery without angina pectoris; E87.6 Hypokalemia; F32.9 Major depressive disorder, single episode, unspecified; M32.9 Systemic lupus erythematosus, unspecified; Z95.2 Presence of prosthetic heart valve; Z95.810 Presence of automatic (implantable) cardiac defibrillator; Z95.1 Presence of aortocoronary bypass graft; Z23 Encounter for immunization; Z20.822 Contact with and (suspected) exposure to COVID-19
CPT/HCPCS: 36415; 71045; 74176; 80048; 80053; 80061; 80069; 80076; 82274; 83735; 83880; 83970; 84100; 84145; 84439; 84443; 84484; 85025; 85610; 87324; 87449; 87804; 89055; 90471; 90732; 93005; 94760; 96365; 96366; 96375; 99285; J0744; J2405; J2930; J3480; J7030; J7040; J7050; Q5106; U0003

== ENCOUNTER 2021-07-19 11:14 | Observation (INO) | payer OTHER ==
--- OUTSIDE RECORDS SUMMARY | 2021-07-19 11:17 | XMS REPORT | Continuity of Care Document ---
:1950 Author Organization [facility] t Address [address] [place] [address] Care Team Providers Name Role Phone Jones, E Primary Care Physician Cruz COYNE, Hugo Attending Clinician Mariana Newell Attending Clinician Unavailable Kalpana COYNE, K N Attending Clinician Doctor Unassigned, Name Attending Clinician Unavailable Mateo COYNE, Torres Attending Clinician Julio ARMENDARIZ, M Attending Clinician Unavailable Paola COYNE, H. Attending Clinician ANATOLY ANDERSEN Attending Clinician Unavailable Payers Payer Name Policy Policy Number Effective Expiration Source Type Date Date MEDICAREMEDICARE PART [id number] 2016 Un iversity of A & 00:00:00 [facility] [id number] [facility] -[phone] [id number] JESIKA ROMERO [phone] [id number] Uni versity of -PresentTr 00:00:00 Gt as Medical [facility] Branch MEDICAREMEDICARE PART [id number] Or bernice Arias AND 00:00:00 Hospital [id number] 2016 -[facility] [place]Med[place]are [id number] Met marti -PresentMi 00:00:00 Hos pital litary Problems Condition Condition Condition Status Onset Resolution Last Treating Co mments Source Name Details Category Date Date Treatment Clinician Date Peripheral Peripheral Disease Active U nivers vascular vascular 712 ity of disease disease 00:00: [place] 00 Medical Branch End-stage End-stage Disease Active Overview: Methodi renal renal [address] disease disease 00:00: g of this Hospi ta 00 note l might be different from the original. Added automatic ally from request for surgery [id number] S/P TAVR S/P TAVR Disease Active Overview: Me thodi (transcath (transcath 6-[address] eter eter 00:00: g of this Hospita aortic aortic 00 note l valve valve might be replacemen replacemen different t) t) from the original. Valve-in- Valve with 23 mm Medtronic Evolut Pro valve s/p VF s/p VF Disease Active Methodi (ventricul (ventricul 6 st ar ar 00:00: Hospita fibrillati fibrillati [...] PD [email or web address] will be available as needed. We will follow-up PRN. Postoperat Postoperat Disease Active M ethodi amrik anemia amrik anemia 6-04 st due to due to 00:00: Hospita acute acute 00 l blood loss blood loss Thrombocyt Thrombocyt Disease Active M ethodi openia due openia due 04-18 st to blood to blood 00:00: Hospit a loss loss 00 l ESRD (end ESRD (end Disease Active Met hodi stage stage 5-03 st renal renal 00:00: Hospita disease) disease) 00 l on on dialysis dialysis Pre-transp Pre-transp Disease Active C [facility] lant lant 11-30 [facility] - evaluation evaluation 00:00: Or dical for for 00 Center chronic chronic kidney kidney disease disease Stage 4 Stage [address] [facility] kidney kidney 00:00: Medical disease disease 00 Center Proteinuri Proteinuri Disease Active 2017-11 U tristiners a, a, 2-20 ity of unspecifie [place] d type 00 Medical Branch Lupus Lupus Disease Active 2017-11 Methodi 11-23 [address] 00:00: Hospita 00 l Anemia due Anemia due Disease Active 2017-11 U nivers to stage 5 to stage 5 0-02 it y of chronic chronic 00:00: [place] kidney kidney 00 Medical disease, disease, Branch not on not on chronic chronic dialysis dialysis Secondary Secondary Disease Active 2017-11 Uni vers hyperparat hyperparat 0-02 it y of hyroidism hyroidism 00:[facility]: [facility] Vitamin D Vitamin D Disease Active 2017-11 Uni vers deficiency deficiency 0-02 it y of 00:00: [place] [address] Medical Branch History of History of Disease Active U tristiners lupus lupus 7- [place] of nephritis neph[place] CKD stage CKD stage Disease Active Uni vers G5/A3, GFR G5/A3, GFR 7-21 it y of <15 and <15 and 00:00: [place] albumin albumin 00 [facility] creatinine creatinine Br anch ratio >300 ratio >300 mg/g mg/g Elevated Elevated Disease Active Unive rs serum serum 7- ity of creatinine creatinine [place] Thrombocyt Thrombocyt Disease Active U warren openia openia 12-10 ity of 00:00: [place] [address] Medical Branch RADHA RADHA Disease Active Univers positive positive 1-26 ity of 00:00: [place] 00 [facility] SS-A SS-A Disease Active Univers antibody antibody 1-26 ity of positive positive 00:00: [place] 00 [facility] Essential Essential Disease Active 2012-11 Uni vers hypertensi hypertensi 2-20 it y of on, benign on, benign 00:[place] [facility] Iron Iron Disease Active Univers deficiency deficiency 8-30 it y of anemia anemia 00:00: [place] [facility] Branch Red eye Red eye Disease Active Univers 8-30 ity of 00:00: [place] [facility] Branch Skin rash Skin rash Disease Active Uni vers 6-07 ity of 00:00: [place] [facility] Branch Hyperurice Hyperurice Disease Active U nivers otto otto 5-14 ity of 00:00: [place] [facility] Systemic Systemic Disease Active Unive rs lupus lupus 5-08 ity of erythemato erythemato 00[place]00[place] ezekiel[place] ezekiel, 00 Medical unspecifie unspecifie Br anch d SLE d SLE type, type, unspecifie unspecifie d organ d organ involvemen involvemen t status t status Loss of Loss of Disease Active Univers weight weight 5-08 ity of 00:00: [place] 00 [facility] Other Other Disease Active Univers malaise malaise 5-08 ity of and and 00:00: [place] fatigue fatigue [facility] Other Other Disease Active Univers abnormal abnormal 5-08 ity of blood blood 00:00: [place] chemistry chemistry [facility] Allergies, Adverse Reactions, Alerts This patient has no known allergies or adverse reactions. Family History Family Member Diagnosis Comments Start Date Stop Date Source Natural father Arthritis [facility] Natural father Heart disease [facility] Natural father Heart disease [facility] [place] [facility] Natural mother Neuromuscular disorder [facility] Natural mother ALS [facility] Natural sister Hypertension [facility] Social History Social Habit Start Date Stop Date Quantity Comments Source History [facility] Alcohol Std Drinks History SDOH [facility] Alcohol Binge Exposure to Not sure [facility]2 [place] [facility] (event) Branch Tobacco use and 2020-10-22 2020-10-22 Never used [facility] exposure 00:00:00 00:00:00 Alcohol intake 2020-10-22 2020-10-22 Current [facility] 00:00:00 00:00:00 non-drinker of alcohol (finding) History SDOH 2020-10-21 2020-10-21 1 [facility] spital Alcohol Frequency 00:00:00 00:00:00 Alcohol Comment 2018-11-30 2018-11-[address] [facility] - 00[facility]00:00 Medical Center Sex [birth year] [facility] 00:00:00 00:00:00 Smoking Status Start Date Stop Date Source [facility] sm[facility] Medications Ordered Filled Start Stop Current Ordering Indication Dosage Frequency Signature Comments Components Source Medication Medication Date Date Medication? Clinician (SIG) Name Name Cholecalcif Yes 1000U Take 1,000 Univers naresh, 8-18 Units by ity of Vitamin D3, 16:03: [place] 25 mcg 17 Medical (1,000 Branch unit) capsule metoclopram Yes 5mg Take 5 mg U nivers yaw HCl 5 8-18 by mouth 3 ity of mg tablet 16:01: (three) [place] 34 times Medical daily with Branch meals. atorvastati Yes 20mg Take 20 mg Univers n 20 mg 4-21 by mouth ity of tablet 21:25: at [place] 20 bedtime. Medical Branch fluticasone Yes 1{spray Use 1 Un delphine 50 4-21 } [place] in ity of mcg/actuati 21:25: each [place] on nasal 20 nostril 2 Medica l spray (two) Branch times daily. EPOETIN Yes [id number] Inject Univer s ZAYDA 4-21 13,000 ity of INJECTION 21:25: Units [place] 20 directed Medical weekly. Branch carvediloL Yes 25mg Take 25 mg U nivers 25 mg 4-21 by mouth 2 ity of tablet 21:25: (two) [place] 20 times Medical daily with Branch meals. sevelamer Yes 3200mg Take 3,200 Univers 800 mg 4-21 mg by ity of tablet 18:39: mouth 3 [place] 39 (three) Medical times Branch daily with meals. lisinopriL Yes 40mg Take 40 mg U nivers 40 mg 4-21 by mouth 2 ity of tablet 18:39: (two) [place] 39 times Medical daily. Branch SERTraline Yes 100mg Take 100 Un delphine 50 mg 4-21 mg by ity of tablet 18:36: mouth [place] 50 daily. Medical Branch sertraline 2019-11 Yes 50mg QD Take 50 mg M ethodi (ZOLOFT) 50 2-[address] MG tablet 21:12: daily. [address] 59 1/2 tab l daily atorvastati 2019-11 Yes 20mg QD Take 20 mg Methodi n (LIPITOR) 2-[address] 20 mg 21:12: daily. / Hospit a tablet 59 tab l febuxostat 2019-11 Yes 40mg QD Take 40 mg M ethodi (ULORIC) 40 2-[address] mg tablet 21:12: daily. Hospit a 59 l heparin 2019-11 Yes Inject as Metho di sodium,porc 2-08 [...] (DIALYVITE 59 l 800 PLUS D ORAL) sertraline 2019-11 Yes 50mg QD Take 50 mg M ethodi (ZOLOFT) 50 2-[address] MG tablet 21:12: daily. [address] 59 1/2 tab l daily atorvastati 2019-11 Yes 20mg QD Take 20 mg Methodi n (LIPITOR) 2-[address] 20 mg 21:12: daily. /2 Hospit a tablet 59 tab l febuxostat 2019-11 Yes 40mg QD Take 40 mg M ethodi (ULORIC) 40 2-[address] mg tablet 21:12: daily. Hospit a 59 l heparin 2019-11 Yes Inject as Metho di sodium,porc 2-[address] ine 21:12: 5ML SQ Hospita (HEPARIN, 59 INJECTION l PORCINE, ONCE A INJ) WEEK. MTN clonIDINE 2019- Yes .1mg Q.5D Take 0.1 Meth laila [...] daily. Hospita enteric 58 l coated tablet aspirin 2019-11 Yes 81mg QD Take 81 mg Meth laila (ECOTRIN) 2-[address] 81 MG 21:12: daily. Hospita enteric 58 l coated tablet lisinopriL 2020-0 Yes 20mg Q.5D Take 20 mg M ethodi (PRINIVIL) 2-[address] 40 mg 00:00: (two) Hospita tablet 00 times a l day. lisinopriL 2020-0 Yes 20mg Q.5D Take 20 mg M ethodi (PRINIVIL) 2-[address] 40 mg 00:00: (two) Hospita tablet 00 times a l day. carvediloL 2020-0 Yes 12.5mg Q.5D Take 12.5 Methodi (COREG) 2-[address] 12.5 MG 00:00: mouth 2 Hospita tablet 00 (two) l times a day. carvediloL 2020-0 Yes 12.5mg Q.5D Take 12.5 Methodi (COREG) 2-[address] 12.5 MG 00:00: mouth 2 Hospita tablet 00 (two) l times a day. potassium 2020-0 2020- No 20meq QD Take 20 Met hodi chloride 1-30 12-[address] (K-DUR) 20 00:00: 00:00 mouth Hospi ta MEQ CR 00 :00 daily. l tablet potassium 2020-0 2020- No 20meq QD Take 20 Met hodi chloride 1-30 12-[address] (K-DUR) 20 00:00: 00:00 mouth Hospi ta MEQ CR 00 :00 daily. l tablet pantoprazol 2020-0 2020- No 40mg Q2D Take 40 mg Methodi e 12-[address] (PROTONIX) 00:00: 00:00 every Hospi ta 40 MG EC 00 :00 other day. l tablet pantoprazol 2020- No 40mg Q2D Take 40 mg Methodi e 12-[address] (PROTONIX) 00:00: 00:00 every Hospi ta 40 MG EC 00 :00 other day. l tablet aspirin 81 2019- Yes 81mg Take 81 mg U nivers mg EC 11-16 by mouth ity of tablet 17:15: daily. [address] Branch multivitami 2019-0 Yes Take by Un delphine n,therapeut 11-16 mouth. ity of ic (THERA 17:15: [facility] Medical IN ORAL) Branch pantoprazol Yes 40mg Take 40 mg Univers e 20 mg EC 11-16 by mouth ity o f tablet 17:15: daily. [address] Branch metoclopram 2018-11 Yes 1{tbl} Q.[id number] Take 1 Methodi yaw 2-[id number] (REGLAN) 5 00:00: 3D mouth [address] MG tablet 00 (three) l times a day. metoclopram 2018-11 Yes 1{tbl} Q.[id number] Take 1 Methodi yaw 2-[id number] (REGLAN) 5 00:00: 3D mouth [address] MG tablet 00 (three) l times a day. sevelamer Yes 800mg Q.[id number] 800 mg 3 Methodi (RENVELA) 9-18 [id number] (three) s t 800 mg 00:00: 3D times a Hospita tablet 00 day with l meals. sevelamer 2018-0 Yes 800mg Q.[id number] 800 mg 3 Methodi (RENVELA) 9-18 [id number] (three) s t 800 mg 00:00: 3D times a Hospita tablet 00 day with l meals. epoetin 2020- No [id number] Q.[id number] Inject Methodi zayda-epbx 6-12 12- [id number] 13,000 s t 10,000 00:00: 00:00 3W Units Hospita unit/mL 00 :00 under the l solution skin 3 10,000 (three) Units, times a epoetin week. zayda-epbx 3,000 unit/mL solution 3,000 Units injection epoetin 2020- No [id number] Q.[id number] Inject Methodi zayda-epbx 6-12 12-08 [id number] 13,000 s t 10,000 00:00: 00:00 3W Units Hospita unit/mL 00 :00 under the l solution skin 3 10,000 (three) Units, times a epoetin week. zayda-epbx 3,000 unit/mL solution 3,000 Units injection furosemide Yes 40mg Q2D Take 40 mg M ethodi (LASIX) 40 5-[address] mg tablet 00:00: every Hospita 00 other day. l furosemide Yes 40mg Q2D Take 40 mg M ethodi (LASIX) 40 5-[address] mg tablet 00:00: every Hospita 00 other day. l furosemide Yes [id number] 40mg Take 1 Univers 40 mg 3-27 tablet by ity of tablet 00:00: mouth [place] 00 every Medical morning Branch and evening. febuxostat Yes [id number] 40mg Take 1 Un delphine (ULORIC) 40 3-12 tablet by ity of mg tablet 00:00: mouth [place] 00 daily. Medical Branch metoprolol Yes 50mg Q.5D Take [address] (TOPROL-XL) 1-16 by mouth 2 [place] - 50 MG 24 hr 11:03: (two) Medic al tablet 15 times Center daily. atorvastati Yes 20mg QD Take [address] [facility] (LIPITOR) 1-16 by mouth Luke s - 40 MG 11:03: daily . Medical tablet 15 Center cholecalcif 0 Yes 1000U QD Take 1,[address] naresh, 1-16 Units by [facility] - vitamin D3, 11:03: mouth Medic al 1,000 unit 15 daily. Center capsule doxazosin 0 Yes 2mg Q.5D Take [address] (CARDURA) 2 1-16 by mouth 2 [place] - MG tablet 11:03: (two) Medical 15 times Center daily. sertraline Yes 25mg QD Take [address] HCl 1-16 by mouth [facility] - (SERTRALINE 11:03: daily . Med ical ORAL) 15 Center hydroxychlo 0 Yes QD Take by [facility] roquine 1-16 mouth [facility] - (PLAQUENIL) 11:03: daily. Medi jaxon 200 mg 15 Center tablet cycloSPORIN Yes 1[drp] Q.5D Place [address] E 1-16 drop into [facility] - (RESTASIS) 11:03: both eyes Me dical 0.05 % 15 2 (two) Center ophthalmic times emulsion daily. dilTIAZem Yes 180mg QD Take [address] (CARDIZEM 1-16 mg by [facility] - CD) 180 MG 11:03: mouth Medica l 24 hr 15 daily. [place] capsule calcitriol Yes .25ug QD Take 0.[address] (ROCALTROL) 1-16 mcg by [facility] - 0.25 MCG 11:03: mouth Medical capsule 15 daily. [place] aspirin 81 Yes 81mg QD Take [address] MG EC 1-16 by mouth [facility] - tablet 11:03: daily. [facility] 15 [place] fluticasone Yes 1{puff} Q.5D Inhale [address] (FLOVENT 1-16 puff by [facility] - HFA) 110 11:03: mouth via Medi jaxon mcg/actuati [address] on inhaler (two) times daily. sodium Yes QD [address] bicarbonate 1-16 teaspoonfu [place] - , bulk, 11:03: l by Medical Powd 15 Miscellane Center ous route daily. Immunizations Ordered Filled Immunization Date Status Comments Sourc e Immunization Name Name HEP B, Adult Dosage 2019-01-24 Completed Unive rsity of 00:00:00 [facility] HEP B, Adult Dosage 2018-12-27 Completed Unive rsity of 00:00:00 [facility] Vital Signs Vital Name Observation Time Observation Value Comments Source Systolic blood 2020-10-21 20:25:00 152 mm[Hg] Method ist Hospital pressure Diastolic blood 2020-10-21 20:25:00 77 mm[Hg] [facility] Hospital pressure Heart rate 2020-10-21 20:25:00 60 /min [facility] Body height 2020-10-21 20:25:00 167.6 cm [facility] Body weight 2020-10-21 20:25:00 68.04 kg [facility] BMI 2020-10-21 20:25:00 24.21 kg/m2 [facility] Procedures Procedure Date / Time Performed Performing Clinician Sourc e ECG 12-LEAD 2020-10-22 21:59:06 [facility] TTE COMPLETE, WO 2020-10-22 21:00:00 [facility] CONTRAST, W DOPPLER ([id number]) Plan of Care Planned Activity Planned Date Details Comments Source Future Scheduled 2020-09-[address] [facility] - Test 00:00:00 [facility] breast (procedure) [code = 094365473] Future Scheduled 2020-07-16 INFLUENZA VACCINE (#1) [facility] - Test 00:00:00 [code = INFLUENZA Medical Ce nter VACCINE (#1)] Future Scheduled 2019-11-[address] [facility] [facility] - Test 00:00:00 [facility] colon (procedure) [code = 312519597] Future Scheduled 2017-10-[address] [facility] [facility] - Test 00:00:00 WELLNESS (YEAR 2 or Medical Center FIRST YEAR if no IPPE) [code = MEDICARE ANNUAL WELLNESS (YEAR 2 or FIRST YEAR if no IPPE)] Future Scheduled 2016 PNEUMOCOCCAL 65+ Y[facility] - Test 00:00:00 (1 of 1 - Medical Center [id number] PCV13) [code = PNEUMOCOCCAL 65+ YRS (1 of 1 - [id number] PCV13)] Future Scheduled COVID-19 VACCINE (1) [facility] Test [code = COVID-19 VACCINE (1)] Future Scheduled BRE[facility] Test SCREENING [code = BREAST CANCER SCREENING] Future Scheduled COLONOSCOPY SCREENING [facility] Test [code = COLONOSCOPY SCREENING] Future Scheduled SHINGLES VACCINES (#1) [facility] Test [code = SHINGLES VACCINES (#1)] Future Scheduled INFLUENZA VACCINE Method ist Hospital Test [code = INFLUENZA VACCINE] Future Scheduled COVID-19 VACCINE (1) [facility] Test [code = COVID-19 VACCINE (1)] Future Scheduled BREAST [facility] Test SCREENING [code = BREAST CANCER [...] Date/Time Type Type Clinicians Facility Department ID 2021-07-11 2021-07-11 Telephone [facility] 1.2.840.114 [id number] Univers 00:00:00 00:00:00 Parra A MULTISPEC 350.1.13.10 ity of IALTY 4.2.7.2.686 [facility] [id number] [facility] [place] [address] Branch DIABETES CLINIC 2021-06-02 2021-06-02 Orders [facility] 1.2.840.114 [id number] 00:00:00 00:00:00 Only Parra A MULTISPEC 350.1.13.10 IALTY 4.2.7.2.686 [place] [id number] [place] [address] [facility] 2021-05-29 2021-05-29 [facility] 1.2.840.114 [id number] 00:00:00 00:00:00 Parra A MULTISPEC 350.1.13.10 IALTY 4.2.7.2.686 [place] [id number] [place] [address] [facility] 2021-05-28 2021-05-28 [facility] 1.2.840.114 [id number] 00:00:00 00:00:00 Parra A MULTISPEC 350.1.13.10 IALTY 4.2.7.2.686 [place] [id number] [place] [address] [facility] 2021-05-26 2021-05-26 Committee [facility] 1.2.840.114 [id number] 00:00:00 00:00:00 Review Parra A MULTISPEC 350.1.13.10 IALTY 4.2.7.2.686 [place] [id number] AND JOE 312 [facility] 2021-05-26 2021-05-26 [facility] 1.2.840.114 [id number] 00:00:00 00:00:00 Management Kat Peña MULTISPEC 350.1.13.10 IALTY 4.2.7.2.686 [place] [id number] AND DIAZ 189 [facility]ES [facility] 2021-05-14 2021-05-14 [facility] 1.2.840.114 [id number] 09:18:12 23:59:00 Encounter Ynes goodwin 350.1.13.10 [place] 4.2.7.2.686 [place] [id number] 2021-04-21 2021-04-21 Orders Doctor NESS 1.2.840.114 [id number] 00:00:00 00:00:00 Only UnassignedJACQUIE 350.1.13.10 [place] [facility] 4.2.7.2.686 [id number] 2021-03-05 2021-03-05 Office Mateo [facility] 1.2.840.114 [id number] 12:28:23 15:45:06 Visit Sami Macdonald ANG 350.1.13.10 [facility] 4.2.7.2.686 [place] [id number] AND DIAZ 312 [facility] 2021-01-14 2021-01-14 Orders Doctor NESS 1.2.840.114 [id number] 00:00:00 00:00:00 Only UnassignedJACQUIE 350.1.13.[address] [place] [address]686 [id number] 009 2020-12-19 2020-12-19 Telephone Thomas Kim2.840.1 [id number] Methodi 00:00:00 00:00:[address] Naim[address] 3.430.2.7 Hospit a .3.790481 l .8 2020-12-19 2020-12-19 Telephone Thomas Kim2.840.1 [id number] [id number] Methodi 00:00:00 00:00:00 Naim[address] Moyer [address] 3.430.2.7 Hospit a .3.679813 l .8 2020-10-22 2020-10-22 Multidisci [place], 1.2.840.1 [id number] Methodi 14:52:35 16:10:45 plinary Joe H. 00010.1.1 508 s t Visit 3.430.2.7 Hospit a .3.995469 l .8 2020-10-22 2020-10-22 Multidisci [place], 1.2.840.1 [id number] Methodi 14:52:35 16:10:45 plinary Oje H. 59583.1.1 508 s t Visit 3.430.2.7 Hospit a .3.080176 l .8 2020-10-22 2020-10-22 Travel 1.2.840.1 1.2.094.127 [id number] Methodi 00:00:00 00:00:[address] 3.430.2.7 0.2.7.3.698 Ho spita .3.686708 084.8 l .8 2020-10-22 2020-10-22 Travel 1.2.840.1 1.2.868.685 1208 [id number] Methodi 00:00:00 00:00:[address] 3.430.2.7 0.2.7.3.698 Ho spita .3.897599 084.8 l .8 2020-10-21 2020-10-21 Travel 1.2.840.1 1.2.178.800 5940 [id number] Methodi 00:00:00 00:00:[address] 3.430.2.7 0.2.7.3.698 Ho spita .3.895471 084.8 l .8 2020-10-21 2020-10-21 Travel 1.2.840.1 1.2.944.950 6023 [id number] Methodi 00:00:00 00:00:[address] 3.430.2.7 0.2.7.3.698 edy .3.494949 084.8 l .8 Results Test Description Test Time Test Comments Results Result Comments Source ECG 12 lead 2020-10-23 15:07:40 Test Item Value Reference Range Interpretation Comme nts Ventricular rate (test code = 253) Atrial rate (test code = 255) MA interval (test code = 266) QRSD interval (test code = 260) QT interval (test code = 264) QTC interval (test code = 265) QRS axis 1 (test code = 268) T wave axis (test code = 270) EKG impression (test code = 273) AV sequential or dual chamber elec tronic pacemaker-In automated comparison with ECG of 23-APR-2020 14:14,-No significant change was found- [facility] 12 [id number] 15:07:40 Test Item Value Reference Range Interpretation Comments Ventricular rate (test code = 253) Atrial rate (test code = 255) MA interval (test code = 266) QRSD interval (test code = 260) QT interval (test code = 264) QTC interval (test code = 265) QRS axis 1 (test code = 268) T wave axis (test code = 270) EKG impression (test AV sequential or dual code = 273) chamber electronic pacemaker-In automated comparison with ECG of 23-APR-2020 14:14,-No significant change was found- [facility] [id number] 16:29:00 Test Item Value Reference Range Interpretation Comments CULTURE (BEAKER) (test >100,000 col/mL skin code = 1095) stanley CYTOMEGALOVIRUS ANTIBODY, [id number] 12:23:00 Test Item Value Reference Range Interpretation Comments CYTOMEGALOVIRUS IGM ANTIBODY Negative Negative, Equivocal (BEAKER) (test code = 3437) CMV IgM Result Interpretation: </= 0.8 Al Negative 0.9-1.0 Al Equivocal >/= 1.1 Al PositiveCYTOMEGALOVIRUS ANTIBODY, [id number] 12:18:00 Test Item Value Reference Range Interpretation Comments CYTOMEGALOVIRUS, IGG (BEAKER) Positive Negative, Equivocal A (test code = 3429) CMV IgG Result Interpretation: </= 0.8 Al Negative 0.9-1.0 Al Equivocal >/=1.1 Al PositiveEBV ANTIBODY, [id number] 12:18:00 Test Item Value Reference Range Interpretation Comments LAUREEN WEBSTER VIRAL CAPSID Positive Negative, Equivocal A ANTIGEN IGG (BEAKER) (test code = 3415) Laureen Webster Viral Capsid Antigen IgG Result Interpretation: </= 0.8 Al Negative 0.9-1.0 Al Equivocal >/= 1.1 Al PositiveCARDIOLIPIN ANTIBODIES, IGG AND [id number] 12:18:00 Test Item Value Reference Range Interpretation Comments ANTICARDIOLIPIN IGG ANTIBODY (BEAKER) < GPL <20.0 (test code = 712) ANTICARDIOLIPIN IGM ANTIBODY (BEAKER) < MPL <20.0 (test code = 713) Anticardiolipin IgG Result Interpretation: <20.0 GPL Normal>/= 20.0 GPL PositiveAnticardiolipin IgM Result Interpretation: <20.0 MPL Normal>/= 20.0 MPL PositiveDOUBLE-STRANDED DNA (DSDNA) [id number] 11:08:00 Test Item Value Reference Range Interpretation Comments ANTI-DNA DS (BEAKER) (test code = Negative 9377) EBV ANTIBODY, [id number] 10:52:00 Test Item Value Reference Range Interpretation Comments LAUREEN WEBSTER VIRAL CAPSID Negative Negative, Equivocal ANTIGEN IGM (BEAKER) (test code = 3418) Laureen Webster Viral Capsid Antigen IgM Result Interpretation: </= 0.8 Al Negative 0.9-1.0 Al Equivocal >/= 1.1 Al PositiveVARICELLA ZOSTER ANTIBODY, [id number] 10:52:00 Test Item Value Reference Range Interpretation Comments VARICELLA ZOSTER IGG (AL) (BEAKER) 7.3 (test code = 3197) VARICELLA ZOSTER RESULT INTERPRETATIONS: <=0.8 Al Nonreactive: Presumed non-immune to VZV 0.9-1.0 Al Equivocal >=1.1 Al Reactive: Presumed immune to [id number] 13:57:00 Test Item Value Reference Range Interpretation Comments RPR SCREEN (BEAKER) (test code = Nonreactive Nonreactive 420) 1:1 MIXING STUDY, [id number] 11:12:00 Test Item Value Reference Range Interpretation Comments PROTIME (BEAKER) (test code = 13.8 seconds 11.7-14.7 759) PARTIAL THROMBOPLASTIN TIME 31.6 seconds 22.5-36.0 (BEAKER) (test code = 760) PT 1/1 MIX (BEAKER) (test code = 13.5 SECS 11.7-14.7 1595) PTT 1/1 MIX (BEAKER) (test code 31.9 SECS 22.5-36.0 = 1596) HEPATITIS B SURFACE [id number] 10:16:00 Test Item Value Reference Range Interpretation Comments HEPATITIS B SURFACE ANTIBODY < mIU/mL <8.0 (BEAKER) (test code = 647) HEPATITIS B SURFACE [id number] 09:48:00 Test Item Value Reference Range Interpretation Comments HEPATITIS B SURFACE ANTIGEN (2) Nonreactive Nonreactive (BEAKER) (test code = 2585) HEPATITIS B CORE ANTIBODY, [id number] 09:48:00 Test Item Value Reference Range Interpretation Comments HEPATITIS B CORE IGM ANTIBODY Nonreactive Nonreactive (BEAKER) (test code = 645) HEPATITIS C [id number] 09:42:00 Test Item Value Reference Range Interpretation Comments HEPATITIS C ANTIBODY (BEAKER) Nonreactive Nonreactive (test code = 367) HIV-1 ANTIGEN WITH HIV-1/2 [id number] 09:42:00 Test Item Value Reference Range Interpretation Comments HIV-1 ANTIGEN WITH HIV 1\T\2 Nonreactive Nonreactive ANTIBODY (2) (BEAKER) (test code = 2586) HEMOGLOBIN [id number] 09:33:00 Test Item Value Reference Range Interpretation Comments HEMOGLOBIN A1C (BEAKER) (test code = 5.2 % 4.3-6.1 368) COMPLEMENT COMPONENT [id number] 09:29:00 Test Item Value Reference Range Interpretation Comments C4 COMPLEMENT (BEAKER) (test code = 39 mg/dL 15-57 394) COMPLEMENT COMPONENT [id number] 09:29:00 Test Item Value Reference Range Interpretation Comments C3 COMPLEMENT (BEAKER) (test code = 82 mg/dL 82-193 393) COMPREHENSIVE METABOLIC [id number] 09:29:00 Test Item Value Reference Range Interpretation [...] NOT APPLICABLE FOR DIALYSIS PATIEN TS. URIC [id number] 09:25:00 Test Item Value Reference Range Interpretation Comments URIC ACID (BEAKER) (test code = 10.3 mg/dL 2.6-7.2 H 773) [id number] 09:25:00 Test Item Value Reference Range Interpretation [...] U/L 125-220 H code = 635) PTH, [id number] 09:19:00 Test Item Value Reference Range Interpretation Comments PARATHYROID HORMONE INTACT 315.4 pg/mL 8.5-72.5 H (BEAKER) (test code = 577) URINALYSIS W/ [id number] 09:08:00 Test Item Value Reference Range Interpretation [...] = 516) SOURCE(BEAKER) (test code = 2795) [id number] 08:58:00 Test Item Value Reference Range Interpretation [...] % 0-1 PERCENT (BEAKER) (test code = 2801)
[2021-07-19 11:55] LABS: Absolute Lymphocytes (CBC) 0.9 K/uL (0.7-4.9); Basophils % 0.5 % (0-1.3); Hematocrit 29.4 % (36.0-45.0); Lymphocytes % 16.8 % (15.3-44.8); MPV 10.1 fL (7.6-11.3); RBC Red Blood Cell Count 3.06 M/uL (3.86-4.86)
[2021-07-19 12:06] LABS: Protime INR 1.21
--- NOTE | 2021-07-19 12:22 | RAD REPORT ---
EXAM DESCRIPTION: CT - Abdomen Pelvis Wo Contrast - 07/19/2021 12:06 pm CLINICAL HISTORY: Abdominal pain COMPARISON: June 23, 2021 TECHNIQUE: Computed axial tomography of the abdomen and pelvis was obtained. IV and oral contrast we re not requested. All CT scans are performed using dose optimization technique as appropriate and may include automated exposure control or mA/KV adjustment according to patient size. FINDINGS: The evaluation of solid organs, vessels and bowel is limited secondary to the lack of contrast admin istration. Mild alveolar opacities within the lung bases. The liver, spleen, pancreas, and adrenals appear grossly normal. Small kidneys. No hydronephrosis. Small nonobstructing renal calculi. There is no evidence of diverticulitis. A peritoneal dialysis catheter within the pelvis. Small amount of ascites . Calcified uterine fibroid . Vascular calcifications IMPRESSION: Mild bibasilar lung opacities may represent pneumonia or pulmonary edema
--- NOTE | 2021-07-19 12:23 | RAD REPORT ---
EXAM DESCRIPTION: Dolly Single View07/19/2021 12:15 pm CLINICAL HISTORY: sob COMPARISON: June 26, 2021 FINDINGS: Mild bilateral pulmonary opacities. Heart is mildly enlarged. Pacemaker leads in place IMPRESSION: Mild bilateral pulmonary opacities may represent pulmonary edema or pneumonia
[2021-07-19 12:31] LABS: ALT/SGPT 27 U/L (12-78); AST/SGOT 27 U/L (15-37); Albumin 2.3 g/dL (3.4-5.0); Alkaline Phosphatase 137 U/L (45-117); BUN Blood Urea Nitrogen 93 mg/dL (7-18); Bicarbonate 27 mmol/L (21-32); Bilirubin Direct 0.2 mg/dL (0-0.2); Bilirubin Total 0.4 mg/dL (0.2-1.0); Glucose Level 95 mg/dL (74-106); Lipase 100 U/L (73-393); Magnesium 1.7 mg/dL (1.8-2.4); Protein, Total 5.9 g/dL (6.4-8.2); Sodium Level 140 mmol/L (136-145); Troponin (Emerg Dept Use Only) 0.32 ng/mL (0.0-0.045)
[2021-07-19 12:32] LABS: NT PRO-BNP > 175000 pg/mL (<125); Potassium 2.8 mmol/L (3.5-5.1)
--- NOTE | 2021-07-19 14:00 | ER ---
Nurse's Notes [facility] Name: Cheyanne Haywood Age: 70 yrs Sex: Female : 1950 Arrival Date: 07/19/2021 Time: 11:[address] Private MD: Nghia Jones E Diagnosis: Nausea;Abdominal tenderness;End stage renal disease-on PD;Hypokalemia;Non ST elevation AK Presentation: 07/19 11:25 Chief complaint: Patient states: "I was here admitted for a stomach infection and now I aa5 am having diarrhea since yesterday and feeling nauseated". Denies vomiting. Coronavirus screen: diarrhea. Ebola Screen: Patient negative for fever greater than or equal to 101.5 degrees Fahrenheit, and additional compatible Ebola Virus Disease symptoms. Initial Sepsis Screen: Does the patient meet any 2 criteria? No. Patient's initial sepsis screen is negative. Does the patient have a suspected source of infection? No. Patient's initial sepsis screen is negative. Risk Assessment: Do you want to hurt yourself or someone else? Patient reports no desire to harm self or others. Onset of symptoms was July 2021. 11:25 Method Of Arrival: Ambulatory aa5 11:25 Acuity: NORMA 3 aa5 Historical: - Allergies: 11:27 No Known Allergies; aa5 - Home Meds: 17:32 aspirin 81 mg Oral chew once daily [Active]; atorvastatin 40 mg Oral tab 0.5 tab once iw daily [Active]; calcitriol 0.25 mcg Oral cap [Active]; Cartia XT 240 mg Oral cp24 1 cap once daily for Hypertension [Active]; Lasix 80 mg Oral tab 1 tab 2 times per day [Active]; metoprolol tartrate 50 mg Oral tab 1 tab 2 times per day [Active]; midodrine Oral [Active]; sertraline 25 mg Oral tab 1 tab once daily [Active]; - PMHx: 11:27 Depression; ESRD; Hypertension; kidney problems; Lupus; PD- nightly; Peritoneal aa5 Dialysis; - PSHx: 11:27 Aortia repair; TAVR; aa5 - Immunization history:: Client reports receiving the 2nd dose of the Covid vaccine. - Social history:: Smoking status: Patient denies any tobacco usage or history of. Screenin:03 Abuse screen: Denies threats or abuse. Denies injuries from another. Nutritional zb screening: No deficits noted. Tuberculosis screening: No symptoms or risk factors identified. Fall Risk None identified. Assessment: 15:02 General: Appears in no apparent distress. uncomfortable, Behavior is calm, cooperative, zb appropriate for age. Pain: Complains of pain in left lower quadrant and right lower quadrant Pain currently is 7 out of 10 on a pain scale. Quality of pain is described as aching, sharp. Neuro: Level of Consciousness is awake, alert, obeys commands, Oriented to person, place, time, situation. Cardiovascular: Patient's skin is warm and dry. Respiratory: Reports shortness of breath on exertion Airway is patent Respiratory effort is even, unlabored. GI: Bowel sounds present X 4 quads. Abdomen is tender to palpation in umbilical area, right upper quadrant and left upper quadrant Reports diarrhea, nausea. : No deficits noted. No signs and/or symptoms were reported regarding the genitourinary system. Derm: Bruising that is dark purple, on right arm and left arm. Musculoskeletal: Range of motion: intact in all extremities. Vital Signs: 11:25 BP 120 / 80; Pulse 86; Resp 18 S; Temp 97.5(TE); Pulse Ox 96% on R/A; Weight 71.67 kg aa5 (R); Height 5 ft. 6 in. (167.64 cm) (R); 11:25 Body Mass Index 25.50 (71.67 kg, 167.64 cm) aa5 ED Course: 11:17 Patient arrived in ED. mr 11:17 Nghia Jones MD is Private Physician. mr 11:27 Triage completed. aa5 11:27 Arm band placed on. aa5 12:06 CT Abd/Pelvis - Without Contrast In Process Unspecified. EDMS 12:15 XRAY Chest (1 view) In Process Unspecified. EDMS 13:05 Jaime Carrizales MD is Attending Physician. mike 13:06 Donna Kim, DEBORAH is Primary Nurse. zb 13:58 Sanchez Barahona DO is Hospitalizing Provider. mike 15:04 Patient has correct armband on for positive identification. Bed in low position. Call zb light in reach. el teacher on. Pulse ox on. NIBP on. Door closed. Noise minimized. 15:04 Initial lab(s) drawn, by ED staff, sent to lab. EKG done, by customer account technician. reviewed by angel Carrizales MD COVID swab sent to lab. Inserted saline lock: 20 gauge in right forearm, using aseptic technique. ,using aseptic technique. completed by triage nurse Blood collected. Administered Medications: 14:30 Drug: Aspirin 162 mg Route: PO; zb 14:30 Drug: Zofran (Ondansetron) 4 mg Route: IVP; Site: right forearm; zb 15:22 Drug: Potassium Effervescent Tablet 25 mEq Route: PO; zb 15:22 Drug: Magnesium Sulfate 1 grams Route: IVPB; Infused Over: 1 hrs; Site: right forearm; zb 15:22 Drug: morphine 2 mg {Note: RASS +1.} Route: IVP; Site: right forearm; zb Outcome: 14:00 Decision to Hospitalize by Provider. [facility] 18:33 Patient left the ED. iw Signatures: Dispatcher [employer] EDMS Jaime Carrizales MD MD cha Rivera Poonam mr Joelle Harvey RN Ayanna Khanna RN RN aa5 Brown, Zipporah, RN RN zjavon Corrections: (The following items were deleted from the chart) 11:28 11:27 PMHx: M/W/F Dialysis; ori rehman
--- NOTE | 2021-07-19 14:00 | EDPHYS ---
Physician Documentation [facility] Name: Cheyanne Haywood Age: 70 yrs Sex: Female : 1950 Arrival Date: 07/19/2021 Time: 11:[address] Private MD: Nghia Jones E ED Physician Jaime Carrizales HPI: 07/19 13:52 This 70 yrs old Female presents to ER via Ambulatory with complaints of mike Abdominal Pain, Diarrhea, Nausea, Shortness Of Breath. 13:52 The patient presents to the emergency department with nausea, abdominal pain, of the mike right lower quadrant and left lower quadrant. Onset: The symptoms/episode began/occurred 2 day(s) ago. Possible causes: unknown. The symptoms are aggravated by nothing. The symptoms are alleviated by nothing. Associated signs and symptoms: Pertinent positives: abdominal pain, belching, nausea. Severity of symptoms: At their worst the symptoms were mild moderate in the emergency department the symptoms are unchanged. The patient has experienced similar episodes in the past, a few times. Historical: - Allergies: 11:27 No Known Allergies; aa5 - Home Meds: 17:32 aspirin 81 mg Oral chew once daily [Active]; atorvastatin 40 mg Oral tab 0.5 tab once iw daily [Active]; calcitriol 0.25 mcg Oral cap [Active]; Cartia XT 240 mg Oral cp24 1 cap once daily for Hypertension [Active]; Lasix 80 mg Oral tab 1 tab 2 times per day [Active]; metoprolol tartrate 50 mg Oral tab 1 tab 2 times per day [Active]; midodrine Oral [Active]; sertraline 25 mg Oral tab 1 tab once daily [Active]; - PMHx: 11:27 Depression; ESRD; Hypertension; kidney problems; Lupus; PD- nightly; Peritoneal aa5 Dialysis; - PSHx: 11:27 Aortia repair; TAVR; aa5 - Immunization history:: Client reports receiving the 2nd dose of the Covid vaccine. - Social history:: Smoking status: Patient denies any tobacco usage or history of. ROS: 13:55 Constitutional: Negative for fever, chills, and weight loss, Eyes: Negative for injury, mike pain, redness, and discharge, ENT: Negative for injury, pain, and discharge, Neck: Negative for injury, pain, and swelling, Cardiovascular: Negative for chest pain, palpitations, and edema, Back: Negative for injury and pain, : Negative for injury, bleeding, discharge, and swelling, MS/Extremity: Negative for injury and deformity, Skin: Negative for injury, rash, and discoloration, Neuro: Negative for headache, weakness, numbness, tingling, and seizure, Psych: Negative for depression, anxiety, suicide ideation, homicidal ideation, and hallucinations, Allergy/Immunology: Negative for hives, rash, and allergies, Endocrine: Negative for neck swelling, polydipsia, polyuria, polyphagia, and marked weight changes, Hematologic/Lymphatic: Negative for swollen nodes, abnormal bleeding, and unusual bruising. 13:55 Respiratory: Positive for cough, with no reported sputum. 13:55 Abdomen/GI: Positive for abdominal pain, nausea, of the right lower quadrant and left lower quadrant. Exam: 13:55 Constitutional: This is a well developed, well nourished patient who is awake, alert, mike and in no acute distress. Head/Face: Normocephalic, atraumatic. Eyes: Pupils equal round and reactive to light, extra-ocular motions intact. Lids and lashes normal. Conjunctiva and sclera are non-icteric and not injected. Cornea within normal limits. Periorbital areas with no swelling, redness, or edema. ENT: Nares patent. No nasal discharge, no septal abnormalities noted. Tympanic membranes are normal and external auditory canals are clear. Oropharynx with no redness, swelling, or masses, exudates, or evidence of obstruction, uvula midline. Mucous membranes moist. Neck: Trachea midline, no thyromegaly or masses palpated, and no cervical lymphadenopathy. Supple, full range of motion without nuchal rigidity, or vertebral point tenderness. No Meningismus. Chest/axilla: Normal chest wall appearance and motion. Nontender with no deformity. No lesions are appreciated. Cardiovascular: Regular rate and rhythm with a normal S1 and S2. No gallops, murmurs, or rubs. Normal PMI, no JVD. No pulse deficits. Back: No spinal tenderness. No costovertebral tenderness. Full range of motion. Female : Normal external genitalia. Skin: Warm, dry with normal turgor. Normal color with no rashes, no lesions, and no evidence of cellulitis. MS/ Extremity: Pulses equal, no cyanosis. Neurovascular intact. Full, normal range of motion. Neuro: Awake and alert, GCS 15, oriented to person, place, time, and situation. Cranial nerves II-XII grossly intact. Motor strength 5/5 in all extremities. Sensory grossly intact. Cerebellar exam normal. Normal gait. Psych: Awake, alert, with orientation to person, place and time. Behavior, mood, and affect are within normal limits. 13:55 Respiratory: the patient does not display signs of respiratory distress, Respirations: normal, no acute changes, Breath sounds: decreased breath sounds, that are mild, are located in both bases, rhonchi, are not appreciated, stridor, is not appreciated. 14:03 ECG was reviewed by the Attending Physician. [facility] Vital Signs: 11:25 BP 120 / 80; Pulse 86; Resp 18 S; Temp 97.5(TE); Pulse Ox 96% on R/A; Weight 71.67 kg aa5 (R); Height 5 ft. 6 in. (167.64 cm) (R); 11:25 Body Mass Index 25.50 (71.67 kg, 167.64 cm) aa5 MDM: 13:05 Patient medically screened. [facility] 14:02 Antibiotic administration: Not indicated. Differential diagnosis: Anemia CHF mike exacerbation, Nonspecific abd pain, gastritis, pancreatitis, viral gastroenteritis, gastroenteritis. The patient's Wells Deep Vein Thrombosis Score was calculated as follows: Total Score: 0-2 Pts- Low Risk. The patient's pulmonary embolism risk score was calculated as follows: Total Score: 0-2 points. This patient was found to be at low risk for a pulmonary embolism by using the Well's assessment criteria. Immunization status: Pneumococcal vaccine: within last 5 years. Influenza vaccine: within last 5 years. Data reviewed: vital signs, nurses notes, lab test result(s), EKG, radiologic studies, CT scan, plain films. Data interpreted: desk monitor: rate is 86 beats/min, rhythm is regular, Pulse oximetry: on room air is 96 %. Test interpretation: by ED physician or midlevel provider: ECG, plain radiologic studies. Counseling: I had a detailed discussion with the patient and/or guardian regarding: the historical points, exam findings, and any diagnostic results supporting the discharge/admit diagnosis, lab results, radiology results, the need for further work-up and treatment in the hospital. 07/19 11:28 Order name: Basic Metabolic Panel; Complete Time: 13:50 aa5 07/19 11:28 Order name: CBC with Diff; Complete Time: 17:28 aa5 07/19 11:28 Order name: LFT's; Complete Time: 13:50 aa5 07/19 11:28 Order name: Magnesium; Complete Time: 13:50 aa5 07/19 11:28 Order name: NT PRO-BNP; Complete Time: 13:50 aa5 07/19 11:28 Order name: PT-INR; Complete Time: 13:50 aa5 07/19 11:28 Order name: Troponin (emerg Dept Use Only); Complete Time: 13:50 aa5 07/19 11:45 Order name: Lipase; Complete Time: 13:50 EDAK 07/19 13:39 Order name: CBC Smear Scan; Complete Time: 17:28 EDAK 07/19 14:43 Order name: CKMB Creatine Kinase MB EDAK 07/19 14:43 Order name: CKMB Creatine Kinase MB EDAK 07/19 14:43 Order name: CKMB Creatine Kinase MB EDAK 07/19 14:43 Order name: CKMB Creatine Kinase MB EDMS 07/19 14:43 Order name: Comprehensive Metabolic Panel EDAK 07/19 14:43 Order name: Comprehensive Metabolic Panel EDAK 07/19 14:43 Order name: Creatine Phosphokinase EDAK 07/19 14:43 Order name: Creatine Phosphokinase EDAK 07/19 14:43 Order name: Creatine Phosphokinase EDMS 07/19 14:43 Order name: Creatine Phosphokinase EDMS 07/19 14:43 Order name: Protime (+INR) EDMS 07/19 14:43 Order name: Protime (+INR) EDMS 07/19 14:43 Order name: Magnesium EDMS 07/19 14:44 Order name: Ionized Calcium EDMS 07/19 14:44 Order name: Phosphorus; Complete Time: 17:28 EDMS 07/19 14:44 Order name: Liver (Hepatic) Function EDMS 07/19 14:47 Order name: Potassium EDMS 07/19 14:55 Order name: CORONAVIRUS EDMS 07/19 15:47 Order name: SARS-COV-2 RT PCR; Complete Time: 17:28 EDMS 07/19 11:28 Order name: XRAY Chest (1 view); Complete Time: 13:50 5 07/19 11:28 Order name: IV Saline Lock; Complete Time: 11:39 aa5 07/19 11:28 Order name: Labs collected and sent; Complete Time: 11:39 aa5 07/19 11:43 Order name: CT Abd/Pelvis - Without Contrast; Complete Time: 13:50 iw 07/19 14:43 Order name: Renal EDMS 07/19 17:56 Order name: C-Reactive Protein EDMS 07/19 17:56 Order name: Ferritin EDMS EC:03 Rate is 86 beats/min. Rhythm is regular. QRS [place] is Normal. [place] interval is normal. QRS mike interval is normal. QT interval is normal. Clinical impression: Abnormal EKG without significant change. Interpreted by me. Administered Medications: 14:30 Drug: Aspirin 162 mg Route: PO; zb 14:30 Drug: Zofran (Ondansetron) 4 mg Route: IVP; Site: right forearm; zb 15:22 Drug: Potassium Effervescent Tablet 25 mEq Route: PO; zb 15:22 Drug: Magnesium Sulfate 1 grams Route: IVPB; Infused Over: 1 hrs; Site: right forearm; zb 15:22 Drug: morphine 2 mg {Note: RASS +1.} Route: IVP; Site: right forearm; zb Disposition Summary: 07/19/21 14:00 Hospitalization Ordered Hospitalization Status: Observation mike Provider: Sanchez Barahona cha Condition: Fair mike Problem: new mike Symptoms: have improved mike Bed/Room Type: Standard mike Location: Telemetry/MedSurg (observation)(07/19/21 17:31) em1 Room Assignment: 208(07/19/21 17:31) em1 Diagnosis - Nausea mike - Abdominal tenderness mike - End stage renal disease - on PD mike - Hypokalemia mike - Non ST elevation IN mike Forms: - Medication Reconciliation Form mike - SBAR form mike Signatures: Dispatcher [employer] EDMS Jaime Carrizales MD MD cha Williams, Irene, RN Bret Izaguirre em1 Ayanna Saenz RN RN aa5 Brown, Zipporah, RN RN zb Corrections: (The following items were deleted from the chart) 11:28 11:27 PMHx: M/W/F Dialysis; aa5 aa5 11:45 11:31 LIPASE+C.LAB.BRZ ordered. EDMS EDMS 14:43 13:56 CORONAVIRUS+MR.LAB.BRZ ordered. EDMS EDMS 17:16 14:00 Telemetry/MedSurg (observation) [facility] 17:16 14:00 [facility] 17:31 17:16 [facility] ER HOLD iw em1 17:31 17:16 ERHOLD- iw em1
[2021-07-19 14:25] LABS: Blood Morphology Comment NOT SEEN (NOT SEEN); Platelet Estimate DECR; White Blood Cell Scan OK (OK)
--- NOTE | 2021-07-19 14:37 | P.HP ---
Certification for Inpatient With expected LOS: <2 Midnights Patient will require the following post-hospital care: None Practitioner: I am a practitioner with admitting privileges, knowledge of patient current condition, hospital course, and medical plan of care. Services: Services provided to patient in accordance with Admission requirements found in Title 42 Section 412.3 of the Code of Federal Regulations <Kaylyn Garcia - Last Filed: 07/19/21 15:42> Patient History Date of Service: 07/19/21 Reason for admission: nausea , low K History of Present Illness: 70 year old female with PMHx of ESRD on PD , hypertension , coronary artery disease presents to ED for evaluation of nausea , diarrhea. She has been having intermittent loose watery diarrhea for past several weeks. She came to Ed 2 weeks ago and received flagyl and steroid which she has been taking with no issues. Yesterday , she developed shortness of breath and abdominal cramps and came to ED today for evaluation. She is on home PD and her work up is noted for potassium 2.8 , creatinine 9.86, CXR & CT showed pulmonary edema. She denies fever , chest pain. Fully vaccinated against COVID-19. - Past Medical/Surgical History Diabetic: No -: Hypertension -: Aortic valve replacement -: Coronary artery disease, CABG x1 vessel -: Lupus -: Chronic renal disease -: Anemia of chronic disease -: Depression -: Aortic valve replacement -: CABG x1 vessel -: Breast biopsies -: D&C Psychosocial/ Personal History: The patient is . She has children. She does not work. - Family History Mother -: Other (see notes) Notes: ALS Father -: Heart disease, Diabetes - Social History Alcohol use: No CD- Drugs: No Caffeine use: No <RadhaKaylyn - Last Filed: 07/19/21 15:42> Date of Service: 07/19/21 Primary Care Provider: Dr. Jones; Nephrology-Dr. eCrda Home medications list reviewed: Yes - Social History Smoking Status: Never smoker Place of Residence: Home <Sanchez Barahona - Last Filed: 07/19/21 16:12> Allergies No Known Drug Allergies Allergy (Verified 04/07/21 12:42) Unknown Home Medications: Aspirin [Aspirin EC 81 MG] 81 mg PO DAILY 04/07/21 Atorvastatin Calcium [Lipitor*] 40 mg PO BEDTIME 04/07/21 Azelastine HCl 205.5 mcg NS BID PRN 04/07/21 Carvedilol [Coreg] 25 mg PO BID 04/07/21 Cinacalcet HCl 30 mg PO DAILY 04/07/21 Epoetin Frederic-Epbx [Retacrit] 13,000 unit SQ SEECOM 04/07/21 Febuxostat 40 mg PO DAILY 04/07/21 Fluticasone [Flonase 50MCG Nasal [place]*] 2 sprays NS BID PRN 04/07/21 Heparin Sodium,Porcine/Pf [Heparin 500 Unit/5 ml (100/ml)] 500 unit IV SEECOM 04/07/21 Sertraline [Zoloft*] 100 mg PO DAILY 04/07/21 Sevelamer Carbonate [Renvela*] 3,200 mg PO TIDWM 04/07/21 Vit B Comp C/Folic Acid/Vit D3 [Dialyvite 800 Plus D Wafer] 1 each PO DAILY 04/07/21 Calcitrol [Rocaltrol*] 1 cap PO DAILY 06/24/21 Ergocalciferol (Vitamin D2) [Vitamin D2] 1 cap PO SEECOM 06/24/21 Midodrine HCl [Proamatine*] 1 tab PO DAILY 06/24/21 metroNIDAZOLE [Flagyl] 250 mg PO Q8H #20 tablet 06/26/21 predniSONE [Prednisone*] 20 mg PO BID #14 tab 06/26/21 Review of Systems General: Unremarkable Eyes: Unremarkable ENT: Unremarkable Respiratory: Unremarkable Cardiovascular: Unremarkable Gastrointestinal: Nausea, Vomiting, Abdominal Pain Musculoskeletal: Unremarkable Integumentary: Unremarkable Neurological: Unremarkable <Radha,Kaylyn - Last Filed: 07/19/21 15:42> Physical Examination - Physical Exam General: Alert, In no apparent distress, Oriented x3 HEENT: Atraumatic, Normocephalic, PERRLA, Mucous membr. moist/pink, Sclerae nonicteric Neck: Supple, 2+ carotid pulse no bruit, JVD not distended, Without JVD or thyroid abnormality Respiratory: Clear to auscultation bilaterally, Normal air movement Cardiovascular: No edema, Normal pulses, Regular rate/rhythm Gastrointestinal: Normal bowel sounds, No tenderness, No masses, No rebound, No guarding Musculoskeletal: No clubbing, No swelling, No contractures, No erythema, No tenderness Integumentary: No rashes, No breakdown, No significant lesion, No tenderness/swelling Neurological: Normal gait, Normal speech, Normal strength at 5/5 x4 extr - Studies Laboratory Data (last 24 hrs) 07/19/21 11:34: Lipase Cancelled 07/19/21 11:34: PT 13.9 H, INR 1.21 07/19/21 11:34: WBC 5.40, Hgb 9.7 L, Hct 29.4 L, Plt Count 94 L 07/19/21 11:34: Sodium 140, Potassium 2.8 L*, BUN 93 H, Creatinine 9.86 H*, Glucose 95, Magnesium 1.7 L, Total Bilirubin 0.4, AST 27, ALT 27, Alkaline Phosphatase 137 H, Lipase 100 <Kaylyn Garcia - Last Filed: 07/19/21 15:42> - Studies Laboratory Data (last 24 hrs) 07/19/21 11:34: Lipase Cancelled 07/19/21 11:34: PT 13.9 H, INR 1.21 07/19/21 11:34: WBC 5.40, Hgb 9.7 L, Hct 29.4 L, Plt Count 94 L 07/19/21 11:34: Sodium 140, Potassium 2.8 L*, BUN 93 H, Creatinine 9.86 H*, Glucose 95, Magnesium 1.7 L, Total Bilirubin 0.4, AST 27, ALT 27, Alkaline Phosphatase 137 H, Lipase 100 <Sanchez Barahona - Last Filed: 07/19/21 16:12> Assessment and Plan - Plan Assessment: 1. Hypokalemia 2. Nausea, vomiting 3. ESRD Plan: 1. Hypokalemia: Replete K per protocol Continue to monitor electrolytes 2. Nausea, diarrhea: Zofran as needed Continue to monitor Stool culture pending to r/o c.diff 3. ESRD: Home PD Nephro consult placed. Awaiting recommendation 4.Pulmonary Edema: CT chest and CXR noted for pulmonary edema Discharge Plan: Home Plan to discharge in: 24 Hours - Advance Directives Does patient have a Living Will: No Does patient have a Durable POA for Healthcare: No Time Spent Managing Pts Care (In Minutes): 55 <Kaylyn Garcia - Last Filed: 07/19/21 15:42> - Plan Case discussed in length with physician assistant spa manager. Agree with plan of care. Patient seen and evaluated. COVID: Negative CT scan: FINDINGS: The evaluation of solid organs, vessels and bowel is limited secondary to the lack of contrast administration. Mild alveolar opacities within the lung bases. The liver, spleen, pancreas, and adrenals appear grossly normal. Small kidneys. No hydronephrosis. Small nonobstructing renal calculi. There is no evidence of diverticulitis. A peritoneal dialysis catheter within the pelvis. Small amount of ascites . Ca lcified uterine fibroid. Vascular calcifications IMPRESSION: Mild bibasilar lung opacities may represent pneumonia or pulmonary edema CXR: COMPARISON: June 26, 2021 FINDINGS: Mild bilateral pulmonary opacities. Heart is mildly enlarged. Pacemaker leads in place IMPRESSION: Mild bilateral pulmonary opacities may represent pulmonary edema or pneumonia Impression: Nausea, vomiting, abdominal pain likely colitis suspect inflammatory with history of lupus End-stage renal disease on peritoneal dialysis Pulmonary edema likely secondary to chronic diastolic CHF Elevated troponin likely ischemic demand with history of CAD Hypertension Anemia chronic disease Depression Chronic thrombocytopenia Plan: Nausea, vomiting, abdominal pain likely colitis suspect inflammatory with history of lupus: Patient has seen GI in the recent past. She is to have an EGD here soon. Patient sees Dr. Russo. We will try to reach out to GI for further recommendations. Suspect inflammatory process due to her history of lupus. Will check ferritin, CRP and RADHA. Will also check stool cultures for C. difficile, O&P and culture. Will start IV Flagyl. Continue IV Solu-Medrol. We will start with a clear liquid diet. Advanced as tolerated. Continue with her peritoneal dialysis. Hold off on Lasix at this time. End-stage renal disease on peritoneal dialysis: Continue with peritoneal dialysis. Family to bring in materials to continue. Pulmonary edema likely secondary to chronic diastolic CHF: Patient without respiratory distress. Nephrology started Lasix. Will need to monitor hypokalemia. Elevated troponin likely ischemic demand with history of CAD: Will consult cardiology. Monitor troponin. Likely no need for intervention. Hypertension: Obtain and verify home medication Anemia chronic disease: Will monitor closely Depression: Continue with home medication Chronic thrombocytopenia: We will monitor this closely. DVT prophylaxis: SCD CODE STATUS: Full code Advance care planning: Home at discharge <Sanchez Barahona - Last Filed: 07/19/21 16:12>
[2021-07-19] MEDS ORDERED: ONDANSETRON 4 MG/2 ML VIAL IV PRN (14:38)
[2021-07-19] MEDS ORDERED: ACETAMINOPHEN 500 MG TAB PO PRN (14:38)
[2021-07-19] MEDS ORDERED: ASPIRIN 81 MG CHEWABLE TABLET ONE (14:52)
[2021-07-19] MEDS ORDERED: MORPHINE 2 MG/ML SYR ONE (14:52)
[2021-07-19] MEDS ORDERED: ONDANSETRON 4 MG/2 ML VIAL ONE (14:53)
[2021-07-19] MEDS ORDERED: POTASSIUM 25 MEQ EFFERV TAB ONE (14:53)
[2021-07-19] MEDS ORDERED: MAGNESIUM SULFATE 1 gm IVPB 1 GM/100 ML BAG IV ONE (14:53)
[2021-07-19] MEDS ORDERED: METHYLPRED NA SUC 1,000 MG in NA CHLORIDE 0.9% 100 ML IV ONE (15:49)
[2021-07-19] MEDS ORDERED: INSULIN -REGULAR HUMAN 50 UNIT/0.5 ML ML SQ SCH ×2 (16:30)
[2021-07-19] MEDS ORDERED: METHYLPREDNISOLONE 40 MG INJ IV SCH (17:00)
[2021-07-19] MEDS: FUROSEMIDE 40 MG/4 ML VIAL IV SCH (17:00)
[2021-07-19 17:56] LABS: C-Reactive Protein 38.7 mg/L (<3.00); Ferritin 623.3 ng/mL (8-388)
[2021-07-19] MEDS ORDERED: metroNIDAZOLE 500 MG TABLET PO SCH (18:00)
[2021-07-19 19:16] VITALS: BMI 25.4
[2021-07-19] MEDS: METRONIDAZOLE 500mg IVPB 500 MG/100 ML BAG IV SCH (20:26)
[2021-07-19] MEDS: POTASSIUM CL SA 10 MEQ TAB PO SCH (20:26)
[2021-07-19] MEDS: METHYLPREDNISOLONE 40 MG INJ IV SCH (20:28)
[2021-07-20 00:24] LABS: C-Reactive Protein 42.1 mg/L (<3.00); Ferritin 634.3 ng/mL (8-388)
[2021-07-20] MEDS: FUROSEMIDE 40 MG/4 ML VIAL IV SCH ×2 (01:00→08:28)
[2021-07-20] MEDS: METRONIDAZOLE 500mg IVPB 500 MG/100 ML BAG IV SCH ×3 (01:54→08:28)
[2021-07-20] MEDS: METHYLPREDNISOLONE 40 MG INJ IV SCH ×3 (01:55→08:28)
--- NOTE | 2021-07-20 06:00 | P.PN ---
Subjective Date of Service: 07/20/21 Primary Care Provider: Dr. Jones; Nephrology-Dr. Cerda Chief Complaint: nausea , low K Subjective: Improving, Other (no nausea, vomiting, abdominal pain or diarrhea) Physical Examination - Vital Signs Temperature: 97.3 F Blood Pressure: 133/54 Pulse: 74 Respirations: 19 Pulse Ox (%): 97 - Studies Laboratory Data (last 24 hrs) 07/19/21 11:34: Phosphorus 4.2, Magnesium Cancelled 07/19/21 11:34: Lipase Cancelled 07/19/21 11:34: PT 13.9 H, INR 1.21 07/19/21 11:34: WBC 5.40, Hgb 9.7 L, Hct 29.4 L, Plt Count 94 L 07/19/21 11:34: Sodium 140, Potassium 2.8 L*, BUN 93 H, Creatinine 9.86 H*, Glucose 95, Magnesium 1.7 L, Total Bilirubin 0.4, AST 27, ALT 27, Alkaline Phosphatase 137 H, Lipase 100 Assessment & Plan Discharge Plan: Home Plan to discharge in: 24 Hours Physician Review Additional Text: COVID: Negative CT Scan: FINDINGS: The evaluation of solid organs, vessels and bowel is limited secondary to the lack of contrast administration. Mild alveolar opacities within the lung bases. The liver, spleen, pancreas, and adrenals appear grossly normal. Small kidneys. No hydronephrosis. Small nonobstructing renal calculi. There is no evidence of diverticulitis. A peritoneal dialysis catheter within the pelvis. Small amount of ascites . Calcified uterine fibroid. Vascular calcifications IMPRESSION: Mild bibasilar lung opacities may represent pneumonia or pulmonary edema CXR: COMPARISON: June 26, 2021 FINDINGS: Mild bilateral pulmonary opacities. Heart is mildly enlarged. Pacemaker leads in place IMPRESSION: Mild bilateral pulmonary opacities may represent pulmonary edema or pneumonia Physical Exam: General: Alert, In no apparent distress, Oriented x3 HEENT: neck supple Respiratory: Clear to auscultation bilaterally, Normal air movement Cardiovascular: No edema, Normal pulses, Regular rate/rhythm Gastrointestinal: Normal bowel sounds, No tenderness, No masses, No rebound, No guarding Musculoskeletal: No clubbing, No swelling, No contractures, No erythema, No tenderness Integumentary: No rashes, No breakdown, No significant lesion, No tenderness/swelling Neurological: Normal gait, Normal speech, Normal strength at 5/5 x4 extr Impression: Nausea, vomiting, abdominal pain likely colitis suspect inflammatory with history of lupus End-stage renal disease on peritoneal dialysis Pulmonary edema likely secondary to chronic diastolic CHF Elevated troponin likely ischemic demand with history of CAD Hypertension Anemia chronic disease Depression Chronic thrombocytopenia Plan: Nausea, vomiting, abdominal pain likely colitis suspect inflammatory with history of lupus: Patient doing well. No nausea, vomiting, pain or diarrhea. Patient on Flagyl and Solumedrol IV. To see Gi this Wednesday. Will advance diet. If tolerates diet today will plan to DC home if OK with nephrology. Will discuss with nephrology today. Await cultures. If the Patient remains till tomorrow, then I will address with the Hospitalist team who will take over the patient tomorrow. I will go over the plan of care. End-stage renal disease on peritoneal dialysis: Continue with peritoneal dialysis. Family to bring in materials to continue. Renal function stable. Pulmonary edema likely secondary to chronic diastolic CHF: Patient without respiratory distress. Nephrology started Lasix and aldactone Elevated troponin likely ischemic demand with history of CAD: Will discuss with cardiology. Monitor troponin. Likely no need for intervention. Hypertension: Review home meds Anemia chronic disease: Will monitor closely Depression: Continue with home medication Chronic thrombocytopenia: Will monitor this closely. DVT prophylaxis: SCD CODE STATUS: Full code Advance care planning: Home at discharge Time Spent Managing Pts Care (In Minutes): 55
[2021-07-20 06:21] LABS: Absolute Lymphocytes (CBC) 0.3 K/uL (0.7-4.9); Basophils % 0.4 % (0-1.3); Hematocrit 25.6 % (36.0-45.0); Lymphocytes % 14.6 % (15.3-44.8); MPV 10.7 fL (7.6-11.3); Protime INR 1.25; RBC Red Blood Cell Count 2.71 M/uL (3.86-4.86)
[2021-07-20 07:00] LABS: Albumin 2.1 g/dL (3.4-5.0); Bilirubin Total 0.4 mg/dL (0.2-1.0); CKMB Creatine Kinase MB 2.7 ng/mL (1.0-3.6); Magnesium 2.1 mg/dL (1.8-2.4); Potassium 3.3 mmol/L (3.5-5.1); Protein, Total 5.4 g/dL (6.4-8.2); Thyroid Stimulating Hormone 0.851 uIU/mL (0.360-3.740)
--- NOTE | 2021-07-20 07:46 | P.PN ---
Subjective Date of Service: 07/20/21 Primary Care Provider: Dr. Jones; Nephrology-Dr. Cerda Chief Complaint: nausea , low K Physical Examination - Vital Signs Temperature: 97.3 F Blood Pressure: 133/54 Pulse: 74 Respirations: 19 Pulse Ox (%): 97 - Studies Laboratory Data (last 24 hrs) 07/19/21 11:34: Phosphorus 4.2, Magnesium Cancelled 07/19/21 11:34: Lipase Cancelled 07/19/21 11:34: PT 13.9 H, INR 1.21 07/19/21 11:34: WBC 5.40, Hgb 9.7 L, Hct 29.4 L, Plt Count 94 L 07/19/21 11:34: Sodium 140, Potassium 2.8 L*, BUN 93 H, Creatinine 9.86 H*, Glucose 95, Magnesium 1.7 L, Total Bilirubin 0.4, AST 27, ALT 27, Alkaline Phosphatase 137 H, Lipase 100 Assessment And Plan - Plan Assessment: 1. Hypokalemia 2. Nausea, vomiting 3. ESRD Plan: 1. Hypokalemia: Replete K per protocol Continue to monitor electrolytes 2. Nausea, diarrhea: Zofran as needed Continue to monitor Stool culture pending to r/o c.diff 3. ESRD: Home PD Nephro consult placed. Awaiting recommendation 4.Pulmonary Edema: CT chest and CXR noted for pulmonary edema Physician Review Additional Text: COVID: Negative CT Scan: FINDINGS: The evaluation of solid organs, vessels and bowel is limited secondary to the lack of contrast administration. Mild alveolar opacities within the lung bases. The liver, spleen, pancreas, and adrenals appear grossly normal. Small kidneys. No hydronephrosis. Small nonobstructing renal calculi. There is no evidence of diverticulitis. A peritoneal dialysis catheter within the pelvis. Small amount of ascites . Calcified uterine fibroid. Vascular calcifications IMPRESSION: Mild bibasilar lung opacities may represent pneumonia or pulmonary edema CXR: COMPARISON: June 26, 2021 FINDINGS: Mild bilateral pulmonary opacities. Heart is mildly enlarged. Pacemaker leads in place IMPRESSION: Mild bilateral pulmonary opacities may represent pulmonary edema or pneumonia Physical Exam: General: Alert, In no apparent distress, Oriented x3 HEENT: Atraumatic, Normocephalic, PERRLA, Mucous membr. moist/pink, Sclerae nonicteric Neck: Supple, 2+ carotid pulse no bruit, JVD not distended, Without JVD or thyroid abnormality Respiratory: Clear to auscultation bilaterally, Normal air movement Cardiovascular: No edema, Normal pulses, Regular rate/rhythm Gastrointestinal: Normal bowel sounds, No tenderness, No masses, No rebound, No guarding Musculoskeletal: No clubbing, No swelling, No contractures, No erythema, No tenderness Integumentary: No rashes, No breakdown, No significant lesion, No tenderness/swelling Neurological: Normal gait, Normal speech, Normal strength at 5/5 x4 extr Impression: Nausea, vomiting, abdominal pain likely colitis suspect inflammatory with history of lupus End-stage renal disease on peritoneal dialysis Pulmonary edema likely secondary to chronic diastolic CHF Elevated troponin likely ischemic demand with history of CAD Hypertension Anemia chronic disease Depression Chronic thrombocytopenia Plan: Nausea, vomiting, abdominal pain likely colitis suspect inflammatory with history of lupus: Patient has seen GI in the recent past. She is to have an EGD here soon. Patient sees Dr. Russo. We will try to reach out to GI for further recommendations. Suspect inflammatory process due to her history of lupus. Will check ferritin, CRP and RADHA. Will also check stool cultures for C. d ifficile, O&P and culture. Will start IV Flagyl. Continue IV Solu-Medrol. We will start with a clear liquid diet. Advanced as tolerated. Continue with her peritoneal dialysis. Hold off on Lasix at this time. End-stage renal disease on peritoneal dialysis: Continue with peritoneal dialysis. Family to bring in materials to continue. Pulmonary edema likely secondary to chronic diastolic CHF: Patient without respiratory distress. Nephrology started Lasix. Will need to monitor hypokalemia. Elevated troponin likely ischemic demand with history of CAD: Will consult cardiology. Monitor troponin. Likely no need for intervention. Hypertension: Obtain and verify home medication Anemia chronic disease: Will monitor closely Depression: Continue with home medication Chronic thrombocytopenia: We will monitor this closely. DVT prophylaxis: SCD CODE STATUS: Full code Advance care planning: Home at discharge
[2021-07-20] MEDS: POTASSIUM CL SA 10 MEQ TAB PO SCH (08:29)
[2021-07-20 08:33] LABS: Blood Morphology Comment NOT SEEN (NOT SEEN); Platelet Estimate DECR; White Blood Cell Scan OK (OK)
[2021-07-20] MEDS ORDERED: FOLIC ACID 1 MG TABLET PO SCH (09:00)
[2021-07-20] MEDS ORDERED: THIAMINE HCL 100 MG TABLET PO SCH (09:00)
[2021-07-20] MEDS ORDERED: SPIRONOLACTONE 25 MG TABLET PO SCH (09:00)
[2021-07-20 11:04] VITALS: O2SAT 97
[2021-07-20 11:29] LABS: Body Fluid Source PERITONEAL
[2021-07-20 11:30] LABS: Appearance CLEAR (CLEAR); Body Fluid WBC 1 /mm^3; Color of fluid Colorless (COLORLESS)
--- NOTE | 2021-07-20 14:11 | P.DS ---
Admission Date: 07/19/21 Discharge Date: 07/20/21 Primary Care Provider: Dr. Jones; Nephrology-Dr. Cerda Disposition: ROUTINE DISCHARGE Discharge Condition: GOOD Reason for Admission: nausea , low K Consultations: Nephrology-Dr. Fuentes Procedures: COVID: Negative CT Scan: FINDINGS: The evaluation of solid organs, vessels and bowel is limited secondary to the lack of contrast administration. Mild alveolar opacities within the lung bases. The liver, spleen, pancreas, and adrenals appear grossly normal. Small kidneys. No hydronephrosis. Small nonobstructing renal calculi. There is no evidence of diverticulitis. A peritoneal dialysis catheter within the pelvis. Small amount of ascites . Calcified uterine fibroid. Vascular calcifications IMPRESSION: Mild bibasilar lung opacities may represent pneumonia or pulmonary edema CXR: COMPARISON: June 26, 2021 FINDINGS: Mild bilateral pulmonary opacities. Heart is mildly enlarged. Pacemaker leads in place IMPRESSION: Mild bilateral pulmonary opacities may represent pulmonary edema or pneumonia Medical Problem List: Nausea, vomiting, abdominal pain likely colitis suspect inflammatory with history of lupus End-stage renal disease on peritoneal dialysis Pulmonary edema likely secondary to chronic diastolic CHF Elevated troponin likely ischemic demand with history of CAD Hypertension Anemia chronic disease Depression Chronic thrombocytopenia Brief History of Present Illness: 70 year old female with PMHx of ESRD on PD , hypertension , coronary artery disease presents to ED for evaluation of nausea , diarrhea. She has been having intermittent loose watery diarrhea for past several weeks. She came to Ed 2 weeks ago and received flagyl and steroid which she has been taking with no issues. Yesterday , she developed shortness of breath and abdominal cramps and came to ED today for evaluation. She is on home PD and her work up is noted for potassium 2.8 , creatinine 9.86, CXR & CT showed pulmonary edema. She denies fever , chest pain. Fully vaccinated against COVID-19. Patient admitted for further evaluation and treatment. Hospital Course: Patient presented with nausea, vomiting and abdominal pain likely colitis inflammatory in nature. Patient with history of lupus. Patient had similar episode in the past. Patient was treated with IV Flagyl and Solu-Medrol. Her condition improved. Patient without significant nausea, vomiting and abdominal pain. No diarrhea noted. Patient tolerated her diet. Patient has follow-up with GI this week. At discharge the patient will continue with prednisone 20 mg 1 pill twice daily for 7 days then 1 pill once daily for 7 days. The patient will also continue with Flagyl 500 mg 3 times a day for 7 days. It is recommended that the patient continue with lactobacillus 3 times a day. Patient has follow-up with GI on Wednesday to further evaluate. Patient may require EGD colonoscopy in the future to further address. Patient with end-stage renal disease on peritoneal dialysis. Patient with underlying chronic diastolic CHF, CAD, hypertension, anemia of chronic disease, depression and chronic thrombocytopenia. The patient was given diuretic therapy with improvement. Nephrology was consulted. Troponin was elevated likely ischemic demand related to her condition. No intervention was needed. Patient will continue with her current peritoneal dialysis treatment. Continue with nephrology recommendations. Recommend to recheck labCBC, BMP in 1 week to follow-up his hospitalization. Recommend follow-up with nephrology within 1 week. Patient will continue with her current medications including Renvela and Verenice-Дмитрий as directed. Patient also takes Cinacalet and Febuxostat. She may continue with medication. Patient with history of hypertension. Patient also with chronic diastolic CHF. Patient takes Lasix for his CHF. Patient takes carvedilol 25 mg 1 pill twice daily, lisinopril 40 mg 1 pill twice daily, and clonidine 0.1 mg as needed. Blood pressures have been well controlled off medication. Patient was started on Lasix. New medication includes Aldactone 50 mg daily. At discharge will recommend to hold carvedilol, lisinopril and clonidine. Patient will resume Lasix as directed. Patient will also continue with Aldactone 50 mg daily. Recommend to monitor blood pressure daily. Recommend to maintain blood pressure less than 130/80. If blood pressures remain above 140/90 she is to contact nephrology for further recommendation. Patient will also continue with the 1500 cc/day fluid restriction and low-salt diet. If her weight increases by more than 5 pounds further adjustment in her diuretic therapyLasix/Aldactone may be needed. This can be done with the help of her PCP or nephrology. Patient with history of lupus. Recommend follow-up with rheumatology in the future to further evaluate and address. Patient with depression. At discharge she will continue with her medication Zoloft as directed. Patient with anemia of chronic disease and chronic thrombocytopenia. Patient will continue with VELPHORO as directed. Patient will continue with vitamin supplementation as directed. Recommend follow-up with hematology to further monitor and address. Vital Signs/Physical Exam: Temp Pulse Resp BP Pulse Ox 97.3 F 74 19 133/54 L 97 07/20/21 09:45 07/20/21 09:45 07/20/21 09:45 07/20/21 09:45 07/20/21 09:45 General: Alert, In no apparent distress, Oriented x3, Cooperative HEENT: Atraumatic Neck: Supple Respiratory: Clear to auscultation bilaterally, Normal air movement Cardiovascular: Normal pulses, Regular rate/rhythm Gastrointestinal: Normal bowel sounds, No ascites, No tenderness, No masses, No rebound, No guarding Musculoskeletal: No erythema, No tenderness, No warmth Integumentary: No tenderness/swelling, No erythema, No warmth, No cyanosis Neurological: Normal speech, Normal strength at 5/5 x4 extr, Normal tone Laboratory Data at Discharge: WBC 2.40 K/uL (4.3-10.9) L D 07/20/21 05:15 Hgb 8.6 g/dL (12.0-15.0) L 07/20/21 05:15 Hct 25.6 % (36.0-45.0) L 07/20/21 05:15 Plt Count 83 K/uL (152-406) L 07/20/21 05:15 PT 14.4 SECONDS (9.5-12.5) H 07/20/21 05:15 INR 1.25 07/20/21 05:15 APTT 31.2 SECONDS (24.3-36.9) 07/20/21 05:15 Sodium 139 mmol/L (136-145) 07/20/21 05:15 Potassium 3.3 mmol/L (3.5-5.1) L 07/20/21 05:15 BUN 85 mg/dL (7-18) H 07/20/21 05:15 Creatinine 8.95 mg/dL (0.55-1.3) H* 07/20/21 05:15 Glucose 176 mg/dL (74-106) H 07/20/21 05:15 Phosphorus 4.2 mg/dL (2.5-4.9) 07/19/21 11:34 Magnesium 2.1 mg/dL (1.8-2.4) 07/20/21 05:15 Total Bilirubin 0.4 mg/dL (0.2-1.0) 07/20/21 05:15 AST 20 U/L (15-37) 07/20/21 05:15 ALT 23 U/L (12-78) 07/20/21 05:15 Alkaline Phosphatase 118 U/L (45-117) H 07/20/21 05:15 Lipase 100 U/L (73-393) 07/19/21 11:34 Lipase Cancelled 07/19/21 11:34 Home Medications: Aspirin [Aspirin EC 81 MG] 81 mg PO DAILY 04/07/21 Atorvastatin Calcium [Lipitor*] 20 mg PO BEDTIME 04/07/21 Cinacalcet HCl 30 mg PO DAILY 04/07/21 Epoetin Frederic-Epbx [Retacrit] 4,000 unit SQ SEECOM 04/07/21 Febuxostat 40 mg PO DAILY 04/07/21 Fluticasone [Flonase 50MCG Nasal Cut Off*] 2 sprays NS BID 04/07/21 Sertraline [Zoloft*] 100 mg PO DAILY 04/07/21 Sevelamer Carbonate [Renvela*] 2 tab PO TIDWM 04/07/21 Vit B Comp C/Folic Acid/Vit D3 [Dialyvite 800 Plus D Wafer] 1 each PO DAILY 04/07/21 Ergocalciferol (Vitamin D2) [Vitamin D2] 1,250 mcg PO EVERY 7TH DAY 07/20/21 Furosemide [Lasix*] 20 mg PO SEECOM 07/20/21 Spironolactone [Aldactone*] 50 mg PO DAILY #60 tab 07/20/21 Sucroferric Oxyhydroxide [Velphoro] 500 mg PO TIDWM 07/20/21 New Medications: Spironolactone [Aldactone*] 50 mg PO DAILY #60 tab Physician Discharge Instructions: Patient presented with nausea, vomiting and abdominal pain likely colitis inflammatory in nature. Patient with history of lupus. Patient had similar episode in the past. Patient was treated with IV Flagyl and Solu-Medrol. Her condition improved. Patient without significant nausea, vomiting and abdominal pain. No diarrhea noted. Patient tolerated her diet. Patient has follow-up with GI this week. At discharge the patient will continue with prednisone 20 mg 1 pill twice daily for 7 days then 1 pill once daily for 7 days. The patient will also continue with Flagyl 500 mg 3 times a day for 7 days. It is recommended that the patient continue with lactobacillus 3 times a day. Patient has follow-up with GI on Wednesday to further evaluate. Patient may require EGD colonoscopy in the future to further address. Patient with end-stage renal disease on peritoneal dialysis. Patient with underlying chronic diastolic CHF, CAD, hypertension, anemia of chronic disease, depression and chronic thrombocytopenia. The patient was given diuretic therapy with improvement. Nephrology was consulted. Troponin was elevated likely ischemic demand related to her condition. No intervention was needed. Patient will continue with her current peritoneal dialysis treatment. Continue with nephrology recommendations. Recommend to recheck labCBC, BMP in 1 week to f ollow-up his hospitalization. Recommend follow-up with nephrology within 1 week. Patient will continue with her current medications including Renvela and Verenice-Дмитрий as directed. Patient also takes Cinacalet and Febuxostat. She may continue with medication. Patient with history of hypertension. Patient also with chronic diastolic CHF. Patient takes Lasix for his CHF. Patient takes carvedilol 25 mg 1 pill twice daily, lisinopril 40 mg 1 pill twice daily, and clonidine 0.1 mg as needed. Blood pressures have been well controlled off medication. Patient was started on Lasix. New medication includes Aldactone 50 mg daily. At discharge will recommend to hold carvedilol, lisinopril and clonidine. Patient will resume Lasix as directed. Patient will also continue with Aldactone 50 mg daily. Recommend to monitor blood pressure daily. Recommend to maintain blood pressure less than 130/80. If blood pressures remain above 140/90 she is to contact nephrology for further recommendation. Patient will also continue with the 1500 cc/day fluid restriction and low-salt diet. If her weight increases by more than 5 pounds further adjustment in her diuretic therapyLasix/Aldactone may be needed. This can be done with the help of her PCP or nephrology. Patient with history of lupus. Recommend follow-up with rheumatology in the future to further evaluate and address. Patient with depression. At discharge she will continue with her medication Zoloft as directed. Patient with anemia of chronic disease and chronic thrombocytopenia. Patient will continue with VELPHORO as directed. Patient will continue with vitamin supplementation as directed. Recommend follow-up with hematology to further monitor and address.. Diet: Renal Activity: Ad richie Followup: Nghia Jones MD [Primary Care Provider] - Time spent managing pt's care (in minutes): 55
[2021-07-20 15:49] VITALS: BP 112/71; TEMP 97.4
--- NOTE | 2021-07-20 16:17 | RAD REPORT ---
EXAM DESCRIPTION: RAD - Chest Pa And Lat (2 Views) - 07/20/2021 9:08 am CLINICAL HISTORY: pneumonia COMPARISON: Chest Single View dated 07/19/2021; Chest Single View dated 06/26/2021; Chest Single View d ated 06/23/2021; Abdomen 1 View (KUB) dated 01/13/2021 FINDINGS: Lines: Pacemaker/ICD. Lungs: There are a few ill-defined opacities in left mid lung and peripherally at the right lung base . These are similar to 07/19/2021. Pleural: No significant pleural effusions or pneumothorax. Cardiac: Mild cardiomegaly. Bones: No acute fractures. Sternotomy. Other: IMPRESSION: A few scattered ill-defined opacities which are similar to 07/19/2021 and could represen t sequela of pneumonia. No edema identified.
--- NOTE | 2021-07-20 23:31 | CON ---
Date of Consultation: 07/20/2021 Chief Complaint: End-stage renal disease, on peritoneal dialysis. History Of Present Illness: The patient is a 70-year-old woman with history of end-stage renal disea se, on peritoneal dialysis. She has history of hypertension, coronary artery disease. She came to [facility] because of nausea, diarrhea. She was found to have hypokalemia. Chest x-ray showed inte rstitial pulmonary edema. She was complained of intermittent loose watery diarrhea for past several days. She previously was seen in the emergency room and received Flagyl and steroids. Yesterday, simone da silva developed shortness of breath, abdominal cramps and came to emergency room for evaluation. She has history of end-stage renal disease, undergoing peritoneal dialysis. Workup revealed a potassium 2.8 . The patient was started on potassium replacement. The patient had CT scan done and it showed pulmo nary edema. The patient was started on diuretics. Past Medical History: Hypertension; aortic valve replacement; coronary artery disease; CABG x1 vesse l; lupus; chronic kidney disease; end stage renal disease, on peritoneal dialysis; anemia of chronic kidney; depression; breast biopsy; D and C. Social History: Denies tobacco, alcohol, or illicit drugs. Family History: Mother had ALS. Physical Examination: General: The patient is awake, alert, follows commands. HEENT: Anicteric sclerae. EOMI. Ears, Nose, Mouth, and Throat: Oral mucosa is moist. No pallor. Neck: Supple. No bruits. Lungs: Clear to auscultation bilaterally. Heart: S1, S2. No pericardial friction rub. Abdomen: Soft, benign, nontender. No rebound. No guarding. Extremities: Minimal edema. Review of Systems: Constitutional: Denies fever or chills. Eyes: Denies vision changes. Ears, Nose, Mouth, and Throat: Denies sore throat or earache. Respiratory: Denies PND or orthopnea. Gastrointestinal: Nausea, vomiting, resolved. Neurology: Denies dizziness or syncope. All other systems reviewed and all are negative. Lab Work: Sodium 140, potassium 2.8, BUN 93, creatinine 9.86, glucose 95, magnesium 1.7, AST 27, ALT 27, lipase 100, AP 157. Impression/plan: 1.Abdominal pain, nausea, vomiting, hypokalemia, end-stage renal disease, PD dialysis. The patient will have workup to rule out PD related peritonitis. 2.Hypokalemia. Continue potassium replacement. The patient was started on a short course of spiron olactone for potassium-sparing effect and diuretic effect. Lasix was added for treatment of mild vol ume overload. Despite diarrhea, the patient was found to have pulmonary edema, which was treated wit h diuretic. PD dialysis was recommended in the hospital. 3.Hypertension. Monitor blood pressure. Adjust medication as needed. 4.Anemia in chronic kidney disease. Monitor hemoglobin level. The patient does not have any eviden ce of GI bleeding. 5.Elevated troponin. The patient will have cardiac workup. FLOWER/HECTOR Voice ID: [id number] Report ID: [id number]
--- NOTE | 2021-07-21 17:01 | EKG ---
Test Date: 2021-07-19 Test Time: 13:58:48 Scallop Dredger: AARON MEASUREMENT RESULTS: Intervals: Rate: 81 [place]: 168 QRSD: 172 QT: 488 QTc: 566 [place]: P: 72 [place]: 168 QRS: -64 T: 94 INTERPRETIVE STATEMENTS: Electronic ventricular pacemaker Compared to ECG 06/24/2021 10:50:09 No significant changes Electronically Signed On 07-21-21 16:57:04 CDT by Matthew Braden
== END 2021-07-20 16:22 | disposition home or self-care (01) ==
LOC: ER 11:14 → ERHOLD 14:39 → INTOOBSV 14:39 → 2ND 18:20
PROVIDERS: ADMIT Family Medicine; ATTEND Family Medicine
DX: R11.2 Nausea with vomiting, unspecified (principal); R10.9 Unspecified abdominal pain; M32.9 Systemic lupus erythematosus, unspecified; I13.2 Hypertensive heart and chronic kidney disease with heart failure and with stage 5 chronic kidney disease, or end stage renal disease; N18.6 End stage renal disease; I50.32 Chronic diastolic (congestive) heart failure; D63.1 Anemia in chronic kidney disease; E87.6 Hypokalemia; I25.10 Atherosclerotic heart disease of native coronary artery without angina pectoris; R77.8 Other specified abnormalities of plasma proteins; D69.6 Thrombocytopenia, unspecified; F32.9 Major depressive disorder, single episode, unspecified; Z99.2 Dependence on renal dialysis; Z20.822 Contact with and (suspected) exposure to COVID-19; Z95.2 Presence of prosthetic heart valve; Z95.1 Presence of aortocoronary bypass graft; Z79.82 Long term (current) use of aspirin; Z83.3 Family history of diabetes mellitus; Z82.49 Family history of ischemic heart disease and other diseases of the circulatory system
CPT/HCPCS: 93005; 87070; 85025 ×2; 80048; 36415 ×2; 89050; 83735 ×2; 82550; 84100; 85610 ×2; 82947 ×3; 80076; 85730; 84443; 84484; 82553; 84439; 82728 ×2; 83690; 80053; 86038; 83880; 82330; 86140 ×2; 74176; 71045; 71046; 94760 ×3; 96375; 96374; 99284; U0003; J3475; J2270; J2405; J2920 ×3; J1940

== ENCOUNTER 2021-08-05 13:07 | Inpatient (IN) | payer OTHER ==
--- NOTE | 2021-08-05 14:19 | RAD REPORT ---
EXAM DESCRIPTION: RAD - Chest Single View - 08/05/2021 1:58 pm CLINICAL HISTORY: DYSPNEA COMPARISON: Two view chest July 20 TECHNIQUE: AP portable chest image was obtained 08/05/2021 1:58 pm . FINDINGS: No acute lung parenchymal process. Interstitial pattern is fractionally increased from com parison. Vasculature is similar to comparison. Cardiac silhouette is enlarged but not substantially d ifferent. Defibrillator remains in place. No measurable pleural effusion and no pneumothorax. No acute bony abnormality seen. No acute aortic findings suspected. IMPRESSION: Patient has stable cardiomegaly. No peripheral mass or consolidation. Interstitial pattern is slightly increased from comparison. Correlation is needed with any findings f or early failure or volume overload.
[2021-08-05 14:23] LABS: Absolute Lymphocytes (CBC) 0.7 K/uL (0.7-4.9); Lymphocytes % 8.4 % (15.3-44.8)
[2021-08-05 14:43] LABS: Basophils % 0.2 % (0-1.3); Hematocrit 26.8 % (36.0-45.0); MPV 10.6 fL (7.6-11.3); RBC Red Blood Cell Count 2.84 M/uL (3.86-4.86)
[2021-08-05 14:55] LABS: BUN Blood Urea Nitrogen 102 mg/dL (7-18); Bicarbonate 26 mmol/L (21-32); Glucose Level 98 mg/dL (74-106); Sodium Level 138 mmol/L (136-145)
[2021-08-05 14:57] LABS: NT PRO-BNP > 175000 pg/mL (<125)
[2021-08-05 14:59] LABS: Potassium 2.7 mmol/L (3.5-5.1)
--- NOTE | 2021-08-05 16:29 | ER ---
Nurse's Notes [facility] Name: Cheyanne Haywood Age: 70 yrs Sex: Female : 1950 Arrival Date: 08/05/2021 Time: 13:28 Bed 17 Private MD: Diagnosis: Acute pulmonary edema;Dyspnea, unspecified;End stage renal disease;Hypokalemia Presentation: 08/05 17:53 Chief complaint: Patient states: increased swelling x 2-3 days. pt states she does home kg dialysis, took 80 of lasix for it with no improvement. pt also states she was hypotensive. pt is alert and orient, NAD, family at bedside. Coronavirus screen: Vaccine status: Patient reports receiving the 2nd dose of the covid vaccine. moderna. Ebola Screen: Patient negative for fever greater than or equal to 101.5 degrees Fahrenheit, and additional compatible Ebola Virus Disease symptoms. Initial Sepsis Screen: Does the patient meet any 2 criteria? No. Patient's initial sepsis screen is negative. Does the patient have a suspected source of infection? No. Patient's initial sepsis screen is negative. Risk Assessment: Do you want to hurt yourself or someone else? Patient reports no desire to harm self or others. Onset of symptoms was August 03, 2021 at 10:00. 17:53 Method Of Arrival: EMS: [facility] kg 17:53 Acuity: NORMA 3 kg Triage Assessment: 18:06 General: Appears uncomfortable, Behavior is calm, cooperative, appropriate for age. kg Pain: Denies pain. Historical: - Allergies: 20:25 No Known Allergies; kc4 - PMHx: 20:25 Depression; Hypertension; ESRD; Lupus; PERITONEAL DIALYSIS; kc4 - Family history:: not pertinent. - Hospitalizations: : No recent hospitalization is reported. Screenin:09 Abuse screen: Denies threats or abuse. Nutritional screening: No deficits noted. kg Tuberculosis screening: No symptoms or risk factors identified. Fall Risk None identified. Assessment: 18:07 General: Appears uncomfortable, Behavior is calm, cooperative, appropriate for age. kg Pain: Denies pain. Neuro: No deficits noted. Cardiovascular: No deficits noted. Respiratory: No deficits noted. GI: PD. : Reports stage 4 Kidney failure. Derm: Skin is jaundiced, pale. Vital Signs: 17:53 BP 134 / 86; Pulse 88; Resp 18; Pulse Ox 99% ; kg 18:06 BP 130 / 79; Pulse 87; Resp 16; Temp 98.2; Pulse Ox 99% ; Weight 68.49 kg; Height 5 ft. kg 6 in. (167.64 cm); Pain 0/10; 20:38 BP 131 / 90; Pulse 85; Resp 18; Temp 98.2; Pulse Ox 99% on R/A; Pain 0/10; kc4 18:06 Body Mass Index 24.37 (68.49 kg, 167.64 cm) kg ED Course: 13:28 Patient arrived in ED. bd 13:31 Jorge Suh MD is Attending Physician. rn 13:50 Diana Pearson RN is Primary Nurse. tc5 13:58 XRAY Chest (1 view) In Process Unspecified. EDMS 16:10 initiated transfer to [facility]. pt denied due to no beds available at this bd time, per [place]. 16:28 Droian Cormier is Hospitalizing Provider. rn 17:53 Primary Nurse role handed off by Diana Pearson RN kg 17:53 Clarisse Trujillo, DEBORAH is Primary Nurse. kg 18:05 Triage completed. kg 18:09 No provider procedures requiring assistance completed. Inserted saline lock: 20 gauge kg in right antecubital area, using aseptic technique. 22g to the left hand prehospital start. Administered Medications: 17:56 Drug: Potassium Chloride 10 mEq Route: IV; Rate: calculated rate; Site: right kg antecubital; 17:56 Drug: Lasix (furosemide) 40 mg Route: IVP; Site: right antecubital; kg Outcome: 16:28 Decision to Hospitalize by Provider. rn 21:04 Patient left the ED. kc4 Signatures: Dispatcher [employer] EDMS Amanda Fountain bd Jorge Suh MD MD rn Dibbern, Lauren RN RN ld1 Clarisse Trujillo, Tammy Bloom RN, kg kc4 Diana Pearson RN RN tc5 Corrections: (The following items were deleted from the chart) 15:36 14:16 CORONAVIRUS+MR.LAB.BRZ drawn and sent. ld1 EDMS
--- NOTE | 2021-08-05 16:29 | EDPHYS ---
Physician Documentation [facility] Name: Cheyanne Haywood Age: 70 yrs Sex: Female : 1950 Arrival Date: 08/05/2021 Time: 13:28 Bed 17 Private MD: ED Physician Jorge Suh HPI: 08/05 14:42 This 70 yrs old Female presents to ER via Unassigned with complaints of rn Shortness of breath. 14:42 The patient has shortness of breath at rest, with light activity. Onset: The rn symptoms/episode began/occurred 3 day(s) ago. Duration: The symptoms are intermittent. The patient's shortness of breath is aggravated by exertion, light activity, supine position, walking, is alleviated by sitting up. Associated signs and symptoms: Pertinent positives: non-productive cough, Pertinent negatives: chest pain, fever, hemoptysis, loss of consciousness. Severity of symptoms: At their worst the symptoms were moderate in the emergency department the symptoms are unchanged. The patient has experienced similar episodes in the past. The patient has been recently seen by a physician:. Patient reports receives peritoneal dialysis, noted increased swelling and increased shortness of breath over the last few days. States spoke with Dr. Chowdhury and told to take 80 mg of Lasix as still makes urine. Family member states no urine output since taking the Lasix. Increased fatigue and weakness over the last few days as well.. Historical: - Allergies: 20:25 No Known Allergies; kc4 - PMHx: 20:25 Depression; Hypertension; ESRD; Lupus; PERITONEAL DIALYSIS; kc4 - Family history:: not pertinent. - Hospitalizations: : No recent hospitalization is reported. ROS: 14:42 Constitutional: Negative for fever, chills, and weight loss, Eyes: Negative for injury, rn pain, redness, and discharge, Neck: Negative for injury, pain, and swelling, Cardiovascular: Negative for chest pain, palpitations, positive for edema Respiratory: Negative for wheezing, and pleuritic chest pain, Abdomen/GI: Negative for abdominal pain, nausea, vomiting, diarrhea, and constipation, Back: Negative for injury and pain, : Negative for injury, bleeding, discharge, and swelling, MS/Extremity: Negative for injury and deformity, Skin: Negative for injury, rash, and discoloration, Neuro: Negative for headache, numbness, tingling, and seizure. 14:42 All other systems are negative. Exam: 14:24 ECG was reviewed by the Attending Physician. rn 14:42 Constitutional: This is a well developed, well nourished patient who is awake, alert, rn and in no acute distress. Head/Face: Normocephalic, atraumatic. Eyes: Periorbital areas with no swelling, redness, or edema. ENT: No stridor Cardiovascular: Regular rate and rhythm. No pulse deficits. Respiratory: Mild tachypnea, no retractions Abdomen/GI: Soft, nontender Skin: Warm, dry MS/ Extremity: Pulses equal, no cyanosis. Neuro: Awake and alert, GCS 15. Motor strength 4/5 in all extremities. Sensory grossly intact. Vital Signs: 17:53 BP 134 / 86; Pulse 88; Resp 18; Pulse Ox 99% ; kg 18:06 BP 130 / 79; Pulse 87; Resp 16; Temp 98.2; Pulse Ox 99% ; Weight 68.49 kg; Height 5 ft. kg 6 in. (167.64 cm); Pain 0/10; 20:38 BP 131 / 90; Pulse 85; Resp 18; Temp 98.2; Pulse Ox 99% on R/A; Pain 0/10; kc4 18:06 Body Mass Index 24.37 (68.49 kg, 167.64 cm) kg MDM: 13:31 Patient medically screened. rn 16:26 Differential diagnosis: Bronchitis CHF exacerbation, pneumonia, pulmonary edema, ESRD. rn Data reviewed: vital signs, nurses notes, lab test result(s), radiologic studies, plain films, and as a result, I will admit patient. Data interpreted: Pulse oximetry: on room air is 100 %. Interpretation: normal. Test interpretation: by ED physician or midlevel provider: plain radiologic studies, X-ray with mild bilateral interstitial prominence consistent with pulmonary edema. Counseling: I had a detailed discussion with the patient and/or guardian regarding: the historical points, exam findings, and any diagnostic results supporting the discharge/admit diagnosis, lab results, radiology results, the need for further work-up and treatment in the hospital. Response to treatment: the patient's symptoms have mildly improved after treatment, and as a result, I will admit patient. Admission orders: after a detailed discussion of the patient's condition and case, the admit orders are written by me. ED course: Patient able to ambulate to bathroom to urinate on her own power. Attempted transfer to [place] for peritoneal dialysis capabilities, they are at saturation and cannot accommodate transfer. Patient and family state that they can do peritoneal dialysis themselves here so will admit for further diuresis and hypokalemia.. 08/05 13:42 Order name: CBC with Diff rn 08/05 13:42 Order name: Basic Metabolic Panel; Complete Time: 15:20 rn 08/05 13:42 Order name: BNP; Complete Time: 15:20 rn 08/05 16:29 Order name: SARS-COV-2 RT PCR EDAR 08/05 18:04 Order name: Basic Metabolic Panel EDAR 08/05 13:42 Order name: XRAY Chest (1 view); Complete Time: 14:21 rn 08/05 18:04 Order name: Basic Metabolic Panel EDAR 08/05 18:04 Order name: Protime (+INR) EDAR 08/05 18:04 Order name: Protime (+INR) EDAR 08/05 18:05 Order name: Urinalysis EDAR 08/05 18:05 Order name: CBC with Automated Diff EDMS 08/05 18:05 Order name: CBC with Automated Diff EDMS 08/05 20:22 Order name: CBC Smear Scan EDAR 08/05 13:42 Order name: IV Start; Complete Time: 14:30 rn 08/05 13:42 Order name: EKG; Complete Time: 13:42 rn 08/05 13:42 Order name: EKG - Nurse/Tech; Complete Time: 14:16 rn 08/05 18:04 Order name: Renal EDMS EC:24 Rate is 91 beats/min. Rhythm is regular. QRS interval is prolonged at 176 msec. QT rn interval is normal. No Q waves. T waves are Normal. No ST changes noted. Clinical impression: pacemaker. Interpreted by me. Reviewed by me. Administered Medications: 17:56 Drug: Potassium Chloride 10 mEq Route: IV; Rate: calculated rate; Site: right kg antecubital; 17:56 Drug: Lasix (furosemide) 40 mg Route: IVP; Site: right antecubital; kg Disposition Summary: 08/05/21 16:28 Hospitalization Ordered Hospitalization Status: Inpatient Admission rn Provider: Baidoo, Dorian rn Location: Telemetry/MedSurg (Inpatient) rn Condition: Stable rn Problem: an ongoing problem rn Symptoms: have improved rn Bed/Room Type: Standard rn Room Assignment: 219(08/05/21 20:07) Diagnosis - Acute pulmonary edema rn - Dyspnea, unspecified rn - End stage renal disease rn - Hypokalemia rn Forms: - Medication Reconciliation Form rn - SBAR form rn Signatures: Dispatcher [employer] EDAR Jorge Suh MD MD rn Garcia, Cindy, RN RN cg Graham, Kristen, RN RN kg Chuman, Kourtney kc4 Corrections: (The following items were deleted from the chart) 15:36 13:42 CORONAVIRUS+MR.LAB.BRZ ordered. [facility] EDAR 20:07 16:28 rn cg
[2021-08-05] MEDS ORDERED: LABETALOL 20 MG/4ML SYRINGE IV PRN (17:58)
[2021-08-05] MEDS ORDERED: FUROSEMIDE 40 MG/4 ML VIAL ONE (18:03)
[2021-08-05] MEDS ORDERED: ACETAMINOPHEN 500 MG TAB PO PRN (18:03)
[2021-08-05] MEDS ORDERED: ONDANSETRON 4 MG/2 ML VIAL IV PRN (18:03)
[2021-08-05] MEDS ORDERED: KCL 20 MEQ/100 mL IVPB 20 MEQ/100 ML BAG IV ONE (18:04)
[2021-08-05] MEDS ORDERED: HYDROCODONE/APAP 5/325 MG TAB PO PRN (18:04)
--- NOTE | 2021-08-05 18:10 | P.HP ---
Certification for Inpatient Patient admitted to: Inpatient With expected LOS: >2 Midnights Patient will require the following post-hospital care: None Practitioner: I am a practitioner with admitting privileges, knowledge of patient current condition, hospital course, and medical plan of care. Services: Services provided to patient in accordance with Admission requirements found in Title 42 Section 412.3 of the Code of Federal Regulations <Georgette Leon - Last Filed: 08/06/21 09:47> Patient History Date of Service: 08/06/21 Reason for admission: SOB History of Present Illness: Patient is a 70-year-old female with a past medical history significant for depression, hypertension, ESRD, lupus who presents with complaint of shortness of breath that has been ongoing for the past 1 week. Patient reports associated signs and symptoms of fatigue, cough and loss of appetite.. Patient reported that she called block press operator and was instructed to take Lasix 80 mg. Patient did not express any urine output. Patient denies any other signs or symptoms. Symptoms are aggravated or relieved by nothing. Patient decided to present to the hospital due to worsening symptoms. Home medications list reviewed: No - Past Medical/Surgical History Diabetic: No -: Hypertension -: Aortic valve replacement -: Coronary artery disease, CABG x1 vessel -: Lupus -: Chronic renal disease -: Anemia of chronic disease -: Depression -: Aortic valve replacement aug 2016 -: CABG x1 vessel -: Breast biopsies -: D&C -: pacemaker defibrillator 2018 Psychosocial/ Personal History: The patient is . She has children. She does not work. - Family History Mother -: Other (see notes) Notes: ALS Father -: Heart disease, Diabetes - Social History Smoking Status: Former smoker Alcohol use: No CD- Drugs: No Caffeine use: No Place of Residence: Home <Georgette Leon - Last Filed: 08/06/21 09:47> Date of Service: 08/05/21 <Connie Cervantes - Last Filed: 08/09/21 00:58> Allergies No Known Drug Allergies Allergy (Verified 07/19/21 19:55) Unknown Home Medications: Aspirin 1 tab PO DAILY 08/06/21 Atorvastatin Calcium 20 mg PO DAILY 08/06/21 Carvedilol [Coreg] 0.1 mg PO DAILY PRN 08/06/21 Cinacalcet HCl 30 mg PO DAILY 08/06/21 Epoetin [Retacrit] 0.4 ml SQ SEECOM 08/06/21 Ergocalciferol (Vitamin D2) [Drisdol] 1 tab PO SEECOM 08/06/21 Febuxostat 40 mg PO DAILY 08/06/21 Fluticasone Propionate [Flonase Allergy Relief] 2 sprays CARLOTTA BID 08/06/21 Folic Acid/Vit B Complex and C [Dialyvite 800 Chewable Wafer] 1 tab PO DAILY 08/06/21 Furosemide 20 mg PO SEECOM 08/06/21 Heparin [Heparin Sodium*] 5 ml SQ SEECOM 08/06/21 Lisinopril [Zestril] 40 mg PO BID PRN 08/06/21 Sertraline [Zoloft*] 100 mg PO DAILY 08/06/21 Sevelamer Carbonate [Renvela] 2 tab PO TID 08/06/21 Sucroferric Oxyhydroxide [Velphoro] 500 mg PO TID 08/06/21 cloNIDine HCL [Clonidine HCl] 0.1 mg PO DAILY PRN 08/06/21 Review of Systems General: Weakness, Malaise Eyes: Unremarkable ENT: Unremarkable Respiratory: Shortness of Breath, SOB with Excertion Cardiovascular: Unremarkable Gastrointestinal: Unremarkable Genitourinary: Unremarkable Musculoskeletal: Unremarkable Integumentary: Unremarkable Neurological: Unremarkable <Georgette Leon - Last Filed: 08/06/21 09:47> Physical Examination - Physical Exam General: Alert, Oriented x3 HEENT: Atraumatic, PERRLA, Mucous membr. moist/pink, EOMI, Sclerae nonicteric Neck: Supple, 2+ carotid pulse no bruit, No LAD, Without JVD or thyroid abnormality Respiratory: Clear to auscultation bilaterally, Normal air movement Cardiovascular: Regular rate/rhythm, Normal S1 S2 Capillary refill: <2 Seconds Gastrointestinal: Normal bowel sounds, No tenderness Musculoskeletal: Swelling Integumentary: No rashes Neurological: Normal gait, Normal speech, Normal tone, Normal affect Lymphatics: No axilla or inguinal lymphadenopathy External genitalia: Deferred Rectal: Deferred - Studies Laboratory Data (last 24 hrs) 08/05/21 14:05: Sodium 138, Potassium 2.7 L*, BUN 102 H, Creatinine 9.60 H*, Glucose 98 08/05/21 14:05: WBC 7.80, Hgb 8.9 L, Hct 26.8 L, Plt Count 39 L* <Georgette Leon E - Last Filed: 08/06/21 09:47> Assessment and Plan - Plan --Volume overload. Patient on peritoneal dialysis. Nephrology consulted. We will await further recommendations. --Hypertension. Stable. Continue home medications. --Depression. Continue home medication. --Lupus. We will manage pain with current pain medication regimen. --Thrombocytopenia. Unclear etiology. Continue supportive care. --Anemia of chronic disease. H&H stable. We will continue to monitor hemoglobin and transfuse if less than 7.0. --Hypokalemia. Replete as needed. --DVT prophylaxis with SCDs. I have had discussion about advanced directives with the patient during this hospital admission. Addressed code status and /or goals of care. Spent more than 15 minutes. Case discussed withpatient and nurse. The following document was completed using voice recognition software. This can produce fan installer errors that can at times significantly distort words and phrases. Please interpret any aspect of the note that is nonsensical in light of this fact. Discharge Plan: Home Plan to discharge in: 48 Hours - Advance Directives Does patient have a Living Will: No Does patient have a Durable POA for Healthcare: No - Code Status/Comfort Care Code Status Assessed: Yes Code Status: Full Code Physician Review: Patient Assessed, Agree with Above Assessment and Plan Critical Care: No <Georgette Leon E - Last Filed: 08/06/21 09:47> - Problems (Diagnosis) (1) Pulmonary edema Current Visit: No Status: Acute (2) Cardiomyopathy Current Visit: Yes Status: Acute (3) ESRD on peritoneal dialysis Current Visit: No Status: Acute (4) Coronary artery disease Onset Date: 11/02/16 Current Visit: No Status: Chronic Qualifiers: (5) H/O aortic valve replacement Current Visit: No Status: Chronic (6) Hypertension Onset Date: 11/02/16 Current Visit: No Status: Chronic Qualifiers: Hypertension type: primary hypertension Qualified Code(s): I10 - Essential (primary) hypertension (7) Lupus Onset Date: 11/02/16 Current Visit: No Status: Chronic Qualifiers: Systemic lupus erythematosus type: unspecified Systemic lupus erythematosus organ involvement: unspecified Qualified Code(s): M32.9 - Systemic lupus erythematosus, unspecified <Connie Cervantesl - Last Filed: 08/09/21 00:58> Date of Service: 08/05/21 Subjective Agree with plan of care as mentioned above. Continue with diuresing patient Review of Systems 10-point ROS is otherwise unremarkable Physical Examination - Vital Signs Reviewed - Physical Exam General: Alert, In no apparent distress, Oriented x3 Respiratory: Diminished, Crackles/rales Cardiovascular: Regular rate/rhythm, Normal S1 S2, No murmurs Gastrointestinal: Normal bowel sounds, Soft and benign, Non-distended, No tenderness, No rebound, No guarding Neurological: Other (Patient with generalized weakness; cranial nerves are intact) - Studies Medications List Reviewed: Yes Assessment & Plan - Problems (Diagnosis) (1) Pulmonary edema Current Visit: No Status: Acute (2) Cardiomyopathy Current Visit: Yes Status: Acute (3) ESRD on peritoneal dialysis Current Visit: No Status: Acute (4) Coronary artery disease Onset Date: 11/02/16 Current Visit: No Status: Chronic Qualifiers: (5) H/O aortic valve replacement Current Visit: No Status: Chronic (6) Hypertension Onset Date: 11/02/16 Current Visit: No Status: Chronic Qualifiers: Hypertension type: primary hypertension Qualified Code(s): I10 - Essential (primary) hypertension (7) Lupus Onset Date: 11/02/16 Current Visit: No Status: Chronic Qualifiers: Systemic lupus erythematosus type: unspecified Systemic lupus erythematosus organ involvement: unspecified Qualified Code(s): M32.9 - Systemic lupus erythematosus, unspecified - Plan 1. Echocardiogram w/ cardiomyopathy; ejection fraction of 25-30% 2. Low-dose MJ-inhibitor; lisinopril 2.5 mg daily 3. start carvedilol-start 6.25 p.o. b.i.d. 4. Cardiology consultation appreciated; nephrology consultation appreciated 5. Continue with cardiac meds 6. Monitor volume status closely 7. Chest x-ray with no significant pulmonary edema 8. Strict blood sugar control 9. Physical therapy evaluation <Elena Cervantesjones Capps - Last Filed: 08/09/21 00:58>
[2021-08-05 20:22] LABS: Blood Morphology Comment NOT SEEN (NOT SEEN); Platelet Estimate DECR; White Blood Cell Scan OK (OK)
[2021-08-05] MEDS: FLUTICASONE 50MCG NASAL SPRAY NAS SCH (21:00)
[2021-08-05] MEDS: predniSONE 20 MG TAB PO SCH (21:24)
[2021-08-05] MEDS: LACTOBACILLUS/ACIDOPHILUS TAB PO SCH (21:25)
[2021-08-05] MEDS: ATORVASTATIN 20 MG TAB PO SCH (21:25)
[2021-08-06 05:38] LABS: Absolute Lymphocytes (CBC) 0.3 K/uL (0.7-4.9); Basophils % 0.2 % (0-1.3); Hematocrit 25.3 % (36.0-45.0); Lymphocytes % 5.7 % (15.3-44.8); MPV 10.1 fL (7.6-11.3)
[2021-08-06 05:40] LABS: Protime INR 1.08
[2021-08-06 06:12] LABS: Albumin 2.2 g/dL (3.4-5.0); Phosphorus 5.3 mg/dL (2.5-4.9)
[2021-08-06 06:26] LABS: Potassium 2.7 mmol/L (3.5-5.1)
[2021-08-06] MEDS ORDERED: POTASSIUM CL SA 10 MEQ TAB PO ONE ×2 (07:49)
[2021-08-06] MEDS: Sucroferric Oxyhydroxide [Velphoro] 500 MG Tab.Chew PO SCH ×3 (08:00→17:00)
[2021-08-06] MEDS: SEVELAMER CARBONATE 800 MG TABLET PO SCH ×3 (08:23→17:48)
[2021-08-06] MEDS: SERTRALINE HCL 100 MG TAB PO SCH (08:23)
[2021-08-06] MEDS: predniSONE 20 MG TAB PO SCH ×2 (08:23→20:18)
[2021-08-06] MEDS: LACTOBACILLUS/ACIDOPHILUS TAB PO SCH ×3 (08:23→20:18)
[2021-08-06] MEDS: FLUTICASONE 50MCG NASAL SPRAY NAS SCH ×2 (09:00→20:17)
[2021-08-06] MEDS: FOLIC ACID PO SCH (09:00)
[2021-08-06] MEDS: VIT B COMP C PO SCH (09:00)
[2021-08-06] MEDS ORDERED: FUROSEMIDE 20 MG TABLET PO SCH (09:00)
[2021-08-06] MEDS: HOME MED 1 EA UNK (Febuxostat [Febuxostat] 40 MG Tablet) PO SCH (09:00)
[2021-08-06] MEDS ORDERED: ERGOCALCIFEROL 1250 MCG PO SCH (09:00)
[2021-08-06] MEDS: VIT D3 PO SCH (09:00)
[2021-08-06] MEDS: POTASSIUM 25 MEQ EFFERV TAB PO SCH (11:45)
[2021-08-06] MEDS: CINACALCET HCL 30 MG TAB PO SCH (12:19)
[2021-08-06] MEDS ORDERED: EPOETIN ALFA 10,000 UNIT/ML VIAL SQ ONE (13:00)
--- NOTE | 2021-08-06 13:44 | ECHO ---
HEIGHT: 5 ft 6 in WEIGHT: 150 lb 15.914 oz DATE OF STUDY: 08/06/[address]: Angie Cerda MD 2-DIMENSIONAL: YES M.MODE: YES DOPPLER: YES COLOR FLOW: YES TDS: NO PORTABLE: NO DEFINITY: NO BUBBLE STUDY: NO DIAGNOSIS: CONGESTIVE HEART FAILURE CARDIAC HISTORY: CATHERIZATION: NO SURGERY: YES PROSTHETIC VALVE: NO PACEMAKER: YES MEASUREMENTS (cm) DIASTOLIC (NORMALS) SYSTOLIC (NORMALS) IVSd 1.1 (0.6-1.2) LA Diam 3.0 (1.9-4.0) LVEF 25-30% LVIDd 4.7 (3.5-5.7) LVIDs 3.7 (2.0-3.5) %FS % LVPWd 1.2 (0.6-1.2) Ao Diam 2.8 (2.0-3.7) 2 DIMENSIONAL ASSESSMENT: RIGHT ATRIUM: NORMAL LEFT ATRIUM: NORMAL RIGHT VENTRICLE: NORMAL LEFT VENTRICLE: NORMAL TRICUSPID VALVE: NORMAL MITRAL VALVE: NORMAL PULMONIC VALVE: NORMAL AORTIC VALVE: NORMAL PERICARDIAL EFFUSION: NONE AORTIC ROOT: NORMAL LEFT VENTRICULAR WALL MOTION: SEVERE GLOBAL HYPOKINESIS. DOPPLER/COLOR FLOW: MILD TRICUSPID REGURGITATION. MILD PULMONARY HYPERTENSION. COMMENTS: SEVERE GLOBAL HYPOKINESIS. LEFT VENTRICULAR EJECTION FRACTION 25-30%. MILD TRICUSPID REGURGITATION. MILD PULMONARY HYPERTENSION. TECHNOLOGIST: Dakota DAWN
--- NOTE | 2021-08-06 16:28 | CON ---
Date of Consultation: 08/06/2021 Reason For Consultation: Anasarca, renal failure. History Of Present Illness: This is a 70-year-old female with significant past medical history of end-stage renal disease, used to be on hemodialysis, switched to PD, hypertension, lupus nephritis, CAD status post CABG, status post ICD, aortic valve replacement, the patient came to the hospital as the patient over the last few days started having anasarca. The patient visited her developer analyst. According to her, they informed her that she has questionable of fluid around her heart. The patient supposed to follow up with developer analyst tomorrow. The patient because of anasarca reported to the emergency room with shortness of breath, found to have severe elevation in BNP with anasarca. The patient over the night was started back on her PD using the green bag. The patient ultrafiltrated almost 1 L. Currently still on nasal cannula. Past Medical History: Includes; 1. End-stage renal disease, on PD. 2. Coronary artery disease status post CABG, status post ICD. 3. Aortic valve stenosis status post replacement. 4. Hyperlipidemia. Past Surgical History: Includes; 1. PermCath placement and removal. 2. CABG. 3. Aortic valve replacement. 4. Breast biopsy. 5. . Family History: Positive for hypertension. Social History: Denied smoking, denied drinking, denied drug abuse. Allergies: NO KNOWN DRUGS ALLERGY. Home Medications: Include; 1. Prednisone. 2. Metronidazole. 3. Renvela. 4. Zoloft. 5. Lasix 20. 6. Ergocalciferol. 7. Sensipar. 8. Atorvastatin. 9. Aspirin. Current Medications: In the hospital include; 1. Atorvastatin. 2. Zofran. 3. Pantoprazole. 4. Zoloft. 5. Renvela. 6. Spironolactone. Review of Systems: Head and Neck: No red eye. No ear pain. GI: Still has diarrhea. : No polyuria. No dysuria. No hematuria. Extrusion Press Operator: No vaginal discharge. Respiratory: Has shortness of breath. Has orthopnea. Cardiovascular: Has orthopnea and leg swelling. Endocrine: No polydipsia. Skin: No rash. Neuro: Generalized weakness. Musculoskeletal: Has fatigue. Physical Examination: Vital Signs: Blood pressure of 129/76, pulse of 75, afebrile. Chest: Crackles bilateral. Heart: S1, S2. Systolic murmur. Abdomen: Soft, nontender. Extremities: +2 edema. Neuro: Alert. No focality. Laboratory Data: WBC 6, H and H 8.7/25.3. Sodium 138, potassium 2.7, bicarb 25, BUN 94, creatinine 9.2, calcium 6.9, magnesium 2, phosphorus 5.3. BNP more than 175,000. Assessment And Plan: 1. End-stage renal disease with over volume. I am going to go ahead and change her prescription. We will increase one and decrease the time for the patient and we will follow up the patient. We will use 2.5 concentration to establish better ultrafiltration. I am going to go ahead and increase her Lasix to 80 b.i.d. and we will start the patient on spironolactone. We will consult Cardiology. 2. Hypokalemia. We will supplement and we will add spironolactone. 3. Anasarca secondary to renal failure/cardiorenal. Hypothyroidism has been ruled out. I am going to go ahead and send for protein creatinine. We will increase Lasix. We will consult Cardiology and we will follow up the patient and we will adjust PD prescription. 4. Hypertension. We will utilize blood pressure for more diuresis. 5. Secondary hyperparathyroidism. We will resume Renvela. 6. Anemia of chronic kidney disease. We will resume Retacrit. 7. Congestive heart failure with exacerbation as above. We will follow up with Cardiology. Time spent examining the patient [id number] placing order discussing with the patient reviewing data discussing the case with all of our subspecialty including hospitalist 65 minutes ZULAY Voice ID: [id number] Report ID: [id number] MIGUEL
[2021-08-06] MEDS: FUROSEMIDE 40 MG/4 ML VIAL IV SCH (17:48)
[2021-08-06] MEDS: ATORVASTATIN 20 MG TAB PO SCH (20:18)
[2021-08-07 06:35] LABS: Albumin 2.1 g/dL (3.4-5.0); Phosphorus 4.7 mg/dL (2.5-4.9); Thyroid Stimulating Hormone 0.999 uIU/mL (0.360-3.740)
[2021-08-07] MEDS: Sucroferric Oxyhydroxide [Velphoro] 500 MG Tab.Chew PO SCH ×3 (08:00→16:20)
[2021-08-07] MEDS: LACTOBACILLUS/ACIDOPHILUS TAB PO SCH ×3 (08:34→21:18)
[2021-08-07] MEDS: SPIRONOLACTONE 25 MG TABLET PO SCH (08:34)
[2021-08-07] MEDS: SERTRALINE HCL 100 MG TAB PO SCH (08:34)
[2021-08-07] MEDS: FUROSEMIDE 40 MG/4 ML VIAL IV SCH ×2 (08:34→16:19)
[2021-08-07] MEDS: POTASSIUM 25 MEQ EFFERV TAB PO SCH (08:35)
[2021-08-07] MEDS: SEVELAMER CARBONATE 800 MG TABLET PO SCH ×3 (08:35→16:20)
[2021-08-07] MEDS: CINACALCET HCL 30 MG TAB PO SCH (08:35)
[2021-08-07] MEDS: FLUTICASONE 50MCG NASAL SPRAY NAS SCH ×2 (08:36→21:00)
[2021-08-07] MEDS: FOLIC ACID PO SCH (08:38)
[2021-08-07] MEDS: VIT B COMP C PO SCH (08:38)
[2021-08-07] MEDS: HOME MED 1 EA UNK (Febuxostat [Febuxostat] 40 MG Tablet) PO SCH (08:38)
[2021-08-07] MEDS: VIT D3 PO SCH (08:38)
[2021-08-07] MEDS: predniSONE 20 MG TAB PO SCH ×2 (08:40→21:19)
[2021-08-07] MEDS ORDERED: POTASSIUM 25 MEQ EFFERV TAB PO ONE (10:18)
--- NOTE | 2021-08-07 14:25 | PN ---
Date of Progress Note: 08/07/2021 Subjective: The patient was admitted with over volume. The patient was done yesterday PD with higher concentration. The patient ultrafiltrated well. The patient on room air, but still has puffy face. The patient lost 4 pounds from yesterday. Physical Examination: Vital Signs: Blood pressure 125/74, afebrile. The patient dropped weight from 150 to 146. Chest: Clear to auscultation. Heart: S1, S2. Systolic murmur. Abdomen: Soft, nontender. Extremities: Trace edema. More edema on the upper extremity and face. Neuro: Alert, oriented x3. No focal. Laboratory Data: H and H 8.7/25.3. Sodium 139, potassium 3, bicarb 27, BUN 88, creatinine 8.8, calcium 7.2, phosphorus 4.7, albumin 2.1. Corrected calcium is 8.8. Current Medications: The patient on include Epogen, atorvastatin, spironolactone, Zoloft, Lasix 80 b.i.d., Zofran, prednisone 20 b.i.d., Sensipar, KCl. Assessment And Plan: 1. End-stage renal disease with over volume. I am going to go ahead and continue current PD regimen. As the patient lost 4 pounds from yesterday, we will try to establish better volume control, continue 2.5 concentration. We will decrease the dwell time further to achieve better ultrafiltration clearance as acceptable. 2. Hypertension. We will utilize blood pressure for more ultrafiltration. 3. Anasarca, over volume secondary to congestive heart failure, ejection fraction of 30% as by echo. We will follow up with Cardiology. We will try to establish better volume control with ultrafiltration. 4. Secondary hyperparathyroidism. Continue calcitriol. We will monitor the patient. 5. Hypocalcemia, resolved. 6. Hypokalemia. We will supplement. Time spent examining the patient [id number] placing order discussing with the patient reviewing data discussing the case with all of our subspecialty including hospitalist 35 minutes ZULAY Voice ID: [id number] Report ID: [id number] MIGUEL
--- NOTE | 2021-08-07 16:25 | CON ---
Date of Consultation: 08/07/2021 Reason For Consultation: Shortness of breath. History Of Present Illness: This is a 70-year-old female with history of end-stage renal disease, on peritoneal dialysis, lupus, dyslipidemia, coronary artery disease status post one-vessel bypass, CHF , aortic valve stenosis status post aortic valve replacement. Presented with worsening shortness of breath, orthopnea, and lower extremity edema. Found to be in acute heart failure. After proper dial ysis, she feels better now and no significant symptoms. Past Medical History: As outlined above in HPI. Medications: Refer to reconciliation sheet for detailed list. Allergies: NO KNOWN DRUG ALLERGIES. Family History: No premature coronary artery disease or cancer. Social History: She does not smoke or drink. Does not use any drugs. Past Surgical History: Coronary artery bypass surgery, pacemaker defibrillator. Review of Systems: All systems reviewed are negative except for what mentioned in the HPI. Physical Examination: Vital Signs: Temperature is 96.6, pulse is 90, breathing at 16, blood pressure is 103/69, saturating 100%. General: Pleasant elderly female, in no apparent distress. Head and Neck: Pupils are equal, reactive to light. Intact eye movements. Mild JVD. No cervical l ymphadenopathy. Neck: Supple. Thyroid is not enlarged. Lungs: Faint crackles in bases. No accessory muscle use or muscle retraction. Heart: Regular. No extra sounds. Abdomen: Soft, nontender. Bowel sounds positive. No organomegaly. No masses or hernia. No rigidi ty or rebound. Extremities: No clubbing, cyanosis. Intact pulses. Mild edema. Skin: No rash noted. Neurologic: Alert, awake, oriented x3. No acute focal deficits appreciated. Investigations: Labs were reviewed. Assessment And Recommendations: 1.Acute on chronic systolic congestive heart failure exacerbation. EF is low at 25% to 30%. She thao d a recent heart catheterization done by myself, which showed patent WYATT to LAD and the rest of her coronary arteries are okay. At this point, I recommend close monitoring of her fluid status and cons ultation with Nephrology to allow more fluid removal to have a better quality of life and also to fol low the guideline directed medical therapy for heart failure. Try to reduce Coreg 3.125 mg twice a d ay and adjust further if needed. Also, she might benefit from low-dose MJ inhibitor given that she is on dialysis. Her potassium will get filtered through that. 2.History of coronary artery disease. Recent catheterization showed patent WYATT and coronary artery disease in the other arteries. SR/MODL Voice ID: [id number] Report ID: [id number]
[2021-08-07] MEDS: ATORVASTATIN 20 MG TAB PO SCH (21:18)
[2021-08-08 05:14] LABS: Albumin 2.3 g/dL (3.4-5.0); Potassium 3.4 mmol/L (3.5-5.1)
--- NOTE | 2021-08-08 05:25 | P.PN ---
Subjective Date of Service: 08/08/21 Chief Complaint: SOB Subjective: Other (she complains of persistent edema on left upper extremity.) Physical Examination - Vital Signs Temperature: 97.6 F Blood Pressure: 111/61 Pulse: 86 Respirations: 18 Pulse Ox (%): 100 - Physical Exam General: In no apparent distress HEENT: Atraumatic, Normocephalic Neck: Supple Respiratory: Other (symmetric chest expansion) Cardiovascular: No rubs, No murmurs Gastrointestinal: Soft and benign Neurological: Normal tone Urinary: Other (no bladder distention) Assessment And Plan - Plan 1. End-stage renal disease with over volume. No LE edema. Cont PD same Rx. Still +urine output. Cont furosemide 2. LUE edema. Her daughter reports pt having a 2 wk onset of facial/neck edema mostly on L side plus LUE edema. F/u LUE doppler US; if neg, will need contrast chest CT next to assess for proximal/central vein DVT or stenosis, if pt & daughter accepts risk of receiving IV contrast & possibly losing her residual urine output. If they would like to hold off on contrast CT, plan to manage LUE edema conservatively w/ elevation & wearing a compression sleeve. 3. Hypertension. continue current regimen. 4. Anemia. Monitor H&H. 5. Hypokalemia. Received KCl po repletion today. 6. Hypocalcemia. Mild. Corrected serum calcium 8.5. Monitor. 7. HypoPO4. Mild. Monitor. 8. Secondary hyperparathyroidism. Continue calcitriol. We will monitor the patient. Physician Review: Patient Assessed, Agree with Above Assessment and Plan
[2021-08-08] MEDS ORDERED: POTASSIUM CL SA 10 MEQ TAB PO ONE ×2 (08:00→11:50)
[2021-08-08] MEDS: SPIRONOLACTONE 25 MG TABLET PO SCH (09:21)
[2021-08-08] MEDS: predniSONE 20 MG TAB PO SCH ×2 (09:21→19:51)
[2021-08-08] MEDS: CINACALCET HCL 30 MG TAB PO SCH (09:21)
[2021-08-08] MEDS: SEVELAMER CARBONATE 800 MG TABLET PO SCH ×3 (09:21→18:36)
[2021-08-08] MEDS: SERTRALINE HCL 100 MG TAB PO SCH (09:21)
[2021-08-08] MEDS: LACTOBACILLUS/ACIDOPHILUS TAB PO SCH ×3 (09:22→19:51)
[2021-08-08] MEDS: POTASSIUM 25 MEQ EFFERV TAB PO SCH (09:22)
[2021-08-08] MEDS: FUROSEMIDE 40 MG/4 ML VIAL IV SCH (09:22)
[2021-08-08] MEDS: FLUTICASONE 50MCG NASAL SPRAY NAS SCH ×2 (09:26→19:52)
[2021-08-08] MEDS: Sucroferric Oxyhydroxide [Velphoro] 500 MG Tab.Chew PO SCH ×3 (09:27→17:00)
[2021-08-08] MEDS: VIT B COMP C PO SCH (09:27)
[2021-08-08] MEDS: HOME MED 1 EA UNK (Febuxostat [Febuxostat] 40 MG Tablet) PO SCH (09:27)
[2021-08-08] MEDS: FOLIC ACID PO SCH (09:27)
[2021-08-08] MEDS: VIT D3 PO SCH (09:27)
--- NOTE | 2021-08-08 13:44 | RAD REPORT ---
EXAM DESCRIPTION: US - UPPER EXTREMITY VENOUS UNILATE - 08/08/2021 1:07 pm CLINICAL HISTORY: Left face upper extremity edema COMPARISON: None. TECHNIQUE: Real-time sonographic evaluation of the left upper extremity deep venous system was perfo rmed. FINDINGS: Normal compressibility, flow augmentation, phasic flow and spontaneous flow is identified in the left upper extremity deep venous system. No intraluminal filling defects seen. IMPRESSION: No DVT in the left upper extremity.
--- NOTE | 2021-08-08 16:42 | PN ---
Date of Progress Note: 08/08/2021 Subjective: Seen by bedside. She is feeling better. Review of Systems: No chest pain. She has shortness of breath on exertion. No nausea, vomiting, diarrhea. No abdomina l pain. No dysuria, polyuria, urinary urgency. All other systems reviewed and negative. Objective: Vital Signs: Temperature is 97.7, pulse is 99, breathing at 18, blood pressure is 120/81 , satting 100%. General: Pleasant elderly female, in no apparent distress. Head and Neck: Pupils are equal, reactive to light. Intact eye movements. No JVD. No cervical lym phadenopathy. Neck: Supple. Thyroid is not enlarged. Lungs: Clear to auscultation. No accessory muscle use or muscle retraction. Heart: Regular rate and rhythm with no extra sounds. Abdomen: Soft, nontender. Bowel sounds positive. No organomegaly. No masses or hernia. No rigidi ty or rebound. Extremities: No edema, clubbing, or cyanosis. Intact pulses. Skin: No rash noted. Neurologic: Alert, awake, oriented x3. No acute focal deficits appreciated. Investigations: Labs were reviewed. Assessment And Recommendation: Chronic systolic heart failure. Please start low-dose Coreg 3.125 mg twice a day and if able to tolerate in terms of blood pressure to titrate this up and introduce a lo w dose of 2.5 mg of lisinopril and we will plan to optimize the heart failure medications gradually o n outpatient basis. I will sign off from this case and I will follow this patient in an outpatient setting. /HECTOR Voice ID: [id number] Report ID: [id number]
[2021-08-08] MEDS: carvediloL 6.25 MG TAB PO SCH (18:36)
[2021-08-08] MEDS: ATORVASTATIN 20 MG TAB PO SCH (19:51)
--- NOTE | 2021-08-09 00:45 | P.PN ---
Subjective Date of Service: 08/06/21 Patient still with volume overloaded. Nephrology is adjusting peritoneal dialysis. Echocardiogram pending. Continue monitoring volume status closely. Review of Systems 10-point ROS is otherwise unremarkable Physical Examination - Vital Signs Temperature: 97.6 F Blood Pressure: 111/61 Pulse: 86 Respirations: 18 Pulse Ox (%): 100 - Physical Exam General: Alert, In no apparent distress, Oriented x3 Respiratory: Diminished, Crackles/rales Cardiovascular: Regular rate/rhythm, Normal S1 S2, No murmurs Gastrointestinal: Normal bowel sounds, Soft and benign, Non-distended, No tenderness, No rebound, No guarding Musculoskeletal: Swelling Integumentary: Other Neurological: Other (Patient with generalized weakness; cranial nerves are intact) - Studies Medications List Reviewed: Yes Assessment & Plan - Problems (Diagnosis) (1) Pulmonary edema Current Visit: No Status: Acute (2) Cardiomyopathy Current Visit: Yes Status: Acute (3) ESRD on peritoneal dialysis Current Visit: No Status: Acute (4) Coronary artery disease Onset Date: 11/02/16 Current Visit: No Status: Chronic Qualifiers: (5) H/O aortic valve replacement Current Visit: No Status: Chronic (6) Hypertension Onset Date: 11/02/16 Current Visit: No Status: Chronic Qualifiers: Hypertension type: primary hypertension Qualified Code(s): I10 - Essential (primary) hypertension (7) Lupus Onset Date: 11/02/16 Current Visit: No Status: Chronic Qualifiers: Systemic lupus erythematosus type: unspecified Systemic lupus erythematosus organ involvement: unspecified Qualified Code(s): M32.9 - Systemic lupus erythematosus, unspecified - Plan 1. Echocardiogram pending 2. Low-dose MJ-inhibitor 3. start carvedilol 4. Cardiology consultation appreciated; nephrology consultation pending 5. Continue with diuresing 6. Strict I's and O's 7. Repeat CXR 8. Strict blood sugar control 9. Physical therapy evaluation Discharge Plan: Home Plan to discharge in: Greater than 2 days - Advance Directives Does patient have a Living Will: No Does patient have a Durable POA for Healthcare: No - Code Status/Comfort Care Code Status: Full Code Physician Review: Patient Assessed, Agree with Above Assessment and Plan Critical Care: No Time Spent Managing PTS Care (In Minutes): 35
--- NOTE | 2021-08-09 00:55 | P.PN ---
Date of Service: 08/07/21 Subjective Patient continues to feel better. Volume status is stabilizing. Started cardiac medications. Review of Systems 10-point ROS is otherwise unremarkable Physical Examination - Vital Signs Reviewed - Physical Exam General: Alert, In no apparent distress, Oriented x3 Respiratory: Diminished, Crackles/rales Cardiovascular: Regular rate/rhythm, Normal S1 S2, No murmurs Gastrointestinal: Normal bowel sounds, Soft and benign, Non-distended, No tenderness, No rebound, No guarding Neurological: Other (Patient with generalized weakness; cranial nerves are intact) Assessment & Plan - Problems (Diagnosis) (1) Pulmonary edema Current Visit: No Status: Acute (2) Cardiomyopathy Current Visit: Yes Status: Acute (3) ESRD on peritoneal dialysis Current Visit: No Status: Acute (4) Coronary artery disease Onset Date: 11/02/16 Current Visit: No Status: Chronic Qualifiers: (5) H/O aortic valve replacement Current Visit: No Status: Chronic (6) Hypertension Onset Date: 11/02/16 Current Visit: No Status: Chronic Qualifiers: Hypertension type: primary hypertension Qualified Code(s): I10 - Essential (primary) hypertension (7) Lupus Onset Date: 11/02/16 Current Visit: No Status: Chronic Qualifiers: Systemic lupus erythematosus type: unspecified Systemic lupus erythematosus organ involvement: unspecified Qualified Code(s): M32.9 - Systemic lupus erythematosus, unspecified - Plan Continue plan of care as mentioned below: 1. Echocardiogram with ejection fraction of 25-30% 2. Low-dose MJ-inhibitor 3. Continue carvedilol 4. Cardiology consultation appreciated; nephrology consultation pending- anticipate discharge over the next 24-48 hr. Dopplers pending 5. Continue with diuretic 6. Strict I's and O's 7. Outpatient Rheumatology follow-up 8. Strict blood sugar control 9. Physical therapy evaluation
--- NOTE | 2021-08-09 01:08 | P.PN ---
Date of Service: 08/08/21 Subjective Spoke with Nephrology and they wanted to rule out superior vena cava syndrome. Upper extremity Doppler pending. Continue cardiac medications at this time. Review of Systems 10-point ROS is otherwise unremarkable Physical Examination - Vital Signs Reviewed - Physical Exam General: Alert, In no apparent distress, Oriented x3 Respiratory: Diminished, Crackles/rales Cardiovascular: Regular rate/rhythm, Normal S1 S2, No murmurs Gastrointestinal: Normal bowel sounds, Soft and benign, Non-distended, No t enderness, No rebound, No guarding Neurological: Other (Patient with generalized weakness; cranial nerves are intact) Assessment & Plan - Problems (Diagnosis) (1) Pulmonary edema Current Visit: No Status: Acute (2) Cardiomyopathy Current Visit: Yes Status: Acute (3) ESRD on peritoneal dialysis Current Visit: No Status: Acute (4) Coronary artery disease Onset Date: 11/02/16 Current Visit: No Status: Chronic Qualifiers: (5) H/O aortic valve replacement Current Visit: No Status: Chronic (6) Hypertension Onset Date: 11/02/16 Current Visit: No Status: Chronic Qualifiers: Hypertension type: primary hypertension Qualified Code(s): I10 - Essential (primary) hypertension (7) Lupus Onset Date: 11/02/16 Current Visit: No Status: Chronic Qualifiers: Systemic lupus erythematosus type: unspecified Systemic lupus erythematosus organ involvement: unspecified Qualified Code(s): M32.9 - Systemic lupus erythematosus, unspecified - Plan Continue plan of care as mentioned below: 1. Echocardiogram with ejection fraction of 25-30%; continue cardiac meds and increase volume output during peritoneal dialysis 2. Low-dose MJ-inhibitor 3. Continue carvedilol 4. Cardiology consultation appreciated; nephrology consultation pending- anticipate discharge over the next 24-48 hr. Dopplers pending 5. Continue tapering dose of steroids 6. Strict I's and O's 7. Outpatient Rheumatology follow-up 8. Strict blood sugar control 9. Physical therapy evaluation
[2021-08-09] MEDS ORDERED: EPOETIN 4,000 UNIT/ML VIAL SQ SCH (01:15)
[2021-08-09] MEDS ORDERED: HEPARIN 5000 UNIT/ML 1 ML VIAL SQ SCH (02:00)
[2021-08-09] MEDS ORDERED: DRISDOL (VITAMIN D=ERGOCALCIFEROL) 50000 UNIT CAP PO SCH (02:00)
[2021-08-09 04:48] LABS: Absolute Lymphocytes (CBC) 0.4 K/uL (0.7-4.9); Basophils % 0.2 % (0-1.3); Hematocrit 26.6 % (36.0-45.0); Lymphocytes % 5.6 % (15.3-44.8); MPV 9.9 fL (7.6-11.3); RBC Red Blood Cell Count 2.81 M/uL (3.86-4.86)
[2021-08-09 05:13] LABS: Albumin 2.2 g/dL (3.4-5.0); Magnesium 1.9 mg/dL (1.8-2.4); Phosphorus 2.2 mg/dL (2.5-4.9); Potassium 4.2 mmol/L (3.5-5.1)
[2021-08-09] MEDS: carvediloL 6.25 MG TAB PO SCH (05:39)
[2021-08-09 05:41] VITALS: O2SAT 100
[2021-08-09 05:48] VITALS: BMI 23.6
[2021-08-09 07:54] LABS: Blood Morphology Comment NOT SEEN (NOT SEEN); Platelet Estimate DECR; White Blood Cell Scan OK (OK)
[2021-08-09] MEDS: POTASSIUM 25 MEQ EFFERV TAB PO SCH (08:25)
[2021-08-09] MEDS: SEVELAMER CARBONATE 800 MG TABLET PO SCH ×3 (08:25→17:02)
[2021-08-09] MEDS: CINACALCET HCL 30 MG TAB PO SCH (08:26)
[2021-08-09] MEDS: LACTOBACILLUS/ACIDOPHILUS TAB PO SCH ×2 (08:26→13:42)
[2021-08-09] MEDS: predniSONE 20 MG TAB PO SCH (08:26)
[2021-08-09] MEDS: SERTRALINE HCL 100 MG TAB PO SCH (08:26)
[2021-08-09] MEDS: SPIRONOLACTONE 25 MG TABLET PO SCH (08:33)
[2021-08-09] MEDS: VIT B COMP C PO SCH (08:34)
[2021-08-09] MEDS: VIT D3 PO SCH (08:34)
[2021-08-09] MEDS: Sucroferric Oxyhydroxide [Velphoro] 500 MG Tab.Chew PO SCH ×3 (08:34→17:02)
[2021-08-09] MEDS: FOLIC ACID PO SCH (08:34)
[2021-08-09] MEDS: HOME MED 1 EA UNK (Febuxostat [Febuxostat] 40 MG Tablet) PO SCH (08:34)
[2021-08-09] MEDS: FLUTICASONE 50MCG NASAL SPRAY NAS SCH (08:35)
[2021-08-09] MEDS ORDERED: HOME MED 1 EA UNK (Febuxostat [Febuxostat] 40 MG Tablet) PO SCH (09:00)
[2021-08-09] MEDS ORDERED: Folic Acid/Vit B Complex And C [Dialyvite 800 Chewable Wafer] 800 MCG T PO SCH (09:00)
[2021-08-09] MEDS ORDERED: HOME MED 1 EA UNK (Sucroferric Oxyhydroxide [Velphoro] 500 MG Tab.Chew) PO SCH (09:00)
[2021-08-09] MEDS ORDERED: ASPIRIN 81 MG CHEWABLE TABLET PO SCH (09:00)
[2021-08-09] MEDS ORDERED: SEVELAMER CARBONATE 800 MG TABLET PO SCH (09:00)
[2021-08-09] MEDS ORDERED: SERTRALINE HCL 100 MG TAB PO SCH (09:00)
[2021-08-09] MEDS ORDERED: lisinopriL 5 MG TAB PO SCH (09:00)
[2021-08-09] MEDS ORDERED: ATORVASTATIN 20 MG TAB PO SCH (09:00)
[2021-08-09 09:31] LABS: Urine Appearance CLEAR (Clear); Urine Bilirubin NEGATIVE (Negative); Urine Blood NEGATIVE (Negative); Urine Color YELLOW (Yellow); Urine Glucose 1+ (Negative); Urine Protein 1+ (Negative); Urine Specific Gravity 1.015 (1.005-1.030); Urine Urobilinogen 0.2 mg/dL (0.2-1.0); Urine pH 5.5 (5.0-7.0)
[2021-08-09 09:49] LABS: Urine Microscopic Reflex ORDER UMIC
[2021-08-09] MEDS: FUROSEMIDE 40 MG/4 ML VIAL IV SCH (09:52)
[2021-08-09 09:54] LABS: Urine Bacteria <20 /HPF (<20); Urine RBC <5 /HPF (NONE SEEN); Urine Urothelial Cells <5 /HPF (NONE SEEN)
[2021-08-09 10:30] LABS: Urine Protein/Creatinine Ratio 0.84 ratio (<0.15)
--- NOTE | 2021-08-09 11:33 | RAD REPORT ---
EXAM DESCRIPTION: CT - Chest Angio - 08/09/2021 11:20 am CLINICAL HISTORY: Chest pain. central vein stenosis COMPARISON: Thorax Wo Con dated 06/12/2021; UPPER EXTREMITY VENOUS UNILATE dated 08/08/2021; Chest For Pe Angio dated 11/05/2018; Chest Abd Pelvis Wo Con dated 09/24/2018 TECHNIQUE: CT angiogram of the pulmonary arteries was performed with MIP. All CT scans are performed using dose optimization technique as appropriate and may include automated exposure control or mA/KV adjustment according to patient size. FINDINGS: No evidence of pulmonary thromboembolism. A stent is seen traversing the aortic valve. Sternotomy wires and pacer device noted. No acute aortic finding suspected. 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 Venous phase through the chest was also performed showing no evidence of significant stenosis of the central vein. The superior vena cava is small in caliber but appears patent. Mild interstitial pulmonary edema is present. No focal infiltrate detected. No significant pericardial or pleural fluid. No lytic or blastic bone lesions. Mild fluid is seen along the liver edge. IMPRESSION: No evidence of pulmonary thromboembolism. Although diminutive in size, no significant stenosis or occlusion of the central veins identified. Mild pulmonary edema.
--- NOTE | 2021-08-09 13:19 | PN ---
Subjective: Patient was admitted with over volume. Patient was dialyzed with PD. Her swelling has been subsided. Blood pressure was better. Patient is seen by Cardiology. No intervention. Physical Examination: Vital Signs: Blood pressure 107/67, pulse of 80. Patient was started on carvedilol by Cardiology. Chest: Clear to auscultation. Heart: S1, S2. Systolic murmur. Abdomen: Soft, nontender. Extremities: No edema in the lower extremities. Positive edema in the upper, puffy face. Neurological: Alert, oriented x3. No focal. Weight, patient stabilized on 146, she lost only half kilogram on her scale. Laboratory Data: WBC 6.6, H and H 8.9/26.6. Sodium 136, potassium 4.2, bicarb 26, BUN down to 77, creatinine 7.7, calcium 7.2. Phosphorus 2.2. Albumin 2.2. Corrected calcium is 8.6. Current Medications: The patient is on include: 1. Epogen. 2. Heparin. 3. Atorvastatin. 4. Carvedilol 6.25. 5. Lisinopril 5. 6. Spironolactone. 7. Zoloft. 8. Lasix 80 b.i.d. 9. Sensipar. 10. Prednisone. Assessment And Plan: 1. End-stage renal disease with over volume. Currently, looks to me on the normal volume side. Possible swelling in the upper extremities secondary to central stenosis. I had long discussion with the patient in the presence of the daughter, the need for the angiogram to evaluate the central stenosis. Patient verbalized understanding with the risk of losing the residual of kidney function with angiogram. For today, we are going to use the 1.5 concentration. We will hold on the Lasix for today and tomorrow to minimize the kidney damage and we will hold on the MJ inhibitor also and we will follow up the patient. 2. Hypertension. We will utilize blood pressure for better ultrafiltration. 3. Anemia of chronic kidney disease. Continue BERNARD. 4. Secondary hyperparathyroid. Continue Sensipar and we will monitor. The patient phosphorus on the goal. 5. Congestive heart failure as by Cardiology. Time spent examining the patient [id number] placing order discussing with the patient reviewing data discussing the case with all of our subspecialty including hospitalist 35 minutes KALA/HECTOR Voice ID: [id number] Report ID: [id number] MIGUEL
[2021-08-09 13:40] VITALS: TEMP 96.9
--- NOTE | 2021-08-09 16:38 | P.DS ---
Admission Date: 08/05/21 Discharge Date: 08/09/21 Disposition: ROUTINE DISCHARGE Discharge Condition: GOOD Reason for Admission: SOB Brief History of Present Illness: Patient comes in with sob. Has a history of dialysis. Was found to have chf. Hospital Course: Patient was admitted had an echocardiogram. Was seen by Dr. Knight and Dr. Zazueta The patient is doing better. Ct showed a patent svc No need for anticoagulation. Willl send her home with Coreg and lisinopril. As per Dr. Knight. Will have them follow up with him as an outpatient. Thank you for allowing me to take part in her care. Vital Signs/Physical Exam: Temp Pulse Resp BP Pulse Ox 96.9 F 83 15 111/71 100 08/09/21 12:00 08/09/21 12:00 08/09/21 12:00 08/09/21 12:00 08/09/21 12:00 General: Alert, In no apparent distress HEENT: Atraumatic, PERRLA, EOMI Neck: Supple, JVD not distended Respiratory: Clear to auscultation bilaterally, Normal air movement Cardiovascular: Regular rate/rhythm, Normal S1 S2 Gastrointestinal: Normal bowel sounds, No tenderness Musculoskeletal: No tenderness Integumentary: No rashes Neurological: Normal speech, Normal tone, Normal affect Lymphatics: No axilla or inguinal lymphadenopathy Laboratory Data at Discharge: WBC 6.60 K/uL (4.3-10.9) 08/09/21 04:25 Hgb 8.9 g/dL (12.0-15.0) L 08/09/21 04:25 Hct 26.6 % (36.0-45.0) L 08/09/21 04:25 Plt Count 44 K/uL (152-406) L* D 08/09/21 04:25 PT 12.4 SECONDS (9.5-12.5) 08/06/21 05:03 INR 1.08 08/06/21 05:03 Sodium 136 mmol/L (136-145) 08/09/21 04:25 Potassium 4.2 mmol/L (3.5-5.1) 08/09/21 04:25 BUN 77 mg/dL (7-18) H 08/09/21 04:25 Creatinine 7.78 mg/dL (0.55-1.3) H* 08/09/21 04:25 Glucose 288 mg/dL (74-106) H 08/09/21 04:25 Phosphorus 2.2 mg/dL (2.5-4.9) L 08/09/21 04:25 Magnesium 1.9 mg/dL (1.8-2.4) 08/09/21 04:25 Home Medications: Aspirin 1 tab PO DAILY 08/06/21 Atorvastatin Calcium 20 mg PO DAILY 08/06/21 Carvedilol [Coreg] 0.1 mg PO DAILY PRN 08/06/21 Cinacalcet HCl 30 mg PO DAILY 08/06/21 Epoetin [Retacrit] 0.4 ml SQ SEECOM 08/06/21 Ergocalciferol (Vitamin D2) [Drisdol] 1 tab PO SEECOM 08/06/21 Febuxostat 40 mg PO DAILY 08/06/21 Fluticasone Propionate [Flonase Allergy Relief] 2 sprays CARLOTTA BID 08/06/21 Folic Acid/Vit B Complex and C [Dialyvite 800 Chewable Wafer] 1 tab PO DAILY 08/06/21 Furosemide 20 mg PO SEECOM 08/06/21 Heparin [Heparin Sodium*] 5 ml SQ SEECOM 08/06/21 Lisinopril [Zestril] 40 mg PO BID PRN 08/06/21 Sertraline [Zoloft*] 100 mg PO DAILY 08/06/21 Sevelamer Carbonate [Renvela] 2 tab PO TID 08/06/21 Sucroferric Oxyhydroxide [Velphoro] 500 mg PO TID 08/06/21 cloNIDine HCL [Clonidine HCl] 0.1 mg PO DAILY PRN 08/06/21 Carvedilol [Coreg] 3.125 mg PO BID #90 tablet 08/09/21 Lisinopril [Zestril] 2.5 mg PO DAILY #90 tablet 08/09/21 New Medications: Carvedilol [Coreg] 3.125 mg PO BID #90 tablet Lisinopril [Zestril] 2.5 mg PO DAILY #90 tablet Diet: Renal Activity: Ad richie Followup: Angie Cerda MD [Primary Care Provider] - Julien Knight MD [ACTIVE - CAN ADMIT] - 1-2 Weeks Physician Review: Patient Assessed, Agree with Above Assessment and Plan Time spent managing pt's care (in minutes): 30
[2021-08-09 17:33] VITALS: BP 96/62
[2021-08-12] MEDS ORDERED: DRISDOL (VITAMIN D=ERGOCALCIFEROL) 50000 UNIT CAP PO SCH (09:00)
== END 2021-08-09 18:00 | disposition home or self-care (01) | DRG 291 ==
LOC: ER 13:07 → ERHOLD 17:55 → 2ND 20:14
PROVIDERS: ADMIT Hospitalist; ATTEND Hospitalist
DX: I13.2 Hypertensive heart and chronic kidney disease with heart failure and with stage 5 chronic kidney disease, or end stage renal disease (principal); I50.23 Acute on chronic systolic (congestive) heart failure; N18.6 End stage renal disease; N25.81 Secondary hyperparathyroidism of renal origin; I25.10 Atherosclerotic heart disease of native coronary artery without angina pectoris; M32.9 Systemic lupus erythematosus, unspecified; F32.9 Major depressive disorder, single episode, unspecified; D69.6 Thrombocytopenia, unspecified; E87.6 Hypokalemia; I42.9 Cardiomyopathy, unspecified; E83.51 Hypocalcemia; R01.1 Cardiac murmur, unspecified; D63.1 Anemia in chronic kidney disease; Z95.1 Presence of aortocoronary bypass graft; Z95.2 Presence of prosthetic heart valve; Z95.810 Presence of automatic (implantable) cardiac defibrillator; Z20.822 Contact with and (suspected) exposure to COVID-19
CPT/HCPCS: 36415; 71045; 71275; 80048; 80069; 81003; 81015; 82040; 82570; 83735; 83880; 84100; 84132; 84156; 84443; 85025; 85610; 87086; 87088; 93005; 93306; 93971; 96374; 96375; 97161; 99284; J1940; J3480; J7512; Q5105; Q9967; U0003

== ENCOUNTER 2021-08-25 12:03 | Day surgery (SDC) | payer OTHER ==
[2021-08-21 13:07] LABS: Absolute Lymphocytes (CBC) 0.5 K/uL (0.7-4.9); Basophils % 0.3 % (0-1.3); Hematocrit 28.2 % (36.0-45.0); Lymphocytes % 6.8 % (15.3-44.8); MPV 10.4 fL (7.6-11.3); RBC Red Blood Cell Count 3.05 M/uL (3.86-4.86)
[2021-08-21 13:16] LABS: Protime INR 0.93
[2021-08-21 13:21] LABS: Potassium 3.7 mmol/L (3.5-5.1)
[2021-08-21 13:48] LABS: Blood Morphology Comment NOTED (NOT SEEN); Ovalocytes 1+; Platelet Estimate DECR; Teardrop Cell 1+
[~2021-08-25 12:03] MED LIST: HEPA 1000U/500MLS 2,000 UNIT/1,000 ML BAG IV ONE; NA CHLORIDE 0.9% 500 ML ONE
[2021-08-25] MEDS ORDERED: MIDAZOLAM HCL 2 MG/2 ML INJ ONE (12:13)
[2021-08-25] MEDS ORDERED: FENTANYL CITR 100 MCG/2 ML ONE (12:13)
[2021-08-25] MEDS ORDERED: ATROPINE SULF 1 MG/10 ML SYR IV ONE (12:14)
[2021-08-25] MEDS ORDERED: HEPARIN 5000 UNIT/ML 1 ML VIAL ONE (12:14)
[2021-08-25] MEDS ORDERED: NITROGLYCERIN 100 MCG/ML SYR (for cath lab use only) IV ONE (12:14)
[2021-08-25] MEDS ORDERED: NITROGLYCERIN/D5W 25 MG/250 ML BTL IV ONE ×2 (12:14→12:27)
[2021-08-25] MEDS ORDERED: VERAPAMIL HCL 10 MG/4 ML VIAL IV ONE (12:14)
[2021-08-25 14:31] VITALS: O2SAT 100
[2021-08-25 18:43] VITALS: BP 115/65; TEMP 98.7
--- NOTE | 2021-08-25 20:06 | OP ---
Date of Procedure: 08/25/2021 Surgeon: YANNI WELLS Procedures Performed: 1.Selective coronary angiogram with bypass graft study. 2.Left heart catheterization. 3.Left ventriculogram. Indication: Recent drop in ejection fraction to below 30%. Access: Right femoral artery 6-Tongan closed with StarClose closure device. Complications: None. Bleeding: Less than 10 mL. Anesthesia: Total sedation time was 40 minutes. Description Of Procedure: After risks, benefits, and alternatives were explained, the patient agreed to procedure and signed the informed consent. Then, under fluoroscopy and ultrasound guidance using micropuncture kit, access to right femoral artery with 6-Tongan Winthrop sheath and then took a 6-Fr ench JR4 catheter into the aortic root, engaged the left main coronary artery, right coronary artery. The same catheter with difficulty due to the presence of CoreValve and then catheter was advanced i n the LV and obtained the LVEDP and LV-gram was done. Then point negative was no gradient, and then the catheter was advanced into the left subclavian and WYATT was engaged and took standard views and r emoved the catheter and the sheath was removed and StarClose was used for closure with good hemostasi s. Findings: 1.Left main; large, with diffuse 10% to 20%. 2.LAD; proximal, diffuse 70% to 80% stenosis with patent WYATT. 3.Left circumflex is a 40% to 50% proximal to mid. 4.RCA; large dominant with luminal irregularities. 5.LVEDP of 5 mmHg. 6.LV EF of 60%. 7.Patent WYATT to LAD with a side branch that comes of the WAYTT. Conclusions: 1.Severe LAD disease with patent WYATT and presence of side branch of the WYATT to LAD. 2.Moderate coronary artery disease otherwise. 3.Normal LVEDP. 4.Normal ejection fraction, wall motion. Plan: 1.The patient is to be symptomatic. We will plan for a WYATT sub-branch coiling. 2.Obtain echocardiogram to assess the heart function. SR/MODL Voice ID: [id number] Report ID: [id number]
--- NOTE | 2021-08-26 07:55 | ECHO ---
HEIGHT: 5 ft 6 in WEIGHT: 141 lb 0 oz DATE OF STUDY: 08/25/[address]: Julien Knight 2-DIMENSIONAL: YES M.MODE: YES DOPPLER: YES COLOR FLOW: YES TDS: NO PORTABLE: NO DEFINITY: NO BUBBLE STUDY: NO DIAGNOSIS: POST HEART CATH CARDIAC HISTORY: CATHERIZATION: YES SURGERY: PROSTHETIC VALVE: YES PACEMAKER: MEASUREMENTS (cm) DIASTOLIC (NORMALS) SYSTOLIC (NORMALS) IVSd 1.3 (0.6-1.2) LA Diam 4.0 (1.9-4.0) LVEF 55-60% LVIDd 4.8 (3.5-5.7) LVIDs 3.7 (2.0-3.5) %FS 22% LVPWd 1.3 (0.6-1.2) Ao Diam 2.5 (2.0-3.7) 2 DIMENSIONAL ASSESSMENT: RIGHT ATRIUM: NORMAL LEFT ATRIUM: NORMAL RIGHT VENTRICLE: NORMAL LEFT VENTRICLE: NORMAL TRICUSPID VALVE: MITRAL VALVE: PULMONIC VALVE: AORTIC VALVE: NORMAL FUNCTION PERICARDIAL EFFUSION: NONE AORTIC ROOT: NORMAL LEFT VENTRICULAR WALL MOTION: NORMAL DOPPLER/COLOR FLOW: SEE BELOW. COMMENTS: NORMAL LEFT VENTRICULAR EJECTION FRACTION 55-60%. MILD TO MODERATE TRICUPSID REGURGITATION. MODERATE MITRAL REGURGITATION WITH MILD MITRAL STENOSIS. NORMALLY FUNCTIONING AORTIC PROSTHESIS. TECHNOLOGIST: Gomez GARZA
== END 2021-08-25 16:54 | disposition home or self-care (01) ==
LOC: CCL 12:03
PROVIDERS: ATTEND Internal Medicine
DX: I25.10 Atherosclerotic heart disease of native coronary artery without angina pectoris (principal); I11.0 Hypertensive heart disease with heart failure; I50.9 Heart failure, unspecified; E78.5 Hyperlipidemia, unspecified; Z95.0 Presence of cardiac pacemaker; Z95.2 Presence of prosthetic heart valve; Z20.822 Contact with and (suspected) exposure to COVID-19
CPT/HCPCS: 93005; 93306; 85025; 80048; 36415; 85610; 85730; 93459; U0003; C1893; J1644 ×2; J3010; J7040; J2250

== ENCOUNTER 2022-02-17 06:41 | Inpatient (IN) | payer OTHER ==
--- OUTSIDE RECORDS SUMMARY | 2022-02-17 06:46 | XMS REPORT | Continuity of Care Document ---
:1950 Author Organization [facility] t Address [address] [place] [address] Care Team Providers Name Role Phone Robert Carranza MD Primary Care Physician PRIYANKA Attending Clinician Unavailable PRIYANKA Attending Clinician Unavailable Cruz COYNE, Hugo Attending Clinician Priyanka COYNE Attending Clinician Mateo COYNE, Torres Attending Clinician TORRES FOSTER Attending Clinician Unavailable Kalpana COYNE, Mariana N Attending Clinician Wilmer COYNE Attending Clinician Raymundo COYNE, Tiara Attending Clinician Mariana Newell Attending Clinician Unavailable Doctor Unassigned, Name Attending Clinician Unavailable Comfort Kim MA Attending Clinician Unavailable Paola COYNE, H. Attending Clinician ANATOLY ANDERSEN Attending Clinician Unavailable Payers Payer Name Policy Type Policy Number Effective Date Expiration Date S ource MEDICARE PART A [id number] 2016 \T\ B 00:00:00 [facility] [id number] 2021 00:00:00 Problems Condition Condition Condition Status Onset Resolution Last Treating Co mments Source Name Details Category Date Date Treatment Clinician Date Peripheral Peripheral Disease Active U [facility] vascular vascular 7-12 ity of disease disease 00:00: [place] 00 Medical Branch End-stage End-stage Disease Active Overview: Methodi renal renal 8-[address] disease disease 00:00: g of this Hospi ta 00 note l might be different from the original. Added automatic ally from request for surgery [id number] S/P TAVR S/P TAVR Disease Active Overview: Me thodi (transcath (transcath 6-[address] eter eter 00:00: g of this Hosp[facility] aortic aortic 00 note l valve valve might be replacemen replacemen different t) t) from the original. 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 to stage 5 0-02 it y of chronic chronic 00:00: [place] kidney kidney 00 Medical disease, disease, Branch not on not on chronic chronic dialysis dialysis Secondary Secondary Disease Active 2017-11 Uni vers hyperparat hyperparat 0-02 [place] of hyroidism hy[place] [facility] [place] Vitamin D Vitamin D Disease Active 2017-11 Uni vers deficiency deficiency 0-02 it y of 00:00: [place] [address] Medical Branch History of History of Disease Active U nivers lupus lupus 7- [place] of nephritis [place] [facility] CKD stage CKD stage Disease Active Uni vers G5/A3, GFR G5/A3, GFR 7-21 it y of <15 and <15 and 00:00: [place] albumin albumin [address] [place] [address] creatinine creatinine Br anch ratio >300 ratio >300 mg/g mg/g Elevated Elevated Disease Active Unive rs serum serum 7 [place] creatinine creatinine [place] [facility] Thrombocyt Thrombocyt Disease Active U nivers openia openia - ity of 00:00: [address] Branch RADHA RADHA Disease Active Univers positive positive 12-10 ity of 00:00: [place] [facility] Branch SS-A SS-A Disease Active Univers antibody antibody - ity of positive positive 00:00: [place] [facility] Essential Essential Disease Active 2012-11 Uni vers hypertensi hypertensi 2-20 it y of on, benign on, benign [place] [facility] [place] Red eye Red eye Disease Active Univers 8-30 ity of 00:00: [place] 00 [facility] Iron Iron Disease Active Univers deficiency deficiency 8-30 it y of anemia anemia 00:00: [place] 00 [facility] Skin rash Skin rash Disease Active Uni vers 6-07 ity of 00:00: [place] 00 [facility] Hyperurice Hyperurice Disease Active U nivasim otto otto 5-14 ity of 00:00: [place] 00 [facility] Systemic Systemic Disease Active Unive rs lupus lupus 5-08 [place]y of erythemato erythemato [place] e[place]iel[place] ezekiel, 00 Medical unspecifie unspecifie Br anch d SLE d SLE type, type, unspecifie unspecifie d organ d organ involvemen involvemen t status t status Loss of Loss of Disease Active Univers weight weight 5-08 ity of 00:00: [place] 00 [facility] Other Other Disease Active Univers malaise malaise 5-08 ity of and and 00:00: [place] fatigue fatigue [facility] Other Other Disease Active Univers abnormal abnormal 5-08 ity of blood blood 00:00: [place] chemistry chemistry 00 [facility] Allergies, Adverse Reactions, Alerts Allergy Allergy Status Severity Reaction(s) Onset Inactive Treating Comm ents Source Name Type Date Date Clinician NO KNOWN Drug Active Univers ALLERGIE Class ity of S [facility] Family History Family Member Diagnosis Comments Start Date Stop Date Source Natural father Heart disease [facility] Natural father [facility] Natural father Heart disease [facility] Natural mother ALS [facility] Natural mother Neuromuscular disorder [facility] Natural sister Hypertension [facility] Social History Social Habit Start Date Stop Date Quantity Comments Source Sex Assigned At [facility] History SDOH University o f Alcohol Frequency [place] M edical Branch History SDOH University o f Alcohol Std [place] Medical Drinks Branch History SDOH University o f Alcohol Binge [place] Medic al Branch Exposure to Not sure University of SARS-CoV-2 [place] Medical (event) Branch Alcohol intake 2018-11-30 2018-11-30 Current drinker RAMANDEEP Borja - 00:00:00 00:00:00 of formerly [facility] (finding) Alcohol Comment 2018-11-30 2018-11-30 rarely used RAMANDEEP Dasilva ukes - 00:00:00 00:00:00 [facility] Center Tobacco use and 2013-03-22 2013-03-22 Never used Universit y of exposure 00:00:00 00:00:00 [facility] Smoking Status Start Date Stop Date Source Never smoker [facility] Medications Ordered Filled Start Stop Current Ordering Indication Dosage Frequency Signature Comments Components Source Medication Medication Date Date Medication? Clinician (SIG) Name Name 2020-11- No [id number] 45.2mCi 45.2 Univ ers 99m-tetrofo 12-31 millicurie i ty of smin 20:30: 19:17 , [place] ([facility]) 00 :00 Intravenou Medi jaxon injection s, ONCE, 1 Bran ch 45.2 dose, On [facility] 10/30/21 at 1430, Routine Regadenoson 2020-11- No [id number] .4mg 0.4 mg, IV Univers (LEXISCAN) 12-31 Push, ity of injection 20:15: 19:16 [place]CE[place] 1 [place] 0.4 mg 00 :00 dose, On [facility] 10/30/21 at 1415, Routine
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 [facility] fluticasone 2020-11 Yes 1{spray Use 1 Un delphine 50 1-19 } [place] in ity of mcg/actuati 11:37: each [place] on nasal 16 nostril 2 Medica l spray (two) Branch times daily. aspirin 81 2020-11 Yes 81mg Take 81 mg U nivers mg EC 1-19 by mouth ity of tablet 11:37: daily. [address] multivitami 2020-11 Yes Take by Un delphine n,therapeut 1-19 mouth. ity of ic (THERA 11:37: [place] MULTI-VITAM 16 Medical IN ORAL) Branch metoclopram 2020-11 Yes 5mg Take 5 mg U nivers yaw HCl 5 1-19 by mouth 3 ity of mg tablet 11:37: (three) [place] [address] times Medical daily with Branch meals. sevelamer 2020-11 Yes 3200mg Take 3,200 Univers 800 mg 1-19 mg by ity of tablet 11:37: mouth 3 [place] [address] (three) Medical times Branch daily with meals. pantoprazol 2020-11 Yes 40mg Take 40 mg Univers e 20 mg EC 1-19 by mouth ity o f tablet 11:37: daily. [address] Branch EPOETIN 2020-11 Yes [id number] Inject Univer s ZAYDA 1-19 13,000 ity of INJECTION 11:37: [place] 16 directed Medical weekly. Branch Cholecalcif 2020-11 Yes 1000U Take 1,000 Univers naresh, 1-19 Units by ity of Vitamin D3, 11:37: [facility] Medical (1,000 Branch unit) capsule atorvastati 2020-11 Yes 20mg Take 20 mg Univers n 20 mg 1-19 by mouth ity of tablet 11:37: at [place] [address] bedtime. Medical Branch fluticasone 2020-11 Yes 1{spray Use 1 Un delphine 50 1-19 } [place] in ity of mcg/actuati 11:37: each [place] on nasal 16 nostril 2 Medica l spray (two) Branch times daily. aspirin 81 2020-11 Yes 81mg Take 81 mg U nivers mg EC 1-19 by mouth ity of tablet 11:37: daily. [address] Branch multivitami 2020-11 Yes Take by Un delphine n,therapeut 1-19 mouth. ity of ic (THERA 11:37: [place] MULTI-VITAM 16 Medical IN ORAL) Branch metoclopram 2020-11 Yes 5mg Take 5 mg U nivers yaw HCl 5 1-19 by mouth 3 ity of mg tablet 11:37: (three) [place] [address] times Medical daily with Branch meals. sevelamer 2020-11 Yes 3200mg Take 3,200 Univers 800 mg 1-19 mg by ity of tablet 11:37: mouth 3 [place] [address] (three) Medical times Branch daily with meals. pantoprazol 2020-11 Yes 40mg Take 40 mg Univers e 20 mg EC 1-19 by mouth ity o f tablet 11:37: daily. [place] [address] Medical Branch EPOETIN 2020-11 Yes [id number] Inject Univer s ZAYDA 1-19 13,000 ity of INJECTION 11:37: Units as [facility] s directed Medical weekly. Branch Cholecalcif 2020-11 Yes 1000U Take 1,000 Univers naresh, 1-19 Units by ity of Vitamin D3, 11:37: mouth. [facility] 25 mcg 16 Medical (1,000 Branch unit) capsule atorvastati 2020-11 Yes 20mg Take 20 mg Univers n 20 mg 1-19 by mouth ity of tablet 11:37: at [place] [address] bedtime. Medical Branch fluticasone 2020-11 Yes 1{spray Use 1 Un delphine 50 1-19 } [place] in ity of mcg/actuati 11:37: each [place] on nasal 16 nostril 2 Medica l spray (two) Branch times daily. aspirin 81 2020-11 Yes 81mg Take 81 mg U nivers mg EC 1-19 by mouth ity of tablet 11:37: daily. [address] Branch multivitami 2020-11 Yes Take by Un delphine n,therapeut 1-19 mouth. ity of ic (THERA 11:37: [place] MULTI-VITAM 16 Medical IN ORAL) Branch metoclopram 2020-11 Yes 5mg Take 5 mg U nivers yaw HCl 5 1-19 by mouth 3 ity of mg tablet 11:37: (three) [address] daily with Branch meals. sevelamer 2020-11 Yes 3200mg Take 3,200 Univers 800 mg 1-19 mg by ity of tablet 11:37: mouth 3 [place] [address] (three) Medical times [place] daily with meals. pantoprazol 2020-11 Yes 40mg Take 40 mg Univers e 20 mg EC 1-19 by mouth ity o f tablet 11:37: daily. [address] Branch EPOETIN 2020-11 Yes [id number] Inject Univer s ZAYDA 1-19 13,000 ity of INJECTION 11:37: [facility] Medical weekly. Branch Cholecalcif 2020-11 Yes 1000U Take 1,000 Univers naresh, 1-19 Units by ity of Vitamin D3, 11:37: [place]. [place] 25 [place]cg 16 Medical (1,000 Branch unit) capsule atorvastati 2020-11 Yes 20mg Take 20 mg Univers n 20 mg 1-19 by mouth ity of tablet 11:37: at [place] [address] bedtime. Medical Branch fluticasone 2020-11 Yes 1{spray Use 1 Un delphine 50 1-19 } [place] in ity of mcg/actuati 11:37: each [place] on nasal 16 nostril 2 Medica l spray (two) Branch times daily. aspirin 81 2020-11 Yes 81mg Take 81 mg U nivers mg EC 1-19 by mouth ity of tablet 11:37: daily. [address] Branch multivitami 2020-11 Yes Take by Un delphine n,therapeut 1-19 mouth. ity of ic (THERA 11:37: [place] MULTI-VITAM 16 Medical IN ORAL) Branch metoclopram 2020-11 Yes 5mg Take 5 mg U nivers yaw HCl 5 1-19 by mouth 3 ity of mg tablet 11:37: (three) [place] [address] times Medical daily with Branch meals. sevelamer 2020-11 Yes 3200mg Take 3,200 Univers 800 mg 1-19 mg by ity of tablet 11:37: mouth 3 [place] 16 (three) Medical times Branch daily with meals. pantoprazol 2020-11 Yes 40mg Take 40 mg Univers e 20 mg EC 1-19 by mouth ity o f tablet 11:37: daily. [address] Branch EPOETIN 2020-11 Yes [id number] Inject Univer s ZAYDA 1-19 13,000 ity of INJECTION 11:37: Units [place] 16 directed Medical weekly. Branch Cholecalcif 2020-11 Yes 1000U Take 1,000 Univers naresh, 1-19 Units by ity of Vitamin D3, 11:37: [place]. [place] 25 [place]cg 16 Medical (1,000 Branch unit) capsule atorvastati 2020-11 Yes 20mg Take 20 mg Univers n 20 mg 1-19 by mouth ity of tablet 11:37: at [place] [address] bedtime. Medical Branch fluticasone 2020-11 Yes 1{spray Use 1 Un delphine 50 1-19 } [place] in ity of mcg/actuati 11:37: each [place] on nasal 16 nostril 2 Medica l spray (two) Branch times daily. aspirin 81 2020-11 Yes 81mg Take 81 mg U nivers mg EC 1-19 by mouth ity of tablet 11:37: daily. [address] Branch multivitami 2020-11 Yes Take by Un delphine n,therapeut 1-19 mouth. ity of ic (THERA 11:37: [place] MULTI-VITAM 16 Medical IN ORAL) Branch metoclopram 2020-11 Yes 5mg Take 5 mg U nivers yaw HCl 5 1-19 by mouth 3 ity of mg tablet 11:37: (three) [place] [address] times Medical daily with Branch meals. sevelamer 2020-11 Yes 3200mg Take 3,200 Univers 800 mg 1-19 mg by ity of tablet 11:37: mouth 3 [place] [address] (three) Medical times Branch daily with meals. pantoprazol 2020-11 Yes 40mg Take 40 mg Univers e 20 mg EC 1-19 by mouth ity o f tablet 11:37: daily. [address] Branch EPOETIN 2020-11 Yes [id number] Inject Univer s ZAYDA 1-19 13,000 ity of INJECTION 11:37: Units [place] 16 directed Medical weekly. Branch Cholecalcif 2020-11 Yes 1000U Take 1,000 Univers naresh, 1-19 Units by ity of Vitamin D3, 11:37: [place]. [place] 25 mcg Medical (1,000 Branch unit) capsule atorvastati 2020-11 Yes 20mg Take 20 mg Univers n 20 mg 1-19 by mouth ity of tablet 11:37: at [place] [address] bedtime. Medical Branch fluticasone 2020-11 Yes 1{spray Use 1 Un delphine 50 1-19 } [place] in ity of mcg/actuati 11:37: each [place] on nasal 16 nostril 2 Medica l spray (two) Branch times daily. aspirin 81 2020-11 Yes 81mg Take 81 mg U nivers mg EC 1-19 by mouth ity of tablet 11:37: daily. [address] multivitami 2020-11 Yes Take by Un delphine n,therapeut 1-19 mouth. ity of ic (THERA 11:37: [place] MULTI-VITAM 16 Medical IN ORAL) Branch metoclopram 2020-11 Yes 5mg Take 5 mg U nivers yaw HCl 5 1-19 by mouth 3 ity of mg tablet 11:37: (three) [address] Medical daily with Branch meals. sevelamer 2020-11 Yes 3200mg Take 3,200 Univers 800 mg 1-19 mg by ity of tablet 11:37: mouth 3 [place] [address] (three) Medical times [place] daily with meals. pantoprazol 2020-11 Yes 40mg Take 40 mg Univers e 20 mg EC 1-19 by mouth ity o f tablet 11:37: daily. [address] Branch EPOETIN 2020-11 Yes [id number] Inject Univer s ZAYDA 1-19 13,000 ity of INJECTION 11:37: Units [place] 16 directed Medical weekly. Branch Cholecalcif 2020-11 Yes 1000U Take 1,000 Univers naresh, 1-19 Units by ity of Vitamin D3, 11:37: mouth. [facility] 25 mcg Medical (1,000 Branch unit) capsule atorvastati 2020-11 Yes 20mg Take 20 mg Univers n 20 mg 1-19 by mouth ity of tablet 11:37: at [place] [address] bedtime. Medical Branch fluticasone 2020-11 Yes 1{spray Use 1 Un delphine 50 1-19 } [place] in ity of mcg/actuati 11:37: each [place] on nasal 16 nostril 2 Medica l spray (two) Branch times daily. aspirin 81 2020-11 Yes 81mg Take 81 mg U nivers mg EC 1-19 by mouth ity of tablet 11:37: daily. [address] Branch multivitami 2020-11 Yes Take by Un delphine n,therapeut 1-19 mouth. ity of ic (THERA 11:37: [place] MULTI-VITAM 16 Medical IN ORAL) Branch metoclopram 2020-11 Yes 5mg Take 5 mg U nivers yaw HCl 5 1-19 by mouth 3 ity of mg tablet 11:37: (three) [address] Medical daily with Branch meals. sevelamer 2020-11 Yes 3200mg Take 3,200 Univers 800 mg 1-19 mg by ity of tablet 11:37: mouth 3 [place] [address] (three) Medical times [place] daily with meals. pantoprazol 2020-11 Yes 40mg Take 40 mg Univers e 20 mg EC 1-19 by mouth ity o f tablet 11:37: daily. [address] Branch EPOETIN 2020-11 Yes [id number] Inject Univer s ZAYDA 1-19 13,000 ity of INJECTION 11:37: [facility] Medical [facility]. Branch Cholecalcif 2020-11 Yes 1000U Take 1,000 Univers naresh, 1-19 Units by ity of Vitamin D3, 11:37: [facility]. [facility] 16 Medical (1,000 Branch unit) capsule atorvastati 2020-11 Yes 20mg Take 20 mg Univers n 20 mg 1-19 by mouth ity of tablet 11:37: at [place] [address] bedtime. Medical Branch fluticasone 2020-11 Yes 1{spray Use 1 Un delphine 50 1-19 } [place] in ity of mcg/actuati 11:37: each [place] on nasal 16 nostril 2 Medica l spray (two) Branch times daily. aspirin 81 2020-11 Yes 81mg Take 81 mg U nivers mg EC 1-19 by mouth ity of tablet 11:37: daily. [address] multivitami 2020-11 Yes Take by Un delphine n,therapeut 1-19 mouth. ity of ic (THERA 11:37: [place] MULTI-VITAM 16 Medical IN ORAL) Branch metoclopram 2020-11 Yes 5mg Take 5 mg U nivers yaw HCl 5 -19 by mouth 3 ity of mg tablet 11:37: (three) [place] [address] times [facility] daily with Branch meals. sevelamer 2020-11 Yes 3200mg Take 3,200 Univers 800 mg 1-19 mg by ity of tablet 11:37: mouth 3 [place] [address] (three) Medical times [place] daily with meals. pantoprazol 2020-11 Yes 40mg Take 40 mg Univers e 20 mg EC 1-19 by mouth ity o f tablet 11:37: daily. [address] Branch EPOETIN 2020-11 Yes [id number] Inject Univer s ZAYDA 1-19 13,000 ity of INJECTION 11:37: [facility] Medical weekly. Branch Cholecalcif 2020-11 Yes 1000U Take 1,000 Univers naresh, 1-19 Units by ity of Vitamin D3, 11:37: [place]. [place] 25 [place]cg 16 Medical (1,000 Branch unit) capsule atorvastati 2020-11 Yes 20mg Take 20 mg Univers n 20 mg 1-19 by mouth ity of tablet 11:37: at [place] [address] bedtime. Medical Branch fluticasone 2020-11 Yes 1{spray Use 1 Un delphine 50 1-19 } [place] in ity of mcg/actuati 11:37: each [place] on nasal 16 nostril 2 Medica l spray (two) Branch times daily. aspirin 81 2020-11 Yes 81mg Take 81 mg U nivers mg EC 1-19 by mouth ity of tablet 11:37: daily. [address] Branch multivitami 2020-11 Yes Take by Un delphine n,therapeut 1-19 mouth. ity of ic (THERA 11:37: [place] MULTI-VITAM Medical IN ORAL) Branch metoclopram 2020-11 Yes 5mg Take 5 mg U nivers yaw HCl 5 1-19 by mouth 3 ity of mg tablet 11:37: (three) [place] [address] times Medical daily with Branch meals. sevelamer 2020-11 Yes 3200mg Take 3,200 Univers 800 mg 1-19 mg by ity of tablet 11:37: mouth 3 [place] [address] (three) Medical times [place] daily with meals. pantoprazol 2020-11 Yes 40mg Take 40 mg Univers e 20 mg EC 1-19 by mouth ity o f tablet 11:37: daily. [address] Branch EPOETIN 2020-11 Yes [id number] Inject Univer s ZAYDA 1-19 13,000 ity of INJECTION 11:37: [facility] Medical weekly. Branch Cholecalcif 2020-11 Yes 1000U Take 1,000 Univers naresh, 1-19 Units by ity of Vitamin D3, 11:37: [place]. [place] 25 mcg 16 Medical (1,000 Branch unit) capsule atorvastati 2020-11 Yes 20mg Take 20 mg Univers n 20 mg 1-19 by mouth ity of tablet 11:37: at [place] [address] bedtime. Medical Branch fluticasone 2020-11 Yes 1{spray Use 1 Un delphine 50 1-19 } [place] in ity of mcg/actuati 11:37: each [place] on nasal 16 nostril 2 Medica l spray (two) Branch times daily. aspirin 81 2020-11 Yes 81mg Take 81 mg U nivers mg EC 1-19 by mouth ity of tablet 11:37: daily. [address] multivitami 2020-11 Yes Take by Un delphine n,therapeut 1-19 mouth. ity of ic (THERA 11:37: [place] MULTI-VITAM 16 Medical IN ORAL) Branch metoclopram 2020-11 Yes 5mg Take 5 mg U nivers yaw HCl 5 1-19 by mouth 3 ity of mg tablet 11:37: (three) [place] [address] times Medical daily with Branch meals. sevelamer 2020-11 Yes 3200mg Take 3,200 Univers 800 mg 1-19 mg by ity of tablet 11:37: mouth 3 [place] [address] (three) Medical times [place] daily with meals. pantoprazol 2020-11 Yes 40mg Take 40 mg Univers e 20 mg EC 1-19 by mouth ity o f tablet 11:37: daily. [address] Branch EPOETIN 2020-11 Yes [id number] Inject Univer s ZAYDA -19 13,000 ity of INJECTION 11:37: Units [place] 16 directed Medical weekly. Branch Cholecalcif 2020-11 Yes 1000U Take 1,000 Univers naresh, 1-19 Units by ity of Vitamin D3, 11:37: mouth. [place] 25 mcg 16 Medical (1,000 Branch unit) capsule atorvastati 2020-11 Yes 20mg Take 20 mg Univers n 20 mg 1-19 by mouth ity of tablet 11:37: at [place] [address] bedtime. Medical Branch fluticasone 2020-11 Yes 1{spray Use 1 Un delphine 50 1-19 } [place] in ity of mcg/actuati 11:37: each [place] on nasal 16 nostril 2 Medica l spray (two) Branch times daily. aspirin 81 2020-11 Yes 81mg Take 81 mg U nivers mg EC 1-19 by mouth ity of tablet 11:37: daily. [address] multivitami 2020-11 Yes Take by Un delphine n,therapeut 1-19 mouth. ity of ic (THERA 11:37: [place] MULTI-VITAM 16 Medical IN ORAL) Branch metoclopram 2020-11 Yes 5mg Take 5 mg U nivers yaw HCl 5 1-19 by mouth 3 ity of mg tablet 11:37: (three) [place] [address] times Medical daily with Branch meals. sevelamer 2020-11 Yes 3200mg Take 3,200 Univers 800 mg 1-19 mg by ity of tablet 11:37: mouth 3 [place] [address] (three) Medical times Branch daily with meals. pantoprazol 2020-11 Yes 40mg Take 40 mg Univers e 20 mg EC 1-19 by mouth ity o f tablet 11:37: daily. [address] Branch EPOETIN 2020-11 Yes [id number] Inject Univer s ZAYDA 1-19 13,000 ity of INJECTION 11:37: Units [place] 16 directed Medical weekly. Branch Cholecalcif 2020-11 Yes 1000U Take 1,000 Univers naresh, 1-19 Units by ity of Vitamin D3, 11:37: [facility]. [facility] Medical (1,000 Branch unit) capsule atorvastati 2020-11 Yes 20mg Take 20 mg Univers n 20 mg 1-19 by mouth ity of tablet 11:37: at [place] [address] bedtime. Medical Branch fluticasone 2020-11 Yes 1{spray Use 1 Un delphine 50 1-19 } [place] in ity of mcg/actuati 11:37: each [place] on nasal 16 nostril 2 Medica l spray (two) Branch times daily. aspirin 81 2020-11 Yes 81mg Take 81 mg U nivers mg EC 1-19 by mouth ity of tablet 11:37: daily. [address] Branch multivitami 2020-11 Yes Take by Un delphine n,therapeut 1-19 mouth. ity of ic (THERA 11:37: [place] MULTI-VITAM 16 Medical IN ORAL) Branch metoclopram 2020-11 Yes 5mg Take 5 mg U nivers yaw HCl 5 1-19 by mouth 3 ity of mg tablet 11:37: (three) [address] Medical daily with Branch meals. sevelamer 2020-11 Yes 3200mg Take 3,200 Univers 800 mg 1-19 mg by ity of tablet 11:37: mouth 3 [place] [address] (three) Medical times Branch daily with meals. pantoprazol 2020-11 Yes 40mg Take 40 mg Univers e 20 mg EC 1-19 by mouth ity o f tablet 11:37: daily. [address] EPOETIN 2020-11 Yes [id number] Inject Univer s ZAYDA 1-19 13,000 ity of INJECTION 11:37: Units as [place] [address] directed Medical weekly. Branch Cholecalcif 2020-11 Yes 1000U Take 1,000 Univers naresh, 1-19 Units by ity of Vitamin D3, 11:37: [place]. [place] 25 [place]cg 16 Medical (1,000 Branch unit) capsule atorvastati 2020-11 Yes 20mg Take 20 mg Univers n 20 mg 1-19 by mouth ity of tablet 11:37: at [place] [address] bedtime. Medical Branch fluticasone 2020-11 Yes 1{spray Use 1 Un delphine 50 -19 } [place] in ity of mcg/actuati 11:37: each [place] on nasal 16 nostril 2 Medica l spray (two) Branch times daily. aspirin 81 2020-11 Yes 81mg Take 81 mg U nivers mg EC 1-19 by mouth ity of tablet 11:37: daily. [address] multivitami 2020-11 Yes Take by Un delphine n,therapeut 1-19 mouth. ity of ic (THERA 11:37: [place] MULTI-VITAM 16 Medical IN ORAL) Branch metoclopram 2020-11 Yes 5mg Take 5 mg U nivers yaw HCl 5 -19 by mouth 3 ity of mg tablet 11:37: (three) [place] [address] times [facility] daily with Branch meals. sevelamer 2020-11 Yes 3200mg Take 3,200 Univers 800 mg 1-19 mg by ity of tablet 11:37: mouth 3 [place] [address] (three) Medical times [place] daily with meals. pantoprazol 2020-11 Yes 40mg Take 40 mg Univers e 20 mg EC 1-19 by mouth ity o f tablet 11:37: daily. [address] EPOETIN 2020-11 Yes [id number] Inject Univer s ZAYDA 1-19 13,000 ity of INJECTION 11:37: Units as [facility] s directed Medical weekly. Branch Cholecalcif 2020-11 Yes 1000U Take 1,000 Univers naresh, 1-19 Units by ity of Vitamin D3, 11:37: [place]. [place] 25 m[place] 16 Medical (1,000 Branch unit) capsule atorvastati 2020-11 Yes 20mg Take 20 mg Univers n 20 mg 1-19 by mouth ity of tablet 11:37: at [place] [address] bedtime. Medical Branch fluticasone 2020-11 Yes 1{spray Use 1 Un delphine 50 1-19 } [place] in ity of mcg/actuati 11:37: each [place] on nasal 16 nostril 2 Medica l spray (two) Branch times daily. aspirin 81 2020-11 Yes 81mg Take 81 mg U nivers mg EC 1-19 by mouth ity of tablet 11:37: daily. [address] Branch multivitami 2020-11 Yes Take by Un delphine n,therapeut 1-19 mouth. ity of ic (THERA 11:37: [place] MULTI-VITAM Medical IN ORAL) Branch metoclopram 2020-11 Yes 5mg Take 5 mg U nivers yaw HCl 5 1-19 by mouth 3 ity of mg tablet 11:37: (three) [place] [address] times [facility] daily with Branch meals. sevelamer 2020-11 Yes 3200mg Take 3,200 Univers 800 mg 1-19 mg by ity of tablet 11:37: mouth 3 [place] [address] (three) Medical times Branch daily with meals. pantoprazol 2020-11 Yes 40mg Take 40 mg Univers e 20 mg EC 1-19 by mouth ity o f tablet 11:37: daily. [address] Branch EPOETIN 2020-11 Yes [id number] Inject Univer s ZAYDA 1-19 13,000 ity of INJECTION 11:37: Units [place] 16 directed Medical weekly. Branch Cholecalcif 2020-11 Yes 1000U Take 1,000 Univers naresh, 1-19 Units by ity of Vitamin D3, 11:37: [facility] Medical (1,000 Branch unit) capsule atorvastati 2020-11 Yes 20mg Take 20 mg Univers n 20 mg 1-19 by mouth ity of tablet 11:37: at [place] [address] bedtime. Medical Branch fluticasone 2020-11 Yes 1{spray Use 1 Un delphine 50 1-19 } [place] in ity of mcg/actuati 11:37: each [place] on nasal 16 nostril 2 Medica l spray (two) Branch times daily. aspirin 81 2020-11 Yes 81mg Take 81 mg U nivers mg EC 1-19 by mouth ity of tablet 11:37: daily. [address] Branch multivitami 2020-11 Yes Take by Un delphine n,therapeut 1-19 mouth. ity of ic (THERA 11:37: [place] MULTI-VITAM 16 Medical IN ORAL) Branch metoclopram 2020-11 Yes 5mg Take 5 mg U nivers yaw HCl 5 1-19 by mouth 3 ity of mg tablet 11:37: (three) [address] Medical daily with Branch meals. sevelamer 2020-11 Yes 3200mg Take 3,200 Univers 800 mg 1-19 mg by ity of tablet 11:37: mouth 3 [place] [address] (three) Medical times [place] daily with meals. pantoprazol 2020-11 Yes 40mg Take 40 mg Univers e 20 mg EC 1-19 by mouth ity o f tablet 11:37: daily. [address] Branch EPOETIN 2020-11 Yes [id number] Inject Univer s ZAYDA 1-19 13,000 ity of INJECTION 11:37: Units [place] 16 directed Medical weekly. Branch Cholecalcif 2020-11 Yes 1000U Take 1,000 Univers naresh, 1-19 Units by ity of Vitamin D3, 11:37: [facility]. [facility] Medical (1,000 Branch unit) capsule atorvastati 2020-11 Yes 20mg Take 20 mg Univers n 20 mg 1-19 by mouth ity of tablet 11:37: at [place] [address] bedtime. Medical Branch fluticasone 2020-11 Yes 1{spray Use 1 Un delphine 50 1-19 } [place] in ity of mcg/actuati 11:37: each [place] on nasal 16 nostril 2 Medica l spray (two) Branch times daily. aspirin 81 2020-11 Yes 81mg Take 81 mg U nivers mg EC 1-19 by mouth ity of tablet 11:37: daily. [address] Branch multivitami 2020-11 Yes Take by Un delphine n,therapeut 1-19 mouth. ity of ic (THERA 11:37: [place] MULTI-VITAM 16 Medical IN ORAL) Branch metoclopram 2020-11 Yes 5mg Take 5 mg U nivers yaw HCl 5 1-19 by mouth 3 ity of mg tablet 11:37: (three) [address] Medical daily with Branch meals. sevelamer 2020-11 Yes 3200mg Take 3,200 Univers 800 mg 1-19 mg by ity of tablet 11:37: mouth 3 [place] 16 (three) Medical times Branch daily with meals. pantoprazol 2020-11 Yes 40mg Take 40 mg Univers e 20 mg EC 1-19 by mouth ity o f tablet 11:37: daily. [place] 16 Medical Branch EPOETIN 2020-11 Yes [id number] Inject Univer s ZAYDA 1-19 13,000 ity of INJECTION 11:37: Units [place] 16 directed Medical weekly. Branch Cholecalcif 2020-11 Yes 1000U Take 1,000 Univers naresh, 1-19 Units by ity of Vitamin D3, 11:37: mouth. [place] 25 mcg 16 Medical (1,000 Branch unit) capsule SERTraline 2020-11 Yes 50mg Take 1 Unive rs 50 mg 1-19 tablet by ity of tablet 00:00: mouth [place] 00 daily. Medical Branch SERTraline 2020-11 Yes 50mg Take 1 Unive rs 50 mg 1-19 tablet by ity of tablet 00:00: mouth [place] 00 daily. Medical Branch SERTraline 2020-11 Yes 50mg Take 1 Unive rs 50 mg 1-19 tablet by ity of tablet 00:00: mouth [place] 00 daily. Medical Branch SERTraline 2020-11 Yes 50mg Take 1 Unive rs 50 mg 1-19 tablet by ity of tablet 00:00: mouth [place] 00 daily. Medical Branch SERTraline 2020-11 Yes 50mg Take 1 Unive rs 50 mg 1-19 tablet by ity of tablet 00:00: mouth [place] 00 daily. Medical Branch SERTraline 2020-11 Yes 50mg Take 1 Unive rs 50 mg 1-19 tablet by ity of tablet 00:00: mouth [place] 00 daily. Medical Branch SERTraline 2020-11 Yes 50mg Take 1 Unive rs 50 mg 1-19 tablet by ity of tablet 00:00: mouth [place] 00 daily. Medical Branch SERTraline 2020-11 Yes 50mg Take 1 Unive rs 50 mg 1-19 tablet by ity of tablet 00:00: mouth [place] 00 daily. Medical Branch SERTraline 2020-11 Yes 50mg Take 1 Unive rs 50 mg 1-19 tablet by ity of tablet 00:00: mouth [place] 00 daily. Medical Branch SERTraline 2020-11 Yes 50mg Take 1 Unive rs 50 mg 1-19 tablet by ity of tablet 00:00: mouth [place] 00 daily. [facility] Branch SERTraline 2020-11 Yes 50mg Take 1 Unive rs 50 mg 1-19 tablet by ity of tablet 00:00: mouth [place] 00 daily. [facility] Branch SERTraline 2020-11 Yes 50mg Take 1 Unive rs 50 mg 1-19 tablet by ity of tablet 00:00: mouth [place] 00 daily. [facility] Branch SERTraline 2020-11 Yes 50mg Take 1 Unive rs 50 mg 1-19 tablet by ity of tablet 00:00: mouth [place] 00 daily. [facility] Branch SERTraline 2020-11 Yes 50mg Take 1 Unive rs 50 mg 1-19 tablet by ity of tablet 00:00: mouth [place] 00 daily. [facility] Branch SERTraline 2020-11 Yes 50mg Take 1 Unive rs 50 mg 1-19 tablet by ity of tablet 00:00: mouth [place] 00 daily. [facility] Branch SERTraline 2020-11 Yes 50mg Take 1 Unive rs 50 mg 1-19 tablet by ity of tablet 00:00: mouth [place] 00 daily. [facility] Branch sertraline 2019-11 Yes 50mg QD Take [...] 00 (two) l times a day. potassium 2019- No 20meq QD Take 20 Met hodi chloride 1-30 12-[address] (K-DUR) 20 00:00: 00:00 mouth Hospi ta MEQ CR 00 :00 daily. l tablet pantoprazol 2019- No 40mg Q2D Take 40 mg Methodi e 1-18 12-[address] (PROTONIX) 00:00: 00:00 every Hospi ta 40 MG EC 00 :00 other day. l tablet metoclopram 2018-11 Yes 1{tbl} Q.[id number] Take 1 Methodi yaw 2-[id number] (REGLAN) 5 00:00: 3D mouth [address] MG tablet 00 (three) l times a day. sevelamer Yes 800mg Q.[id number] 800 mg 3 Methodi (RENVELA) 9-18 [id number] (three) s t 800 mg 00:00: 3D times a Hospita tablet 00 day with l meals. epoetin 2020- No [id number] Q.25644099 Inject Methodi zayda-epbx 6-12 12- [id number] 13,000 s t 10,000 00:00: 00:00 3W Units Hospita unit/mL 00 :00 under the l solution skin 3 10,000 (three) Units, times a epoetin week. zayda-epbx 3,000 unit/mL solution 3,000 Units injection furosemide 2019-0 Yes 40mg Q2D Take 40 mg M ethodi (LASIX) 40 5-[address] mg tablet 00:00: every Hospita 00 other day. l furosemide 2019-0 Yes [id number] 40mg Take 1 Univers 40 mg 3-27 tablet by ity of tablet 00:00: mouth [place] 00 every Medical morning Branch and evening. furosemide 2019-0 Yes [id number] 40mg Take 1 Univers 40 mg 3-27 tablet by ity of tablet 00:00: mouth [place] 00 every Medical morning Branch and evening. furosemide 2019-0 Yes [id number] 40mg Take 1 Univers 40 mg 3-27 tablet by ity of tablet 00:00: mouth [place] 00 every Medical morning Branch and evening. furosemide 2019-0 Yes [id number] 40mg Take 1 Univers 40 mg 3-27 tablet by ity of tablet 00:00: mouth [place] 00 every Medical morning Branch and evening. furosemide 2019-0 Yes [id number] 40mg Take 1 Univers 40 mg 3-27 tablet by ity of tablet 00:00: mouth [place] 00 every Medical morning Branch and evening. furosemide 2019-0 Yes [id number] 40mg Take 1 Univers 40 mg 3-27 tablet by ity of tablet 00:00: mouth [place] 00 every Medical morning Branch and evening. furosemide 2019-0 Yes [id number] 40mg Take 1 Univers 40 mg 3-27 tablet by ity of tablet 00:00: mouth [place] 00 every Medical morning Branch and evening. furosemide 2019-0 Yes [id number] 40mg Take 1 Univers 40 mg 3-27 tablet by ity of tablet 00:00: mouth [place] 00 every Medical morning Branch and evening. furosemide 2019-0 Yes [id number] 40mg Take 1 Univers 40 mg 3-27 tablet by ity of tablet 00:00: mouth [place] 00 every Medical morning Branch and evening. furosemide 2019-0 Yes [id number] 40mg Take 1 Univers 40 mg 3-27 tablet by ity of tablet 00:00: mouth [place] 00 every Medical morning Branch and evening. furosemide 2019-0 Yes [id number] 40mg Take 1 Univers 40 mg 3-27 tablet by ity of tablet 00:00: mouth [place] 00 every Medical morning Branch and evening. furosemide 2019-0 Yes [id number] 40mg Take 1 Univers 40 mg 3-27 tablet by ity of tablet 00:00: mouth [place] 00 every Medical morning Branch and evening. furosemide 2019-0 Yes [id number] 40mg Take 1 Univers 40 mg 3-27 tablet by ity of tablet 00:00: mouth [place] 00 every Medical morning Branch and evening. furosemide 2019-0 Yes [id number] 40mg Take 1 Univers 40 mg 3-27 tablet by ity of tablet 00:00: mouth [place] 00 every Medical morning Branch and evening. furosemide 2019- Yes [id number] 40mg Take 1 Univers 40 mg 3-27 tablet by ity of tablet 00:00: mouth [place] 00 every Medical morning Branch and evening. furosemide 2019- Yes [id number] 40mg Take 1 Univers 40 mg 3-27 tablet by ity of tablet 00:00: mouth [place] 00 every Medical morning Branch and evening. febuxostat 2020- No [id number] 40mg Take 1 U nivers (ULORIC) 40 3-12 10-07 tablet by it y of mg tablet 00:00: 00:00 mouth [place] 00 :00 daily. Medical Branch metoprolol Yes 50mg Q.5D Take [address] (TOPROL-XL) 1-16 by mouth 2 Christina kes - 50 MG 24 hr 11:03: (two) Medic al tablet 15 times Center daily. atorvastati Yes 20mg QD Take [address] [facility] [facility] (LIPITOR) 1-16 by mouth Luke s - 40 MG 11:03: daily . Medical tablet 15 Center cholecalcif Yes 1000U QD Take 1,[address] naresh, 1-16 Units by [facility] - vitamin D3, 11:03: mouth Medic al 1,000 unit 15 daily. Center capsule doxazosin Yes 2mg Q.5D Take [address] [facility] (CARDURA) 2 1-16 by mouth 2 Christina kes - MG tablet 11:03: (two) Medical 15 times Center daily. sertraline 2019 Yes 25mg QD Take 25 mg C [...] mouth Medica l 24 hr 15 daily. [place] capsule calcitriol Yes .25ug QD Take 0.[address] (ROCALTROL) 1-16 mcg by [facility] - 0.25 MCG 11:03: mouth Medical capsule 15 daily. [place] aspirin 81 Yes 81mg QD Take [address] MG EC 1-16 by mouth [facility]ukes - tablet 11:03: daily. Medical 15 [place] fluticasone Yes 1{puff} Q.5D Inhale 1 [facility] [...] Immunizations Ordered Filled Immunization Date Status Comments [facility] e Immunization Name Name HEP B, Adult Dosage 2019-01-24 Completed Unive rsity of 00:00:00 [facility] Branch HEP B, Adult Dosage 2019-01-24 Completed Unive rsity of 00:00:00 [facility] Branch HEP B, Adult Dosage 2019-01-24 Completed Unive rsity of 00:00:00 [facility] Branch HEP B, Adult Dosage 2019-01-24 Completed Unive rsity of 00:00:00 [place] [facility] HEP B, Adult Dosage 2019-01-24 Completed Unive rsity of 00:00:00 [facility] Branch HEP B, Adult Dosage 2019-01-24 Completed Unive rsity of 00:00:00 [place] [facility] Branch HEP B, Adult Dosage 2019-01-24 Completed Unive rsity of 00:00:00 [facility] Branch HEP B, Adult Dosage 2019-01-24 Completed Unive rsity of 00:00:00 [facility] Branch HEP B, Adult Dosage 2019-01-24 Completed Unive rsity of 00:00:00 [facility] Branch HEP B, Adult Dosage 2019-01-24 Completed Unive rsity of 00:00:00 [place] [facility] HEP B, Adult Dosage 2019-01-24 Completed Unive rsity of 00:00:00 [place] [facility] HEP B, Adult Dosage 2019-01-24 Completed Unive rsity of 00:00:00 [place] [facility] HEP B, Adult Dosage 2019-01-24 Completed Unive rsity of 00:00:00 [place] [facility] HEP B, Adult Dosage 2019-01-24 Completed Unive rsity of 00:00:00 [place] [facility] HEP B, Adult Dosage 2019-01-24 Completed Unive rsity of 00:00:00 [place] [facility] HEP B, Adult Dosage 2019-01-24 Completed Unive rsity of 00:00:00 [place] [facility] HEP B, Adult Dosage 2018-12-27 Completed Unive rsity of 00:00:00 [place] [facility] HEP B, Adult Dosage 2018-12-27 Completed Unive rsity of 00:00:00 [place] [facility] HEP B, Adult Dosage 2018-12-27 Completed Unive rsity of 00:00:00 [place] [facility] HEP B, Adult Dosage 2018-12-27 Completed Unive rsity of 00:00:00 [place] [facility] HEP B, Adult Dosage 2018-12-27 Completed Unive rsity of 00:00:00 [place] [facility] HEP B, Adult Dosage 2018-12-27 Completed Unive rsity of 00:00:00 [place] [facility] HEP B, Adult Dosage 2018-12-27 Completed Unive rsity of 00:00:00 [place] [facility] HEP B, Adult Dosage 2018-12-27 Completed Unive rsity of 00:00:00 [place] [facility] HEP B, Adult Dosage 2018-12-27 Completed Unive rsity of 00:00:00 [place] [facility] HEP B, Adult Dosage 2018-12-27 Completed Unive rsity of 00:00:00 [place] [facility] HEP B, Adult Dosage 2018-12-27 Completed Unive rsity of 00:00:00 [place] [facility] HEP B, Adult Dosage 2018-12-27 Completed Unive rsity of 00:00:00 [place] [facility] HEP B, Adult Dosage 2018-12-27 Completed Unive rsity of 00:00:00 [place] [facility] HEP B, Adult Dosage 2018-12-27 Completed Unive rsity of 00:00:00 [place] [facility] HEP B, Adult Dosage 2018-12-27 Completed Unive rsity of 00:00:00 [facility] HEP B, Adult Dosage 2018-12-27 Completed Unive rsity of 00:00:00 [facility] Vital Signs Vital Name Observation Time Observation Value Comments Source Systolic blood 2021-10-07 14:06:00 110 mm[Hg] Univer sity of pressure [facility] Diastolic blood 2021-10-07 14:06:00 75 mm[Hg] Unive rsity of pressure [facility] Heart rate 2021-10-07 14:06:00 105 /min Universi ty [facility] Body temperature 2021-10-07 14:06:00 36.67 Sharifa [facility] 2021-10-07 14:06:00 16 /min [facility] Body height 2021-10-07 14:06:00 167.6 cm [facility] Body weight 2021-10-07 14:06:00 63.504 kg [facility] BMI 2021-10-07 14:06:00 22.60 kg/m2 [facility] Oxygen saturation in 2021-10-07 14:06:00 98 /min [facility] Arterial blood by [facility] Pulse oximetry Branch Systolic blood 2020-10-21 20:25:00 152 mm[Hg] Method ist [facility] pressure Diastolic blood 2020-10-21 20:25:00 77 mm[Hg] [facility] pressure Heart rate 2020-10-21 20:25:00 60 [facility] 2020-10-21 20:25:00 167.6 cm [facility] Body weight 2020-10-21 20:25:00 68.04 kg [facility] BMI 2020-10-21 20:25:00 24.21 kg/m2 [facility] Procedures Procedure Date / Time Performed Performing Clinician [place] da silva [place] MYOCARDIUM 2021-10-30 20:13:00 Jazlyn Fosterf [facility] PERFUSION STRESS AND Medical Bra nch REST NM MYOCARDIUM 2021-10-30 20:13:00 Mateo, Jazlynvinicio Ganf [facility] PERFUSION STRESS AND Medical Bra nch REST NM MYOCARDIUM 2021-10-30 20:13:00 Mateo Jazlyn [facility] PERFUSION STRESS AND Medical Bra nch REST NM MYOCARDIUM 2021-10-30 20:13:00 Jazlyn Foster [facility] PERFUSION STRESS AND Medical Bra nch REST ECG 12-LEAD 2020-10-22 21:59:06 Joe Guevara [facility] TTE COMPLETE, WO 2020-10-22 21:00:00 [facility] CONTRAST, W DOPPLER ([id number]) Plan of Care Planned Activity Planned Date Details Comments Source Future Scheduled 2020-09-[address] [facility] - Test 00:00:00 malignant neoplasm of [facility] breast (procedure) [code = 171761580] Future Scheduled 2020-07-16 INFLUENZA VACCINE (#1) [facility] Test 00:00:00 [code = INFLUENZA Medical Ce nter VACCINE (#1)] Future Scheduled 2019-11-[address] [facility] - Test 00:00:00 malignant neoplasm of [facility] colon (procedure) [code = 791423989] Future Scheduled 2017-10-[address] [facility] - Test 00:00:00 WELLNESS (YEAR 2 or Medical Center FIRST YEAR if no IPPE) [code = MEDICARE ANNUAL WELLNESS (YEAR 2 or FIRST YEAR if no IPPE)] Future Scheduled 2016 PNEUMOCOCCAL 65+ Y[facility] - Test 00:00:00 (1 of 1 - Medical Center [id number] PCV13) [code = PNEUMOCOCCAL 65+ YRS (1 of 1 - [id number] PCV13)] Future Scheduled COVID-19 [facility]INE ([facility] [code = COVID-19 VACCINE (1)] Future Scheduled BREAST CANCER [facility] Test SCREENING [code = BREAST CANCER [...] Date/Time Type Type Clinicians Facility Department ID 2021-12-08 2021-12-08 Outpatient R [facility] [id number] - Univers 07:00:00 07:00:00 [id number] ity of [facility] 2021-12-08 2021-12-08 Outpatient R LILIANADAYDAYTimothy [facility] [id number] Univers 07:00:00 07:00:00 PRIYANKA [facility] ity of [facility] 2021-11-17 2021-11-17 [facility]phone [facility] 1.2.840.114 [id number] Univers 00:00:00 00:00:00 Fidel Arias MULTISPEC [id number] ity of I[place] 4.2[place].2.[place] [id number] [address] DIABETES CLINIC 2021-11-17 2021-11-17 [facility]phone [facility] [id number] Univers 00:00:00 00:00:00 Fidel Arias MULTISPEC [id number] ity [place] 4[place]2.[place] [id number] [address] DIABETES CLINIC 2021 2021 Telephone OSORIO Gramajo 1.2.840.114 [id number] Univers 00:00:00 00:00:00 [facility] [id number] ity of [facility] 4.2.7.2.686 [place] [id number] [address] 2021 2021 Telephone [facility] 1.2.840.114 [id number] Univers 00:00:00 00:00:00 [facility] [id number] ity of [place].2.[place] [id number] [address] OFFICE BUILDING 2021-11-03 2021-11-03 Telephone [facility] 1.2.840.114 [id number] Univers 00:00:00 00:00:00 [facility] [id number] ity of [place] [id number] [address] OFFICE BUILDING 2021-10-31 2021-10-31 Telephone [facility] 1.2.840.114 [id number] Univers 00:00:00 00:00:00 Parra A MULTISPEC 350.1.13.10 ity of [place] 4.2.[place].2.[place] [id number] [address] DIABETES CLINIC 2021-10-31 2021-10-31 Telephone [facility] 1.2.840.114 [id number] Univers 00:00:00 00:00:00 Parra A MULTISPEC 350.1.13.10 ity [place] 4.2.7.2.[place] [id number] [address] DIABETES CLINIC 2021-10-30 2021-10-30 [facility] [id number] Univers 11:44:11 23:59:00 Encounter Jazlyn Torres SPECIALTY 350.1.13.10 ity of C[place] 4.2.7.2.[place] AT [id number] [address] 2021-10-30 2021-10-30 [facility] [id number] Univers 11:43:52 11:43:52 Encounter Jazlyn Torres SPECIALTY 350.1.13.10 ity of CARE 4.2.7.2.[place] AT [id number] Al boni[address] 2021-10-30 2021-10-30 [facility] [id number] Univers 11:43:29 11:43:29 Encounter Jazlyn Torres SPECIALTY 350.1.13.10 ity of CARE 4.2.7.2.[place] AT [id number] Al boni[address] 2021-10-30 2021-10-30 Outpatient R [facility] [id number] Univers 11:42:41 11:42:41 JAZLYN ity of [facility] 2021-10-30 2021-10-30 [facility] [id number] Univers 11:42:41 11:42:41 Encounter Jazlyn Torres SPECIALTY 350.1.13.10 ity of C[place] 4.2.7.2.[place] AT [id number] Al dav SANZ 805 [facility] 2021-10-30 2021-10-30 Telephone [facility] 1.2.840.114 [id number] Univers 00:00:00 00:00:00 Parra A MULTISPEC 350.1.13.10 ity of [place] 4.2[place].2.[place] [id number] [address] DIABETES CLINIC 2021-10-21 2021-10-21 Telephone [facility] 1.2.840.114 [id number] Univers 00:00:00 00:00:00 Jazlyn Torres MULTISPEC 350.1.13.10 ity [place] 4.2[place].2.[place] [id number] [address] DIABETES CLINIC 2021-10-20 2021-10-20 Committee Billy [facility] 1.2.840.114 [id number] Univers 00:00:00 00:00:00 Review Ynes goodwin MULTISPEC 350.1.13.10 ity [place] 4.2.7.2.[place] [id number] [address] DIABETES CLINIC 2021-10-15 2021-10-15 Telephone [facility] 1.2.840.114 [id number] Univers 00:00:00 00:00:00 Parra A MULTISPEC 350.1.13.10 ity [place] 4.2.7.2.[place] [id number] [address] DIABETES CLINIC 2021-10-07 2021-10-07 Office Michael Guillen [facility] 1.2.840.1 [id number] Univers 07:57:43 08:37:36 Visit Raymundo, Ivett Tiara MULTISPEC 350.1.1 3.10 ity of [place] 4.2.7.2.686 [place] [id number] [facility] AND DIAZ 0[address] Branch DIABETES CLINIC 2021-06-02 2021-06-02 Orders [facility] 1.2.840.114 [id number] 00:00:00 00:00:00 Only [place]ra A MULTISPEC 350.1.13.10 IALTY 4.2.7.2.686 [place] [id number] AND DIAZ 312 [facility] 2021-05-29 2021-05-29 Telephone [facility] 1.2.840.114 [id number] 00:00:00 00:00:00 Parra A MULTISPEC 350.1.13.10 IALTY 4.2.7.2.686 [place] [id number] AND DIAZ 312 [facility] 2021-05-28 2021-05-28 Telephone [facility] 1.2.840.114 [id number] 00:00:00 00:00:00 Parra A MULTISPEC 350.1.13.10 IALTY 4.2.7.2.686 [place] [id number] AND DIAZ 312 [facility] 2021-05-26 2021-05-26 Committee [facility] 1.2.840.114 [id number] 00:00:00 00:00:00 Review Parra A MULTISPEC 350.1.13.10 IALTY 4.2.7.2.686 [place] [id number] AND JOE 312 [facility]ES [facility]IN[facility] 2021-05-26 2021-05-26 [facility] 1.2.840.114 [id number] 00:00:00 00:00:00 Management Kat Peña MULTISPEC 350.1.13.10 IALTY 4.2.7.2.686 [place] [id number] AND JOE 189 DI[facility]ETES CLINIC 2021-05-14 2021-05-14 [facility] 1.2.840.114 [id number] 09:18:12 23:59:00 Encounter Ynes goodwin 350.1.13.10 [place] 4.2.7.2.686 [place] [id number] 2021-04-21 2021-04-21 Orders Doctor NESS 1.2.840.114 [id number] 00:00:00 00:00:00 Only Unassigned, JACQUIE 350.1.13.10 [facility] 4.2.7.2.686 [id number] 2021-03-05 2021-03-05 Office [facility] 1.2.840.114 [id number] 12:28:23 15:45:06 Visit Jazlyn Torres MULTISPEC 350.1.13.10 IALTY 4.2.7.2.686 [place] [id number] [facility] [place] 2021-01-14 2021-01-14 Orders Doctor NESS 1.2.840.114 [id number] 00:00:00 00:00:00 Only Unassigned, JACQUIE 350.1.13.10 [place] [facility] 4.2.7.2.686 [id number] [id number] 2020-12-19 2020-12-19 Telephone Julio, 1.2.840.1 [id number] Methodi 00:00:00 00:00:[address] 3.430.2.7 Hospit a .3.554692 l .8 2020-10-22 2020-10-22 Multidisci Little, 1.2.840.1 [id number] Methodi 14:52:35 16:10:45 plkylah Berger 01790.1.1 508 s t Visit 3.430.2.7 Hospit a .3.501280 l .8 2020-10-22 2020-10-22 Travel 1.2.840.1 1.2.478.729 [id number] Methodi 00:00:00 00:00:[address] 3.430.2.7 0.2.7.3.698 Ho spita .3.442870 084.8 l .8 2020-10-21 2020-10-21 Travel 1.2.840.1 1.2.677.810 [id number] Methodi 00:00:00 00:00:[address] 3.430.2.7 0.2.7.3.698 grabielta .3.995790 084.8 l .8 Results Test Description Test Time Test Comments Results Result Comments Source ECG 12 lead 2020-10-23 15:07:40 Test Item Value Reference Range Interpretation Comme nts Ventricular rate (test code = 253) Atrial rate (test code = 255) CT interval (test code = 266) QRSD interval [...] significant change was found- [facility] [id number] 16:29:00 Test Item Value Reference Range Interpretation Comments CULTURE (BEAKER) (test >100,000 col/mL skin code = 1095) stanley CYTOMEGALOVIRUS ANTIBODY, [id number] 12:23:00 Test Item Value Reference Range Interpretation Comments CYTOMEGALOVIRUS IGM ANTIBODY Negative Negative, Equivocal (BEAKER) (test code = 3437) CMV IgM Result Interpretation: </= 0.8 Al Negative 0.9-1.0 Al Equivocal >/= 1.1 Al PositiveCYTOMEGALOVIRUS ANTIBODY, [id number] 12:18:00 Test Item Value Reference Range Interpretation Comments CYTOMEGALOVIRUS, IGG (BEAKER) Positive Negative, Equivocal A (test code = 3429) CMV IgG Result Interpretation: </= 0.8 Al Negative 0.9-1.0 Al Equivocal >/=1.1 Al PositiveEBV ANTIBODY, [id number] 12:18:00 Test Item Value Reference Range Interpretation Comments LAUREEN WEBSTER VIRAL CAPSID Positive Negative, Equivocal A ANTIGEN IGG (BEAKER) (test code = 3415) Laureen Webster Viral Capsid Antigen IgG Result Interpretation: </= 0.8 Al Negative 0.9-1.0 Al Equivocal >/= 1.1 Al PositiveCARDIOLIPIN ANTIBODIES, IGG AND [id number] 12:18:00 Test Item Value Reference Range Interpretation Comments ANTICARDIOLIPIN IGG ANTIBODY (BEAKER) < GPL <20.0 (test code = 712) ANTICARDIOLIPIN IGM ANTIBODY (BEAKER) < MPL <20.0 (test code = 713) Anticardiolipin IgG Result Interpretation: <20.0 GPL Normal>/= 20.0 GPL PositiveAnticardiolipin IgM Result Interpretation: <20.0 MPL Normal>/= 20.0 MPL PositiveDOUBLE-STRANDED DNA (DSDNA) [id number] 11:08:00 Test Item Value Reference Range Interpretation Comments ANTI-DNA DS (BEAKER) (test code = Negative 1055) EBV ANTIBODY, [id number] 10:52:00 Test Item Value Reference Range Interpretation Comments LAUREEN WEBSTER VIRAL CAPSID Negative Negative, Equivocal ANTIGEN IGM (BEAKER) (test code = 3418) Laureen Webster Viral Capsid Antigen IgM Result Interpretation: </= 0.8 Al Negative 0.9-1.0 Al Equivocal >/= 1.1 Al PositiveVARICELLA ZOSTER ANTIBODY, [id number] 10:52:00 Test Item Value Reference Range Interpretation Comments VARICELLA ZOSTER IGG (AL) (BEAKER) 7.3 (test code = 3197) VARICELLA ZOSTER RESULT INTERPRETATIONS: <=0.8 Al Nonreactive: Presumed non-immune to VZV 0.9-1.0 Al Equivocal >=1.1 Al Reactive: Presumed immune to [id number] 13:57:00 Test Item Value Reference Range Interpretation Comments RPR SCREEN (BEAKER) (test code = Nonreactive Nonreactive 420) 1:1 MIXING STUDY, [id number] 11:12:00 Test Item Value Reference Range Interpretation Comments PROTIME (BEAKER) (test code = 13.8 seconds 11.7-14.7 759) PARTIAL THROMBOPLASTIN TIME 31.6 seconds 22.5-36.0 (BEAKER) (test code = 760) PT 1/1 MIX (BEAKER) (test code = 13.5 SECS 11.7-14.7 1595) PTT 1/1 MIX (BEAKER) (test code 31.9 SECS 22.5-36.0 = 1596) HEPATITIS B SURFACE [id number] 10:16:00 Test Item Value Reference Range Interpretation Comments HEPATITIS B SURFACE ANTIBODY < mIU/mL <8.0 (BEAKER) (test code = 647) HEPATITIS B SURFACE [id number] 09:48:00 Test Item Value Reference Range Interpretation Comments HEPATITIS B SURFACE ANTIGEN (2) Nonreactive Nonreactive (BEAKER) (test code = 2585) HEPATITIS B CORE ANTIBODY, [id number] 09:48:00 Test Item Value Reference Range Interpretation Comments HEPATITIS B CORE IGM ANTIBODY Nonreactive Nonreactive (BEAKER) (test code = 645) HEPATITIS C [id number] 09:42:00 Test Item Value Reference Range Interpretation Comments HEPATITIS C ANTIBODY (BEAKER) Nonreactive Nonreactive (test code = 367) HIV-1 ANTIGEN WITH HIV-1/2 [id number] 09:42:00 Test Item Value Reference Range Interpretation Comments HIV-1 ANTIGEN WITH HIV 1\T\2 Nonreactive Nonreactive ANTIBODY (2) (BEAKER) (test code = 2586) HEMOGLOBIN [id number] 09:33:00 Test Item Value Reference Range Interpretation Comments HEMOGLOBIN A1C (BEAKER) (test code = 5.2 % 4.3-6.1 368) COMPLEMENT COMPONENT [id number] 09:29:00 Test Item Value Reference Range Interpretation Comments C4 COMPLEMENT (BEAKER) (test code = 39 mg/dL 15-57 394) COMPLEMENT COMPONENT [id number] 09:29:00 Test Item Value Reference Range Interpretation Comments C3 COMPLEMENT (BEAKER) (test code = 82 mg/dL 82-193 393) COMPREHENSIVE METABOLIC [id number] 09:29:00 Test Item Value Reference Range Interpretation [...] NOT APPLICABLE FOR DIALYSIS PATIEN TS. URIC [id number] 09:25:00 Test Item Value Reference Range Interpretation Comments URIC ACID (BEAKER) (test code = 10.3 mg/dL 2.6-7.2 H 773) [id number] 09:25:00 Test Item Value Reference Range Interpretation [...] U/L 125-220 H code = 635) PTH, [id number] 09:19:00 Test Item Value Reference Range Interpretation Comments PARATHYROID HORMONE INTACT 315.4 pg/mL 8.5-72.5 H (BEAKER) (test code = 577) URINALYSIS W/ [id number] 09:08:00 Test Item Value Reference Range Interpretation [...] = 516) SOURCE(BEAKER) (test code = 2795) [id number] 08:58:00 Test Item Value Reference Range Interpretation [...] % 0-1 PERCENT (BEAKER) (test code = 7781)
[2022-02-17 07:49] LABS: Absolute Lymphocytes (CBC) 0.4 K/uL (0.7-4.9); Hematocrit 25.7 % (36.0-45.0); Lymphocytes % 9.9 % (15.3-44.8); MPV 9.8 fL (7.6-11.3); RBC Red Blood Cell Count 2.76 M/uL (3.86-4.86)
--- NOTE | 2022-02-17 08:28 | EKG ---
Test Date: 2022-02-17 Test Time: 07:01:25 Body Make Up Artist: JOHN MEASUREMENT RESULTS: Intervals: Rate: 85 IL: 202 QRSD: 190 QT: 496 QTc: 590 [place]: P: 91 IL: 202 QRS: -65 T: 81 INTERPRETIVE STATEMENTS: Atrial-sensed ventricular-paced rhythm Abnormal ECG Compared to ECG 08/21/2021 11:37:48 No significant changes Electronically Signed On 02-17-22 08:27:44 CDT by Matthew Braden
[2022-02-17 08:33] LABS: Blood Morphology Comment NOT SEEN (NOT SEEN); Platelet Estimate DECR; White Blood Cell Scan OK (OK)
--- NOTE | 2022-02-17 09:01 | RAD REPORT ---
EXAM DESCRIPTION: Dolly Single View02/17/2022 8:11 am CLINICAL HISTORY: Chest pain COMPARISON: 2020 FINDINGS: The lungs appear clear of acute infiltrate. The heart is mildly to moderately enlarged. P acemaker leads are in place. Postsurgical changes involve the chest IMPRESSION: No acute abnormalities displayed
[2022-02-17 09:28] LABS: ALT/SGPT 52 U/L (12-78); AST/SGOT 53 U/L (15-37); Albumin 2.1 g/dL (3.4-5.0); Alkaline Phosphatase 225 U/L (45-117); BUN Blood Urea Nitrogen 75 mg/dL (7-18); Bicarbonate 22 mmol/L (21-32); Bilirubin Total 0.4 mg/dL (0.2-1.0); Glucose Level 104 mg/dL (74-106); Magnesium 1.9 mg/dL (1.8-2.4); Protein, Total 5.3 g/dL (6.4-8.2); Sodium Level 130 mmol/L (136-145); Troponin High Sensitivity 412.9 pg/mL (<58.9)
[2022-02-17 09:31] LABS: NT PRO-BNP > 175000 pg/mL (<125)
[2022-02-17 09:33] LABS: Potassium 2.4 mmol/L (3.5-5.1)
--- NOTE | 2022-02-17 09:43 | EDPHYS ---
Physician Documentation [facility] Name: Cheyanne Haywood Age: 71 yrs Sex: Female : 1950 Arrival Date: 02/17/2022 Time: 06:43 Bed 17 Private MD: ED Physician Cherri Ding HPI: 02/17 07:44 This 71 yrs old Female presents to ER via EMS with complaints of Chest pain. sp3 07:44 71-year-old female with a history of hypertension, end-stage renal disease on nightly sp3 peritoneal dialysis, lupus, aortic valve disease status post replacement x2, who presents to the ED with chest pain that started approximately 5 AM today that awoke her from her sleep. Patient states that the pain was left-sided and sharp and resolved with nitroglycerin and aspirin administration by EMS. Patient's pain is now fully resolved. She denies shortness of breath, back pain, abdominal pain, fever, syncope, near syncope, or any other signs or symptoms on ROS at this time. Patient's aortic valve was last replaced in 2015. Patient also had a heart catheterization in November 2021 which did not need any intervention but patient states that her nephrology social worker (Dr. Aragon) told her that "she may need a stent in the future".. Historical: - Allergies: 07:05 No Known Allergies; sm5 - Home Meds: 07:00 aspirin 81 mg Oral chew once daily [Active]; atorvastatin 40 mg Oral tab 0.5 tab once sm5 daily [Active]; calcitriol 0.25 mcg Oral cap [Active]; Cartia XT 240 mg Oral cp24 1 cap once daily for Hypertension [Active]; hydroychloroquine sulfate 200mg [Active]; Lasix 80 mg Oral tab 1 tab 2 times per day [Active]; metoprolol tartrate 50 mg Oral tab 1 tab 2 times per day [Active]; midodrine Oral [Active]; sertraline 25 mg Oral tab 1 tab once daily [Active]; - PMHx: 07:00 Depression; ESRD; Hypertension; kidney problems; Lupus; PD- nightly; PERITONEAL sm5 DIALYSIS; - PSHx: 07:00 Aortia repair; TAVR; Pacemaker Placement; sm5 - Immunization history:: Client reports receiving the 2nd dose of the Covid vaccine, Pneumococcal vaccine is up to date, Flu vaccine is up to date. - Social history:: Smoking status: Patient denies any tobacco usage or history of. ROS: 07:45 Constitutional: Negative for fever, chills, and weight loss, Eyes: Negative for injury, sp3 pain, redness, and discharge, ENT: Negative for injury, pain, and discharge, Neck: Negative for injury, pain, and swelling, Respiratory: Negative for shortness of breath, cough, wheezing, and pleuritic chest pain, Abdomen/GI: Negative for abdominal pain, nausea, vomiting, diarrhea, and constipation, Back: Negative for injury and pain, MS/Extremity: Negative for injury and deformity, Skin: Negative for injury, rash, and discoloration, Neuro: Negative for headache, weakness, numbness, tingling, and seizure, Psych: Negative for depression, anxiety, suicide ideation, homicidal ideation, and hallucinations, Allergy/Immunology: Negative for hives, rash, and allergies, Endocrine: Negative for neck swelling, polydipsia, polyuria, polyphagia, and marked weight changes. 07:45 All other systems are negative. Exam: 07:46 Constitutional: This is a well developed, well nourished patient who is awake, alert, sp3 and in no acute distress. Head/Face: Normocephalic, atraumatic. Eyes: Pupils equal round and reactive to light, extra-ocular motions intact. Lids and lashes normal. Conjunctiva and sclera are non-icteric and not injected. Cornea within normal limits. Periorbital areas with no swelling, redness, or edema. ENT: Nares patent. No nasal discharge, no septal abnormalities noted. External auditory canals are clear. Oropharynx with no redness, swelling, or masses, exudates, or evidence of obstruction, uvula midline. Mucous membranes moist. Neck: Trachea midline, no thyromegaly or masses palpated, and no cervical lymphadenopathy. Supple, full range of motion without nuchal rigidity, or vertebral point tenderness. No Meningismus. Chest/axilla: Normal chest wall appearance and motion. Nontender with no deformity. No lesions are appreciated. Cardiovascular: Regular rate and rhythm with a normal S1 and S2. No gallops, murmurs, or rubs. Normal PMI, no JVD. No pulse deficits. Respiratory: Lungs have equal breath sounds bilaterally, clear to auscultation and percussion. No rales, rhonchi or wheezes noted. No increased work of breathing, no retractions or nasal flaring. Abdomen/GI: Soft, non-tender, with normal bowel sounds. No distension or tympany. No guarding or rebound. No evidence of tenderness throughout. Back: No spinal tenderness. No costovertebral tenderness. Full range of motion. Skin: Warm, dry with normal turgor. Normal color with no rashes, no lesions, and no evidence of cellulitis. MS/ Extremity: Pulses equal, no cyanosis. Neurovascular intact. Full, normal range of motion. Neuro: Awake and alert, GCS 15, oriented to person, place, time, and situation. Cranial nerves II-XII grossly intact. Motor strength 5/5 in all extremities. Sensory grossly intact. Cerebellar exam normal. Normal gait. Psych: Awake, alert, with orientation to person, place and time. Behavior, mood, and affect are within normal limits. 07:46 ECG was reviewed by the Attending Physician. EKG demonstrates paced rhythm without any visual abnormalities. Vital Signs: 06:58 BP 125 / 70; Pulse 89; Resp 18; Temp 98(O); Pulse Ox 100% on R/A; Weight 63.05 kg; sm5 Height 5 ft. 6 in. (167.64 cm); Pain 3/10; 07:30 BP 105 / 64; Pulse 82; Resp 17; Pulse Ox 98% on R/A; thao 08:00 BP 100 / 67; Pulse 82; Resp 17; Pulse Ox 98% on R/A; thao 08:30 BP 112 / 72; Pulse 84; Resp 17; Pulse Ox 100% on R/A; thao 09:00 BP 95 / 59; Pulse 82; Resp 17; Pulse Ox 100% ; thao 10:22 BP 103 / 58; Pulse 81; Resp 17; Pulse Ox 98% on R/A; thao 11:00 BP 119 / 71; Pulse 81; Resp 17; Pulse Ox 100% on R/A; thao 12:00 BP 94 / 61; Pulse 82; Resp 17; Pulse Ox 98% on R/A; thao 06:58 Body Mass Index 22.43 (63.05 kg, 167.64 cm) 5 MDM: 07:25 Patient medically screened. sp3 07:46 Data reviewed: vital signs, nurses notes. ED course: 71-year-old female with multiple sp3 comorbidities including end-stage renal disease, hypertension, prior ejection fraction of 25%, and aortic valve disease presents with chest pain. Patient's heart score based on her prior history likely warrants 23-hour observation. Ultimate disposition based on patient course and patient data.. 09:41 ED course: Plan at 400+ but given her dialysis it is unknown whether it is a true sp3 positive. Chest pain is still fully resolved. Will place patient in 23 observation and consult cardiology and trend troponins.. 02/17 07:09 Order name: CBC with Diff; Complete Time: 08:35 sp3 02/17 07:09 Order name: Magnesium; Complete Time: 09:36 sp3 02/17 07:09 Order name: NT PRO-BNP; Complete Time: 09:36 sp3 02/17 07:09 Order name: Troponin HS; Complete Time: 09:36 sp3 02/17 07:09 Order name: CMP; Complete Time: 09:36 sp3 02/17 07:54 Order name: CBC Smear Scan; Complete Time: 08:35 EDMS 02/17 07:09 Order name: XRAY Chest (1 view); Complete Time: 09:05 sp3 02/17 07:09 Order name: EKG; Complete Time: 07:09 sp3 02/17 09:49 Order name: SARS-COV-2 RT PCR (Document "Date of Onset" if Symptomatic) 02/17 11:12 Order name: Angio Aorta For Dissection EDSC 02/17 07:09 Order name: Cardiac monitoring; Complete Time: 07:22 sp3 02/17 07:09 Order name: EKG - Nurse/Tech; Complete Time: 07:22 sp3 02/17 07:09 Order name: IV Saline Lock; Complete Time: 07:22 sp3 02/17 07:09 Order name: Labs collected and sent; Complete Time: 07:36 sp3 02/17 07:09 Order name: O2 Per Protocol; Complete Time: 07:22 sp3 02/17 07:09 Order name: O2 Sat Monitoring; Complete Time: 07:22 sp3 02/17 08:04 Order name: Labs - recollect needed: recollect c7; Complete Time: 08:53 bd Administered Medications: 11:50 Drug: Nitroglycerin 0.4 mg Route: Sublingual; ll1 12:08 Follow up: Response: No adverse reaction thao 13:18 Drug: Potassium Chloride 40 mEq Route: PO; thao 13:18 Follow up: Response: No adverse reaction thao Disposition Summary: 02/17/22 09:42 Hospitalization Ordered Hospitalization Status: Observation sp3 Provider: Dorian Cormier sp3 Condition: Stable sp3 Problem: an acute exacerbation sp3 Symptoms: are unchanged sp3 Bed/Room Type: Standard sp3 Location: Telemetry/MedSurg (observation)(02/17/22 14:54) bd Room Assignment: 409(02/17/22 14:54) bd Diagnosis - Chest pain, unspecified sp3 Forms: - Medication Reconciliation Form sp3 - SBAR form sp3 Signatures: Dispatcher [employer] EDMS Amanda Fountain Irene RN DEBORAH iw Bryan, Oniel RN RN ll1 Cherri Ding MD MD sp3 Ursula Currie RN [facility] EneidaStageRachelle carroll RN RN thao Corrections: (The following items were deleted from the chart) 11:12 10:55 Abdomen Angio+CT.RAD.BRZ ordered. EDMS EDMS 11:12 10:56 Pelvis Angio+CT.RAD.BRZ ordered. EDMS EDMS 13:13 09:42 Telemetry/MedSurg (observation) sp3 iw 13:13 09:42 sp3 iw 14:54 13:13 [facility] ER HOLD iw bd 14:54 13:13 ERHOLD- iw bd
--- NOTE | 2022-02-17 09:43 | ER ---
Nurse's Notes [facility] Name: Cheyanne Haywood Age: 71 yrs Sex: Female : 1950 Arrival Date: 02/17/2022 Time: 06:43 Bed 17 Private MD: Diagnosis: Chest pain, unspecified Presentation: 02/17 06:58 Chief complaint: EMS states: pt started her peritoneal dialysis last night, developed L sm5 sided chest pain radiating to her L arm. still needs to be drained from dialysis. ems gave 324 of aspirin and 1 nitro. pt stating chest pain is better, now nauseas. Coronavirus screen: Vaccine status: Patient reports receiving the 2nd dose of the covid vaccine. Ebola Screen: No symptoms or risks identified at this time. Initial Sepsis Screen: Does the patient meet any 2 criteria? No. Patient's initial sepsis screen is negative. Does the patient have a suspected source of infection? No. Patient's initial sepsis screen is negative. Risk Assessment: Do you want to hurt yourself or someone else? Patient reports no desire to harm self or others. Onset of symptoms was February 17, 2022. 06:58 Method Of Arrival: EMS: [place] [id number] 06:58 Acuity: NORMA 3 sm5 Triage Assessment: 07:01 General: Appears in no apparent distress. Behavior is cooperative. Pain: Complains of sm5 pain in chest and left arm. Neuro: No deficits noted. Level of Consciousness is awake, alert, obeys commands, Oriented to person, place, time, situation. Cardiovascular: Reports chest pain, vomiting, Capillary refill < 3 seconds Patient's skin is warm and dry. Rhythm is atrial pacer. Respiratory: No deficits noted. Airway is patent Trachea midline Respiratory effort is even, unlabored. Historical: - Allergies: 07:05 No Known Allergies; sm5 - Home Meds: 07:00 aspirin 81 mg Oral chew once daily [Active]; atorvastatin 40 mg Oral tab 0.5 tab once sm5 daily [Active]; calcitriol 0.25 mcg Oral cap [Active]; Cartia XT 240 mg Oral cp24 1 cap once daily for Hypertension [Active]; hydroychloroquine sulfate 200mg [Active]; Lasix 80 mg Oral tab 1 tab 2 times per day [Active]; metoprolol tartrate 50 mg Oral tab 1 tab 2 times per day [Active]; midodrine Oral [Active]; sertraline 25 mg Oral tab 1 tab once daily [Active]; - PMHx: 07:00 Depression; ESRD; Hypertension; kidney problems; Lupus; PD- nightly; PERITONEAL 5 DIALYSIS; - PSHx: 07:00 Aortia repair; TAVR; Pacemaker Placement; 5 - Immunization history:: Client reports receiving the 2nd dose of the Covid vaccine, Pneumococcal vaccine is up to date, Flu vaccine is up to date. - Social history:: Smoking status: Patient denies any tobacco usage or history of. Screenin:02 Abuse screen: Denies threats or abuse. Denies injuries from another. Nutritional 5 screening: No deficits noted. Tuberculosis screening: No symptoms or risk factors identified. Fall Risk IV access (20 points). Total Bales Fall Scale indicates No Risk (0-24 pts). Assessment: 07:23 Pain: Complains of pain in chest. thao 07:23 Cardiovascular: Reports chest pain, nausea, shortness of breath, Chest pain quality is thao sharp. Vital Signs: 06:58 BP 125 / 70; Pulse 89; Resp 18; Temp 98(O); Pulse Ox 100% on R/A; Weight 63.05 kg; 5 Height 5 ft. 6 in. (167.64 cm); Pain 3/10; 07:30 BP 105 / 64; Pulse 82; Resp 17; Pulse Ox 98% on R/A; thao 08:00 BP 100 / 67; Pulse 82; Resp 17; Pulse Ox 98% on R/A; thao 08:30 BP 112 / 72; Pulse 84; Resp 17; Pulse Ox 100% on R/A; thao 09:00 BP 95 / 59; Pulse 82; Resp 17; Pulse Ox 100% ; thao 10:22 BP 103 / 58; Pulse 81; Resp 17; Pulse Ox 98% on R/A; thao 11:00 BP 119 / 71; Pulse 81; Resp 17; Pulse Ox 100% on R/A; thao 12:00 BP 94 / 61; Pulse 82; Resp 17; Pulse Ox 98% on R/A; thao 06:58 Body Mass Index 22.43 (63.05 kg, 167.64 cm) [facility] ED Course: 06:43 Patient arrived in ED. mw2 06:58 Ursula Currie, RN is Primary Nurse. [facility] 07:00 Triage completed. 5 07:02 Arm band placed on right wrist. EKG completed in triage. Results shown to MD. 5 07:02 Patient has correct armband on for positive identification. Bed in low position. Call [facility] light in reach. Side rails up X2. traffic monitor specialist on. Pulse ox on. NIBP on. 07:03 Cherri Ding MD is Attending Physician. sp3 07:23 No provider procedures requiring assistance completed. Maintain EMS IV. Gauge \T\ site: thao 22g right wrist. 08:01 X-ray completed. Portable x-ray completed in exam room. Patient tolerated procedure 1 well. 08:13 XRAY Chest (1 view) In Process Unspecified. EDMS 09:42 Dorian Cormier is Hospitalizing Provider. sp3 11:22 Angio Aorta For Dissection In Process Unspecified. EDMS Administered Medications: 11:50 Drug: Nitroglycerin 0.4 mg Route: Sublingual; ll1 12:08 Follow up: Response: No adverse reaction thao 13:18 Drug: Potassium Chloride 40 mEq Route: PO; thao 13:18 Follow up: Response: No adverse reaction thao Outcome: 09:42 Decision to Hospitalize by Provider. sp3 15:41 Patient left the ED. iw Signatures: Dispatcher [employer] EDMS Becca Rizo 1 Joelle Harvey, RN RN Momo Mathis 2 Oniel Adams, DEBORAH RN ll1 Cherri Ding MD MD sp3 Ursula Currie, RN DEBORAH 5 Rachelle Mckeon RN RN thao
--- NOTE | 2022-02-17 11:47 | RAD REPORT ---
EXAM DESCRIPTION: CT - Angio Aorta For Dissection - 02/17/2022 11:21 am CLINICAL HISTORY: . Chest and abd pain COMPARISON: 2020 TECHNIQUE: Computed tomography angiography of the chest, abdomen pelvis were obtained. 100 cc Isovue 370 was administered intravenously. Coronal and sagittal reconstruction were performed. MIP 3D reconstruction was performed All CT scans are performed using dose optimization technique as appropriate and may include automated exposure control or mA/KV adjustment according to patient size. FINDINGS: A stent has been placed into the ascending thoracic aorta. A 3 centimeter aneurysm which a rises from the posterior left aspect of the proximal thoracic ascending aorta is without significant change. An aortic dissection is not visualized. The celiac, SMA and MARIA ESTHER are patent . A lung consolidation is not present. A pericardial effusion is not seen. A pleural effusion is not no tamra. The kidneys are small. Calcified uterine fibroid. Moderate amount of ascites. Peritoneal dialysis cat heter present No evidence of diverticulitis IMPRESSION: Negative for an aortic dissection. Ascending thoracic aortic stent Stable ascending thoracic aortic aneurysm Moderate amount of ascites
[2022-02-17] MEDS ORDERED: NITROGLYCERIN 0.4 MG/TAB SL ONE (11:52)
--- NOTE | 2022-02-17 11:59 | P.HP ---
Certification for Inpatient Patient admitted to: Inpatient With expected LOS: >2 Midnights Practitioner: I am a practitioner with admitting privileges, knowledge of patient current condition, hospital course, and medical plan of care. Services: Services provided to patient in accordance with Admission requirements found in Title 42 Section 412.3 of the Code of Federal Regulations Patient History Date of Service: 02/17/22 Reason for admission: Chest pain History of Present Illness: 71-year-old woman with a history of multiple comorbidities including coronary artery disease, pacemaker placement, thoracic aortic aneurysm aortic valve replacement, end-stage renal disease on peritoneal dialysis presented to the emergency department with a complaint of chest pain of onset this morning. Patient describes severe chest pain which was relieved with nitroglycerin given by EMS in route to the ED. She continues to experience intermittent chest pain and needed multiple doses of nitroglycerin. CT dissection done in the ED demonstrated 3 cm aortic aneurysm which is unchanged from previous, stent in the ascending aorta, no dissection. Troponin initially elevated to 413. Patient with hypokalemia. EKG nondiagnostic due to paced rhythm. Patient with multiple CAD risk factors presenting with intermittent chest pain. She is diagnosed with NSTEMI, unstable angina and admitted for further management. Allergies No Known Drug Allergies Allergy (Verified 08/21/21 12:11) Unknown Home Medications: Aspirin 1 tab PO DAILY 08/06/21 Atorvastatin Calcium 20 mg PO DAILY 08/06/21 Carvedilol [Coreg] 0.1 mg PO DAILY PRN 08/06/21 Cinacalcet HCl 30 mg PO DAILY 08/06/21 Epoetin [Retacrit] 0.4 ml SQ SEECOM 08/06/21 Ergocalciferol (Vitamin D2) [Drisdol] 1 tab PO SEECOM 08/06/21 Febuxostat 40 mg PO DAILY 08/06/21 Fluticasone Propionate [Flonase Allergy Relief] 2 sprays CARLOTTA BID 08/06/21 Folic Acid/Vit B Complex and C [Dialyvite 800 Chewable Wafer] 1 tab PO DAILY 08/06/21 Furosemide 20 mg PO SEECOM 08/06/21 Heparin [Heparin Sodium*] 5 ml SQ SEECOM 08/06/21 Lisinopril [Zestril] 40 mg PO BID PRN 08/06/21 Sertraline [Zoloft*] 100 mg PO DAILY 08/06/21 Sevelamer Carbonate [Renvela] 2 tab PO TID 08/06/21 Sucroferric Oxyhydroxide [Velphoro] 500 mg PO TID 08/06/21 cloNIDine HCL [Clonidine HCl] 0.1 mg PO DAILY PRN 08/06/21 Carvedilol [Coreg] 3.125 mg PO BID #90 tablet 08/09/21 Lisinopril [Zestril] 2.5 mg PO DAILY #90 tablet 08/09/21 - Past Medical/Surgical History Diabetic: No -: Hypertension -: Aortic valve replacement -: Coronary artery disease, CABG x1 vessel -: Lupus -: Chronic renal disease -: Anemia of chronic disease -: Depression -: Aortic valve replacement aug 2016 -: CABG x1 vessel -: Breast biopsies -: D&C -: pacemaker defibrillator 2018 Psychosocial/ Personal History: The patient is . She has children. She does not work. - Family History Mother -: Other (see notes) Notes: ALS Father -: Heart disease, Diabetes - Social History Alcohol use: No CD- Drugs: No Caffeine use: No Review of Systems Other: She denied any nausea or vomiting. She denied any shortness of breath. Except as documented, all other systems reviewed and negative. Physical Examination - Physical Exam General: Alert, In no apparent distress, Oriented x3 HEENT: Atraumatic, PERRLA, Mucous membr. moist/pink, EOMI, Sclerae nonicteric Neck: Supple, JVD not distended, No Thyromegaly Respiratory: Clear to auscultation bilaterally, Normal air movement Cardiovascular: No edema, Regular rate/rhythm, Normal S1 S2, Systolic murmur Capillary refill: <2 Seconds Gastrointestinal: Normal bowel sounds, Soft and benign, No tenderness, Other (PD catheter) Musculoskeletal: No swelling, No tenderness Integumentary: No rashes, No erythema, No cyanosis Neurological: Normal speech, Normal strength at 5/5 x4 extr, Cranial nerves 3-12 intact Lymphatics: No axilla or inguinal lymphadenopathy - Studies Laboratory Data (last 24 hrs) 02/17/22 08:33: Sodium 130 L, Potassium 2.4 L*, BUN 75 H, Creatinine 8.07 H*, Glucose 104, Magnesium 1.9, Total Bilirubin 0.4, AST 53 H, ALT 52, Alkaline Phosphatase 225 H 02/17/22 07:30: WBC 4.0 L, Hgb 8.7 L, Hct 25.7 L, Plt Count 84 L Assessment and Plan - Problems (Diagnosis) (1) Unstable angina Current Visit: Yes Status: Acute (2) Coronary artery disease Onset Date: 11/02/16 Current Visit: No Status: Chronic Qualifiers: (3) ESRD (end stage renal disease) Current Visit: No Status: Chronic (4) H/O aortic valve replacement Current Visit: No Status: Chronic - Plan Admit patient to the medical floor. Patient started on aspirin, metoprolol. Heparin drip. NTG as needed Cardiology consulted-Dr. Braden informed. Obtain echocardiogram. Troponin trended up. Continue to trend troponin. Keep n.p.o. post midnight in case patient will need cardiac catheterization. Nephrology consulted for peritoneal dialysis. Supportive measures-IV morphine as needed for pain. Blood pressure within normal range. Monitor and control blood pressure aggressively. Nephrology to assist with electrolytes correction. - Advance Directives Does patient have a Living Will: No Does patient have a Durable POA for Healthcare: No
[2022-02-17] MEDS ORDERED: POTASSIUM CL SA 10 MEQ TAB PO ONE (13:18)
[2022-02-17] MEDS ORDERED: ALPRAZOLAM 0.25 MG TABLET PO PRN (15:45)
[2022-02-17] MEDS ORDERED: NITROGLYCERIN 0.4 MG/TAB SL PRN (15:45)
[2022-02-17] MEDS ORDERED: HEPARIN/D5W 25,000 UNIT/500 ML BAG IV PRN (15:45)
[2022-02-17 16:01] VITALS: BMI 22.6
[2022-02-17 16:22] LABS: Absolute Lymphocytes (CBC) 0.5 K/uL (0.7-4.9); Hematocrit 26.3 % (36.0-45.0); Lymphocytes % 15.6 % (15.3-44.8); MPV 9.5 fL (7.6-11.3); RBC Red Blood Cell Count 2.83 M/uL (3.86-4.86)
[2022-02-17 16:26] LABS: Protime INR 1.12
[2022-02-17 16:51] LABS: Troponin High Sensitivity 1493.2 pg/mL (<58.9)
--- NOTE | 2022-02-17 17:27 | CON ---
Date of Consultation: 02/17/2022 Reason For Consultation: Hypokalemia, end-stage renal disease. History Of Present Illness: This is a 71-year-old female, well known to me from dialysis with signif icant past medical history of end-stage renal disease, maintained on peritoneal dialysis at [facility], CAD status post CABG, status post ICD, aortic valve stenosis status post replacem ent, hyperlipidemia, the patient recently admitted with anasarca, congestive heart failure exacerbati on, treated, recovered. The patient apparently developed chest pain, left-sided, radiated to her grace ulder, for that reason reported to the hospital. The patient found to be hypotension with typical ch est pain, elevation in troponin. For that reason, the patient was admitted. According to her in the last couple of days, the patient started having some increase in her shortness of breath without mike nging in her weight. Also, the patient complaining from abdominal bloating after eating with nausea without any vomiting. Past Medical History: Includes; 1.End-stage renal disease, on PD. 2.CAD, status post CABG, status post ICD. 3.Aortic valve stenosis, status post placement. 4.Hyperlipidemia. Past Surgical History: Includes; 1.PermCath placement and removal, CABG. 2.Aortic valve replacement. 3.Breast biopsy. 4.. 5.PD catheter placement. 6.Cardiac cath. Family History: Positive for hypertension. Social History: Denies smoking, denies drinking, denies drugs abuse. Allergies: NO KNOWN DRUGS ALLERGY. Home Medications: Include; 1.Aspirin. 2.Atorvastatin. 3.Carvedilol. 4.Sensipar. 5.Ergocalciferol. 6.Lasix. 7.Zoloft. 8.Renvela. Review of Systems: Head and Neck: No red eye. No ear pain. GI: Has digestion and bloating, especially in the afternoon. : The patient is anuric. Asphalt Raker: No vaginal discharge. Respiratory: Has shortness of breath, has orthopnea. Cardiovascular: Has orthopnea. Has leg swelling, resolved by raising the leg. Has chest pain. Neuro: Generalized weakness. Musculoskeletal: Generalized fatigue. Physical Examination: Vital Signs: When I saw the patient; blood pressure 92/40, pulse of 88. Chest: Clear to auscultation. Heart S1, S2. Systolic murmur. Abdomen: Soft, nontender. Extremities: No edema. Neurological: Alert, oriented x3. No focality. Laboratory Data: Chest x-ray; cardiomegaly with mild congestion. WBC 4, H and H 8.7/25.7. Sodium 1 30, potassium 2.4, creatinine 8, BUN 75. Calcium 8.4. Troponin 412. BNP more than 175,000. Assessment And Plan: 1.End-stage renal disease, over volume with respiratory symptoms. I am going to resume the patient on her PD. We will use high concentration bag to establish better volume control and we will monitor the patient closely. 2.Hypertension, currently hypotension. We will hold all blood pressure medications. We will utiliz e blood pressure to establish better volume control. 3.Over volume with congestive heart failure exacerbation. We will ultrafiltrate the patient on high concentration bag. The patient is going to use a green bag. 4.Hyponatremia, dilutional secondary to renal failure, going to be corrected on dialysis. 5.Hypokalemia. We will supplement. I am going to go ahead and check for her magnesium level to maria e miranda. 6.Anemia of chronic kidney disease. Resume BERNARD. 7.Coronary artery disease with unstable angina as by Cardiology. 8.Abdominal pain with history of vascular path. We will proceed with CT with angio to evaluate for any interdialytic ischemia and we will follow up. Time spend examining the patient [id number], discussing the case with the patient and with family m alondra including the sister by bedside, discussing the case with other steamtable worker including nursing a nd hospitalist and ER 65 minutes. ZULAY Voice ID: [id number] Report ID: [id number]
[2022-02-17] MEDS ORDERED: cloNIDine HCL 0.1 MG TAB PO PRN (18:41)
[2022-02-17] MEDS: METOPROLOL TAR 50 MG TAB PO SCH (21:00)
[2022-02-18] MEDS: MORPHINE 4 MG/ML SYR IV PRN ×2 (00:50→07:39)
[2022-02-18] MEDS ORDERED: MAGNES/ALUMIN/SIMET 30ML UCUP PO PRN (03:45)
[2022-02-18] MEDS ORDERED: ONDANSETRON 4 MG (ODT) TAB PO PRN (03:45)
[2022-02-18 04:55] LABS: Absolute Lymphocytes (CBC) 0.4 K/uL (0.7-4.9); Hematocrit 27.5 % (36.0-45.0); Lymphocytes % 10.4 % (15.3-44.8); MPV 9.6 fL (7.6-11.3); RBC Red Blood Cell Count 2.94 M/uL (3.86-4.86)
[2022-02-18 05:29] LABS: Potassium 2.6 mmol/L (3.5-5.1)
[2022-02-18] MEDS ORDERED: TRAMADOL HCL 50 MG TAB PO ONE (05:29)
--- NOTE | 2022-02-18 08:06 | RAD REPORT ---
EXAM DESCRIPTION: RAD - Abdomen 1 View (KUB) - 02/18/2022 5:50 am CLINICAL HISTORY: abdominal cramping COMPARISON: Abdomen 1 View (KUB) dated 01/13/2021; Angio Aorta For Dissection dated 02/17/2022 FINDINGS: Distended small bowel loops are present centrally within the abdomen. 1 segment of small b owel in the left hemiabdomen is mildly dilated at 3 cm. No acute osseous abnormality.Visualized lungs are unremarkable.Tunneled peritoneal catheter terminates in the right lower quadrant. Sternotomy wir es. Pacemaker/ ICD. IMPRESSION: Increased small bowel distention could reflect ileus but no overt signs of a bowel obstr uction
[2022-02-18] MEDS: METOPROLOL TAR 50 MG TAB PO SCH ×2 (08:57→20:49)
[2022-02-18] MEDS: ASPIRIN EC 81 MG TAB PO SCH (08:58)
[2022-02-18] MEDS: Febuxostat [Febuxostat] 40 MG Tablet PO SCH (08:58)
[2022-02-18] MEDS ORDERED: POTASSIUM CL SA 10 MEQ TAB PO ONE ×2 (09:31→17:00)
[2022-02-18] MEDS ORDERED: MAGNESIUM SULFATE 1 gm IVPB 1 GM/100 ML BAG IV ONE (09:32)
[2022-02-18] MEDS ORDERED: EPOETIN ALFA-EPBX 10,000 UNIT/ML VIAL SQ SCH (10:00)
[2022-02-18] MEDS: KCL 20 MEQ/100 mL IVPB 100 ML IV SCH ×2 (10:29→12:35)
[2022-02-18] MEDS ORDERED: MORPHINE 2 MG/ML SYR IV PRN (10:37)
[2022-02-18] MEDS ORDERED: NA CHLORIDE 0.9% 500 ML ONE (10:42)
[2022-02-18] MEDS ORDERED: CEFEPIME 2 GM in NA CHLORIDE 0.9% 100 ML IV SCH (11:00)
[2022-02-18] MEDS: DIPHENHYDRAMINE 25 MG TAB/CAP PO PRN ×2 (14:41→20:46)
--- NOTE | 2022-02-18 15:09 | PN ---
Date of Progress Note: 02/18/2022 Subjective: The patient was admitted with abdominal pain and chest pain radiating to her shoulder. The patient had leak of troponin. The patient's yesterday on dialysis blood pressure stayed stable. We used high concentration with good ultrafiltration, tolerated well. Weight maintained on 66.5. The patient is still off oxygen. The patient had complained from abdominal pain over the night, even though that she had good bowel movement. Physical Examination: Vital Signs: When I saw the patient; blood pressure 109/68, pulse of 87. Weight 66.5. Chest: Clear to auscultation. Heart: S1, S2. Systolic murmur. Abdomen: Soft. Tenderness all over without any guarding or rebound. Extremities: No edema. Neuro: Alert, oriented x3. No focal. Laboratory Data: WBC 4.2, H and H 9.4/27.5. Sodium 130, potassium 2.6, bicarb 23, BUN 69, creatinine 7.9, calcium 8.4. Troponin 1300. Current Medications: Include; 1. Aspirin. 2. Heparin drip. 3. Nitroglycerin. 4. Alprazolam. Assessment And Plan: 1. End-stage renal disease, currently normal volume. I am going to continue PD using 2 bags of higher concentration 2.5 and last bag of low concentration. The patient maintaining good ultrafiltration, maintaining her dry weight and we will follow up. 2. Hyponatremia secondary to dilutional, stable. We will continue current regimen. 3. Hypokalemia, status post supplement yesterday. The patient receive 40 mEq yesterday. I am going to replace another 80 today and we will repeat the lab. 4. Hypomagnesemia. We will supplement. 5. Coronary artery disease. Follow up with Cardiology. 6. Abdominal pain. CT abdomen yesterday was done, did not show any suspicious of any dissection or any intrinsic ischemia. The patient is still complaining from the pain. I am going to go ahead and send for fluid cell count and fluid culture and we will start the patient on antibiotic. We will start the patient on PPI and we will follow up. Time spent examining the patient [id number], discussing the case with the patient and the sister by bedside, discussing the case with the steam generating powerplant mechanic including dialysis nurse from her unit and the nursing staff in the unit, discussing the case with the hospitalist and Cardiology 35 minutes. MA/TAMMYL Voice ID: [id number] Report ID: [id number] MIGUEL
--- NOTE | 2022-02-18 15:56 | P.PN ---
Subjective Date of Service: 02/18/22 Chief Complaint: Chest pain Patient complained of experiencing abdominal pain last night. KUB demonstrated focal ileus. Patient report 2 bowel movements this morning. She was also complaining of itching this afternoon. Physical Examination - Vital Signs Temperature: 97.4 F Blood Pressure: 108/61 Pulse: 71 Respirations: 22 Pulse Ox (%): 91 Assessment And Plan - Current Problems (Diagnosis) (1) Unstable angina Current Visit: Yes Status: Acute (2) Coronary artery disease Onset Date: 11/02/16 Current Visit: No Status: Chronic Qualifiers: (3) ESRD (end stage renal disease) Current Visit: No Status: Chronic (4) H/O aortic valve replacement Current Visit: No Status: Chronic - Plan Physical Exam General: Alert, In no apparent distress. HEENT: PERRLA, Mucous membr. moist/pink, Sclerae nonicteric Neck: Supple, JVD not distended. Respiratory: Clear to auscultation bilaterally, Normal air movement Cardiovascular: No edema, Regular rate/rhythm, Normal S1 S2, Systolic murmur Gastrointestinal: Normal bowel sounds, Soft and benign, No tenderness, Other (PD catheter) Musculoskeletal: No swelling, No tenderness Integumentary: No rashes, No erythema, No cyanosis Neurological: Normal speech, no focal motor deficit Plan: Troponin trended up and peaked at 1493. Patient seen by cardiology-Dr. Braden who recommended medical management at this time. Dr. Braden recommend WYATT branches coiling for coronary steal. Continue aspirin, metoprolol. Heparin drip discontinued by cardiology. NTG as needed Echocardiogram is pending. Nephrology consulted for peritoneal dialysis. Patient with abdominal pain. CT dissection done is negative for any abdominal aortic aneurysm. Patient has stable ascending aortic aneurysm which has been stented. Peritoneal fluid for analysis to rule out peritonitis given abdominal pain. Patient with a history of GERD. Start Protonix. Focal ileus likely secondary to hypokalemia. This could be contributing to patient's abdominal pain. Potassium is being replaced. Blood pressure within normal range. Monitor and control blood pressure aggressively.
[2022-02-18 15:59] LABS: Appearance CLEAR (CLEAR); Body Fluid Source PERITONEAL; Color of fluid Colorless (COLORLESS)
[2022-02-18 16:00] LABS: Body Fluid WBC 3 /mm^3
[2022-02-18] MEDS: PANTOPRAZOLE 40MG TABLET PO SCH (17:28)
[2022-02-18] MEDS: HOME MED 1 EA UNK (Sucroferric Oxyhydroxide [Velphoro] 500 MG Tab.Chew) PO SCH (20:54)
[2022-02-19] MEDS: DIPHENHYDRAMINE 25 MG TAB/CAP PO PRN ×2 (03:15→09:08)
[2022-02-19 04:09] LABS: MPV 9.1 fL (7.6-11.3); RBC Red Blood Cell Count 3.04 M/uL (3.86-4.86)
[2022-02-19 04:32] VITALS: TEMP 97.1
[2022-02-19 05:03] LABS: Albumin 2.1 g/dL (3.4-5.0); BUN Blood Urea Nitrogen 54 mg/dL (7-18); Bicarbonate 26 mmol/L (21-32); Ferritin 831.8 ng/mL (8-388); Glucose Level 114 mg/dL (74-106); Magnesium 2.3 mg/dL (1.8-2.4); Phosphorus 4.3 mg/dL (2.5-4.9); Potassium 3.5 mmol/L (3.5-5.1); Sodium Level 132 mmol/L (136-145); Transferrin 104 mg/dL (200-360)
[2022-02-19 05:04] LABS: Folic Acid, (Folate) > 20.0 ng/mL (3.1-17.5)
--- NOTE | 2022-02-19 06:46 | ECHO ---
HEIGHT: 5 ft 6 in WEIGHT: 139 lb 0.023 oz DATE OF STUDY: 02/18/[address]: alexey rollins 2-DIMENSIONAL: YES M.MODE: YES DOPPLER: YES COLOR FLOW: YES TDS: PORTABLE: DEFINITY: BUBBLE STUDY: DIAGNOSIS: NON ST ELEVATION MYOCARDIAL INFARCTION CARDIAC HISTORY: CATHERIZATION: YES SURGERY: YES PROSTHETIC VALVE: YES PACEMAKER: YES MEASUREMENTS (cm) DIASTOLIC (NORMALS) SYSTOLIC (NORMALS) IVSd 1.3 (0.6-1.2) LA Diam 2.0 (1.9-4.0) LVEF 45-50% LVIDd 4.5 (3.5-5.7) LVIDs 3.1 (2.0-3.5) %FS 25% LVPWd 1.5 (0.6-1.2) Ao Diam 3.4 (2.0-3.7) 2 DIMENSIONAL ASSESSMENT: RIGHT ATRIUM: NORMAL LEFT ATRIUM: NORMAL RIGHT VENTRICLE: NORMAL LEFT VENTRICLE: LEFT VENTRICULAR HYPERTROPHY TRICUSPID VALVE: NORMAL MITRAL VALVE: NORMAL PULMONIC VALVE: NORMAL AORTIC VALVE: NORMAL TAVR FUNCTION PERICARDIAL EFFUSION: NONE AORTIC ROOT: NORMAL LEFT VENTRICULAR WALL MOTION: MILD GLOBAL HYPOKINESIS DOPPLER/COLOR FLOW: MILD TRICUSPID REGURGITATION. NORMAL RIGHT VENTRICULAR SYSTOLIC PRESSURE. COMMENTS: LEFT VENTRICULAR HYPERTROPHY. MILD GLOBAL HYPOKINESIS. EJECTION FRACTION 45-50%. NORMAL TRANSCATHETER AORTIC VALVE REPLACEMENT FUNCTION. MILD TRICUSPID REGURGITATION. TECHNOLOGIST: LEA ROACH
[2022-02-19] MEDS: METOPROLOL TAR 50 MG TAB PO SCH (08:06)
[2022-02-19] MEDS ORDERED: SERTRALINE HCL 100 MG TAB PO SCH (09:00)
[2022-02-19] MEDS ORDERED: ATORVASTATIN 20 MG TAB PO SCH (09:00)
[2022-02-19] MEDS: Febuxostat [Febuxostat] 40 MG Tablet PO SCH (09:00)
[2022-02-19] MEDS ORDERED: CEFEPIME 1 GM in NA CHLORIDE 0.9% 100 ML IV SCH (09:00)
[2022-02-19] MEDS ORDERED: HOME MED 1 EA UNK (Folic Acid/Vit B Complex And C [Dialyvite 800 Chewable Wafer] 800 MCG T PO SCH (09:00)
[2022-02-19] MEDS: HOME MED 1 EA UNK (Sucroferric Oxyhydroxide [Velphoro] 500 MG Tab.Chew) PO SCH (09:00)
[2022-02-19 09:04] VITALS: O2SAT 100
[2022-02-19] MEDS: ASPIRIN EC 81 MG TAB PO SCH (09:08)
[2022-02-19] MEDS: PANTOPRAZOLE 40MG TABLET PO SCH (09:08)
[2022-02-19 09:49] VITALS: BP 92/56
[2022-02-19] MEDS ORDERED: CALCITROL 0.25 MCG CAP PO SCH (10:00)
[2022-02-19] MEDS ORDERED: POTASSIUM CL SA 10 MEQ TAB PO ONE (10:01)
--- NOTE | 2022-02-19 13:00 | P.DS ---
Admission Date: 02/17/22 Discharge Date: 02/19/22 Disposition: ROUTINE DISCHARGE Discharge Condition: FAIR Reason for Admission: Chest pain Consultations: Nephrology-Dr. Cerda Cardiology-Dr. Braden - Problems (1) Unstable angina Status: Acute (2) Coronary artery disease Onset Date: 11/02/16 Status: Chronic Qualifiers: (3) ESRD (end stage renal disease) Status: Chronic (4) H/O aortic valve replacement Status: Chronic Brief History of Present Illness: 71-year-old woman with a history of multiple comorbidities including coronary artery disease, pacemaker placement, thoracic aortic aneurysm aortic valve replacement, end-stage renal disease on peritoneal dialysis presented to the emergency department with a complaint of chest pain of onset this morning. Patient describes severe chest pain which was relieved with nitroglycerin given by EMS in route to the ED. She continues to experience intermittent chest pain and needed multiple doses of nitroglycerin. CT dissection done in the ED demonstrated 3 cm aortic aneurysm which is unchanged from previous, stent in the ascending aorta, no dissection. Troponin initially elevated to 413. Patient with hypokalemia. EKG nondiagnostic due to paced rhythm. Patient with multiple CAD risk factors presenting with intermittent chest pain. She was diagnosed with NSTEMI, unstable angina and admitted for further management. Hospital Course: Patient admitted to the medical floor. Troponin trended up and peaked at 1493. She was started on heparin drip for NSTEMI/unstable angina. Patient seen by cardiology-Dr. Braden who recommended medical management at this time. Dr. Braden recommend WYATT branches coiling for coronary steal. Patient treated with aspirin, metoprolol. Heparin drip later discontinued by cardiology. Echocardiogram: Demonstrated LVH, mild global hypokinesia and EF of 40 to 45%. Nephrology consulted for peritoneal dialysis. Patient with abdominal pain. CT dissection done was negative for any abdominal aortic aneurysm. Patient has stable ascending aortic aneurysm which has been stented. Peritoneal fluid for analysis did not suggest peritonitis. KUB demonstrated focal small bowel dilatation that could explain her abdominal pain. Patient had multiple bowel movement and Flatus. She was also complaining of heartburn and was started on Protonix. Patient was yet to fill her prescription for Protonix at home. Focal ileus likely secondary to hypokalemia. Low potassium was replaced and patient symptoms resolved. Patient deemed stable for discharge. Cardiology recommend outpatient follow-up for arrangement for the WYATT branches coiling. Vital Signs/Physical Exam: Temp Pulse Resp BP Pulse Ox 97.1 F 68 19 92/56 L 100 02/19/22 04:00 02/19/22 09:00 02/19/22 04:00 02/19/22 09:00 02/19/22 04:00 General: Alert, In no apparent distress, Oriented x3 HEENT: Normocephalic, Mucous membr. moist/pink Neck: Supple, No Thyromegaly Respiratory: Clear to auscultation bilaterally, Normal air movement Cardiovascular: No edema, Regular rate/rhythm, Normal S1 S2 Gastrointestinal: Normal bowel sounds, Soft and benign, Non-distended, No tenderness Musculoskeletal: No swelling, No tenderness Integumentary: No rashes, No erythema Neurological: Normal strength at 5/5 x4 extr Laboratory Data at Discharge: WBC Cancelled 02/19/22 12:00 Hgb Cancelled 02/19/22 12:00 Hct Cancelled 02/19/22 12:00 Plt Count Cancelled 02/19/22 12:00 PT 12.4 SECONDS (9.5-12.5) 02/17/22 16:04 INR 1.12 02/17/22 16:04 APTT Cancelled 02/18/22 08:30 Sodium 132 mmol/L (136-145) L 02/19/22 03:09 Potassium 3.5 mmol/L (3.5-5.1) 02/19/22 03:09 BUN 54 mg/dL (7-18) H 02/19/22 03:09 Creatinine 7.23 mg/dL (0.55-1.3) H* 02/19/22 03:09 Glucose 114 mg/dL (74-106) H 02/19/22 03:09 Phosphorus 4.3 mg/dL (2.5-4.9) 02/19/22 03:09 Magnesium 2.3 mg/dL (1.8-2.4) 02/19/22 03:09 Total Bilirubin 0.4 mg/dL (0.2-1.0) 02/17/22 08:33 AST 53 U/L (15-37) H 02/17/22 08:33 ALT 52 U/L (12-78) 02/17/22 08:33 Alkaline Phosphatase 225 U/L (45-117) H 02/17/22 08:33 Triglycerides 72 mg/dL (<150) 02/17/22 16:04 Cholesterol 67 mg/dL (<200) 02/17/22 16:04 HDL Cholesterol 33 mg/dL (40-60) L 02/17/22 16:04 Cholesterol/HDL Ratio 2.03 02/17/22 16:04 Home Medications: Aspirin 1 tab PO DAILY 08/06/21 Atorvastatin Calcium 20 mg PO DAILY 08/06/21 Epoetin [Retacrit] 0.4 ml SQ SEECOM 08/06/21 Ergocalciferol (Vitamin D2) [Drisdol] 1 tab PO SEECOM 08/06/21 Folic Acid/Vit B Complex and C [Dialyvite 800 Chewable Wafer] 1 tab PO DAILY 08/06/21 Sertraline [Zoloft*] 50 mg PO DAILY 08/06/21 Sevelamer Carbonate [Renvela] 2 tab PO TID 08/06/21 Sucroferric Oxyhydroxide [Velphoro] 500 mg PO TID 08/06/21 Esomeprazole Magnesium [Nexium] 40 mg PO DAILY 02/18/22 Heparin [Heparin 10,000 units/10 mL vial] 6 ml SQ DIRECTED 02/18/22 Midodrine HCl [Proamatine*] 1 tab PO BIDP PRN 02/18/22 Calcitrol [Rocaltrol*] 0.5 mcg PO Q48H #15 cap 02/19/22 Diphenhydramine [Benadryl*] 25 mg PO Q6H PRN #30 tab 02/19/22 Febuxostat [Febuxostat] 40 mg PO DAILY #0 02/19/22 Metoprolol Tartrate [Lopressor*] 25 mg PO BID #60 tab 02/19/22 Pantoprazole [Protonix Tab*] 40 mg PO BIDAC #60 tab 02/19/22 New Medications: Diphenhydramine [Benadryl*] 25 mg PO Q6H PRN #30 tab PRN Reason: Itching Febuxostat [Febuxostat] 40 mg PO DAILY #0 Metoprolol Tartrate [Lopressor*] 25 mg PO BID #60 tab Pantoprazole [Protonix Tab*] 40 mg PO BIDAC #60 tab Calcitrol [Rocaltrol*] 0.5 mcg PO Q48H #15 cap Followup: Angie Cerda MD [ACTIVE - CAN ADMIT] - Matthew Braden MD [ACTIVE - CAN ADMIT] - 1-2 Weeks Nghia Jones MD [Primary Care Provider] - Time spent managing pt's care (in minutes): 38
--- NOTE | 2022-02-19 15:05 | CON ---
Date of Consultation: 02/18/2022 Reason For Consultation: Admitted on 02/17/[address] Cormier due to chest pain. I saw the patient on 02/18/2022. History Of Present Illness: Ms. Haywood is 71 years old. She is a patient of Dr. Knight. Has a very complicated past medical and cardiac history. She has had a history of aortic thoracic stent. She has a history of TAVR. She has a history of pacemaker. She has a history of hypertension, lupus, de pression, end-stage renal disease. On her last catheterization, she was found to have a patent WYATT to the LAD, but apparently had branches come off the WYATT. Dr. Knight had suggested coiling of the b ranches of the mammary as that were causing her pattern of chest pain. This was not done. The vangie terization was done in 09/2021. She comes in with chest pain. No nausea, vomiting, diaphoresis, PND , orthopnea, pedal edema, palpitation, or syncope. Her troponin was 1331. BNP was 175,000. Her cre atinine was 7.9. Her potassium is 2.6. Hemoglobin is 9. EKG showed paced rhythm. Chest x-ray was negative. Past Medical History: As stated above. Allergies: NONE. Review of Systems: Negative. Social History: Negative. Family History: Negative. Medications: Include aspirin, Lipitor, Epoetin, Nexium, and Zoloft. Physical Examination: Vital Signs: Stable, afebrile. HEENT: Negative. Neck: Supple with no bruit. Chest: Clear. Cardiac: Revealed a regular rhythm and rate with S4 gallops. Abdomen: Benign. Extremities: Revealed no clubbing, cyanosis, or edema. Diagnostic Data: As stated earlier. Impression And Plan: 1.Coronary artery disease, status post coronary artery bypass graft, WYATT is open with branches come off the WYATT causing the angina. I think she needs coiling of the branches of the WYATT. I will dis cuss the case further with Dr. Knight and set her up to do this as an outpatient. Her echocardiogram is pending. I think we need to continue her home medication and also add a low-dose beta max as well as nitroglycerin p.r.n. We will see her in the office as an outpatient. We will see what the echo shows. Her elevated BNP and troponin are combination of coronary artery disease and chronic joan al disease with end-stage renal disease on dialysis. 2.Hypokalemia that needs to be corrected. 3.Anemia. 4.Status post pacemaker. 5.End-stage renal disease, on dialysis. 6.Status post pacemaker and transcatheter aortic valve replacement and thoracic aorta stent. 7.Dyslipidemia. 8.Depression. 9.Lupus. 10.Gastroesophageal reflux disease. Again, we will see what the echo shows. Continue present regim en. Add a low-dose beta max. Set up for outpatient visit with Dr. Knight to discuss coiling of the WYATT. MAMTA/HECTOR Voice ID: [id number] Report ID: [id number]
--- NOTE | 2022-02-19 16:05 | PN ---
Date of Progress Note: 02/19/2022 Subjective: The patient was admitted with chest pain, typical with elevation in troponin, marginal low blood pressure. The patient seen by Cardiology, needing coil ROEL . The patient possibly needing transfer. The patient has still low blood pressure, but completely asymptomatic, which is her chronic hypotension. Physical Examination: Vital Signs: When I saw the patient; blood pressure 92/56, pulse of 68. The patient dialyzed very well yesterday. Maintained her weight at 66.5. Chest: Clear to auscultation. Heart: S1, S2. Systolic murmur. Abdomen: Soft, nontender. Extremity: No edema. Neurological: Alert, oriented x3. No focal. Laboratory Data: Hemoglobin/hematocrit 9.4/27.5. Sodium 132, potassium 3.5, bicarb 26, BUN 54, creatinine 7.2, magnesium 2.3, calcium 8.7, phosphorus 4.3, iron saturation of 40, ferritin 831, albumin 2.1. PTH 770. Fluid analysis was negative for infection. WBC of 3. Current Medications: The patient on include aspirin, cefepime, diphenhydramine, atorvastatin, metoprolol, nitroglycerin, alprazolam, Zoloft, Zofran, pantoprazole, folic acid, vitamin D. Assessment And Plan: 1. End-stage renal disease, looked to me on the normal volume currently. I am going to monitor the patient. We will use low concentration bag for today and we will follow up the patient. I am going to repeat the chest x-ray for reevaluation of her fluid status and we will follow up. 2. Hypertension, currently blood pressure marginally on the lower side, which is she has chronic hypotension. The patient was started on metoprolol. We will follow up with Cardiology. As I said, we will use slow concentration bag and we will follow up. 3. Hypokalemia. We will supplement again. Today, potassium number much better. 4. Hypomagnesemia, resolved. 5. Secondary hyperparathyroidism. Continue binder start the patient on calcitriol. Continue vitamin D. 6. Hyponatremia secondary to cardiorenal, dilutional. Sodium is trending up. We will follow up. 7. Unstable angina. We will follow up with Cardiology. Time spent examining the patient [id number], discussing the case with the patient and the sister by bedside, discussing the case with the production team manager including dialysis nurse from her unit and the nursing staff in the unit, discussing the case with the hospitalist and Cardiology 35 minutes. ZULAY Voice ID: [id number] Report ID: [id number] MTDD
--- NOTE | 2022-02-21 23:01 | PN ---
Date of Progress Note: 02/19/2022 Ms. Haywood was admitted with chest pain. MO has been ruled out. She has a TAVR. She has a bypass s urgery. Ejection fraction on the echocardiogram was 45% to 50% with a normal TAVR function, mild tri cuspid regurgitation. No pulmonary hypertension. Ms. 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 She has been stable since her ca theterization [place] [address] Knight. I think we should add metoprolol. We should add nitroglycerin as needed. She can go home and we will make arrangement for coiling of her left internal mammary art jaquan branches as an outpatient. MAMTA/HECTOR Voice ID: [id number] Report ID: [id number]
[2022-03-19] MEDS ORDERED: DRISDOL (VITAMIN D=ERGOCALCIFEROL) 50000 UNIT CAP PO SCH (09:00)
== END 2022-02-19 12:35 | disposition home or self-care (01) | DRG 302 ==
LOC: ER 06:41 → ERHOLD 12:08 → 4TH 15:18
PROVIDERS: ADMIT Internal Medicine; ATTEND Internal Medicine
DX: I25.110 Atherosclerotic heart disease of native coronary artery with unstable angina pectoris (principal); N18.6 End stage renal disease; K56.7 Ileus, unspecified; I12.0 Hypertensive chronic kidney disease with stage 5 chronic kidney disease or end stage renal disease; E87.1 Hypo-osmolality and hyponatremia; N25.81 Secondary hyperparathyroidism of renal origin; I95.9 Hypotension, unspecified; E87.6 Hypokalemia; K31.89 Other diseases of stomach and duodenum; K21.9 Gastro-esophageal reflux disease without esophagitis; E83.42 Hypomagnesemia; I07.1 Rheumatic tricuspid insufficiency; E78.5 Hyperlipidemia, unspecified; M32.9 Systemic lupus erythematosus, unspecified; I71.2 Thoracic aortic aneurysm, without rupture; F32.A Depression, unspecified; Z95.2 Presence of prosthetic heart valve; Z95.0 Presence of cardiac pacemaker; Z79.82 Long term (current) use of aspirin; Z99.2 Dependence on renal dialysis; Z20.822 Contact with and (suspected) exposure to COVID-19
CPT/HCPCS: 36415; 71045; 71275; 74018; 74175; 80048; 80053; 80061; 80069; 82607; 82728; 82746; 83540; 83735; 83880; 83970; 84132; 84443; 84466; 84484; 85025; 85044; 85049; 85610; 85730; 87070; 87075; 87205; 89050; 93005; 93306; 99284; J0692; J1644; J2270; J3475; J3480; J7040; Q5106; Q9967; U0003

== ENCOUNTER 2022-02-19 15:53 | Emergency (ER) | payer OTHER ==
--- OUTSIDE RECORDS SUMMARY | 2022-02-19 15:58 | XMS REPORT | Continuity of Care Document ---
:1950 Author Organization [facility] t Address [address] [place] [address] Care Team Providers Name Role Phone Robert [...] Expiration Date S ource MEDICARE PART A [id number] 2016 \T\ B 00:00:00 [facility] [id number] 2021 00:00:00 Problems Condition Condition Condition Status [...] Added automatic ally from request for surgery [id number] S/P TAVR S/P TAVR Disease Active Overview: [...] PD catheter placement with another surgeon at [facility] elvin.I will be available as needed. We [...] [place] type d type 00 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 [place] Vitamin D Vitamin D Disease Active 2017-11 Uni vers deficiency deficiency 0-02 it y of 00:00: [place] [address] Medical Branch History of History of Disease Active U nivers lupus lupus 7- [place] of nephritis nephritis [place] [facility] CKD stage CKD stage Disease Active Uni vers G5/A3, GFR G5/A3, GFR 7-21 it y of <15 and <15 and 00:00: [place] albumin albumin [address] [place] [address] creatinine creatinine Br anch ratio >300 ratio >300 mg/g mg/g Elevated Elevated Disease Active Unive rs serum serum 7 [place] of creatinine creatinine [place] [facility] Branch Thrombocyt Thrombocyt Disease Active U nivers openia openia - ity of 00:00: [address] Branch RADHA RADHA Disease Active Univers positive positive 12-10 ity of 00:00: [place] [facility] Branch SS-A SS-A Disease Active Univers antibody antibody - ity of positive positive 00:00: [place] [facility] Branch Essential Essential Disease Active 2012-11 Uni vers hypertensi hypertensi 2-20 it y of on, benign on, benign 00:00[place] [facility] [place] Red eye Red eye Disease Active Univers 8-30 ity of 00:00: [place] 00 [facility] Iron Iron Disease Active Univers deficiency deficiency 8-30 it y of anemia anemia 00:00: [place] 00 [facility] Skin rash Skin rash Disease Active Uni vers 6-07 ity of 00:00: [place] 00 [facility] Hyperurice Hyperurice Disease Active U nivasim otto otto 5-14 ity of 00:00: [place] 00 [facility] Systemic Systemic Disease Active Unive rs lupus lupus 5-08 ity of erythemato erythemato 00:00[place] ezekiel, ezekiel, 00 Medical unspecifie unspecifie Br anch d SLE d SLE type, type, unspecifie unspecifie d organ d organ involvemen involvemen t status t status Loss of Loss of Disease Active Univers weight weight 5-08 ity of 00:00: [place] 00 [facility] Other Other Disease Active Univers malaise malaise 5-08 ity of and and 00:00: [place] fatigue fatigue [facility] Other Other Disease Active Univers abnormal abnormal 5-08 ity of blood blood 00:00: [place] chemistry chemistry 00 [facility] Allergies, Adverse Reactions, Alerts Allergy Allergy Status Severity Reaction(s) Onset Inactive Treating Comm ents Source Name Type Date Date Clinician NO KNOWN Drug Active Univers ALLERGIE Class ity of S [facility] Family History Family Member Diagnosis Comments Start Date Stop Date Source Natural father Heart disease [facility] Natural father Arthritis [facility] Natural father Heart disease [facility] Natural mother ALS [facility] Natural mother Neuromuscular disorder [facility] Natural sister Hypertension [facility] Social History Social Habit Start Date Stop Date Quantity Comments Source Sex Assigned At [facility] History SDOH University o f Alcohol Frequency [place] [facility] History SDOH University o f Alcohol Std [place] [facility] Drinks Branch History SDOH University o f Alcohol Binge [place] [facility] Exposure to Not sure University of SARS-CoV-2 [place] [facility] (event) Branch Alcohol intake 2018-11-30 2018-11-30 Current drinker RAMANDEEP Borja - 00:00:00 00:00:00 of [facility] (finding) Alcohol Comment 2018-11-30 2018-11-30 rarely used RAMANDEEP Dasilva ukes - 00:00:00 00:00:00 [facility] Tobacco use and 2013-03-22 2013-03-22 Never used Universit y of exposure 00:00:00 00:00:00 [facility] Smoking Status Start Date Stop Date Source Never smoker [facility] Medications Ordered Filled Start Stop Current Ordering Indication Dosage Frequency Signature Comments Components Source Medication Medication Date Date Medication? Clinician (SIG) Name Name 2020-11- No [id number] 45.2mCi 45.2 Univ ers 99m-tetrofo 12-31 millicurie i ty of smin 20:30: 19:17 , [place] ([facility]) 00 :00 Intravenou Medi jaxon injection s, ONCE, 1 Bran ch 45.2 dose, On [facility] 10/30/21 at 1430, Routine Regadenoson 2020-11- No [id number] .4mg 0.4 mg, IV Univers (LEXISCAN) 12-31 Push, ity of injection 20:15: 19:16 ONCE, 1 [place] 0.4 mg 00 :00 dose, On [facility] 10/30/21 at 1415, Routine
faculty member approving Restricted medication : DIO RICHMOND 2020-11- No [id number] 16.44mC 16.44 U nivers 99m-tetrofo 12-31 4104 i millicurie i ty of smin 19:15: 18:12 , [facility]) 00 :00 Intravenou Medi jaxon injection s, ONCE, 1 Bran ch 16.44 dose, On [facility] 10/30/21 at 1315, Routine atorvastati 2020-11 Yes 20mg Take 20 mg Univers n 20 mg 1-19 by mouth ity of tablet 11:37: at [place] [address] bedtime. [facility] fluticasone 2020-11 Yes 1{spray Use 1 Un delphine 50 1-19 } [place] in ity of mcg/actuati 11:37: each [place] on nasal 16 nostril 2 Medica l spray (two) Branch times daily. aspirin 81 2020-11 Yes 81mg Take 81 mg U nivers mg EC 1-19 by mouth ity of tablet 11:37: daily. [address] multivitami 2020-11 Yes Take by Un delphine n,therapeut 1-19 mouth. ity of ic (THERA 11:37: [place] MULTI-VITAM 16 Medical IN ORAL) Branch metoclopram 2020-11 Yes 5mg Take 5 mg U nivers yaw HCl 5 1-19 by mouth 3 ity of mg tablet 11:37: (three) [place] [address] times Medical daily with Branch meals. sevelamer 2020-11 Yes 3200mg Take 3,200 Univers 800 mg 1-19 mg by ity of tablet 11:37: mouth 3 [place] [address] (three) Medical times Branch daily with meals. pantoprazol 2020-11 Yes 40mg Take 40 mg Univers e 20 mg EC 1-19 by mouth ity o f tablet 11:37: daily. [address] Branch EPOETIN 2020-11 Yes [id number] Inject Univer s ZAYDA 1-19 13,000 ity of INJECTION 11:37: Units [place] 16 directed Medical weekly. Branch Cholecalcif 2020-11 Yes 1000U Take 1,000 Univers naresh, 1-19 Units by ity of Vitamin D3, 11:37: mouth. [place] [facility] 16 Medical (1,000 Branch unit) capsule atorvastati 2020-11 Yes 20mg Take 20 mg Univers n 20 mg 1-19 by mouth ity of tablet 11:37: at [place] [address] bedtime. Medical Branch fluticasone 2020-11 Yes 1{spray Use 1 Un delphine 50 1-19 } [place] in ity of mcg/actuati 11:37: each [place] on nasal 16 nostril 2 Medica l spray (two) Branch times daily. aspirin 81 2020-11 Yes 81mg Take 81 mg U nivers mg EC 1-19 by mouth ity of tablet 11:37: daily. [address] Branch multivitami 2020-11 Yes Take by Un delphine n,therapeut 1-19 mouth. ity of ic (THERA 11:37: [place] MULTI-VITAM 16 Medical IN ORAL) Branch metoclopram 2020-11 Yes 5mg Take 5 mg U nivers yaw HCl 5 1-19 by mouth 3 ity of mg tablet 11:37: (three) [place] [address] times Medical daily with Branch meals. sevelamer 2020-11 Yes 3200mg Take 3,200 Univers 800 mg 1-19 mg by ity of tablet 11:37: mouth 3 [place] [address] (three) Medical times Branch daily with meals. pantoprazol 2020-11 Yes 40mg Take 40 mg Univers e 20 mg EC 1-19 by mouth ity o f tablet 11:37: daily. [place] [address] Medical Branch EPOETIN 2020-11 Yes [id number] Inject Univer s ZAYDA 1-19 13,000 ity of INJECTION 11:37: Units as [facility] s directed Medical weekly. Branch Cholecalcif 2020-11 Yes 1000U Take 1,000 Univers naresh, 1-19 Units by ity of Vitamin D3, 11:37: mouth. [facility] 25 mcg 16 Medical (1,000 Branch unit) capsule atorvastati 2020-11 Yes 20mg Take 20 mg Univers n 20 mg 1-19 by mouth ity of tablet 11:37: at [place] [address] bedtime. Medical Branch fluticasone 2020-11 Yes 1{spray Use 1 Un delphine 50 1-19 } [place] in ity of mcg/actuati 11:37: each [place] on nasal 16 nostril 2 Medica l spray (two) Branch times daily. aspirin 81 2020-11 Yes 81mg Take 81 mg U nivers mg EC 1-19 by mouth ity of tablet 11:37: daily. [address] Branch multivitami 2020-11 Yes Take by Un delphine n,therapeut 1-19 mouth. ity of ic (THERA 11:37: [place] MULTI-VITAM 16 Medical IN ORAL) Branch metoclopram 2020-11 Yes 5mg Take 5 mg U nivers yaw HCl 5 1-19 by mouth 3 ity of mg tablet 11:37: (three) [address] daily with Branch meals. sevelamer 2020-11 Yes 3200mg Take 3,200 Univers 800 mg 1-19 mg by ity of tablet 11:37: mouth 3 [place] [address] (three) Medical times [place] daily with meals. pantoprazol 2020-11 Yes 40mg Take 40 mg Univers e 20 mg EC 1-19 by mouth ity o f tablet 11:37: daily. [address] Branch EPOETIN 2020-11 Yes [id number] Inject Univer s ZAYDA 1-19 13,000 ity of INJECTION 11:37: Units as [place] [facility] 16 directed Medical weekly. Branch Cholecalcif 2020-11 Yes 1000U Take 1,000 Univers naresh, 1-19 Units by ity of Vitamin D3, 11:37: [place]. [place] 25 [place]cg 16 Medical (1,000 Branch unit) capsule atorvastati 2020-11 Yes 20mg Take 20 mg Univers n 20 mg 1-19 by mouth ity of tablet 11:37: at [place] [address] bedtime. Medical Branch fluticasone 2020-11 Yes 1{spray Use 1 Un delphine 50 1-19 } [place] in ity of mcg/actuati 11:37: each [place] on nasal 16 nostril 2 Medica l spray (two) Branch times daily. aspirin 81 2020-11 Yes 81mg Take 81 mg U nivers mg EC 1-19 by mouth ity of tablet 11:37: daily. [address] Branch multivitami 2020-11 Yes Take by Un delphine n,therapeut 1-19 mouth. ity of ic (THERA 11:37: [place] MULTI-VITAM 16 Medical IN ORAL) Branch metoclopram 2020-11 Yes 5mg Take 5 mg U nivers yaw HCl 5 1-19 by mouth 3 ity of mg tablet 11:37: (three) [place] [address] times Medical daily with Branch meals. sevelamer 2020-11 Yes 3200mg Take 3,200 Univers 800 mg 1-19 mg by ity of tablet 11:37: mouth 3 [place] 16 (three) Medical times Branch daily with meals. pantoprazol 2020-11 Yes 40mg Take 40 mg Univers e 20 mg EC 1-19 by mouth ity o f tablet 11:37: daily. [address] Branch EPOETIN 2020-11 Yes [id number] Inject Univer s ZAYDA 1-19 13,000 ity [...] by mouth ity of tablet 11:37: at [place] [address] bedtime. Medical Branch fluticasone 2020-11 Yes 1{spray Use 1 Un delphine 50 1-19 } [place] in ity of mcg/actuati 11:37: each [place] on nasal 16 nostril 2 Medica l spray (two) Branch times daily. aspirin 81 2020-11 Yes 81mg Take 81 mg U nivers mg EC 1-19 by mouth ity of tablet 11:37: daily. [address] Branch multivitami 2020-11 Yes Take by Un delphine n,therapeut 1-19 mouth. ity of ic (THERA 11:37: [place] MULTI-VITAM 16 Medical IN ORAL) Branch metoclopram 2020-11 Yes 5mg Take 5 mg U nivers yaw HCl 5 1-19 by mouth 3 ity of mg tablet 11:37: (three) [place] [address] times Medical daily with Branch meals. sevelamer 2020-11 Yes 3200mg Take 3,200 Univers 800 mg 1-19 mg by ity of tablet 11:37: mouth 3 [place] [address] (three) Medical times Branch daily with meals. pantoprazol 2020-11 Yes 40mg Take 40 mg Univers e 20 mg EC 1-19 by mouth ity o f tablet 11:37: daily. [address] Branch EPOETIN 2020-11 Yes [id number] Inject Univer s ZAYDA 1-19 13,000 ity [...] by mouth ity of tablet 11:37: at [place] [address] bedtime. Medical Branch fluticasone 2020-11 Yes 1{spray Use 1 Un delphine 50 1-19 } [place] in ity of mcg/actuati 11:37: each [place] on nasal 16 nostril 2 Medica l spray (two) Branch times daily. aspirin 81 2020-11 Yes 81mg Take 81 mg U nivers mg EC 1-19 by mouth ity of tablet 11:37: daily. [address] multivitami 2020-11 Yes Take by Un delphine n,therapeut 1-19 mouth. ity of ic (THERA 11:37: [place] MULTI-VITAM 16 Medical IN ORAL) Branch metoclopram 2020-11 Yes 5mg Take 5 mg U nivers yaw HCl 5 1-19 by mouth 3 ity of mg tablet 11:37: (three) [address] Medical daily with Branch meals. sevelamer 2020-11 Yes 3200mg Take 3,200 Univers 800 mg 1-19 mg by ity of tablet 11:37: mouth 3 [place] [address] (three) Medical times [place] daily with meals. pantoprazol 2020-11 Yes 40mg Take 40 mg Univers e 20 mg EC 1-19 by mouth ity o f tablet 11:37: daily. [address] Branch EPOETIN 2020-11 Yes [id number] Inject Univer s ZAYDA 1-19 13,000 ity of INJECTION 11:37: Units [place] 16 directed Medical weekly. Branch Cholecalcif 2020-11 Yes 1000U Take 1,000 Univers naresh, 1-19 Units by ity of Vitamin D3, 11:37: mouth. [facility] 25 mcg Medical (1,000 Branch unit) capsule atorvastati 2020-11 Yes 20mg Take 20 mg Univers n 20 mg 1-19 by mouth ity of tablet 11:37: at [place] [address] bedtime. Medical Branch fluticasone 2020-11 Yes 1{spray Use 1 Un delphine 50 1-19 } [place] in ity of mcg/actuati 11:37: each [place] on nasal 16 nostril 2 Medica l spray (two) Branch times daily. aspirin 81 2020-11 Yes 81mg Take 81 mg U nivers mg EC 1-19 by mouth ity of tablet 11:37: daily. [address] Branch multivitami 2020-11 Yes Take by Un delphine n,therapeut 1-19 mouth. ity of ic (THERA 11:37: [place] MULTI-VITAM 16 Medical IN ORAL) Branch metoclopram 2020-11 Yes 5mg Take 5 mg U nivers yaw HCl 5 1-19 by mouth 3 ity of mg tablet 11:37: (three) [address] Medical daily with Branch meals. sevelamer 2020-11 Yes 3200mg Take 3,200 Univers 800 mg 1-19 mg by ity of tablet 11:37: mouth 3 [place] [address] (three) Medical times [place] daily with meals. pantoprazol 2020-11 Yes 40mg Take 40 mg Univers e 20 mg EC 1-19 by mouth ity o f tablet 11:37: daily. [address] Branch EPOETIN 2020-11 Yes [id number] Inject Univer s ZAYDA 1-19 13,000 ity of INJECTION 11:37: Units as [place] [facility] 16 directed Medical weekly. Branch Cholecalcif 2020-11 Yes 1000U Take 1,000 Univers naresh, 1-19 Units by ity of Vitamin D3, 11:37: mouth. [place] [facility] 16 Medical (1,000 Branch unit) capsule atorvastati 2020-11 Yes 20mg Take 20 mg Univers n 20 mg 1-19 by mouth ity of tablet 11:37: at [place] [address] bedtime. Medical Branch fluticasone 2020-11 Yes 1{spray Use 1 Un delphine 50 1-19 } [place] in ity of mcg/actuati 11:37: each [place] on nasal 16 nostril 2 Medica l spray (two) Branch times daily. aspirin 81 2020-11 Yes 81mg Take 81 mg U nivers mg EC 1-19 by mouth ity of tablet 11:37: daily. [address] multivitami 2020-11 Yes Take by Un delphine n,therapeut 1-19 mouth. ity of ic (THERA 11:37: [place] MULTI-VITAM 16 Medical IN ORAL) Branch metoclopram 2020-11 Yes 5mg Take 5 mg U nivers yaw HCl 5 -19 by mouth 3 ity of mg tablet 11:37: (three) [place] [address] times [facility] daily with Branch meals. sevelamer 2020-11 Yes 3200mg Take 3,200 Univers 800 mg 1-19 mg by ity of tablet 11:37: mouth 3 [place] [address] (three) Medical times [place] daily with meals. pantoprazol 2020-11 Yes 40mg Take 40 mg Univers e 20 mg EC 1-19 by mouth ity o f tablet 11:37: daily. [address] Branch EPOETIN 2020-11 Yes [id number] Inject Univer s ZAYDA 1-19 13,000 ity of INJECTION 11:37: Units as [place] [facility] 16 directed Medical weekly. Branch Cholecalcif 2020-11 Yes 1000U Take 1,000 Univers naresh, 1-19 Units by ity of Vitamin D3, 11:37: [place]. [place] 25 mcg 16 Medical (1,000 Branch unit) capsule atorvastati 2020-11 Yes 20mg Take 20 mg Univers n 20 mg 1-19 by mouth ity of tablet 11:37: at [place] [address] bedtime. Medical Branch fluticasone 2020-11 Yes 1{spray Use 1 Un delphine 50 1-19 } [place] in ity of mcg/actuati 11:37: each [place] on nasal 16 nostril 2 Medica l spray (two) Branch times daily. aspirin 81 2020-11 Yes 81mg Take 81 mg U nivers mg EC 1-19 by mouth ity of tablet 11:37: daily. [address] Branch multivitami 2020-11 Yes Take by Un delphine n,therapeut 1-19 mouth. ity of ic (THERA 11:37: [place] MULTI-VITAM Medical IN ORAL) Branch metoclopram 2020-11 Yes 5mg Take 5 mg U nivers yaw HCl 5 1-19 by mouth 3 ity of mg tablet 11:37: (three) [place] [address] times Medical daily with Branch meals. sevelamer 2020-11 Yes 3200mg Take 3,200 Univers 800 mg 1-19 mg by ity of tablet 11:37: mouth 3 [place] [address] (three) Medical times [place] daily with meals. pantoprazol 2020-11 Yes 40mg Take 40 mg Univers e 20 mg EC 1-19 by mouth ity o f tablet 11:37: daily. [address] Branch EPOETIN 2020-11 Yes [id number] Inject Univer s ZAYDA 1-19 13,000 ity of INJECTION 11:37: Units as [place] [facility] 16 directed Medical weekly. Branch Cholecalcif 2020-11 Yes 1000U Take 1,000 Univers naresh, 1-19 Units by ity of Vitamin D3, 11:37: mouth. [place] 25 mcg 16 Medical (1,000 Branch unit) capsule atorvastati 2020-11 Yes 20mg Take 20 mg Univers n 20 mg 1-19 by mouth ity of tablet 11:37: at [place] [address] bedtime. Medical Branch fluticasone 2020-11 Yes 1{spray Use 1 Un delphine 50 1-19 } [place] in ity of mcg/actuati 11:37: each [place] on nasal 16 nostril 2 Medica l spray (two) Branch times daily. aspirin 81 2020-11 Yes 81mg Take 81 mg U nivers mg EC 1-19 by mouth ity of tablet 11:37: daily. [address] multivitami 2020-11 Yes Take by Un delphine n,therapeut 1-19 mouth. ity of ic (THERA 11:37: [place] MULTI-VITAM 16 Medical IN ORAL) Branch metoclopram 2020-11 Yes 5mg Take 5 mg U nivers yaw HCl 5 1-19 by mouth 3 ity of mg tablet 11:37: (three) [place] [address] times Medical daily with Branch meals. sevelamer 2020-11 Yes 3200mg Take 3,200 Univers 800 mg 1-19 mg by ity of tablet 11:37: mouth 3 [place] [address] (three) Medical times [place] daily with meals. pantoprazol 2020-11 Yes 40mg Take 40 mg Univers e 20 mg EC 1-19 by mouth ity o f tablet 11:37: daily. [address] Branch EPOETIN 2020-11 Yes [id number] Inject Univer s ZAYDA -19 13,000 ity [...] by mouth ity of tablet 11:37: at [place] [address] bedtime. Medical Branch fluticasone 2020-11 Yes 1{spray Use 1 Un delphine 50 1-19 } [place] in ity of mcg/actuati 11:37: each [place] on nasal 16 nostril 2 Medica l spray (two) Branch times daily. aspirin 81 2020-11 Yes 81mg Take 81 mg U nivers mg EC 1-19 by mouth ity of tablet 11:37: daily. [address] multivitami 2020-11 Yes Take by Un delphine n,therapeut 1-19 mouth. ity of ic (THERA 11:37: [place] MULTI-VITAM 16 Medical IN ORAL) Branch metoclopram 2020-11 Yes 5mg Take 5 mg U nivers yaw HCl 5 1-19 by mouth 3 ity of mg tablet 11:37: (three) [place] [address] times Medical daily with Branch meals. sevelamer 2020-11 Yes 3200mg Take 3,200 Univers 800 mg 1-19 mg by ity of tablet 11:37: mouth 3 [place] [address] (three) Medical times Branch daily with meals. pantoprazol 2020-11 Yes 40mg Take 40 mg Univers e 20 mg EC 1-19 by mouth ity o f tablet 11:37: daily. [address] Branch EPOETIN 2020-11 Yes [id number] Inject Univer s ZAYDA 1-19 13,000 ity of INJECTION 11:37: Units [place] 16 directed Medical weekly. Branch Cholecalcif 2020-11 Yes 1000U Take 1,000 Univers naresh, 1-19 Units by ity of Vitamin D3, 11:37: mouth. [place] [facility] 16 Medical (1,000 Branch unit) capsule atorvastati 2020-11 Yes 20mg Take 20 mg Univers n 20 mg 1-19 by mouth ity of tablet 11:37: at [place] [address] bedtime. Medical Branch fluticasone 2020-11 Yes 1{spray Use 1 Un delphine 50 1-19 } [place] in ity of mcg/actuati 11:37: each [place] on nasal 16 nostril 2 Medica l spray (two) Branch times daily. aspirin 81 2020-11 Yes 81mg Take 81 mg U nivers mg EC 1-19 by mouth ity of tablet 11:37: daily. [address] Branch multivitami 2020-11 Yes Take by Un delphine n,therapeut 1-19 mouth. ity of ic (THERA 11:37: [place] MULTI-VITAM 16 Medical IN ORAL) Branch metoclopram 2020-11 Yes 5mg Take 5 mg U nivers yaw HCl 5 1-19 by mouth 3 ity of mg tablet 11:37: (three) [address] Medical daily with Branch meals. sevelamer 2020-11 Yes 3200mg Take 3,200 Univers 800 mg 1-19 mg by ity of tablet 11:37: mouth 3 [place] [address] (three) Medical times Branch daily with meals. pantoprazol 2020-11 Yes 40mg Take 40 mg Univers e 20 mg EC 1-19 by mouth ity o f tablet 11:37: daily. [address] EPOETIN 2020-11 Yes [id number] Inject Univer s ZAYDA 1-19 13,000 ity of INJECTION 11:37: Units as [place] [address] directed Medical weekly. Branch Cholecalcif 2020-11 Yes 1000U Take 1,000 Univers naresh, 1-19 Units by ity of Vitamin D3, 11:37: mouth. [place] 25 mcg 16 Medical (1,000 Branch unit) capsule atorvastati 2020-11 Yes 20mg Take 20 mg Univers n 20 mg 1-19 by mouth ity of tablet 11:37: at [place] [address] bedtime. Medical Branch fluticasone 2020-11 Yes 1{spray Use 1 Un delphine 50 -19 } [place] in ity of mcg/actuati 11:37: each [place] on nasal 16 nostril 2 Medica l spray (two) Branch times daily. aspirin 81 2020-11 Yes 81mg Take 81 mg U nivers mg EC 1-19 by mouth ity of tablet 11:37: daily. [address] multivitami 2020-11 Yes Take by Un delphine n,therapeut 1-19 mouth. ity of ic (THERA 11:37: [place] MULTI-VITAM 16 Medical IN ORAL) Branch metoclopram 2020-11 Yes 5mg Take 5 mg U nivers yaw HCl 5 -19 by mouth 3 ity of mg tablet 11:37: (three) [place] [address] times [facility] daily with Branch meals. sevelamer 2020-11 Yes 3200mg Take 3,200 Univers 800 mg 1-19 mg by ity of tablet 11:37: mouth 3 [place] [address] (three) Medical times [place] daily with meals. pantoprazol 2020-11 Yes 40mg Take 40 mg Univers e 20 mg EC 1-19 by mouth ity o f tablet 11:37: daily. [address] EPOETIN 2020-11 Yes [id number] Inject Univer s ZAYDA 1-19 13,000 ity of INJECTION 11:37: Units as [facility] s directed Medical weekly. Branch Cholecalcif 2020-11 Yes 1000U Take 1,000 Univers naresh, 1-19 Units by ity of Vitamin D3, 11:37: mouth. [place] 25 mcg 16 Medical (1,000 Branch unit) capsule atorvastati 2020-11 Yes 20mg Take 20 mg Univers n 20 mg 1-19 by mouth ity of tablet 11:37: at [place] [address] bedtime. Medical Branch fluticasone 2020-11 Yes 1{spray Use 1 Un delphine 50 1-19 } [place] in ity of mcg/actuati 11:37: each [place] on nasal 16 nostril 2 Medica l spray (two) Branch times daily. aspirin 81 2020-11 Yes 81mg Take 81 mg U nivers mg EC 1-19 by mouth ity of tablet 11:37: daily. [address] Branch multivitami 2020-11 Yes Take by Un delphine n,therapeut 1-19 mouth. ity of ic (THERA 11:37: [place] MULTI-VITAM Medical IN ORAL) Branch metoclopram 2020-11 Yes 5mg Take 5 mg U nivers yaw HCl 5 1-19 by mouth 3 ity of mg tablet 11:37: (three) [place] [address] times [facility] daily with Branch meals. sevelamer 2020-11 Yes 3200mg Take 3,200 Univers 800 mg 1-19 mg by ity of tablet 11:37: mouth 3 [place] [address] (three) Medical times Branch daily with meals. pantoprazol 2020-11 Yes 40mg Take 40 mg Univers e 20 mg EC 1-19 by mouth ity o f tablet 11:37: daily. [address] Branch EPOETIN 2020-11 Yes [id number] Inject Univer s ZAYDA 1-19 13,000 ity of INJECTION 11:37: Units [place] 16 directed Medical weekly. Branch Cholecalcif 2020-11 Yes 1000U Take 1,000 Univers naresh, 1-19 Units by ity of Vitamin D3, 11:37: mouth. [place] [facility] 25 [facility]cg Medical (1,000 Branch unit) capsule atorvastati 2020-11 Yes 20mg Take 20 mg Univers n 20 mg 1-19 by mouth ity of tablet 11:37: at [place] [address] bedtime. Medical Branch fluticasone 2020-11 Yes 1{spray Use 1 Un delphine 50 1-19 } [place] in ity of mcg/actuati 11:37: each [place] on nasal 16 nostril 2 Medica l spray (two) Branch times daily. aspirin 81 2020-11 Yes 81mg Take 81 mg U nivers mg EC 1-19 by mouth ity of tablet 11:37: daily. [address] Branch multivitami 2020-11 Yes Take by Un delphine n,therapeut 1-19 mouth. ity of ic (THERA 11:37: [place] MULTI-VITAM 16 Medical IN ORAL) Branch metoclopram 2020-11 Yes 5mg Take 5 mg U nivers yaw HCl 5 1-19 by mouth 3 ity of mg tablet 11:37: (three) [address] Medical daily with Branch meals. sevelamer 2020-11 Yes 3200mg Take 3,200 Univers 800 mg 1-19 mg by ity of tablet 11:37: mouth 3 [place] [address] (three) Medical times [place] daily with meals. pantoprazol 2020-11 Yes 40mg Take 40 mg Univers e 20 mg EC 1-19 by mouth ity o f tablet 11:37: daily. [address] Branch EPOETIN 2020-11 Yes [id number] Inject Univer s ZAYDA 1-19 13,000 ity of INJECTION 11:37: [place] 16 directed Medical weekly. Branch Cholecalcif 2020-11 Yes 1000U Take 1,000 Univers naresh, 1-19 Units by ity of Vitamin D3, 11:37: mouth. [place] [facility] Medical (1,000 Branch unit) capsule atorvastati 2020-11 Yes 20mg Take 20 mg Univers n 20 mg 1-19 by mouth ity of tablet 11:37: at [place] [address] bedtime. Medical Branch fluticasone 2020-11 Yes 1{spray Use 1 Un delphine 50 1-19 } [place] in ity of mcg/actuati 11:37: each [place] on nasal 16 nostril 2 Medica l spray (two) Branch times daily. aspirin 81 2020-11 Yes 81mg Take 81 mg U nivers mg EC 1-19 by mouth ity of tablet 11:37: daily. [address] Branch multivitami 2020-11 Yes Take by Un delphine n,therapeut 1-19 mouth. ity of ic (THERA 11:37: [place] MULTI-VITAM 16 Medical IN ORAL) Branch metoclopram 2020-11 Yes 5mg Take 5 mg U nivers yaw HCl 5 1-19 by mouth 3 ity of mg tablet 11:37: (three) [address] Medical daily with Branch meals. sevelamer 2020-11 Yes 3200mg Take 3,200 Univers 800 mg 1-19 mg by ity of tablet 11:37: mouth 3 [place] 16 (three) Medical times Branch daily with meals. pantoprazol 2020-11 Yes 40mg Take 40 mg Univers e 20 mg EC 1-19 by mouth ity o f tablet 11:37: daily. [place] 16 Medical Branch EPOETIN 2020-11 Yes [id number] Inject Univer s ZAYDA 1-19 13,000 ity [...] of tablet 00:00: mouth [place] 00 daily. [facility] Branch SERTraline 2020-11 Yes 50mg Take 1 Unive rs 50 mg 1-19 tablet by ity of tablet 00:00: mouth [place] 00 daily. [facility] Branch SERTraline 2020-11 Yes 50mg Take 1 Unive rs 50 mg 1-19 tablet by ity of tablet 00:00: mouth [place] 00 daily. [facility] Branch SERTraline 2020-11 Yes 50mg Take 1 Unive rs 50 mg 1-19 tablet by ity of tablet 00:00: mouth [place] 00 daily. [facility] Branch SERTraline 2020-11 Yes 50mg Take 1 Unive rs 50 mg 1-19 tablet by ity of tablet 00:00: mouth [place] 00 daily. [facility] Branch SERTraline 2020-11 Yes 50mg Take 1 Unive rs 50 mg 1-19 tablet by ity of tablet 00:00: mouth [place] 00 daily. [facility] Branch SERTraline 2020-11 Yes 50mg Take 1 Unive rs 50 mg 1-19 tablet by ity of tablet 00:00: mouth [place] 00 daily. [facility] Branch sertraline 2019-11 Yes 50mg QD Take [...] day. l tablet metoclopram 2018-11 Yes 1{tbl} Q.06016235 Take 1 Methodi yaw 2-[id number] (REGLAN) 5 00:00: 3D mouth [address] MG tablet 00 (three) l times a day. sevelamer Yes 800mg Q.[id number] 800 mg 3 Methodi (RENVELA) 9-18 [id number] (three) s t 800 mg 00:00: 3D times a Hospita tablet 00 day with l meals. epoetin 2020- No 80417B Q.86204326 Inject Methodi zayda-epbx 6-12 12- [id number] 13,000 s t 10,000 00:00: 00:00 3W Units Hospita unit/mL 00 :00 under the l solution skin 3 10,000 (three) Units, times a epoetin week. zayda-epbx 3,000 unit/mL solution 3,000 Units injection furosemide 2019-0 Yes 40mg Q2D Take 40 mg M ethodi (LASIX) 40 5-[address] mg tablet 00:00: every Hospita 00 other day. l furosemide 2019-0 Yes [id number] 40mg Take 1 Univers 40 mg 3-27 tablet by ity of tablet 00:00: mouth [place] 00 every Medical morning Branch and evening. furosemide 2019-0 Yes [id number] 40mg Take 1 Univers 40 mg 3-27 tablet by ity of tablet 00:00: mouth [place] 00 every Medical morning Branch and evening. furosemide 2019-0 Yes [id number] 40mg Take 1 Univers 40 mg 3-27 tablet by ity of tablet 00:00: mouth [place] 00 every Medical morning Branch and evening. furosemide 2019-0 Yes [id number] 40mg Take 1 Univers 40 mg 3-27 tablet by ity of tablet 00:00: mouth [place] 00 every Medical morning Branch and evening. furosemide 2019-0 Yes [id number] 40mg Take 1 Univers 40 mg 3-27 tablet by ity of tablet 00:00: mouth [place] 00 every Medical morning Branch and evening. furosemide 2019-0 Yes [id number] 40mg Take 1 Univers 40 mg 3-27 tablet by ity of tablet 00:00: mouth [place] 00 every Medical morning Branch and evening. furosemide 2019-0 Yes [id number] 40mg Take 1 Univers 40 mg 3-27 tablet by ity of tablet 00:00: mouth [place] 00 every Medical morning Branch and evening. furosemide 2019-0 Yes [id number] 40mg Take 1 Univers 40 mg 3-27 tablet by ity of tablet 00:00: mouth [place] 00 every Medical morning Branch and evening. furosemide 2019-0 Yes [id number] 40mg Take 1 Univers 40 mg 3-27 tablet by ity of tablet 00:00: mouth [place] 00 every Medical morning Branch and evening. furosemide 2019-0 Yes [id number] 40mg Take 1 Univers 40 mg 3-27 tablet by ity of tablet 00:00: mouth [place] 00 every Medical morning Branch and evening. furosemide 2019-0 Yes [id number] 40mg Take 1 Univers 40 mg 3-27 tablet by ity of tablet 00:00: mouth [place] 00 every Medical morning Branch and evening. furosemide 2019-0 Yes [id number] 40mg Take 1 Univers 40 mg 3-27 tablet by ity of tablet 00:00: mouth [place] 00 every Medical morning Branch and evening. furosemide 2019-0 Yes [id number] 40mg Take 1 Univers 40 mg 3-27 tablet by ity of tablet 00:00: mouth [place] 00 every Medical morning Branch and evening. furosemide 2019-0 Yes [id number] 40mg Take 1 Univers 40 mg 3-27 tablet by ity of tablet 00:00: mouth [place] 00 every Medical morning Branch and evening. furosemide 2019- Yes [id number] 40mg Take 1 Univers 40 mg 3-27 tablet by ity of tablet 00:00: mouth [place] 00 every Medical morning Branch and evening. furosemide 2019- Yes [id number] 40mg Take 1 Univers 40 mg 3-27 tablet by ity of tablet 00:00: mouth [place] 00 every Medical morning Branch and evening. febuxostat 2020- No [id number] 40mg Take 1 U nivers (ULORIC) 40 [...] mouth Medica l 24 hr 15 daily. [place] capsule calcitriol Yes .25ug QD Take 0.[address] (ROCALTROL) 1-16 [facility]cg [facility] - 0.25 MCG 11:03: mouth Medical capsule 15 daily. [place] aspirin 81 Yes 81mg QD Take [address] MG EC 1-16 by mouth [facility] - tablet 11:03: daily. Medical 15 [place] fluticasone Yes 1{puff} Q.5D Inhale 1 [facility] [...] Immunizations Ordered Filled Immunization Date Status Comments [facility] e Immunization Name Name HEP B, Adult Dosage 2019-01-24 Completed Unive rsity of 00:00:00 [facility] Branch HEP B, Adult Dosage 2019-01-24 Completed Unive rsity of 00:00:00 [facility] Branch HEP B, Adult Dosage 2019-01-24 Completed Unive rsity of 00:00:00 [facility] Branch HEP B, Adult Dosage 2019-01-24 Completed Unive rsity of 00:00:00 [place] [facility] HEP B, Adult Dosage 2019-01-24 Completed Unive rsity of 00:00:00 [facility] Branch HEP B, Adult Dosage 2019-01-24 Completed Unive rsity of 00:00:00 [place] [facility] HEP B, Adult Dosage 2019-01-24 Completed Unive rsity of 00:00:00 [facility] Branch HEP B, Adult Dosage 2019-01-24 Completed Unive rsity of 00:00:00 [facility] Branch HEP B, Adult Dosage 2019-01-24 Completed Unive rsity of 00:00:00 [facility] Branch HEP B, Adult Dosage 2019-01-24 Completed [...] Dosage 2018-12-27 Completed Unive rsity of 00:00:00 [facility] HEP B, Adult Dosage 2018-12-27 Completed Unive rsity of 00:00:00 [facility] Vital Signs Vital Name Observation Time Observation Value Comments Source Systolic blood 2021-10-07 14:06:00 110 mm[Hg] Univer sity of pressure [facility] Diastolic blood 2021-10-07 14:06:00 75 mm[Hg] Unive rsity of pressure [facility] Heart rate 2021-10-07 14:06:00 105 /min Universi ty [facility] Body temperature 2021-10-07 14:06:00 36.67 Sharifa [facility] Respiratory rate 2021-10-07 14:06:00 16 /min [facility] Body height 2021-10-07 14:06:00 167.6 cm [facility] Body weight 2021-10-07 14:06:00 63.504 kg [facility] BMI 2021-10-07 14:06:00 22.60 kg/m2 [facility] Oxygen saturation in 2021-10-07 14:06:00 98 /min [facility] Arterial blood by [facility] Pulse oximetry Branch Systolic blood 2020-10-21 20:25:00 152 mm[Hg] Method ist [facility] pressure Diastolic blood 2020-10-21 20:25:00 77 mm[Hg] [facility] pressure Heart rate 2020-10-21 20:25:00 60 /min [facility] Body height 2020-10-21 20:25:00 167.6 cm [facility] Body weight 2020-10-21 20:25:00 68.04 kg [facility] BMI 2020-10-21 20:25:00 24.21 kg/m2 [facility] Procedures Procedure Date / Time Performed Performing Clinician [place] da silva NM MYOCARDIUM 2021-10-30 20:13:00 Jazlyn Fosterf [facility] PERFUSION STRESS AND Medical Bra nch REST NM MYOCARDIUM 2021-10-30 20:13:00 Mateo, Jazlynvinicio Ganf [facility] PERFUSION STRESS AND Medical Bra nch REST NM MYOCARDIUM 2021-10-30 20:13:00 Mateo Jazlyn [facility] PERFUSION STRESS AND Medical Bra nch REST NM MYOCARDIUM 2021-10-30 20:13:00 Jazlyn Foster [facility] PERFUSION STRESS AND Medical Bra nch REST ECG 12-LEAD 2020-10-22 21:59:06 Joe Guevara [facility] TTE COMPLETE, WO 2020-10-22 21:00:00 [facility] CONTRAST, W DOPPLER ([id number]) Plan of Care Planned Activity Planned Date Details Comments Source Future Scheduled 2020-09-[address] [facility] - Test 00:00:00 malignant neoplasm of [facility] breast (procedure) [code = 529338411] Future Scheduled 2020-07-16 INFLUENZA VACCINE (#1) [facility] - Test 00:00:00 [code = INFLUENZA Medical Ce nter VACCINE (#1)] Future Scheduled 2019-11-[address] [facility] - Test 00:00:00 malignant neoplasm of [facility] colon (procedure) [code = 376976870] Future Scheduled 2017-10-[address] [facility] - Test 00:00:00 WELLNESS (YEAR 2 or Medical Center FIRST YEAR if no IPPE) [code = MEDICARE ANNUAL WELLNESS (YEAR 2 or FIRST YEAR if no IPPE)] Future Scheduled 2016 PNEUMOCOCCAL 65+ YRS [facility] - Test 00:00:00 (1 of 1 - Medical Center [id number] PCV13) [code = PNEUMOCOCCAL 65+ YRS (1 of 1 - [id number] PCV13)] Future Scheduled COVID-19 [facility]INE ([facility] [code = COVID-19 VACCINE (1)] Future Scheduled BREAST CANCER [facility] Test SCREENING [code = BREAST CANCER [...] Facility Department ID 2021-12-08 2021-12-08 Outpatient R [facility] [id number] - Univers 07:00:00 07:00:00 [id number] ity of [facility] 2021-12-08 2021-12-08 Outpatient R LILIANADAYDAYTimothy [facility] [id number] Univers 07:00:00 07:00:00 PRIYANKA [facility] ity of [facility] 2021-11-17 2021-11-17 Telephone [facility] 1.2.840.114 [id number] Univers 00:00:00 00:00:00 Fidel Arias MULTISPEC 350.1.13.10 it[place] [id number] [address] DIABETES CLINIC 2021-11-17 2021-11-17 Telephone [facility] 1.2.840.114 [id number] Univers 00:00:00 00:00:00 Fidel Arias MULTISPEC 350.1.13.10 it[place] [id number] [address] DIABETES CLINIC 2021 2021 Telephone OSORIO Gramajo 1.2.840.114 [id number] Univers 00:00:00 00:00:00 [facility] 350.1.13.10 ity of [facility] 4.2.7.2.686 [place] as [id number] [address] 2021 2021 Telephone [facility] 1.2.840.114 [id number] Univers 00:00:00 00:00:00 [facility] 350.1.13.10 ity of [place] [id number] [address] OFFICE BUILDING 2021-11-03 2021-11-03 Telephone [facility] 1.2.840.114 [id number] Univers 00:00:00 00:00:00 [facility] 350.1.13.10 ity of [place] [id number] [address] OFFICE BUILDING 2021-10-31 2021-10-31 Telephone [facility] 1.2.840.114 [id number] Univers 00:00:00 00:00:00 Parra A MULTISPEC 350.1.13.10 it[place] [id number] [address] DIABETES CLINIC 2021-10-31 2021-10-31 Telephone [facility] 1.2.840.114 [id number] Univers 00:00:00 00:00:00 Parra A MULTISPEC 350.1.13.10 it[place]2.[place] [id number] [address] DIABETES CLINIC 2021-10-30 2021-10-30 [facility] 1.2.325.923 [id number] Univers 11:44:11 23:59:00 Encounter Jazlyn Torres SPECIALTY 350.1.13.10 ity of CARE [place]2.[place].2.[place] AT [id number] [address] 2021-10-30 2021-10-30 [facility] 1.2.400.053 [id number] Univers 11:43:52 11:43:52 Encounter Jazlyn Torres SPECIALTY 350.1.13.10 ity of C[place]2.[place] AT [id number] Sc [address] 2021-10-30 2021-10-30 [facility] 1.2.433.963 [id number] Univers 11:43:29 11:43:29 Encounter Jazlyn Torres SPECIALTY 350.1.13.10 ity of CARE 4.2.7.2.[place] AT [id number] Sc [address] 2021-10-30 2021-10-30 Outpatient R [facility] [id number] Univers 11:42:41 11:42:41 JAZLYN ity of [facility] 2021-10-30 2021-10-30 [facility] 1.2.791.805 [id number] Univers 11:42:41 11:42:41 Encounter Jazlyn Torres SPECIALTY 350.1.13.10 ity of CARE 4.2.[place].2.[place] AT [id number] Sc dav SANZ 805 [facility] 2021-10-30 2021-10-30 Telephone [facility] 1.2.840.114 [id number] Univers 00:00:00 00:00:00 Parra A MULTISPEC 350.1.13.10 ity of [place]2.[place] [id number] [address] DIABETES CLINIC 2021-10-21 2021-10-21 Telephone [facility] 1.2.840.114 [id number] Univers 00:00:00 00:00:00 Jazlyn Torres MULTISPEC 350.1.13.10 it[place]2.[place] [id number] [address] DIABETES CLINIC 2021-10-20 2021-10-20 Committee Billy [facility] 1.2.840.114 [id number] Univers 00:00:00 00:00:00 Review Ynes goodwin MULTISPEC 350.1.13.10 ity [place] 4.2[place]2.[place] [id number] [address] DIABETES CLINIC 2021-10-15 2021-10-15 Telephone [facility] 1.2.840.114 [id number] Univers 00:00:00 00:00:00 Parra A MULTISPEC 350.1.13.10 ity [place].2[place]2.[place] [id number] [address] DIABETES CLINIC 2021-10-07 2021-10-07 Office Michael Guillen [facility] 1.2.840.1 [id number] Univers 07:57:43 08:37:36 Visit Raymundo, Ivett Tiara MULTISPEC 350.1.1 3.10 ity of [place] 4.2.7.2.[place] [id number] [facility] AND DIAZ 086 Branch DIABETES CLINIC 2021-06-02 2021-06-02 Orders [facility] 1.2.840.114 [id number] 00:00:00 00:00:00 Only [place]ra A MULTISPEC 350.1.13.10 IALTY 4.2.7.2.686 [place] [id number] AND DIAZ 312 [facility]ES CLIN[facility] 2021-05-29 2021-05-29 Telephone [facility] 1.2.840.114 [id number] 00:00:00 00:00:00 [place] A MULTISPEC 350.1.13.10 IALTY 4.2.7.2.686 [place] [id number] AND DIAZ 312 [facility]ES [facility]IN[facility] 2021-05-28 2021-05-28 Telephone [facility] 1.2.840.114 [id number] 00:00:00 00:00:00 Parra A MULTISPEC 350.1.13.10 IALTY 4.2.7.2.686 [place] [id number] AND DIAZ 312 [facility]ES CLIN[facility] 2021-05-26 2021-05-26 Committee [facility] 1.2.840.114 [id number] 00:00:00 00:00:00 Review Parra A MULTISPEC 350.1.13.10 IALTY 4.2.7.2.686 [place] [id number] AND JOE 312 DIABETES CLINIC 2021-05-26 2021-05-26 Tyree [facility] 1.2.840.114 [id number] 00:00:00 00:00:00 Management Kat Peña MULTISPEC 350.1.13.10 IALTY 4.2.7.2.686 [place] [id number] AND JOE 189 DIABETES CLINIC 2021-05-14 2021-05-14 [facility] 1.2.840.114 [id number] 09:18:12 23:59:00 Encounter Ynes goodwin 350.1.13.10 [place] 4.2.7.2.686 [place] [id number] 801 2021-04-21 2021-04-21 Orders Doctor NESS 1.2.840.114 [id number] 00:00:00 00:00:00 Only Unassigned, JACQUIE 350.1.13.10 [place] [facility] 4.2.7.2.686 [id number] 009 2021-03-05 2021-03-05 Office [facility] 1.2.840.114 [id number] 12:28:23 15:45:06 Visit Jazlyn Torres MULTISPEC 350.1.13.10 IALTY 4.2.7.2.686 [place] [id number] [facility] [place] [facility] 2021-01-14 2021-01-14 Orders Doctor NESS 1.2.840.114 [id number] 00:00:00 00:00:00 Only Unassigned, JACQUIE 350.1.13.10 [place] [facility] 4.2.7.2.686 [id number] 009 2020-12-19 2020-12-19 Telephone Julio, 1.2.840.1 [id number] Methodi 00:00:00 00:00:00 Naim[address] Moyer [address] 3.430.2.7 Hospit a .3.184204 l .8 2020-10-22 2020-10-22 Multidisci [place], 1.2.840.1 [id number] Methodi 14:52:35 16:10:45 plkylah Berger 52792.1.1 508 s t Visit 3.430.2.7 Hospit a .3.063377 l .8 2020-10-22 2020-10-22 Travel 1.2.840.1 1.2.803.664 [id number] Methodi 00:00:00 00:00:[address] 3.430.2.7 0.2.7.3.698 Ho spita .3.940012 084.8 l .8 2020-10-21 2020-10-21 Travel 1.2.840.1 1.2.384.188 [id number] Methodi 00:00:00 00:00:[address] 3.430.2.7 0.2.7.3.698 grabielta .3.871201 084.8 l .8 Results Test Description Test [...] of 23-APR-2020 14:14,-No significant change was found- [facility] [id number] 16:29:00 Test Item Value Reference Range Interpretation Comments CULTURE (BEAKER) (test >100,000 col/mL skin code = 1095) stanley CYTOMEGALOVIRUS ANTIBODY, [id number] 12:23:00 Test Item Value Reference Range Interpretation Comments CYTOMEGALOVIRUS IGM ANTIBODY Negative Negative, Equivocal (BEAKER) (test code = 3437) CMV IgM Result Interpretation: </= 0.8 Al Negative 0.9-1.0 Al Equivocal >/= 1.1 Al PositiveCARDIOLIPIN ANTIBODIES, IGG AND [id number] 12:18:00 Test Item Value Reference Range Interpretation Comments ANTICARDIOLIPIN IGG ANTIBODY (BEAKER) < GPL <20.0 (test code = 712) ANTICARDIOLIPIN IGM ANTIBODY (BEAKER) < MPL <20.0 (test code = 713) Anticardiolipin IgG Result Interpretation: <20.0 GPL Normal>/= 20.0 GPL PositiveAnticardiolipin IgM Result Interpretation: <20.0 MPL Normal>/= 20.0 MPL PositiveCYTOMEGALOVIRUS ANTIBODY, [id number] 12:18:00 Test Item Value Reference Range Interpretation Comments CYTOMEGALOVIRUS, IGG (BEAKER) Positive Negative, Equivocal A (test code = 3429) CMV IgG Result Interpretation: </= 0.8 Al Negative 0.9-1.0 Al Equivocal >/=1.1 Al PositiveEBV ANTIBODY, [id number] 12:18:00 Test Item Value Reference Range Interpretation Comments LAUREEN WEBSTER VIRAL CAPSID Positive Negative, Equivocal A ANTIGEN IGG (Atira SystemsAKER) (test code = 3415) Laureen Webster Viral Capsid Antigen IgG Result Interpretation: </= 0.8 Al Negative 0.9-1.0 Al Equivocal >/= 1.1 Al PositiveDOUBLE-STRANDED DNA (DSDNA) [id number] 11:08:00 Test Item Value Reference Range Interpretation Comments ANTI-DNA DS (BEAKER) (test code = Negative 1059) EBV ANTIBODY, [id number] 10:52:00 Test Item Value Reference Range Interpretation Comments LAUREEN WEBSTER VIRAL CAPSID Negative Negative, Equivocal ANTIGEN IGM (Stuffle) (test code = 3418) Laureen Webster Viral Capsid Antigen IgM Result Interpretation: </= 0.8 Al Negative 0.9-1.0 Al Equivocal >/= 1.1 Al PositiveVARICELLA ZOSTER ANTIBODY, [id number] 10:52:00 Test Item Value Reference Range Interpretation Comments VARICELLA ZOSTER IGG (AL) (BEAKER) 7.3 (test code = 3197) VARICELLA ZOSTER RESULT INTERPRETATIONS: <=0.8 Al Nonreactive: Presumed non-immune to VZV 0.9-1.0 Al Equivocal >=1.1 Al Reactive: Presumed immune to [id number] 13:57:00 Test Item Value Reference Range Interpretation Comments RPR SCREEN (BEAKER) (test code = Nonreactive Nonreactive 420) 1:1 MIXING STUDY, [id number] 11:12:00 Test Item Value Reference Range Interpretation Comments PROTIME (BEAKER) (test code = 13.8 seconds 11.7-14.7 759) PARTIAL THROMBOPLASTIN TIME 31.6 seconds 22.5-36.0 (BEAKER) (test code = 760) PT 1/1 MIX (BEAKER) (test code = 13.5 SECS 11.7-14.7 1595) PTT 1/1 MIX (BEAKER) (test code 31.9 SECS 22.5-36.0 = 1596) HEPATITIS B SURFACE [id number] 10:16:00 Test Item Value Reference Range Interpretation Comments HEPATITIS B SURFACE ANTIBODY < mIU/mL <8.0 (BEAKER) (test code = 647) HEPATITIS B SURFACE [id number] 09:48:00 Test Item Value Reference Range Interpretation Comments HEPATITIS B SURFACE ANTIGEN (2) Nonreactive Nonreactive (BEAKER) (test code = 2585) HEPATITIS B CORE ANTIBODY, [id number] 09:48:00 Test Item Value Reference Range Interpretation Comments HEPATITIS B CORE IGM ANTIBODY Nonreactive Nonreactive (BEAKER) (test code = 645) HEPATITIS C [id number] 09:42:00 Test Item Value Reference Range Interpretation Comments HEPATITIS C ANTIBODY (BEAKER) Nonreactive Nonreactive (test code = 367) HIV-1 ANTIGEN WITH HIV-1/2 [id number] 09:42:00 Test Item Value Reference Range Interpretation Comments HIV-1 ANTIGEN WITH HIV 1\T\2 Nonreactive Nonreactive ANTIBODY (2) (BEAKER) (test code = 2586) HEMOGLOBIN [id number] 09:33:00 Test Item Value Reference Range Interpretation Comments HEMOGLOBIN A1C (BEAKER) (test code = 5.2 % 4.3-6.1 368) COMPLEMENT COMPONENT [id number] 09:29:00 Test Item Value Reference Range Interpretation Comments C4 COMPLEMENT (BEAKER) (test code = 39 mg/dL 15-57 394) COMPLEMENT COMPONENT [id number] 09:29:00 Test Item Value Reference Range Interpretation Comments C3 COMPLEMENT (BEAKER) (test code = 82 mg/dL 82-193 393) COMPREHENSIVE METABOLIC [id number] 09:29:00 Test Item Value Reference Range Interpretation [...] NOT APPLICABLE FOR DIALYSIS PATIEN TS. URIC [id number] 09:25:00 Test Item Value Reference Range Interpretation Comments URIC ACID (BEAKER) (test code = 10.3 mg/dL 2.6-7.2 H 773) [id number] 09:25:00 Test Item Value Reference Range Interpretation [...] U/L 125-220 H code = 635) PTH, [id number] 09:19:00 Test Item Value Reference Range Interpretation Comments PARATHYROID HORMONE INTACT 315.4 pg/mL 8.5-72.5 H (BEAKER) (test code = 577) URINALYSIS W/ [id number] 09:08:00 Test Item Value Reference Range Interpretation [...] = 516) SOURCE(BEAKER) (test code = 2795) [id number] 08:58:00 Test Item Value Reference Range Interpretation [...] % 0-1 PERCENT (BEAKER) (test code = 3431)
[2022-02-19] MEDS ORDERED: ASPIRIN 81 MG CHEWABLE TABLET ONE (16:52)
[2022-02-19 17:09] LABS: Absolute Lymphocytes (CBC) 1.1 K/uL (0.7-4.9); Hematocrit 31.2 % (36.0-45.0); Lymphocytes % 16.5 % (15.3-44.8); MPV 9.1 fL (7.6-11.3); RBC Red Blood Cell Count 3.25 M/uL (3.86-4.86)
[2022-02-19 17:32] LABS: Protime INR 1.12
[2022-02-19] MEDS ORDERED: ONDANSETRON 4 MG/2 ML VIAL ONE (17:42)
[2022-02-19] MEDS ORDERED: MORPHINE 2 MG/ML SYR ONE (17:42)
--- NOTE | 2022-02-19 17:43 | RAD REPORT ---
EXAM DESCRIPTION: RAD - Chest Single View - 02/19/2022 4:59 pm CLINICAL HISTORY: CHEST PAIN COMPARISON: Portable 02/17/2022 TECHNIQUE: AP portable chest image was obtained 02/19/2022 4:59 pm . FINDINGS: No peripheral mass consolidation. Interstitial pattern is prominent but not clearly differ ent from comparison. Mild edema or infiltrate could be masked in this setting. Sternotomy wires are in place. Defibrillator is in place similar to comparison. Cardiomegaly matches comparison. Upper lobe vasculature within normal limits. No measurable pleural e ffusion and no pneumothorax. No acute bony abnormality seen. No acute aortic findings suspected. IMPRESSION: Cardiomegaly without other findings of significant failure or volume overload. Chronic interstitial pattern not substantially different from comparison. Mild interstitial edema or infiltrate could be masked.
[2022-02-19 18:00] LABS: ALT/SGPT 49 U/L (12-78); AST/SGOT 58 U/L (15-37); Albumin 2.1 g/dL (3.4-5.0); Alkaline Phosphatase 200 U/L (45-117); BUN Blood Urea Nitrogen 54 mg/dL (7-18); Bicarbonate 23 mmol/L (21-32); Bilirubin Direct 0.2 mg/dL (0-0.2); Bilirubin Total 0.4 mg/dL (0.2-1.0); Glucose Level 106 mg/dL (74-106); Magnesium 2.1 mg/dL (1.8-2.4); NT PRO-BNP > 35000 pg/mL (<125); Potassium 4.4 mmol/L (3.5-5.1); Sodium Level 128 mmol/L (136-145)
[2022-02-19 19:03] LABS: Troponin High Sensitivity 583.4 pg/mL (<58.9)
[2022-02-19] MEDS ORDERED: HEPARIN 5000 UNIT/ML 1 ML VIAL ONE (20:09)
--- NOTE | 2022-02-19 21:01 | ER ---
Nurse's Notes [facility] Name: Cheyanne Haywood Age: 71 yrs Sex: Female : 1950 Arrival Date: 02/19/2022 Time: 16:22 Bed 25 Private MD: Diagnosis: Chest pain, unspecified;End stage renal disease;Non ST elevation [place] Presentation: 02/19 16:22 Chief complaint: EMS states: "She started having a tingling sensation to the left arm ab2 and it traveled to her chest and she developed chest pain. She was here 2 days ago for the same thing and they diagnosed her with an NSTEMI. Pt took 324 of aspirin prior to arrival.". Coronavirus screen: Vaccine status: Patient reports receiving the 2nd dose of the covid vaccine. Client denies travel out of the [place] in the last 14 days. At this time, the client does not indicate any symptoms associated with coronavirus-19. Ebola Screen: Patient negative for fever greater than or equal to 101.5 degrees Fahrenheit, and additional compatible Ebola Virus Disease symptoms Patient denies exposure to infectious person. Patient denies travel to an Ebola-affected area in the 21 days before illness onset. No symptoms or risks identified at this time. Initial Sepsis Screen: Does the patient meet any 2 criteria? No. Patient's initial sepsis screen is negative. Does the patient have a suspected source of infection? No. Patient's initial sepsis screen is negative. Risk Assessment: Do you want to hurt yourself or someone else? Patient reports no desire to harm self or others. Onset of symptoms is unknown. 16:22 Method Of Arrival: EMS: [facility] ab2 16:22 Acuity: NORMA 3 ab2 Triage Assessment: 16:25 General: Appears in no apparent distress. uncomfortable, Behavior is calm, cooperative, ab2 appropriate for age. Pain: Complains of pain in chest Pain radiates to left arm Pain currently is 7 out of 10 on a pain scale. Neuro: Level of Consciousness is awake, alert, obeys commands, Oriented to person, place, time, situation, Appropriate for age Weaving Machine Operator are equal bilaterally Moves all extremities. Cardiovascular: Denies chest pain, Patient's skin is warm and dry. Respiratory: Airway is patent Respiratory effort is even, unlabored, Respiratory pattern is regular, symmetrical. GI: No deficits noted. No signs and/or symptoms were reported involving the gastrointestinal system. : No deficits noted. No signs and/or symptoms were reported regarding the genitourinary system. Derm: No deficits noted. Skin is intact, Skin is pink, warm \\T\\ dry. Historical: - Allergies: 16:24 No Known Allergies; ab2 - PMHx: 16:24 Depression; ESRD; Hypertension; kidney problems; Lupus; PD- nightly; PERITONEAL ab2 DIALYSIS; - PSHx: 16:24 Aortia repair; Pacemaker placement; TAVR; ab2 - Immunization history:: Adult Immunizations up to date. - Social history:: Smoking status: Patient denies any tobacco usage or history of. Screenin:07 Abuse screen: Denies threats or abuse. Denies injuries from another. Nutritional ld1 screening: No deficits noted. Tuberculosis screening: No symptoms or risk factors identified. Fall Risk None identified. Assessment: 17:07 General: Appears in no apparent distress. comfortable, Behavior is calm, cooperative, ld1 appropriate for age. Pain: Complains of pain in chest Pain radiates to left arm Pain currently is 7 out of 10 on a pain scale. Quality of pain is described as throbbing, Pain began gradually, Is intermittent. Neuro: Level of Consciousness is awake, alert, obeys commands, Oriented to person, place, time, situation. Cardiovascular: Capillary refill < 3 seconds Patient's skin is warm and dry. Rhythm is sinus rhythm. Respiratory: Airway is patent Respiratory effort is even, unlabored, Respiratory pattern is regular, symmetrical. GI: Abdomen is flat, non-distended. : No signs and/or symptoms were reported regarding the genitourinary system. EENT: No signs and/or symptoms were reported regarding the EENT system. Derm: No signs and/or symptoms reported regarding the dermatologic system. Musculoskeletal: No signs and/or symptoms reported regarding the musculoskeletal system. 17:49 Reassessment: Patient appears in no apparent distress at this time. Pt reporting chest ld1 pain and left arm pain. Notified ERP. See MAR for orders. 18:57 Reassessment: Patient appears in no apparent distress at this time. No changes from ld1 previously documented assessment. Patient and/or family updated on plan of care and expected duration. Pain level reassessed. Patient states feeling better. Patient states symptoms have improved. 18:57 Reassessment: Pt family stating that patient needs to perform peritoneal dialysis. Pt ld1 family waiting to see if pt is staying in the hospital overnight. 21:32 Reassessment: No changes from previously documented assessment. I recv'd report on the michell pt in room 25. She is to be transferred for admission. The pt's family remains at bedside. The provider is aware of the hypotension and the pt remains asymptomatic. She did ask for benadryl, but I cautioned her, due to her bp. 21:40 Reassessment: I am attempting to call report to [facility], but there is no michell answer. 21:42 Reassessment: I assisted a pt, as I couldn't remain on hold indefinitely, so I am michell calling back, now, to give report. Again, there was no answer. I will give report to EMS. 22:27 Reassessment: Report given to EMS, as well as, SBAR and her transport papers. The pt's michell sister is at bedside. The pt is going to [facility]. 22:38 Reassessment: The pt was taken via stretcher, with EMS and one of her sisters michell accompanied her. 02/20 00:28 Reassessment: DEBORAH Briceño called to ask for report and asked why I hadn't called. I michell told her that I called the number on the MOT x 2, to no avail. She was pleasant and I gave her report. Vital Signs: 02/19 16:22 BP 113 / 76; Pulse 102; Resp 19; Temp 97.6(TE); Pulse Ox 100% on R/A; Weight 62.14 kg; ab2 Height 5 ft. 6 in. (167.64 cm); Pain 7/10; 17:49 BP 91 / 64; Pulse 99; Resp 17; Pulse Ox 99% on R/A; Pain 7/10; ld1 18:57 BP 102 / 76; Pulse 91; Resp 19; Pulse Ox 96% on R/A; Pain 3/10; ld1 20:00 BP 85 / 57; Pulse 88; michell 21:35 BP 78 / 57; Pulse 89; Resp 16; Temp 98.5; Pulse Ox 99% on R/A; Pain 0/10; michell 22:26 BP 83 / 69; Pulse 96; Resp 18; Temp 98.6; Pulse Ox 98% on R/A; Pain 0/10; michell 16:22 Body Mass Index 22.11 (62.14 kg, 167.64 cm) ab2 ED Course: 16:22 Patient arrived in ED. ab2 16:24 Triage completed. ab2 16:25 Tequila Brady, RN is Primary Nurse. ld1 16:26 Arm band placed on left wrist. ab2 16:27 Kartik Pedro PA is PHCP. jmm 16:27 Taz Arias MD is Attending Physician. [facility] 17:01 XRAY Chest (1 view) In Process Unspecified. EDMS 17:07 Patient has correct armband on for positive identification. Placed in gown. Bed in low ld1 position. Call light in reach. Side rails up X2. monitoring analyst on. Pulse ox on. NIBP on. Door closed. Noise minimized. Warm blanket given. 17:07 No provider procedures requiring assistance completed. Maintain EMS IV. Dressing ld1 intact. Good blood return noted. Site clean \\T\\ dry. Gauge \\T\\ site: 20G LAC. 20:25 SARS-COV-2 RT PCR (Document "Date of Onset" if Symptomatic) Sent. michell Administered Medications: 17:00 Not Given (Pt had 4 81mg aspirin prior to arrival): Aspirin Chewable Tablet 324 mg PO ld1 once; 81 mg tablets x 4 17:49 Drug: morphine 2 mg Route: IVP; Site: left forearm; ld1 17:49 Drug: Zofran (Ondansetron) 4 mg Route: IVP; Site: left antecubital; ld1 20:20 Drug: Heparin ([place]-Bolus No thrombolytic) - HEParin 60 units/kg {Co-Signature: tw5 michell (Ana Ashraf).} Route: IVP; Site: left antecubital; Outcome: 21:01 ER care complete, transfer ordered by . [facility] 21:36 Condition: stable michell 22:29 Transferred by ground EMS to [facility]. michell 22:39 Patient left the ED. michell Signatures: Dispatcher [employer] EDMS Kartik Pedro PA PA jmm Dibbern, Lauren, RN RN ld1 Aster Pascual RN RN Terrance Gonsalez2 Ana Ashraf tw5
--- NOTE | 2022-02-19 21:01 | EDPHYS ---
Physician Documentation [facility] Name: Cheyanne Haywood Age: 71 yrs Sex: Female : 1950 Arrival Date: 02/19/2022 Time: 16:22 Bed 25 Private MD: ED Physician Taz Arias HPI: 02/19 16:37 This 71 yrs old Female presents to ER via EMS with complaints of Chest Pain. m 16:37 The patient or guardian reports chest pain that is located primarily in the substernal [facility] area. Onset: just prior to arrival. The pain radiates to the left arm. Associated signs and symptoms: Pertinent negatives: shortness of breath. The chest pain is described as aching, a pressure. Duration: The patient or guardian reports a single episode, that is still ongoing. Modifying factors: The symptoms are alleviated by nothing. the symptoms are aggravated by nothing. Historical: - Allergies: 16:24 No Known Allergies; ab2 - PMHx: 16:24 Depression; ESRD; Hypertension; kidney problems; Lupus; PD- nightly; PERITONEAL ab2 DIALYSIS; - PSHx: 16:24 Aortia repair; Pacemaker placement; TAVR; ab2 - Immunization history:: Adult Immunizations up to date. - Social history:: Smoking status: Patient denies any tobacco usage or history of. ROS: 16:37 Constitutional: Negative for fever, chills, and weight loss. jmm 16:37 Cardiovascular: Positive for chest pain. 16:37 All other systems are negative. Exam: 16:37 Constitutional: This is a well developed, well nourished patient who is awake, alert, jmm and in no acute distress. Head/Face: atraumatic. Eyes: EOMI, no conjunctival erythema appreciated ENT: Moist Mucus Membranes Neck: Trachea midline, Supple Chest/axilla: Normal chest wall appearance and motion. Cardiovascular: Regular rate and rhythm. No edema appreciated Respiratory: Normal respirations, no respiratory distress appreciated Abdomen/GI: Non distended, soft Back: Normal ROM Skin: General appearance color normal 16:37 Musculoskeletal/extremity: ROM: intact in all extremities. 16:37 Skin: Appearance: Color: normal in color. 16:37 Neuro: Motor: is normal. 16:37 Psych: Behavior/mood is pleasant, cooperative. Vital Signs: 16:22 BP 113 / 76; Pulse 102; Resp 19; Temp 97.6(TE); Pulse Ox 100% on R/A; Weight 62.14 kg; ab2 Height 5 ft. 6 in. (167.64 cm); Pain 7/10; 17:49 BP 91 / 64; Pulse 99; Resp 17; Pulse Ox 99% on R/A; Pain 7/10; ld1 18:57 BP 102 / 76; Pulse 91; Resp 19; Pulse Ox 96% on R/A; Pain 3/10; ld1 20:00 BP 85 / 57; Pulse 88; michell 21:35 BP 78 / 57; Pulse 89; Resp 16; Temp 98.5; Pulse Ox 99% on R/A; Pain 0/10; michell 22:26 BP 83 / 69; Pulse 96; Resp 18; Temp 98.6; Pulse Ox 98% on R/A; Pain 0/10; michell 16:22 Body Mass Index 22.11 (62.14 kg, 167.64 cm) ab2 MDM: 17:37 Patient medically screened. [facility] 19:51 The patient was not given aspirin in the Emergency Department. Patient reports taking [facility] aspirin within the past 24 hours. Data reviewed: vital signs, nurses notes. ED course: Family has a preference to be transferred to a facility with access to peritoneal dialysis. 20:58 ED course: I discussed the patient with Dr. Kamara whom accepted the patient to her [facility] service. . 02/19 16:37 Order name: Basic Metabolic Panel; Complete Time: 19:06 [facility] 02/19 16:37 Order name: CBC with Diff; Complete Time: 17:39 [facility] 02/19 16:37 Order name: LFT's; Complete Time: 19:06 [facility] 02/19 16:37 Order name: Magnesium; Complete Time: 19:06 [facility] 02/19 16:37 Order name: NT PRO-BNP; Complete Time: 19:06 [facility] 02/19 16:37 Order name: PT-INR; Complete Time: 17:39 [facility] 02/19 16:37 Order name: Troponin HS; Complete Time: 19:06 [facility] 02/19 16:37 Order name: XRAY Chest (1 view); Complete Time: 17:46 [facility] 02/19 16:37 Order name: EKG; Complete Time: 16:39 [facility] 02/19 19:16 Order name: SARS-COV-2 RT PCR (Document "Date of Onset" if Symptomatic) [facility] 02/19 16:37 Order name: Cardiac monitoring; Complete Time: 16:46 [facility] 02/19 16:37 Order name: EKG - Nurse/Tech; Complete Time: 16:46 [facility] 02/19 16:37 Order name: IV Saline Lock; Complete Time: 16:46 [facility] 02/19 16:37 Order name: Labs collected and sent; Complete Time: 16:59 [facility] 02/19 16:37 Order name: O2 Per Protocol; Complete Time: 16:46 [facility] 02/19 16:37 Order name: O2 Sat Monitoring; Complete Time: 16:46 [facility] Administered Medications: 17:00 Not Given (Pt had 4 81mg aspirin prior to arrival): Aspirin Chewable Tablet 324 mg PO ld1 once; 81 mg tablets x 4 17:49 Drug: morphine 2 mg Route: IVP; Site: left forearm; ld1 17:49 Drug: Zofran (Ondansetron) 4 mg Route: IVP; Site: left antecubital; ld1 20:20 Drug: Heparin ([place]-Bolus No thrombolytic) - HEParin 60 units/kg {Co-Signature: tw5 michell (Ana Ashraf).} Route: IVP; Site: left antecubital; Disposition Summary: 02/19/22 21:01 Transfer Ordered Transfer Location: Other Acute Care Facility [facility] Reason: Higher level of care jmm Condition: Stable jmm Problem: an acute exacerbation jmm Symptoms: have improved jmm Accepting Physician: Dr. Kamara(02/19/22 22:39) michell Diagnosis - Chest pain, unspecified jmm - End stage renal disease jmm - Non ST elevation [place] jmm Forms: - Medication Reconciliation Form jmm - SBAR form jmm Signatures: Dispatcher [employer] Kartik Orourke PA PA jmm Dibbern, Lauren RN RN ld1 Aster Pascual RN RN Terrance Gonsalez tw5 Corrections: (The following items were deleted from the chart) 22:39 21:01 Dr. Asad lopez michell
[2022-02-20 05:13] VITALS: BP 83/69; TEMP 98.6; O2SAT 98
--- NOTE | 2022-02-20 07:47 | EKG ---
Test Date: 2022-02-19 Test Time: 16:24:44 Bench Carpenter: JONAH MEASUREMENT RESULTS: Intervals: Rate: 99 MN: 166 QRSD: 170 QT: 422 QTc: 541 Gaines: P: 80 MN: 166 QRS: -78 T: 106 INTERPRETIVE STATEMENTS: Atrial-sensed ventricular-paced rhythm Abnormal ECG Compared to ECG 02/17/2022 07:01:25 No significant changes Electronically Signed On 02-20-22 07:45:57 CDT by Matthew Braden
== END 2022-02-19 22:39 ==
LOC: ER 15:53
DX: I21.4 Non-ST elevation (NSTEMI) myocardial infarction (principal); I12.0 Hypertensive chronic kidney disease with stage 5 chronic kidney disease or end stage renal disease; N18.6 End stage renal disease; F32.A Depression, unspecified; Z99.2 Dependence on renal dialysis; Z95.0 Presence of cardiac pacemaker; Z20.822 Contact with and (suspected) exposure to COVID-19
CPT/HCPCS: 93005; 85025; 80048; 36415; 83735; 85610; 80076; 84484; 83880; 71045; 99285; U0003; J1644; J2270; J2405